=== PATIENT | female | born 1955 | race Caucasian/White ===

== ENCOUNTER 2017-04-25 13:11 | Outpatient (RCR) | payer MEDICARE, MEDICAID, SELFPAY ==
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
--- NOTE | 2017-05-24 14:43 | HP.PTDCNRP_ITS ---
HP - Discharge Summary (1) - Patient Information DIONE LOWE was seen in my office for initial evaluation on 04/25/17. The following Plan of Care was established for this patient: Initial Frequency: 2-3x /Week Initial Duration: 4-6 Weeks - Anticipated Interventions Patient/Client Instruction: Educate patient on: Condition, Plan of Care For the Purpose of:: To improve self management Therapeutic Exercise to Include: Strength training, Endurance training, Postural training, Flexibilty training, Active ROM, Scapular Strength/ Stabilization For the Purpose of:: To decrease pain, To increase ROM, To improve muscle performance and motor function Cryotherapy (ice pack, ice massage): Yes For the Purpose of:: To decrease pain This patient was last seen in our office . Pertinent comments regarding their Physical therapy will appear below: Pt phoned the clinic on the date of 05/21/17 to report she wanted to cancel all of her appt's and be discharged at that time. At this point I will be discontinuing this patient from physical therapy. I would be happy to see this patient again in the future if found appropriate by the physician. Thank you! Michael Matthew, PT,
== END 2017-04-25 19:00 | disposition home or self-care (01) ==
LOC: PT 13:11
PROVIDERS: Family Provider Student in an Organized Health Care Education/Training Program; PCP Student in an Organized Health Care Education/Training Program; Visit Provider Orthopaedic Surgery
DX: M75.101 Unspecified rotator cuff tear or rupture of right shoulder, not specified as traumatic (principal)
CPT/HCPCS: 97162

== ENCOUNTER → 2017-06-19 20:00 | Outpatient (CLI) | payer MEDICARE, MEDICAID, SELFPAY | PROVIDERS: Family Provider Student in an Organized Health Care Education/Training Program; PCP Student in an Organized Health Care Education/Training Program; Visit Provider Nurse Practitioner Adult Health | DX: G47.33 Obstructive sleep apnea (adult) (pediatric) (principal) | CPT/HCPCS: 95810 ==

== ENCOUNTER → 2017-08-07 15:37 | Outpatient (CLI) | payer MEDICARE, MEDICAID, SELFPAY ==
--- NOTE | 2017-08-07 15:40 | RAD_ITS ---
STUDY: X-RAY - PELVIS AND RIGHT HIP REASON FOR EXAM: Female, 61 years old. Chronic pain TECHNIQUE: Three views of the pelvis and hip were obtained. COMPARISON: May 29, 2016 FINDINGS: The bowel gas pattern is unremarkable. Phleboliths are stable in the lower pelvis. The visualized iliac wings, sacroiliac joints and sacrum are unremarkable. No abnormalities are seen in the visualized superior and inferior pubic rami. Normal appearing pubic symphysis. The visualized ischial tuberosities are unremarkable. There is bony overgrowth off the femoral head. There is minimal sclerosis in the upper right acetabulum. There is moderate articular joint space narrowing of the hip. RAD/Hip 2-3 Views with Pelvis IMPRESSION: Moderate degenerative changes are again seen in the right hip. Electronically Signed: Alisa Leal MD at 2:16 EDT Tel Direct: [phone], Service support ,
== END ==
PROVIDERS: Family Provider Student in an Organized Health Care Education/Training Program; PCP Student in an Organized Health Care Education/Training Program; Visit Provider Anesthesiology
DX: M16.11 Unilateral primary osteoarthritis, right hip (principal)
CPT/HCPCS: 73502

== ENCOUNTER → 2017-08-19 15:41 | Outpatient (CLI) | payer MEDICARE, MEDICAID, SELFPAY ==
--- NOTE | 2017-08-19 15:45 | BI_ITS ---
MAMMOGRAPHY - BILATERAL SCREENING 3-D ENEDINA SYNTHESIS REASON FOR EXAM: Female, 61 years old. Bilateral Screening 3-D tomosynthesis PERTINENT HISTORY: No significant family history. TECHNIQUE: 2-D mammograms and 3-D Enedina synthesis of the breast (s) were performed. CAD was performed. COMPARISON: December 23, 2015. FINDINGS: The breast composition is composed of scattered fibroglandular density. Scattered benign calcifications are seen. No dense spiculated masses or suspicious microcalcifications are identified. No architectural distortion is identified. There is no skin thickening or retraction. There has been no significant change since the prior study. BI/SCREENING MAMM (CAD), BILAT IMPRESSION: No mammographic signs of malignancy. Routine yearly mammograms recommended. ASSESSMENT CATEGORY: BIRADS Category 2: Benign. A letter regarding these results will be sent to the patient by the facility within 30 days. FOLLOW UP RECOMMENDATION: Yearly follow up mammogram recommended. (A) Approximately 10% of breast cancers are not detected by mammography. A normal mammogram should not delay biopsy of a clinically suspicious abnormality. Electronically Signed: Jacob Solo MD at 7:46 EDT , Service support ,
== END ==
PROVIDERS: Family Provider Student in an Organized Health Care Education/Training Program; PCP Student in an Organized Health Care Education/Training Program; Visit Provider Obstetrics & Gynecology
DX: Z12.31 Encounter for screening mammogram for malignant neoplasm of breast (principal)
CPT/HCPCS: 77063; 77067

== ENCOUNTER → 2017-11-19 17:11 | Outpatient (CLI) | payer MEDICARE, MEDICAID, SELFPAY ==
[2017-11-19 18:31] LABS: Absolute Lymphocyte Count 3.43 X10^3/ul (0.83-4.51); Absolute Neutrophil Count 4.3 X10^3/uL (2.0-7.7); Basophil# 0.08 X10^3/uL; Basophil% 0.9 % (0-1); Eosinophil# 0.54 X10^3/uL; Eosinophils% 5.8 % (0-5); Hematocrit 39.6 % (37-47); Hemoglobin 12.7 g/dl (12.0-15.0); Lymphocyte # 3.43 X10^3/ul (4.0); Lymphocyte % 36.8 % (19-41); Mean Corp Hgb Conc 32.1 g/gl (32-36); Mean Corpuscular Hgb 32.6 pg (27.0-32.0); Mean Corpuscular Volume 101.5 fL (81-99); Mean Platelet Vol. 10.4 fl (6.2-12.0); Monocyte# 0.99 X10^3/uL; Monocyte% 10.6 % (0-10); Neutrophil # 4.27 X10^3/uL (2.7-7.7); Neutrophil % 45.8 % (47-70); Platelet Count 291 K/mm3 (150-450); RBC Distribution Width CV 12.7 % (11.6-14.6); RBC Distribution Width SD 47.4 fl (35.1-43.9); White Blood Count 9.3 K/mm3 (4.4-11.0)
[2017-11-19 18:44] LABS: ALB/GLOB Ratio 0.9 RATIO (0.9-2.4); AST(SGOT) 12 U/L (15-37); Alanine Aminotransfer ALT/SGPT 16 U/L (13-56); Alkaline Phosphatase 92 U/L (45-117); Anion Gap 8 (5-15); BUN 8 mg/dL (7-18); BUN/Creat Ratio 10.1 RATIO (10-20); Calcium,Total 8.4 mg/dL (8.5-10.1); Chloride 105 mmol/L (98-107); Creatinine, Serum 0.79 mg/dL (0.55-1.02); EST Glomerular Filtration Rate 79 mL/min (>60); Est Glom Filt Rate - Afr Amer 95 mL/min (>60); Globulin 3.5 g/dL (2.2-4.2); Glucose 128 mg/dL (74-106); POSITIVE COUNT NO; POSITIVE DIFFERENTIAL NO; POSITIVE MORPHOLOGY NO; Potassium 3.7 mmol/L (3.5-5.1); Protein, Total 6.5 g/dL (6.4-8.2); Sodium Level 141 mmol/L (136-145)
[2017-11-19 18:58] LABS: Valproic Acid (Depakene) Level 43 ug/mL (50-100)
[2017-11-22 09:51] LABS: Topiramate 4.3 ug/mL (2.0-25.0)
== END ==
PROVIDERS: Family Provider Student in an Organized Health Care Education/Training Program; PCP Student in an Organized Health Care Education/Training Program
DX: R56.9 Unspecified convulsions (principal)
CPT/HCPCS: 36415; 80053; 80164; 80185; 80201; 85025

== ENCOUNTER 2017-12-02 17:53 | Emergency (ER) | payer MEDICARE, MEDICAID, SELFPAY ==
[2017-12-02 17:57] VITALS: BP 98/79; PULSE 96; RESP 20; TEMP 37; O2SAT 96; BMI 42.6
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
[2017-12-02] MEDS: oxyCODONE 5 MG Tablet PO (18:24)
[2017-12-02] MEDS: Gabapentin 300 MG Capsule PO (18:29)
[2017-12-02 18:54] VITALS: RESP 16
[2017-12-02 19:00] VITALS: RESP 16
[2017-12-02 20:24] VITALS: BP 138/79; PULSE 84; RESP 16; O2SAT 98
== END 2017-12-02 20:27 | disposition home or self-care (01) ==
PROVIDERS: Emergency Provider Emergency Medicine; Family Provider Student in an Organized Health Care Education/Training Program; PCP Student in an Organized Health Care Education/Training Program
DX: M54.9 Dorsalgia, unspecified (principal); G89.29 Other chronic pain; R46.89 Other symptoms and signs involving appearance and behavior; E11.9 Type 2 diabetes mellitus without complications; I34.1 Nonrheumatic mitral (valve) prolapse; Z79.82 Long term (current) use of aspirin; Z79.899 Other long term (current) drug therapy; Z72.0 Tobacco use
CPT/HCPCS: 99285

== ENCOUNTER 2018-01-13 10:34 | Emergency (ER) | payer MEDICARE, MEDICAID, SELFPAY ==
[2018-01-13 10:37] VITALS: BP 117/74; PULSE 93; RESP 18; TEMP 36.7; O2SAT 99; BMI 40.2
[2018-01-13] MEDS: Acetaminophen 500 MG Tablet 1000 MG PO (10:52)
[2018-01-13] MEDS: Diphth,Pertuss(Acell),Tet Vac 0.5 ML Vial IM (10:53)
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
--- NOTE | 2018-01-13 11:00 | RAD_ITS ---
STUDY: X-RAY - LEFT FOOT CLINICAL: Female, 62 years old. Injury to the second toe. TECHNIQUE: 3 view(s) of the foot. COMPARISON: None. FINDINGS: There is a plantar calcaneal spur. Normal visualized subtalar, talonavicular, calcaneocuboid, tarsal and tarsometatarsal articulations. Normal metatarsi. Normal metatarsophalangeal joint of the great toe. Normal tibial and fibular sesamoid bones. Normal interphalangeal joint of the great toe. Normal phalanges of the great toe. Normal second through fifth metatarsophalangeal joints. Normal interphalangeal joints and phalanges of the lesser toes. Soft tissue swelling. There is evidence of soft tissue injury overlying the distal phalanx of the second toe. RAD/Foot min 3 Views IMPRESSION: Soft tissue swelling with a soft tissue injury overlying the tuft of the distal phalanx of the second toe. Electronically Signed: Raoul Cobian MD at 11:25 EDT Tel [phone], Service support ,
[2018-01-13 11:35] VITALS: BP 140/90; PULSE 87; RESP 16; O2SAT 98
== END 2018-01-13 11:45 | disposition home or self-care (01) ==
LOC: ED 11:37
PROVIDERS: Emergency Provider Emergency Medicine; Family Provider Internal Medicine; PCP Internal Medicine
DX: S92.532B Displaced fracture of distal phalanx of left lesser toe(s), initial encounter for open fracture (principal); S91.215A Laceration without foreign body of left lesser toe(s) with damage to nail, initial encounter; W22.09XA Striking against other stationary object, initial encounter; Y93.01 Activity, walking, marching and hiking; H54.8 Legal blindness, as defined in USA; I10 Essential (primary) hypertension; E11.9 Type 2 diabetes mellitus without complications; Z79.84 Long term (current) use of oral hypoglycemic drugs; Z79.82 Long term (current) use of aspirin; Z79.899 Other long term (current) drug therapy; Z87.891 Personal history of nicotine dependence
CPT/HCPCS: 73630; 90715; 99283

== ENCOUNTER → 2018-02-07 15:47 | Outpatient (CLI) | payer MEDICARE, MEDICAID, SELFPAY ==
--- NOTE | 2018-02-07 16:22 | RAD_ITS ---
STUDY: X-RAY - PELVIS AND LEFT HIP REASON FOR EXAM: Female, 62 years old. Left hip pain TECHNIQUE: Radiological exam, hip, unilateral, with pelvis when performed; 2 or 3 views. COMPARISON: None. FINDINGS: There is a non-specific bowel gas pattern. Normal visualized soft tissue structures. Severe degenerative narrowing of the right hip. Normal bilateral iliac wings, sacroiliac joints and visualized sacrum. Normal bilateral superior and inferior pubic rami. Normal pubic symphysis. Normal bilateral ischial tuberosities. Normal visualized femoral head. There is osteoarthritic spur formation of the acetabular rim. There is mild articular joint space narrowing of the hip. RAD/HIP, UNI W/ Pelvis 2-3 Views IMPRESSION: Degenerative findings of the hips. Electronically Signed: Michael Giordano MD at 17:55 EDT , Service support ,
[2018-02-07 17:53] LABS: Amphetamine Urine VISTA NEGATIVE (<1000 ng/mL); Barbiturate Urine VISTA NEGATIVE (< 200 ng/mL); Benzodiazepine Urine VISTA NEGATIVE (< 200 ng/mL); Cocaine Urine VISTA NEGATIVE (< 300 ng/mL); Ecstacy Urine VISTA NEGATIVE (< 500 ng/mL); Methadone Urine VISTA NEGATIVE (< 300 ng/mL); PCP Urine VISTA NEGATIVE (< 25 ng/mL); THC Urine VISTA NEGATIVE (< 50 ng/mL); Vista UDS pH Range 6
== END ==
PROVIDERS: Family Provider Internal Medicine; PCP Internal Medicine; Referring Provider Anesthesiology; Visit Provider Anesthesiology
DX: F11.20 Opioid dependence, uncomplicated (principal); M25.552 Pain in left hip
CPT/HCPCS: 73502; 80307

== ENCOUNTER 2018-02-19 14:59 | Observation (INO) | payer MEDICARE, MEDICAID, SELFPAY ==
[2018-02-19 15:00] VITALS: BP 136/81; PULSE 89; RESP 16; TEMP 36.7; O2SAT 97; BMI 40.6
--- NOTE | 2018-02-19 16:13 | CT_ITS ---
STUDY: CT BRAIN WITHOUT CONTRAST REASON FOR EXAM: Female, 62 years old. Fell, hit head. RADIATION DOSAGE (If Supplied By Facility): CTDIvol = ( 44.99 ) mGy, DLP = ( 796.11 ) mGycm TECHNIQUE: Transaxial CT imaging of the brain was performed without administration of intravenous contrast material. Individualized dose optimization techniques were used for this CT. COMPARISON: 05/16/2017. FINDINGS: There is mild left frontal soft tissue swelling. Normal calvarium. Normal size ventricles and extra-axial spaces for the patient's age. Normal white matter tracts of the cerebral hemispheres. Normal basal ganglia and thalami. Normal brainstem. Normal cerebellum. There is no intracranial hemorrhage. There are no findings of an acute ischemic infarction. Normal visualized paranasal sinuses. CT/Brain/Head without Contrast IMPRESSION: Mild soft tissue swelling. No intracranial findings. Electronically Signed: Sonal Bedolla MD at 17:54 EDT Tel , Service support ,
--- NOTE | 2018-02-19 16:13 | CT_ITS ---
STUDY: CT CERVICAL SPINE WITHOUT CONTRAST REASON FOR EXAM: Female, 62 years old. Fell, hit head. RADIATION DOSAGE (If Supplied By Facility): CTDIvol = ( 16.38 ) mGy, DLP = ( 326.54 ) mGycm TECHNIQUE: High resolution transaxial imaging was performed without contrast material. Sagittal and coronal images were reconstructed. Individualized dose optimization techniques were used for this CT. COMPARISON: None FINDINGS: Normal craniovertebral junction. Normal anterior atlantoaxial articulation. Normal odontoid process. Normal cervical lordosis. Normal vertebral bodies and posterior osseous elements. C2-3: Normal endplates. Normal disc height and morphology. Normal central canal and intervertebral neuroforamina. C3-4: Normal endplates. Normal disc height and morphology. Normal central canal and intervertebral neuroforamina. C4-5: Normal endplates. Normal disc height and morphology. Normal central canal and intervertebral neuroforamina. There is mild facet hypertrophy, greater on the right. C5-6: Normal endplates. Normal disc height and morphology. Normal central canal and intervertebral neuroforamina. There is mild facet hypertrophy, greater on the right. C6-7: Normal endplates. Normal disc height and morphology. Normal central canal and intervertebral neuroforamina. C7-T1: Normal endplates. Normal disc height and morphology. Normal central canal and intervertebral neuroforamina. Normal visualized soft tissue structures. CT/Spine Cervical without Contras IMPRESSION: 1. No evidence of trauma. 2. Minimal degenerative changes. Electronically Signed: Sonal Bedolla MD at 18:07 EDT Tel , Service support ,
--- NOTE | 2018-02-19 16:21 | EKG12_ITS ---
Test Reason : FALL Blood Pressure : / mmHG Vent. Rate : 084 BPM Atrial Rate : 084 BPM P-R Int : 192 ms QRS Dur : 080 ms QT Int : 384 ms P-R-T Axes : 028 -16 007 degrees QTc Int : 453 ms Normal sinus rhythm Inferior infarct , age undetermined Abnormal ECG Confirmed by CATHY ROJAS, LUIS M ([id number]), content editor PHUONG VELEZ ([id number] on 02/21/2018 1:29:49 PM Referred By: VINCENT Confirmed By:LUIS M MORGAN MD
--- NOTE | 2018-02-19 16:21 | ED.VISSUMM ---
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 Patient was at 180 at a mental health appointment for schizophrenia. They noticed slurred speech and leaning to her right side. When she stood up she fell and hit the left side of her head. She did not lose consciousness. No vomiting. Tetanus is up-to-date. She lives alone. She is a poor historian. Physical Examination: Vitals are stable. Patient is afebrile. Alert no acute distress. HEENT exam is unremarkable. Neck is nontender Lungs are clear and equal bilaterally. Heart is regular rate and rhythm. Abdomen is soft nontender nondistended. Back is nontender Extremities are unremarkable. Skin is warm and dry. Alert and oriented x2, normal strength and sensation, chronically blind Remainder of exam is unremarkable. Emergency Department Course and Treatment: EKG is sinus rate of 84 with no acute ischemic changes. CBC, chemistries unremarkable. Dilantin level 7.5, Depakote level 60. CT head shows no acute process. CT C-spine shows no fracture. Urinalysis is unremarkable. On reevaluation, her symptoms have improved. Her slurred speech and confusion have resolved. She is now alert and oriented x3. NIH is 0. Discussed with the hospitalist for observation. Disposition: Observation Impression: TIA This note was generated with [employer] dictation software. It may contain incorrect words, spelling, and punctuation that were not noted in review of the chart prior to signing ED Disposition - Plan for ED Patient: Chief Complaint: Fall Referrals: Fatoumata Rosen MD [Primary Care Provider] -
--- NOTE | 2018-02-19 16:24 | ED.DCSUM_ITS ---
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 Patient was at 180 at a mental health appointment for schizophrenia. They noticed slurred speech and leaning to her right side. When she stood up she fell and hit the left side of her head. She did not lose consciousness. No vomiting. Tetanus is up-to-date. She lives alone. She is a poor historian. Physical Examination: Vitals are stable. Patient is afebrile. Alert no acute distress. HEENT exam is unremarkable. Neck is nontender Lungs are clear and equal bilaterally. Heart is regular rate and rhythm. Abdomen is soft nontender nondistended. Back is nontender Extremities are unremarkable. Skin is warm and dry. Alert and oriented x2, normal strength and sensation, chronically blind Remainder of exam is unremarkable. Emergency Department Course and Treatment: EKG is sinus rate of 84 with no acute ischemic changes. CBC, chemistries unremarkable. Dilantin level 7.5, Depakote level 60. CT head shows no acute process. CT C-spine shows no fracture. Urinalysis is unremarkable. On reevaluation, her symptoms have improved. Her slurred speech and confusion have resolved. She is now alert and oriented x3. NIH is 0. Discussed with the hospitalist for observation. Disposition: Observation Impression: TIA This note was generated with [employer] dictation software. It may contain incorrect words, spelling, and punctuation that were not noted in review of the chart prior to signing ED Disposition - Plan for ED Patient: Chief Complaint: Fall Referrals: Fatoumata Rosen MD [Primary Care Provider] -
[2018-02-19 16:56] LABS: Absolute Lymphocyte Count 2.79 X10^3/ul (0.83-4.51); Absolute Neutrophil Count 6.5 X10^3/uL (2.0-7.7); Basophil# 0.04 X10^3/uL; Basophil% 0.4 % (0-1); Eosinophil# 0.37 X10^3/uL; Eosinophils% 3.4 % (0-5); Hematocrit 39.2 % (37-47); Hemoglobin 12.7 g/dl (12.0-15.0); Lymphocyte # 2.79 X10^3/ul (4.0); Lymphocyte % 25.8 % (19-41); Mean Corp Hgb Conc 32.4 g/gl (32-36); Mean Corpuscular Hgb 31.8 pg (27.0-32.0); Mean Platelet Vol. 10.5 fl (6.2-12.0); Monocyte# 1.09 X10^3/uL; Monocyte% 10.1 % (0-10); Neutrophil # 6.52 X10^3/uL (2.7-7.7); Neutrophil % 60.1 % (47-70); POSITIVE COUNT NO; POSITIVE DIFFERENTIAL NO; POSITIVE MORPHOLOGY NO; Platelet Count 249 K/mm3 (150-450); RBC Distribution Width SD 45.6 fl (35.1-43.9); White Blood Count 10.8 K/mm3 (4.4-11.0)
[2018-02-19 17:22] LABS: Anion Gap 6 (5-15); BUN 15 mg/dL (7-18); BUN/Creat Ratio 19.2 RATIO (10-20); Calcium,Total 8.5 mg/dL (8.5-10.1); Chloride 106 mmol/L (98-107); Creatinine, Serum 0.78 mg/dL (0.55-1.02); EST Glomerular Filtration Rate 80 mL/min (>60); Est Glom Filt Rate - Afr Amer 96 mL/min (>60); Glucose 103 mg/dL (74-106); Potassium 3.6 mmol/L (3.5-5.1); Sodium Level 143 mmol/L (136-145)
[2018-02-19 17:24] LABS: Phenytoin (Dilantin) Level 7.5 mL (10.0-20.0); Valproic Acid (Depakene) Level 60 ug/mL (50-100)
[2018-02-19 17:59] LABS: Bacteria 0 SEEN /hpf (None Seen); Mucous, Urine 0 SEEN /hpf (<or=2+); Red Blood Cells-Urine 0 SEEN /hpf (0-5); White Blood Cells 0 SEEN /hpf (0-5)
[2018-02-19 18:06] LABS: Color, Urine Yellow (Yellow); Glucose, Dipstick Normal (Normal); Ketone-Dipstick Negative (Negative); Leukocyte Esterase-Dipstick 25 /ul (Negative); Nitrite-Dipstick Negative (Negative); Occult Blood-Urine Negative /ul (Negative); Protein-Dipstick Negative (Negative); Urine Bilirubin Dipstick Negative (Negative); Urine Clarity Sl. Cloudy (Clear); Urine Urobilinogen Normal (Normal)
[2018-02-19 18:12] LABS: Squamous Epithelial Cells - UA 0-5 SEEN /hpf (5-10)
[2018-02-19 19:00] VITALS: BP 118/69; PULSE 85; RESP 16; O2SAT 95
[2018-02-19 19:17] VITALS: BMI 40.6
--- NOTE | 2018-02-19 19:17 | PCM.HP.STD ---
Problem List (1) Encephalopathy Status: Acute (2) Accident due to mechanical fall without injury Status: Acute Qualifiers: Encounter type: initial encounter Qualified Code(s): W19.XXXA - Unspecified fall, initial encounter (3) Anxiety and depression Status: Acute (4) Schizophrenia Status: Chronic Qualifiers: Schizophrenia type: unspecified Qualified Code(s): F20.9 - Schizophrenia, unspecified (5) COPD (chronic obstructive pulmonary disease) Status: Chronic Qualifiers: COPD type: unspecified COPD Qualified Code(s): J44.9 - Chronic obstructive pulmonary disease, unspecified (6) Tobacco use Status: Chronic (7) Spondylosis of lumbar region without myelopathy or radiculopathy Status: Chronic (8) Diabetes Status: Chronic Qualifiers: Diabetes mellitus type: type 2 Diabetes mellitus penitentiary insulin use: without terminal clerk use Diabetes mellitus complication status: with unspecified complications Qualified Code(s): E11.8 - Type 2 diabetes mellitus with unspecified complications (9) Legal blindness Status: Chronic (10) HTN (hypertension) Status: Chronic Qualifiers: Hypertension type: essential hypertension Qualified Code(s): I10 - Essential (primary) hypertension (11) MVP (mitral valve prolapse) Status: Chronic (12) Morbid obesity Status: Chronic History of Present Illness Date of Admission: 02/19/18 Chief Complaint: Fall, hit head and neck The patient is a 62 y/o F w/ PMHx: Migraines, Morbid Obesity, Diabetes mellitus type II, HTN, HLD, Tobacco use, Legal Blindness, Chronic lumbar back pain w/ radiculopathy, Chronic COPD, Seizure disorder, Anxiety and Depression/Schizophrenia/Bipolar who presents from [facility] to the [facility] ED on 02/19/18 with history of being evaluated by her therapist at [facility] for routine Schizophrenia evaluation and during the visit noted to have been acting peculiarly with fall in the office hitting her right lateral face above the eye upon the fall with no loss of consciousness prompting ED referral. Family contacted and noted that patient has been mistaking her medications and has not been compliant with her psychiatric regimen. Requested upon discussion with ED UDS and ETOH level be obtained. Otherwise, ED work-up included T 98.1, heart rate 89, BP 136/81, respiratory rate 16, 97% on room air, unremarkable CBC, unremarkable BMP, UA unremarkable, phenytoin level 7.5, valproic acid level 60, CT head with mild soft tissue swelling otherwise no acute intracranial findings, CT cervical spine with no evidence of trauma with minimal degenerative changes. Past Medical History Past Medical History (Chronic Problems): Chronic Problems Schizophrenia (Chronic) COPD (chronic obstructive pulmonary disease) (Chronic) Tobacco use (Chronic) Morbid obesity (Chronic) Tobacco user (Chronic) Spondylosis of lumbar region without myelopathy or radiculopathy (Chronic) Diabetes (Chronic) Legal blindness (Chronic) HTN (hypertension) (Chronic) MVP (mitral valve prolapse) (Chronic) Allergies sumatriptan [From Imitrex] Adverse Reaction (Verified 02/19/18 15:03) Vomiting sumatriptan succinate [From Imitrex] Adverse Reaction (Verified 02/19/18 15:03) Vomiting BEE STING Allergy (Uncoded 02/19/18 15:03) Anaphylaxis PAPER TAPE Adverse Reaction (Uncoded 02/19/18 15:03) Rash Home Medications: Ambulatory Orders Medication Instructions Recorded Ziprasidone HCl [Geodon] 80 mg PO BID 07/11/13 Venlafaxine HCl [Effexor] 150 mg PO DAILY 10/31/13 Pravastatin [Pravachol] 80 mg PO QHS 09/07/15 Aspirin [Aspirin, Baby] 81 mg PO DAILY@0800 03/11/16 Magnesium Oxide 400 mg PO DAILY 03/11/16 Topiramate [Topiramate ER] 200 mg PO BID 05/29/16 Haloperidol 20 mg PO TID 05/21/17 Calcium Carbonate/Vitamin D3 1 each PO DAILY 12/02/17 [Oyster Shell Calcium-Vit D Tab] Divalproex (ER) [Depakote ER] 250 mg PO BID 12/02/17 Gabapentin [Neurontin] 300 mg PO TID 30 Days #90 cap 12/02/17 Meloxicam 15 mg PO DAILY 12/02/17 Morphine Sulfate [Morphine Sulfate 15 mg PO Q6H PRN PRN 12/02/17 ER] Oxycodone HCl/Acetaminophen 1 tablet PO Q6H PRN PRN 12/02/17 [Percocet 5/325] Phenytoin Sodium Extended 100 mg PO BID 12/02/17 [Dilantin] Potassium Chloride 10 meq PO BID 12/02/17 Surgical History: - - Cholecystectomy bilateral knee replacement versus arthroscopic surgery. Psychiatric History: Anxiety, Depression, Schizophrenia SKIN FITTER History: No pertinent SKIN FITTER history Lives: Alone Smoking Status: Current every day smoker - 1 pack/day cigarette tobacco usage. Tobacco Use: Cigarettes Alcohol: None Drugs: None - *Family History Paternal History Items: - - Patient notes a maternal and paternal family history of heart disease including hypertension and diabetes. Maternal History Items: - - Patient notes a maternal and paternal family history of heart disease including hypertension and diabetes. Review of Systems Constitutional: Reports: Malaise, Weakness, Fatigue. Denies: Chills, Fever, Weight Change HEENT: Denies: Head Aches, Sinus Congestion, Sinus Drainage Cardiovascular: Denies: Chest Pain, Palpitations Respiratory: Reports: Shortness of breath upon exertion. Denies: Cough, Shortness of breath at rest, Sputum production Gastrointestinal: Denies: Abdominal Pain, Nausea, Vomiting Genitourinary: Denies: Dysuria Musculoskeletal: Reports: Back Pain. Denies: Joint Pain, Joint Tenderness Skin: Reports: Skin Changes. Denies: Rash, Wounds Neurological: Reports: Confusion. Denies: Focal weakness, Numbness, Tingling Psychiatric: Reports: Anxiety, Depression. Denies: Homicidal Ideations, Suicidal Ideations Hematologic/ Lymphatic: Denies: Easy Bruising, Easy Bleeding VTE Information - Inpt Only VTE Present on Admission: No VTE Mechan Device Prophylaxis: SCD's VTE Pharm Prophylaxis ordered?: Yes Patient Problems: Active and Suspected Problems Encephalopathy (Acute) Accident due to mechanical fall without injury (Acute) Anxiety and depression (Acute) Subjective: Seated upright in the ED bed, fatigued appearing but NAD, no acute complaints. Objective: Physical Examination: General: awake, alert, oriented x [address], year, month and cooperative, seated upright in the ED bed in no apparent distress. Skin: normal color, turgor, no icterus, cyanosis except small ecchymoses to the left lateral facies near the eye with a small laceration with no bleeding. HEENT: AT/NC except small bruise and laceration as noted in skin, EOMI, PERRLA, mildly dry MM, no carotid bruits or JVD noted. Lungs: Diminished BS BL, > bases, moderate effort, mild decrease BL bases, no rales, ronchi or wheezing. Heart: Regular rate and rhythm; no gallop, rub audible. Abdomen: soft, morbidly obese, NTTP, ND, normal BS, no HSM; however, habitus makes examination difficult. Extremities: no cyanosis, clubbing, BL LE ankle mild edema. Neurological: patient awake, alert, oriented x 3 as noted; cognitive function seems baseline intact compared also to prior visit evaluations; pupils equally reactive to light and accomodation; cranial nerves II-XII grossly normal, moving all 4 extremities, no focal deficits, strength moderately globally decreased. Psychiatric: affect appears flat, no acute evidence of depressive or anxiety feelings. - Physical Exam Vital Signs Temp Pulse Resp BP Pulse Ox 98.1 F 89 16 136/81 H 97 02/19/18 15:00 02/19/18 15:00 02/19/18 15:00 02/19/18 15:00 02/19/18 15:00 Oxygen Delivery Method Room Air Weight: 222 lb Body Mass Index (BMI) 40.6 Finger Stick Blood Glucose 120 Laboratory Tests Past 24 Hrs 02/19/18 02/19/18 02/19/18 16:40 16:40 16:40 WBC 10.8 RBC 4.00 L Hgb 12.7 Hct 39.2 MCV 98.0 MCH 31.8 MCHC 32.4 RDW 13.0 RDW Differential 45.6 H Plt Count 249 MPV 10.5 Immature Gran % (Auto) 0.200 Neut % (Auto) 60.1 Lymph % (Auto) 25.8 [place] % (Auto) 10.1 H Eos % (Auto) 3.4 Baso % (Auto) 0.4 Absolute Neuts (auto) 6.5 Absolute Lymphs (auto) 2.79 Total Counted Not Reportable Sodium 143 Potassium 3.6 Chloride 106 Carbon Dioxide 31.0 Anion Gap 6 BUN 15 Creatinine 0.78 Estim Creat Clear Calc 59.90 Est GFR (MDRD) Af Amer 96 Est GFR (MDRD) Non-Af 80 BUN/Creatinine Ratio 19.2 Glucose 103 Calcium 8.5 Urine Color Urine Clarity Urine pH Ur Specific [place] Urine Protein Urine Glucose (UA) Urine Ketones Urine Occult Blood Urine Nitrite Urine Bilirubin Urine Urobilinogen Ur Leukocyte Esterase Urine RBC Urine WBC Ur Squamous Epith Cells Urine Bacteria Urine Mucus Phenytoin 7.5 L Valproic Acid 60 02/19/18 17:50 WBC RBC Hgb Hct MCV MCH MCHC RDW RDW Differential Plt Count MPV Immature Gran % (Auto) Neut % (Auto) Lymph % (Auto) [place] % (Auto) Eos % (Auto) Baso % (Auto) Absolute Neuts (auto) Absolute Lymphs (auto) Total Counted Sodium Potassium Chloride Carbon Dioxide Anion Gap BUN Creatinine Estim Creat Clear Calc Est GFR (MDRD) Af Amer Est GFR (MDRD) Non-Af BUN/Creatinine Ratio Glucose Calcium Urine Color Yellow Urine Clarity Sl. Cloudy Urine pH 7.0 Ur Specific [place] 1.010 Urine Protein Negative Urine Glucose (UA) Normal Urine Ketones Negative Urine Occult Blood Negative Urine Nitrite Negative Urine Bilirubin Negative Urine Urobilinogen Normal Ur Leukocyte Esterase 25 H Urine RBC 0 SEEN Urine WBC 0 SEEN Ur Squamous Epith Cells 0-5 SEEN Urine Bacteria 0 SEEN Urine Mucus 0 SEEN Phenytoin Valproic Acid Assessment/Plan All Active Problems Encephalopathy (Acute) Accident due to mechanical fall without injury (Acute) Anxiety and depression (Acute) Atypical right-sided chest pain (Acute) The patient is a 62 y/o F w/ PMHx: Migraines, Morbid Obesity, Diabetes mellitus type II, HTN, HLD, Tobacco use, Legal Blindness, Chronic lumbar back pain w/ radiculopathy, Chronic COPD, Seizure disorder, Anxiety and Depression/Schizophrenia/Bipolar who presents from [facility] to the [facility] ED on 02/19/18 with history of being evaluated by her therapist at [facility] for routine Schizophrenia evaluation and during the visit noted to have been acting peculiarly with fall in the office hitting her right lateral face above the eye upon the fall with no loss of consciousness prompting ED referral. (1) Encephalopathy, Suspected Toxic secondary to Pharmaceutical Errors, Medication misusage w/ Mechanical Fall: ED work-up included T 98.1, heart rate 89, BP 136/81, respiratory rate 16, 97% on room air, unremarkable CBC, unremarkable BMP, UA unremarkable, phenytoin level 7.5, valproic acid level 60, CT head with mild soft tissue swelling otherwise no acute intracranial findings, CT cervical spine with no evidence of trauma with minimal degenerative changes. UDS and EtOH level requested upon admission. Will admit to PCU given seizure history and unclear intake, maintain on seizure precautions, restart home medications pending UDS, EtOH, fall precautions, maintain on neuro checks. If need may consider AM Neurology consultation. May need (2) Chronic lumbar back pain w/ radiculopathy: Continue home morphine, oxycodone regimen once verified to prevent withdrawal pending also UDS. (3) Diabetes mellitus type II: No regimen listed, HgbA1c pending, ADA diet, accu checks w/ ISS. (4) Chronic COPD: ATC duonebs, PRN albuterol, HOB, IS parameters. (5) Morbid Obesity: Weight loss and lifestyle changes encouraged, nutrition consulted. (6) Tobacco Abuse: Encouraged cessation, inpatient consultation per RT, NR if desired. (7) Seizure disorder: Maintain on seizure precautions given fall history. Continue home Depakote, phenytoin and topiramate regimen. (8) Anxiety and Depression/Schizophrenia/Bipolar: Continue home Depakote, Haldol, venlafaxine, Geodon regimen. (9) Chronic Migraines: Continue home topiramate and depakote regimen. (10) Hyperlipidemia: Continue home statin regimen. (11) DVT Prophylaxis: SCDs, lovenox. Code Visit OBSV E&M: [id number] Initial observation care L3
--- NOTE | 2018-02-19 19:26 | HP.PCM_ITS ---
Problem List (1) Encephalopathy Status: Acute (2) Accident due to mechanical fall without injury Status: Acute Qualifiers: Encounter type: initial encounter Qualified Code(s): W19.XXXA - Unspecified fall, initial encounter (3) Anxiety and depression Status: Acute (4) Schizophrenia Status: Chronic Qualifiers: Schizophrenia type: unspecified Qualified Code(s): F20.9 - Schizophrenia, unspecified (5) COPD (chronic obstructive pulmonary disease) Status: Chronic Qualifiers: COPD type: unspecified COPD Qualified Code(s): J44.9 - Chronic obstructive pulmonary disease, unspecified (6) Tobacco use Status: Chronic (7) Spondylosis of lumbar region without myelopathy or radiculopathy Status: Chronic (8) Diabetes Status: Chronic Qualifiers: Diabetes mellitus type: type 2 Diabetes mellitus prison insulin use: without vermin exterminator use Diabetes mellitus complication status: with unspecified complications Qualified Code(s): E11.8 - Type 2 diabetes mellitus with unspecified complications (9) Legal blindness Status: Chronic (10) HTN (hypertension) Status: Chronic Qualifiers: Hypertension type: essential hypertension Qualified Code(s): I10 - Essential (primary) hypertension (11) MVP (mitral valve prolapse) Status: Chronic (12) Morbid obesity Status: Chronic History of Present Illness Date of Admission: 02/19/18 Chief Complaint: Fall, hit head and neck The patient is a 62 y/o F w/ PMHx: Migraines, Morbid Obesity, Diabetes mellitus type II, HTN, HLD, Tobacco use, Legal Blindness, Chronic lumbar back pain w/ radiculopathy, Chronic COPD, Seizure disorder, Anxiety and Depression/Schizophrenia/Bipolar who presents from [facility] to the [facility] ED on 02/19/18 with history of being evaluated by her therapist at [facility] for routine Schizophrenia evaluation and during the visit noted to have been acting peculiarly with fall in the office hitting her right lateral face above the eye upon the fall with no loss of consciousness prompting ED referral. Family contacted and noted that patient has been mistaking her medications and has not been compliant with her psychiatric regimen. Requested upon discussion with ED UDS and ETOH level be obtained. Otherwise, ED work-up included T 98.1, heart rate 89, BP 136/81, respiratory rate 16, 97% on room air, unremarkable CBC, unremarkable BMP, UA unremarkable, phenytoin level 7.5, valproic acid level 60, CT head with mild soft tissue swelling otherwise no acute intracranial findings, CT cervical spine with no evidence of trauma with minimal degenerative changes. Past Medical History Past Medical History (Chronic Problems): Chronic Problems Schizophrenia (Chronic) COPD (chronic obstructive pulmonary disease) (Chronic) Tobacco use (Chronic) Morbid obesity (Chronic) Tobacco user (Chronic) Spondylosis of lumbar region without myelopathy or radiculopathy (Chronic) Diabetes (Chronic) Legal blindness (Chronic) HTN (hypertension) (Chronic) MVP (mitral valve prolapse) (Chronic) Allergies sumatriptan [From Imitrex] Adverse Reaction (Verified 02/19/18 15:03) Vomiting sumatriptan succinate [From Imitrex] Adverse Reaction (Verified 02/19/18 15:03) Vomiting BEE STING Allergy (Uncoded 02/19/18 15:03) Anaphylaxis PAPER TAPE Adverse Reaction (Uncoded 02/19/18 15:03) Rash Home Medications: Ambulatory Orders Medication Instructions Recorded Ziprasidone HCl [Geodon] 80 mg PO BID 07/11/13 Venlafaxine HCl [Effexor] 150 mg PO DAILY 10/31/13 Pravastatin [Pravachol] 80 mg PO QHS 09/07/15 Aspirin [Aspirin, Baby] 81 mg PO DAILY@0800 03/11/16 Magnesium Oxide 400 mg PO DAILY 03/11/16 Topiramate [Topiramate ER] 200 mg PO BID 05/29/16 Haloperidol 20 mg PO TID 05/21/17 Calcium Carbonate/Vitamin D3 1 each PO DAILY 12/02/17 [Oyster Shell Calcium-Vit D Tab] Divalproex (ER) [Depakote ER] 250 mg PO BID 12/02/17 Gabapentin [Neurontin] 300 mg PO TID 30 Days #90 cap 12/02/17 Meloxicam 15 mg PO DAILY 12/02/17 Morphine Sulfate [Morphine Sulfate 15 mg PO Q6H PRN PRN 12/02/17 ER] Oxycodone HCl/Acetaminophen 1 tablet PO Q6H PRN PRN 12/02/17 [Percocet 5/325] Phenytoin Sodium Extended 100 mg PO BID 12/02/17 [Dilantin] Potassium Chloride 10 meq PO BID 12/02/17 Surgical History: - - Cholecystectomy bilateral knee replacement versus arthroscopic surgery. 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 Tobacco Use: Cigarettes Alcohol: None Drugs: None - *Family History Paternal History Items: - - Patient notes a maternal and paternal family history of heart disease including hypertension and diabetes. Maternal History Items: - - Patient notes a maternal and paternal family history of heart disease including hypertension and diabetes. Review of Systems Constitutional: Reports: Malaise, Weakness, Fatigue. Denies: Chills, Fever, Weight Change HEENT: Denies: Head Aches, Sinus Congestion, Sinus Drainage Cardiovascular: Denies: Chest Pain, Palpitations Respiratory: Reports: Shortness of breath upon exertion. Denies: Cough, Shortness of breath at rest, Sputum production Gastrointestinal: Denies: Abdominal Pain, Nausea, Vomiting Genitourinary: Denies: Dysuria Musculoskeletal: Reports: Back Pain. Denies: Joint Pain, Joint Tenderness Skin: Reports: Skin Changes. Denies: Rash, Wounds Neurological: Reports: Confusion. Denies: Focal weakness, Numbness, Tingling Psychiatric: Reports: Anxiety, Depression. Denies: Homicidal Ideations, Suicidal Ideations Hematologic/ Lymphatic: Denies: Easy Bruising, Easy Bleeding VTE Information - Inpt Only VTE Present on Admission: No VTE Mechan Device Prophylaxis: SCD's VTE Pharm Prophylaxis ordered?: Yes Patient Problems: Active and Suspected Problems Encephalopathy (Acute) Accident due to mechanical fall without injury (Acute) Anxiety and depression (Acute) Subjective: Seated upright in the ED bed, fatigued appearing but NAD, no acute complaints. Objective: Physical Examination: General: awake, alert, oriented x [address], year, month and cooperative, seated upright in the ED bed in no apparent distress. Skin: normal color, turgor, no icterus, cyanosis except small ecchymoses to the left lateral facies near the eye with a small laceration with no bleeding. HEENT: AT/NC except small bruise and laceration as noted in skin, EOMI, PERRLA, mildly dry MM, no carotid bruits or JVD noted. Lungs: Diminished BS BL, > bases, moderate effort, mild decrease BL bases, no rales, ronchi or wheezing. Heart: Regular rate and rhythm; no gallop, rub audible. Abdomen: soft, morbidly obese, NTTP, ND, normal BS, no HSM; however, habitus makes examination difficult. Extremities: no cyanosis, clubbing, BL LE ankle mild edema. Neurological: patient awake, alert, oriented x 3 as noted; cognitive function seems baseline intact compared also to prior visit evaluations; pupils equally reactive to light and accomodation; cranial nerves II-XII grossly normal, moving all 4 extremities, no focal deficits, strength moderately globally decreased. Psychiatric: affect appears flat, no acute evidence of depressive or anxiety feelings. - Physical Exam Vital Signs Temp Pulse Resp BP Pulse Ox 98.1 F 89 16 136/81 H 97 02/19/18 15:00 02/19/18 15:00 02/19/18 15:00 02/19/18 15:00 02/19/18 15:00 Oxygen Delivery Method Room Air Weight: 222 lb Body Mass Index (BMI) 40.6 Finger Stick Blood Glucose 120 Laboratory Tests Past 24 Hrs 02/19/18 02/19/18 02/19/18 16:40 16:40 16:40 WBC 10.8 RBC 4.00 L Hgb 12.7 Hct 39.2 MCV 98.0 MCH 31.8 MCHC 32.4 RDW 13.0 RDW Differential 45.6 H Plt Count 249 MPV 10.5 Immature Gran % (Auto) 0.200 Neut % (Auto) 60.1 Lymph % (Auto) 25.8 [place] % (Auto) 10.1 H Eos % (Auto) 3.4 Baso % (Auto) 0.4 Absolute Neuts (auto) 6.5 Absolute Lymphs (auto) 2.79 Total Counted Not Reportable Sodium 143 Potassium 3.6 Chloride 106 Carbon Dioxide 31.0 Anion Gap 6 BUN 15 Creatinine 0.78 Estim Creat Clear Calc 59.90 Est GFR (MDRD) Af Amer 96 Est GFR (MDRD) Non-Af 80 BUN/Creatinine Ratio 19.2 Glucose 103 Calcium 8.5 Urine Color Urine Clarity Urine pH Ur Specific [place] Urine Protein Urine Glucose (UA) Urine Ketones Urine Occult Blood Urine Nitrite Urine Bilirubin Urine Urobilinogen Ur Leukocyte Esterase Urine RBC Urine WBC Ur Squamous Epith Cells Urine Bacteria Urine Mucus Phenytoin 7.5 L Valproic Acid 60 02/19/18 17:50 WBC RBC Hgb Hct MCV MCH MCHC RDW RDW Differential Plt Count MPV Immature Gran % (Auto) Neut % (Auto) Lymph % (Auto) [place] % (Auto) Eos % (Auto) Baso % (Auto) Absolute Neuts (auto) Absolute Lymphs (auto) Total Counted Sodium Potassium Chloride Carbon Dioxide Anion Gap BUN Creatinine Estim Creat Clear Calc Est GFR (MDRD) Af Amer Est GFR (MDRD) Non-Af BUN/Creatinine Ratio Glucose Calcium Urine Color Yellow Urine Clarity Sl. Cloudy Urine pH 7.0 Ur Specific [place] 1.010 Urine Protein Negative Urine Glucose (UA) Normal Urine Ketones Negative Urine Occult Blood Negative Urine Nitrite Negative Urine Bilirubin Negative Urine Urobilinogen Normal Ur Leukocyte Esterase 25 H Urine RBC 0 SEEN Urine WBC 0 SEEN Ur Squamous Epith Cells 0-5 SEEN Urine Bacteria 0 SEEN Urine Mucus 0 SEEN Phenytoin Valproic Acid Assessment/Plan All Active Problems Encephalopathy (Acute) Accident due to mechanical fall without injury (Acute) Anxiety and depression (Acute) Atypical right-sided chest pain (Acute) The patient is a 62 y/o F w/ PMHx: Migraines, Morbid Obesity, Diabetes mellitus type II, HTN, HLD, Tobacco use, Legal Blindness, Chronic lumbar back pain w/ radiculopathy, Chronic COPD, Seizure disorder, Anxiety and Depression/Schizophrenia/Bipolar who presents from [facility] to the [facility] ED on 02/19/18 with history of being evaluated by her therapist at [facility] for routine Schizophrenia evaluation and during the visit noted to have been acting peculiarly with fall in the office hitting her right lateral face above the eye upon the fall with no loss of consciousness prompting ED referral. (1) Encephalopathy, Suspected Toxic secondary to Pharmaceutical Errors, Medication misusage w/ Mechanical Fall: ED work-up included T 98.1, heart rate 89, BP 136/81, respiratory rate 16, 97% on room air, unremarkable CBC, unremarkable BMP, UA unremarkable, phenytoin level 7.5, valproic acid level 60, CT head with mild soft tissue swelling otherwise no acute intracranial findings, CT cervical spine with no evidence of trauma with minimal degenerative changes. UDS and EtOH level requested upon admission. Will admit to PCU given seizure history and unclear intake, maintain on seizure precautions, restart home medications pending UDS, EtOH, fall precautions, maintain on neuro checks. If need may consider AM Neurology consultation. May need (2) Chronic lumbar back pain w/ radiculopathy: Continue home morphine, oxycodone regimen once verified to prevent withdrawal pending also UDS. (3) Diabetes mellitus type II: No regimen listed, HgbA1c pending, ADA diet, accu checks w/ ISS. (4) Chronic COPD: ATC duonebs, PRN albuterol, HOB, IS parameters. (5) Morbid Obesity: Weight loss and lifestyle changes encouraged, nutrition consulted. (6) Tobacco Abuse: Encouraged cessation, inpatient consultation per RT, NR if desired. (7) Seizure disorder: Maintain on seizure precautions given fall history. Continue home Depakote, phenytoin and topiramate regimen. (8) Anxiety and Depression/Schizophrenia/Bipolar: Continue home Depakote, Haldol, venlafaxine, Geodon regimen. (9) Chronic Migraines: Continue home topiramate and depakote regimen. (10) Hyperlipidemia: Continue home statin regimen. (11) DVT Prophylaxis: SCDs, lovenox. Code Visit OBSV E&M: 45524 Initial observation care L3
[2018-02-19 19:55] VITALS: BP 118/69; PULSE 85; RESP 16; O2SAT 95
[2018-02-19 20:03] VITALS: BMI 40.4
[2018-02-19 20:16] LABS: Amphetamine Urine VISTA NEGATIVE (<1000 ng/mL); Barbiturate Urine VISTA NEGATIVE (< 200 ng/mL); Benzodiazepine Urine VISTA NEGATIVE (< 200 ng/mL); Cocaine Urine VISTA NEGATIVE (< 300 ng/mL); Ecstacy Urine VISTA NEGATIVE (< 500 ng/mL); Methadone Urine VISTA NEGATIVE (< 300 ng/mL); PCP Urine VISTA NEGATIVE (< 25 ng/mL); THC Urine VISTA NEGATIVE (< 50 ng/mL); Vista UDS pH Range 6
[2018-02-19 20:27] VITALS: BP 157/72; PULSE 83; RESP 18; TEMP 36.5; O2SAT 96
[2018-02-19 20:53] LABS: Magnesium 1.9 mg/dL (1.6-2.6)
[2018-02-19 21:05] LABS: Hemoglobin A1c 5.2 % (4.2-6.3)
[2018-02-19] MEDS: Divalproex (ER) 250 MG Tablet PO (22:58)
[2018-02-19] MEDS: Pravastatin 80 MG Tablet PO (22:58)
[2018-02-19] MEDS: Gabapentin 300 MG Capsule PO (22:59)
[2018-02-19] MEDS: oxyCODONE 5 MG Tablet PO (22:59)
[2018-02-19] MEDS: Famotidine 20 MG Tablet PO (22:59)
[2018-02-19] MEDS: Phenytoin Na 100 MG Capsule PO (22:59)
[2018-02-19 23:10] VITALS: PULSE 83
[2018-02-19 23:16] LABS: Bedside Glucose 102 mg/dL (70-110)
[2018-02-20] VITALS (11 sets, daily range): BP systolic 106–130; BP diastolic 63–85; PULSE 77–95; RESP 14–18; TEMP 36.4–37.2; O2SAT 96–99
[2018-02-20] MEDS: Haloperidol 5 MG Tablet 20 MG PO ×2 (06:58→15:08)
[2018-02-20] MEDS: Gabapentin 300 MG Capsule PO ×2 (06:59→15:06)
[2018-02-20] MEDS: oxyCODONE 5 MG Tablet PO (07:00)
[2018-02-20 07:11] LABS: Bedside Glucose 96 mg/dL (70-110)
--- NOTE | 2018-02-20 08:05 | CPS ---
pt refused aerosol and smi
[2018-02-20] MEDS: Aspirin 81 MG TAB.CHEW PO (08:29)
[2018-02-20] MEDS: Meloxicam 15 MG Tablet PO (08:29)
[2018-02-20] MEDS: Phenytoin Na 100 MG Capsule PO ×2 (08:29→16:13)
[2018-02-20] MEDS: Venlafaxine XR 150 MG Capsule PO (08:30)
[2018-02-20] MEDS: Enoxaparin 40 MG/0.4 ML Syringe SC (08:30)
[2018-02-20] MEDS: Famotidine 20 MG Tablet PO (08:30)
[2018-02-20] MEDS: Divalproex (ER) 250 MG Tablet PO (08:31)
--- NOTE | 2018-02-20 09:14 | CASEMGMT ---
Addendum entered by Pastora Patrick 02/20/18 09:41: SW received fax from [facility]. Per [facility] patient recently stopped using the blister packs and went back to bottles. SW will talk with patient about this. Pastora PAULINO Original Note: SW noted consult for possible psych placement because patient is not taking meds appropriately. SW called [facility] to see if patient was still active with them. Per [place] they had to discharge her because she accused everyone that came into her apartment of stealing her medications. This was not a safe environment for students. SW called [facility], patient's pharmacy and asked if patient's meds are delivered in blister packs. They will send SW her medication list as some might be and others may not be. Await this list. Patient may benefit from getting her medications in blister packs if she is not already. Pastora JOSHI MSW
[2018-02-20 11:56] LABS: Bedside Glucose 107 mg/dL (70-110)
--- NOTE | 2018-02-20 12:54 | CASEMGMT ---
ELÍAS received a call from Geno Burris, patient's case supervisor through [email or web address]. She was asking about patient and whether or not she will be discharged. ELÍAS told her SW is not sure as physician has not been to the unit yet. Per Geno patient has a history of mixing her medications up. She also periodically will go to [facility] and [facility] for medications. Her main pharmacy is [facility]. She said patient also will trade meds with her friend. She said patient has an aide daily that comes to her home to help. She said that patient has a Sin[place]a [place] so she will need to make arrangements to have someone let her dog out. Patient also sees a counselor, Elizabteh at [facility]. Geno would be able to transport patient home at d/c, however she is off at 5p. ELÍAS told her ELÍAS will call her when SW knows more. ELÍAS called [facility]. Patient is active with them. Minerva Hutchins is her Community Coordinator. Patient has a medical alert button. She uses [employer] for transportation. She has an aide from [employer] [facility] [place] Saturday-Saturday 5 hours a day. ELÍAS thanked her for the information. Pastora JOSHI MSW
--- NOTE | 2018-02-20 13:36 | CHAPLAIN ---
unable to visit with patient due to her sleeping and room is dark
--- NOTE | 2018-02-20 13:59 | CASEMGMT ---
SW attempted to talk with patient. However, she talks a little bit and then she falls asleep. SW would wake her up and the same would happen. SW asked her about mixing up her medications and she said she doesn't think she is unless her aide is mixing them up. ELÍAS will follow and notify CM with [facility] of d/c when patient is discharged. Pastora JOSHI MSW
--- NOTE | 2018-02-20 15:31 | CHAPLAIN ---
Type of Pastoral Visit _x__ Initial Visit ___ Follow-up Visit ___ On-call Visit ___ General Patient Visit ___ Spiritual Assessment ___ Family Conference ___ Bereavement ___ Rapid Response ___ Code Blue ___ Other (describe below) Pastoral Care Referral From _x__ Patient ___ Family ___ Nurse ___ Physician ___ Double End Sewer ___ Measurement Operator ___ Other (describe below) Sacrament/Intervention _x__ Active listening ___ Anointing ___ Religious ___ Bereavement ___ Communion ___ Serina exploration ___ ___ Life review _x__ Prayer ___ Reconciliation ___ Sacrament of Sick ___ Supportive presence ___ Wedding ___ Other (describe below) Pastoral Comments patient reports about family division over money/estate issues and how that affects her at this time; pt requested prayer for her needs and family concerns
[2018-02-20 16:26] LABS: Bedside Glucose 111 mg/dL (70-110)
--- NOTE | 2018-02-20 17:48 | PCM.DC ---
- Discharge Diagnoses Current Active Problems: Current Active and Chronic Problems Encephalopathy (Acute) Accident due to mechanical fall without injury (Acute) Anxiety and depression (Acute) Schizophrenia (Chronic) COPD (chronic obstructive pulmonary disease) (Chronic) Tobacco use (Chronic) Morbid obesity (Chronic) Reason(s) for Visit for Discharge Instructions: Metabolic encephalopathy secondary to medications You will use the following diet at home:: Cardiac Your food should be the consistency of: Regular Discharge Activity: Return to Normal Activity, May Not Drive, May not drive while taking narcotic pain medications. May resume sexual activity in: No Restrictions Call your doctor if you observe: Fever of 101 or Higher, Numbness or Tingling, Shortness of breath, Fainting spells, Chest pain, Increased palpitations (irregular heartbeat) Allergies/Adverse Reactions: Allergies sumatriptan [From Imitrex] Adverse Reaction (Verified 02/19/18 15:03) Vomiting sumatriptan succinate [From Imitrex] Adverse Reaction (Verified 02/19/18 15:03) Vomiting BEE STING Allergy (Uncoded 02/19/18 15:03) Anaphylaxis PAPER TAPE Adverse Reaction (Uncoded 02/19/18 15:03) Rash Medications to take at Discharge Ziprasidone HCl [Geodon] 80 mg PO BID 07/11/13 Pravastatin [Pravachol] 80 mg PO QHS 09/07/15 Aspirin [Aspirin, Baby] 81 mg PO DAILY@0800 03/11/16 Topiramate [Topiramate ER] 200 mg PO BID 05/29/16 Haloperidol 20 mg PO TID 05/21/17 Divalproex (ER) [Depakote ER] 250 mg PO BID 12/02/17 Gabapentin [Neurontin] 300 mg PO TID 30 Days #90 cap 12/02/17 Meloxicam 7.5 mg PO DAILY 12/02/17 Morphine Sulfate [Morphine Sulfate ER] 15 mg PO Q6H PRN PRN 12/02/17 Oxycodone HCl/Acetaminophen [Percocet 5-325] 1 tablet PO Q6H PRN PRN 12/02/17 Phenytoin Sodium Extended [Dilantin] 100 mg PO BID 12/02/17 Potassium Chloride 10 meq PO BID 12/02/17 Albuterol Inhaler [Ventolin Hfa] 2 puff INHALATION Q6H PRN PRN 02/20/18 Calcium Carbonate [[id number]-508] 500 mg PO DAILY 02/20/18 Escitalopram Oxalate [Lexapro] 20 mg PO DAILY 02/20/18 Hydroxyzine Pamoate [Vistaril] 100 mg PO TID PRN PRN 02/20/18 Metformin HCl [Glucophage] 500 mg PO BIDCM 02/20/18 Sennosides [Sybil-Tiffanie] 8.6 mg PO BID 02/20/18 Venlafaxine HCl [Venlafaxine HCl ER] 150 mg PO DAILY 02/20/18 Primary Care Physician: Fatoumata Rosen MD [Primary Care Provider] - Please follow up with your Primary Care Physician in: 1-2 weeks Test Results: Test results from this visit will be discussed in further detail at your follow-up appointment, if applicable. Proposed Discharge Date: 02/20/18
--- NOTE | 2018-02-20 17:54 | DCINST_ITS ---
- Discharge Diagnoses Current Active Problems: Current Active and Chronic Problems Encephalopathy (Acute) Accident due to mechanical fall without injury (Acute) Anxiety and depression (Acute) Schizophrenia (Chronic) COPD (chronic obstructive pulmonary disease) (Chronic) Tobacco use (Chronic) Morbid obesity (Chronic) Reason(s) for Visit for Discharge Instructions: Metabolic encephalopathy secondary to medications You will use the following diet at home:: Cardiac Your food should be the consistency of: Regular Discharge Activity: Return to Normal Activity, May Not Drive, May not drive while taking narcotic pain medications. May resume sexual activity in: No Restrictions Call your doctor if you observe: Fever of 101 or Higher, Numbness or Tingling, Shortness of breath, Fainting spells, Chest pain, Increased palpitations (irregular heartbeat) Allergies/Adverse Reactions: Allergies sumatriptan [From Imitrex] Adverse Reaction (Verified 02/19/18 15:03) Vomiting sumatriptan succinate [From Imitrex] Adverse Reaction (Verified 02/19/18 15:03) Vomiting BEE STING Allergy (Uncoded 02/19/18 15:03) Anaphylaxis PAPER TAPE Adverse Reaction (Uncoded 02/19/18 15:03) Rash Medications to take at Discharge Ziprasidone HCl [Geodon] 80 mg PO BID 07/11/13 Pravastatin [Pravachol] 80 mg PO QHS 09/07/15 Aspirin [Aspirin, Baby] 81 mg PO DAILY@0800 03/11/16 Topiramate [Topiramate ER] 200 mg PO BID 05/29/16 Haloperidol 20 mg PO TID 05/21/17 Divalproex (ER) [Depakote ER] 250 mg PO BID 12/02/17 Gabapentin [Neurontin] 300 mg PO TID 30 Days #90 cap 12/02/17 Meloxicam 7.5 mg PO DAILY 12/02/17 Morphine Sulfate [Morphine Sulfate ER] 15 mg PO Q6H PRN PRN 12/02/17 Oxycodone HCl/Acetaminophen [Percocet 5-325] 1 tablet PO Q6H PRN PRN 12/02/17 Phenytoin Sodium Extended [Dilantin] 100 mg PO BID 12/02/17 Potassium Chloride 10 meq PO BID 12/02/17 Albuterol Inhaler [Ventolin Hfa] 2 puff INHALATION Q6H PRN PRN 02/20/18 Calcium Carbonate [[id number]-692] 500 mg PO DAILY 02/20/18 Escitalopram Oxalate [Lexapro] 20 mg PO DAILY 02/20/18 Hydroxyzine Pamoate [Vistaril] 100 mg PO TID PRN PRN 02/20/18 Metformin HCl [Glucophage] 500 mg PO BIDCM 02/20/18 Sennosides [Sybil-Tiffanie] 8.6 mg PO BID 02/20/18 Venlafaxine HCl [Venlafaxine HCl ER] 150 mg PO DAILY 02/20/18 Primary Care Physician: Fatoumata Rosen MD [Primary Care Provider] - Please follow up with your Primary Care Physician in: 1-2 weeks Test Results: Test results from this visit will be discussed in further detail at your follow- up appointment, if applicable. Proposed Discharge Date: 02/20/18
--- NOTE | 2018-02-20 17:56 | PCM.DC.SUM ---
Discharge Date and Diagnosis - Problem List Patient Problems: Active and Suspected Problems Seizure (Acute) Encephalopathy (Acute) Accident due to mechanical fall without injury (Acute) Anxiety and depression (Acute) Date of Admission: 02/19/18 Date of Discharge: 02/20/18 - Primary Discharge Diagnosis Active and Suspected Problems Encephalopathy (Acute) Seizure (Acute) Accident due to mechanical fall without injury (Acute) Anxiety and depression (Acute) - Secondary Discharge Diagnosis Chronic Problems Schizophrenia (Chronic) COPD (chronic obstructive pulmonary disease) (Chronic) Tobacco use (Chronic) Morbid obesity (Chronic) Tobacco user (Chronic) Spondylosis of lumbar region without myelopathy or radiculopathy (Chronic) Diabetes (Chronic) Legal blindness (Chronic) HTN (hypertension) (Chronic) MVP (mitral valve prolapse) (Chronic) Hospital Course and Treatment Imaging Results: STUDY: CT BRAIN WITHOUT CONTRAST REASON FOR EXAM: Female, 62 years old. Fell, hit head. RADIATION DOSAGE (If Supplied By Facility): CTDIvol = ( 44.99 ) mGy, DLP = ( 796.11 ) mGycm TECHNIQUE: Transaxial CT imaging of the brain was performed without administration of intravenous contrast material. Individualized dose optimization techniques were used for this CT. COMPARISON: 05/16/2017. FINDINGS: There is mild left frontal soft tissue swelling. Normal calvarium. Normal size ventricles and extra-axial spaces for the patient's age. Normal white matter tracts of the cerebral hemispheres. Normal basal ganglia and thalami. Normal brainstem. Normal cerebellum. There is no intracranial hemorrhage. There are no findings of an acute ischemic infarction. Normal visualized paranasal sinuses. CT/Brain/Head without Contrast IMPRESSION: Mild soft tissue swelling. No intracranial findings. TUDY: CT CERVICAL SPINE WITHOUT CONTRAST REASON FOR EXAM: Female, 62 years old. Fell, hit head. RADIATION DOSAGE (If Supplied By Facility): CTDIvol = ( 16.38 ) mGy, DLP = ( 326.54 ) mGycm TECHNIQUE: High resolution transaxial imaging was performed without contrast material. Sagittal and coronal images were reconstructed. Individualized dose optimization techniques were used for this CT. COMPARISON: None FINDINGS: Normal craniovertebral junction. Normal anterior atlantoaxial articulation. Normal odontoid process. Normal cervical lordosis. Normal vertebral bodies and posterior osseous elements. C2-3: Normal endplates. Normal disc height and morphology. Normal central canal and intervertebral neuroforamina. C3-4: Normal endplates. Normal disc height and morphology. Normal central canal and intervertebral neuroforamina. C4-5: Normal endplates. Normal disc height and morphology. Normal central canal and intervertebral neuroforamina. There is mild facet hypertrophy, greater on the right. C5-6: Normal endplates. Normal disc height and morphology. Normal central canal and intervertebral neuroforamina. There is mild facet hypertrophy, greater on the right. C6-7: Normal endplates. Normal disc height and morphology. Normal central canal and intervertebral neuroforamina. C7-T1: Normal endplates. Normal disc height and morphology. Normal central canal and intervertebral neuroforamina. Normal visualized soft tissue structures. CT/Spine Cervical without Contras IMPRESSION: 1. No evidence of trauma. 2. Minimal degenerative changes. Electronically Signed: Sonal Bedolla MD at 18:07 EDT Tel , Service support , Operations: None Summary of Care Provided: Patient is a 62-year-old female with known history of migraines, morbid obesity BMI of 40.4, diabetes type 2, hyperlipidemia, tension, tobacco abuse legally blind, history of seizure disorder, chronic low back pain with pain meds, radiculopathy, chronic COPD, seizure disorder, anxiety, depression, schizophrenia, bipolar disorder who presents to the hospital after being evaluated by her therapist and having a fall in the office which CT of the head and neck and head was essentially negative, patient has been a had a known history of mixing medications, or supplementing her medication friends apparently. Patient denies this, patient will follow up with her therapist as an outpatient but will hold some of her sedating medications i.e. ambient and others please see list below. Patient did well had no requirement of further issues. Has gotten up and walk and has been eating. Family contacted and noted that patient has been mistaking her medications and has not been compliant with her psychiatric regimen. She refuses subacute rehab or placement at this time. She wishes to go home, understands that she is not to drive whatsoever. Laboratories phenytoin level 7.5, valproic acid level 60, CT head with mild soft tissue swelling otherwise no acute intracranial findings, CT cervical spine with no evidence of trauma with minimal degenerative changes. (1) Encephalopathy Secondary to mixing of medications most likely and sedating. Hold some of her medications (2) Accident due to mechanical fall without injury These are essentially negative (3) Anxiety and depression Continue home medications and follow-up with psychiatry (4) Schizophrenia Continue home medications (5) COPD (chronic obstructive pulmonary disease) Continue home medications (6) Tobacco use Consult patient to stop tobacco products (7) Spondylosis of lumbar region without myelopathy or radiculopathy On chronic pain medications be aware (8) Diabetes Restart metformin (9) Legal blindness Be aware (10) HTN (hypertension) Continue home medications, when blood pressure improves (11) MVP (mitral valve prolapse) Be aware (12) Morbid obesity Counseled on diet and exercise but will need to be reiterated 13 seizures Continue home medications Disposition patient will go home when able to. She is currently in stable condition Medications reviewed with the patient. Risks, benefits, alternatives, side effects, potential complications and dangers of medications discussed. Patient wishes to utilize these agents despite risk. A signed medical consent/advisement form regarding narcotic medications and a side medication agreement are located in the patient's chart. Chart is dictated with supervisor open hearth [employer]yard software. Errors may occur in dictation that may change providers meaning. This note was generated with [employer] dictation software. It may contain incorrect words, spelling, and punctuation that were not noted in checking the note before signing. Patient Problems: Active and Suspected Problems Seizure (Acute) Encephalopathy (Acute) Accident due to mechanical fall without injury (Acute) Anxiety and depression (Acute) - Physical Exam General: Alert, Oriented x3, Cooperative HEENT: PERRLA, EOMI, - - Old bump on the left temporal noted Oral: Moist Mucosa, No Gingival or Mucosal Lesions/ Ulcerations Neck: Supple, No JVD, Trachea Midline Lungs: Clear to auscultation, Normal air movement, No rhonchi, - - Prolonged expiratory phase Cardiovascular: Regular rate, Normal S1, Normal S2 Abdomen: Bowel Sounds Present, Soft, Non Tender, Non-Distended Extremities: No clubbing, No cyanosis, No edema Skin: No rashes, No breakdown Musculoskeletal: No Tenderness to Palpation of Joints or Extremities - Has chronic back pain however Lymphatic: No Cervical, Supraclavicular, or Inguinal Adenopathy Neurological: Cranial nerves II-XII grossly intact, Neuro grossly intact Psych/Mental Status: Normal Affect, Appropriate, Alert and oriented to time, place, person, mood and affect Vital Signs Temp Pulse Resp BP Pulse Ox 98.6 F 95 18 114/77 96 02/20/18 16:19 02/20/18 16:19 02/20/18 16:19 02/20/18 16:19 02/20/18 16:19 Oxygen Delivery Method Room Air Weight: 100.3 kg Body Mass Index (BMI) 40.4 Finger Stick Blood Glucose 120 Intake and Output for Last 24 Hours 02/18/18 02/19/18 02/20/18 23:59 23:59 23:59 Intake Total 720 / 720 Balance 720 / 720 Laboratory Tests Past 24 Hrs 02/19/18 02/19/18 02/19/18 16:40 16:40 16:40 Hemoglobin A1c 5.2 Magnesium 1.9 Urine Color Urine Clarity Urine pH Ur Specific [place] Urine Protein Urine Glucose (UA) Urine Ketones Urine Occult Blood Urine Nitrite Urine Bilirubin Urine Urobilinogen Ur Leukocyte Esterase Urine RBC Urine WBC Ur Squamous Epith Cells Urine Bacteria Urine Mucus Urine Opiates Screen Urine Methadone Screen Ur Barbiturates Screen Ur Phencyclidine Scrn Ur Amphetamines Screen U Methamphetamin-MDMA U Benzodiazepines Scrn Urine Cocaine Screen U Cannabinoids Screen Ur Drug Screen Comment Ethyl Alcohol 3.0 02/19/18 02/19/18 17:50 17:50 Hemoglobin A1c Magnesium Urine Color Yellow Urine Clarity Sl. Cloudy Urine pH 7.0 Ur Specific [place] 1.010 Urine Protein Negative Urine Glucose (UA) Normal Urine Ketones Negative Urine Occult Blood Negative Urine Nitrite Negative Urine Bilirubin Negative Urine Urobilinogen Normal Ur Leukocyte Esterase 25 H Urine RBC 0 SEEN Urine WBC 0 SEEN Ur Squamous Epith Cells 0-5 SEEN Urine Bacteria 0 SEEN Urine Mucus 0 SEEN Urine Opiates Screen NEGATIVE Urine Methadone Screen NEGATIVE Ur Barbiturates Screen NEGATIVE Ur Phencyclidine Scrn NEGATIVE Ur Amphetamines Screen NEGATIVE U Methamphetamin-MDMA NEGATIVE U Benzodiazepines Scrn NEGATIVE Urine Cocaine Screen NEGATIVE U Cannabinoids Screen NEGATIVE Ur Drug Screen Comment Ethyl Alcohol POC Glucose 02/20/18 02/20/18 02/20/18 16:18 11:51 06:53 POC Glucose 111 H 107 96 02/19/18 23:02 POC Glucose 102 Discharge Diet: No Restrictions - Low-sodium diet 1800 [place] Discharge Activity: Return to Normal Activity, May Not Drive, May not drive while taking narcotic pain medications. May resume sexual activity in: No Restrictions Call your doctor if you observe: Fever of 101 or Higher, Numbness or Tingling, Shortness of breath, Fainting spells, Chest pain, Increased palpitations (irregular heartbeat) Home Medications: Medications to take at Discharge Ziprasidone HCl [Geodon] 80 mg PO BID 07/11/13 Pravastatin [Pravachol] 80 mg PO QHS 09/07/15 Aspirin [Aspirin, Baby] 81 mg PO DAILY@0800 03/11/16 Topiramate [Topiramate ER] 200 mg PO BID 05/29/16 Haloperidol 20 mg PO TID 05/21/17 Divalproex (ER) [Depakote ER] 250 mg PO BID 12/02/17 Gabapentin [Neurontin] 300 mg PO TID 30 Days #90 cap 12/02/17 Meloxicam 7.5 mg PO DAILY 12/02/17 Morphine Sulfate [Morphine Sulfate ER] 15 mg PO Q6H PRN PRN 12/02/17 Oxycodone HCl/Acetaminophen [Percocet 5-325] 1 tablet PO Q6H PRN PRN 12/02/17 Phenytoin Sodium Extended [Dilantin] 100 mg PO BID 12/02/17 Potassium Chloride 10 meq PO BID 12/02/17 Albuterol Inhaler [Ventolin Hfa] 2 puff INHALATION Q6H PRN PRN 02/20/18 Calcium Carbonate [Uucp-Xem-325] 500 mg PO DAILY 02/20/18 Escitalopram Oxalate [Lexapro] 20 mg PO DAILY 02/20/18 Hydroxyzine Pamoate [Vistaril] 100 mg PO TID PRN PRN 02/20/18 Metformin HCl [Glucophage] 500 mg PO BIDCM 02/20/18 Sennosides [Sybil-Tiffanie] 8.6 mg PO BID 02/20/18 Venlafaxine HCl [Venlafaxine HCl ER] 150 mg PO DAILY 02/20/18 Primary Care Physician: Fatoumata Rosen MD [Primary Care Provider] - Please follow up with your Primary Care Physician in: 1-2 weeks Disposition: Home Patient Condition:: Fair Medical Necessity - Tobacco Use Smoking Status: Current every day smoker - 1 pack/day cigarette tobacco usage. Tobacco Use: Cigarettes Meaningful Use Info Meaningful Use Diagnoses (Choose all that apply): None applicable Code Visit Inpatient E&M: 03843 Disch Hosp
--- NOTE | 2018-02-20 18:05 | DS.PCM_ITS ---
Discharge Date and Diagnosis - Problem List Patient Problems: Active and Suspected Problems Seizure (Acute) Encephalopathy (Acute) Accident due to mechanical fall without injury (Acute) Anxiety and depression (Acute) Date of Admission: 02/19/18 Date of Discharge: 02/20/18 - Primary Discharge Diagnosis Active and Suspected Problems Encephalopathy (Acute) Seizure (Acute) Accident due to mechanical fall without injury (Acute) Anxiety and depression (Acute) - Secondary Discharge Diagnosis Chronic Problems Schizophrenia (Chronic) COPD (chronic obstructive pulmonary disease) (Chronic) Tobacco use (Chronic) Morbid obesity (Chronic) Tobacco user (Chronic) Spondylosis of lumbar region without myelopathy or radiculopathy (Chronic) Diabetes (Chronic) Legal blindness (Chronic) HTN (hypertension) (Chronic) MVP (mitral valve prolapse) (Chronic) Hospital Course and Treatment Imaging Results: STUDY: CT BRAIN WITHOUT CONTRAST REASON FOR EXAM: Female, 62 years old. Fell, hit head. RADIATION DOSAGE (If Supplied By Facility): CTDIvol = ( 44.99 ) mGy, DLP = ( 796.11 ) mGycm TECHNIQUE: Transaxial CT imaging of the brain was performed without administration of intravenous contrast material. Individualized dose optimization techniques were used for this CT. COMPARISON: 05/16/2017. FINDINGS: There is mild left frontal soft tissue swelling. Normal calvarium. Normal size ventricles and extra-axial spaces for the patient's age. Normal white matter tracts of the cerebral hemispheres. Normal basal ganglia and thalami. Normal brainstem. Normal cerebellum. There is no intracranial hemorrhage. There are no findings of an acute ischemic infarction. Normal visualized paranasal sinuses. CT/Brain/Head without Contrast IMPRESSION: Mild soft tissue swelling. No intracranial findings. TUDY: CT CERVICAL SPINE WITHOUT CONTRAST REASON FOR EXAM: Female, 62 years old. Fell, hit head. RADIATION DOSAGE (If Supplied By Facility): CTDIvol = ( 16.38 ) mGy, DLP = ( 326.54 ) mGycm TECHNIQUE: High resolution transaxial imaging was performed without contrast material. Sagittal and coronal images were reconstructed. Individualized dose optimization techniques were used for this CT. COMPARISON: None FINDINGS: Normal craniovertebral junction. Normal anterior atlantoaxial articulation. Normal odontoid process. Normal cervical lordosis. Normal vertebral bodies and posterior osseous elements. C2-3: Normal endplates. Normal disc height and morphology. Normal central canal and intervertebral neuroforamina. C3-4: Normal endplates. Normal disc height and morphology. Normal central canal and intervertebral neuroforamina. C4-5: Normal endplates. Normal disc height and morphology. Normal central canal and intervertebral neuroforamina. There is mild facet hypertrophy, greater on the right. C5-6: Normal endplates. Normal disc height and morphology. Normal central canal and intervertebral neuroforamina. There is mild facet hypertrophy, greater on the right. C6-7: Normal endplates. Normal disc height and morphology. Normal central canal and intervertebral neuroforamina. C7-T1: Normal endplates. Normal disc height and morphology. Normal central canal and intervertebral neuroforamina. Normal visualized soft tissue structures. CT/Spine Cervical without Contras IMPRESSION: 1. No evidence of trauma. 2. Minimal degenerative changes. Electronically Signed: Sonal Bedolla MD at 18:07 EDT Tel , Service support , Operations: None Summary of Care Provided: Patient is a 62-year-old female with known history of migraines, morbid obesity BMI of 40.4, diabetes type 2, hyperlipidemia, tension, tobacco abuse legally blind, history of seizure disorder, chronic low back pain with pain meds, radiculopathy, chronic COPD, seizure disorder, anxiety, depression, schizophrenia, bipolar disorder who presents to the hospital after being evaluated by her therapist and having a fall in the office which CT of the head and neck and head was essentially negative, patient has been a had a known hist ory of mixing medications, or supplementing her medication friends apparently. Patient denies this, patient will follow up with her therapist as an outpatient but will hold some of her sedating medications i.e. ambient and others please see list below. Patient did well had no requirement of further issues. Has gotten up and walk and has been eating. Family contacted and noted that patient has been mistaking her medications and has not been compliant with her psychiatric regimen. She refuses subacute rehab or placement at this time. She wishes to go home, understands that she is not to drive whatsoever. Laboratories phenytoin level 7.5, valproic acid level 60, CT head with mild soft tissue swelling otherwise no acute intracranial findings, CT cervical spine with no evidence of trauma with minimal degenerative changes. (1) Encephalopathy Secondary to mixing of medications most likely and sedating. Hold some of her medications (2) Accident due to mechanical fall without injury These are essentially negative (3) Anxiety and depression Continue home medications and follow-up with psychiatry (4) Schizophrenia Continue home medications (5) COPD (chronic obstructive pulmonary disease) Continue home medications (6) Tobacco use Consult patient to stop tobacco products (7) Spondylosis of lumbar region without myelopathy or radiculopathy On chronic pain medications be aware (8) Diabetes Restart metformin (9) Legal blindness Be aware (10) HTN (hypertension) Continue home medications, when blood pressure improves (11) MVP (mitral valve prolapse) Be aware (12) Morbid obesity Counseled on diet and exercise but will need to be reiterated 13 seizures Continue home medications Disposition patient will go home when able to. She is currently in stable condition Medications reviewed with the patient. Risks, benefits, alternatives, side effects, potential complications and dangers of medications discussed. Patient wishes to utilize these agents despite risk. A signed medical consent/advisement form regarding narcotic medications and a side medication agreement are located in the patient's chart. Chart is dictated with seam presser software. Errors may occur in dictation that may change providers meaning. This note was generated with [employer] [place] dictation software. It may contain incorrect words, spelling, and punctuation that were no t noted in checking the note before signing. Patient Problems: Active and Suspected Problems Seizure (Acute) Encephalopathy (Acute) Accident due to mechanical fall without injury (Acute) Anxiety and depression (Acute) - Physical Exam General: Alert, Oriented x3, Cooperative HEENT: PERRLA, EOMI, - - Old bump on the left temporal noted Oral: Moist Mucosa, No Gingival or Mucosal Lesions/ Ulcerations Neck: Supple, No JVD, Trachea Midline Lungs: Clear to auscultation, Normal air movement, No rhonchi, - - Prolonged expiratory phase Cardiovascular: Regular rate, Normal S1, Normal S2 Abdomen: Bowel Sounds Present, Soft, Non Tender, Non-Distended Extremities: No clubbing, No cyanosis, No edema Skin: No rashes, No breakdown Musculoskeletal: No Tenderness to Palpation of Joints or Extremities - Has chronic back pain however Lymphatic: No Cervical, Supraclavicular, or Inguinal Adenopathy Neurological: Cranial nerves II-XII grossly intact, Neuro grossly intact Psych/Mental Status: Normal Affect, Appropriate, Alert and oriented to time, place, person, mood and affect Vital Signs Temp Pulse Resp BP Pulse Ox 98.6 F 95 18 114/77 96 02/20/18 16:19 02/20/18 16:19 02/20/18 16:19 02/20/18 16:19 02/20/18 16:19 Oxygen Delivery Method Room Air Weight: 100.3 kg Body Mass Index (BMI) 40.4 Finger Stick Blood Glucose 120 Intake and Output for Last 24 Hours 02/18/18 02/19/18 02/20/18 23:59 23:59 23:59 Intake Total 720 / 720 Balance 720 / 720 Laboratory Tests Past 24 Hrs 02/19/18 02/19/18 02/19/18 16:40 16:40 16:40 Hemoglobin A1c 5.2 Magnesium 1.9 Urine Color Urine Clarity Urine pH Ur Specific [place] Urine Protein Urine Glucose (UA) Urine Ketones Urine Occult Blood Urine Nitrite Urine Bilirubin Urine Urobilinogen Ur Leukocyte Esterase Urine RBC Urine WBC Ur Squamous Epith Cells Urine Bacteria Urine Mucus Urine Opiates Screen Urine Methadone Screen Ur Barbiturates Screen Ur Phencyclidine Scrn Ur Amphetamines Screen U Methamphetamin-MDMA U Benzodiazepines Scrn Urine Cocaine Screen U Cannabinoids Screen Ur Drug Screen Comment Ethyl Alcohol 3.0 02/19/18 02/19/18 17:50 17:50 Hemoglobin A1c Magnesium Urine Color Yellow Urine Clarity Sl. Cloudy Urine pH 7.0 Ur Specific [place] 1.010 Urine Protein Negative Urine Glucose (UA) Normal Urine Ketones Negative Urine Occult Blood Negative Urine Nitrite Negative Urine Bilirubin Negative Urine Urobilinogen Normal Ur Leukocyte Esterase 25 H Urine RBC 0 SEEN Urine WBC 0 SEEN Ur Squamous Epith Cells 0-5 SEEN Urine Bacteria 0 SEEN Urine Mucus 0 SEEN Urine Opiates Screen NEGATIVE Urine Methadone Screen NEGATIVE Ur Barbiturates Screen NEGATIVE Ur Phencyclidine Scrn NEGATIVE Ur Amphetamines Screen NEGATIVE U Methamphetamin-MDMA NEGATIVE U Benzodiazepines Scrn NEGATIVE Urine Cocaine Screen NEGATIVE U Cannabinoids Screen NEGATIVE Ur Drug Screen Comment Ethyl Alcohol POC Glucose 02/20/18 02/20/18 02/20/18 16:18 11:51 06:53 POC Glucose 111 H 107 96 02/19/18 23:02 POC Glucose 102 Discharge Diet: No Restrictions - Low-sodium diet 1800 [place] Discharge Activity: Return to Normal Activity, May Not Drive, May not drive while taking narcotic pain medications. May resume sexual activity in: No Restrictions Call your doctor if you observe: Fever of 101 or Higher, Numbness or Tingling, Shortness of breath, Fainting spells, Chest pain, Increased palpitations (irregular heartbeat) Home Medications: Medications to take at Discharge Ziprasidone HCl [Geodon] 80 mg PO BID 07/11/13 Pravastatin [Pravachol] 80 mg PO QHS 09/07/15 Aspirin [Aspirin, Baby] 81 mg PO DAILY@0800 03/11/16 Topiramate [Topiramate ER] 200 mg PO BID 05/29/16 Haloperidol 20 mg PO TID 05/21/17 Divalproex (ER) [Depakote ER] 250 mg PO BID 12/02/17 Gabapentin [Neurontin] 300 mg PO TID 30 Days #90 cap 12/02/17 Meloxicam 7.5 mg PO DAILY 12/02/17 Morphine Sulfate [Morphine Sulfate ER] 15 mg PO Q6H PRN PRN 12/02/17 Oxycodone HCl/Acetaminophen [Percocet 5-325] 1 tablet PO Q6H PRN PRN 12/02/17 Phenytoin Sodium Extended [Dilantin] 100 mg PO BID 12/02/17 Potassium Chloride 10 meq PO BID 12/02/17 Albuterol Inhaler [Ventolin Hfa] 2 puff INHALATION Q6H PRN PRN 02/20/18 Calcium Carbonate [[id number]] 500 mg PO DAILY 02/20/18 Escitalopram Oxalate [Lexapro] 20 mg PO DAILY 02/20/18 Hydroxyzine Pamoate [Vistaril] 100 mg PO TID PRN PRN 02/20/18 Metformin HCl [Glucophage] 500 mg PO BIDCM 02/20/18 Sennosides [Sybil-Tiffanie] 8.6 mg PO BID 02/20/18 Venlafaxine HCl [Venlafaxine HCl ER] 150 mg PO DAILY 02/20/18 Primary Care Physician: Fatoumata Rosen MD [Primary Care Provider] - Please follow up with your Primary Care Physician in: 1-2 weeks Disposition: Home Patient Condition:: Fair Medical Necessity - Tobacco Use Smoking Status: Current every day smoker - 1 pack/day cigarette tobacco usage. Tobacco Use: Cigarettes Meaningful Use Info Meaningful Use Diagnoses (Choose all that apply): None applicable Code Visit Inpatient E&M: 29683 Disch Hosp
--- NOTE | 2018-02-21 09:13 | CASEMGMT ---
Patient was discharged yesterday evening. ELÍAS called Minerva Hutchins, patient's Technology Strategist with [facility]. ELÍAS left her a vm letting her know patient was discharged last night. ELÍAS also let her know that patient was in hospital for confusion due to medication mix up. ELÍAS also let her know that per her Technology Strategist with [facility] this is a re-occurring issue. She was getting her meds pre-packaged, but she recently switched back to bottles. It would be beneficial if she would go back to pre-packaged meds. ELÍAS also called patient's upper caser, Geno and she took patient home yesterday. ELÍAS told her that ELÍAS did leave a message for her upper caser with [facility] regarding this medication issue. Pastora JOSHI MSW
== END 2018-02-20 17:55 | disposition home or self-care (01) ==
LOC: ED 18:03 → PCU 19:53
PROVIDERS: Admitting Provider Family Medicine; Emergency Provider Emergency Medicine; Family Provider Internal Medicine; PCP Internal Medicine; Visit Provider Internal Medicine
DX: G93.40 Encephalopathy, unspecified (principal); F20.9 Schizophrenia, unspecified; Z79.899 Other long term (current) drug therapy; Z79.82 Long term (current) use of aspirin; F41.9 Anxiety disorder, unspecified; F32.9 Major depressive disorder, single episode, unspecified; E11.9 Type 2 diabetes mellitus without complications; Z79.84 Long term (current) use of oral hypoglycemic drugs; I10 Essential (primary) hypertension; H54.8 Legal blindness, as defined in USA; E66.01 Morbid (severe) obesity due to excess calories; Z68.41 Body mass index [BMI] 40.0-44.9, adult; Z71.3 Dietary counseling and surveillance; E78.5 Hyperlipidemia, unspecified; G43.909 Migraine, unspecified, not intractable, without status migrainosus; G40.909 Epilepsy, unspecified, not intractable, without status epilepticus; G89.29 Other chronic pain; Z91.14 Patient's other noncompliance with medication regimen; Z91.81 History of falling; M47.816 Spondylosis without myelopathy or radiculopathy, lumbar region
CPT/HCPCS: 70450; 72125; 80048; 80164; 80185; 80307; 80320; 81001; 82962; 83036; 83735; 85025; 93005; 96372; 99218; 99284; A4216; G0378; G0480

== ENCOUNTER 2018-03-17 08:55 | Emergency (ER) | payer MEDICARE, MEDICAID, SELFPAY ==
[2018-03-17 08:56] VITALS: BP 114/70; PULSE 79; RESP 14; TEMP 36.6; O2SAT 96; BMI 40.8
--- NOTE | 2018-03-17 09:03 | RAD_ITS ---
STUDY: X-RAY - RIGHT ELBOW REASON FOR EXAM: Female, 62 years old. History of fall. Pain. TECHNIQUE: 2 view(s) of the elbow. COMPARISON: None. FINDINGS: Normal visualized humerus, radius and ulna. Normal radiocapitellar and ulnotrochlear articulations. The soft tissue structures are unremarkable. RAD/Elbow 2 Views IMPRESSION: Normal x-ray examination of the elbow. Electronically Signed: Raoul Cobian MD at 9:37 EST Tel [phone], Service support ,
--- NOTE | 2018-03-17 09:03 | RAD_ITS ---
STUDY: X-RAY - RIGHT WRIST REASON FOR EXAM: Female, 62 years old. Pain and deformity following a fall. TECHNIQUE: 2 view(s) of the wrist were obtained. COMPARISON: None. FINDINGS: Is evidence of a comminuted nondisplaced fracture of the distal radial metaphysis with dorsal facing. Avulsion fracture of the ulnar styloid. Normal radiocarpal articulation. Normal distal radioulnar articulation. Normal carpal bones. Normal carpal articulations. Normal carpometacarpal articulation of the thumb. Normal second through fifth carpometacarpal articulations. Normal visualized metacarpal bones. Soft tissue swelling. RAD/Wrist 2 Views IMPRESSION: Comminuted nondisplaced fracture of the distal radial metaphysis with dorsal angulation. Avulsion fracture of the ulnar styloid. Soft tissue swelling. Electronically Signed: Raoul Cobian MD at 9:36 EST Tel [phone], Service support ,
--- NOTE | 2018-03-17 09:06 | ED.VISSUMM ---
- ER Visit Summary Date of Service: 03/17/18 Chief Complaint: Fall, wrist injury History of Present Illness: The patient is a 62 F who is legally blind and ambulates with cane presents after mechanical fall. Patient states she was walking in her house. She was not using her cane. She states that she tripped over her own feet. She fell forward and caught herself on an outstretched right wrist. She did not strike her head. She denies loss of consciousness. She is complaining of pain in the right wrist and the right elbow. The patient does not take anticoagulants. She was recently hospitalized for encephalopathy secondary to excessive medication use. She states she is been in her normal state of health otherwise. Physical Examination: Vital signs reviewed General: Well-nourished, well-developed Head: Normocephalic, atraumatic Eyes: Pupils equal and reactive, extraocular muscles intact Neck, supple, no lymphadenopathy Heart: Regular rate and rhythm Respiratory: No distress, clear bilaterally Abdomen: Soft, nontender, nondistended, no peritoneal signs Back: Nontender Extremities: Tenderness over the dorsum of the right wrist, 2+ pulses, obvious deformity, neurologically intact, no edema, no cords Skin: Normal color no rash Neuro: Alert and oriented, no focal or lateralizing deficits Test Results: [] Emergency Department Course and Treatment: The patient did not hit her head or lose consciousness. I did obtain plain films of the wrist and the elbow. Elbow films were unremarkable. Wrist does show a dorsally displaced distal radius fracture. I discussed the patient with Dr. Griffiths. I did do a hematoma block with lidocaine. I did attempt to reduce the fracture, but was unable to get it fully reduced. The patient was placed in a splint. She was more comfortable in the splint. I do feel that this patient's can require surgical fixation. She was more comfortable and does have intra-articular extension, I did not feel that trying the reduction would be of benefit at this time. The patient will be discharged to follow-up with orthopedics. Treatment Plan: [] Disposition: Discharge Impression: Distal radius fracture This note was generated with [employer] dictation software. It may contain incorrect words, spelling, and punctuation that were not noted in review of the chart prior to signing ED Disposition - Plan for ED Patient: Chief Complaint: Fall Instructions: ED Fx Colles Wrist Redu Requ Referrals: Trent Griffiths DO [STAFF PHYSICIAN] -
[2018-03-17] MEDS: HYDROcodone Bitartrate/Apap 5/325 Tablet PO ×2 (09:11→11:19)
--- NOTE | 2018-03-17 10:30 | RAD_ITS ---
STUDY: X-RAY - RIGHT WRIST REASON FOR EXAM: Female, 62 years old. Post reduction examination. TECHNIQUE: 2 view(s) of the wrist were obtained. COMPARISON: Comparison is made with prior study done earlier today. FINDINGS: Comminuted fracture of the distal radial metaphysis. Residual dorsal facing. Avulsion fracture of the ulnar styloid. Normal radiocarpal articulation. Normal distal radioulnar articulation. Normal carpal bones. Normal carpal articulations. Normal carpometacarpal articulation of the thumb. Normal second through fifth carpometacarpal articulations. Normal visualized metacarpal bones. Soft tissue swelling. RAD/Wrist 2 Views IMPRESSION: Residual dorsal facing of the radial carpal joint. Electronically Signed: Raoul Cobian MD at 10:54 EST Tel [phone], Service support ,
[2018-03-17 11:25] VITALS: BP 114/76; PULSE 72; RESP 16; O2SAT 96
== END 2018-03-17 11:27 | disposition home or self-care (01) ==
LOC: ED 11:12
PROVIDERS: Emergency Provider Emergency Medicine; Family Provider Internal Medicine; PCP Internal Medicine
DX: S52.591A Other fractures of lower end of right radius, initial encounter for closed fracture (principal); S52.611A Displaced fracture of right ulna styloid process, initial encounter for closed fracture; W18.09XA Striking against other object with subsequent fall, initial encounter; Y93.01 Activity, walking, marching and hiking; Y92.009 Unspecified place in unspecified non-institutional (private) residence as the place of occurrence of the external cause; H54.8 Legal blindness, as defined in USA; E11.9 Type 2 diabetes mellitus without complications; G40.909 Epilepsy, unspecified, not intractable, without status epilepticus; F20.9 Schizophrenia, unspecified; Z79.82 Long term (current) use of aspirin; Z79.84 Long term (current) use of oral hypoglycemic drugs; Z79.899 Other long term (current) drug therapy
CPT/HCPCS: 29125; 73070; 73100; 99285

== ENCOUNTER 2018-03-27 05:47 | Day surgery (SDC) | payer MEDICARE, MEDICAID, SELFPAY ==
[2018-03-27 06:10] VITALS: BP 112/70; PULSE 78; RESP 14; TEMP 37.7; O2SAT 95; BMI 40.4
--- NOTE | 2018-03-27 07:15 | RAD_ITS ---
STUDY: X-RAY - RIGHT WRIST REASON FOR EXAM: Female, 62 years old. Close reduction of the distal radial fracture. TECHNIQUE: 2 intraoperative view(s) of the wrist were obtained. COMPARISON: None. FINDINGS: There is neutral facing of the distal radius. Satisfactory alignment. RAD/Wrist min 3 Views IMPRESSION: Satisfactory alignment of the distal radial fracture. Electronically Signed: Raoul Cobian MD at 8:59 EST Tel [phone], Service support ,
[2018-03-27] MEDS: Cefazolin 2 GM in 0.9% Normal Saline 100 ML IV (07:25)
--- NOTE | 2018-03-27 08:00 | PCM.IMDPSTOP ---
Immediate Post-Op Note Date of Procedure: 03/27/18 Primary Surgeon/Physician: Trent Griffiths diversity intern: none Pre-Operative Diagnosis: Displaced right distal radius and ulna fx Post-Operative Diagnosis: same Surgery/Procedure Performed:: Closed reduction/casting RUE Description of Surgical Findings:: see op note Estimated Blood Loss: 0 Specimen's removed: none Type of Anesthesia:: General ASA Class: ASA3 Severe Disease - Admit VTE Documentation VTE Present on Admission: No VTE Mechan Device Prophylaxis: SCD's VTE Pharm Prophylaxis ordered?: No Reason prophylaxis not ordered:: Treatment Not Indicated
[2018-03-27 08:16] VITALS: BP 112/70; BP 86/73; PULSE 90; RESP 16; TEMP 36.9; O2SAT 94
[2018-03-27 08:31] VITALS: BP 109/71; BP 112/70; PULSE 87; RESP 18; TEMP 36.5; O2SAT 95
[2018-03-27] MEDS: HYDROcodone Bitartrate/Apap 5/325 Tablet PO (08:46)
[2018-03-27 09:15] VITALS: BP 112/70
--- OUTSIDE RECORDS SUMMARY | 2018-05-22 06:05 | XMS RPT_ITS ---
:1955 Author Organization OHIP Support Name Relationship Address Phone D Unavailable Unavailable Unavailable VIPPERMAN, KAPIL Unavailable [address] + [address] [place] [address] D Unavailable Unavailable Unavailable VIPPERMAN, KAPIL Unavailable [address] + [address] [place] [address] D Unavailable Unavailable Unavailable VIPPERMAN, KAPIL Unavailable [address] + [address] [place] [address] D Unavailable Unavailable Unavailable VIPPERMAN, KAPIL Unavailable [address] + [address] [place] [address] D Unavailable Unavailable Unavailable VIPPERMAN, KAPIL Unavailable [address] + [address] [place] [address] D Unavailable Unavailable Unavailable VIPPERMAN, KAPIL Unavailable [address] + [address] [place] [address] D Unavailable Unavailable Unavailable VIPPERMAN, KAPIL Unavailable [address] [place] [address] NOT GIVEN Unavailable Unavailable Unavailable VIPPERMAN, FRANK Unavailable [address] + [place] [address] D Unavailable Unavailable Unavailable VIPPERMAN, KAPIL Unavailable [address] [place] [address] D Unavailable Unavailable Unavailable VIPPERMAN, KAPIL Unavailable [address] [place] [address] NOT GIVEN Unavailable Unavailable Unavailable VIPPERMAN, FRANK Unavailable [address] + [place] [address] NOT GIVEN Unavailable Unavailable Unavailable VIPPERMAN, FRANK Unavailable [address] + [place] [address] NOT GIVEN Unavailable Unavailable Unavailable VIPPERMAN, FRANK Unavailable [address] + [place] [address] D Unavailable Unavailable Unavailable VIPPERMAN, KAPIL Unavailable [address] + [place] [address] D Unavailable Unavailable Unavailable VIPPERMAN, KAPIL Unavailable [address] + [place] [address] D Unavailable Unavailable Unavailable VIPPERMAN, KAPIL Unavailable [address] + [place] [address] D Unavailable Unavailable Unavailable VIPPERMAN, KAPIL Unavailable [address] + [place] [address] D Unavailable Unavailable Unavailable VIPPERMAN, KAPIL Unavailable [address] + [place] [address] D Unavailable Unavailable Unavailable VIPPERMAN, KAPIL Unavailable [address] + [place] [address] D Unavailable Unavailable Unavailable VIPPERMAN, KAPIL Unavailable [address] + [place] [address] D Unavailable Unavailable Unavailable VIPPERMAN, KAPIL Unavailable [address] + [place] [address] D Unavailable Unavailable Unavailable VIPPERMAN, KAPIL Unavailable [address] [place] [address] D Unavailable Unavailable Unavailable VIPPERMAN, KAPIL Unavailable [address] + [place] [address] D Unavailable Unavailable Unavailable VIPPERMAN, KAPIL Unavailable [address] + [place] [address] Care Team Providers Name Role Phone WALLACE FAIR Referring Unavailable WALLACE FAIR Referring Unavailable ANGIE STEPHENS ([facility]) Attending Unavailable ANGIE STEPHENS ([place]) Attending Unavailable SALINAS VIGIL Attending Unavailable CORNIELLO, ANGIE Lala ([facility]) Attending Unavailable CORNIELLO, ANGIE L ([facility]) Referring Unavailable GANTA, ESTEBAN Attending Unavailable GANTA, ESTEBAN Referring Unavailable GANTA, ESTEBAN Referring Unavailable GANTA, ESTEBAN Referring Unavailable GANTA, ESTEBAN Referring Unavailable YOUNG SUH ([facility]) Attending Unavailable TESTRASALINAS BOYD Attending Unavailable FAIR, WALLACE L Referring Unavailable TESTRASALINAS BOYD Attending Unavailable GANTA, ESTEBAN Referring Unavailable YOUNG SUH ([facility]) Attending Unavailable YOUNG SUH ([facility]) Referring Unavailable YOUNG SUH ([facility]) Referring Unavailable ANTUNEZ, DR DARWIN Ritter Admitting Unavailable ANTUNEZ, DR DARWIN Ritter Attending Unavailable TULIO, DR DARWIN Ritter Primary Care Unavailable FAIR, WALLACE Consulting Unavailable PROVIDER, UNKNOWN Consulting Unavailable SERA, DR ARYAN Mayo Admitting Unavailable SERA, DR ARYAN Mayo Attending Unavailable SERA, DR ARYAN Mayo Primary Care Unavailable FAIR, WALLACE DO Consulting Unavailable FAIR, WALLACE DO Referring Unavailable PROVIDER, UNKNOWN Consulting Unavailable CL CASTILLO MD Admitting Unavailable CL CASTILLO MD Attending Unavailable FAIR, WALLACE DO Referring Unavailable CL CASTILLO MD Primary Care Unavailable FAIR, WALLACE Consulting Unavailable PROVIDER, UNKNOWN Consulting Unavailable ALLYSON JOEL DO Admitting Unavailable ALLYSON JOEL DO Attending Unavailable ALLYSON JOEL DO Primary Care Unavailable GANTA, ESTEBAN SENDY Referring Unavailable GANTA, ESTEBAN SENDY Consulting Unavailable PROVIDER, UNKNOWN Consulting Unavailable Csasidy Mccain Attending Unavailable Fair, Wallace Primary Care Unavailable Lisa Galvin Attending Unavailable Fair, Wallace Primary Care Unavailable Leta, Sameh Attending Unavailable Fair, Wallace Primary Care Unavailable Leta, Sameh Referring Unavailable Fair, Wallace Primary Care Unavailable iVviane Mai Attending Unavailable Fair, Wallace Primary Care Unavailable Andrea, Fabrizio Admitting Unavailable TerGrant wu Attending Unavailable Andrea, Fabrizio Admitting Unavailable Nesha Grant Attending Unavailable Fair, Wallace Primary Care Unavailable Rebekaky Grant Consulting Unavailable Andrea, Fabrizio Attending Unavailable Dipika Stephensanda CERTIFIED COURT INTERPRETER-C Attending Unavailable Fair, Wallace Primary Care Unavailable Andrzej Asencio Attending Unavailable Andrea, Fabrizio Referring Unavailable Leta, Sameh Attending Unavailable Fair, Wallace Primary Care Unavailable Cassidy Mccain Attending Unavailable Fair, Wallace Primary Care Unavailable GALILEO MACIAS Referring Unavailable Marv, Wallace Primary Care Unavailable GALILEO MACIAS Attending Unavailable Wallace Fair Primary Care Unavailable Mohinder Friend Attending Unavailable Trent Lowe Attending Unavailable Ganta, Esteban Primary Care Unavailable Leta, Sameh Attending Unavailable Leta, Sameh Referring Unavailable Ganta, Esteban Primary Care Unavailable Ganta, Esteban Primary Care Unavailable White, Anita Admitting Unavailable Mohinder Sebastian Attending Unavailable White, Anita Admitting Unavailable White, Anita Attending Unavailable Ganta, Esteban Primary Care Unavailable White, Antia Consulting Unavailable White, Anita Admitting Unavailable Romulo, Mohinder Attending Unavailable Ganta, Esteban Primary Care Unavailable Mohinder Sebastian Consulting Unavailable Ganta, Esteban Primary Care Unavailable Trent Lowe Attending Unavailable Ternt Griffiths Attending Unavailable Trent Griffiths Referring Unavailable Ganta, Esteban Primary Care Unavailable PROBLEMS PROBLEMS DATE TYPE CONDITION / CODE ATTENDING STATUS SOURCE 03/19/2018 Active Encounter for other NA Active [place] [facility] Main examination / [place] Z01.818(ICD-10) Repository 02/08/2018 Unknown F11.20 - Opioid [facility] Active [facility] dependence, Community uncomplicated / Hospital F11.20(ICD-10) Repository 02/08/2018 Unknown M25.552 - Pain in [facility] Active [facility] left hip / Community M25.552(ICD-10) Hospital Repository 01/29/2018 Active 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 therapy / [place] Z79.899(ICD-10) Repository 01/29/2018 Active Hypokalemia / NA Active [place] E87.6(ICD-10) Clinic Main [place] Repository 01/22/2018 Active Unknown / [place]RAKE, Active [place] UNK(Unknown) [facility] Main [place] Repository 12/20/2017 Unknown R56.9 - Unspecified GALILEO MACIAS Active [facility] convulsions / Community R56.9(ICD-10) Hospital Repository 08/18/2013 Active Hyperlipidemia, NA Active [place] unspecified / Clinic Main E78.5(ICD-10) [place] Repository 10/21/2017 Active Essential (primary) NA Active [place] hypertension / Clinic Main I10(ICD-10) [place] Repository 04/16/2016 Active Other disorders of NA Active [facility] lung / Clinic Main J98.4(ICD-10) [place] Repository 09/13/2017 Active Vitamin D NA Active [facility] deficiency, Clinic Main unspecified / [place] E55.9(ICD-10) Repository 09/12/2017 Admitting Dizziness and ANTUNEZ, DR DARWIN Ritter Active [facility] Diagnosis giddiness / [facility] R42(ICD-10) Hospital Repository 09/12/2017 Principle Epilepsy, ANTUNEZ, DR DARWIN Ritter Active [facility] Diagnosis unspecified, not [facility] intractable, Hospital without status Repository epilepticus / J37656(ICD-10) 09/12/2017 Secondary Pain in left knee / ANTUNEZ, DR DARWIN Ritter Active [facility] Diagnosis V28519(ICD-10) [facility] Hospital Repository 09/12/2017 Secondary Pain in right ANTUNEZ, DR DARWIN Ritter Active [facility] Diagnosis shoulder / [facility] O49010(ICD-10) Hospital Repository 09/12/2017 Secondary Fall from bed, ANTUNEZ, DR DARWIN Ritter Active [facility] Diagnosis initial encounter / [facility] U74GHWR(ICD-10) Hospital Repository 09/12/2017 Secondary Walked into ANTUNEZ, DR DARWIN Ritter Active [facility] Diagnosis furniture, initial [facility] encounter / Hospital Y4547IL(ICD-10) Repository 09/12/2017 Secondary Chronic obstructive ANTUNEZ, DR DARWIN Ritter Active [facility] Diagnosis pulmonary disease, [facility] unspecified / Hospital J449(ICD-10) Repository 09/12/2017 Secondary Nicotine ANTUNEZ, DR DARWIN Ritter Active [facility] Diagnosis dependence, [facility], Hospital uncomplicated / Repository X79394(ICD-10) 09/12/2017 Secondary Allergy status to ANTUNEZ, DR DARWIN Ritter Active [facility] Diagnosis other drugs, [facility] medicaments and Hospital biological Repository substances status / Z888(ICD-10) 09/12/2017 Secondary Bee allergy status ANTUNEZ, DR DARWIN Ritter Active [facility] Diagnosis / W94363(ICD-10) [facility] Hospital Repository 08/22/2017 Active Hypotension, NA Active [facility] unspecified / Clinic Main I95.9(ICD-10) [place] Repository 08/19/2017 Unknown Z12.31 - Encounter Cassidy Mccain Active [facility] for screening Community mammogram for Hospital malignant neoplasm Repository of breast / Z12.31(ICD-10) 06/28/2017 Unknown G47.33 - Corniello, Active [facility] Obstructive sleep Angie CERTIFIED COURT INTERPRETER-C [facility] apnea (adult) Hospital (pediatric) / Repository G47.33(ICD-10) 07/24/2017 Unknown R07.9 - Chest pain, Tereletsky, Active [facility] unspecified / [facility] R07.9(ICD-10) Hospital Repository 01/21/2018 Unknown S09.90XA - Jwayyed, Active [facility] Unspecified injury [facility] of head, initial Hospital encounter / Repository S09.90XA(ICD-10) 05/14/2017 Active Type 2 diabetes NA Active [facility] mellitus without Clinic Main complications / [place] E11.9(ICD-10) Repository 08/06/2017 Unknown M47.27 - Other Leta, Blake Active [facility] spondylosis with [facility] radiculopathy, [facility] lumbosacral region Repository / M47.27(ICD-10) 05/30/2017 Unknown 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 Imaging Services [address] [place] [address] Wrist min 3 Views MR#: [id number] Acct: [id number] Name: AFSANEH LOWE Rep #: [id number] : 1955 F 62 From: Raoul Cobian MD PCP: Esteban Phelps MD Status: [facility] [place] Study: Wrist min 3 Views Date of Exam: 03/27/18 Exam# [id number] Ordering Dr: Trent Griffiths DO STUDY: X-RAY - RIGHT WRIST REASON FOR EXAM: Female, 62 years old. Close reduction of the distal radial fracture. TECHNIQUE: 2 intraoperative view(s) of the wrist were obtained. COMPARISON: None. FINDINGS: There is neutral facing of the distal radius. Satisfactory alignment. RAD/Wrist min 3 Views IMPRESSION: Satisfactory alignment of the distal radial fracture. Electronically Signed: Raoul Cobian MD at 8:59 EST Tel [phone], Service support , CC: Esteban Phelps MD; Trent Griffiths DO Boning Room Worker: Signed CBC Collected: 03/19/2018 Status: F Source: [place] 10:49 AM [facility] REPOSITORY TYPE CODE TESTS RESULT OUT OF REFERENCE UNITS RANGE LAB WBC 3.70-11.00 k/uL WBC High 13.21 LAB RBC 3.90-5.20 m/uL RBC 4.55 LAB HGB 11.5-15.5 g/dL Hemoglobin 14.3 LAB HCT 36.0-46.0 % Hematocrit 45.3 LAB MCV 80.0-100.0 fL MCV 99.6 LAB MCH 26.0-34.0 pG MCH 31.4 LAB MCHC 30.5-36.0 g/dL MCHC 31.6 LAB RDWCV 11.5-15.0 % RDW-CV 13.7 LAB PLTCT 150-400 k/uL Platelet Count 278 LAB MPV 9.0-12.7 fL MPV 10.8 LAB ABSNUC <0.01 k/uL Absolute nRBC <0.01 Performed By: #### CBC, BMP #### [facility] [address] [place] [address] BASIC METABOLIC PANL Collected: 03/19/2018 Status: F Source: [place] 10:49 AM [facility] REPOSITORY TYPE CODE TESTS RESULT OUT OF REFERENCE UNITS RANGE LAB GLU 74-99 mg/dL High Glucose 112 Result Comment: The [place] Diabetes Association (ADA) provides guidance for cutoff values for fasting glucose and random glucose. The ADA defines fasting as no caloric intake for at least 8 hours. Fas ting plasma glucose results between 100 to 125 mg/dL indicate increased risk for diabetes (prediabetes). Fasting plasma glucose results greater than or equal to 126 mg/dL meet the criteria for diagnosis of diabetes. In the absence of unequivocal hyperglycemia, results should be confirmed by repeat testing. In a patient with classic symptoms of hyperglycemia or hyperglycemic crisis, random plasma glucose results greater than or equal to 200 mg/dL meet the criteria for diagnosis of diabetes. Reference: Standards of Medical Care in Diabetes 2016, [place] Diabetes Association. Diabetes Care. 2016.39(Suppl 1). LAB BUN 7-21 mg/dL BUN 18 LAB CRET 0.58-0.96 mg/dL Creatinine 0.73 LAB NA 136-144 mmol/L Sodium 140 LAB K 3.7-5.1 mmol/L Potassium 3.9 LAB CL 97-105 mmol/L Chloride 103 LAB CO2 22-30 mmol/L CO2 28 LAB AGAP 9-18 mmol/L Anion Gap 9 LAB CA 8.5-10.2 mg/dL Calcium, Total 9.4 LAB GFRAA eGFR- Amer. >60 LAB GFRNAA . eGFR-All Other Races >60 Result Comment: eGFR (Estimated GFR) Units of measure: mL/min/1.73 meters squared eGFR is derived from the reexpressed MDRD Study equation using the following parameters: serum creatinine, age, gender and race. The creatinine assay has been calibrated to be traceable to IDMS. An eGFR <60 mL/min/1.73m2 for >3 months is consistent with chronic kidney disease. Refer to KDOQI guidelines for clinical interpretation. In patients with unstable renal function, e.g. those with acute kidney injury, the eGFR may not accurately reflect actual GFR. Performed By: #### CBC, BMP #### [facility] [address] [id number] PROGRESS Observed: 03/19/2018 Status: COMPLETED Source: [place] 10:44 AM [facility] REPOSITORY O ID: [id number] Author: Leticia (Rt) Karli Velez Service: (none) Author Type: Retort Fireman Type: Progress Notes Filed: 03/19/2018 10:44 AM Note Text: Radiology Service Progress Note PATIENT NAME: Afsaneh Lowe DATE OF SERVICE: March 19, 2018 TIME: 10:44 AM PATIENT IDENTITY VERIFICATION COMPLETED USING TWO (2) METHODS: Patient confirmed name verbally and Date of . PATIENT GENDER DATA: Female. status: : No status: NO. PATIENT RELEVANT IMPLANT DATA REVIEWED: Not Applicable RADIOLOGY DEPARTMENT: General X-ray: Exam(s) Completed: Chest X-Ray PERIPHERAL IV DATA: Not applicable SIGNED BY: RT Joao March 19, 2018 10:44 AM XR CHEST 2V FRONTAL/LAT Observed: 03/19/2018 Status: F Source: [place] 10:42 AM [facility] REPOSITORY * * *Final Report* * * DATE OF EXAM: Mar 19 2018 10:42AM WOX [id number] - XR CHEST 2V FRONTAL/LAT / PROCEDURE REASON: Pre-op exam * * * * Physician Interpretation * * * * EXAMINATION: CHEST RADIOGRAPH (2 VIEW FRONTAL and LATERAL) CLINICAL HISTORY: Pre-op exam MQ: XC2_5 Comparison: Comparison is made to prior chest dated 23 October 2016 RESULT: Lines, tubes, and devices: None. Lungs and pleura: There is no focal consolidation or acute pleural process. There is no overt pulmonary edema. Cardiomediastinal silhouette: Normal cardiomediastinal silhouette. Other: The bony structures are intact IMPRESSION: Stable chest. No acute cardiopulmonary process. Boning Room Worker: PSCB Transcribe Date/Time: Mar 19 2018 3:19P Dictated by : GENO FAGAN MD This examination was interpreted and the report reviewed and electronically signed by: GENO FAGAN MD on Mar 19 2018 3:22PM EST [id number] Observed: 03/19/2018 Status: COMPLETED Source: [place] 10:00 AM [facility] REPOSITORY Office Visit (INTMWS) AFSANEH LOWE ([id number]) 1955 F BLD Date Time Provider Department 03/19/18 10:00 AM YOUNG SUH) INTMWS During your visit today, we recorded the following information about you: Pulse Respiration Blood pressure Weight 97/minute 16/minute 132/86 99.3 kg Young Suh APRN.CNP 03/19/2018 10:55 AM Signed CC: Patient presents with: Pre-Op Exam: Pre-Op Clearance for R wrist fracture HPI Afsaneh Lowe is a 62 year old female who presents today with caregiver for pre-op evaluation. Surgical Procedure: right wrist closed reduction with casting and possible pinning Date of Procedure: 03/27/18 METS: Walk indoors, such as around the house (1.75 METs): YES, some SOB and CP? Do light work around the house, such as dusting or washing dishes (2.70 METs): NO Take care of self; that is eating, dressing, bathing, using the toilet (2.75 METs): YES, concerns for falling Walk a block or two on level ground (2.75 METs): NO, possible with her therapy dog and mobility harness Do moderate work around the house such as vacuuming, sweeping floors, or carrying in groceries (3.50 METs): NO Do yardwork, such as raking leaves, weeding,or pushing a power mower (4.50 METs): NO Climb a flight of stairs or walk up a hill (5.50 METs): NO Participate in moderate recreational activities, such as golf, bowling, dancing, doubles tennis, or throwing a baseball or football (6.00 METs): NO Participate in strenuous sport, such as swimming, singles tennis, football, basketball, or skiing (7.50 METs): NO Do heavy work around the house, such as scrubbing floors, lifting or moving heavy furniture (8.00 METs): NO Run a short distance (8.00 METs): NO Total: 4.5 patient has home health aide that 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 1. Diabetes: None, previous hx no longer requiring medication 2. Hypertension requiring medication: No, previous hx medication d/c'd d/t hypotension 3. Congestive Heart Failure: Yes 4. Current Smoker within 1 Year: Yes 1ppd 5. History of COPD: Yes using rescue inhaler ~2x daily 6. History of ANTONY: None 7. Dialysis: N/A REVIEW OF SYSTEMS General: no fevers, no chills, no night sweats, no recurrent infections, no change in appetite, no change in energy and no significant changes in weight Neck: no lumps, no pain and no swelling Respiratory: no cough, no wheezing, no shortness of breath, no hemoptysis Cardiovascular: no chest pain, no chest pressure, no palpitations and no swelling Hematologic/Lymph: Negative for prolonged bleeding, bruising easily or swollen nodes PAST MEDICAL HISTORY Diagnosis Date - Abdominal pain, other specified site chronic - Arthritis - Asthma - Asthmatic bronchitis - Atypical chest pain - Auditory hallucinations 12/19/2014 [facility] - see scanned documents - Back pain - Benign neoplasm of colon - Blepharospasm - Bronchitis - Carpal tunnel syndrome of left wrist 04/06/2015 mild, nerve conduction study - CHF (congestive heart failure) ([facility]) - Constipation - COPD (chronic obstructive pulmonary disease) ([facility]) - Coronary disease - Degenerative arthritis of knee bilateral - Depression - Diarrhea - Encephalopathy acute 02/19/2018 Admitted [facility] - Epilepsy ([facility]) - Fibromyalgia - Hemorrhoids - Hypertension - IDDM (insulin dependent diabetes mellitus) ([facility]) - Intoxication with opioids ([facility]) + urine tox - Kidney stones - Kidney stones - Migraine - Mitral valve disorders - Narcotic abuse ([facility]) NO NARCOTICS, see OARRS, multiple providers - Obesity - Osteoporosis - Pneumonia - Renal failure - Restrictive lung disease 02/2015 - Right shoulder injury - Schizo affective schizophrenia ([facility]) Dr. Mcdonnell Psychiatrist - Seizures ([facility]) Pt. uses medical alert dog - Sleep disorder - Stroke ([facility]) - Suicidal ideations 12/19/2014 [facility] - see scanned documents - UTI (urinary tract infection) PAST SURGICAL HISTORY Procedure Laterality Date - COLONOSCOP W/ OR W/O [facility] SPEC 07/03/2010 Colonoscopy - COLONOSCOP W/ OR W/O [facility] SPEC 01/21/2014 Colonoscopy - EGD W/O OR W/BRUSH/WASH 01/21/2014 EGD - EYE SURGERY HX 1999 - F LITHOTRIPSY 2013 kidney stones - LAP CHOLECYSTECT/CHOLANGIOGRAPHY 12/22/14 failed IOC due to small duct - LAPAROSCOPIC TUBAL LIGATION/RING/CLIP 84 - NAIL AVULSION, E/A NAIL Bilateral greast nails - PAST SURGICAL HISTORY OF teeth pulled - TOTAL KNEE REPLACEMENT 2012 bilateral knee replacement Left 04/2012/ right 09/2012 ALLERGIES Bee Sting; Betadine [Povidone-Iodine]; Imitrex [Sumatriptan Succinate]; Tape [Adhesive Tape (Rosins)] MEDICATIONS magnesium oxide (MAG-OX) 400 mg (241.3 mg magnesium) tablet TAKE 1 TABLET BY MOUTH DAILY fentaNYL (DURAGESIC) 12 mcg/hr pt72 Apply 1 Patch as directed every 72 hours. gabapentin (NEURONTIN) 300 mg capsule Take 300 mg by mouth three times daily. potassium chloride SR (MICRO-K) 10 mEq CR capsule TAKE 1 CAPSULE BY MOUTH TWICE A DAY Haloperidol 20 mg tablet hydrOXYzine pamoate (VISTARIL) 25 mg capsule meloxicam (MOBIC) 15 mg tablet divalproex ER (DEPAKOTE ER) 250 mg 24 hr tablet methocarbamol (ROBAXIN) 500 mg tablet COMPOUNDED PRESCRIPTION ADULT DIAPERS NEEDS MORE ABSORBANT TYPE, USING 12 DAILY DX N32 N39.3 R39.15 N39.41 N81.11 N81.4 COMPOUNDED PRESCRIPTION Diabetic booster2 cases per month. Dx is pravastatin (PRAVACHOL) 80 mg tablet TAKE 1 TABLET BY MOUTH AT BEDTIME Nebulizer Accessories kit Dispense new tubing, medication chamber and mouth pieces for use with Nebulizer. ICD10 code albuterol HFA (PROAIR HFA) 90 mcg/actuation inhaler INHALE 2 PUFFS BY MOUTH EVERY 6 HOURS NEEDED COMPOUNDED PRESCRIPTION Washable [place] Bed pads Change once daily as needed. DX N32 N39.3 R39.15 N39.41 N81.11 N81.4 OYSTER SHELL CALCIUM-VITAMIN D 500 mg(1,250mg) -200 unit per tablet TAKE 1 TABLET BY MOUTH DAILY blood sugar diagnostic (BLOOD GLUCOSE TEST) test strip Test blood sugar(s) 4 times daily. Dx: Type 2 DM - Controlled E11.9 Insulin: No lancets (ONE TOUCH DELICA) 33 gauge misc Test blood sugars four times daily. E11.9. No insulin nut.tx.gluc intol,lf,soy-fiber (BOOST GLUCOSE CONTROL) 0.06- 1.1 gram-kcal/mL liqd Take 1 Each by mouth once daily. albuterol (PROVENTIL) 2.5 mg /3 mL (0.083 %) nebulizer solution Use 3 mL via nebulizer every 4 hours as needed for Wheezing/Shortness of Breath. Use over 5-15minutes. DX:asthmatic bronchitis J 45.909 EPINEPHrine (EPIPEN, AUVI-Q) 0.3 mg/0.3 mL auto-injector as needed for allergic anaphylaxis olopatadine (PATANOL) 0.1 % ophthalmic solution USE 1 DROP IN BOTH EYES TWICE DAILY. phenytoin ER (DILANTIN) 100 mg ER capsule Takes 2 capsules 3 times per day topiramate (TOPAMAX) 50 mg tablet Take 1 tablet by mouth twice daily. nitroglycerin sublingual (NITROQUICK) 0.4 mg SL tablet Dissolve 1 tablet under the tongue every 5 minutes as needed for Chest Pain. venlafaxine ER (EFFEXOR XR) 75 mg 24 hr capsule Take 2 capsules by mouth once daily. ALCOHOL PREP PADS padm USE TWICE DAILY rizatriptan (MAXALT) 10 mg tablet Take 10 mg by mouth as needed (one as neede for headache). May repeat in 2 hours if needed mupirocin (BACTROBAN) 2 % ointment Apply 1 application to affected area three times daily. aspirin, enteric coated (ADULT LOW DOSE ASPIRIN) 81 mg EC tablet Take 1 tablet by mouth once daily. silver sulfADIAZINE (SILVADENE,THERMAZENE) 1 % cream Apply 1 application to affected area twice daily. ziprasidone (GEODON) 80 mg capsule Take 1 capsule by mouth twice daily. takes 1 in the am and 1 at bedtime. FAMILY HISTORY Problem Relation Age of Onset - Headache Mother migraines - Cancer Mother Bladder - other (mental illness) Mother - Diabetes Father heart - Headache Father migraine - Alzheimer's Disease Father 65 - Heart Father - Hypertension Father - Seizures Father - Stroke Father - Colon Cancer Maternal Grandmother - other (mental illness) Daughter - other (schizophrenia) Daughter and bipolar - Cancer Other Social History Substance Use Topics - Smoking status: Current Every Day Smoker Packs/day: 1.00 Years: 3.00 Types: Cigarettes - Smokeless tobacco: Never Used - Alcohol use No PHYSICAL EXAM BP 132/86 Pulse 97 Resp 16 Wt 99.3 kg (219 lb) SpO2 97% BMI 40.06 kg/m? General Appearance: well appearing, in no acute distress, alert Neck: Thyroid normal size and symmetric without palpable nodules, No adenopathy Oropharynx: lips normal without lesions, tongue midline and normal, soft palate, uvula, and tonsils normal Lungs: lungs clear to auscultation. No wheezing, rhonchi, rales Heart: RRR without murmur, gallop, or rubs. No ectopy Abdomen: soft, nondistended, nontender, no hepatosplenomegaly or masses Bilateral Lower Extremities: No deformities, edema, skin discoloration, clubbing or cyanosis. RUE: splinted with pietro wrap, mild edema noted to fingers HPV EVERY 5 YEARS due on 1986 DILATED RETINAL EXAM due on 08/01/2017 STATIN MED ADHERENCE due on 03/29/2018 HBA1C due on 07/30/2018 MAMMOGRAM due on 08/19/2018 ANNUAL PCP TEAM CHRONIC DISEASE VISIT due on 01/21/2019 BP CONTROLLED (<130/80) due on 01/21/2019 URINE ALBUMIN:CREATININE RATIO due on 01/29/2019 LDL CHOLESTEROL due on 01/29/2019 DIABETIC FOOT EXAM due on 02/19/2019 PAP EVERY 5 YEARS due on 10/16/2020 COLORECTAL CANCER SCREENING,SEE MODIFIER due on 01/22/2024 DTAP,TDAP,TD(2 - Td) due on 11/10/2025 ONE PNEUMOVAX PRIOR TO AGE 65 Completed INFLUENZA Completed HEPATITIS C SCREENING Completed ASSESSMENT/PLAN: 1. Pre-op exam - ICD9: V72.84, ICD10: Z01.818 - XR CHEST 2V FRONTAL/LAT - CBC - BASIC METABOLIC PNL - EKG- completed 02/19/18 reviewed, unchanged Check Basic Metabolic Panel Complete Blood Count CAD - Stable and medication(s) reviewed CHF - stable, without recent exacerbation or hospitalization COPD - Mild, use of rescue inhaler only. Without recent exacerbation Epilepsy- recent hospital admission [facility] for encephalopathy with suspected seizure 01/2018 Morbid Obesity FREEMAN risk: 0.56% Patient is scheduled for a low/intermediate-risk procedure The patient is cleared for surgery Young Suh APRN.BUSINESS DIVISION CHAIR Referring Provider: SELF [[id number]] Allergies As of Date: 03/19/2018 Noted Allergy Reaction BEE STING 10/10/2012 10 - Anaphylaxis BETADINE (POVIDONE-IODINE) 12/17/2013 16 - Unknown IMITREX (SUMATRIPTAN SUCCINATE) 12/17/2005 11 - Vomiting TAPE (ADHESIVE TAPE (ROSINS)) 09/25/2012 14 - Other: See Comments Comments: Patients states paper tape makes her blister Date Reviewed: 03/19/2018 Reviewed by: Christy Glover Ma - Fully Assessed Reason for Visit: Pre-Op Exam [87] Cmt: Pre-Op Clearance for R wrist fracture Primary Visit Diagnosis:Pre-op exam [Z01.818] Order(s):XR CHEST 2V FRONTAL/LAT [5456360] Order #: [id number] FUTURE CBC [SQCBC] Order #: [id number] FUTURE BASIC METABOLIC PNL [SQBMP] Order #: [id number] FUTURE Prescriptions as of 03/19/2018 Sig: MAGNESIUM OXIDE 400 MG (241.3* TAKE 1 TABLET BY MOUTH DAILY FENTANYL 12 MCG/HR TRANSDERMA* Apply 1 Patch as directed ace* GABAPENTIN 300 MG CAPSULE Take 300 mg by mouth three ti* POTASSIUM CHLORIDE ER 10 MEQ * TAKE 1 CAPSULE BY MOUTH TWICE* HALOPERIDOL 20 MG TABLET HYDROXYZINE PAMOATE 25 MG CAP* MELOXICAM 15 MG TABLET DIVALPROEX ER 250 MG TABLET,E* METHOCARBAMOL 500 MG TABLET COMPOUNDED PRESCRIPTION ADULT DIAPERS NEEDS MORE ABSO* COMPOUNDED PRESCRIPTION Diabetic booster 2 cases per* PRAVASTATIN 80 MG TABLET TAKE 1 TABLET BY MOUTH AT BED* NEBULIZER ACCESSORIES KIT Dispense new tubing, medicati* ALBUTEROL SULFATE HFA 90 MCG/* INHALE 2 PUFFS BY MOUTH EVERY* COMPOUNDED PRESCRIPTION Washable [place] Bed pads Change* OYSTER SHELL CALCIUM-VITAMIN * TAKE 1 TABLET BY MOUTH DAILY LANCETS 33 GAUGE Test blood sugars four times * NUTRITION TX GLU INTOL,LAC-FR* Take 1 Each by mouth once qiana* ALBUTEROL SULFATE 2.5 MG/3 ML* Use 3 mL via nebulizer every * EPINEPHRINE 0.3 MG/0.3 ML INJ* as needed for allergic anaphy* OLOPATADINE 0.1 % EYE DROPS USE 1 DROP IN BOTH EYES TWICE* PHENYTOIN SODIUM EXTENDED 100* Takes 2 capsules 3 times per * Patient taking differently: Take 200 mg by mouth twice da* TOPIRAMATE 50 MG TABLET Take 1 tablet by mouth twice * Patient taking differently: Take 200 mg by mouth twice da* NITROGLYCERIN 0.4 MG SUBLINGU* Dissolve 1 tablet under the t* VENLAFAXINE ER 75 MG CAPSULE,* Take 2 capsules by mouth once* RIZATRIPTAN 10 MG TABLET Take 10 mg by mouth as needed* MUPIROCIN 2 % TOPICAL OINTMENT Apply 1 application to affect* ASPIRIN 81 MG TABLET,DELAYED * Take 1 tablet by mouth once d* SILVER SULFADIAZINE 1 % TOPIC* Apply 1 application to affect* * ZIPRASIDONE 80 MG CAPSULE Take 1 capsule by mouth twice* Problem List As Of Date 03/19/2018 Noted Resolved MITRAL VALVE DISORDER [I05.9] DIARRHEA NOS [R19.7] INVALID FOR* Benign neoplasm of colon [D12.6] INVALID FOR* Benign neoplasm of rectum and anal canal [D12.8*INVALID FOR* GERD (gastroesophageal reflux disease) [K21.9] INVALID FOR* Hiatal hernia [K44.9] INVALID FOR* Right rotator cuff tear [M75.101] INVALID FOR* Paranoid schizophrenia (HCC) [F20.0] INVALID FOR* Blepharospasm [G24.5] INVALID FOR* Hypertension [I10] INVALID FOR* Hyperlipidemia [E78.5] INVALID FOR* Intractable migraine without aura [G43.019] INVALID FOR*03/13/2016 Intractable migraine with aura [G43.119] INVALID FOR* 8.2.3 Analgesic overuse headache [F55.2] [339.3*INVALID FOR* Constipation [K59.00] Abdominal pain, other specified site [R10.9] Kidney stones [N20.0] Diabetes mellitus type 2, controlled, without c*INVALID FOR* Osteoarthritis, multiple sites [M15.9] INVALID FOR* Shoulder pain [M25.519] INVALID FOR* Chronic knee pain [M25.569, G89.29] INVALID FOR* S/P TKR (total knee replacement) [Z96.659] INVALID FOR* Calculus of gallbladder with chronic cholecysti*INVALID FOR* Umbilical hernia without obstruction or gangren*INVALID FOR* Family history of ischemic heart disease [Z82.4*INVALID FOR* Opioid abuse [F11.10] INVALID FOR* More... 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] INVALID FOR* Chronic right shoulder pain [M25.511, G89.29] INVALID FOR* Balance disorder [R26.89] INVALID FOR* Use of cane as ambulatory aid [Z99.89] INVALID FOR* Impaired vision [H54.7] INVALID FOR* Obesity, Class III, BMI 40-49.9 (morbid obesity*INVALID FOR* Medications Discontinued During This Encounter ALCOHOL PREP PADS padm 200 * 2 05/22/2016 03/19/2018 Sig: USE TWICE DAILY Disc: Reason for discontinue is not on file. blood sugar diagnostic (BLOOD GLUCOS* 200 * 11 03/01/2017 03/19/2018 Sig: Test blood sugar(s) 4 times daily. Dx: Type 2 DM - Controlled E11.9 Insulin: No Disc: Reason for discontinue is not on file. Encounter Status:Closed by YOUNG SUH CNP on 03/19/18 PROGRESS Observed: 03/19/2018 Status: COMPLETED Source: [place] 9:55 AM [facility] REPOSITORY [facility] ID: [id number] Author: Young Harris) Donny Service: (none) Author Type: Nurse Practitioner Type: Progress Notes Filed: 03/19/2018 10:55 AM Note Text: CC: Patient presents with: Pre-Op Exam: Pre-Op Clearance for R wrist fracture HPI Afsaneh Lowe is a 62 year old female who presents today with caregiver for pre-op evaluation. Surgical Procedure: right wrist closed reduction with casting and possible pinning Date of Procedure: 03/27/18 METS: Walk indoors, such as around the house (1.75 METs): YES, some SOB and CP? Do light work around the house, such as dusting or washing dishes (2.70 METs): NO Take care of self; that is eating, dressing, bathing, using the toilet (2.75 METs): YES, concerns for falling Walk a block or two on level ground (2.75 METs): NO, possible with her therapy dog and mobility harness Do moderate work around the house such as vacuuming, sweeping floors, or carrying in groceries (3.50 METs): NO Do yardwork, such as raking leaves, weeding,or pushing a power mower (4.50 METs): NO Climb a flight of stairs or walk up a hill (5.50 METs): NO Participate in moderate recreational activities, such as golf, bowling, dancing, doubles tennis, or throwing a baseball or football (6.00 METs): NO Participate in strenuous sport, such as swimming, singles tennis, football, basketball, or skiing (7.50 METs): NO Do heavy work around the house, such as scrubbing floors, lifting or moving heavy furniture (8.00 METs): NO Run a short distance (8.00 METs): NO Total: 4.5 patient has home health aide that 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 1. Diabetes: None, previous hx no longer requiring medication 2. Hypertension requiring medication: No, previous hx medication d/c'd d/t hypotension 3. Congestive Heart Failure: Yes 4. Current Smoker within 1 Year: Yes 1ppd 5. History of COPD: Yes using rescue inhaler ~2x daily 6. History of ANTONY: None 7. Dialysis: N/A REVIEW OF SYSTEMS General: no fevers, no chills, no night sweats, no recurrent infections, no change in appetite, no change in energy and no significant changes in weight Neck: no lumps, no pain and no swelling Respiratory: no cough, no wheezing, no shortness of breath, no hemoptysis Cardiovascular: no chest pain, no chest pressure, no palpitations and no swelling Hematologic/Lymph: Negative for prolonged bleeding, bruising easily or swollen nodes PAST MEDICAL HISTORY Diagnosis Date - Abdominal pain, other specified site chronic - Arthritis - Asthma - Asthmatic bronchitis - Atypical chest pain - Auditory hallucinations 12/19/2014 [facility] - see scanned documents - Back pain - Benign neoplasm of colon - Blepharospasm - Bronchitis - Carpal tunnel syndrome of left wrist 04/06/2015 mild, nerve conduction study - CHF (congestive heart failure) ([facility]) - Constipation - COPD (chronic obstructive pulmonary disease) ([facility]) - Coronary disease - Degenerative arthritis of knee bilateral - Depression - Diarrhea - Encephalopathy acute 02/19/2018 Admitted [facility] - Epilepsy ([facility]) - Fibromyalgia - Hemorrhoids - Hypertension - IDDM (insulin dependent diabetes mellitus) ([facility]) - Intoxication with opioids ([facility]) + urine tox - Kidney stones - Kidney stones - Migraine - Mitral valve disorders - Narcotic abuse ([facility]) NO NARCOTICS, see [facility], multiple providers - Obesity - Osteoporosis - Pneumonia - Renal failure - Restrictive lung disease 02/2015 - Right shoulder injury - Schizo affective schizophrenia ([facility]) Dr. Mcdonnell Psychiatrist - Seizures ([facility]) Pt. uses medical alert dog - Sleep disorder - Stroke ([facility]) - Suicidal ideations 12/19/2014 [facility] - see scanned documents - UTI (urinary tract infection) PAST SURGICAL HISTORY Procedure Laterality Date - COLONOSCOP W/ OR W/O BRSH SPEC 07/03/2010 Colonoscopy - COLONOSCOP W/ OR W/O BRSH SPEC 01/21/2014 Colonoscopy - EGD W/O OR W/BRUSH/WASH 01/21/2014 EGD - EYE SURGERY HX 1999 - F LITHOTRIPSY 2013 kidney stones - LAP CHOLECYSTECT/CHOLANGIOGRAPHY 12/22/14 failed IOC due to small duct - LAPAROSCOPIC TUBAL LIGATION/RING/CLIP 84 - NAIL AVULSION, E/A NAIL Bilateral greast nails - PAST SURGICAL HISTORY OF teeth pulled - TOTAL KNEE REPLACEMENT 2012 bilateral knee replacement Left 04/2012/ right 09/2012 ALLERGIES Bee Sting; Betadine [Povidone-Iodine]; Imitrex [Sumatriptan Succinate]; Tape [Adhesive Tape (Rosins)] MEDICATIONS magnesium oxide (MAG-OX) 400 mg (241.3 mg magnesium) tablet TAKE 1 TABLET BY MOUTH DAILY fentaNYL (DURAGESIC) 12 mcg/hr pt72 Apply 1 Patch as directed every 72 hours. gabapentin (NEURONTIN) 300 mg capsule Take 300 mg by mouth three times daily. potassium chloride SR (MICRO-K) 10 mEq CR capsule TAKE 1 CAPSULE BY MOUTH TWICE A DAY Haloperidol 20 mg tablet hydrOXYzine pamoate (VISTARIL) 25 mg capsule meloxicam (MOBIC) 15 mg tablet divalproex ER (DEPAKOTE ER) 250 mg 24 hr tablet methocarbamol (ROBAXIN) 500 mg tablet COMPOUNDED PRESCRIPTION ADULT DIAPERS NEEDS MORE ABSORBANT TYPE, USING 12 DAILY DX N32 N39.3 R39.15 N39.41 N81.11 N81.4 COMPOUNDED PRESCRIPTION Diabetic booster2 cases per month. Dx is pravastatin (PRAVACHOL) 80 mg tablet TAKE 1 TABLET BY MOUTH AT BEDTIME Nebulizer Accessories kit Dispense new tubing, medication chamber and mouth pieces for use with Nebulizer. ICD10 code albuterol HFA (PROAIR HFA) 90 mcg/actuation inhaler INHALE 2 PUFFS BY MOUTH EVERY 6 HOURS NEEDED COMPOUNDED PRESCRIPTION Washable [place] Bed pads Change once daily as needed. DX N32 N39.3 R39.15 N39.41 N81.11 N81.4 OYSTER SHELL CALCIUM-VITAMIN D 500 mg(1,250mg) -200 unit per tablet TAKE 1 TABLET BY MOUTH DAILY blood sugar diagnostic (BLOOD GLUCOSE TEST) test strip Test blood sugar(s) 4 times daily. Dx: Type 2 DM - Controlled E11.9 Insulin: No lancets (ONE TOUCH DELICA) 33 gauge misc Test blood sugars four times daily. E11.9. No insulin nut.tx.gluc intol,lf,soy-fiber (BOOST GLUCOSE CONTROL) 0.06-1.1 gram-kcal/mL liqd Take 1 Each by mouth once daily. albuterol (PROVENTIL) 2.5 mg /3 mL (0.083 %) nebulizer solution Use 3 mL via nebulizer every 4 hours as needed for Wheezing/Shortness of Breath. Use over 5-15minutes. DX:asthmatic bronchitis J 45.909 EPINEPHrine (EPIPEN, AUVI-Q) 0.3 mg/0.3 mL auto-injector as needed for allergic anaphylaxis olopatadine (PATANOL) 0.1 % ophthalmic solution USE 1 DROP IN BOTH EYES TWICE DAILY. phenytoin ER (DILANTIN) 100 mg ER capsule Takes 2 capsules 3 times per day topiramate (TOPAMAX) 50 mg tablet Take 1 tablet by mouth twice daily. nitroglycerin sublingual (NITROQUICK) 0.4 mg SL tablet Dissolve 1 tablet under the tongue every 5 minutes as needed for Chest Pain. venlafaxine ER (EFFEXOR XR) 75 mg 24 hr capsule Take 2 capsules by mouth once daily. ALCOHOL PREP PADS padm USE TWICE DAILY rizatriptan (MAXALT) 10 mg tablet Take 10 mg by mouth as needed (one as neede for headache). May repeat in 2 hours if needed mupirocin (BACTROBAN) 2 % ointment Apply 1 application to affected area three times daily. aspirin, enteric coated (ADULT LOW DOSE ASPIRIN) 81 mg EC tablet Take 1 tablet by mouth once daily. silver sulfADIAZINE (SILVADENE,THERMAZENE) 1 % cream Apply 1 application to affected area twice daily. ziprasidone (GEODON) 80 mg capsule Take 1 capsule by mouth twice daily. takes 1 in the am and 1 at bedtime. FAMILY HISTORY Problem Relation Age of Onset - Headache Mother migraines - Cancer Mother Bladder - other (mental illness) Mother - Diabetes Father heart - Headache Father migraine - Alzheimer's Disease Father 65 - Heart Father - Hypertension Father - Seizures Father - Stroke Father - Colon Cancer Maternal Grandmother - other (mental illness) Daughter - other (schizophrenia) Daughter and bipolar - Cancer Other Social History Substance Use Topics - Smoking status: Current Every Day Smoker Packs/day: 1.00 Years: 3.00 Types: Cigarettes - Smokeless tobacco: Never Used - Alcohol use No PHYSICAL EXAM BP 132/86 Pulse 97 Resp 16 Wt 99.3 kg (219 lb) SpO2 97% BMI 40.06 kg/m? General Appearance: well appearing, in no acute distress, alert Neck: Thyroid normal size and symmetric without palpable nodules, No adenopathy Oropharynx: lips normal without lesions, tongue midline and normal, soft palate, uvula, and tonsils normal Lungs: lungs clear to auscultation. No wheezing, rhonchi, rales Heart: RRR without murmur, gallop, or rubs. No ectopy Abdomen: soft, nondistended, nontender, no hepatosplenomegaly or masses Bilateral Lower Extremities: No deformities, edema, skin discoloration, clubbing or cyanosis. RUE: splinted with pietro wrap, mild edema noted to fingers HPV EVERY 5 YEARS due on 1986 DILATED RETINAL EXAM due on 08/01/2017 STATIN MED ADHERENCE due on 03/29/2018 HBA1C due on 07/30/2018 MAMMOGRAM due on 08/19/2018 ANNUAL PCP TEAM CHRONIC DISEASE VISIT due on 01/21/2019 BP CONTROLLED (<130/80) due on 01/21/2019 URINE ALBUMIN:CREATININE RATIO due on 01/29/2019 LDL CHOLESTEROL due on 01/29/2019 DIABETIC FOOT EXAM due on 02/19/2019 PAP EVERY 5 YEARS due on 10/16/2020 COLORECTAL CANCER SCREENING,SEE MODIFIER due on 01/22/2024 DTAP,TDAP,TD(2 - Td) due on 11/10/2025 ONE PNEUMOVAX PRIOR TO AGE 65 Completed INFLUENZA Completed HEPATITIS C SCREENING Completed ASSESSMENT/PLAN: 1. Pre-op exam - ICD9: V72.84, ICD10: Z01.818 - XR CHEST 2V FRONTAL/LAT - CBC - BASIC METABOLIC PNL - EKG- completed 02/19/18 reviewed, unchanged Check Basic Metabolic Panel Complete Blood Count CAD - Stable and medication(s) reviewed CHF - stable, without recent exacerbation or hospitalization COPD - Mild, use of rescue inhaler only. Without recent exacerbation Epilepsy- recent hospital admission [facility] for encephalopathy with suspected seizure 01/2018 Morbid Obesity FREEMAN risk: 0.56% Patient is scheduled for a low/intermediate-risk procedure The patient is cleared for surgery Young Suh APRN.CNP EMERGENCY DEPARTMENT Observed: 03/17/2018 Status: F Source: [place] SUMMARY 2:22 PM [facility] REPOSITORY [facility] Medical Records Department [address] [place] [address] Emergency Department Summary 03/17/18 0906 MR#: [id number] Acct: [id number] Name: AFSANEH LOWE Rep #: [id number] : 1955 62 From: Trent Lowe MD PCP: Esteban Phelps MD Status: DEP ER - ER Visit Summary Date of Service: 03/17/18 Chief Complaint: Fall, wrist injury History of Present Illness: The patient is a 62 F who is legally blind and ambulates with cane presents after mechanical fall. Patient states she was walking in her house. She was not using her cane. She states that she tripped over her own feet. She fell forward and caught herself on an outstretched right wrist. She did not strike her head. She denies loss of consciousness. She is complaining of pain in the right wrist and the right elbow. The patient does not take anticoagulants. She was recently hospitalized for encephalopathy secondary to excessive medication use. She states she is been in her normal state of health otherwise. Physical Examination: Vital signs reviewed General: Well-nourished, well-developed Head: Normocephalic, atraumatic Eyes: Pupils equal and reactive, extraocular muscles intact Neck, supple, no lymphadenopathy Heart: Regular rate and rhythm Respiratory: No distress, clear bilaterally Abdomen: Soft, nontender, nondistended, no peritoneal signs Back: Nontender Extremities: Tenderness over the dorsum of the right wrist, 2+ pulses, obvious deformity, neurologically intact, no edema, no cords Skin: Normal color no rash Neuro: Alert and oriented, no focal or lateralizing deficits Test Results: [] Emergency Department Course and Treatment: The patient did not hit her head or lose consciousness. I did obtain plain films of the wrist and the elbow. Elbow films were unremarkable. Wrist does show a dorsally displaced distal radius fracture. I discussed the patient with Dr. Griffiths. I did do a hematoma block with lidocaine. I did attempt to reduce the fracture, but was unable to get it fully reduced. The patient was placed in a splint. She was more comfortable in the splint. I do feel that this patient's can require surgical fixation. She was more comfortable and does have intra-articular extension, I did not feel that trying the reduction would be of benefit at this time. The patient will be discharged to follow-up with orthopedics. Treatment Plan: [] Disposition: Discharge Impression: Distal radius fracture This note was generated with [employer] dictation software. It may contain incorrect words, spelling, and punctuation that were not noted in review of the chart prior to signing ED Disposition - Plan for ED Patient: Chief Complaint: Fall Instructions: ED Fx Colles Wrist Redu Requ Referrals: Trent Griffiths, [STAFF PHYSICIAN] - What to do if you have Problems For any increased pain, shortness of breath, bleeding, nausea or vomiting, chest pain, or any unexpected problems, contact your Primary Care Provider. Call [facility] ([phone]) or report to the closest Emergency Room. Call 911 if necessary. 03/17/18 1422 <Electronically signed by Trent Lowe MD> Date Trent Lowe MD Cosigner Signature (If Indicated): Date CC: Esteban Phelps MD WRIST 2 VIEWS Observed: 03/17/2018 Status: F Source: [place] 10:16 AM [facility] REPOSITORY [facility] Imaging Services [facility] [place] [place] [address] Wrist 2 Views MR#: [id number] Acct: [id number] Name: AFSANEH LOWE Rep #: [id number] : 1955 F 62 From: Raoul Cobian MD PCP: Esteban Phelps MD Status: PRE ER Study: Wrist 2 Views Date of Exam: 03/17/18 Exam# [id number] Ordering Dr: Trent Lowe MD STUDY: X-RAY - RIGHT WRIST REASON FOR EXAM: Female, 62 years old. Post reduction examination. TECHNIQUE: 2 view(s) of the wrist were obtained. COMPARISON: Comparison is made with prior study done earlier today. FINDINGS: Comminuted fracture of the distal radial metaphysis. Residual dorsal facing. Avulsion fracture of the ulnar styloid. Normal radiocarpal articulation. Normal distal radioulnar articulation. Normal carpal bones. Normal carpal articulations. Normal carpometacarpal articulation of the thumb. Normal second through fifth carpometacarpal articulations. Normal visualized metacarpal bones. Soft tissue swelling. RAD/Wrist 2 Views IMPRESSION: Residual dorsal facing of the radial carpal joint. Electronically Signed: Raoul Cobian MD at 10:54 EST Tel [phone], Service support , CC: Esteban Phelps MD; Trent Lowe MD Boning Room Worker: Signed WRIST 2 VIEWS Observed: 03/17/2018 Status: F Source: [place] 9:04 AM [facility] REPOSITORY [facility] Imaging Services [address] [place] [id number] Wrist 2 Views MR#: [id number] Acct: [id number] Name: AFSANEH LOWE Rep #: [id number] : 1955 F 62 From: Raoul Cobian MD PCP: Esteban Phelps MD Status: PRE ER Study: Wrist 2 Views Date of Exam: 03/17/18 Exam# [id number] Ordering Dr: Trent Lowe MD STUDY: X-RAY - RIGHT WRIST REASON FOR EXAM: Female, 62 years old. Pain and deformity following a fall. TECHNIQUE: 2 view(s) of the wrist were obtained. COMPARISON: None. FINDINGS: Is evidence of a comminuted nondisplaced fracture of the distal radial metaphysis with dorsal facing. Avulsion fracture of the ulnar styloid. Normal radiocarpal articulation. Normal distal radioulnar articulation. Normal carpal bones. Normal carpal articulations. Normal carpometacarpal articulation of the thumb. Normal second through fifth carpometacarpal articulations. Normal visualized metacarpal bones. Soft tissue swelling. RAD/Wrist 2 Views IMPRESSION: Comminuted nondisplaced fracture of the distal radial metaphysis with dorsal angulation. Avulsion fracture of the ulnar styloid. Soft tissue swelling. Electronically Signed: Raoul Cobian MD at 9:36 EST Tel [phone], Service support , CC: Esteban Phelps MD; Trent Lowe MD Boning Room Worker: Signed ELBOW 2 VIEWS Observed: 03/17/2018 Status: F Source: URBANA 9:04 AM [facility] Imaging Services [address] [place] [address] Elbow 2 Views MR#: [id number] Acct: [id number] Name: AFSANEH LOWE Rep #: [id number] : 1955 F 62 From: Raoul Cobian MD PCP: Esteban Phelps MD Status: PRE ER Study: Elbow 2 Views Date of Exam: 03/17/18 Exam# [id number] Ordering Dr: Trent Lowe MD STUDY: X-RAY - RIGHT ELBOW REASON FOR EXAM: Female, 62 years old. History of fall. Pain. TECHNIQUE: 2 view(s) of the elbow. COMPARISON: None. FINDINGS: Normal visualized humerus, radius and ulna. Normal radiocapitellar and ulnotrochlear articulations. The soft tissue structures are unremarkable. RAD/Elbow 2 Views IMPRESSION: Normal x-ray examination of the elbow. Electronically Signed: Raoul Cobian MD at 9:37 EST Tel [phone], Service support , CC: Esteban Phelps MD; Trent Lowe MD Boning Room Worker: Signed 12 LEAD ELECTROCARDIOGRAM Observed: 02/21/2018 Status: F Source: URBANA 1:30 PM [facility] REPOSITORY [facility] Cardiovascular Services [address] [place] [address] 12 Lead EKG 02/19/18 1636 MR#: [id number] Acct: [id number] Name: AFSANEH LOWE Rep #: [id number] : 1955 62 From: Mohinder Paula MD Attending Dr: Mohinder Sebastian MD Status: DIS [facility] Ordering Dr: Fernanda Kan MD Date: 02/19/18 Location: [facility] Sex: F C Admitted: 02/19/18 Test Reason : FALL Blood Pressure : / mmHG Vent. Rate : 084 BPM Atrial Rate : 084 BPM P-R Int : 192 ms QRS Dur : 080 ms QT Int : 384 ms P-R-T Axes : 028 -16 007 degrees QTc Int : 453 ms Normal sinus rhythm Inferior infarct , age undetermined Abnormal ECG Confirmed by CATHY ROJAS, MOHINDER ([id number]), editorial intern PHUONG VELEZ ([id number]) on 02/21/2018 1:29:49 PM Referred By: VINCENT Confirmed By:MOHINDER PAULA MD 02/21/18 1329 Date Mohinder Paula MD CC: Fernanda Kan MD; Esteban Phelps MD; Mohinder Sebastian MD Signed DISCHARGE SUMMARY Observed: 02/20/2018 Status: F Source: ERNA 6:08 PM [facility] REPOSITORY [facility] Medical Records Department [address] [address] Discharge Summary 02/20/18 1756 MR#: [id number] Acct: [id number] Name: AFSANEH LOWE Rep #: [id number] : 1955 62 From: Mohinder Sebastian MD PCP: Esteban Phelps MD Status: ADM [facility] Y Location: [place] [address] Discharge Date and Diagnosis - Problem List Patient Problems: Active and Suspected Problems Seizure (Acute) Encephalopathy (Acute) Accident due to mechanical fall without injury (Acute) Anxiety and depression (Acute) Date of Admission: 02/19/18 Date of Discharge: 02/20/18 - Primary Discharge Diagnosis Active and Suspected Problems Encephalopathy (Acute) Seizure (Acute) Accident due to mechanical fall without injury (Acute) Anxiety and depression (Acute) - Secondary Discharge Diagnosis Chronic Problems Schizophrenia (Chronic) COPD (chronic obstructive pulmonary disease) (Chronic) Tobacco use (Chronic) Morbid obesity (Chronic) Tobacco user (Chronic) Spondylosis of lumbar region without myelopathy or radiculopathy (Chronic) Diabetes (Chronic) Legal blindness (Chronic) HTN (hypertension) (Chronic) MVP (mitral valve prolapse) (Chronic) Hospital Course and Treatment Imaging Results: STUDY: CT BRAIN WITHOUT CONTRAST REASON FOR EXAM: Female, 62 years old. Fell, hit head. RADIATION DOSAGE (If Supplied By Facility): CTDIvol = ( 44.99 ) mGy, DLP = ( 796.11 ) mGycm TECHNIQUE: Transaxial CT imaging of the brain was performed without administration of intravenous contrast material. Individualized dose optimization techniques were used for this CT. COMPARISON: 05/16/2017. FINDINGS: There is mild left frontal soft tissue swelling. Normal calvarium. Normal size ventricles and extra-axial spaces for the patient's age. Normal white matter tracts of the cerebral hemispheres. Normal basal ganglia and thalami. Normal brainstem. Normal cerebellum. There is no intracranial hemorrhage. There are no findings of an acute ischemic infarction. Normal visualized paranasal sinuses. CT/Brain/Head without Contrast IMPRESSION: Mild soft tissue swelling. No intracranial findings. TUDY: CT CERVICAL SPINE WITHOUT CONTRAST REASON FOR EXAM: Female, 62 years old. Fell, hit head. RADIATION DOSAGE (If Supplied By Facility): CTDIvol = ( 16.38 ) mGy, DLP = ( 326.54 ) mGycm TECHNIQUE: High resolution transaxial imaging was performed without contrast material. Sagittal and coronal images were reconstructed. Individualized dose optimization techniques were used for this CT. COMPARISON: None FINDINGS: Normal craniovertebral junction. Normal anterior atlantoaxial articulation. Normal odontoid process. Normal cervical lordosis. Normal vertebral bodies and posterior osseous elements. C2-3: Normal endplates. Normal disc height and morphology. Normal central canal and intervertebral neuroforamina. C3-4: Normal endplates. Normal disc height and morphology. Normal central canal and intervertebral neuroforamina. C4-5: Normal endplates. Normal disc height and morphology. Normal central canal and intervertebral neuroforamina. There is mild facet hypertrophy, greater on the right. C5-6: Normal endplates. Normal disc height and morphology. Normal central canal and intervertebral neuroforamina. There is mild facet hypertrophy, greater on the right. C6-7: Normal endplates. Normal disc height and morphology. Normal central canal and intervertebral neuroforamina. C7-T1: Normal endplates. Normal disc height and morphology. Normal central canal and intervertebral neuroforamina. Normal visualized soft tissue structures. CT/Spine Cervical without Contras IMPRESSION: 1. No evidence of trauma. 2. Minimal degenerative changes. Electronically Signed: Sonal Bedolla MD at 18:07 EDT Tel , Service support , Operations: None Summary of Care Provided: Patient is a 62-year-old female with known history of migraines, morbid obesity BMI of 40.4, diabetes type 2, hyperlipidemia, tension, tobacco abuse legally blind, history of seizure disorder, chronic low back pain with pain meds, radiculopathy, chronic COPD, seizure disorder, anxiety, depression, schizophrenia, bipolar disorder who presents to the hospital after being evaluated by her therapist and having a fall in the office which CT of the head and neck and head was essentially negative, patient has been a had a known history of mixing medications, or supplementing her medication friends apparently. Patient denies this, patient will follow up with her therapist as an outpatient but will hold some of her sedating medications i.e. ambient and others please see list below. Patient did well had no requirement of further issues. Has gotten up and walk and has been eating. Family contacted and noted that patient has been mistaking her medications and has not been compliant with her psychiatric regimen. She refuses subacute rehab or placement at this time. She wishes to go home, understands that she is not to drive whatsoever. Laboratories phenytoin level 7.5, valproic acid level 60, CT head with mild soft tissue swelling otherwise no acute intracranial findings, CT cervical spine with no evidence of trauma with minimal degenerative changes. (1) Encephalopathy Secondary to mixing of medications most likely and sedating. Hold some of her medications (2) Accident due to mechanical fall without injury These are essentially negative (3) Anxiety and depression Continue home medications and follow-up with psychiatry (4) Schizophrenia Continue home medications (5) COPD (chronic obstructive pulmonary disease) Continue home medications (6) Tobacco use Consult patient to stop tobacco products (7) Spondylosis of lumbar region without myelopathy or radiculopathy On chronic pain medications be aware (8) Diabetes Restart metformin (9) Legal blindness Be aware (10) HTN (hypertension) Continue home medications, when blood pressure improves (11) MVP (mitral valve prolapse) Be aware (12) Morbid obesity Counseled on diet and exercise but will need to be reiterated 13 seizures Continue home medications Disposition patient will go home when able to. She is currently in stable condition Medications reviewed with the patient. Risks, benefits, alternatives, side effects, potential complications and dangers of medications discussed. Patient wishes to utilize these agents despite risk. A signed medical consent/advisement form regarding narcotic medications and a side medication agreement are located in the patient's chart. Chart is dictated with denture contour wire specialist software. Errors may occur in dictation that may change providers meaning. This note was generated with [employer] dictation software. It may contain incorrect words, spelling, and punctuation that were not noted in checking the note before signing. Patient Problems: Active and Suspected Problems Seizure (Acute) Encephalopathy (Acute) Accident due to mechanical fall without injury (Acute) Anxiety and depression (Acute) - Physical Exam General: Alert, Oriented x3, Cooperative HEENT: PERRLA, EOMI, - - Old bump on the left temporal noted Oral: Moist Mucosa, No Gingival or Mucosal Lesions/ Ulcerations Neck: Supple, No JVD, Trachea Midline Lungs: Clear to auscultation, Normal air movement, No rhonchi, - - Prolonged expiratory phase Cardiovascular: Regular rate, Normal S1, Normal S2 Abdomen: Bowel Sounds Present, Soft, Non Tender, Non-Distended Extremities: No clubbing, No cyanosis, No edema Skin: No rashes, No breakdown Musculoskeletal: No Tenderness to Palpation of Joints or Extremities - Has chronic back pain however Lymphatic: No Cervical, Supraclavicular, or Inguinal Adenopathy Neurological: Cranial nerves II-XII grossly intact, Neuro grossly intact Psych/Mental Status: Normal Affect, Appropriate, Alert and oriented to time, place, person, mood and affect Vital Signs Temp Pulse Resp BP Pulse Ox 98.6 F 95 18 114/77 96 02/20/18 16:19 02/20/18 16:19 02/20/18 16:19 02/20/18 16:19 02/20/18 16:19 Oxygen Delivery Method Room Air Weight: 100.3 kg Body Mass Index (BMI) 40.4 Finger Stick Blood Glucose 120 Intake and Output for Last 24 Hours Intake Total 720 / 720 Balance 720 / 720 Laboratory Tests Past 24 Hrs Hemoglobin A1c 5.2 Magnesium 1.9 Urine Color Urine Clarity Urine pH Hemoglobin A1c Magnesium Urine Color Yellow Urine Clarity Sl. Cloudy POC Glucose POC Glucose 111 H 107 96 POC Glucose 102 Discharge Diet: No Restrictions - Low-sodium diet 1800 Ada Discharge Activity: Return to Normal Activity, May Not Drive, May not drive while taking narcotic pain medications. May resume sexual activity in: No Restrictions Call your doctor if you observe: Fever of 101 or Higher, Numbness or Tingling, Shortness of breath, Fainting spells, Chest pain, Increased palpitations (irregular heartbeat) Home Medications: Medications to take at Discharge Ziprasidone HCl [Geodon] 80 mg PO BID 07/11/13 Pravastatin [Pravachol] 80 mg PO QHS 09/07/15 Aspirin [Aspirin, Baby] 81 mg PO DAILY@0800 03/11/16 Topiramate [Topiramate ER] 200 mg PO BID 05/29/16 Haloperidol 20 mg PO TID 05/21/17 Divalproex (ER) [Depakote ER] 250 mg PO BID 12/02/17 Gabapentin [Neurontin] 300 mg PO TID 30 Days #90 cap 12/02/17 Meloxicam 7.5 mg PO DAILY 12/02/17 Morphine Sulfate [Morphine Sulfate ER] 15 mg PO Q6H PRN PRN 12/02/17 Oxycodone HCl/Acetaminophen [Percocet 5-325] 1 tablet PO Q6H PRN PRN 12/02/17 Phenytoin Sodium Extended [Dilantin] 100 mg PO BID 12/02/17 Potassium Chloride 10 meq PO BID 12/02/17 Albuterol Inhaler [Ventolin Hfa] 2 puff INHALATION Q6H PRN PRN 02/20/18 Calcium Carbonate [[id number]] 500 mg PO DAILY 02/20/18 Escitalopram Oxalate [Lexapro] 20 mg PO DAILY 02/20/18 Hydroxyzine Pamoate [Vistaril] 100 mg PO TID PRN PRN 02/20/18 Metformin HCl [Glucophage] 500 mg PO BIDCM 02/20/18 Sennosides [Sybil-Tiffanie] 8.6 mg PO BID 02/20/18 Venlafaxine HCl [Venlafaxine HCl ER] 150 mg PO DAILY 02/20/18 Primary Care Physician: Esteban Phelps MD [Primary Care Provider] - Please follow up with your Primary Care Physician in: 1-2 weeks Disposition: Home Patient Condition:: Fair Medical Necessity - Tobacco Use Smoking Status: Current every day smoker - 1 pack/day cigarette tobacco usage. Tobacco Use: Cigarettes Meaningful Use Info Meaningful Use Diagnoses (Choose all that apply): None applicable Code Visit Inpatient E AND M: 99949 Disch Hosp 02/20/18 1808 <Electronically signed by Mohinder Sebastian MD> Date Mohinder Sebastian MD Cosigner Signature (if applicable): Date CC: Esteban Phelps MD; Mohinder Sebastian MD Signed DISCHARGE INSTRUCTION Observed: 02/20/2018 Status: F Source: URBANA 5:56 PM [facility] REPOSITORY [facility] Medical Records Department [address] [place] [address] Instructions for Home/Discharge Instructions 02/20/18 1748 MR#: [id number] Acct: [id number] Name: AFSANEH LOWE Ulises Rep #: [id number] : 1955 62 From: Mohinder Sebastian MD PCP: Esteban Phelps MD Status: ADM [facility] - Discharge Diagnoses Current Active Problems: Current Active and Chronic Problems Encephalopathy (Acute) Accident due to mechanical fall without injury (Acute) Anxiety and depression (Acute) Schizophrenia (Chronic) COPD (chronic obstructive pulmonary disease) (Chronic) Tobacco use (Chronic) Morbid obesity (Chronic) Reason(s) for Visit for Discharge Instructions: Metabolic encephalopathy secondary to medications You will use the following diet at home:: Cardiac Your food should be the consistency of: Regular Discharge Activity: Return to Normal Activity, May Not Drive, May not drive while taking narcotic pain medications. May resume sexual activity in: No Restrictions Call your doctor if you observe: Fever of 101 or Higher, Numbness or Tingling, Shortness of breath, Fainting spells, Chest pain, Increased palpitations (irregular heartbeat) Allergies/Adverse Reactions: Allergies sumatriptan [From Imitrex] Adverse Reaction (Verified 02/19/18 15:03) Vomiting sumatriptan succinate [From Imitrex] Adverse Reaction (Verified 02/19/18 15:03) Vomiting BEE STING Allergy (Uncoded 02/19/18 15:03) Anaphylaxis PAPER TAPE Adverse Reaction (Uncoded 02/19/18 15:03) Rash Medications to take at Discharge Ziprasidone HCl [Geodon] 80 mg PO BID 07/11/13 Pravastatin [Pravachol] 80 mg PO QHS 09/07/15 Aspirin [Aspirin, Baby] 81 mg PO DAILY@0800 03/11/16 Topiramate [Topiramate ER] 200 mg PO BID 05/29/16 Haloperidol 20 mg PO TID 05/21/17 Divalproex (ER) [Depakote ER] 250 mg PO BID 12/02/17 Gabapentin [Neurontin] 300 mg PO TID 30 Days #90 cap 12/02/17 Meloxicam 7.5 mg PO DAILY 12/02/17 Morphine Sulfate [Morphine Sulfate ER] 15 mg PO Q6H PRN PRN 12/02/17 Oxycodone HCl/Acetaminophen [Percocet 5-325] 1 tablet PO Q6H PRN PRN 12/02/17 Phenytoin Sodium Extended [Dilantin] 100 mg PO BID 12/02/17 Potassium Chloride 10 meq PO BID 12/02/17 Albuterol Inhaler [Ventolin Hfa] 2 puff INHALATION Q6H PRN PRN 02/20/18 Calcium Carbonate [[id number]] 500 mg PO DAILY 02/20/18 Escitalopram Oxalate [Lexapro] 20 mg PO DAILY 02/20/18 Hydroxyzine Pamoate [Vistaril] 100 mg PO TID PRN PRN 02/20/18 Metformin HCl [Glucophage] 500 mg PO BIDCM 02/20/18 Sennosides [Sybil-Tiffanie] 8.6 mg PO BID 02/20/18 Venlafaxine HCl [Venlafaxine HCl ER] 150 mg PO DAILY 02/20/18 Primary Care Physician: Esteban Phelps MD [Primary Care Provider] - Please follow up with your Primary Care Physician in: 1-2 weeks Test Results: Test results from this visit will be discussed in further detail at your follow-up appointment, if applicable. Proposed Discharge Date: 02/20/18 02/20/18 9251 <Electronically signed by Mohinder Sebastian MD> Date Mohinder Sebastian MD CC: Esteban Phelps MD BEDSIDE GLUCOSE Collected: 02/20/2018 Status: F Source: ERNA 4:18 PM [facility] REPOSITORY TYPE CODE TESTS RESULT OUT OF REFERENCE UNITS RANGE LAB L501.080 70-110 mg/dL High BEDSIDE GLU 111 Result Comment: MANAGEMENT OF PATIENT CARE PER NURSING PROTOCOL Performed By: #### L501.080 #### [facility] Point of Care [address] [place] [address] BEDSIDE GLUCOSE Collected: 02/20/2018 Status: F Source: ERNA 11:51 AM [facility] REPOSITORY TYPE CODE TESTS RESULT OUT OF RANGE REFERENCE UNITS LAB L501.080 70-110 mg/dL Normal BEDSIDE GLU 107 Result Comment: MANAGEMENT OF PATIENT CARE PER NURSING PROTOCOL Performed By: #### L501.080 #### [facility] Point of Care [address] [place] [address] BEDSIDE GLUCOSE Collected: 02/20/2018 Status: F Source: ERNA 6:53 AM [facility] REPOSITORY TYPE CODE TESTS RESULT OUT OF RANGE REFERENCE UNITS LAB L501.080 70-110 mg/dL Normal BEDSIDE GLU 96 Result Comment: MANAGEMENT OF PATIENT CARE PER NURSING PROTOCOL Performed By: #### L501.080 #### [facility] Point of Care [address] [place] [address] HISTORY AND PHYSICAL Observed: 02/19/2018 Status: F Source: ERNA EXAM 11:40 PM [facility] REPOSITORY [facility] Medical Records Department [address] [place] [address] History and Physical 02/19/181916 MR#: [id number] Acct: [id number] Name: AFSANEH LOWE Ulises Rep #: [id number] : 1955 62 From: Anita Keith PCP: Esteban Phelps MD Status: ADM [facility] Y Location: [place] [address] Problem List (1) Encephalopathy Status: Acute (2) Accident due to mechanical fall without injury Status: Acute Qualifiers: Encounter type: initial encounter Qualified Code(s): W19.XXXA - Unspecified fall, initial encounter (3) Anxiety and depression Status: Acute (4) Schizophrenia Status: Chronic Qualifiers: Schizophrenia type: unspecified Qualified Code(s): F20.9 - Schizophrenia, unspecified (5) COPD (chronic obstructive pulmonary disease) Status: Chronic Qualifiers: COPD type: unspecified COPD Qualified Code(s): J44.9 - Chronic obstructive pulmonary disease, unspecified (6) Tobacco use Status: Chronic (7) Spondylosis of lumbar region without myelopathy or radiculopathy Status: Chronic (8) Diabetes Status: Chronic Qualifiers: Diabetes mellitus type: type 2 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 mellitus termite exterminator helper insulin use: without jail use Diabetes mellitus complication status: with unspecified complications Qualified Code(s): E11.8 - Type 2 diabetes mellitus with unspecified complications (9) Legal blindness Status: Chronic (10) HTN (hypertension) Status: Chronic Qualifiers: Hypertension type: essential hypertension Qualified Code(s): I10 - Essential (primary) hypertension (11) MVP (mitral valve prolapse) Status: Chronic (12) Morbid obesity Status: Chronic History of Present Illness Date of Admission: 02/19/18 Chief Complaint: Fall, hit head and neck The patient is a 62 y/o F w/ PMHx: Migraines, Morbid Obesity, Diabetes mellitus type II, HTN, HLD, Tobacco use, Legal Blindness, Chronic lumbar back pain w/ radiculopathy, Chronic COPD, Seizure disorder, Anxiety and Depression/Schizophrenia/Bipolar who presents from [facility] to the [facility] ED on 02/19/18 with history of being evaluated by her therapist at [facility] for routine Schizophrenia evaluation and during the visit noted to have been acting peculiarly with fall in the office hitting her right lateral face above the eye upon the fall with no loss of consciousness prompting ED referral. Family contacted and noted that patient has been mistaking her medications and has not been compliant with her psychiatric regimen. Requested upon discussion with ED UDS and ETOH level be obtained. Otherwise, ED work-up included T 98.1, heart rate 89, BP 136/81, respiratory rate 16, 97% on room air, unremarkable CBC, unremarkable BMP, UA unremarkable, phenytoin level 7.5, valproic acid level 60, CT head with mild soft tissue swelling otherwise no acute intracranial findings, CT cervical spine with no evidence of trauma with minimal degenerative changes. Past Medical History Past Medical History (Chronic Problems): Chronic Problems Schizophrenia (Chronic) COPD (chronic obstructive pulmonary disease) (Chronic) Tobacco use (Chronic) Morbid obesity (Chronic) Tobacco user (Chronic) Spondylosis of lumbar region without myelopathy or radiculopathy (Chronic) Diabetes (Chronic) Legal blindness (Chronic) HTN (hypertension) (Chronic) MVP (mitral valve prolapse) (Chronic) Allergies sumatriptan [From Imitrex] Adverse Reaction (Verified 02/19/18 15:03) Vomiting sumatriptan succinate [From Imitrex] Adverse Reaction (Verified 02/19/18 15:03) Vomiting BEE STING Allergy (Uncoded 02/19/18 15:03) Anaphylaxis PAPER TAPE Adverse Reaction (Uncoded 02/19/18 15:03) Rash Home Medications: Ambulatory Orders Medication Instructions Recorded Ziprasidone HCl [Geodon] 80 mg PO BID 07/11/13 Surgical History: - - Cholecystectomy bilateral knee replacement versus arthroscopic surgery. Psychiatric History: Anxiety, Depression, Schizophrenia BAKER PAINT History: No pertinent BAKER PAINT history Lives: Alone Smoking Status: Current every day smoker - 1 pack/day cigarette tobacco usage. Tobacco Use: Cigarettes Alcohol: None Drugs: None - *Family History Paternal History Items: - - Patient notes a maternal and paternal family history of heart disease including hypertension and diabetes. Maternal History Items: - - Patient notes a maternal and paternal family history of heart disease including hypertension and diabetes. Review of Systems Constitutional: Reports: Malaise, Weakness, Fatigue. Denies: Chills, Fever, Weight Change HEENT: Denies: Head Aches, Sinus Congestion, Sinus Drainage Cardiovascular: Denies: Chest Pain, Palpitations Respiratory: Reports: Shortness of breath upon exertion. Denies: Cough, Shortness of breath at rest, Sputum production Gastrointestinal: Denies: Abdominal Pain, Nausea, Vomiting Genitourinary: Denies: Dysuria Musculoskeletal: Reports: Back Pain. Denies: Joint Pain, Joint Tenderness Skin: Reports: Skin Changes. Denies: Rash, Wounds Neurological: Reports: Confusion. Denies: Focal weakness, Numbness, Tingling Psychiatric: Reports: Anxiety, Depression. Denies: Homicidal Ideations, Suicidal Ideations Hematologic/ Lymphatic: Denies: Easy Bruising, Easy Bleeding VTE Information - Inpt Only VTE Present on Admission: No VTE Mechan Device Prophylaxis: SCD's VTE Pharm Prophylaxis ordered?: Yes Patient Problems: Active and Suspected Problems Encephalopathy (Acute) Accident due to mechanical fall without injury (Acute) Anxiety and depression (Acute) Subjective: Seated upright in the ED bed, fatigued appearing but NAD, no acute complaints. Objective: Physical Examination: General: awake, alert, oriented x [address], year, month and cooperative, seated upright in the ED bed in no apparent distress. Skin: normal color, turgor, no icterus, cyanosis except small ecchymoses to the left lateral facies near the eye with a small laceration with no bleeding. HEENT: AT/NC except small bruise and laceration as noted in skin, EOMI, PERRLA, mildly dry MM, no carotid bruits or JVD noted. Lungs: Diminished BS BL, > bases, moderate effort, mild decrease BL bases, no rales, ronchi or wheezing. Heart: Regular rate and rhythm; no gallop, rub audible. Abdomen: soft, morbidly obese, NTTP, ND, normal BS, no HSM; however, habitus makes examination difficult. Extremities: no cyanosis, clubbing, BL LE ankle mild edema. Neurological: patient awake, alert, oriented x 3 as noted; cognitive function seems baseline intact compared also to prior visit evaluations; pupils equally reactive to light and accomodation; cranial nerves II-XII grossly normal, moving all 4 extremities, no focal deficits, strength moderately globally decreased. Psychiatric: affect appears flat, no acute evidence of depressive or anxiety feelings. - Physical Exam Vital Signs Temp Pulse Resp BP Pulse Ox 98.1 F 89 16 136/81 H 97 02/19/18 15:00 02/19/18 15:00 02/19/18 15:00 02/19/18 15:00 02/19/18 15:00 Oxygen Delivery Method Room Air Weight: 222 lb Body Mass Index (BMI) 40.6 Finger Stick Blood Glucose 120 Laboratory Tests Past 24 Hrs WBC 10.8 RBC 4.00 L Hgb 12.7 Hct 39.2 MCV 98.0 MCH 31.8 MCHC 32.4 RDW 13.0 WBC RBC Hgb Hct MCV MCH MCHC RDW RDW Differential Plt Count MPV Immature Gran % (Auto) Neut % (Auto) Lymph % (Auto) Gates % (Auto) Assessment/Plan All Active Problems Encephalopathy (Acute) Accident due to mechanical fall without injury (Acute) Anxiety and depression (Acute) Atypical right-sided chest pain (Acute) The patient is a 62 y/o F w/ PMHx: Migraines, Morbid Obesity, Diabetes mellitus type II, HTN, HLD, Tobacco use, Legal Blindness, Chronic lumbar back pain w/ radiculopathy, Chronic COPD, Seizure disorder, Anxiety and Depression/Schizophrenia/Bipolar who presents from [facility] to the [facility] ED on 02/19/18 with history of being evaluated by her therapist at [facility] for routine Schizophrenia evaluation and during the visit noted to have been acting peculiarly with fall in the office hitting her right lateral face above the eye upon the fall with no loss of consciousness prompting ED referral. (1) Encephalopathy, Suspected Toxic secondary to Pharmaceutical Errors, Medication misusage w/ Mechanical Fall: ED work-up included T 98.1, heart rate 89, BP 136/81, respiratory rate 16, 97% on room air, unremarkable CBC, unremarkable BMP, UA unremarkable, phenytoin level 7.5, valproic acid level 60, CT head with mild soft tissue swelling otherwise no acute intracranial findings, CT cervical spine with no evidence of trauma with minimal degenerative changes. UDS and EtOH level requested upon admission. Will admit to PCU given seizure history and unclear intake, maintain on seizure precautions, restart home medications pending UDS, EtOH, fall precautions, maintain on neuro checks. If need may consider AM Neurology consultation. May need (2) Chronic lumbar back pain w/ radiculopathy: Continue home morphine, oxycodone regimen once verified to prevent withdrawal pending also UDS. (3) Diabetes mellitus type II: No regimen listed, HgbA1c pending, ADA diet, accu checks w/ ISS. (4) Chronic COPD: ATC duonebs, PRN albuterol, HOB, IS parameters. (5) Morbid Obesity: Weight loss and lifestyle changes encouraged, nutrition consulted. (6) Tobacco Abuse: Encouraged cessation, inpatient consultation per RT, NR if desired. (7) Seizure disorder: Maintain on seizure precautions given fall history. Continue home Depakote, phenytoin and topiramate regimen. (8) Anxiety and Depression/Schizophrenia/Bipolar: Continue home Depakote, Haldol, venlafaxine, Geodon regimen. (9) Chronic Migraines: Continue home topiramate and depakote regimen. (10) Hyperlipidemia: Continue home statin regimen. (11) DVT Prophylaxis: SCDs, lovenox. Code Visit OBSV Maria Esther AND M: [id number] Initial observation care L3 02/19/18 2340 <Electronically signed by Anita Keith > Date Anita Keith Cosigner Signature: Date (if applicable) CC: Anita Keith; Esteban Phelps MD Signed BEDSIDE GLUCOSE Collected: 02/19/2018 Status: F Source: [place] 11:02 PM [facility] REPOSITORY TYPE CODE TESTS RESULT OUT OF RANGE REFERENCE UNITS LAB L501.080 70-110 mg/dL Normal BEDSIDE GLU 102 Result Comment: MANAGEMENT OF PATIENT CARE PER NURSING PROTOCOL Performed By: #### L501.080 #### [facility] Point of Care [address] [place] [address] EMERGENCY DEPARTMENT Observed: 02/19/2018 Status: F Source: [place] SUMMARY 7:37 PM [facility] REPOSITORY 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 Patient was at 180 at a mental health appointment for schizophrenia. They noticed slurred speech and leaning to her right side. When she stood up she fell and hit the left side of her head. She did not lose consciousness. No vomiting. Tetanus is up-to-date. She lives alone. She is a poor historian. Physical Examination: Vitals are stable. Patient is afebrile. Alert no acute distress. HEENT exam is unremarkable. Neck is nontender Lungs are clear and equal bilaterally. Heart is regular rate and rhythm. Abdomen is soft nontender nondistended. Back is nontender Extremities are unremarkable. Skin is warm and dry. Alert and oriented x2, normal strength and sensation, chronically blind Remainder of exam is unremarkable. Emergency Department Course and Treatment: EKG is sinus rate of 84 with no acute ischemic changes. CBC, chemistries unremarkable. Dilantin level 7.5, Depakote level 60. CT head shows no acute process. CT C-spine shows no fracture. Urinalysis is unremarkable. On reevaluation, her symptoms have improved. Her slurred speech and confusion have resolved. She is now alert and oriented x3. NIH is 0. Discussed with the hospitalist for observation. Disposition: Observation Impression: TIA This note was generated with [employer] dictation software. It may contain incorrect words, spelling, and punctuation that were not noted in review of the chart prior to signing ED Disposition - Plan for ED Patient: Chief Complaint: Fall Referrals: Esteban Phelps MD [Primary Care Provider] - What to do if you have Problems For any increased pain, shortness of breath, bleeding, nausea or vomiting, chest pain, or any unexpected problems, contact your Primary Care Provider. Call [facility] ([phone]) or report to the closest Emergency Room. Call 911 if necessary. 02/19/181936 <Electronically signed by Fernanda Kan MD> Date Fernanda Kan MD Cosigner Signature (If Indicated): Date CC: Esteban Phelps MD URINALYSIS, COMPLETE Collected: 02/19/2018 Status: F Source: [place] 5:50 PM [facility] REPOSITORY Order Comment: Order Date: 02/19/18 How was Urine Obtained? CLEAN CATCH TYPE CODE TESTS RESULT OUT OF RANGE REFERENCE UNITS LAB L400.3000 Yellow COLOR Normal Yellow LAB L400.3050 Clear Normal CLARITY Sl. Cloudy LAB L400.3200 Normal mg/dl Normal GLUCOSE, UR Normal LAB L400.3300 Negative mg/dL Normal BILIRUBIN URINE Negative LAB L400.3400 Negative mg/dl Normal KETONE UR Negative LAB L400.3465 1.002-1.030 Normal SP.GR. DIPSTX 1.010 LAB L400.3550 5.0 - 8.0 pH UR Normal 7.0 LAB L400.3600 Negative mg/dl PROT Normal DIPSTX Negative LAB L400.3700 Normal mg/dl Normal UROBILI Normal LAB L400.3750 Negative Normal NITRITE UR Negative LAB L400.3780 Negative /ul Normal OCCULT BLOOD-UR Negative LAB L400.3800 Negative /ul High LEUK 25 ESTERASE LAB L400.4050 0-5 /hpf WBC 0 Normal SEEN LAB L400.4100 0-5 /hpf 0 Normal RBC-UA SEEN LAB L400.4150 5-10 /hpf SQUAM Normal EPI 0-5 SEEN LAB L400.4300 None Seen /hpf 0 Normal BACTERIA SEEN LAB L400.4350 <or=2+ /hpf 0 Normal MUCUS, URINE SEEN Performed By: #### L400.0001 #### [facility] [address] [place], [place], [address] URINE DRUG SCREEN Collected: 02/19/2018 Status: F Source: ERNA [facility]) 5:50 PM [facility] REPOSITORY TYPE CODE TESTS RESULT OUT OF RANGE REFERENCE UNITS LAB L505.0075 TO BE Normal CONFIRMED Result Comment: CONFIRMATORY TESTING FOR ALL POSITIVE URINE DRUG SCREEN RESULTS WILL ONLY BE SENT OUT UPON PHYSICIAN ORDER. VISTA Urine Drug Screen methods provide only preliminary analytical test results. A more specific alternate chemical method must be used in order to obtain a confirmed analytical result. Gas chromatography/mass spectrometery (GC/MS) is the preferred confirmatory method. Clinical consideration and professional judgement should be applied to any drug of abuse test result, particularly when preliminary positive results are used. URINE TCA TESTING MUST BE ORDERED SEPARATELY. USE TEST MNEMONIC: [facility]CA LAB L505.5005 VISTA UDS PH 6 Normal LAB L505.5015 <1000 ng/mL AMPHETAMINES Normal NEGATIVE LAB L505.5025 < 200 ng/mL BARBITIURATES Normal NEGATIVE LAB L505.5035 < 200 ng/mL BENZODIAZIPINE Normal NEGATIVE LAB L505.5045 < 300 ng/mL COCAINE Normal NEGATIVE LAB L505.5055 < 500 ng/mL ECSTACY Normal NEGATIVE LAB L505.5065 < 300 ng/mL METHADONE Normal NEGATIVE LAB L505.5075 < 300 ng/mL OPIATES Normal NEGATIVE LAB L505.5085 < 25 ng/mL PCP Normal NEGATIVE LAB L505.5095 < 50 ng/mL THC Normal NEGATIVE Performed By: #### L505.5000 #### [facility] [address] [place], [place], [address] CBC W/DIFF, AUTOMATED Collected: 02/19/2018 Status: F Source: [place] 4:40 PM [facility] REPOSITORY TYPE CODE TESTS RESULT OUT OF RANGE REFERENCE UNITS LAB L100.1000 4.4-11.0 K/mm3 Normal WBC 10.8 LAB L100.1200 4.2-5.4 M/mm3 Low RBC 4.00 LAB L100.1300 12.0-15.0 g/dl Normal HGB 12.7 LAB L100.1400 37-47 % Normal HCT 39.2 LAB L100.1500 81-99 fL Normal MCV 98.0 LAB L100.1600 27.0-32.0 pg Normal MCH 31.8 LAB L100.1700 32-36 g/gl Normal MCHC 32.4 LAB L100.1810 11.6-14.6 % Normal RDW CV 13.0 LAB L100.1820 35.1-43.9 fl High RDW SD 45.6 LAB L100.1900 150-450 K/mm3 Normal PLT 249 LAB L100.2000 6.2-12.0 fl Normal MPV 10.5 LAB L100.2100 47-70 % Normal NEUT% 60.1 LAB L100.2200 19-41 % Normal LY% 25.8 LAB L100.2300 0-10 % High MONO% 10.1 LAB L100.2400 0-5 % Normal EO% 3.4 LAB L100.2500 0-1 % Normal BASO% 0.4 LAB L100.2550 0.0-0.9 % Normal IM GRAN % 0.200 Result Comment: IG% - Immature Granulocytes (promyelocytes, myelocytes and metamyelocytes) > 1% indicates that a LEFT SHIFT is Present. LAB L100.2620 2.0-7.7 X10 3/uL Normal Absolute Neut 6.5 LAB L100.2720 0.83-4.51 X10 3/ul Normal Absolute Lymph 2.79 Performed By: #### L100.0100 #### [facility] [address] [facility] [place], [place], [id number] BASIC METABOLIC Collected: 02/19/2018 Status: F Source: [place] PROFILE (BMP) 4:40 PM [facility] REPOSITORY TYPE CODE TESTS RESULT OUT OF RANGE REFERENCE UNITS LAB L501.0100 74-106 mg/dL Normal GLU 103 Result Comment: Fasting Glucose result from 100 to 125 mg/dL suggests IMPAIRED HOMEOSTASIS per A.D.A. criteria. Please note revised GLUCOSE reference range effective 2017. LAB L501.1000 7-18 mg/dL Normal BUN 15 LAB L501.1100 0.55-1.02 mg/dL Normal CREAT,SERUM 0.78 Result Comment: The validity of the calculated GFR AND GFRAA in patients over 70 years has not been determined. Clinical correlation is essential. LAB L501.1110 >60 mL/min Normal EST GFR 80 Result Comment: Non- GFR Calc LAB L501.1115 >60 mL/min Normal EST GFR - AA 96 Result Comment: GFR Calc LAB L501.1255 ml/min Normal Estimated CRCL 59.90 LAB L501.1300 10-20 RATIO Normal BUN/CRE 19.2 LAB L501.2200 8.5-10 mg/dL Normal .1 CA 8.5 LAB L501.5300 136-14 mmol/L Normal 5 NA 143 LAB L501.5600 3.5-5. mmol/L Normal 1 K 3.6 LAB L501.5900 98-107 mmol/L Normal CL 106 LAB L501.6100 21.0-3 mmol/L Normal 2.0 CO2 31.0 LAB L501.6200 5-15 Normal GAP 6 Performed By: #### L500.2500 #### [facility] [address] [facility] [facility] [place], [place], [address] PHENYTOIN (DILANTIN) Collected: 02/19/2018 Status: F Source: E[place] LEVEL 4:40 PM [facility] REPOSITORY TYPE CODE TESTS RESULT OUT OF REFERENCE UNITS RANGE LAB L501.7700 10.0-20.0 mL Low PHENYTOIN 7.5 Performed By: #### L501.7700, L501.8100 #### [facility] [address] [place], [place], [id number] VALPROIC ACID Collected: 02/19/2018 Status: F Source: ERNA (DEPAKENE) LEVEL 4:40 PM [facility] REPOSITORY TYPE CODE TESTS RESULT OUT OF RANGE REFERENCE UNITS LAB L501.8100 50-100 ug/mL Normal VALPROIC ACID 60 Performed By: #### L501.7700, L501.8100 #### [facility] [address] [place], [address] ALCOHOL, BLOOD Collected: 02/19/2018 Status: F Source: E[place] (MEDICAL)-SERUM 4:40 PM [facility] REPOSITORY TYPE CODE TESTS RESULT OUT OF RANGE REFERENCE UNITS LAB L501.9100 mg/dL Normal SERUM 3.0 ETOH Result Comment: The serum:whole blood ethanol ratio is approximately 1.14 and varies slightly with hematocrit. Medical Alcohol reference interval and critical value in non-tolerant individuals; 50 - 100 Impairment 100 Intoxication 100 - 250 Severe Poisoning 250 - 400 Deep/possible fatal coma Performed By: #### L501.9100 #### [facility] [address] [place], [place], [address] MAGNESIUM Collected: 02/19/2018 Status: F Source: E[place] 4:40 PM [facility] REPOSITORY TYPE CODE TESTS RESULT OUT OF RANGE REFERENCE UNITS LAB L501.5200 1.6-2.6 mg/dL Normal MG 1.9 Performed By: #### L501.5200 #### [facility] [address] [place], [address] HEMOGLOBIN A1C Collected: 02/19/2018 Status: F Source: E[place] 4:40 PM [facility] REPOSITORY TYPE CODE TESTS RESULT OUT OF RANGE REFERENCE UNITS LAB L501.9985 4.2-6.3 % Normal HGB A1C 5.2 Performed By: #### L501.9985 #### [facility] [address] [place], [address] BRAIN/HEAD WITHOUT Observed: 02/19/2018 Status: F Source: [place] CONTRAST 4:13 PM [facility] REPOSITORY [facility] Imaging Services [address] [place] [address] Brain/Head without Contrast MR#: [id number] Acct: [id number] Name: AFSANEH LOWE Rep #: [id number] : 1955 F 62 From: Sonal Bedolla MD PCP: Esteban Phelps MD Status: REG ER Study: Brain/Head without Contrast Date of Exam: 02/19/18 Exam# [id number] Ordering Dr: Fernanda Kan MD STUDY: CT BRAIN WITHOUT CONTRAST REASON FOR EXAM: Female, 62 years old. Fell, hit head. RADIATION DOSAGE (If Supplied By Facility): CTDIvol = ( 44.99 ) mGy, DLP = ( 796.11 ) mGycm TECHNIQUE: Transaxial CT imaging of the brain was performed without administration of intravenous contrast material. Individualized dose optimization techniques were used for this CT. COMPARISON: 05/16/2017. FINDINGS: There is mild left frontal soft tissue swelling. Normal calvarium. Normal size ventricles and extra-axial spaces for the patient's age. Normal white matter tracts of the cerebral hemispheres. Normal basal ganglia and thalami. Normal brainstem. Normal cerebellum. There is no intracranial hemorrhage. There are no findings of an acute ischemic infarction. Normal visualized paranasal sinuses. CT/Brain/Head without Contrast IMPRESSION: Mild soft tissue swelling. No intracranial findings. Electronically Signed: Sonal Bedolla MD at 17:54 EDT Tel , Service support , CC: Fernanda Kan MD; Esteban Phelps MD Boning Room Worker: Signed SPINE CERVICAL Observed: 02/19/2018 Status: F Source: [place] WITHOUT CONTRAS 4:13 PM [facility] REPOSITORY [facility] Imaging Services [address] [place] [address] Spine Cervical without Contras MR#: [id number] Acct: [id number] Name: AFSANEH LOWE Rep #: [id number] : 1955 F 62 From: Sonal Bedolla MD PCP: Esteban Phelps MD Status: REG ER Study: Spine Cervical without Contras Date of Exam: 02/19/18 Exam# [id number] Ordering Dr: Fernanda Kan MD STUDY: CT CERVICAL SPINE WITHOUT CONTRAST REASON FOR EXAM: Female, 62 years old. Fell, hit head. RADIATION DOSAGE (If Supplied By Facility): CTDIvol = ( 16.38 ) mGy, DLP = ( 326.54 ) mGycm TECHNIQUE: High resolution transaxial imaging was performed without contrast material. Sagittal and coronal images were reconstructed. Individualized dose optimization techniques were used for this CT. COMPARISON: None FINDINGS: Normal craniovertebral junction. Normal anterior atlantoaxial articulation. Normal odontoid process. Normal cervical lordosis. Normal vertebral bodies and posterior osseous elements. C2-3: Normal endplates. Normal disc height and morphology. Normal central canal and intervertebral neuroforamina. C3-4: Normal endplates. Normal disc height and morphology. Normal central canal and intervertebral neuroforamina. C4-5: Normal endplates. Normal disc height and morphology. Normal central canal and intervertebral neuroforamina. There is mild facet hypertrophy, greater on the right. C5-6: Normal endplates. Normal disc height and morphology. Normal central canal and intervertebral neuroforamina. There is mild facet hypertrophy, greater on the right. C6-7: Normal endplates. Normal disc height and morphology. Normal central canal and intervertebral neuroforamina. C7-T1: Normal endplates. Normal disc height and morphology. Normal central canal and intervertebral neuroforamina. Normal visualized soft tissue structures. CT/Spine Cervical without Contras IMPRESSION: 1. No evidence of trauma. 2. Minimal degenerative changes. Electronically Signed: Sonal Bedolla MD at 18:07 EDT Tel , Service support , CC: Fernanda Kan MD; Esteban Phelps MD Boning Room Worker: Signed PROGRESS Observed: 02/19/2018 Status: COMPLETED Source: [place] 11:36 AM [facility] REPOSITORY O ID: [id number] Author: Salinas Vigil Service: (none) Author Type: Physician Type: Progress Notes Filed: 02/19/2018 11:48 AM Note Text: Subjective: Patient presents to clinic c/o painful toenails. They state that the nails are especially painful with shoe gear and pressure. Patient states that nails 2-5 b/l are painful. Patient admits to being diabetic and states that their blood sugar was 129 mg/dL this AM. Patient reports that 2 months ago she injured her left foot. She states she kicked the end of bed which resulted in wound requiring stitches. She thinks she healed without issue. No other pedal complaints at this time. Patient states no change in medications or medical history since last visit. Objective: Patient presents to clinic ambulating in diabetic shoes Vasc: DP and PT pulses are vascular bilateral. CFT is less than 5 seconds bilateral. Skin temperature is warm to cool proximal to distal bilateral. There is no edema or varicosities noted. Neuro: Protective sensation is intact to the foot and toes when tested with the 5.07 SWM bilateral. Vibratory sensation is decreased at the hallux IPJ bilateral. The hallux is downgoing bilateral. Derm: Nails 2-5 b/l are painful, discolored-yellow, thick, crumbly, dystrophic and with subungal debris. B/l hallux toenails have been removed but small spicule formation is present. Skin is of normal turgor, texture and hair growth is present bilateral. There are no hyperkeratosis, ulcerations, scars, verruca or other lesions noted. Ortho: Muscle strength is 5/5 for all pedal groups tested. Ankle joint DF is full with the knee extended with no pain or crepitus noted. 1st MPJ ROM is full bilateral. Assessment: (B35.1) Onychomycosis (primary encounter diagnosis) (M79.675) Pain in toe of left foot (M79.674) Pain in toe of right foot (E11.49) Other diabetic neurological complication associated with type 2 diabetes mellitus (HCC) Plan: Patient was seen and evaluated. Nails 2-5 bilateral were debrided in length and thickness. No wounds from left 2nd toe. Continue with lotion to feet Patient was instructed on the continued importance of diabetic foot care along with proper diet and keeping their blood sugar under control to prevent complications. Patient is to RTC in 3-4 months. LAURI MorenoOV Observed: 02/19/2018 Status: COMPLETED Source: [place] 11:10 AM [facility] REPOSITORY Office Visit (PODIWS) AFSANEH LOWE ([id number]) 1955 F KITAD Date Time Provider Department 02/19/18 11:10 AM SALINAS VIGIL PODBRET During your visit today, we recorded the following information about you: Joanna De León Ma 02/19/2018 11:48 AM Signed AMB ROOMING INTAKE FLOWSHEET DATA Risk Screening Do you have concerns about personal safety or safety in the home?: No Patient here for DM2 Nail Care. She is due for Health Maintenance Diabetic Foot Exam. She has no complaints. Patient reports home blood glucose reading at 129 mg/dL this AM. Joanna Vigil DPM 02/19/2018 11:48 AM Signed Subjective: Patient presents to clinic c/o painful toenails. They state that the nails are especially painful with shoe gear and pressure. Patient states that nails 2-5 b/l are painful. Patient admits to being diabetic and states that their blood sugar was 129 mg/dL this AM. Patient reports that 2 months ago she injured her left foot. She states she kicked the end of bed which resulted in wound requiring stitches. She thinks she healed without issue. No other pedal complaints at this time. Patient states no change in medications or medical history since last visit. Objective: Patient presents to clinic ambulating in diabetic shoes Vasc: DP and PT pulses are vascular bilateral. CFT is less than 5 seconds bilateral. Skin temperature is warm to cool proximal to distal bilateral. There is no edema or varicosities noted. Neuro: Protective sensation is intact to the foot and toes when tested with the 5.07 SWM bilateral. Vibratory sensation is decreased at the hallux IPJ bilateral. The hallux is downgoing bilateral. Derm: Nails 2-5 b/l are painful, discolored-yellow, thick, crumbly, dystrophic and with subungal debris. B/l hallux toenails have been removed but small spicule formation is present. Skin is of normal turgor, texture and hair growth is present bilateral. There are no hyperkeratosis, ulcerations, scars, verruca or other lesions noted. Ortho: Muscle strength is 5/5 for all pedal groups tested. Ankle joint DF is full with the knee extended with no pain or crepitus noted. 1st MPJ ROM is full bilateral. Assessment: (B35.1) Onychomycosis (primary encounter diagnosis) (M79.675) Pain in toe of left foot (M79.674) Pain in toe of right foot (E11.49) Other diabetic neurological complication associated with type 2 diabetes mellitus (HCC) Plan: Patient was seen and evaluated. Nails 2-5 bilateral were debrided in length and thickness. No wounds from left 2nd toe. Continue with lotion to feet Patient was instructed on the continued importance of diabetic foot care along with proper diet and keeping their blood sugar under control to prevent complications. Patient is to RTC in 3-4 months. Salinas Vigil DPM Referring Provider: ESTEBAN PHELPS [[id number]] Allergies As of Date: 02/19/2018 Noted Allergy Reaction BEE STING 10/10/2012 10 - Anaphylaxis BETADINE (POVIDONE-IODINE) 12/17/2013 16 - Unknown IMITREX (SUMATRIPTAN SUCCINATE) 12/17/2005 11 - Vomiting TAPE (ADHESIVE TAPE (ROSINS)) 09/25/2012 14 - Other: See Comments Comments: Patients states paper tape makes her blister Date Reviewed: 01/22/2018 Reviewed by: Annmarie Cruz RN - Fully Assessed Reason for Visit: Diabetic Foot Care [916] Primary Visit Diagnosis:Onychomycosis [B35.1] Other Visit Diagnoses:Pain in toe of left foot [M79.675] Pain in toe of right foot [M79.674] Other diabetic neurological complication associated with type 2 diabetes mellitus (HCC) [E11.49] Prescriptions as of 02/19/2018 Sig: MAGNESIUM OXIDE 400 MG (241.3* TAKE 1 TABLET BY MOUTH DAILY FENTANYL 12 MCG/HR TRANSDERMA* Apply 1 Patch as directed ace* GABAPENTIN 300 MG CAPSULE Take 300 mg by mouth three ti* POTASSIUM CHLORIDE ER 10 MEQ * TAKE 1 CAPSULE BY MOUTH TWICE* HALOPERIDOL 20 MG TABLET HYDROXYZINE PAMOATE 25 MG CAP* MELOXICAM 15 MG TABLET DIVALPROEX ER 250 MG TABLET,E* METHOCARBAMOL 500 MG TABLET COMPOUNDED PRESCRIPTION ADULT DIAPERS NEEDS MORE ABSO* COMPOUNDED PRESCRIPTION Diabetic booster 2 cases per* PRAVASTATIN 80 MG TABLET TAKE 1 TABLET BY MOUTH AT BED* NEBULIZER ACCESSORIES KIT Dispense new tubing, medicati* ALBUTEROL SULFATE HFA 90 MCG/* INHALE 2 PUFFS BY MOUTH EVERY* COMPOUNDED PRESCRIPTION Washable [place] Bed pads Change* OYSTER SHELL CALCIUM-VITAMIN * TAKE 1 TABLET BY MOUTH DAILY BLOOD SUGAR DIAGNOSTIC STRIPS Test blood sugar(s) 4 times d* LANCETS 33 GAUGE Test blood sugars four times * NUTRITION TX GLU INTOL,LAC-FR* Take 1 Each by mouth once qiana* ALBUTEROL SULFATE 2.5 MG/3 ML* Use 3 mL via nebulizer every * EPINEPHRINE 0.3 MG/0.3 ML INJ* as needed for allergic anaphy* OLOPATADINE 0.1 % EYE DROPS USE 1 DROP IN BOTH EYES TWICE* PHENYTOIN SODIUM EXTENDED 100* Takes 2 capsules 3 times per * Patient taking differently: Take 200 mg by mouth twice da* TOPIRAMATE 50 MG TABLET Take 1 tablet by mouth twice * Patient taking differently: Take 200 mg by mouth twice da* NITROGLYCERIN 0.4 MG SUBLINGU* Dissolve 1 tablet under the t* VENLAFAXINE ER 75 MG CAPSULE,* Take 2 capsules by mouth once* ALCOHOL PREP PADS USE TWICE DAILY RIZATRIPTAN 10 MG TABLET Take 10 mg by mouth as needed* MUPIROCIN 2 % TOPICAL OINTMENT Apply 1 application to affect* ASPIRIN 81 MG TABLET,DELAYED * Take 1 tablet by mouth once d* SILVER SULFADIAZINE 1 % TOPIC* Apply 1 application to affect* * ZIPRASIDONE 80 MG CAPSULE Take 1 capsule by mouth twice* Problem List As Of Date 02/19/2018 Noted Resolved MITRAL VALVE DISORDER [I05.9] DIARRHEA NOS [R19.7] INVALID FOR* Benign neoplasm of colon [D12.6] INVALID FOR* Benign neoplasm of rectum and anal canal [D12.8*INVALID FOR* GERD (gastroesophageal reflux disease) [K21.9] INVALID FOR* Hiatal hernia [K44.9] INVALID FOR* Right rotator cuff tear [M75.101] INVALID FOR* Paranoid schizophrenia (HCC) [F20.0] INVALID FOR* Blepharospasm [G24.5] INVALID FOR* Hypertension [I10] INVALID FOR* Hyperlipidemia [E78.5] INVALID FOR* Intractable migraine without aura [G43.019] INVALID FOR*03/13/2016 Intractable migraine with aura [G43.119] INVALID FOR* 8.2.3 Analgesic overuse headache [F55.2] [339.3*INVALID FOR* Constipation [K59.00] Abdominal pain, other specified site [R10.9] Kidney stones [N20.0] Diabetes mellitus type 2, controlled, without c*INVALID FOR* Osteoarthritis, multiple sites [M15.9] INVALID FOR* Shoulder pain [M25.519] INVALID FOR* Chronic knee pain [M25.569, G89.29] INVALID FOR* S/P TKR (total knee replacement) [Z96.659] INVALID FOR* Calculus of gallbladder with chronic cholecysti*INVALID FOR* Umbilical hernia without obstruction or gangren*INVALID FOR* Family history of ischemic heart disease [Z82.4*INVALID FOR* Opioid abuse [F11.10] INVALID FOR* More... 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] INVALID FOR* Chronic right shoulder pain [M25.511, G89.29] INVALID FOR* Balance disorder [R26.89] INVALID FOR* Use of cane as ambulatory aid [Z99.89] INVALID FOR* Impaired vision [H54.7] INVALID FOR* Obesity, Class III, BMI 40-49.9 (morbid obesity*INVALID FOR* Encounter Status:Closed by SALINAS VIGIL DPM on 02/19/18 PROGRESS Observed: 02/19/2018 Status: COMPLETED Source: [place] 11:08 AM [facility] [place] REPOSITORY HNO ID: [id number] Author: Joanna De León Ma Service: (none) Author Type: (none) Type: Progress Notes Filed: 02/19/2018 11:48 AM Note Text: AMB ROOMING INTAKE FLOWSHEET DATA Risk Screening Do you have concerns about personal safety or safety in the home?: No Patient here for DM2 Nail Care. She is due for Health Maintenance Diabetic Foot Exam. She has no complaints. Patient reports home blood glucose reading at 129 mg/dL this AM. Joanna De León Ma HIP, UNI W/ PELVIS Observed: 02/07/2018 Status: F Source: URBANA 2-3 VIEWS 4:09 PM [facility] REPOSITORY [facility] Imaging Services [address] [place] [id number] HIP, UNI W/ Pelvis 2-3 Views MR#: [id number] Acct: [id number] Name: AFSANEH LOWE Rep #: [id number] : 1955 F 62 From: Michael Giordano MD PCP: Esteban Phelps MD Status: REG CLI Study: HIP, UNI W/ Pelvis 2-3 Views Date of Exam: 02/07/18 Exam# [id number] Ordering Dr: Krissy Gillette MD STUDY: X-RAY - PELVIS AND LEFT HIP REASON FOR EXAM: Female, 62 years old. Left hip pain TECHNIQUE: Radiological exam, hip, unilateral, with pelvis when performed; 2 or 3 views. COMPARISON: None. FINDINGS: There is a non-specific bowel gas pattern. Normal visualized soft tissue structures. Severe degenerative narrowing of the right hip. Normal bilateral iliac wings, sacroiliac joints and visualized sacrum. Normal bilateral superior and inferior pubic rami. Normal pubic symphysis. Normal bilateral ischial tuberosities. Normal visualized femoral head. There is osteoarthritic spur formation of the acetabular rim. There is mild articular joint space narrowing of the hip. RAD/HIP, UNI W/ Pelvis 2-3 Views IMPRESSION: Degenerative findings of the hips. Electronically Signed: Michael Giordano MD at 17:55 EDT , Service support , CC: Esteban Phelps MD; Krissy Gillette M.D. Boning Room Worker: Signed URINE DRUG SCREEN Collected: 02/07/2018 Status: F Source: ERNA (VISTA) 3:49 PM [facility] REPOSITORY Order Comment: List of Drugs Taken or Suspected? . TYPE CODE TESTS RESULT OUT OF RANGE REFERENCE UNITS LAB L505.0075 TO BE Normal CONFIRMED Result Comment: CONFIRMATORY TESTING FOR ALL POSITIVE URINE DRUG SCREEN RESULTS WILL ONLY BE SENT OUT UPON PHYSICIAN ORDER. VISTA Urine Drug Screen methods provide only preliminary analytical test results. A more specific alternate chemical method must be used in order to obtain a confirmed analytical result. Gas chromatography/mass spectrometery (GC/MS) is the preferred confirmatory method. Clinical consideration and professional judgement should be applied to any drug of abuse test result, particularly when preliminary positive results are used. URINE TCA TESTING MUST BE ORDERED SEPARATELY. USE TEST MNEMONIC: [facility] LAB L505.5005 VISTA UDS PH 6 Normal LAB L505.5015 <1000 ng/mL AMPHETAMINES Normal NEGATIVE LAB L505.5025 < 200 ng/mL BARBITIURATES Normal NEGATIVE LAB L505.5035 < 200 ng/mL BENZODIAZIPINE Normal NEGATIVE LAB L505.5045 < 300 ng/mL COCAINE Normal NEGATIVE LAB L505.5055 < 500 ng/mL ECSTACY Normal NEGATIVE LAB L505.5065 < 300 ng/mL METHADONE Normal NEGATIVE LAB L505.5075 < 300 ng/mL OPIATES Normal NEGATIVE LAB L505.5085 < 25 ng/mL PCP Normal NEGATIVE LAB L505.5095 < 50 ng/mL THC Normal NEGATIVE Performed By: #### L505.5000 #### [facility] [address], [address] MISCELLANEOUS LAB Collected: 02/07/2018 Status: F Source: E[place] PROCEDURE 3:49 PM [facility] REPOSITORY Order Comment: Test(s) Ordered: [id number] TYPE CODE TESTS RESULT OUT OF RANGE REFERENCE UNITS LAB L801.1541 Normal [facility] [place] Result Comment: [id number] 6+OXYCODONE-BUND (ng/mL) DRUG RESULT SCREEN CUTOFF ____ Amphetamines,Urine Negative ng/mL 1000 Amphetamine test includes Amphetamine and Methamphetamine. Barbiturates Negative ng/mL 200 Benzodiazepines Negative ng/mL 200 Cannabinoid Negative ng/mL 20 Cocaine (Metab) Negative ng/mL 300 Opiates Negative ng/mL 300 Opiates test includes Codeine, Morphine, Hydromorphone, Hydrocodone. Oxycodone/Oxymorphone,Urine Negative ng/mL 300 Test includes Oxydodone and Oxymorphone. TESTING PERFORMED AT [facility]. ORIGINAL REPORT ON FILE IN LAB CONTAINS ADDITIONAL TEST SITE INFORMATION. Performed By: #### L801.1541 #### [facility] [address], [address] ALBUMIN/CREAT RATIO Collected: 01/29/2018 Status: F Source: [place] 9:08 AM [facility] REPOSITORY TYPE CODE TESTS RESULT OUT OF REFERENCE UNITS RANGE LAB UCRR 20-300 mg/dL 72.3 Creatinine,Ur ine,Ran LAB UALBR 0.0-23.0 mg/L <12.0 Albumin Urine Random LAB UALBCR 0-30 mg/g Not Albumin/Creat calculated Ratio Performed By: #### UACR #### [facility] [address] [place], [place] [address] BASIC METABOLIC PANL Collected: 01/29/2018 Status: F Source: [place] 9:07 AM [facility] REPOSITORY TYPE CODE TESTS RESULT OUT OF REFERENCE UNITS RANGE LAB GLU 74-99 mg/dL High Glucose 108 Result Comment: The [place] Diabetes Association (ADA) provides guidance for cutoff values for fasting glucose and random glucose. The ADA defines fasting as no caloric intake for at least 8 hours. Fas ting plasma glucose results between 100 to 125 mg/dL indicate increased risk for diabetes (prediabetes). Fasting plasma glucose results greater than or equal to 126 mg/dL meet the criteria for diagnosis of diabetes. In the absence of unequivocal hyperglycemia, results should be confirmed by repeat testing. In a patient with classic symptoms of hyperglycemia or hyperglycemic crisis, random plasma glucose results greater than or equal to 200 mg/dL meet the criteria for diagnosis of diabetes. Reference: Standards of Medical Care in Diabetes 2016, [place] Diabetes Association. Diabetes Care. 2016.39(Suppl 1). LAB BUN 7-21 mg/dL BUN 8 LAB CRET 0.58-0.96 mg/dL Creatinine 0.69 LAB NA 136-144 mmol/L Sodium 136 LAB K 3.7-5.1 mmol/L Potassium 4.2 LAB CL 97-105 mmol/L Chloride 100 LAB CO2 22-30 mmol/L CO2 Low 21 LAB AGAP 9-18 mmol/L Anion Gap 15 LAB CA 8.5-10.2 mg/dL Calcium, Total 9.4 LAB GFRAA eGFR- Amer. >60 LAB GFRNAA . eGFR-All Other Races >60 Result Comment: eGFR (Estimated GFR) Units of measure: mL/min/1.73 meters squared eGFR is derived from the reexpressed MDRD Study equation using the following parameters: serum creatinine, age, gender and race. The creatinine assay has been calibrated to be traceable to IDMS. An eGFR <60 mL/min/1.73m2 for >3 months is consistent with chronic kidney disease. Refer to KDOQI guidelines for clinical interpretation. In patients with unstable renal function, e.g. those with acute kidney injury, the eGFR may not accurately reflect actual GFR. Performed By: #### BMP, LIPB, HBA1C #### [facility] [address] [place] [id number] LIPID PANEL, BASIC Collected: 01/29/2018 Status: C Source: [place] 9:07 AM [facility] REPOSITORY TYPE CODE TESTS RESULT OUT OF REFERENCE UNITS RANGE LAB CHOL <200 mg/dL Cholesterol 151 Result Comment: <200 mg/dL, Desirable 200-239 mg/dL, Borderline high >239 mg/dL, High LAB TRIGLY <150 mg/dL Triglyceride 101 Result Comment: <150 mg/dL, Normal 150-199 mg/dL, Borderline high 200-499 mg/dL, High >499 mg/dL, Very high LAB HDL >39 mg/dL HDL-Cholesterol 44 Result Comment: 40-59 mg/dL, Acceptable >59 mg/dL, High: Negative risk factor for coronary heart disease <40 mg/dL, Low: Positive risk factor for coronary heart disease LAB LDL <100 mg/dL LDL-Cholesterol 87 Result Comment: <100 mg/dL, Optimal 100-129 mg/dL, Near optimal/above optimal 130-159 mg/dL, Borderline high 160-189 mg/dL, High >189 mg/dL, Very high Secondary prevention optimal LDL Cholesterol levels are recommended to be < 70 mg/dL LAB NONHDL <130 mg/dL Non HDL Cholesterol 107 Result Comment: <130 mg/dL, Optimal 130-159 mg/dL, Near optimal/above optimal 160-189 mg/dL, Borderline high 190-219 mg/dL, High >219 mg/dL, Very high Secondary prevention optimal non HDL Cholesterol levels are recommended to be < 100 mg/dL LAB FT hrs Fasting Time 12 Result Comment: Corrected on 01/29 AT 0909: Previously reported as 10 LAB VLDL <30 mg/dL VLDL Cholesterol 20 LAB TCHDL <5.10 TC:HDL Ratio 3.43 LAB LDLHDL <2.54 LDL:HDL Ratio 1.98 Result Comment: Reference: 1. National Cholesterol Education Program ATP III Guideline At-A-Glance Quick Desk Reference: National Heart, Lung, and Blood [place]. National Institutes of Health. 2001: NIH Publication No. 01-3305. 2. An International Atherosclerosis Society position paper: global recommendations for the management of dyslipidemia: executive summary, Atherosclerosis. 2014: 232(2):410-413. Performed By: #### BMP, LIPB, HBA1C #### [facility] [employer] [address] [place], [place] [address] HEMOGLOBIN A1C Collected: 01/29/2018 Status: F Source: [place] 9:07 AM [facility] REPOSITORY TYPE CODE TESTS RESULT OUT OF REFERENCE UNITS RANGE LAB HGBA1C 4.3-5.6 % Hemoglobin A1c 5.3 LAB HBA0 mg/dL Est. Average Glucose 105 Result Comment: eAG: (Estimated average glucose) is a calculated value from HgbA1c and is technology sales representative of the average blood glucose level in the last 2-3 month period. Performed By: #### BMP, LIPB, HBA1C #### [facility] [employer] [address] [place], [place] [address] CNOV Observed: 01/22/2018 Status: COMPLETED Source: [place] 9:40 AM [facility] REPOSITORY Office Visit (PODIWS) AFSANEH LOWE ([id number]) 1955 F BLD Date Time Provider Department 01/22/18 9:40 AM SALINAS VIGIL During your visit today, we recorded the following information about you: Salinas Vgiil DPM 01/28/2018 10:59 AM Signed ? Salinas Vigil DPM Department of Podiatry [facility] [address] [facility] [address] Dept: [phone] Dept Patient left prior to being seen. Patient informed that I was coming in to examine her but she elected to leave. Salinas Vigil DPM Referring Provider: ER NON [facility] [[id number]] Allergies As of Date: 01/22/2018 Noted Allergy Reaction BEE STING 10/10/2012 10 - Anaphylaxis BETADINE (POVIDONE-IODINE) 12/17/2013 16 - Unknown IMITREX (SUMATRIPTAN SUCCINATE) 12/17/2005 11 - Vomiting TAPE (ADHESIVE TAPE (ROSINS)) 09/25/2012 14 - Other: See Comments Comments: Patients states paper tape makes her blister Date Reviewed: 01/22/2018 Reviewed by: Annmarie Cruz RN - Fully Assessed Reason for Visit: Patient Left Without Being Seen [2006] Reason For Visit History Recorded Primary Visit Diagnosis:Patient left without being seen [Z53.21] Prescriptions as of 01/22/2018 Sig: FENTANYL 12 MCG/HR TRANSDERMA* Apply 1 Patch as directed ace* GABAPENTIN 300 MG CAPSULE Take 300 mg by mouth three ti* POTASSIUM CHLORIDE ER 10 MEQ * TAKE 1 CAPSULE BY MOUTH TWICE* HALOPERIDOL 20 MG TABLET HYDROXYZINE PAMOATE 25 MG CAP* MELOXICAM 15 MG TABLET DIVALPROEX ER 250 MG TABLET,E* METHOCARBAMOL 500 MG TABLET COMPOUNDED PRESCRIPTION ADULT DIAPERS NEEDS MORE ABSO* COMPOUNDED PRESCRIPTION Diabetic booster 2 cases per* PRAVASTATIN 80 MG TABLET TAKE 1 TABLET BY MOUTH AT BED* NEBULIZER ACCESSORIES KIT Dispense new tubing, medicati* ALBUTEROL SULFATE HFA 90 MCG/* INHALE 2 PUFFS BY MOUTH EVERY* MAGNESIUM OXIDE 400 MG (241.3* TAKE 1 TABLET BY MOUTH DAILY COMPOUNDED PRESCRIPTION Washable [place] Bed pads Change* OYSTER SHELL CALCIUM-VITAMIN * TAKE 1 TABLET BY MOUTH DAILY BLOOD SUGAR DIAGNOSTIC STRIPS Test blood sugar(s) 4 times d* LANCETS 33 GAUGE Test blood sugars four times * NUTRITION TX GLU INTOL,LAC-FR* Take 1 Each by mouth once qiana* ALBUTEROL SULFATE 2.5 MG/3 ML* Use 3 mL via nebulizer every * EPINEPHRINE 0.3 MG/0.3 ML INJ* as needed for allergic anaphy* OLOPATADINE 0.1 % EYE DROPS USE 1 DROP IN BOTH EYES TWICE* TOPIRAMATE 50 MG TABLET Take 1 tablet by mouth twice * Patient taking differently: Take 200 mg by mouth twice da* NITROGLYCERIN 0.4 MG SUBLINGU* Dissolve 1 tablet under the t* VENLAFAXINE ER 75 MG CAPSULE,* Take 2 capsules by mouth once* ALCOHOL PREP PADS USE TWICE DAILY RIZATRIPTAN 10 MG TABLET Take 10 mg by mouth as needed* MUPIROCIN 2 % TOPICAL OINTMENT Apply 1 application to affect* ASPIRIN 81 MG TABLET,DELAYED * Take 1 tablet by mouth once d* SILVER SULFADIAZINE 1 % TOPIC* Apply 1 application to affect* * ZIPRASIDONE 80 MG CAPSULE Take 1 capsule by mouth twice* PHENYTOIN SODIUM EXTENDED 100* Takes 2 capsules 3 times per * Patient taking differently: Take 200 mg by mouth twice da* Problem List As Of Date 01/22/2018 Noted Resolved MITRAL VALVE DISORDER [I05.9] DIARRHEA NOS [R19.7] INVALID FOR* Benign neoplasm of colon [D12.6] INVALID FOR* Benign neoplasm of rectum and anal canal [D12.8*INVALID FOR* GERD (gastroesophageal reflux disease) [K21.9] INVALID FOR* Hiatal hernia [K44.9] INVALID FOR* Right rotator cuff tear [M75.101] INVALID FOR* Paranoid schizophrenia (HCC) [F20.0] INVALID FOR* Blepharospasm [G24.5] INVALID FOR* Hypertension [I10] INVALID FOR* Hyperlipidemia [E78.5] INVALID FOR* Intractable migraine without aura [G43.019] INVALID FOR*03/13/2016 Intractable migraine with aura [G43.119] INVALID FOR* 8.2.3 Analgesic overuse headache [F55.2] [339.3*INVALID FOR* Constipation [K59.00] Abdominal pain, other specified site [R10.9] Kidney stones [N20.0] Diabetes mellitus type 2, controlled, without c*INVALID FOR* Osteoarthritis, multiple sites [M15.9] INVALID FOR* Shoulder pain [M25.519] INVALID FOR* Chronic knee pain [M25.569, G89.29] INVALID FOR* S/P TKR (total knee replacement) [Z96.659] INVALID FOR* Calculus of gallbladder with chronic cholecysti*INVALID FOR* Umbilical hernia without obstruction or gangren*INVALID FOR* Family history of ischemic heart disease [Z82.4*INVALID FOR* Opioid abuse [F11.10] INVALID FOR* More... 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] INVALID FOR* Chronic right shoulder pain [M25.511, G89.29] INVALID FOR* Balance disorder [R26.89] INVALID FOR* Use of cane as ambulatory aid [Z99.89] INVALID FOR* Impaired vision [H54.7] INVALID FOR* Obesity, Class III, BMI 40-49.9 (morbid obesity*INVALID FOR* Encounter Status:Closed by SHANTELL DING CMA on 01/28/18 PROGRESS Observed: 01/22/2018 Status: COMPLETED Source: [place] 9:34 AM [facility] REPOSITORY HNO ID: [id number] Author: Salinas Vigil Service: (none) Author Type: Physician Type: Progress Notes Filed: 01/28/2018 10:59 AM Note Text: ? Salinas Vigil DPM Department of Podiatry [facility] [address] [facility] [address] Dept: [phone] Dept Patient left prior to being seen. Patient informed that I was coming in to examine her but she elected to leave. Salinas Vigil DPM CNOV Observed: 01/21/2018 Status: COMPLETED Source: [place] 8:40 AM [facility] REPOSITORY Office Visit (INTMWS) AFSANEH LOWE ([id number]) 1955 F BLD Date Time Provider Department 01/21/18 8:40 AM YOUNG SUH ([facility]) INTMWS During your visit today, we recorded the following information about you: Temperature Pulse Respiration Blood pressure 98.1 degrees 98/minute 16/minute 108/60 Weight 99.3 kg Young Suh APRN.CNP 01/21/2018 9:53 AM Signed CC: Patient presents with: Imm/Inj: Flu Vaccine HPI Afsaneh Lowe is a 62 year old female who presents today for review of medical conditions and lab work. Patient reports fracturing her 2nd left toe ~1 week ago after running into a bedpost. She was evaluated at [facility] ER, paperwork not available for review. She indicates her toenail was removed and stiches x2 were placed. She currently has bandage to site. She has follow up scheduled with tomorrow. Hyperlipidemia. Ms. Lowe reports doing well on current therapy of pravastatin (Pravachol) 80 mg. Denies side effects of muscle weakness or achiness. Needs labs drawn. COPD: Stable. Reports some SOB on exertion and wheezing. Reports using her inhaler regularly. Denies any recent hospitalizations or exacerbations. She is still a 1 ppd smoker. Epilepsy/Seizures: Reports being compliant with medication and denies side effects. She reports have a couple of seizures this past year after starting on Fentanyl 14mcg patch per pain management. Neurology was aware and advised decreased dose. Patient was changed to 10mcg patch and has not experienced any additional seizures. Migraines: Followed by Dr. Davila, neurology in [place]. She was started on a brand new injection, cannot recall name. She reports migraines are well controlled with new treatment. . Schizophrenia: Followed by Psychiatry Dr. Saini? out of [facility]. Next appointment this Saturday and is seen ~every month. Patient reports she is compliant with medications and is without side effects. Depression: Has been well controlled. But PTSD is bad, Patient reports both of her ex-husbands within 3 weeks of each other from heart attacks. She is coping okay and has the support of her children and gnosticist. Denies any SI/HI. CHF: denies any recent exacerbations. Notes some SOB on exertion. Notes BLE edema intermittently and has compression stockings at home but not wearing today. Reports she is trying to loose weight. She is drinking more water. She is eating more fruits and veggies. She cannot participate in regular exercise. She does walk her service dog some times. DM: last A1C 5.2%. Patient is not on any medications and does not check her sugars at home. Will repeat A1C. REVIEW OF SYSTEMS General: no fevers, no chills, no night sweats, no recurrent infections, no change in appetite, no change in energy and no significant changes in weight HEENT: no changes in hearing, no visual changes, no nose bleeds, no sinus or nasal problems- notes she needs eye exam Neck: no lumps, no pain and no swelling Respiratory: no cough, no hemoptysis, See HPI Cardiovascular: no chest pain, no chest pressure, no palpitations and See HPI GI: No nausea, vomiting, or diarrhea : Negative for dysuria, frequency and hematuria Endocrine: no fatigue, no weight gain, no weight loss, no hair loss, no dry skin, no cold intolerance, no heat intolerance, no neck pain/pressure, no polyuria, no polyphagia and no polydipsia Neurologic: No weakness, numbness, tingling, neck stiffness, tremor, vertigo, dizziness, memory loss, syncope. PAST MEDICAL HISTORY Diagnosis Date - Abdominal pain, other specified site chronic - Arthritis - Asthma - Asthmatic bronchitis - Atypical chest pain - Auditory hallucinations 12/19/2014 [facility] - see scanned documents - Back pain - Benign neoplasm of colon - Blepharospasm - Bronchitis - Carpal tunnel syndrome of left wrist 04/06/2015 mild, nerve conduction study - CHF (congestive heart failure) ([facility]) - Constipation - COPD (chronic obstructive pulmonary disease) ([facility]) - Coronary disease - Degenerative arthritis of knee bilateral - Depression - Diarrhea - Epilepsy ([facility]) - Fibromyalgia - Hemorrhoids - Hypertension - IDDM (insulin dependent diabetes mellitus) ([facility]) - Intoxication with opioids ([facility]) + urine tox - Kidney stones - Kidney stones - Migraine - Mitral valve disorders - Narcotic abuse ([facility]) NO NARCOTICS, see [facility], multiple providers - Obesity - Osteoporosis - Pneumonia - Renal failure - Restrictive lung disease 02/2015 - Right shoulder injury - Schizo affective schizophrenia ([facility]) Dr. Mcdonnell Psychiatrist - Seizures ([facility]) Pt. uses medical alert dog - Sleep disorder - Stroke ([facility]) - Suicidal ideations 12/19/2014 [facility] - see scanned documents - UTI (urinary tract infection) PAST SURGICAL HISTORY Procedure Laterality Date - COLONOSCOP W/ OR W/O [facility] SPEC 07/03/2010 Colonoscopy - COLONOSCOP W/ OR W/O [facility] SPEC 01/21/2014 Colonoscopy - EGD W/O OR W/BRUSH/WASH 01/21/2014 EGD - EYE SURGERY HX 1999 - F LITHOTRIPSY 2013 kidney stones - LAP CHOLECYSTECT/CHOLANGIOGRAPHY 12/22/14 failed IOC due to small duct - LAPAROSCOPIC TUBAL LIGATION/RING/CLIP 84 - NAIL AVULSION, E/A NAIL Bilateral greast nails - PAST SURGICAL HISTORY OF teeth pulled - TOTAL KNEE REPLACEMENT 2012 bilateral knee replacement Left 04/2012/ right 09/2012 ALLERGIES Bee Sting; Betadine [Povidone-Iodine]; Imitrex [Sumatriptan Succinate]; Tape [Adhesive Tape (Rosins)] MEDICATIONS potassium chloride SR (MICRO-K) 10 mEq CR capsule TAKE 1 CAPSULE BY MOUTH TWICE A DAY Haloperidol 20 mg tablet hydrOXYzine pamoate (VISTARIL) 25 mg capsule meloxicam (MOBIC) 15 mg tablet divalproex ER (DEPAKOTE ER) 250 mg 24 hr tablet methocarbamol (ROBAXIN) 500 mg tablet COMPOUNDED PRESCRIPTION ADULT DIAPERS NEEDS MORE ABSORBANT TYPE, USING 12 DAILY DX N32 N39.3 R39.15 N39.41 N81.11 N81.4 COMPOUNDED PRESCRIPTION Diabetic booster2 cases per month. Dx is pravastatin (PRAVACHOL) 80 mg tablet TAKE 1 TABLET BY MOUTH AT BEDTIME Nebulizer Accessories kit Dispense new tubing, medication chamber and mouth pieces for use with Nebulizer. ICD10 code albuterol HFA (PROAIR HFA) 90 mcg/actuation inhaler INHALE 2 PUFFS BY MOUTH EVERY 6 HOURS NEEDED magnesium oxide (MAG-OX) 400 mg tablet TAKE 1 TABLET BY MOUTH DAILY Blood Pressure Cuff - Home Use DIGITAL BLOOD PRESSURE CUFF FOR HOME USE. DX: LABILE BLOOD PRESSURE COMPOUNDED PRESCRIPTION First Alert Dx: G40.309, R26.89, J98.4 COMPOUNDED PRESCRIPTION Washable [place] Bed pads Change once daily as needed. DX N32 N39.3 R39.15 N39.41 N81.11 N81.4 OYSTER SHELL CALCIUM-VITAMIN D 500 mg(1,250mg) -200 unit per tablet TAKE 1 TABLET BY MOUTH DAILY blood sugar diagnostic (BLOOD GLUCOSE TEST) test strip Test blood sugar(s) 4 times daily. Dx: Type 2 DM - Controlled E11.9 Insulin: No lancets (ONE TOUCH DELICA) 33 gauge misc Test blood sugars four times daily. E11.9. No insulin nut.tx.gluc intol,lf,soy-fiber (BOOST GLUCOSE CONTROL) 0.06- 1.1 gram-kcal/mL liqd Take 1 Each by mouth once daily. albuterol (PROVENTIL) 2.5 mg /3 mL (0.083 %) nebulizer solution Use 3 mL via nebulizer every 4 hours as needed for Wheezing/Shortness of Breath. Use over 5-15minutes. DX:asthmatic bronchitis J 45.909 EPINEPHrine (EPIPEN, AUVI-Q) 0.3 mg/0.3 mL auto-injector as needed for allergic anaphylaxis COMPOUNDED PRESCRIPTION LIFT MECHANISM FOR LIFT CHAIR DX R26.89 M15.9 COMPOUNDED PRESCRIPTION RAISED TOILET SEAT WITH ARMS DX R26.89 M15.9 olopatadine (PATANOL) 0.1 % ophthalmic solution USE 1 DROP IN BOTH EYES TWICE DAILY. COMPOUNDED PRESCRIPTION Dispense wheeled walker with seat phenytoin ER (DILANTIN) 100 mg ER capsule Takes 2 capsules 3 times per day topiramate (TOPAMAX) 50 mg tablet Take 1 tablet by mouth twice daily. nitroglycerin sublingual (NITROQUICK) 0.4 mg SL tablet Dissolve 1 tablet under the tongue every 5 minutes as needed for Chest Pain. venlafaxine ER (EFFEXOR XR) 75 mg 24 hr capsule Take 2 capsules by mouth once daily. ALCOHOL PREP PADS padm USE TWICE DAILY COMPOUNDED PRESCRIPTION High Back Shower Chair that holds 300 lb plus. Stroke (HCC) (I63.9) rizatriptan (MAXALT) 10 mg tablet Take 10 mg by mouth as needed (one as neede for headache). May repeat in 2 hours if needed HYDROcodone-Acetaminophen (NORCO) 7.5-325 mg per tablet Take by mouth three times daily as needed. Compression Knee Highs KNEE HIGH COMPRESSION STOCKINGS 20- 30 MM. DX: EDEMA mupirocin (BACTROBAN) 2 % ointment Apply 1 application to affected area three times daily. COMPOUNDED PRESCRIPTION 1 Device as needed. NEBULIZER FOR HOME USE. DX: Restrictive lung disease, COPD COMPOUNDED PRESCRIPTION Registered Nurse services in home 1 hour weekly COMPOUNDED PRESCRIPTION Nurses Aid in home care, 33 hours weekly Blood-Glucose Meter monitoring kit Glucose Meter of Choice - Kit - Dx: Type 2 DM - Controlled E11.9, Use as directed, test once a day and PRN aspirin, enteric coated (ADULT LOW DOSE ASPIRIN) 81 mg EC tablet Take 1 tablet by mouth once daily. silver sulfADIAZINE (SILVADENE,THERMAZENE) 1 % cream Apply 1 application to affected area twice daily. ziprasidone (GEODON) 80 mg capsule Take 1 capsule by mouth twice daily. takes 1 in the am and 1 at bedtime. FAMILY HISTORY Problem Relation Age of Onset - Headache Mother migraines - Cancer Mother Bladder - other (mental illness) Mother - Diabetes Father heart - Headache Father migraine - Alzheimer's Disease Father 65 - Heart Father - Hypertension Father - Seizures Father - Stroke Father - Colon Cancer Maternal Grandmother - other (mental illness) Daughter - other (schizophrenia) Daughter and bipolar - Cancer Other Social History Substance Use Topics - Smoking status: Current Every Day Smoker Packs/day: 1.00 Years: 3.00 Types: Cigarettes - Smokeless tobacco: Never Used - Alcohol use No PHYSICAL EXAM BP 108/60 Pulse 98 Temp 36.7 ?C (98.1 ?F) (Temporal Artery) Resp 16 Wt 99.3 kg (219 lb) SpO2 98% BMI 40.06 kg/m? General Appearance: well appearing, in no acute distress, alert Pysch: mood and affect flat and restricted Skin: Skin color, texture, turgor normal for age; Head: normocephalic, atraumatic Lungs: Lungs clear to auscultation. No wheezing, rhonchi, rales +cough, moist non-productive Heart: RRR without murmur, gallop, or rubs. No ectopy Abdomen: Abdomen soft, non-tender. Bowel sounds normal. No masses, organomegaly Bilateral Lower Extremities: No deformities, edema, skin discoloration, clubbing or cyanosis. Good capillary refill. , Pulses: 2+ DM foot exam: shoes and socks removed, Calluses Right, heel and Left, heel, normal distal pulses and sensitive to 10 gm monofilament HPV EVERY 5 YEARS due on 1986 DIABETIC FOOT EXAM due on 02/25/2016 URINE ALBUMIN:CREATININE RATIO due on 04/05/2017 LDL CHOLESTEROL due on 04/05/2017 DILATED RETINAL EXAM due on 08/01/2017 INFLUENZA(1) due on 12/28/2017 STATIN MED ADHERENCE due on 01/27/2018 HBA1C due on 03/16/2018 MAMMOGRAM due on 08/19/2018 ANNUAL PCP TEAM CHRONIC DISEASE VISIT due on 09/13/2018 BP CONTROLLED (<130/80) due on 09/13/2018 PAP EVERY 5 YEARS due on 10/16/2020 COLORECTAL CANCER SCREENING,SEE MODIFIER due on 01/22/2024 DTAP,TDAP,TD(2 - Td) due on 11/10/2025 ONE PNEUMOVAX PRIOR TO AGE 65 Completed HEPATITIS C SCREENING Completed ASSESSMENT/PLAN: 1. Paranoid schizophrenia (HCC) - ICD9: 295.30, ICD10: F20.0 (primary diagnosis) - Stable - Continue current medications - Follow up with Psychiatry as scheduled 2. Hyperlipidemia, unspecified hyperlipidemia type - ICD9: 272.4, ICD10: E78.5 - to be determined upon return of lab results - Continue current medication. - Encouraged following a low fat, low cholesterol diet. - Discussed the benefits of regular aerobic exercise and weight loss. - Follow up in 4 months. - Encouraged following a low carbohydrate, healthy oil intake diet. - LIPID PANEL BASIC 3. Intractable migraine with aura without status migrainosus - ICD9: 346.01, ICD10: G43.119 - Controlled - Follows with Neurology - Follow up in 4 months 4. 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 Generalized convulsive epilepsy (HCC) - ICD9: 345.10, ICD10: G40.309 - Stable - Continue current medication - Followed by neurology - Follow up in 4 months 6. Obesity, Class III, BMI 40-49.9 (morbid obesity) (HCC) - ICD9: 278.01, ICD10: E66.01 - Recommend diet and exercise - Follow up in 4 months 7. Restrictive lung disease - ICD9: 518.89, ICD10: J98.4 - Stable - Continue current medications - Follow up in 4 months and PRN 8. Tobacco abuse - ICD9: 305.1, ICD10: Z72.0 - Cessation encouraged. - Physiologic and physical aspects of tobacco addiction as well as strategies for quitting were discussed. - Counseling was given focusing on the harmful effects of this addiction especially given the patient's medical condition(s) which will be worsened because of the chemicals in tobacco. 9. Need for vaccination - ICD9: V05.9, ICD10: Z23 - INFLUENZA VACCINE QUADRIVALENT AGE 3 YRS PLUS + IM Young Suh APRN.[employer] Prescription instructions reviewed with patient as applicable. Potential red flag symptoms discussed with the patient. Reviewed appropriate action plan to take if red flag symptoms occur. Patient agreeable to treatment plan. Referring Provider: SELF [[id number]] Allergies As of Date: 01/21/2018 Noted Allergy Reaction BEE STING 10/10/2012 10 - Anaphylaxis BETADINE (POVIDONE-IODINE) 12/17/2013 16 - Unknown IMITREX (SUMATRIPTAN SUCCINATE) 12/17/2005 11 - Vomiting TAPE (ADHESIVE TAPE (ROSINS)) 09/25/2012 14 - Other: See Comments Comments: Patients states paper tape makes her blister Date Reviewed: 01/21/2018 Reviewed by: Christy Glover Ma - Fully Assessed Reason for Visit: Imm/Inj [58] Cmt: Flu Vaccine Reason For Visit History Recorded Primary Visit Diagnosis:Paranoid schizophrenia (HCC) [F20.0] Other Visit Diagnoses:Hyperlipidemia, unspecified hyperlipidemia type [E78.5] Intractable migraine with aura without status migrainosus [G43.119] Controlled type 2 diabetes mellitus without complication, unspecified whether jail insulin use (HCC) [E11.9] Generalized convulsive epilepsy ([facility]) [G40.309] Obesity, Class III, BMI 40-49.9 (morbid obesity) ([facility]) [E66.01] Restrictive lung disease [J98.4] Tobacco abuse [Z72.0] Need for vaccination [Z23] Order(s):INFLUENZA VACCINE QUADRIVALENT AGE 3 YRS PLUS + IM [[id number]] Order #: [id number] ALBUMIN/CREAT RATIO RND UR [SQUACR] Order #: [id number] FUTURE HGB A1C [DEYJO7P] Order #: [id number] FUTURE LIPID PANEL BASIC [SQLIPB] Order #: [id number] FUTURE Prescriptions as of 01/21/2018 Sig: FENTANYL 12 MCG/HR TRANSDERMA* Apply 1 Patch as directed ace* GABAPENTIN 300 MG CAPSULE Take 300 mg by mouth three ti* POTASSIUM CHLORIDE ER 10 MEQ * TAKE 1 CAPSULE BY MOUTH TWICE* HALOPERIDOL 20 MG TABLET HYDROXYZINE PAMOATE 25 MG CAP* MELOXICAM 15 MG TABLET DIVALPROEX ER 250 MG TABLET,E* METHOCARBAMOL 500 MG TABLET COMPOUNDED PRESCRIPTION ADULT DIAPERS NEEDS MORE ABSO* COMPOUNDED PRESCRIPTION Diabetic booster 2 cases per* PRAVASTATIN 80 MG TABLET TAKE 1 TABLET BY MOUTH AT BED* NEBULIZER ACCESSORIES KIT Dispense new tubing, medicati* ALBUTEROL SULFATE HFA 90 MCG/* INHALE 2 PUFFS BY MOUTH EVERY* MAGNESIUM OXIDE 400 MG (241.3* TAKE 1 TABLET BY MOUTH DAILY COMPOUNDED PRESCRIPTION Washable [place] Bed pads Change* OYSTER SHELL CALCIUM-VITAMIN * TAKE 1 TABLET BY MOUTH DAILY BLOOD SUGAR DIAGNOSTIC STRIPS Test blood sugar(s) 4 times d* LANCETS 33 GAUGE Test blood sugars four times * NUTRITION TX GLU INTOL,LAC-FR* Take 1 Each by mouth once qiana* ALBUTEROL SULFATE 2.5 MG/3 ML* Use 3 mL via nebulizer every * EPINEPHRINE 0.3 MG/0.3 ML INJ* as needed for allergic anaphy* OLOPATADINE 0.1 % EYE DROPS USE 1 DROP IN BOTH EYES TWICE* PHENYTOIN SODIUM EXTENDED 100* Takes 2 capsules 3 times per * Patient taking differently: Take 200 mg by mouth twice da* TOPIRAMATE 50 MG TABLET Take 1 tablet by mouth twice * Patient taking differently: Take 200 mg by mouth twice da* NITROGLYCERIN 0.4 MG SUBLINGU* Dissolve 1 tablet under the t* VENLAFAXINE ER 75 MG CAPSULE,* Take 2 capsules by mouth once* ALCOHOL PREP PADS USE TWICE DAILY RIZATRIPTAN 10 MG TABLET Take 10 mg by mouth as needed* MUPIROCIN 2 % TOPICAL OINTMENT Apply 1 application to affect* ASPIRIN 81 MG TABLET,DELAYED * Take 1 tablet by mouth once d* SILVER SULFADIAZINE 1 % TOPIC* Apply 1 application to affect* * ZIPRASIDONE 80 MG CAPSULE Take 1 capsule by mouth twice* Problem List As Of Date 01/21/2018 Noted Resolved MITRAL VALVE DISORDER [I05.9] DIARRHEA NOS [R19.7] INVALID FOR* Benign neoplasm of colon [D12.6] INVALID FOR* Benign neoplasm of rectum and anal canal [D12.8*INVALID FOR* GERD (gastroesophageal reflux disease) [K21.9] INVALID FOR* Hiatal hernia [K44.9] INVALID FOR* Right rotator cuff tear [M75.101] INVALID FOR* Paranoid schizophrenia (HCC) [F20.0] INVALID FOR* Blepharospasm [G24.5] INVALID FOR* Hypertension [I10] INVALID FOR* Hyperlipidemia [E78.5] INVALID FOR* Intractable migraine without aura [G43.019] INVALID FOR*03/13/2016 Intractable migraine with aura [G43.119] INVALID FOR* 8.2.3 Analgesic overuse headache [F55.2] [339.3*INVALID FOR* Constipation [K59.00] Abdominal pain, other specified site [R10.9] Kidney stones [N20.0] Diabetes mellitus type 2, controlled, without c*INVALID FOR* Osteoarthritis, multiple sites [M15.9] INVALID FOR* Shoulder pain [M25.519] INVALID FOR* Chronic knee pain [M25.569, G89.29] INVALID FOR* S/P TKR (total knee replacement) [Z96.659] INVALID FOR* Calculus of gallbladder with chronic cholecysti*INVALID FOR* Umbilical hernia without obstruction or gangren*INVALID FOR* Family history of ischemic heart disease [Z82.4*INVALID FOR* Opioid abuse [F11.10] INVALID FOR* More... 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] INVALID FOR* Chronic right shoulder pain [M25.511, G89.29] INVALID FOR* Balance disorder [R26.89] INVALID FOR* Use of cane as ambulatory aid [R26.2] INVALID FOR* Impaired vision [H54.7] INVALID FOR* Obesity, Class III, BMI 40-49.9 (morbid obesity*INVALID FOR* Medications Discontinued During This Encounter Blood Pressure Cuff - Home Use 1 Ea* 1 08/23/2017 01/21/2018 Class: Print RX Sig: DIGITAL BLOOD PRESSURE CUFF FOR HOME USE. DX: LABILE BLOOD PRESSURE Disc: Reason for discontinue is not on file. COMPOUNDED PRESCRIPTION 1 Ea* 0 08/17/2015 01/21/2018 Class: Print RX Sig: Registered Nurse services in home 1 hour weekly Disc: Reason for discontinue is not on file. COMPOUNDED PRESCRIPTION 1 De* 0 09/23/2015 01/21/2018 Class: Print RX Route: Miscell. (Med.Supl.;Non-Drugs) Si Device as needed. NEBULIZER FOR HOME USE. DX: Restrictive lung disease, COPD Disc: Reason for discontinue is not on file. COMPOUNDED PRESCRIPTION 1 Ea* 0 10/22/2016 01/21/2018 Class: Print RX Sig: RAISED TOILET SEAT WITH ARMS DX R26.89 M15.9 Disc: Reason for discontinue is not on file. Compression Knee Highs 6 Ea* 0 03/10/2016 01/21/2018 Class: Print RX Sig: KNEE HIGH COMPRESSION STOCKINGS 20-30 MM. DX: EDEMA Disc: Reason for discontinue is not on file. HYDROcodone-Acetaminophen (NORCO) 7.* 02/10/2016 01/21/2018 Class: Historical Med Route: ORAL Sig: Take by mouth three times daily as needed. Disc: Reason for discontinue is not on file. COMPOUNDED PRESCRIPTION 1 Ea* 0 08/17/2015 01/21/2018 Class: Print RX Sig: Nurses Aid in home care, 33 hours weekly Disc: Reason for discontinue is not on file. COMPOUNDED PRESCRIPTION 1 Ea* 0 10/15/2016 01/21/2018 Sig: Dispense wheeled walker with seat Disc: Reason for discontinue is not on file. COMPOUNDED PRESCRIPTION 1 Ea* 0 07/01/2017 01/21/2018 Class: Print RX Sig: First Alert Dx: G40.309, R26.89, J98.4 Disc: Reason for discontinue is not on file. COMPOUNDED PRESCRIPTION 1 Ea* 0 10/22/2016 01/21/2018 Class: Print RX Sig: LIFT MECHANISM FOR LIFT CHAIR DX R26.89 M15.9 Disc: Reason for discontinue is not on file. Blood-Glucose Meter monitoring kit 1 Ea* 0 08/15/2015 01/21/2018 Cmt: Patient requests talking meter if insurance will cover this Sig: Glucose Meter of Choice - Kit - Dx: Type 2 DM - Controlled E11.9, Use as directed, test once a day and PRN Disc: Reason for discontinue is not on file. COMPOUNDED PRESCRIPTION 1 Ea* 0 04/16/2016 01/21/2018 Class: Print RX Sig: High Back Shower Chair that holds 300 lb plus. Stroke (HCC) (I63.9) Disc: Reason for discontinue is not on file. Follow-up and Disposition History Recorded Letter Text Afsaneh Lowe Diabetic Eye Examination Report Request Patient Name: Afsaneh Lowe Date of : 1955 Date of Eye Exam: Thank you for seeing our patient and being a valuable provider of her Diabetic Eye Care. Please return completed form via fax or mail to: Young Suh APRN.[facility] Internal Medicine [place] [address] [facility] [address] Dept: [phone] Dept I give my permission to release this information to my Primary Care Provider listed above. Patient signature Date Your patient was examined in our office on the above date and found to have the following findings in regard to the retinal examination: No diabetic retinopathy OD OS Background diabetic retinopathy OD OS Proliferative diabetic retinopathy OD OS Other ocular conditions Examiner's Name: Examiner's Address: Examiner's Telephone Number: Encounter Status:Closed by YOUNG SUH CNP on 01/21/18 PROGRESS Observed: 01/21/2018 Status: COMPLETED Source: [place] 8:34 AM [facility] REPOSITORY O ID: [id number] Author: Young (Marley) Donny Service: (none) Author Type: Nurse Practitioner Type: Progress Notes Filed: 01/21/2018 9:53 AM Note Text: CC: Patient presents with: Imm/Inj: Flu Vaccine HPI Afsaneh oLwe is a 62 year old female who presents today for review of medical conditions and lab work. Patient reports fracturing her 2nd left toe ~1 week ago after running into a bedpost. She was evaluated at [facility] ER, paperwork not available for review. She indicates her toenail was removed and stiches x2 were placed. She currently has bandage to site. She has follow up scheduled with tomorrow. Hyperlipidemia. Ms. Lowe reports doing well on current therapy of pravastatin (Pravachol) 80 mg. Denies side effects of muscle weakness or achiness. Needs labs drawn. COPD: Stable. Reports some SOB on exertion and wheezing. Reports using her inhaler regularly. Denies any recent hospitalizations or exacerbations. She is still a 1 ppd smoker. Epilepsy/Seizures: Reports being compliant with medication and denies side effects. She reports have a couple of seizures this past year after starting on Fentanyl 14mcg patch per pain management. Neurology was aware and advised decreased dose. Patient was changed to 10mcg patch and has not experienced any additional seizures. Migraines: Followed by Dr. Davila, neurology in [place]. She was started on a brand new injection, cannot recall name. She reports migraines are well controlled with new treatment. . Schizophrenia: Followed by Psychiatry Dr. Saini? out of [facility]. Next appointment this Saturday and is seen ~every month. Patient reports she is compliant with medications and is without side effects. Depression: Has been well controlled. But PTSD is bad, Patient reports both of her ex-husbands within 3 weeks of each other from heart attacks. She is coping okay and has the support of her children and gnosticist. Denies any SI/HI. CHF: denies any recent exacerbations. Notes some SOB on exertion. Notes BLE edema intermittently and has compression stockings at home but not wearing today. Reports she is trying to loose weight. She is drinking more water. She is eating more fruits and veggies. She cannot participate in regular exercise. She does walk her service dog some times. DM: last A1C 5.2%. Patient is not on any medications and does not check her sugars at home. Will repeat A1C. REVIEW OF SYSTEMS General: no fevers, no chills, no night sweats, no recurrent infections, no change in appetite, no change in energy and no significant changes in weight HEENT: no changes in hearing, no visual changes, no nose bleeds, no sinus or nasal problems- notes she needs eye exam Neck: no lumps, no pain and no swelling Respiratory: no cough, no hemoptysis, See HPI Cardiovascular: no chest pain, no chest pressure, no palpitations and See HPI GI: No nausea, vomiting, or diarrhea : Negative for dysuria, frequency and hematuria Endocrine: no fatigue, no weight gain, no weight loss, no hair loss, no dry skin, no cold intolerance, no heat intolerance, no neck pain/pressure, no polyuria, no polyphagia and no polydipsia Neurologic: No weakness, numbness, tingling, neck stiffness, tremor, vertigo, dizziness, memory loss, syncope. PAST MEDICAL HISTORY Diagnosis Date - Abdominal pain, other specified site chronic - Arthritis - Asthma - Asthmatic bronchitis - Atypical chest pain - Auditory hallucinations 12/19/2014 [facility] - see scanned documents - Back pain - Benign neoplasm of colon - Blepharospasm - Bronchitis - Carpal tunnel syndrome of left wrist 04/06/2015 mild, nerve conduction study - CHF (congestive heart failure) ([facility]) - Constipation - COPD (chronic obstructive pulmonary disease) ([facility]) - Coronary disease - Degenerative arthritis of knee bilateral - Depression - Diarrhea - Epilepsy ([facility]) - Fibromyalgia - Hemorrhoids - Hypertension - IDDM (insulin dependent diabetes mellitus) ([facility]) - Intoxication with opioids ([facility]) + urine tox - Kidney stones - Kidney stones - Migraine - Mitral valve disorders - Narcotic abuse ([facility]) NO NARCOTICS, see [facility], multiple providers - Obesity - Osteoporosis - Pneumonia - Renal failure - Restrictive lung disease 02/2015 - Right shoulder injury - Schizo affective schizophrenia ([facility]) Dr. Mcdonnell Psychiatrist - Seizures ([facility]) Pt. uses medical alert dog - Sleep disorder - Stroke ([facility]) - Suicidal ideations 12/19/2014 [facility] - see scanned documents - UTI (urinary tract infection) PAST SURGICAL HISTORY Procedure Laterality Date - COLONOSCOP W/ OR W/O [facility] SPEC 07/03/2010 Colonoscopy - COLONOSCOP W/ OR W/O [facility] SPEC 01/21/2014 Colonoscopy - EGD W/O OR W/BRUSH/WASH 01/21/2014 EGD - EYE SURGERY HX 1999 - LITHOTRIPSY 2013 kidney stones - LAP CHOLECYSTECT/CHOLANGIOGRAPHY 12/22/14 failed IOC due to small duct - LAPAROSCOPIC TUBAL LIGATION/RING/CLIP 84 - NAIL AVULSION, E/A NAIL Bilateral greast nails - PAST SURGICAL HISTORY OF teeth pulled - TOTAL KNEE REPLACEMENT 2012 bilateral knee replacement Left 04/2012/ right 09/2012 ALLERGIES Bee Sting; Betadine [Povidone-Iodine]; Imitrex [Sumatriptan Succinate]; Tape [Adhesive Tape (Rosins)] MEDICATIONS potassium chloride SR (MICRO-K) 10 mEq CR capsule TAKE 1 CAPSULE BY MOUTH TWICE A DAY Haloperidol 20 mg tablet hydrOXYzine pamoate (VISTARIL) 25 mg capsule meloxicam (MOBIC) 15 mg tablet divalproex ER (DEPAKOTE ER) 250 mg 24 hr tablet methocarbamol (ROBAXIN) 500 mg tablet COMPOUNDED PRESCRIPTION ADULT DIAPERS NEEDS MORE ABSORBANT TYPE, USING 12 DAILY DX N32 N39.3 R39.15 N39.41 N81.11 N81.4 COMPOUNDED PRESCRIPTION Diabetic booster2 cases per month. Dx is pravastatin (PRAVACHOL) 80 mg tablet TAKE 1 TABLET BY MOUTH AT BEDTIME Nebulizer Accessories kit Dispense new tubing, medication chamber and mouth pieces for use with Nebulizer. ICD10 code albuterol HFA (PROAIR HFA) 90 mcg/actuation inhaler INHALE 2 PUFFS BY MOUTH EVERY 6 HOURS NEEDED magnesium oxide (MAG-OX) 400 mg tablet TAKE 1 TABLET BY MOUTH DAILY Blood Pressure Cuff - Home Use DIGITAL BLOOD PRESSURE CUFF FOR HOME USE. DX: LABILE BLOOD PRESSURE COMPOUNDED PRESCRIPTION First Alert Dx: G40.309, R26.89, J98.4 COMPOUNDED PRESCRIPTION Washable [place] Bed pads Change once daily as needed. DX N32 N39.3 R39.15 N39.41 N81.11 N81.4 OYSTER SHELL CALCIUM-VITAMIN D 500 mg(1,250mg) -200 unit per tablet TAKE 1 TABLET BY MOUTH DAILY blood sugar diagnostic (BLOOD GLUCOSE TEST) test strip Test blood sugar(s) 4 times daily. Dx: Type 2 DM - Controlled E11.9 Insulin: No lancets (ONE TOUCH DELICA) 33 gauge misc Test blood sugars four times daily. E11.9. No insulin nut.tx.gluc intol,lf,soy-fiber (BOOST GLUCOSE CONTROL) 0.06-1.1 gram-kcal/mL liqd Take 1 Each by mouth once daily. albuterol (PROVENTIL) 2.5 mg /3 mL (0.083 %) nebulizer solution Use 3 mL via nebulizer every 4 hours as needed for Wheezing/Shortness of Breath. Use over 5-15minutes. DX:asthmatic bronchitis J 45.909 EPINEPHrine (EPIPEN, AUVI-Q) 0.3 mg/0.3 mL auto-injector as needed for allergic anaphylaxis COMPOUNDED PRESCRIPTION LIFT MECHANISM FOR LIFT CHAIR DX R26.89 M15.9 COMPOUNDED PRESCRIPTION RAISED TOILET SEAT WITH ARMS DX R26.89 M15.9 olopatadine (PATANOL) 0.1 % ophthalmic solution USE 1 DROP IN BOTH EYES TWICE DAILY. COMPOUNDED PRESCRIPTION Dispense wheeled walker with seat phenytoin ER (DILANTIN) 100 mg ER capsule Takes 2 capsules 3 times per day topiramate (TOPAMAX) 50 mg tablet Take 1 tablet by mouth twice daily. nitroglycerin sublingual (NITROQUICK) 0.4 mg SL tablet Dissolve 1 tablet under the tongue every 5 minutes as needed for Chest Pain. venlafaxine ER (EFFEXOR XR) 75 mg 24 hr capsule Take 2 capsules by mouth once daily. ALCOHOL PREP PADS padm USE TWICE DAILY COMPOUNDED PRESCRIPTION High Back Shower Chair that holds 300 lb plus. Stroke (HCC) (I63.9) rizatriptan (MAXALT) 10 mg tablet Take 10 mg by mouth as needed (one as neede for headache). May repeat in 2 hours if needed HYDROcodone-Acetaminophen (NORCO) 7.5-325 mg per tablet Take by mouth three times daily as needed. Compression Knee Highs KNEE HIGH COMPRESSION STOCKINGS 20- 30 MM. DX: EDEMA mupirocin (BACTROBAN) 2 % ointment Apply 1 application to affected area three times daily. COMPOUNDED PRESCRIPTION 1 Device as needed. NEBULIZER FOR HOME USE. DX: Restrictive lung disease, COPD COMPOUNDED PRESCRIPTION Registered Nurse services in home 1 hour weekly COMPOUNDED PRESCRIPTION Nurses Aid in home care, 33 hours weekly Blood-Glucose Meter monitoring kit Glucose Meter of Choice - Kit - Dx: Type 2 DM - Controlled E11.9, Use as directed, test once a day and PRN aspirin, enteric coated (ADULT LOW DOSE ASPIRIN) 81 mg EC tablet Take 1 tablet by mouth once daily. silver sulfADIAZINE (SILVADENE,THERMAZENE) 1 % cream Apply 1 application to affected area twice daily. ziprasidone (GEODON) 80 mg capsule Take 1 capsule by mouth twice daily. takes 1 in the am and 1 at bedtime. FAMILY HISTORY Problem Relation Age of Onset - Headache Mother migraines - Cancer Mother Bladder - other (mental illness) Mother - Diabetes Father heart - Headache Father migraine - Alzheimer's Disease Father 65 - Heart Father - Hypertension Father - Seizures Father - Stroke Father - Colon Cancer Maternal Grandmother - other (mental illness) Daughter - other (schizophrenia) Daughter and bipolar - Cancer Other Social History Substance Use Topics - Smoking status: Current Every Day Smoker Packs/day: 1.00 Years: 3.00 Types: Cigarettes - Smokeless tobacco: Never Used - Alcohol use No PHYSICAL EXAM BP 108/60 Pulse 98 Temp 36.7 ?C (98.1 ?F) (Temporal Artery) Resp 16 Wt 99.3 kg (219 lb) SpO2 98% BMI 40.06 kg/m? General Appearance: well appearing, in no acute distress, alert Pysch: mood and affect flat and restricted Skin: Skin color, texture, turgor normal for age; Head: normocephalic, atraumatic Lungs: Lungs clear to auscultation. No wheezing, rhonchi, rales +cough, moist non-productive Heart: RRR without murmur, gallop, or rubs. No ectopy Abdomen: Abdomen soft, non-tender. Bowel sounds normal. No masses, organomegaly Bilateral Lower Extremities: No deformities, edema, skin discoloration, clubbing or cyanosis. Good capillary refill. , Pulses: 2+ DM foot exam: shoes and socks removed, Calluses Right, heel and Left, heel, normal distal pulses and sensitive to 10 gm monofilament HPV EVERY 5 YEARS due on 1986 DIABETIC FOOT EXAM due on 02/25/2016 URINE ALBUMIN:CREATININE RATIO due on 04/05/2017 LDL CHOLESTEROL due on 04/05/2017 DILATED RETINAL EXAM due on 08/01/2017 INFLUENZA(1) due on 12/28/2017 STATIN MED ADHERENCE due on 01/27/2018 HBA1C due on 03/16/2018 MAMMOGRAM due on 08/19/2018 ANNUAL PCP TEAM CHRONIC DISEASE VISIT due on 09/13/2018 BP CONTROLLED (<130/80) due on 09/13/2018 PAP EVERY 5 YEARS due on 10/16/2020 COLORECTAL CANCER SCREENING,SEE MODIFIER due on 01/22/2024 DTAP,TDAP,TD(2 - Td) due on 11/10/2025 ONE PNEUMOVAX PRIOR TO AGE 65 Completed HEPATITIS C SCREENING Completed ASSESSMENT/PLAN: 1. Paranoid schizophrenia (HCC) - ICD9: 295.30, ICD10: F20.0 (primary diagnosis) - Stable - Continue current medications - Follow up with Psychiatry as scheduled 2. Hyperlipidemia, unspecified hyperlipidemia type - ICD9: 272.4, ICD10: E78.5 - to be determined upon return of lab results - Continue current medication. - Encouraged following a low fat, low cholesterol diet. - Discussed the benefits of regular aerobic exercise and weight loss. - Follow up in 4 months. - Encouraged following a low carbohydrate, healthy oil intake diet. - LIPID PANEL BASIC 3. Intractable migraine with aura without status migrainosus - ICD9: 346.01, ICD10: G43.119 - Controlled - Follows with Neurology - Follow up in 4 months 4. 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 Generalized convulsive epilepsy (HCC) - ICD9: 345.10, ICD10: G40.309 - Stable - Continue current medication - Followed by neurology - Follow up in 4 months 6. Obesity, Class III, BMI 40-49.9 (morbid obesity) (HCC) - ICD9: 278.01, ICD10: E66.01 - Recommend diet and exercise - Follow up in 4 months 7. Restrictive lung disease - ICD9: 518.89, ICD10: J98.4 - Stable - Continue current medications - Follow up in 4 months and PRN 8. Tobacco abuse - ICD9: 305.1, ICD10: Z72.0 - Cessation encouraged. - Physiologic and physical aspects of tobacco addiction as well as strategies for quitting were discussed. - Counseling was given focusing on the harmful effects of this addiction especially given the patient's medical condition(s) which will be worsened because of the chemicals in tobacco. 9. Need for vaccination - ICD9: V05.9, ICD10: Z23 - INFLUENZA VACCINE QUADRIVALENT AGE 3 YRS PLUS + IM Young Suh APRN.BUSINESS DIVISION CHAIR Prescription instructions reviewed with patient as applicable. Potential red flag symptoms discussed with the patient. Reviewed appropriate action plan to take if red flag symptoms occur. Patient agreeable to treatment plan. EMERGENCY DEPARTMENT Observed: 01/13/2018 Status: F Source: [facility] SUMMARY 3:20 PM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 SOCIAL HISTORY: The patient is an everyday smoker. She smokes one pack of cigarettes a day. She denies alcohol use. She denies illicit drug use. She denies prescription drug abuse. The patient lives at home alone. The patient denies concerns for domestic violence or thoughts of self-harm. REVIEW OF SYSTEMS: A full ten-point review of systems is as noted in the paper chart; please see this for additional details. PHYSICAL EXAMINATION: Temperature is 97.2, pulse 79, respiratory rate 18, blood pressure 110/73, and oxygen saturation 95% on room air. General: The patient is awake, alert and oriented, resting comfortably in examination bed #6, rolling around in the examination bed without difficulty and assists nursing staff in getting dressed into hospital gown also without obvious difficulty. The patient is able to stand and bear weight without difficulty. HEENT: Atraumatic, normocephalic. Mucous membranes are moist. Extraocular muscles are intact. Neck: Supple. Range of motion is normal. Cardiovascular: Regular rate and rhythm. No murmurs, rubs or gallops. Pulmonary: Clear to auscultation bilaterally. No wheezes, rales or rhonchi. Abdomen: Soft, nontender and nondistended. Bowel sounds are positive. Musculoskeletal: There is tenderness to palpation noted in the lower lumbosacral area. There is no erythema, Page 1 of 2 AFSANEH LOWE Emergency Room Report ecchymosis, or wounds overlying the skin. Range of motion about the back as well as the hips as well as the knees as well as the ankles is normal at this time. No skin injuries could be identified at this time. Neurologic: Cranial nerves II through XII are grossly intact. No sensory or motor abnormalities. Awake, alert and oriented x3. Psychiatric: Affect is flat, mood normal, judgment normal. DIAGNOSTIC DATA: A CBC was obtained and is within normal limits. BMP was also obtained and is unremarkable at this time. Lumbosacral complete series of the patient's back was obtained and shows no acute disease with mild degenerative disease. MEDICAL DECISION-MAKING: The patient is a 62-year-old female who presents with back pain secondary to a fall. Laboratory work is unremarkable. Radiology is unremarkable at this time. I do feel the patient likely has a lumbosacral strain. The patient is up and walking around in the Emergency Department without any apparent discomfort. The patient was noted by nursing staff to be moving around the bed without any significant discomfort. The patient was given Toradol, methylprednisolone and Norflex, which appeared to significantly reduce the patient's pain upon arrival. This may have contributed to how the patient is able to move around so freely and fluidly at this time. I discussed the results of the patient's radiology with the patient and was able to alleviate her concerns if she would need surgery at this time. I will provide the patient with a prescription for prednisone and Flexeril to go home with. The patient was very agreeable to this plan. All of the patient's questions were answered to her satisfaction at this time. I do not feel the patient has a fracture or dislocation or any complications relating to her fall at this time. The patient was discharged home in good condition and walked out of the Emergency Department under her own power. DISPOSITION: Home. CONDITION: Good. DIAGNOSIS: Lumbosacral strain. Dictated By: Cl Castillo MD 11/07/17 13:45 JOB #: [id number] Transcribed By: ijeoma 11/08/17 06:42 Electronically signed by: DR. CL CASTILLO 02/24/18 04:23 Page 2 of 2 AFSANEH LOWE Emergency Room Report PROGRESS Observed: 10/21/2017 Status: COMPLETED Source: [place] 3:30 PM [facility] REPOSITORY O ID: [id number] Author: Lucy Sutherland (Pharmacist) Service: (none) Author Type: Pharmacist Type: Progress Notes Filed: 10/21/2017 5:04 PM Note Text: Patient consents to pharmacy collaborative practice agreement. REASON FOR CONSULT: DM GOALS: A1c < 7% CONSULTING PROVIDER: Dr. Phelps Date of Consult: 08/2017 Afsaneh Lowe is a 62 year old female was last seen in [facility] by PCP, Dr. ESTEBAN PHELPS MD on 09/13/17. Patient is presenting today for f/u pharmacotherapy management appointment for DM. At last PCP visit metformin was stopped d/t hypoglycemic episodes INTERIM HISTORY: Presents with Geno Reports doing ok overall Did fall and bump her head today because her dog pulled her down she states Denies any alarm symptoms or confusion Has not checked her BG since metformin was d/c Current DM Medications: none Current HTN Medications: none ROS: ? Patient denies CP, SOB, AUGUSTIN, blurred vision, dizziness or lightheadedness ? Patient denies symptoms of hypoglycemia (sweating, anxiety, palpitations, hunger, and tremor) ? Patient denies symptoms of hyperglycemia (polyuria, polydipsia, polyphagia) ? Patient denies potential medication adverse effects DIET/EXERCISE/SOCIAL Hx: ? Breakfast: oatmeal with lots of sugar ? Lunch: peanut butter toast ? Dinner: had peanut butter toast last night ? Exercise: no ? Tobacco: yes, 1/2 ppd, not interested in quitting ? Alcohol: denies ? Illicits: denies MEDICATIONS: ? Pill bottles are present. ? Adherence: denies missed doses. ? Pharmacy: [facility] ? Rx coverage: Medicare ? Affordability: no issues ? 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) Osteoarthritis, Multiple Sites Shoulder Pain Chronic Knee Pain S/P Tkr (Total Knee Replacement) Calculus of Gallbladder With Chronic Cholecystitis Without Obstruction Umbilical Hernia Without Obstruction Or Gangrene Family History of Ischemic Heart Disease Opioid Abuse Restrictive Lung Disease Auditory Hallucination Generalized Convulsive Epilepsy (Hcc) Chronic Right Shoulder Pain Balance Disorder Use of Cane As Ambulatory Aid Impaired Vision Obesity, Class Iii, Bmi 40-49.9 (Morbid Obesity) ([facility]) PAST MEDICAL HISTORY Diagnosis Date - Abdominal pain, other specified site chronic - Arthritis - Asthma - Asthmatic bronchitis - Atypical chest pain - Auditory hallucinations 12/19/2014 [facility] - see scanned documents - Back pain - Benign neoplasm of colon - Blepharospasm - Bronchitis - Carpal tunnel syndrome of left wrist 04/06/2015 mild, nerve conduction study - CHF (congestive heart failure) ([facility]) - Constipation - COPD (chronic obstructive pulmonary disease) ([facility]) - Coronary disease - Degenerative arthritis of knee bilateral - Depression - Diarrhea - Epilepsy ([facility]) - Fibromyalgia - Hemorrhoids - Hypertension - IDDM (insulin dependent diabetes mellitus) ([facility]) - Intoxication with opioids ([facility]) + urine tox - Kidney stones - Kidney stones - Migraine - Mitral valve disorders - Narcotic abuse NO NARCOTICS, see OARRS, multiple providers - Obesity - Osteoporosis - Pneumonia - Renal failure - Restrictive lung disease 02/2015 - Right shoulder injury - Schizo affective schizophrenia ([facility]) Dr. Mcdonnell Psychiatrist - Seizures ([facility]) Pt. uses medical alert dog - Sleep disorder - Stroke ([facility]) - Suicidal ideations 12/19/2014 [facility] - see scanned documents - UTI (urinary tract infection) ALLERGIES Allergen Reactions - Bee Sting Anaphylaxis - Betadine [Povidone-* Unknown - Imitrex [Sumatripta* Vomiting - Tape [Adhesive Tape* Other: See Comments Patients states paper tape makes her blister Medication List Medication Directions Comments Action/Plan aspirin, enteric coated (ADULT LOW DOSE ASPIRIN) 81 mg EC tablet Take 1 tablet by mouth once daily. taking Discontinued: 10/21/2017 3:42 PM D/c by outside provider divalproex ER (DEPAKOTE ER) 250 mg 24 hr tablet None Entered taking Discontinued: 10/21/2017 3:45 PM Incorrect dose Haloperidol 20 mg tablet None Entered taking HYDROcodone-Acetaminophen (NORCO) 7.5-325 mg per tablet Take by mouth three times daily as needed. taking hydrOXYzine pamoate (VISTARIL) 25 mg capsule None Entered taking magnesium oxide (MAG-OX) 400 mg tablet TAKE 1 TABLET BY MOUTH DAILY taking meloxicam (MOBIC) 15 mg tablet None Entered taking methocarbamol (ROBAXIN) 500 mg tablet None Entered taking mupirocin (BACTROBAN) 2 % ointment Apply 1 application to affected area three times daily. nitroglycerin sublingual (NITROQUICK) 0.4 mg SL tablet Dissolve 1 tablet under the tongue every 5 minutes as needed for Chest Pain. olopatadine (PATANOL) 0.1 % ophthalmic solution USE 1 DROP IN BOTH EYES TWICE DAILY. Discontinued: 10/21/2017 3:47 PM D/c by outside provider OYSTER SHELL CALCIUM-VITAMIN D 500 mg(1,250mg) -200 unit per tablet TAKE 1 TABLET BY MOUTH DAILY taking phenytoin ER (DILANTIN) 100 mg ER capsule Takes 2 capsules 3 times per day Patient taking differently: Take 200 mg by mouth twice daily. Takes 2 capsules 3 times per day taking potassium chloride SR (MICRO-K) 10 mEq CR capsule Take 1 capsule by mouth twice daily. taking pravastatin (PRAVACHOL) 80 mg tablet TAKE 1 TABLET BY MOUTH AT BEDTIME taking rizatriptan (MAXALT) 10 mg tablet Take 10 mg by mouth as needed (one as neede for headache). May repeat in 2 hours if needed silver sulfADIAZINE (SILVADENE,THERMAZENE) 1 % cream Apply 1 application to affected area twice daily. topiramate (TOPAMAX) 50 mg tablet Take 1 tablet by mouth twice daily. Patient taking differently: Take 200 mg by mouth twice daily. taking venlafaxine ER (EFFEXOR XR) 75 mg 24 hr capsule Take 2 capsules by mouth once daily. taking ziprasidone (GEODON) 80 mg capsule Take 1 capsule by mouth twice daily. takes 1 in the am and 1 at bedtime. taking Rx meds not listed in EPIC: none OTCs: none Herbals: none GLYCEMIC CONTROL: ? Glucometer present at visit: No ? Hypoglycemia: reports she feels s/s sometimes but is not checking Last 3 Encounter BP Readings: Date: BP: 09/13/2017 108/62 08/22/2017 98/70 07/16/2017 104/68 Wt: 100.2 kg (221 lb) BMI: 40.42 kg/(m2) LABS Lab Results Component Value Date HBA1C 5.2 09/13/2017 HBA1C 5.2 05/14/2017 HBA1C 5.2 07/14/2016 CMP: Glucose 118 09/13/2017 BUN 16 09/13/2017 Creatinine 0.70 09/13/2017 Sodium 143 09/13/2017 Potassium 3.6 09/13/2017 Chloride 103 09/13/2017 CO2 25 09/13/2017 Protein, Total 6.7 09/13/2017 Albumin 3.9 09/13/2017 Calcium 9.2 09/13/2017 Alkaline Phosphatase 100 09/13/2017 Bilirubin, Total 0.2 09/13/2017 AST 16 09/13/2017 ALT 10 09/13/2017 Estimated Creatinine Clearance: 93.4 mL/min (based on SCr of 0.7 mg/dL). Last Lipid Panel Lab Results Component Value Date CHOL 142 04/05/2016 Lab Results Component Value Date HDL 48 04/05/2016 Lab Results Component Value Date LDL 69 04/05/2016 Lab Results Component Value Date TG 123 04/05/2016 Albumin/Creat Ratio (mg/g) Date Value 04/05/2016 <11 PHARMACOTHERAPY ASSESSMENT/PLAN: 1. Controlled type 2 diabetes mellitus without complication, unspecified jail insulin use status (HCC) - ICD9: 250.00, ICD10: E11.9 (primary diagnosis) A1c goal < 7%, patient is at goal (5.2% on 09/13). No SMBG data available. Discussed testing FBGs to ensure patient not having hypoglycemic episodes and she is agreeable. Appropriate to continue without therapy at this time. Not CGM candidate due to not on insulin or checking 4x per day (as required by Medicare). Renal fxn and LFTs WNL ? Instructed patient to start checking FBGs 3-4 times per week ? Report results to PharmD in two weeks 2. Essential hypertension - ICD9: 401.9, ICD10: I10 BP goal < 56574, pt is at goal without therapy. Will continue to monitor. Renal fxn and K+ WNL. 3. Hyperlipidemia, unspecified hyperlipidemia type - ICD9: 272.4, ICD10: E78.5 Pt is taking moderate statin intensity (indicated for high intensity d/t DM and ASCVD risk score 9.1%). LDL not elevated. Did not discuss change at this visit. Continue current therapy at this time and continue to monitor. LFTs and renal fxn WNL. ? CONTINUE pravastatin 80mg once daily Health Maintenance issues addressed: DIABETIC FOOT EXAM due on 02/25/2016 URINE ALBUMIN CREATININE RATIO due on 04/05/2017 LDL due on 04/05/2017 DILATED RETINAL EXAM due on 08/01/2017 Patient is scheduled to see PCP 12/17. Patient to return to clinic for PharmD f/u as requested by patient or PCP. Patient verbalized understanding of instructions. Lucy Sutherland, PedroD, BCPS CNOV Observed: 10/21/2017 Status: COMPLETED Source: [place] 3:30 PM [facility] REPOSITORY Office Visit ([facility]MEWO) AFSANEH LOWE ([id number]) 1955 F BLD Date Time Provider Department 10/21/17 3:30 PM KOKO (PHARMACIST)LUCY PHMEWDon During your visit today, we recorded the following information about you: MONA MEHTA 10/21/2017 5:04 PM Signed Patient consents to pharmacy collaborative practice agreement. REASON FOR CONSULT: DM GOALS: A1c < 7% CONSULTING PROVIDER: Dr. Phelps Date of Consult: 08/2017 Afsaneh Lowe is a 62 year old female was last seen in [facility] by PCP, Dr. ESTEBAN PHELPS MD on 09/13/17. Patient is presenting today for f/u pharmacotherapy management appointment for DM. At last PCP visit metformin was stopped d/t hypoglycemic episodes INTERIM HISTORY: Presents with Geno Reports doing ok overall Did fall and bump her head today because her dog pulled her down she states Denies any alarm symptoms or confusion Has not checked her BG since metformin was d/c Current DM Medications: none Current HTN Medications: none ROS: ? Patient denies CP, SOB, AUGUSTIN, blurred vision, dizziness or lightheadedness ? Patient denies symptoms of hypoglycemia (sweating, anxiety, palpitations, hunger, and tremor) ? Patient denies symptoms of hyperglycemia (polyuria, polydipsia, polyphagia) ? Patient denies potential medication adverse effects DIET/EXERCISE/SOCIAL Hx: ? Breakfast: oatmeal with lots of sugar ? Lunch: peanut butter toast ? Dinner: had peanut butter toast last night ? Exercise: no ? Tobacco: yes, 1/2 ppd, not interested in quitting ? Alcohol: denies ? Illicits: denies MEDICATIONS: ? Pill bottles are present. ? Adherence: denies missed doses. ? Pharmacy: [facility] ? Rx coverage: Medicare ? Affordability: no issues ? Organization System: [facility] ACTIVE PROBLEM LIST Mitral Valve Disorders(424.0) Diarrhea Benign Neoplasm of Colon Benign Neoplasm of Rectum and Anal Canal Gerd (Gastroesophageal Reflux Disease) Hiatal Hernia Right Rotator Cuff Tear Paranoid Schizophrenia (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) Osteoarthritis, Multiple Sites Shoulder Pain Chronic Knee Pain S/P Tkr (Total Knee Replacement) Calculus of Gallbladder With Chronic Cholecystitis Without Obstruction Umbilical Hernia Without Obstruction Or Gangrene Family History of Ischemic Heart Disease Opioid Abuse Restrictive Lung Disease Auditory Hallucination 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) Chronic Right Shoulder Pain Balance Disorder Use of Cane As Ambulatory Aid Impaired Vision Obesity, Class Iii, Bmi 40-49.9 (Morbid Obesity) ([facility]) PAST MEDICAL HISTORY Diagnosis Date - Abdominal pain, other specified site chronic - Arthritis - Asthma - Asthmatic bronchitis - Atypical chest pain - Auditory hallucinations 12/19/2014 [facility] - see scanned documents - Back pain - Benign neoplasm of colon - Blepharospasm - Bronchitis - Carpal tunnel syndrome of left wrist 04/06/2015 mild, nerve conduction study - CHF (congestive heart failure) ([facility]) - Constipation - COPD (chronic obstructive pulmonary disease) ([facility]) - Coronary disease - Degenerative arthritis of knee bilateral - Depression - Diarrhea - Epilepsy ([facility]) - Fibromyalgia - Hemorrhoids - Hypertension - IDDM (insulin dependent diabetes mellitus) ([facility]) - Intoxication with opioids ([facility]) + urine tox - Kidney stones - Kidney stones - Migraine - Mitral valve disorders - Narcotic abuse NO NARCOTICS, see OARRS, multiple providers - Obesity - Osteoporosis - Pneumonia - Renal failure - Restrictive lung disease 02/2015 - Right shoulder injury - Schizo affective schizophrenia ([facility]) Dr. Mcdonnell Psychiatrist - Seizures ([facility]) Pt. uses medical alert dog - Sleep disorder - Stroke ([facility]) - Suicidal ideations 12/19/2014 [facility] - see scanned documents - UTI (urinary tract infection) ALLERGIES Allergen Reactions - Bee Sting Anaphylaxis - Betadine [Povidone-* Unknown - Imitrex [Sumatripta* Vomiting - Tape [Adhesive Tape* Other: See Comments Patients states paper tape makes her blister Medication List Medication Directions Comments Action/Plan aspirin, enteric coated (ADULT LOW DOSE ASPIRIN) 81 mg EC tablet Take 1 tablet by mouth once daily. taking Discontinued: 10/21/2017 3:42 PM D/c by outside provider divalproex ER (DEPAKOTE ER) 250 mg 24 hr tablet None Entered taking Discontinued: 10/21/2017 3:45 PM Incorrect dose Haloperidol 20 mg tablet None Entered taking HYDROcodone-Acetaminophen (NORCO) 7.5-325 mg per tablet Take by mouth three times daily as needed. taking hydrOXYzine pamoate (VISTARIL) 25 mg capsule None Entered taking magnesium oxide (MAG-OX) 400 mg tablet TAKE 1 TABLET BY MOUTH DAILY taking meloxicam (MOBIC) 15 mg tablet None Entered taking methocarbamol (ROBAXIN) 500 mg tablet None Entered taking mupirocin (BACTROBAN) 2 % ointment Apply 1 application to affected area three times daily. nitroglycerin sublingual (NITROQUICK) 0.4 mg SL tablet Dissolve 1 tablet under the tongue every 5 minutes as needed for Chest Pain. olopatadine (PATANOL) 0.1 % ophthalmic solution USE 1 DROP IN BOTH EYES TWICE DAILY. Discontinued: 10/21/2017 3:47 PM D/c by outside provider OYSTER SHELL CALCIUM-VITAMIN D 500 mg(1,250mg) -200 unit per tablet TAKE 1 TABLET BY MOUTH DAILY taking phenytoin ER (DILANTIN) 100 mg ER capsule Takes 2 capsules 3 times per day Patient taking differently: Take 200 mg by mouth twice daily. Takes 2 capsules 3 times per day taking potassium chloride SR (MICRO-K) 10 mEq CR capsule Take 1 capsule by mouth twice daily. taking pravastatin (PRAVACHOL) 80 mg tablet TAKE 1 TABLET BY MOUTH AT BEDTIME taking rizatriptan (MAXALT) 10 mg tablet Take 10 mg by mouth as needed (one as neede for headache). May repeat in 2 hours if needed silver sulfADIAZINE (SILVADENE,THERMAZENE) 1 % cream Apply 1 application to affected area twice daily. topiramate (TOPAMAX) 50 mg tablet Take 1 tablet by mouth twice daily. Patient taking differently: Take 200 mg by mouth twice daily. taking venlafaxine ER (EFFEXOR XR) 75 mg 24 hr capsule Take 2 capsules by mouth once daily. taking ziprasidone (GEODON) 80 mg capsule Take 1 capsule by mouth twice daily. takes 1 in the am and 1 at bedtime. taking Rx meds not listed in EPIC: none OTCs: none Herbals: none GLYCEMIC CONTROL: ? Glucometer present at visit: No ? Hypoglycemia: reports she feels s/s sometimes but is not checking Last 3 Encounter BP Readings: Date: BP: 09/13/2017 108/62 08/22/2017 98/70 07/16/2017 104/68 Wt: 100.2 kg (221 lb) BMI: 40.42 kg/(m2) LABS Lab Results Component Value Date HBA1C 5.2 09/13/2017 HBA1C 5.2 05/14/2017 HBA1C 5.2 07/14/2016 CMP: Glucose 118 09/13/2017 BUN 16 09/13/2017 Creatinine 0.70 09/13/2017 Sodium 143 09/13/2017 Potassium 3.6 09/13/2017 Chloride 103 09/13/2017 CO2 25 09/13/2017 Protein, Total 6.7 09/13/2017 Albumin 3.9 09/13/2017 Calcium 9.2 09/13/2017 Alkaline Phosphatase 100 09/13/2017 Bilirubin, Total 0.2 09/13/2017 AST 16 09/13/2017 ALT 10 09/13/2017 Estimated Creatinine Clearance: 93.4 mL/min (based on SCr of 0.7 mg/dL). Last Lipid Panel Lab Results Component Value Date CHOL 142 04/05/2016 Lab Results Component Value Date HDL 48 04/05/2016 Lab Results Component Value Date LDL 69 04/05/2016 Lab Results Component Value Date TG 123 04/05/2016 Albumin/Creat Ratio (mg/g) Date Value 04/05/2016 <11 PHARMACOTHERAPY ASSESSMENT/PLAN: 1. Controlled type 2 diabetes mellitus without complication, unspecified jail insulin use status (HCC) - ICD9: 250.00, ICD10: E11.9 (primary diagnosis) A1c goal < 7%, patient is at goal (5.2% on 09/13). No SMBG data available. Discussed testing FBGs to ensure patient not having hypoglycemic episodes and she is agreeable. Appropriate to continue without therapy at this time. Not CGM candidate due to not on insulin or checking 4x per day (as required by Medicare). Renal fxn and LFTs WNL ? Instructed patient to start checking FBGs 3-4 times per week ? Report results to PharmD in two weeks 2. Essential hypertension - ICD9: 401.9, ICD10: I10 BP goal < 16111, pt is at goal without therapy. Will continue to monitor. Renal fxn and K+ WNL. 3. Hyperlipidemia, unspecified hyperlipidemia type - ICD9: 272.4, ICD10: E78.5 Pt is taking moderate statin intensity (indicated for high intensity d/t DM and ASCVD risk score 9.1%). LDL not elevated. Did not discuss change at this visit. Continue current therapy at this time and continue to monitor. LFTs and renal fxn WNL. ? CONTINUE pravastatin 80mg once daily Health Maintenance issues addressed: DIABETIC FOOT EXAM due on 02/25/2016 URINE ALBUMIN CREATININE RATIO due on 04/05/2017 LDL due on 04/05/2017 DILATED RETINAL EXAM due on 08/01/2017 Patient is scheduled to see PCP 12/17. Patient to return to clinic for PharmD f/u as requested by patient or PCP. Patient verbalized understanding of instructions. Lucy Sutherland PharmD, BCPS LUCY SUTHERLAND PHARMACIST 10/21/2017 4:08 PM Addendum Check sugar in the morning before eating 3 or 4 times per week Call Lucy around November 05 with your numbers Lucy Sutherland PharmD, BCPS [phone] Referring Provider: ESTEBAN PHELPS [[id number]] Allergies As of Date: 10/21/2017 Noted Allergy Reaction BEE STING 10/10/2012 10 - Anaphylaxis BETADINE (POVIDONE-IODINE) 12/17/2013 16 - Unknown IMITREX (SUMATRIPTAN SUCCINATE) 12/17/2005 11 - Vomiting TAPE (ADHESIVE TAPE (ROSINS)) 09/25/2012 14 - Other: See Comments Comments: Patients states paper tape makes her blister Date Reviewed: 09/13/2017 Reviewed by: Mariola Ny LPN - Fully Assessed Reason for Visit: Allied Health Visit [5] Cmt: DM follow-up Primary Visit Diagnosis:Controlled type 2 diabetes mellitus without complication, 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) [E11.9] Other Visit Diagnoses:Essential hypertension [I10] Hyperlipidemia, unspecified hyperlipidemia type [E78.5] Prescriptions as of 10/21/2017 Sig: HALOPERIDOL 20 MG TABLET HYDROXYZINE PAMOATE 25 MG CAP* MELOXICAM 15 MG TABLET DIVALPROEX ER 250 MG TABLET,E* METHOCARBAMOL 500 MG TABLET PRAVASTATIN 80 MG TABLET TAKE 1 TABLET BY MOUTH AT BED* POTASSIUM CHLORIDE ER 10 MEQ * Take 1 capsule by mouth twice* MAGNESIUM OXIDE 400 MG TABLET TAKE 1 TABLET BY MOUTH DAILY OYSTER SHELL CALCIUM-VITAMIN * TAKE 1 TABLET BY MOUTH DAILY PHENYTOIN SODIUM EXTENDED 100* Takes 2 capsules 3 times per * Patient taking differently: Take 200 mg by mouth twice da* TOPIRAMATE 50 MG TABLET Take 1 tablet by mouth twice * Patient taking differently: Take 200 mg by mouth twice da* VENLAFAXINE ER 75 MG CAPSULE,* Take 2 capsules by mouth once* HYDROCODONE 7.5 MG-ACETAMINOP* Take by mouth three times da* ASPIRIN 81 MG TABLET,DELAYED * Take 1 tablet by mouth once d* * ZIPRASIDONE 80 MG CAPSULE Take 1 capsule by mouth twice* COMPOUNDED PRESCRIPTION ADULT DIAPERS NEEDS MORE ABSO* COMPOUNDED PRESCRIPTION Diabetic booster 2 cases per* NEBULIZER ACCESSORIES KIT Dispense new tubing, medicati* ALBUTEROL SULFATE HFA 90 MCG/* INHALE 2 PUFFS BY MOUTH EVERY* COMPOUNDED PRESCRIPTION DIGITAL BLOOD PRESSURE CUFF F* COMPOUNDED PRESCRIPTION First Alert Dx: G40.309, R26.* COMPOUNDED PRESCRIPTION Washable [place] Bed pads Change* BLOOD SUGAR DIAGNOSTIC STRIPS Test blood sugar(s) 4 times d* LANCETS 33 GAUGE Test blood sugars four times * NUTRITION TX GLU INTOL,LAC-FR* Take 1 Each by mouth once qiana* ALBUTEROL SULFATE 2.5 MG/3 ML* Use 3 mL via nebulizer every * EPINEPHRINE 0.3 MG/0.3 ML INJ* as needed for allergic anaphy* COMPOUNDED PRESCRIPTION LIFT MECHANISM FOR LIFT CHAIR* COMPOUNDED PRESCRIPTION RAISED TOILET SEAT WITH ARMS * OLOPATADINE 0.1 % EYE DROPS USE 1 DROP IN BOTH EYES TWICE* COMPOUNDED PRESCRIPTION Dispense wheeled walker with * NITROGLYCERIN 0.4 MG SUBLINGU* Dissolve 1 tablet under the t* ALCOHOL PREP PADS USE TWICE DAILY COMPOUNDED PRESCRIPTION High Back Shower Chair that h* RIZATRIPTAN 10 MG TABLET Take 10 mg by mouth as needed* COMPOUNDED PRESCRIPTION KNEE HIGH COMPRESSION STOCKIN* MUPIROCIN 2 % TOPICAL OINTMENT Apply 1 application to affect* COMPOUNDED PRESCRIPTION 1 Device as needed. NEBULIZER* COMPOUNDED PRESCRIPTION Registered Nurse services in * COMPOUNDED PRESCRIPTION Nurses Aid in home care, 33 h* BLOOD-GLUCOSE METER KIT Glucose Meter of Choice - Kit* SILVER SULFADIAZINE 1 % TOPIC* Apply 1 application to affect* Problem List As Of Date 10/21/2017 Noted Resolved MITRAL VALVE DISORDER [I05.9] DIARRHEA NOS [R19.7] INVALID FOR* Benign neoplasm of colon [D12.6] INVALID FOR* Benign neoplasm of rectum and anal canal [D12.8*INVALID FOR* GERD (gastroesophageal reflux disease) [K21.9] INVALID FOR* Hiatal hernia [K44.9] INVALID FOR* Right rotator cuff tear [M75.101] INVALID FOR* Paranoid schizophrenia (HCC) [F20.0] INVALID FOR* Blepharospasm [G24.5] INVALID FOR* Hypertension [I10] INVALID FOR* Hyperlipidemia [E78.5] INVALID FOR* Intractable migraine without aura [G43.019] INVALID FOR*03/13/2016 Intractable migraine with aura [G43.119] INVALID FOR* 8.2.3 Analgesic overuse headache [F55.2] [339.3*INVALID FOR* Constipation [K59.00] Abdominal pain, other specified site [R10.9] Kidney stones [N20.0] Diabetes mellitus type 2, controlled, without c*INVALID FOR* Osteoarthritis, multiple sites [M15.9] INVALID FOR* Shoulder pain [M25.519] INVALID FOR* Chronic knee pain [M25.569, G89.29] INVALID FOR* S/P TKR (total knee replacement) [Z96.659] INVALID FOR* Calculus of gallbladder with chronic cholecysti*INVALID FOR* Umbilical hernia without obstruction or gangren*INVALID FOR* Family history of ischemic heart disease [Z82.4*INVALID FOR* Opioid abuse [F11.10] INVALID FOR* More... 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] INVALID FOR* Chronic right shoulder pain [M25.511, G89.29] INVALID FOR* Balance disorder [R26.89] INVALID FOR* Use of cane as ambulatory aid [R26.2] INVALID FOR* Impaired vision [H54.7] INVALID FOR* Obesity, Class III, BMI 40-49.9 (morbid obesity*INVALID FOR* Other instructions from your clinician: Check sugar in the morning before eating 3 or 4 times per week Call Lucy around November 05 with your numbers Pedro MehtaD, [facility] [phone] Medications Discontinued During This Encounter clonazePAM (KLONOPIN) 1 mg tablet 06/14/2014 10/21/2017 Class: Historical Med Route: ORAL Sig: Take 1 tablet by mouth three times daily as needed. Disc: Discontinued by another Health Care Provider haloperidol (HALDOL) 5 mg tablet 0 10/12/2016 10/21/2017 Class: Historical Med Si tablets three times daily. Disc: Discontinued by another Health Care Provider oxybutynin ER (DITROPAN XL) 10 mg 24* 30 t* 11 02/05/2017 10/21/2017 Route: ORAL Sig: Take 1 tablet by mouth once daily. Disc: Discontinued by Patient topiramate (TOPAMAX) 200 mg tablet 09/25/2017 10/21/2017 Class: Historical Med Sig: Disc: Duplicate Entry venlafaxine ER (EFFEXOR XR) 150 mg 2* 03/12/2017 10/21/2017 Class: Historical Med Sig: EFFEXOR XR 150 MG [id number] Disc: Duplicate Entry Encounter Status:Closed by KOKO (PHARMACIST)LUCY on 10/21/17 EMERGENCY REPORT Observed: 2017 Status: F Source: [facility] 7:35 PM [facility] EMERGENCY ROOM REPORT NAME ACCOUNT SEX AGE ADMIT DISCHARGE PT MED. RECORD# NUMBER DATE DATE TYPE AFSANEH LOWE [id number] F 61 10/01/17 10/01/17 3 M [id number] ROOM: ER DATE OF : 1955 DICTATING PHYSICIAN: Aryan Zarco CHIEF COMPLAINT: Patient had a fall. HISTORY OF PRESENT ILLNESS: She was outside her home with her walker when she tripped and fell. She landed on her right hip and left small finger, hand area, where she has swelling and ecchymosis. She was having pain and she came to the emergency department tonight. She did this last evening. She denied any neck pain. No chest pain. No shortness of breath. Denies any head pain and presents to the emergency department with her friend and caregiver who they say is acting normal. PAST MEDICAL HISTORY: She has a history of CHF, hypertension, COPD, asthma, anxiety, seizure disorder. She has had bilateral knee replacement, kidney stones. SOCIAL HISTORY: She does smoke. She rarely uses alcohol. REVIEW OF SYSTEMS: Ten systems reviewed and were negative except as mentioned above. PHYSICAL EXAMINATION: She is afebrile. Pulse 94, respirations 18, blood pressure 143/84, pulse ox 93% on room air. Head is normocephalic, atraumatic. Eyes: Pupils equal, round reactive to light. Extraocular muscles intact. Nares are patent. Throat has adequate moisture. Uvula is midline. Neck is supple. Heart regular without murmur. S1 equals S2. No S3 or S4 appreciated. Lungs are clear to auscultation bilaterally. No rales, rhonchi, retractions. Abdomen is soft, nontender, nondistended. Skin is warm and dry. Does have ecchymosis to the left small finger. Limited range of motion secondary to the pain. She has generalized hip tenderness. DIAGNOSTIC DATA: She had x-rays obtained, which are unremarkable other than some degenerative changes. DIAGNOSES: 1. Status post fall. 2. Right hip contusion. 3. Left hand, small finger contusion. PLAN/DISPOSITION: Will place her in a splint for her left small finger. She is to follow up with Dr. Fair in 2 to 3 days. She was given Percocet here. She will be given Page 1 of 2 AFSANEH LOWE Emergency Room Report head injury instruction sheet and discharged in stable condition. Dictated By: Aryan Zarco DO 10/01/17 22:15 JOB #: [id number] Transcribed By: lara 10/02/17 06:42 Electronically signed by: ANN Zarco D.O. 10/02/17 19:33 Page 2 of 2 AFSANEH OLWE Emergency Room Report HIP COMPLETE RT MIN 2 Observed: 10/01/2017 Status: F Source: [facility] VIEWS W/PELVIS 9:55 PM [place] [address] Patient: AFSANEH LOWE. Phone#: : [phone] Age: 61 Gender: F Pt. Type: ER Account: [id number] Location: 052 Ordering: [facility] [place] Exam Date: 10/01/2017/21:42 Family Phys: DR. WALLACE FAIR D.O.Charge Code: [id number] Physician: Lajas Order #: [id number] DLP Dose#: PROCEDURE: X-RAY HIP RT COMPLETE MIN 2 VIEWS W/PELVIS COMPARISON: None. INDICATIONS: Trauma FINDINGS: BONES: No acute osseous abnormality. There is right hip with joint space loss and femoral head spurring consistent with osteoarthritic changes. No evidence of fracture or dislocation. SOFT TISSUES: Negative. No visible soft tissue swelling. EFFUSION: None visible. OTHER: Negative. CONCLUSION: 1. No appreciable acute osseous abnormality. Note: A nondisplaced fracture may not be initially evident on radiograph. 2. Osteoarthritic changes of the right hip. Dictated by: Cathy Dawn MD on 2017 at 9:16 Approved by: Cathy Dawn MD on 2017 at 9:16 HAND LT MIN 3 VIEWS Observed: 10/01/2017 Status: F Source: [facility] 9:55 PM [place] [address] Patient: AFSANEH LOWE Phone#: : 1955 Age: 61 Gender: F Pt. Type: ER Account: [id number] Location: 2 Ordering: [facility] [place] Exam Date: 10/01/2017/21:46 Family Phys: DR. WALLACE FAIR D.O.Charge Code: [id number] Physician: Lajas Order #: [id number] DLP Dose#: PROCEDURE: X-RAY HAND LT COMPLETE 3 VIEWS COMPARISON: None. INDICATIONS: Trauma FINDINGS: BONES: No acute fracture or dislocation. There is a cyst in the scaphoid. There is joint space loss of the fifth PIP. SOFT TISSUES: Soft tissue swelling of the fifth digit. EFFUSION: None visible. OTHER: Negative. CONCLUSION: 1. Soft tissue swelling without evidence of acute osseous abnormality. 2. Cyst in the scaphoid. Dictated by: Cathy Dawn MD on 2017 at 9:19 Approved by: Cathy Dawn MD on 2017 at 9:19 CNCO Observed: 09/26/2017 Status: COMPLETED Source: [place] 12:00 AM [facility] REPOSITORY Letter Text [address] [place] [address] [phone] 09/26/2017 Afsaneh Lowe [address] [facility] [address] [facility] [address] Dear Ms. Lowe: Due to a change in the provider's schedule, it has been necessary to reschedule your appointment. Enclosed please find a new appointment reminder that will replace the one previously sent to you. Your appointment on 12/16/[address] Phelps has been rescheduled Your appointment is now on 12/17/17 at 3pm with Young Suh ([facility]) If this appointment is not convenient for you, please contact our office at [phone]. Thank you for choosing the [facility] as your Healthcare Provider. Sincerely, Appointment Office EMERGENCY REPORT Observed: 09/18/2017 Status: F Source: [place] 7:37 AM [facility] EMERGENCY ROOM REPORT NAME ACCOUNT SEX AGE ADMIT DISCHARGE PT MED. RECORD# NUMBER DATE DATE TYPE AFSANEH LOWE [id number] F 61 09/12/17 09/12/17 3 M [id number] ROOM: ER DATE OF : 1955 DICTATING PHYSICIAN: Darwin Antunez CHIEF COMPLAINT: Dizziness. HISTORY OF PRESENT ILLNESS: The patient over the last month has felt intermittently weak and dizzy. She states that she awoke this morning and had a seizure. She had not had a seizure for about 6 months. She states that when she had a seizure she fell out of bed and hit her right hand on the counter and is complaining of right hand and left knee pain since. Since her seizure she has felt a little more dizzy, and her blood pressure was low so she presents here for evaluation. She is not complaining of any chest pain or shortness of breath. PAST MEDICAL HISTORY: Significant for asthma, COPD, previous seizure disorder, diabetes, and coronary artery disease. MEDICATIONS: She is on multiple medications, including Depakote. ALLERGIES: She has allergies to Imitrex and bee stings. SOCIAL HISTORY: She lives at home, accompanied here with a friend. She does smoke. She does not drink alcohol. REVIEW OF SYSTEMS: The patient has been seen a number of times in the ED. She has not had any fever. No bowel or bladder symptoms. PHYSICAL EXAMINATION: This is a 61-year-old female who is awake and alert. She responds appropriately. She does not appear toxic or in acute distress. She is wearing dark glasses, and upon removal of those her pupils are equal, round, and reactive to light. Extraocular muscles are intact. Nose, mouth and throat are all within normal limits. Her neck is supple without carotid bruits or masses. Her lungs are clear without crackles or wheezes. Cardiac examination is a regular rhythm without any ectopy, murmurs, gallops or rubs. Abdomen is obese but soft and nontender. She does move all extremities appropriately. She does have a bruise to her right hand which appears to be about 2-3 days old just from the appearance of this, though she states this is what she bumped when she fell this morning. Minimal soft tissue swelling. There are no open areas. Normal range of motion. She complains of pain to her left knee though has old knee incisions but no acute redness or swelling. She moves all extremities without any clubbing, cyanosis or edema. Page 1 of 2 AFSANEH LOWE Emergency Room Report DIAGNOSTIC DATA: CBC showed a white count of 13,000, unremarkable differential, and H&H of 13.4 and 39.7. PT and PT-INR were normal. Troponin was 0. CMP was essentially all within normal limits. Valproate level was obtained; it was low at 35. X-ray of her right hand and left knee showed no acute abnormalities. EMERGENCY DEPARTMENT COURSE AND TREATMENT: The patient had an IV placed. She was initially given some Toradol IV and tramadol p.o. A number of laboratory studies were obtained. DIAGNOSES: 1. Seizure disorder with breakthrough seizure. 2. Fall with scattered contusions. PLAN/DISPOSITION: Discussed management with her. She is to follow up with her family physician or neurologist within the next 2 to 3 days, returning if symptoms worsen. Dictated By: Darwin Antunez MD 09/12/17 17:45 JOB #: [id number] Transcribed By: ijeoma 09/13/17 14:24 Electronically signed by: ANN Antunez M.D. 09/18/17 07:36 Page 2 of 2 AFSANEH LOWE Emergency Room Report COMP METABOLIC PANEL Collected: 09/13/2017 Status: F Source: [place] 10:52 AM [facility] REPOSITORY TYPE CODE TESTS RESULT OUT OF REFERENCE UNITS RANGE LAB TP 6.3-8.0 g/dL Protein, Total 6.7 LAB ALB 3.9-4.9 g/dL Albumin 3.9 LAB CA 8.5-10.2 mg/dL Calcium, Total 9.2 LAB TBIL 0.2-1.3 mg/dL Bilirubin, Total 0.2 LAB ALKP 32-117 U/L Alkaline Phosphatase 100 LAB AST 13-35 U/L AST 16 LAB GLU 74-99 mg/dL Glucose High 118 Result Comment: The [place] Diabetes Association (ADA) provides guidance for cutoff values for fasting glucose and random glucose. The ADA defines fasting as no caloric intake for at least 8 hours. Fas ting plasma glucose results between 100 to 125 mg/dL indicate increased risk for diabetes (prediabetes). Fasting plasma glucose results greater than or equal to 126 mg/dL meet the criteria for diagnosis of diabetes. In the absence of unequivocal hyperglycemia, results should be confirmed by repeat testing. In a patient with classic symptoms of hyperglycemia or hyperglycemic crisis, random plasma glucose results greater than or equal to 200 mg/dL meet the criteria for diagnosis of diabetes. Reference: Standards of Medical Care in Diabetes 2016, [place] Diabetes Association. Diabetes Care. 2016.39(Suppl 1). LAB BUN 7-21 mg/dL BUN 16 LAB CRET 0.58-0.96 mg/dL Creatinine 0.70 LAB NA 136-144 mmol/L Sodium 143 LAB K 3.7-5.1 mmol/L Potassium Low 3.6 LAB CL 97-105 mmol/L Chloride 103 LAB CO2 22-30 mmol/L CO2 25 LAB AGAP 9-18 mmol/L Anion Gap 15 LAB ALT 7-38 U/L ALT 10 LAB GFRAA eGFR- Amer. >60 LAB GFRNAA . eGFR-All Other Races >60 Result Comment: eGFR (Estimated GFR) Units of measure: mL/min/1.73 meters squared eGFR is derived from the reexpressed MDRD Study equation using the following parameters: serum creatinine, age, gender and race. The creatinine assay has been calibrated to be traceable to IDMS. An eGFR <60 mL/min/1.73m2 for >3 months is consistent with chronic kidney disease. Refer to KDOQI guidelines for clinical interpretation. In patients with unstable renal function, e.g. those with acute kidney injury, the eGFR may not accurately reflect actual GFR. Performed By: #### CMP, TSH, HBA1C, VITD #### [facility] [employer] [address] [place] [address] TSH Collected: 09/13/2017 Status: F Source: [place] 10:52 AM [facility] REPOSITORY TYPE CODE TESTS RESULT OUT OF RANGE REFERENCE UNITS LAB TSH 0.400-5.500 uU/mL TSH 3.900 Performed By: #### CMP, TSH, HBA1C, VITD #### [facility] [employer] [address] [place] [place] [address] HEMOGLOBIN A1C Collected: 09/13/2017 Status: F Source: [place] 10:52 AM [facility] REPOSITORY TYPE CODE TESTS RESULT OUT OF REFERENCE UNITS RANGE LAB HGBA1C 4.3-5.6 % Hemoglobin A1c 5.2 LAB HBA0 mg/dL Est. Average Glucose 103 Result Comment: eAG: (Estimated average glucose) is a calculated value from HgbA1c and is technology sales representative of the average blood glucose level in the last 2-3 month period. Performed By: #### CMP, TSH, HBA1C, VITD #### [facility] [employer] [address] [place] [address] VITAMIN D 25 HYDROXY Collected: 09/13/2017 Status: F Source: [place] 10:52 AM [facility] REPOSITORY TYPE CODE TESTS RESULT OUT OF REFERENCE UNITS RANGE LAB VITD 31.0-80.0 ng/mL Vitamin D 25 33.1 Hydroxy Result Comment: Classification of 25 OH Vitamin D status: Insufficiency/Moderate Deficiency: < or = 30 ng/mL Sufficiency/Optimal Levels: 31 to 80 ng/mL Toxicity: > 100 ng/mL Test performed by chemiluminescent immunoassay. Performed By: #### CMP, TSH, HBA1C, VITD #### [facility] [employer] [address] [place] [address] CNOV Observed: 09/13/2017 Status: COMPLETED Source: [place] 9:20 AM [facility] REPOSITORY Office Visit (INTMWS) AFSANEH LOWE ([id number]) 1955 F BLD Date Time Provider Department 09/13/17 9:20 AM ESTEBAN PHELPS During your visit today, we recorded the following information about you: Pulse Respiration Blood pressure Weight 85/minute 14/minute 108/62 99.3 kg Height 1.575 m ESTEBAN PHELPS MD 09/13/2017 5:23 PM Signed Reason for Visit Patient presents with: Establish Care: transfer care from , had seizure 2 days ago Afsaneh Lowe is a 61 year old female who presents here today for Above Complaints.. Health Maintenance HPV EVERY 5 YEARS DIABETIC FOOT EXAM URINE ALBUMIN CREATININE RATIO LDL DILATED RETINAL EXAM HPI She would like to transfer from Dr Fair, has multiple issues today. Blood pressure is low, needs to titrate the blood sugar medication and depression medication, and she had a seizure. Here in the office she is sleepy, seems a little slow. Her hba1c was 5.1 in April and she has been taking 2 metformin at 500 mg BID. Says she feels like this every day at the time. She has been actively trying to loose weight and has lost around 10 pounds., so not eating much and taking regular dose of medication , she notes she may be having lows. She is sleepy all the time She says she had a seizure 2 days ago, she woke up on the floor., did take all seizure medication did not check sugars. Had a PSG . Obtained report from [facility] on 06/19/2017. Patient shows no signs of ANTONY. She has not seen a sleep doctor. Patient continues to struggle with sleeping too much in the day, she does take a lot of medication that would make her sleepy, like phenytoin, divalporax, and geodon at 80 mgs, along with vicodin 3 times a day. Sees psych at [facility] Denies CP, SOB, palpitations. She has asthma.... she notes, uses her inhaler 4/5 times a day. No problem-specific Assessment AND Plan notes found for this encounter. PAST MEDICAL HISTORY Diagnosis Date - Abdominal pain, other specified site chronic - Arthritis - Asthma - Asthmatic bronchitis - Atypical chest pain - Auditory hallucinations 12/19/2014 [facility] - see scanned documents - Back pain - Benign neoplasm of colon - Blepharospasm - Bronchitis - Carpal tunnel syndrome of left wrist 04/06/2015 mild, nerve conduction study - CHF (congestive heart failure) ([facility]) - Constipation - COPD (chronic obstructive pulmonary disease) ([facility]) - Coronary disease - Degenerative arthritis of knee bilateral - Depression - Diarrhea - Epilepsy ([facility]) - Fibromyalgia - Hemorrhoids - Hypertension - IDDM (insulin dependent diabetes mellitus) ([facility]) - Intoxication with opioids ([facility]) + urine tox - Kidney stones - Kidney stones - Migraine - Mitral valve disorders - Narcotic abuse NO NARCOTICS, see O[facility], multiple providers - Obesity - Osteoporosis - Pneumonia - Renal failure - Restrictive lung disease 02/2015 - Right shoulder injury - Schizo affective schizophrenia ([facility]) Dr. Mcdonnell Psychiatrist - Seizures ([facility]) Pt. uses medical alert dog - Sleep disorder - Stroke ([facility]) - Suicidal ideations 12/19/2014 [facility] - see scanned documents - UTI (urinary tract infection) PAST SURGICAL HISTORY Procedure Laterality Date - COLONOSCOP W/ OR W/O [facility] SPEC 07/03/2010 Colonoscopy - COLONOSCOP W/ OR W/O [facility] SPEC 01/21/2014 Colonoscopy - EGD W/O OR W/BRUSH/WASH 01/21/2014 EGD - EYE SURGERY HX 1999 - F LITHOTRIPSY 2013 kidney stones - LAP CHOLECYSTECT/CHOLANGIOGRAPHY 12/22/14 failed IOC due to small duct - LAPAROSCOPIC TUBAL LIGATION/RING/CLIP 84 - NAIL AVULSION, E/A NAIL Bilateral greast nails - PAST SURGICAL HISTORY OF teeth pulled - TOTAL KNEE REPLACEMENT 2013 bilateral knee replacement Left 04/2012/ right 09/2012 FAMILY HISTORY Problem Relation Age of Onset - Headache Mother migraines - Cancer Mother Bladder - mental illness [OTHER] Mother - Diabetes Father heart - Headache Father migraine - Alzheimer's Disease Father 65 - Heart Father - Hypertension Father - Seizures Father - Stroke Father - Colon Cancer Maternal Grandmother - mental illness [OTHER] Daughter - schizophrenia [OTHER] Daughter and bipolar - Cancer Other Social History Substance Use Topics - Smoking status: Current Every Day Smoker Packs/day: 1.00 Years: 3.00 Types: Cigarettes - Smokeless tobacco: Never Used - Alcohol use No Past medical history, appointments, medications, allergies reviewed. Pertinent Lab/Diagnostic Studies are reviewed and discussed today Current Outpatient Prescriptions: - albuterol HFA (PROAIR HFA) 90 mcg/actuation inhaler - magnesium oxide (MAG-OX) 400 mg tablet - Blood Pressure Cuff - Home Use - pravastatin (PRAVACHOL) 80 mg tablet - OYSTER SHELL CALCIUM-VITAMIN D 500 mg(1,250mg) -200 unit per tablet - EPINEPHrine (EPIPEN, AUVI-Q) 0.3 mg/0.3 mL auto-injector - metFORMIN (GLUCOPHAGE) 500 mg tablet - olopatadine (PATANOL) 0.1 % ophthalmic solution - haloperidol (HALDOL) 5 mg tablet - phenytoin ER (DILANTIN) 100 mg ER capsule - topiramate (TOPAMAX) 50 mg tablet - nitroglycerin sublingual (NITROQUICK) 0.4 mg SL tablet - venlafaxine ER (EFFEXOR XR) 75 mg 24 hr capsule - rizatriptan (MAXALT) 10 mg tablet - aspirin, enteric coated (ADULT LOW DOSE ASPIRIN) 81 mg EC tablet - ziprasidone (GEODON) 80 mg capsule - COMPOUNDED PRESCRIPTION - Nebulizer Accessories kit - COMPOUNDED PRESCRIPTION - COMPOUNDED PRESCRIPTION - COMPOUNDED PRESCRIPTION - blood sugar diagnostic (BLOOD GLUCOSE TEST) test strip - lancets (ONE TOUCH DELICA) 33 gauge mis - nut.tx.gluc intol,lf,soy-fiber (BOOST GLUCOSE CONTROL) 0.06-1.1 gram-kcal/mL liqd - oxybutynin ER (DITROPAN XL) 10 mg 24 hr tablet - albuterol (PROVENTIL) 2.5 mg /3 mL (0.083 %) nebulizer solution - COMPOUNDED PRESCRIPTION - COMPOUNDED PRESCRIPTION - COMPOUNDED PRESCRIPTION - ALCOHOL PREP PADS padm - COMPOUNDED PRESCRIPTION - HYDROcodone-Acetaminophen (NORCO) 7.5-325 mg per tablet - Compression Knee Highs - mupirocin (BACTROBAN) 2 % ointment - COMPOUNDED PRESCRIPTION - COMPOUNDED PRESCRIPTION - COMPOUNDED PRESCRIPTION - Blood-Glucose Meter monitoring kit - silver sulfADIAZINE (SILVADENE,THERMAZENE) 1 % cream - clonazePAM (KLONOPIN) 1 mg tablet Review of Systems CONSTITUTIONAL: No fevers, chills night sweats, unintended weight loss CARDIOVASCULAR: No chest pain, dyspnea, palpitations, orthopnea, PND, ankle edema. PULM: No dyspnea, unexplained cough. GI: No dysphagia/odynophagia, problematic reflux, constipation, diarrhea, changes in stool habits, hematochezia, melena. : No new urinary complaints, including dysuria, gross hematuria or pyuria. NEURO: No new balance problems, peripheral weakness/paresthesias or numbness of concern. Physical Exam BP 108/62 (BP Site: Left Arm, BP Position: Sitting, BP Cuff Size: Large Adult) Pulse 85 Resp 14 Ht 157.5 cm (5' 2) Wt 99.3 kg (219 lb) SpO2 97% BMI 40.06 kg/m? General appearance: appears to be drowsy although she responds when we talk to her, in no acute distress, well nourished. Skin: Skin color, texture, turgor normal, no suspicious rashes or lesions Head: Normocephalic, no masses, lesions, tenderness or abnormalities Eyes: Anicteric sclera. Pupils are equally round and reactive to light. Extraocular movements are intact. Lungs: Lungs clear to auscultation. No wheezing, rhonchi, rales Heart: RRR without murmur, gallop, or rubs. Extremities: No deformities, edema, skin discoloration, clubbing or cyanosis. Good capillary refill. ASSESSMENT/PLAN: 1. Controlled type 2 diabetes mellitus without complication, unspecified whether jail insulin use (HCC) - ICD9: 250.00, ICD10: E11.9 (primary diagnosis) Stop metformin, as she may be having a lot of lows,, need CGM We had to give her a drink and cereal bar for sugars in the office today - HGB A1C - DM CGM-DIAGNOSTIC - COMP METABOLIC PANEL - TSH BLD 2. Restrictive lung disease - ICD9: 518.89, ICD10: J98.4 - NEBULIZER ACCESSORIES KIT 3. Generalized convulsive epilepsy (HCC) - ICD9: 345.10, ICD10: G40.309 She seems to be taking her medication like she should Wonder if she has hypoglycemia and that is the reason for her seizures? 4. Obesity, Class III, BMI 40-49.9 (morbid obesity) (HCC) - ICD9: 278.01, ICD10: E66.01 She has been actively trying to reduce weight, stop metformin 5. Hypoglycemia - ICD9: 251.2, ICD10: E16.2 - DM CGM-DIAGNOSTIC 6. Vitamin D deficiency - ICD9: 268.9, ICD10: E55.9 - VITAMIN D 25 HYDROXY 7. Paranoid schizophrenia (HCC) - ICD9: 295.30, ICD10: F20.0 She is on geodon. Sees psych at [facility] Spent more than 40 mins with the patient ESTEBAN HPELPS MD Referring Provider: SELF [[id number]] Allergies As of Date: 09/13/2017 Noted Allergy Reaction BEE STING 10/10/2012 10 - Anaphylaxis BETADINE (POVIDONE-IODINE) 12/17/2013 16 - Unknown IMITREX (SUMATRIPTAN SUCCINATE) 12/17/2005 11 - Vomiting TAPE (ADHESIVE TAPE (ROSINS)) 09/25/2012 14 - Other: See Comments Comments: Patients states paper tape makes her blister Date Reviewed: 09/13/2017 Reviewed by: Mariola Ny LPN - Fully Assessed Reason for Visit: Establish Care [42] Cmt: transfer care from , had seizure 2 days ago Primary Visit Diagnosis:Controlled type 2 diabetes mellitus without complication, unspecified whether jail insulin use (HCC) [E11.9] Other Visit Diagnoses:Restrictive lung disease [J98.4] Generalized convulsive epilepsy (HCC) [G40.309] Obesity, Class III, BMI 40-49.9 (morbid obesity) ([facility]) [E66.01] Hypoglycemia [E16.2] Vitamin D deficiency [E55.9] Paranoid schizophrenia (HCC) [F20.0] Excessive sleepiness [G47.10] Mixed stress and urge urinary incontinence [N39.46] Order(s):COMPOUNDED PRESCRIPTIONDiabetic booster 2 cases per month. Dx isDisp: 2 EachRfl: 0 Nebulizer Accessories kitDispense new tubing, medication chamber and mouth pieces for use with Nebulizer. ICD10 codeDisp: 3 KitRfl: 3 albuterol HFA (PROAIR HFA) 90 mcg/actuation inhalerINHALE 2 PUFFS BY MOUTH EVERY 6 HOURS NEEDEDDisp: 1 InhalerRfl: 2 HGB A1C [[id number]] Order #: [id number] FUTURE DM CGM-DIAGNOSTIC [[id number]] Order #: [id number]: 1 COMP METABOLIC PANEL [SQCMP] Order #: [id number] FUTURE TSH BLD [SQTSH] Order #: [id number] FUTURE VITAMIN D 25 HYDROXY [SQVITD] Order #: [id number] FUTURE LUNG VOLUMES [[id number]] Order #: [id number] FUTURE SPIROMETRY WITH DILATOR IF OBSTRUCTED [[id number]] Order #: [id number] FUTURE CONSULT TO SLEEP MEDICINE - ADULT [[id number]] Order #: [id number]: 1 CONSULT TO AMBULATORY CLINIC PHARMACY [[id number]] Order #: [id number]: 1 COMPOUNDED PRESCRIPTIONADULT DIAPERS NEEDS MORE ABSORBANT TYPE, USING 12 DAILY DX N32 N39.3 R39.15 N39.41 N81.11 N81.4Disp: 360 EachRfl: 3 Prescriptions as of 09/13/2017 Sig: ALBUTEROL SULFATE HFA 90 MCG/* INHALE 2 PUFFS BY MOUTH EVERY* MAGNESIUM OXIDE 400 MG TABLET TAKE 1 TABLET BY MOUTH DAILY COMPOUNDED PRESCRIPTION DIGITAL BLOOD PRESSURE CUFF F* PRAVASTATIN 80 MG TABLET TAKE 1 TABLET BY MOUTH AT BED* OYSTER SHELL CALCIUM-VITAMIN * TAKE 1 TABLET BY MOUTH DAILY EPINEPHRINE 0.3 MG/0.3 ML INJ* as needed for allergic anaphy* OLOPATADINE 0.1 % EYE DROPS USE 1 DROP IN BOTH EYES TWICE* HALOPERIDOL 5 MG TABLET 8 tablets three times daily. PHENYTOIN SODIUM EXTENDED 100* Takes 2 capsules 3 times per * TOPIRAMATE 50 MG TABLET Take 1 tablet by mouth twice * NITROGLYCERIN 0.4 MG SUBLINGU* Dissolve 1 tablet under the t* VENLAFAXINE ER 75 MG CAPSULE,* Take 2 capsules by mouth once* RIZATRIPTAN 10 MG TABLET Take 10 mg by mouth as needed* ASPIRIN 81 MG TABLET,DELAYED * Take 1 tablet by mouth once d* * ZIPRASIDONE 80 MG CAPSULE Take 1 capsule by mouth twice* COMPOUNDED PRESCRIPTION Diabetic booster 2 cases per* NEBULIZER ACCESSORIES KIT Dispense new tubing, medicati* COMPOUNDED PRESCRIPTION ADULT DIAPERS NEEDS MORE ABSO* COMPOUNDED PRESCRIPTION First Alert Dx: G40.309, R26.* COMPOUNDED PRESCRIPTION Washable [place] Bed pads Change* BLOOD SUGAR DIAGNOSTIC STRIPS Test blood sugar(s) 4 times d* LANCETS 33 GAUGE Test blood sugars four times * NUTRITION TX GLU INTOL,LAC-FR* Take 1 Each by mouth once qiana* OXYBUTYNIN CHLORIDE ER 10 MG * Take 1 tablet by mouth once d* ALBUTEROL SULFATE 2.5 MG/3 ML* Use 3 mL via nebulizer every * COMPOUNDED PRESCRIPTION LIFT MECHANISM FOR LIFT CHAIR* COMPOUNDED PRESCRIPTION RAISED TOILET SEAT WITH ARMS * COMPOUNDED PRESCRIPTION Dispense wheeled walker with * ALCOHOL PREP PADS USE TWICE DAILY COMPOUNDED PRESCRIPTION High Back Shower Chair that h* HYDROCODONE 7.5 MG-ACETAMINOP* Take by mouth three times da* COMPOUNDED PRESCRIPTION KNEE HIGH COMPRESSION STOCKIN* MUPIROCIN 2 % TOPICAL OINTMENT Apply 1 application to affect* COMPOUNDED PRESCRIPTION 1 Device as needed. NEBULIZER* COMPOUNDED PRESCRIPTION Registered Nurse services in * COMPOUNDED PRESCRIPTION Nurses Aid in home care, 33 h* BLOOD-GLUCOSE METER KIT Glucose Meter of Choice - Kit* SILVER SULFADIAZINE 1 % TOPIC* Apply 1 application to affect* CLONAZEPAM 1 MG TABLET Take 1 tablet by mouth three * Problem List As Of Date 09/13/2017 Noted Resolved MITRAL VALVE DISORDER [I05.9] DIARRHEA NOS [R19.7] INVALID FOR* Benign neoplasm of colon [D12.6] INVALID FOR* Benign neoplasm of rectum and anal canal [D12.8*INVALID FOR* GERD (gastroesophageal reflux disease) [K21.9] INVALID FOR* Hiatal hernia [K44.9] INVALID FOR* Right rotator cuff tear [M75.101] INVALID FOR* Paranoid schizophrenia (HCC) [F20.0] INVALID FOR* Blepharospasm [G24.5] INVALID FOR* Hypertension [I10] INVALID FOR* Hyperlipidemia [E78.5] INVALID FOR* Intractable migraine without aura [G43.019] INVALID FOR*03/13/2016 Intractable migraine with aura [G43.119] INVALID FOR* 8.2.3 Analgesic overuse headache [F55.2] [339.3*INVALID FOR* Constipation [K59.00] Abdominal pain, other specified site [R10.9] Kidney stones [N20.0] Diabetes mellitus type 2, controlled, without c*INVALID FOR* Osteoarthritis, multiple sites [M15.9] INVALID FOR* Shoulder pain [M25.519] INVALID FOR* Chronic knee pain [M25.569, G89.29] INVALID FOR* S/P TKR (total knee replacement) [Z96.659] INVALID FOR* Calculus of gallbladder with chronic cholecysti*INVALID FOR* Umbilical hernia without obstruction or gangren*INVALID FOR* Family history of ischemic heart disease [Z82.4*INVALID FOR* Opioid abuse [F11.10] INVALID FOR* More... 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] INVALID FOR* Chronic right shoulder pain [M25.511, G89.29] INVALID FOR* Balance disorder [R26.89] INVALID FOR* Use of cane as ambulatory aid [R26.2] INVALID FOR* Impaired vision [H54.7] INVALID FOR* Obesity, Class III, BMI 40-49.9 (morbid obesity*INVALID FOR* Prescriptions ordered this encounter Disp Refills Start End COMPOUNDED PRESCRIPTION 2 Ea* 0 09/13/2017 Class: Print RX Sig: Diabetic booster 2 cases per month. Dx is NEBULIZER ACCESSORIES KIT 3 Kit 3 09/13/2017 Sig: Dispense new tubing, medication chamber and mouth pieces for use with Nebulizer. ICD10 code ALBUTEROL SULFATE HFA 90 MCG/ACTUATI* 1 In* 2 09/13/2017 Sig: INHALE 2 PUFFS BY MOUTH EVERY 6 HOURS NEEDED COMPOUNDED PRESCRIPTION 360 * 3 09/13/2017 Sig: ADULT DIAPERS NEEDS MORE ABSORBANT TYPE, USING 12 DAILY DX N32 N39.3 R39.15 N39.41 N81.11 N81.4 Medications Discontinued During This Encounter COMPOUNDED PRESCRIPTION 2 Ea* 0 02/17/2016 09/13/2017 Class: Print RX Sig: Diabetic booster 2 cases per month. Dx is Disc: Reason for discontinue is not on file. Nebulizer Accessories kit 3 Kit 3 02/08/2017 09/13/2017 Class: Print RX Sig: Dispense new tubing, medication chamber and mouth pieces for use with Nebulizer. ICD10 code Disc: Reason for discontinue is not on file. PROAIR HFA 90 mcg/actuation inhaler 1 In* 2 08/13/2016 09/13/2017 Sig: INHALE 2 PUFFS BY MOUTH EVERY 6 HOURS NEEDED Disc: Reason for discontinue is not on file. metFORMIN (GLUCOPHAGE) 500 mg tablet 180 * 3 11/02/2016 09/13/2017 Route: ORAL Sig: Take 1 tablet by mouth twice daily with meals. Disc: Reason for discontinue is not on file. COMPOUNDED PRESCRIPTION 360 * 3 06/12/2017 09/13/2017 Class: Print RX Sig: ADULT DIAPERS NEEDS MORE ABSORBANT TYPE, USING 12 DAILY DX N32 N39.3 R39.15 N39.41 N81.11 N81.4 Disc: Reason for discontinue is not on file. Encounter Status:Closed by ESTEBAN PHELPS MD on 09/13/17 PROGRESS Observed: 09/13/2017 Status: COMPLETED Source: [place] 9:15 AM [facility] REPOSITORY O ID: [id number] Author: Esteban Phelps Service: (none) Author Type: Physician Type: Progress Notes Filed: 09/13/2017 5:23 PM Note Text: Reason for Visit Patient presents with: Establish Care: transfer care from , had seizure 2 days ago Afsaneh Lowe is a 61 year old female who presents here today for Above Complaints.. Health Maintenance HPV EVERY 5 YEARS DIABETIC FOOT EXAM URINE ALBUMIN CREATININE RATIO LDL DILATED RETINAL EXAM HPI She would like to transfer from Dr Fair, has multiple issues today. Blood pressure is low, needs to titrate the blood sugar medication and depression medication, and she had a seizure. Here in the office she is sleepy, seems a little slow. Her hba1c was 5.1 in April and she has been taking 2 metformin at 500 mg BID. Says she feels like this every day at the time. She has been actively trying to loose weight and has lost around 10 pounds., so not eating much and taking regular dose of medication , she notes she may be having lows. She is sleepy all the time She says she had a seizure 2 days ago, she woke up on the floor., did take all seizure medication did not check sugars. Had a PSG . Obtained report from [facility] on 06/19/2017. Patient shows no signs of ANTONY. She has not seen a sleep doctor. Patient continues to struggle with sleeping too much in the day, she does take a lot of medication that would make her sleepy, like phenytoin, divalporax, and geodon at 80 mgs, along with vicodin 3 times a day. Sees psych at [facility] Denies CP, SOB, palpitations. She has asthma.... she notes, uses her inhaler 4/5 times a day. No problem-specific Assessment AND Plan notes found for this encounter. PAST MEDICAL HISTORY Diagnosis Date - Abdominal pain, other specified site chronic - Arthritis - Asthma - Asthmatic bronchitis - Atypical chest pain - Auditory hallucinations 12/19/2014 [facility] - see scanned documents - Back pain - Benign neoplasm of colon - Blepharospasm - Bronchitis - Carpal tunnel syndrome of left wrist 04/06/2015 mild, nerve conduction study - CHF (congestive heart failure) ([facility]) - Constipation - COPD (chronic obstructive pulmonary disease) ([facility]) - Coronary disease - Degenerative arthritis of knee bilateral - Depression - Diarrhea - Epilepsy ([facility]) - Fibromyalgia - Hemorrhoids - Hypertension - IDDM (insulin dependent diabetes mellitus) ([facility]) - Intoxication with opioids ([facility]) + urine tox - Kidney stones - Kidney stones - Migraine - Mitral valve disorders - Narcotic abuse NO NARCOTICS, see OARRS, multiple providers - Obesity - Osteoporosis - Pneumonia - Renal failure - Restrictive lung disease 02/2015 - Right shoulder injury - Schizo affective schizophrenia ([facility]) Dr. Mcdonnell Psychiatrist - Seizures ([facility]) Pt. uses medical alert dog - Sleep disorder - Stroke ([facility]) - Suicidal ideations 12/19/2014 [facility] - see scanned documents - UTI (urinary tract infection) PAST SURGICAL HISTORY Procedure Laterality Date - COLONOSCOP W/ OR W/O [facility] SPEC 07/03/2010 Colonoscopy - COLONOSCOP W/ OR W/O [facility] SPEC 01/21/2014 Colonoscopy - EGD W/O OR W/BRUSH/WASH 01/21/2014 EGD - EYE SURGERY HX 1999 - F LITHOTRIPSY 2013 kidney stones - LAP CHOLECYSTECT/CHOLANGIOGRAPHY 12/22/14 failed IOC due to small duct - LAPAROSCOPIC TUBAL LIGATION/RING/CLIP 84 - NAIL AVULSION, E/A NAIL Bilateral greast nails - PAST SURGICAL HISTORY OF teeth pulled - TOTAL KNEE REPLACEMENT 2013 bilateral knee replacement Left 04/2012/ right 09/2012 FAMILY HISTORY Problem Relation Age of Onset - Headache Mother migraines - Cancer Mother Bladder - mental illness [OTHER] Mother - Diabetes Father heart - Headache Father migraine - Alzheimer's Disease Father 65 - Heart Father - Hypertension Father - Seizures Father - Stroke Father - Colon Cancer Maternal Grandmother - mental illness [OTHER] Daughter - schizophrenia [OTHER] Daughter and bipolar - Cancer Other Social History Substance Use Topics - Smoking status: Current Every Day Smoker Packs/day: 1.00 Years: 3.00 Types: Cigarettes - Smokeless tobacco: Never Used - Alcohol use No Past medical history, appointments, medications, allergies reviewed. Pertinent Lab/Diagnostic Studies are reviewed and discussed today Current Outpatient Prescriptions: - albuterol HFA (PROAIR HFA) 90 mcg/actuation inhaler - magnesium oxide (MAG-OX) 400 mg tablet - Blood Pressure Cuff - Home Use - pravastatin (PRAVACHOL) 80 mg tablet - OYSTER SHELL CALCIUM-VITAMIN D 500 mg(1,250mg) -200 unit per tablet - EPINEPHrine (EPIPEN, AUVI-Q) 0.3 mg/0.3 mL auto-injector - metFORMIN (GLUCOPHAGE) 500 mg tablet - olopatadine (PATANOL) 0.1 % ophthalmic solution - haloperidol (HALDOL) 5 mg tablet - phenytoin ER (DILANTIN) 100 mg ER capsule - topiramate (TOPAMAX) 50 mg tablet - nitroglycerin sublingual (NITROQUICK) 0.4 mg SL tablet - venlafaxine ER (EFFEXOR XR) 75 mg 24 hr capsule - rizatriptan (MAXALT) 10 mg tablet - aspirin, enteric coated (ADULT LOW DOSE ASPIRIN) 81 mg EC tablet - ziprasidone (GEODON) 80 mg capsule - COMPOUNDED PRESCRIPTION - Nebulizer Accessories kit - COMPOUNDED PRESCRIPTION - COMPOUNDED PRESCRIPTION - COMPOUNDED PRESCRIPTION - blood sugar diagnostic (BLOOD GLUCOSE TEST) test strip - lancets (ONE TOUCH DELICA) 33 gauge misc - nut.tx.gluc intol,lf,soy-fiber (BOOST GLUCOSE CONTROL) 0.06-1.1 gram-kcal/mL liqd - oxybutynin ER (DITROPAN XL) 10 mg 24 hr tablet - albuterol (PROVENTIL) 2.5 mg /3 mL (0.083 %) nebulizer solution - COMPOUNDED PRESCRIPTION - COMPOUNDED PRESCRIPTION - COMPOUNDED PRESCRIPTION - ALCOHOL PREP PADS padm - COMPOUNDED PRESCRIPTION - HYDROcodone-Acetaminophen (NORCO) 7.5-325 mg per tablet - Compression Knee Highs - mupirocin (BACTROBAN) 2 % ointment - COMPOUNDED PRESCRIPTION - COMPOUNDED PRESCRIPTION - COMPOUNDED PRESCRIPTION - Blood-Glucose Meter monitoring kit - silver sulfADIAZINE (SILVADENE,THERMAZENE) 1 % cream - clonazePAM (KLONOPIN) 1 mg tablet Review of Systems CONSTITUTIONAL: No fevers, chills night sweats, unintended weight loss CARDIOVASCULAR: No chest pain, dyspnea, palpitations, orthopnea, PND, ankle edema. PULM: No dyspnea, unexplained cough. GI: No dysphagia/odynophagia, problematic reflux, constipation, diarrhea, changes in stool habits, hematochezia, melena. : No new urinary complaints, including dysuria, gross hematuria or pyuria. NEURO: No new balance problems, peripheral weakness/paresthesias or numbness of concern. Physical Exam BP 108/62 (BP Site: Left Arm, BP Position: Sitting, BP Cuff Size: Large Adult) Pulse 85 Resp 14 Ht 157.5 cm (5' 2) Wt 99.3 kg (219 lb) SpO2 97% BMI 40.06 kg/m? General appearance: appears to be drowsy although she responds when we talk to her, in no acute distress, well nourished. Skin: Skin color, texture, turgor normal, no suspicious rashes or lesions Head: Normocephalic, no masses, lesions, tenderness or abnormalities Eyes: Anicteric sclera. Pupils are equally round and reactive to light. Extraocular movements are intact. Lungs: Lungs clear to auscultation. No wheezing, rhonchi, rales Heart: RRR without murmur, gallop, or rubs. Extremities: No deformities, edema, skin discoloration, clubbing or cyanosis. Good capillary refill. ASSESSMENT/PLAN: 1. Controlled type 2 diabetes mellitus without complication, unspecified whether jail insulin use (HCC) - ICD9: 250.00, ICD10: E11.9 (primary diagnosis) Stop metformin, as she may be having a lot of lows,, need CGM We had to give her a drink and cereal bar for sugars in the office today - HGB A1C - DM CGM-DIAGNOSTIC - COMP METABOLIC PANEL - TSH BLD 2. Restrictive lung disease - ICD9: 518.89, ICD10: J98.4 - NEBULIZER ACCESSORIES KIT 3. Generalized convulsive epilepsy (HCC) - ICD9: 345.10, ICD10: G40.309 She seems to be taking her medication like she should Wonder if she has hypoglycemia and that is the reason for her seizures? 4. Obesity, Class III, BMI 40-49.9 (morbid obesity) (HCC) - ICD9: 278.01, ICD10: E66.01 She has been actively trying to reduce weight, stop metformin 5. Hypoglycemia - ICD9: 251.2, ICD10: E16.2 - DM CGM-DIAGNOSTIC 6. Vitamin D deficiency - ICD9: 268.9, ICD10: E55.9 - VITAMIN D 25 HYDROXY 7. Paranoid schizophrenia (HCC) - ICD9: 295.30, ICD10: F20.0 She is on geodon. Sees psych at [facility] Spent more than 40 mins with the patient ESTEBAN PHELPS MD CBC Collected: 09/12/2017 Status: F Source: [place] 2:48 PM [facility] REPOSITORY TYPE CODE TESTS RESULT OUT OF RANGE REFERENCE UNITS LAB CBC(LOINC) CBC Result Comment: CBC-COMPLETE BLOOD COUNT LAB WBC(LOINC) 4.5 - 10.8 x 10EE3/UL WBC High 13.2 LAB RBC(LOINC) 4.10 - x 10EE6/UL 5.30 RBC Low 4.05 LAB HEMOGLOBIN(LOINC 12.0 - g/dl ) 16.0 HEMOGLOBIN 13.4 LAB HEMATOCRIT(LOINC 34.0 - % ) 46.0 HEMATOCRIT 39.7 LAB MCV(LOINC) 80 - 99 fl MCV 98 LAB MCH(LOINC) 27 - 33 pg MCH 33 LAB MCHC(LOINC) 32 - 36 X10 3 MCHC 34 LAB RDW/CV(LOINC) 12.0 - % 15.6 RDW/CV 12.9 LAB PLATELET(LOINC) 150 - 450 x10EE3/UL PLATELET 305 LAB MPV(LOINC) 6.6 - 10.5 fl MPV 9.3 Result Comment: AUTOMATED DIFFERENTIAL LAB NEUT %(LOINC) 46.0 - 76.0 % NEUT % 65.1 LAB LYMPH %(LOINC) 20.0 - 45.0 % LYMPH % 20.3 LAB MONOS %(LOINC) 0.0 - 10.0 % MONOS % High 11.7 LAB EO %(LOINC) 0.0 - 7.0 % EO % 2.1 LAB BASO %(LOINC) 0.0 - 2.0 % BASO % 0.8 LAB Lymph #(LOINC) 0.80 - 2.80 x10EE3/U L Lymph # 2.70 LAB Neut #(LOINC) 1.50 - 7.10 x10EE3/U L Neut # High 8.60 LAB Gates #(LOINC) 0.20 - 1.00 x10EE3/U L Gates # High 1.50 LAB EO #(LOINC) 0.00 - 0.50 x10EE3/U L EO # 0.30 LAB Baso #(LOINC) 0.00 - 0.10 x10EE3/U L Baso # 0.10 LAB MANUAL DIFF(LOINC) MANUAL DIFF N/A LAB MORPHOLOGY(LOINC ) MORPHOLOGY N/A Result Comment: {CD] Performed By: #### [id number] #### [place] [id number] PROTHROMBIN TIME AND Collected: 09/12/2017 Status: F [facility] REPOSITORY TYPE CODE TESTS RESULT OUT OF REFERENCE UNITS RANGE LAB PROTHROMBIN TIME AND INR(LOINC) PROTHROMBIN TIME AND INR Result Comment: PROTHROMBIN TIME AND INR LAB PT-COUMADIN(LOINC) sec PT-COUMADIN 12.2 LAB INR(LOINC) 0.8 - 1.2 INR 1.1 Result Comment: THE HEMOSIL THROMBOPLASTIN REAGENT USED IN THE PROTHROMBIN TIME TEST INTERACTS WITH THE DRUG CUBICIN (DAPTOMYCIN) AND WILL RESULT IN FALSELY ELEVATED PT / INR RESULTS INR INTERPRETATION INR INDICATION PREVENTION AND TREATMENT OF THROMBOEMBOLISM ASSOCIATED WITH: 2.0 - 3.0 ATRIAL FIBRILLATION, BIOPROSTHETIC HEART VALVES, PULMONARY EMBOLISM, VENOUS THROMBOSIS, SYSTEMIC EMBOLISM POST MYOCARDIAL INFARCTION 2.5 - 3.5 MECHANICAL HEART VALVES Performed By: #### [id number] #### [place] [address] APTT Collected: 09/12/2017 Status: F Source: [place] 2:48 PM [facility] REPOSITORY TYPE CODE TESTS RESULT OUT OF RANGE REFERENCE UNITS LAB PTT(LOINC) 21.6 - 35.4 sec PTT 24.6 Performed By: #### [id number] #### [facility],[address] [place], [place] [id number] CMP WITH EGFR Collected: 09/12/2017 Status: F Source: [place] 2:48 PM [facility] REPOSITORY TYPE CODE TESTS RESULT OUT OF RANGE REFERENCE UNITS LAB CMP with eGFR(LOINC) CMP with eGFR Result Comment: COMPREHENSIVE METABOLIC PANEL LAB SODIUM(LOINC) 136 - 145 mmol/l SODIUM 141 LAB POTASSIUM(LOINC) 3.5 - 5.1 mmol/L POTASSIUM 3.8 LAB CHLORIDE(LOINC) 98 - 107 mmol/L CHLORIDE 107 LAB CO2(LOINC) 21.0 - mmol/L 31.0 CO2 27.2 LAB GLUCOSE(LOINC) 74 - 106 mg/dl GLUCOSE 83 LAB BUN(LOINC) 6 - 20 mg/dl BUN High 21 LAB CREATININE(LOINC) 0.6 - 1.2 mg/dl CREATININE 0.6 LAB AST/SGOT(LOINC) 13 - 39 U/L AST/SGOT Low 9 LAB ALK PHOS(LOINC) 38 - 126 U/L ALK PHOS 79 LAB CALCIUM(LOINC) 8.6 - mg/dl 10.2 CALCIUM 9.0 LAB TOTAL 6.4 - 8.3 g/dl PROTEIN(LOINC) TOTAL Low PROTEIN 6.0 LAB ALBUMIN(LOINC) 3.4 - 4.8 g/dL ALBUMIN 3.6 LAB GLOBULIN(LOINC) 1.5 - 3.8 G/DL GLOBULIN 2.4 LAB A/G RATIO(LOINC) 0.9 - 1.6 A/G RATIO 1.5 LAB TOTAL BILI(LOINC) 0.0 - 1.5 mg/dl TOTAL BILI 0.2 LAB B/C RATIO(LOINC) 0 - 30 ratio B/C High RATIO 35 LAB ALT/SGPT(LOINC) 8 - 35 U/L ALT/SGPT Low 7 LAB ANION GAP(LOINC) 10 - 20 mmol/L ANION GAP 11 LAB AGE(LOINC) years AGE 61 LAB eGFR(LOINC) 60 - 999 ML/MINUTE eGFR >60 LAB eGFR(AA)(LOINC) 60 - 999 ML/MINUTE eGFR(AA) >60 Result Comment: ACCORDING TO THE NATIONAL KIDNEY DISEASE EDUCATION PROGRAM(NKDE), A NORMAL eGFR IS A VALUE GREATER THAN OR EQUAL TO 60 ML/MIN/1.73 SQ METERS. CHRONIC KIDNEY DISEASE: <60mL/MIN/1.73 SQ METERS KIDNEY FAILURE: <15mL/MIN/1.73 SQ METERS THIS TEST SHOULD ONLY BE USED FOR PATIENTS 18 YEARS OF AGE AND OLDER. Performed By: #### [id number] #### [address] [address] TROPONIN Collected: 09/12/2017 Status: F Source: [place] 2:48 PM [facility] REPOSITORY TYPE CODE TESTS RESULT OUT OF REFERENCE UNITS RANGE LAB TROPONIN 0.00 - 0.05 ng/ml I(LOINC) TROPONIN I <0.01 Result Comment: Elevated troponin (above the 99th percentile) usually indicates myocardial ischemia. Results must be interpreted within the clinical setting. 1.Non-ischemic pathology can also cause elevated troponin levels (e.g., acute pulmonary embolism, myocarditis, pericarditis, heart failure, intracranial injury, rhabdomyolisis, sepsis, shock and renal insufficiency). 2.Approximately 1% of healthy adults have elevated troponin levels. 3.Analytical false positive results rarely occur(due to multiple interferences such as heterophile antibodies). Performed By: #### [id number] #### [address] [address] VALPROIC ACID Collected: 09/12/2017 Status: F Source: [place] (DEPAKENE) 2:48 PM [facility] REPOSITORY TYPE CODE TESTS RESULT OUT OF REFERENCE UNITS RANGE LAB VALPROIC 50 - 120 ug/ml ACID(LOINC) Low VALPROIC ACID 35 Performed By: #### [id number] #### [address] [address] KNEE COMPLETE LT MIN Observed: 09/12/2017 Status: F Source: [place] 4 VIEWS 2:29 PM [place] [address] Patient: AFSANEH LOWE Phone#: : [phone] Age: 61 Gender: F Pt. Type: ER Account: [id number] Location: [facility] Ordering: DARWIN ANTUNEZ Exam Date: 09/12/2017/14:15 Family Phys: DR. WALLACE FAIR D.O.Charge Code: [id number] Physician: [place] Order #: [id number] DLP Dose#: PROCEDURE: X-RAY KNEE LT COMPLETE 4 VIEWS COMPARISON: [facility], XR, KNEE COMPLETE LT MIN 4 VIEWS, 06/21/2016, 21:01. INDICATIONS: Pain FINDINGS: BONES: Total left knee prosthesis in place in satisfactory alignment and position. [place] bone intact. No acute fracture or dislocation. SOFT TISSUES: Negative. No visible soft tissue swelling. EFFUSION: None visible. OTHER: No change from June 21, 2016. CONCLUSION: 1. Negative plain films of the left knee Dictated by: Andrew Herrera MD on 09/12/2017 at 14:59 Approved by: Andrew Herrera MD on 09/12/2017 at 14:59 HAND RT MIN 3 VIEWS Observed: 09/12/2017 Status: F Source: [facility] 2:29 PM [place] [address] Patient: AFSANEH LOWE Phone#: : [phone] Age: 61 Gender: F Pt. Type: ER Account: [id number] Location: 2 Ordering: DARWIN ANTUNEZ Exam Date: 09/12/2017/14:17 Family Phys: DR. WALLACE FAIR D.O.Charge Code: [id number] Physician: Lajas Order #: [id number] DLP Dose#: PROCEDURE: X-RAY HAND RT COMPLETE MIN 3 VIEWS COMPARISON: None. INDICATIONS: Pain FINDINGS: BONES: No acute fracture or dislocation. Mild diffuse osteoporosis is present. Moderate degenerative changes overlie the PIP and DIP joints of the fingers and the IP joint of the thumb. Mild degenerative changes overlie the radial carpal joint in the lateral aspect of the wrist. SOFT TISSUES: Negative. No visible soft tissue swelling. EFFUSION: None visible. OTHER: Negative. CONCLUSION: 1. No acute fracture dislocation. 2. Mild osteoporosis. Mild to moderate diffuse degenerative disease. Dictated by: Andrew Herrera MD on 09/12/2017 at 15:03 Approved by: Andrew Herrera MD on 09/12/2017 at 15:03 CNCO Observed: 08/23/2017 Status: COMPLETED Source: [place] 12:00 AM [facility] [place] REPOSITORY Letter Text [address] [place] [id number] Afsaneh Lowe [address] #: [id number] 08/23/2017 Dear Ms. Lowe, I have received the results of your recent tests. Overall labs normal. WBC level slightly elevated. This can be caused by many things. Recommend monitoring at this time. ? Angie Stephens APRN.CNP We can discuss this at your next visit. Please do not hesitate to contact me with any questions. Sincerely, Angie Stephens APRN.CNP electronically signed to expedite mailing PROGRESS Observed: 08/22/2017 Status: COMPLETED Source: [place] 5:19 PM [facility] REPOSITORY HNO ID: [id number] Author: Jay Jay Sweet (Rn) Service: (none) Author Type: Registered Nurse Type: Progress Notes Filed: 08/22/2017 5:30 PM Note Text: PRIMARY CARE COORDINATION CHART REVIEW Patient identified for Care Coordination from: [facility] Last PCP office visit: 08/22/2017 Next OV: 09/13/17 CHRONIC DX: CHF, CVD, DM, Htn CARE GAPS: [facility] 05/22/17 LDL 70 ( No Care Gap) Due for Urine Albumin UTILIZATION WITHIN THE LAST 12 MONTHS: None PRIMARY CARE COORDINATION OUTREACH PLAN: 08/22/[address] INTERPRETER OV completed for Hypotension- Plan Monitor BP, Increase fluids, Change positions slowly No Care Coordination needs at this time Micki Goyal RN CBC AND DIFFERENTIAL Collected: 08/22/2017 Status: F Source: [place] 3:26 PM [facility] [place] REPOSITORY TYPE CODE TESTS RESULT OUT OF REFERENCE UNITS RANGE LAB WBC 3.70-11.00 k/uL WBC High 11.37 LAB RBC 3.90-5.20 m/uL RBC 3.95 LAB HGB 11.5-15.5 g/dL Hemoglobin 13.1 LAB HCT 36.0-46.0 % Hematocrit 40.1 LAB MCV 80.0-100.0 fL MCV High 101.5 LAB MCH 26.0-34.0 pG MCH 33.2 LAB MCHC 30.5-36.0 g/dL MCHC 32.7 LAB RDWCV 11.5-15.0 % RDW-CV 12.7 LAB PLTCT 150-400 k/uL Platelet Count 303 LAB MPV 9.0-12.7 fL MPV 11.9 LAB ANEUT % Neut% 55.5 LAB AANEUT 1.45-7.50 k/uL Abs Neut 6.32 LAB ALYMP % Lymph% 30.3 LAB AALYMP 1.00-4.00 k/uL Abs Lymph 3.44 LAB AMONO % Gates% 10.3 LAB AAMONO <0.87 k/uL Abs [place] High 1.17 LAB AEOS % Eosin% 2.9 LAB AAEOS <0.46 k/uL Abs Eosin 0.33 LAB ABASO % Baso% 1.0 LAB AABASO <0.11 k/uL Abs Baso High 0.11 LAB AUNRBC 0 /100 WBC NRBCs 0.0 LAB ABNRBC <0.01 k/uL Absolute nRBC <0.01 LAB DTYP DTYPE Auto Diff Performed By: #### CBCDIF, CMP, TSH #### [facility] [address] [place] [address] COMP METABOLIC PANEL Collected: 08/22/2017 Status: F Source: [place] 3:26 PM [facility] [place] REPOSITORY TYPE CODE TESTS RESULT OUT OF REFERENCE UNITS RANGE LAB TP 6.3-8.0 g/dL Protein, Total 6.5 LAB ALB 3.9-4.9 g/dL Low Albumin 3.8 LAB CA 8.5-10.2 mg/dL Calcium, Total 9.2 LAB TBIL 0.2-1.3 mg/dL Low Bilirubin, Total <0.2 LAB ALKP 32-117 U/L Alkaline Phosphatase 77 LAB AST 13-35 U/L AST 15 LAB GLU 74-99 mg/dL Glucose 87 Result Comment: The [place] Diabetes Association (ADA) provides guidance for cutoff values for fasting glucose and random glucose. The ADA defines fasting as no caloric intake for at least 8 hours. Fas ting plasma glucose results between 100 to 125 mg/dL indicate increased risk for diabetes (prediabetes). Fasting plasma glucose results greater than or equal to 126 mg/dL meet the criteria for diagnosis of diabetes. In the absence of unequivocal hyperglycemia, results should be confirmed by repeat testing. In a patient with classic symptoms of hyperglycemia or hyperglycemic crisis, random plasma glucose results greater than or equal to 200 mg/dL meet the criteria for diagnosis of diabetes. Reference: Standards of Medical Care in Diabetes 2016, [place] Diabetes Association. Diabetes Care. 2016.39(Suppl 1). LAB BUN 7-21 mg/dL BUN 13 LAB CRET 0.58-0.96 mg/dL Creatinine 0.70 LAB NA 136-144 mmol/L Sodium 139 LAB K 3.7-5.1 mmol/L Potassium 4.0 LAB CL 97-105 mmol/L Chloride 100 LAB CO2 22-30 mmol/L CO2 27 LAB AGAP 9-18 mmol/L Anion Gap 12 LAB ALT 7-38 U/L ALT 9 LAB GFRAA eGFR- Amer. >60 LAB GFRNAA . eGFR-All Other Races >60 Result Comment: eGFR (Estimated GFR) Units of measure: mL/min/1.73 meters squared eGFR is derived from the reexpressed MDRD Study equation using the following parameters: serum creatinine, age, gender and race. The creatinine assay has been calibrated to be traceable to IDMS. An eGFR <60 mL/min/1.73m2 for >3 months is consistent with chronic kidney disease. Refer to KDOQI guidelines for clinical interpretation. In patients with unstable renal function, e.g. those with acute kidney injury, the eGFR may not accurately reflect actual GFR. Performed By: #### CBCDIF, CMP, TSH #### [facility] [employer] [address] [place] [id number] TSH Collected: 08/22/2017 Status: F Source: [place] 3:26 PM [facility] REPOSITORY TYPE CODE TESTS RESULT OUT OF RANGE REFERENCE UNITS LAB TSH 0.400-5.500 uU/mL TSH 1.810 Performed By: #### CBCDIF, CMP, TSH #### [facility] [employer] [address] [place] [id number] PROGRESS Observed: 08/22/2017 Status: COMPLETED Source: [place] 3:05 PM [facility] REPOSITORY HNO ID: [id number] Author: Angie Stephens Service: (none) Author Type: Nurse Practitioner Type: Progress Notes Filed: 08/22/2017 4:16 PM Note Text: HPI/CC: Afsaneh Lowe is a 61 year old female who presents for low blood pressure. First low BP recorded at pain doctor prior to injection on 08/09/2017. Patient has had a friend check her BP over the last few days. BP ranges SBP 83-116/61-83. Reports feeling dizziness, fatigued and increased headaches. Remy syncope, CP, palpitations. Previous W/U negative ECG, stress test and echo. Drinks approximately 2 Gatorade bottles of water a day. + smoker. Takes [place] TID. Weight has decreased by 9 lbs since last OV. ROS as above, otherwise non-contributory. Reviewed PMHx, PSHx, social Hx, medications and allergies. PHYSICAL EXAMINATION: BP 98/70 Pulse 84 Resp 16 Wt 99.3 kg (219 lb) BMI 40.06 kg/m2 Orthostatic Vitals BP Pulse Position Comment Time Date 112 88 Standing --- 03:31 PM 08/22/2017 120/72 84 Sitting --- 03:31 PM 08/22/2017 118/82 80 Supine --- 03:31 PM 08/22/2017 General appearance: Well appearing, alert, in no acute distress, well-hydrated, well nourished. Skin: Skin color, texture, turgor normal, no suspicious rashes or lesions Lungs: Lungs clear to auscultation. No wheezing, rhonchi, rales Heart: RRR without murmur, gallop, or rubs. No ectopy ASSESSMENT/PLAN: 1. Hypotension, unspecified hypotension type - ICD9: 458.9, ICD10: I95.9 (primary diagnosis) - Monitor BP - Increase fluids - Change positions slowly - f/u with cardiology if continues - CBC + DIFF - COMP METABOLIC PANEL 2. 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 (HCC) - ICD9: 250.00, ICD10: E11.9 - TSH BLD Angie Stephens APRN.MARLEY BULL Observed: 08/22/2017 Status: COMPLETED Source: [place] 2:20 PM [facility] [place] REPOSITORY Office Visit (FAMPWS) AFSANEH LOWE ([id number]) 1955 F BLD Date Time Provider Department 08/22/17 2:20 PM ANGIE STEPHENS) SARAHI During your visit today, we recorded the following information about you: Pulse Respiration Blood pressure Weight 84/minute 16/minute 98/70 99.3 kg Angie Stephens APRN.MARLEY 08/22/2017 4:16 PM Signed HPI/CC: Afsaneh Lowe is a 61 year old female who presents for low blood pressure. First low BP recorded at pain doctor prior to injection on 08/09/2017. Patient has had a friend check her BP over the last few days. BP ranges SBP 83-116/61-83. Reports feeling dizziness, fatigued and increased headaches. Remy syncope, CP, palpitations. Previous W/U negative ECG, stress test and echo. Drinks approximately 2 Gatorade bottles of water a day. + smoker. Takes [place] TID. Weight has decreased by 9 lbs since last OV. ROS as above, otherwise non-contributory. Reviewed PMHx, PSHx, social Hx, medications and allergies. PHYSICAL EXAMINATION: BP 98/70 Pulse 84 Resp 16 Wt 99.3 kg (219 lb) BMI 40.06 kg/m2 Orthostatic Vitals BP Pulse Position Comment Time Date 88 Standing --- 03:31 PM 08/22/2017 120/72 84 Sitting --- 03:31 PM 08/22/2017 118/82 80 Supine --- 03:31 PM 08/22/2017 General appearance: Well appearing, alert, in no acute distress, well-hydrated, well nourished. Skin: Skin color, texture, turgor normal, no suspicious rashes or lesions Lungs: Lungs clear to auscultation. No wheezing, rhonchi, rales Heart: RRR without murmur, gallop, or rubs. No ectopy ASSESSMENT/PLAN: 1. Hypotension, unspecified hypotension type - ICD9: 458.9, ICD10: I95.9 (primary diagnosis) - Monitor BP - Increase fluids - Change positions slowly - f/u with cardiology if continues - CBC + DIFF - COMP METABOLIC PANEL 2. Controlled type 2 diabetes mellitus without complication, unspecified whether jail insulin use (HCC) - ICD9: 250.00, ICD10: E11.9 - TSH BLD PHU Gomez APRN.CNP 08/22/2017 3:11 PM Signed Monitor BP Increase fluids Change positions slowly Referring Provider: SELF [[id number]] Allergies As of Date: 08/22/2017 Noted Allergy Reaction BEE STING 10/10/2012 10 - Anaphylaxis BETADINE (POVIDONE-IODINE) 12/17/2013 16 - Unknown IMITREX (SUMATRIPTAN SUCCINATE) 12/17/2005 11 - Vomiting TAPE (ADHESIVE TAPE (ROSINS)) 09/25/2012 14 - Other: See Comments Comments: Patients states paper tape makes her blister Date Reviewed: 08/22/2017 Reviewed by: Young Elizalde LPN - Fully Assessed Reason for Visit: low blood pressure [Other] Primary Visit Diagnosis:Hypotension, unspecified hypotension type [I95.9] Other Visit Diagnosis:Controlled type 2 diabetes mellitus without complication, unspecified whether jail insulin use (HCC) [E11.9] Order(s):TSH BLD [SQTSH] Order #: [id number] FUTURE CBC + DIFF [SQCBCDIF] Order #: [id number] FUTURE COMP METABOLIC PANEL [SQCMP] Order #: [id number] FUTURE Prescriptions as of 08/22/2017 Sig: PRAVASTATIN 80 MG TABLET TAKE 1 TABLET BY MOUTH AT BED* COMPOUNDED PRESCRIPTION First Alert Dx: G40.309, R26.* COMPOUNDED PRESCRIPTION Washable [place] Bed pads Change* COMPOUNDED PRESCRIPTION ADULT DIAPERS NEEDS MORE ABSO* OYSTER SHELL CALCIUM-VITAMIN * TAKE 1 TABLET BY MOUTH DAILY BLOOD SUGAR DIAGNOSTIC STRIPS Test blood sugar(s) 4 times d* LANCETS 33 GAUGE Test blood sugars four times * NUTRITION TX GLU INTOL,LAC-FR* Take 1 Each by mouth once qiana* NEBULIZER ACCESSORIES KIT Dispense new tubing, medicati* OXYBUTYNIN CHLORIDE ER 10 MG * Take 1 tablet by mouth once d* ALBUTEROL SULFATE 2.5 MG/3 ML* Use 3 mL via nebulizer every * EPINEPHRINE 0.3 MG/0.3 ML INJ* as needed for allergic anaphy* METFORMIN 500 MG TABLET Take 1 tablet by mouth twice * COMPOUNDED PRESCRIPTION LIFT MECHANISM FOR LIFT CHAIR* COMPOUNDED PRESCRIPTION RAISED TOILET SEAT WITH ARMS * OLOPATADINE 0.1 % EYE DROPS USE 1 DROP IN BOTH EYES TWICE* COMPOUNDED PRESCRIPTION Dispense wheeled walker with * HALOPERIDOL 5 MG TABLET 8 tablets three times daily. PHENYTOIN SODIUM EXTENDED 100* Takes 2 capsules 3 times per * MAGNESIUM OXIDE 400 MG TABLET Take 1 tablet by mouth every * PROAIR HFA 90 MCG/ACTUATION A* INHALE 2 PUFFS BY MOUTH EVERY* TOPIRAMATE 50 MG TABLET Take 1 tablet by mouth twice * NITROGLYCERIN 0.4 MG SUBLINGU* Dissolve 1 tablet under the t* VENLAFAXINE ER 75 MG CAPSULE,* Take 2 capsules by mouth once* ALCOHOL PREP PADS USE TWICE DAILY COMPOUNDED PRESCRIPTION High Back Shower Chair that h* RIZATRIPTAN 10 MG TABLET Take 10 mg by mouth as needed* HYDROCODONE 7.5 MG-ACETAMINOP* Take by mouth three times da* COMPOUNDED PRESCRIPTION KNEE HIGH COMPRESSION STOCKIN* COMPOUNDED PRESCRIPTION Diabetic booster 2 cases per* MUPIROCIN 2 % TOPICAL OINTMENT Apply 1 application to affect* COMPOUNDED PRESCRIPTION 1 Device as needed. NEBULIZER* COMPOUNDED PRESCRIPTION Registered Nurse services in * COMPOUNDED PRESCRIPTION Nurses Aid in home care, 33 h* BLOOD-GLUCOSE METER KIT Glucose Meter of Choice - Kit* ASPIRIN 81 MG TABLET,DELAYED * Take 1 tablet by mouth once d* SILVER SULFADIAZINE 1 % TOPIC* Apply 1 application to affect* CLONAZEPAM 1 MG TABLET Take 1 tablet by mouth three * * ZIPRASIDONE 80 MG CAPSULE Take 1 capsule by mouth twice* Medication notes this encounter LISINOPRIL 5 MG TABLET >> Angie Stephens APRN.BUSINESS DIVISION CHAIR 08/22/2017 2:50 PM hypotension Problem List As Of Date 08/22/2017 Noted Resolved MITRAL VALVE DISORDER [I05.9] DIARRHEA NOS [R19.7] INVALID FOR* Benign neoplasm of colon [D12.6] INVALID FOR* Benign neoplasm of rectum and anal canal [D12.8*INVALID FOR* GERD (gastroesophageal reflux disease) [K21.9] INVALID FOR* Hiatal hernia [K44.9] INVALID FOR* Right rotator cuff tear [M75.101] INVALID FOR* Paranoid schizophrenia (HCC) [F20.0] INVALID FOR* Blepharospasm [G24.5] INVALID FOR* Hypertension [I10] INVALID FOR* Hyperlipidemia [E78.5] INVALID FOR* Intractable migraine without aura [G43.019] INVALID FOR*03/13/2016 Intractable migraine with aura [G43.119] INVALID FOR* 8.2.3 Analgesic overuse headache [F55.2] [339.3*INVALID FOR* Constipation [K59.00] Abdominal pain, other specified site [R10.9] Kidney stones [N20.0] Diabetes mellitus type 2, controlled, without c*INVALID FOR* Osteoarthritis, multiple sites [M15.9] INVALID FOR* Shoulder pain [M25.519] INVALID FOR* Chronic knee pain [M25.569, G89.29] INVALID FOR* S/P TKR (total knee replacement) [Z96.659] INVALID FOR* Calculus of gallbladder with chronic cholecysti*INVALID FOR* Umbilical hernia without obstruction or gangren*INVALID FOR* Family history of ischemic heart disease [Z82.4*INVALID FOR* Opioid abuse [F11.10] INVALID FOR* More... 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] INVALID FOR* Chronic right shoulder pain [M25.511, G89.29] INVALID FOR* Balance disorder [R26.89] INVALID FOR* Use of cane as ambulatory aid [R26.2] INVALID FOR* Impaired vision [H54.7] INVALID FOR* Other instructions from your clinician: Monitor BP Increase fluids Change positions slowly Medications Discontinued During This Encounter lisinopril (ZESTRIL, PRINIVIL) 5 mg * 28 t* 3 07/03/2017 08/22/2017 Cmt: Prescription Sig: TAKE 1 TABLET BY MOUTH DAILY Disc: Clinical Decision Classic SmartForms filed during this visit: Extended Vitals Encounter Status:Closed by ANGIE STEPHENS CNP on 08/22/17 RAYMUNDO Observed: 08/22/2017 Status: COMPLETED Source: [place] 12:00 AM [facility] [place] REPOSITORY Patient Outreach (FAMPWS) CHRISSYAFSANEH ([id number]) 1955 F BLD Date Time Provider Department 08/22/17 JAY JAY SWEET (RN) FAMPWS During your visit today, we recorded the following information about you: Micki Goyal RN 08/22/2017 5:30 PM Signed PRIMARY CARE COORDINATION CHART REVIEW Patient identified for Care Coordination from: [facility] Last PCP office visit: 08/22/2017 Next OV: 09/13/17 CHRONIC DX: CHF, CVD, DM, Htn CARE GAPS: [facility] 05/22/17 LDL 70 ( No Care Gap) Due for Urine Albumin UTILIZATION WITHIN THE LAST 12 MONTHS: None PRIMARY CARE COORDINATION OUTREACH PLAN: 08/22/[address] INTERPRETER OV completed for Hypotension- Plan Monitor BP, Increase fluids, Change positions slowly No Care Coordination needs at this time Micki Goyal RN Allergies As of Date: 08/22/2017 Noted Allergy Reaction BEE STING 10/10/2012 10 - Anaphylaxis BETADINE (POVIDONE-IODINE) 12/17/2013 16 - Unknown IMITREX (SUMATRIPTAN SUCCINATE) 12/17/2005 11 - Vomiting TAPE (ADHESIVE TAPE (ROSINS)) 09/25/2012 14 - Other: See Comments Comments: Patients states paper tape makes her blister Date Reviewed: 08/22/2017 Reviewed by: Young Elizalde LPN - Fully 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 [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] Cmt: [facility] Prescriptions as of 08/22/2017 Sig: PRAVASTATIN 80 MG TABLET TAKE 1 TABLET BY MOUTH AT BED* COMPOUNDED PRESCRIPTION First Alert Dx: G40.309, R26.* COMPOUNDED PRESCRIPTION Washable [place] Bed pads Change* COMPOUNDED PRESCRIPTION ADULT DIAPERS NEEDS MORE ABSO* OYSTER SHELL CALCIUM-VITAMIN * TAKE 1 TABLET BY MOUTH DAILY BLOOD SUGAR DIAGNOSTIC STRIPS Test blood sugar(s) 4 times d* LANCETS 33 GAUGE Test blood sugars four times * NUTRITION TX GLU INTOL,LAC-FR* Take 1 Each by mouth once qiana* NEBULIZER ACCESSORIES KIT Dispense new tubing, medicati* OXYBUTYNIN CHLORIDE ER 10 MG * Take 1 tablet by mouth once d* ALBUTEROL SULFATE 2.5 MG/3 ML* Use 3 mL via nebulizer every * EPINEPHRINE 0.3 MG/0.3 ML INJ* as needed for allergic anaphy* METFORMIN 500 MG TABLET Take 1 tablet by mouth twice * COMPOUNDED PRESCRIPTION LIFT MECHANISM FOR LIFT CHAIR* COMPOUNDED PRESCRIPTION RAISED TOILET SEAT WITH ARMS * OLOPATADINE 0.1 % EYE DROPS USE 1 DROP IN BOTH EYES TWICE* COMPOUNDED PRESCRIPTION Dispense wheeled walker with * HALOPERIDOL 5 MG TABLET 8 tablets three times daily. PHENYTOIN SODIUM EXTENDED 100* Takes 2 capsules 3 times per * MAGNESIUM OXIDE 400 MG TABLET Take 1 tablet by mouth every * PROAIR HFA 90 MCG/ACTUATION A* INHALE 2 PUFFS BY MOUTH EVERY* TOPIRAMATE 50 MG TABLET Take 1 tablet by mouth twice * NITROGLYCERIN 0.4 MG SUBLINGU* Dissolve 1 tablet under the t* VENLAFAXINE ER 75 MG CAPSULE,* Take 2 capsules by mouth once* ALCOHOL PREP PADS USE TWICE DAILY COMPOUNDED PRESCRIPTION High Back Shower Chair that h* RIZATRIPTAN 10 MG TABLET Take 10 mg by mouth as needed* HYDROCODONE 7.5 MG-ACETAMINOP* Take by mouth three times da* COMPOUNDED PRESCRIPTION KNEE HIGH COMPRESSION STOCKIN* COMPOUNDED PRESCRIPTION Diabetic booster 2 cases per* MUPIROCIN 2 % TOPICAL OINTMENT Apply 1 application to affect* COMPOUNDED PRESCRIPTION 1 Device as needed. NEBULIZER* COMPOUNDED PRESCRIPTION Registered Nurse services in * COMPOUNDED PRESCRIPTION Nurses Aid in home care, 33 h* BLOOD-GLUCOSE METER KIT Glucose Meter of Choice - Kit* ASPIRIN 81 MG TABLET,DELAYED * Take 1 tablet by mouth once d* SILVER SULFADIAZINE 1 % TOPIC* Apply 1 application to affect* CLONAZEPAM 1 MG TABLET Take 1 tablet by mouth three * * ZIPRASIDONE 80 MG CAPSULE Take 1 capsule by mouth twice* Problem List As Of Date 08/22/2017 Noted Resolved MITRAL VALVE DISORDER [I05.9] DIARRHEA NOS [R19.7] INVALID FOR* Benign neoplasm of colon [D12.6] INVALID FOR* Benign neoplasm of rectum and anal canal [D12.8*INVALID FOR* GERD (gastroesophageal reflux disease) [K21.9] INVALID FOR* Hiatal hernia [K44.9] INVALID FOR* Right rotator cuff tear [M75.101] INVALID FOR* Paranoid schizophrenia (HCC) [F20.0] INVALID FOR* Blepharospasm [G24.5] INVALID FOR* Hypertension [I10] INVALID FOR* Hyperlipidemia [E78.5] INVALID FOR* Intractable migraine without aura [G43.019] INVALID FOR*03/13/2016 Intractable migraine with aura [G43.119] INVALID FOR* 8.2.3 Analgesic overuse headache [F55.2] [339.3*INVALID FOR* Constipation [K59.00] Abdominal pain, other specified site [R10.9] Kidney stones [N20.0] Diabetes mellitus type 2, controlled, without c*INVALID FOR* Osteoarthritis, multiple sites [M15.9] INVALID FOR* Shoulder pain [M25.519] INVALID FOR* Chronic knee pain [M25.569, G89.29] INVALID FOR* S/P TKR (total knee replacement) [Z96.659] INVALID FOR* Calculus of gallbladder with chronic cholecysti*INVALID FOR* Umbilical hernia without obstruction or gangren*INVALID FOR* Family history of ischemic heart disease [Z82.4*INVALID FOR* Opioid abuse [F11.10] INVALID FOR* More... 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] INVALID FOR* Chronic right shoulder pain [M25.511, G89.29] INVALID FOR* Balance disorder [R26.89] INVALID FOR* Use of cane as ambulatory aid [R26.2] INVALID FOR* Impaired vision [H54.7] INVALID FOR* Encounter Status:Closed by MICKI GOYAL on 08/22/17 SCREENING MAMM (CAD), Observed: 08/19/2017 Status: F Source: [place] 3:45 PM [facility] REPOSITORY [facility] Imaging Services [facility] [place] [address] SCREENING MAMM (CAD), BILAT MR#: [id number] Acct: [id number] Name: AFSANEH LOWE Rep #: [id number] : 1955 F 61 From: Jacob Solo MD PCP: Wallace Osorio DO Status: REG CLI Study: SCREENING MAMM (CAD), BILAT Date of Exam: 08/19/17 Exam# [id number] Ordering Dr: Cassidy Mccain MD MAMMOGRAPHY - BILATERAL SCREENING 3-D MIKE SYNTHESIS REASON FOR EXAM: Female, 61 years old. Bilateral Screening 3-D tomosynthesis PERTINENT HISTORY: No significant family history. TECHNIQUE: 2-D mammograms and 3-D Mike synthesis of the breast (s) were performed. CAD was performed. COMPARISON: December 23, 2015. FINDINGS: The breast composition is composed of scattered fibroglandular density. Scattered benign calcifications are seen. No dense spiculated masses or suspicious microcalcifications are identified. No architectural distortion is identified. There is no skin thickening or retraction. There has been no significant change since the prior study. BI/SCREENING MAMM (CAD), BILAT IMPRESSION: No mammographic signs of malignancy. Routine yearly mammograms recommended. ASSESSMENT CATEGORY: BIRADS Category 2: Benign. A letter regarding these results will be sent to the patient by the facility within 30 days. FOLLOW UP RECOMMENDATION: Yearly follow up mammogram recommended. (A) Approximately 10% of breast cancers are not detected by mammography. A normal mammogram should not delay biopsy of a clinically suspicious abnormality. Electronically Signed: Jacob Solo MD at 7:46 EDT , Service support , CC: Cassidy Mccain MD; Wallace Osorio DO Boning Room Worker: Signed HIP 2-3 VIEWS WITH Observed: 08/07/2017 Status: F Source: [place] PEL[place] 3:40 PM [facility] REPOSITORY [facility] Imaging Services [address] [place] [address] Hip 2-3 Views with Pelvis MR#: [id number] Acct: [id number] Name: AFSANEH LOWE Rep #: [id number] : 1955 F 61 From: Alisa Leal MD PCP: Wallace Osorio DO Status: REG CLI Study: Hip 2-3 Views with Pelvis Date of Exam: 08/07/17 Exam# [id number] Ordering Dr: Krissy Gillette MD STUDY: X-RAY - PELVIS AND RIGHT HIP REASON FOR EXAM: Female, 61 years old. Chronic pain TECHNIQUE: Three views of the pelvis and hip were obtained. COMPARISON: May 29, 2016 FINDINGS: The bowel gas pattern is unremarkable. Phleboliths are stable in the lower pelvis. The visualized iliac wings, sacroiliac joints and sacrum are unremarkable. No abnormalities are seen in the visualized superior and inferior pubic rami. Normal appearing pubic symphysis. The visualized ischial tuberosities are unremarkable. There is bony overgrowth off the femoral head. There is minimal sclerosis in the upper right acetabulum. There is moderate articular joint space narrowing of the hip. RAD/Hip 2-3 Views with Pelvis IMPRESSION: Moderate degenerative changes are again seen in the right hip. Electronically Signed: Alisa Leal MD at 2:16 EDT Tel Direct: [phone], Service support , CC: Wallace Osorio DO; Krissy Gillette M.D. Boning Room Worker: Signed PROGRESS Observed: 08/02/2017 Status: COMPLETED Source: [place] 3:11 PM [facility] REPOSITORY O ID: [id number] Author: Salinas Vigil Service: (none) Author Type: Physician Type: Progress Notes Filed: 08/03/2017 10:02 PM Note Text: Subjective: Patient presents to clinic c/o painful toenails. They state that the nails are especially painful with shoe gear and pressure. Patient states that nails 1-5 b/l are painful. Patient admits to being diabetic and states that their blood sugar was 131 mg/dL this AM. Patient requesting order for diabetic shoes. No other pedal complaints at this time. Patient states no change in medications or medical history since last visit. Objective: Patient presents to clinic ambulating in diabetic shoes Vasc: DP and PT pulses are decreased bilateral. CFT is less than 5 seconds bilateral. Skin temperature is warm to cool proximal to distal bilateral. There is mild edema or varicosities noted. Neuro: Protective sensation is decreased to the foot and toes when tested with the 5.07 SWM bilateral. Vibratory sensation is decreased at the hallux IPJ bilateral. The hallux is downgoing bilateral. Derm: Nails 1-5 b/l are painful, discolored-yellow, thick, crumbly, dystrophic and with subungal debris. Skin is of normal turgor, texture and hair growth is present bilateral. There are no hyperkeratosis, ulcerations, scars, verruca or other lesions noted. Ortho: Muscle strength is 5/5 for all pedal groups tested. Ankle joint DF is decreased with the knee extended with no pain or crepitus noted. 1st MPJ ROM is full bilateral. Assessment: (B35.1) Onychomycosis (primary encounter diagnosis) (M79.675) Pain in toe of left foot (M79.674) Pain in toe of right foot (E11.49) Other diabetic neurological complication associated with type 2 diabetes mellitus (HCC) PAD Plan: Patient was seen and evaluated. Nails 1-5 bilateral were debrided in length and thickness. Patient was instructed on the continued importance of diabetic foot care along with proper diet and keeping their blood sugar under control to prevent complications. Diabetic shoes were ordered Patient is to RTC in 3-4 months. Salinas Vigil DPM CNOV Observed: 08/02/2017 Status: COMPLETED Source: [place] 2:55 PM [facility] REPOSITORY Office Visit (PODIWS) AFSANEH LOWE ([id number]) 1955 F BLD Date Time Provider Department 08/02/17 2:55 PM SALINAS VIGIL PODIWS During your visit today, we recorded the following information about you: Salinas Vigil DPM 08/03/2017 10:02 PM Signed Subjective: Patient presents to clinic c/o painful toenails. They state that the nails are especially painful with shoe gear and pressure. Patient states that nails 1-5 b/l are painful. Patient admits to being diabetic and states that their blood sugar was 131 mg/dL this AM. Patient requesting order for diabetic shoes. No other pedal complaints at this time. Patient states no change in medications or medical history since last visit. Objective: Patient presents to clinic ambulating in diabetic shoes Vasc: DP and PT pulses are decreased bilateral. CFT is less than 5 seconds bilateral. Skin temperature is warm to cool proximal to distal bilateral. There is mild edema or varicosities noted. Neuro: Protective sensation is decreased to the foot and toes when tested with the 5.07 SWM bilateral. Vibratory sensation is decreased at the hallux IPJ bilateral. The hallux is downgoing bilateral. Derm: Nails 1-5 b/l are painful, discolored-yellow, thick, crumbly, dystrophic and with subungal debris. Skin is of normal turgor, texture and hair growth is present bilateral. There are no hyperkeratosis, ulcerations, scars, verruca or other lesions noted. Ortho: Muscle strength is 5/5 for all pedal groups tested. Ankle joint DF is decreased with the knee extended with no pain or crepitus noted. 1st MPJ ROM is full bilateral. Assessment: (B35.1) Onychomycosis (primary encounter diagnosis) (M79.675) Pain in toe of left foot (M79.674) Pain in toe of right foot (E11.49) Other diabetic neurological complication associated with type 2 diabetes mellitus (HCC) PAD Plan: Patient was seen and evaluated. Nails 1-5 bilateral were debrided in length and thickness. Patient was instructed on the continued importance of diabetic foot care along with proper diet and keeping their blood sugar under control to prevent complications. Diabetic shoes were ordered Patient is to RTC in 3-4 months. LAURI Moreno RN 08/02/2017 3:18 PM Signed [place] [id number] [facility], [facility] [address] PH: [phone] Referring Provider: SELF [[id number]] Allergies As of Date: 08/02/2017 Noted Allergy Reaction BEE STING 10/10/2012 10 - Anaphylaxis BETADINE (POVIDONE-IODINE) 12/17/2013 16 - Unknown IMITREX (SUMATRIPTAN SUCCINATE) 12/17/2005 11 - Vomiting TAPE (ADHESIVE TAPE (ROSINS)) 09/25/2012 14 - Other: See Comments Comments: Patients states paper tape makes her blister Date Reviewed: 08/02/2017 Reviewed by: Joanna De León Ma - Fully Assessed Reason for Visit: Diabetic Foot Care [916] Primary Visit Diagnosis:Onychomycosis [B35.1] Other Visit Diagnoses:Pain in toe of left foot [M79.675] Pain in toe of right foot [M79.674] Other diabetic neurological complication associated with type 2 diabetes mellitus ([facility]) [E11.49] PAD (peripheral artery disease) ([facility]) [I73.9] Order(s):DIAB SHOE FOR DENSITY INSERT [[id number]] Order #: [id number] Prescriptions as of 08/02/2017 Sig: PRAVASTATIN 80 MG TABLET TAKE 1 TABLET BY MOUTH AT BED* LISINOPRIL 5 MG TABLET TAKE 1 TABLET BY MOUTH DAILY COMPOUNDED PRESCRIPTION First Alert Dx: G40.309, R26.* COMPOUNDED PRESCRIPTION Washable [place] Bed pads Change* COMPOUNDED PRESCRIPTION ADULT DIAPERS NEEDS MORE ABSO* OYSTER SHELL CALCIUM-VITAMIN * TAKE 1 TABLET BY MOUTH DAILY BLOOD SUGAR DIAGNOSTIC STRIPS Test blood sugar(s) 4 times d* LANCETS 33 GAUGE Test blood sugars four times * NUTRITION TX GLU INTOL,LAC-FR* Take 1 Each by mouth once qaina* NEBULIZER ACCESSORIES KIT Dispense new tubing, medicati* OXYBUTYNIN CHLORIDE ER 10 MG * Take 1 tablet by mouth once d* ALBUTEROL SULFATE 2.5 MG/3 ML* Use 3 mL via nebulizer every * EPINEPHRINE 0.3 MG/0.3 ML INJ* as needed for allergic anaphy* METFORMIN 500 MG TABLET Take 1 tablet by mouth twice * COMPOUNDED PRESCRIPTION LIFT MECHANISM FOR LIFT CHAIR* COMPOUNDED PRESCRIPTION RAISED TOILET SEAT WITH ARMS * OLOPATADINE 0.1 % EYE DROPS USE 1 DROP IN BOTH EYES TWICE* COMPOUNDED PRESCRIPTION Dispense wheeled walker with * HALOPERIDOL 5 MG TABLET 8 tablets three times daily. PHENYTOIN SODIUM EXTENDED 100* Takes 2 capsules 3 times per * MAGNESIUM OXIDE 400 MG TABLET Take 1 tablet by mouth every * PROAIR HFA 90 MCG/ACTUATION A* INHALE 2 PUFFS BY MOUTH EVERY* TOPIRAMATE 50 MG TABLET Take 1 tablet by mouth twice * NITROGLYCERIN 0.4 MG SUBLINGU* Dissolve 1 tablet under the t* VENLAFAXINE ER 75 MG CAPSULE,* Take 2 capsules by mouth once* ALCOHOL PREP PADS USE TWICE DAILY COMPOUNDED PRESCRIPTION High Back Shower Chair that h* RIZATRIPTAN 10 MG TABLET Take 10 mg by mouth as needed* HYDROCODONE 7.5 MG-ACETAMINOP* Take by mouth three times da* COMPOUNDED PRESCRIPTION KNEE HIGH COMPRESSION STOCKIN* COMPOUNDED PRESCRIPTION Diabetic booster 2 cases per* MUPIROCIN 2 % TOPICAL OINTMENT Apply 1 application to affect* COMPOUNDED PRESCRIPTION 1 Device as needed. NEBULIZER* COMPOUNDED PRESCRIPTION Registered Nurse services in * COMPOUNDED PRESCRIPTION Nurses Aid in home care, 33 h* BLOOD-GLUCOSE METER KIT Glucose Meter of Choice - Kit* ASPIRIN 81 MG TABLET,DELAYED * Take 1 tablet by mouth once d* SILVER SULFADIAZINE 1 % TOPIC* Apply 1 application to affect* CLONAZEPAM 1 MG TABLET Take 1 tablet by mouth three * * ZIPRASIDONE 80 MG CAPSULE Take 1 capsule by mouth twice* Problem List As Of Date 08/02/2017 Noted Resolved MITRAL VALVE DISORDER [I05.9] DIARRHEA NOS [R19.7] INVALID FOR* Benign neoplasm of colon [D12.6] INVALID FOR* Benign neoplasm of rectum and anal canal [D12.8*INVALID FOR* GERD (gastroesophageal reflux disease) [K21.9] INVALID FOR* Hiatal hernia [K44.9] INVALID FOR* Right rotator cuff tear [M75.101] INVALID FOR* Paranoid schizophrenia (HCC) [F20.0] INVALID FOR* Blepharospasm [G24.5] INVALID FOR* Hypertension [I10] INVALID FOR* Hyperlipidemia [E78.5] INVALID FOR* Intractable migraine without aura [G43.019] INVALID FOR*03/13/2016 Intractable migraine with aura [G43.119] INVALID FOR* 8.2.3 Analgesic overuse headache [F55.2] [339.3*INVALID FOR* Constipation [K59.00] Abdominal pain, other specified site [R10.9] Kidney stones [N20.0] Diabetes mellitus type 2, controlled, without c*INVALID FOR* Osteoarthritis, multiple sites [M15.9] INVALID FOR* Shoulder pain [M25.519] INVALID FOR* Chronic knee pain [M25.569, G89.29] INVALID FOR* S/P TKR (total knee replacement) [Z96.659] INVALID FOR* Calculus of gallbladder with chronic cholecysti*INVALID FOR* Umbilical hernia without obstruction or gangren*INVALID FOR* Family history of ischemic heart disease [Z82.4*INVALID FOR* Opioid abuse [F11.10] INVALID FOR* More... 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] INVALID FOR* Chronic right shoulder pain [M25.511, G89.29] INVALID FOR* Balance disorder [R26.89] INVALID FOR* Use of cane as ambulatory aid [R26.2] INVALID FOR* Impaired vision [H54.7] INVALID FOR* Other instructions from your clinician: Rambo Leal [place] [address] [facility], [facility] [address] PH: [phone] Disposition: Return in about 3 months (around 11/01/2017) for nail care. Follow-up and Disposition History Recorded Encounter Status:Closed by SALINAS VIGIL DPM on 08/03/17 PROGRESS Observed: 07/17/2017 Status: COMPLETED Source: [place] 8:32 AM [facility] REPOSITORY HNO ID: [id number] Author: Angie Reeves (Hand Tacker) WOODY Stephens.[place] Service: (none) Author Type: Nurse Practitioner Type: Progress Notes Filed: 07/17/2017 8:41 AM Note Text: HPI/CC; Afsaneh Lowe is a 61 year old female who presents for PSG follow up. Obtained report from [facility] on 06/19/2017. Patient shows no signs of ANTONY. Patient continues to struggle with sleep. Denies CP, SOB, palpitations. ROS as above, otherwise non-contributory. Reviewed PMHx, PSHx, social Hx, medications and allergies. PHYSICAL EXAMINATION: BP 104/68 Pulse 80 Resp 16 Wt 103.4 kg (228 lb) BMI 41.7 kg/m2 General appearance: Well appearing, alert, in no acute distress, well-hydrated, well nourished., Obese Lungs: Lungs clear to auscultation. No wheezing, rhonchi, rales Heart: RRR without murmur, gallop, or rubs. No ectopy ASSESSMENT/PLAN: 1. Sleep disturbance - ICD9: 780.50, ICD10: G47.9 - CONSULT TO SLEEP MEDICINE - ADULT - see patient instructions for good sleep hygiene. Angie Stephens APRN.CNP CNOV Observed: 07/16/2017 Status: COMPLETED Source: [place] 3:00 PM [facility] REPOSITORY Office Visit (FAMPWS) AFSANEH LOWE ([id number]) 1955 F MICHELLE Date Time Provider Department 07/16/17 3:00 PM [facility] STEPHENS ([place]) [facility] During your visit today, we recorded the following information about you: Pulse Respiration Blood pressure Weight 80/minute 16/minute 104/68 103.4 kg Angie Stephens APRN.CNP, APRN.CNP 07/16/2017 3:53 PM Signed GENERAL INFO: SLEEP HYGEINE SUGGESTIONS: -Avoid caffeine, alcohol and nicotine before bed. -Exercise is OK but should be done 5 hours before bedtime. -Warm bath is helpful if done 2 hours before bedtime. -Have a regular pre-sleep routine. Assign 30min. worry time to make plans for following day, list concerns, etc. -Do not spend non-sleep time in bed. The bed is used only for sleeping. No eating, watching TV, reading, etc. -Do not sleep anywhere other than your bed. No couches, recliners, etc. -Get up at the same time every morning regardless of the amount of sleep you have had. -Spend no more than 20 minutes trying to fall asleep. If not asleep after 20min. get up, go to another room to read, watch TV, etc. until feeling sleepy. Go back to bed. If not asleep in 20min repeat the above routine until you fall asleep. - Napping is OK if limit time to one hour and taken before 1:30PM -Track amount of time you actually spend sleeping per night. Spend only that amount of time in bed. Example: If you record 4 hours of sleep time per night and need to get up at 6AM do not go to bed until 2AM. Continue doing this until you can sleep straight through. You can then start increasing the time in bed so sleep time can be lengthened. You may feel worse after first week but should improve in 3-4 weeks. Wear socks to bed (lowers core body temperature). Angie Stephens APRN.PHU NGUYEN 07/17/2017 8:41 AM Signed HPI/CC; Afsaneh Lowe is a 61 year old female who presents for PSG follow up. Obtained report from [facility] on 06/19/2017. Patient shows no signs of ANTONY. Patient continues to struggle with sleep. Denies CP, SOB, palpitations. ROS as above, otherwise non-contributory. Reviewed PMHx, PSHx, social Hx, medications and allergies. PHYSICAL EXAMINATION: BP 104/68 Pulse 80 Resp 16 Wt 103.4 kg (228 lb) BMI 41.7 kg/m2 General appearance: Well appearing, alert, in no acute distress, well-hydrated, well nourished., Obese Lungs: Lungs clear to auscultation. No wheezing, rhonchi, rales Heart: RRR without murmur, gallop, or rubs. No ectopy ASSESSMENT/PLAN: 1. Sleep disturbance - ICD9: 780.50, ICD10: G47.9 - CONSULT TO SLEEP MEDICINE - ADULT - see patient instructions for good sleep hygiene. Angie Stephens APRN.[place] Referring Provider: SELF [200] Allergies As of Date: 07/16/2017 Noted Allergy Reaction BEE STING 10/10/2012 10 - Anaphylaxis BETADINE (POVIDONE-IODINE) 12/17/2013 16 - Unknown IMITREX (SUMATRIPTAN SUCCINATE) 12/17/2005 11 - Vomiting TAPE (ADHESIVE TAPE (ROSINS)) 09/25/2012 14 - Other: See Comments Comments: Patients states paper tape makes her blister Date Reviewed: 07/16/2017 Reviewed by: Young Elizalde LPN - Fully Assessed Reason for Visit: Recheck [92] Cmt: follow up Primary Visit Diagnosis:Sleep disturbance [G47.9] Order(s):CONSULT TO SLEEP MEDICINE - ADULT [[id number]] Order #: [id number]: 1 Prescriptions as of 07/16/2017 Sig: PRAVASTATIN 80 MG TABLET TAKE 1 TABLET BY MOUTH AT BED* LISINOPRIL 5 MG TABLET TAKE 1 TABLET BY MOUTH DAILY OYSTER SHELL CALCIUM-VITAMIN * TAKE 1 TABLET BY MOUTH DAILY BLOOD SUGAR DIAGNOSTIC STRIPS Test blood sugar(s) 4 times d* LANCETS 33 GAUGE Test blood sugars four times * NUTRITION TX GLU INTOL,LAC-FR* Take 1 Each by mouth once qiana* NEBULIZER ACCESSORIES KIT Dispense new tubing, medicati* OXYBUTYNIN CHLORIDE ER 10 MG * Take 1 tablet by mouth once d* ALBUTEROL SULFATE 2.5 MG/3 ML* Use 3 mL via nebulizer every * EPINEPHRINE 0.3 MG/0.3 ML INJ* as needed for allergic anaphy* METFORMIN 500 MG TABLET Take 1 tablet by mouth twice * OLOPATADINE 0.1 % EYE DROPS USE 1 DROP IN BOTH EYES TWICE* HALOPERIDOL 5 MG TABLET 8 tablets three times daily. PHENYTOIN SODIUM EXTENDED 100* Takes 2 capsules 3 times per * MAGNESIUM OXIDE 400 MG TABLET Take 1 tablet by mouth every * PROAIR HFA 90 MCG/ACTUATION A* INHALE 2 PUFFS BY MOUTH EVERY* TOPIRAMATE 50 MG TABLET Take 1 tablet by mouth twice * NITROGLYCERIN 0.4 MG SUBLINGU* Dissolve 1 tablet under the t* VENLAFAXINE ER 75 MG CAPSULE,* Take 2 capsules by mouth once* RIZATRIPTAN 10 MG TABLET Take 10 mg by mouth as needed* HYDROCODONE 7.5 MG-ACETAMINOP* Take by mouth three times da* ASPIRIN 81 MG TABLET,DELAYED * Take 1 tablet by mouth once d* SILVER SULFADIAZINE 1 % TOPIC* Apply 1 application to affect* CLONAZEPAM 1 MG TABLET Take 1 tablet by mouth three * * ZIPRASIDONE 80 MG CAPSULE Take 1 capsule by mouth twice* COMPOUNDED PRESCRIPTION First Alert Dx: G40.309, R26.* COMPOUNDED PRESCRIPTION Washable [place] Bed pads Change* COMPOUNDED PRESCRIPTION ADULT DIAPERS NEEDS MORE ABSO* COMPOUNDED PRESCRIPTION LIFT MECHANISM FOR LIFT CHAIR* COMPOUNDED PRESCRIPTION RAISED TOILET SEAT WITH ARMS * COMPOUNDED PRESCRIPTION Dispense wheeled walker with * ALCOHOL PREP PADS USE TWICE DAILY COMPOUNDED PRESCRIPTION High Back Shower Chair that h* COMPOUNDED PRESCRIPTION KNEE HIGH COMPRESSION STOCKIN* COMPOUNDED PRESCRIPTION Diabetic booster 2 cases per* MUPIROCIN 2 % TOPICAL OINTMENT Apply 1 application to affect* COMPOUNDED PRESCRIPTION 1 Device as needed. NEBULIZER* COMPOUNDED PRESCRIPTION Registered Nurse services in * COMPOUNDED PRESCRIPTION Nurses Aid in home care, 33 h* BLOOD-GLUCOSE METER KIT Glucose Meter of Choice - Kit* Problem List As Of Date 07/16/2017 Noted Resolved MITRAL VALVE DISORDER [I05.9] DIARRHEA NOS [R19.7] INVALID FOR* Benign neoplasm of colon [D12.6] INVALID FOR* Benign neoplasm of rectum and anal canal [D12.8*INVALID FOR* GERD (gastroesophageal reflux disease) [K21.9] INVALID FOR* Hiatal hernia [K44.9] INVALID FOR* Right rotator cuff tear [M75.101] INVALID FOR* Paranoid schizophrenia (HCC) [F20.0] INVALID FOR* Blepharospasm [G24.5] INVALID FOR* Hypertension [I10] INVALID FOR* Hyperlipidemia [E78.5] INVALID FOR* Intractable migraine without aura [G43.019] INVALID FOR*03/13/2016 Intractable migraine with aura [G43.119] INVALID FOR* 8.2.3 Analgesic overuse headache [F55.2] [339.3*INVALID FOR* Constipation [K59.00] Abdominal pain, other specified site [R10.9] Kidney stones [N20.0] Diabetes mellitus type 2, controlled, without c*INVALID FOR* Osteoarthritis, multiple sites [M15.9] INVALID FOR* Shoulder pain [M25.519] INVALID FOR* Chronic knee pain [M25.569, G89.29] INVALID FOR* S/P TKR (total knee replacement) [Z96.659] INVALID FOR* Calculus of gallbladder with chronic cholecysti*INVALID FOR* Umbilical hernia without obstruction or gangren*INVALID FOR* Family history of ischemic heart disease [Z82.4*INVALID FOR* Opioid abuse [F11.10] INVALID FOR* More... 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] INVALID FOR* Chronic right shoulder pain [M25.511, G89.29] INVALID FOR* Balance disorder [R26.89] INVALID FOR* Use of cane as ambulatory aid [R26.2] INVALID FOR* Impaired vision [H54.7] INVALID FOR* Other instructions from your clinician: GENERAL INFO: SLEEP HYGEINE SUGGESTIONS: -Avoid caffeine, alcohol and nicotine before bed. -Exercise is OK but should be done 5 hours before bedtime. -Warm bath is helpful if done 2 hours before bedtime. -Have a regular pre-sleep routine. Assign 30min. worry time to make plans for following day, list concerns, etc. -Do not spend non-sleep time in bed. The bed is used only for sleeping. No eating, watching TV, reading, etc. -Do not sleep anywhere other than your bed. No couches, recliners, etc. -Get up at the same time every morning regardless of the amount of sleep you have had. -Spend no more than 20 minutes trying to fall asleep. If not asleep after 20min. get up, go to another room to read, watch TV, etc. until feeling sleepy. Go back to bed. If not asleep in 20min repeat the above routine until you fall asleep. - Napping is OK if limit time to one hour and taken before 1:30PM -Track amount of time you actually spend sleeping per night. Spend only that amount of time in bed. Example: If you record 4 hours of sleep time per night and need to get up at 6AM do not go to bed until 2AM. Continue doing this until you can sleep straight through. You can then start increasing the time in bed so sleep time can be lengthened. You may feel worse after first week but should improve in 3-4 weeks. Wear socks to bed (lowers core body temperature). Encounter Status:Closed by ANGIE STEPHENS CNP on 07/17/17 RAYMUNDO Observed: 06/04/2017 Status: COMPLETED Source: [place] 12:00 AM [facility] REPOSITORY [facility] Out[facility] AFSANEH LOWE ([id number]) 1955 F BLD Date Time Provider Department 06/04/17 WALLACE FAIR During your visit today, we recorded the following information about you: Allergies As of Date: 06/04/2017 Noted Allergy Reaction BEE STING 10/10/2012 10 - Anaphylaxis BETADINE (POVIDONE-IODINE) 12/17/2013 16 - Unknown IMITREX (SUMATRIPTAN SUCCINATE) 12/17/2005 11 - Vomiting TAPE (ADHESIVE TAPE (ROSINS)) 09/25/2012 14 - Other: See Comments Comments: Patients states paper tape makes her blister Date Reviewed: 05/31/2017 Reviewed by: Young Elizalde LPN - Fully Assessed Visit Diagnosis:Medication management [Z79.899] Order(s):ALBUMIN/CREAT RATIO RND UR [SQUACR] Order #: [id number] FUTURE LIPID PANEL, NONFASTING [SQLIPNF] Order #: [id number] FUTURE Prescriptions as of 06/04/2017 Sig: OYSTER SHELL CALCIUM-VITAMIN * TAKE 1 TABLET BY MOUTH DAILY BLOOD SUGAR DIAGNOSTIC STRIPS Test blood sugar(s) 4 times d* LANCETS 33 GAUGE Test blood sugars four times * NUTRITION TX GLU INTOL,LAC-FR* Take 1 Each by mouth once qiana* NEBULIZER ACCESSORIES KIT Dispense new tubing, medicati* OXYBUTYNIN CHLORIDE ER 10 MG * Take 1 tablet by mouth once d* ALBUTEROL SULFATE 2.5 MG/3 ML* Use 3 mL via nebulizer every * EPINEPHRINE 0.3 MG/0.3 ML INJ* as needed for allergic anaphy* METFORMIN 500 MG TABLET Take 1 tablet by mouth twice * COMPOUNDED PRESCRIPTION LIFT MECHANISM FOR LIFT CHAIR* COMPOUNDED PRESCRIPTION RAISED TOILET SEAT WITH ARMS * OLOPATADINE 0.1 % EYE DROPS USE 1 DROP IN BOTH EYES TWICE* COMPOUNDED PRESCRIPTION Dispense wheeled walker with * HALOPERIDOL 5 MG TABLET 8 tablets three times daily. PHENYTOIN SODIUM EXTENDED 100* Takes 2 capsules 3 times per * MAGNESIUM OXIDE 400 MG TABLET Take 1 tablet by mouth every * PRAVASTATIN 80 MG TABLET TAKE 1 TABLET BY MOUTH AT BED* PROAIR HFA 90 MCG/ACTUATION A* INHALE 2 PUFFS BY MOUTH EVERY* TOPIRAMATE 50 MG TABLET Take 1 tablet by mouth twice * NITROGLYCERIN 0.4 MG SUBLINGU* Dissolve 1 tablet under the t* VENLAFAXINE ER 75 MG CAPSULE,* Take 2 capsules by mouth once* LISINOPRIL 5 MG TABLET Take 1 tablet by mouth once d* ALCOHOL PREP PADS USE TWICE DAILY COMPOUNDED PRESCRIPTION High Back Shower Chair that h* RIZATRIPTAN 10 MG TABLET Take 10 mg by mouth as needed* HYDROCODONE 7.5 MG-ACETAMINOP* Take by mouth three times da* COMPOUNDED PRESCRIPTION KNEE HIGH COMPRESSION STOCKIN* COMPOUNDED PRESCRIPTION Diabetic booster 2 cases per* MUPIROCIN 2 % TOPICAL OINTMENT Apply 1 application to affect* COMPOUNDED PRESCRIPTION 1 Device as needed. NEBULIZER* COMPOUNDED PRESCRIPTION Registered Nurse services in * COMPOUNDED PRESCRIPTION Nurses Aid in home care, 33 h* BLOOD-GLUCOSE METER KIT Glucose Meter of Choice - Kit* ASPIRIN 81 MG TABLET,DELAYED * Take 1 tablet by mouth once d* SILVER SULFADIAZINE 1 % TOPIC* Apply 1 application to affect* CLONAZEPAM 1 MG TABLET Take 1 tablet by mouth three * * ZIPRASIDONE 80 MG CAPSULE Take 1 capsule by mouth twice* Problem List As Of Date 06/04/2017 Noted Resolved MITRAL VALVE DISORDER [I05.9] DIARRHEA NOS [R19.7] INVALID FOR* Benign neoplasm of colon [D12.6] INVALID FOR* Benign neoplasm of rectum and anal canal [D12.8*INVALID FOR* GERD (gastroesophageal reflux disease) [K21.9] INVALID FOR* Hiatal hernia [K44.9] INVALID FOR* Right rotator cuff tear [M75.101] INVALID FOR* Paranoid schizophrenia (HCC) [F20.0] INVALID FOR* Blepharospasm [G24.5] INVALID FOR* Hypertension [I10] INVALID FOR* Hyperlipidemia [E78.5] INVALID FOR* Intractable migraine without aura [G43.019] INVALID FOR*03/13/2016 Intractable migraine with aura [G43.119] INVALID FOR* 8.2.3 Analgesic overuse headache [F55.2] [339.3*INVALID FOR* Constipation [K59.00] Abdominal pain, other specified site [R10.9] Kidney stones [N20.0] Diabetes mellitus type 2, controlled, without c*INVALID FOR* Osteoarthritis, multiple sites [M15.9] INVALID FOR* Shoulder pain [M25.519] INVALID FOR* Chronic knee pain [M25.569, G89.29] INVALID FOR* S/P TKR (total knee replacement) [Z96.659] INVALID FOR* Calculus of gallbladder with chronic cholecysti*INVALID FOR* Umbilical hernia without obstruction or gangren*INVALID FOR* Family history of ischemic heart disease [Z82.4*INVALID FOR* Opioid abuse [F11.10] INVALID FOR* More... 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] INVALID FOR* Chronic right shoulder pain [M25.511, G89.29] INVALID FOR* Balance disorder [R26.89] INVALID FOR* Use of cane as ambulatory aid [R26.2] INVALID FOR* Impaired vision [H54.7] INVALID FOR* Encounter Status:Closed by LUCINA, PRODUSER on 06/16/17 PROGRESS Observed: 05/31/2017 Status: COMPLETED Source: [place] 1:45 PM [facility] REPOSITORY HNO ID: [id number] Author: Angie Reeves (Hand Tacker) MARLEY Stephens Service: (none) Author Type: Nurse Practitioner Type: Progress Notes Filed: 06/03/2017 12:09 PM Note Text: HPI/CC: Afsaneh Lowe is a 61 year old female who presents for Hospital F/U ([facility] dx: chest pain and fall. During hospiutal stay was identified as at increased risk for ANTONY Overall feeling well. Slightly more depressed d/t friends recent Dx of cancer. Reports daytime fatigue, snoring but no apnea. ROS as above, otherwise non-contributory. Reviewed PMHx, PSHx, social Hx, medications and allergies. PHYSICAL EXAMINATION: BP 126/88 Pulse 94 Resp 16 Wt 103 kg (227 lb) BMI 41.52 kg/m2 General appearance: Well appearing, alert, in no acute distress, well-hydrated, well nourished., Overweight Skin: Skin color, texture, turgor normal, no suspicious rashes or lesions Head: Normocephalic, no masses, lesions, tenderness or abnormalities ASSESSMENT/PLAN: 1. ANTONY (obstructive sleep apnea) - ICD9: 327.23, ICD10: G47.33 (primary diagnosis) - POLYSOMNOGRAM (PSG)/HOME SLEEP APNEA TESTING (HSAT) 2. Chest pain, unspecified type - ICD9: 786.50, ICD10: R07.9 Chest pain of unclear etiology, patient with significant risk factor(s) of Diabetes Mellitus, Hypertension, Hyperlipidemia and smoking 3. Fall, initial encounter - ICD9: E888.9, ICD10: W19.XXXA - monitor, doing well has a cane Angie Stephens CNP 12 LEAD ELECTROCARDIOGRAM Observed: 05/23/2017 Status: F Source: [place] 2:08 PM [facility] REPOSITORY [facility] Cardiovascular Services [address] [place] [address] 12 Lead EKG 05/22/17 0524 MR#: [id number] Acct: [id number] Name: AFSANEH LOWE Rep #: [id number] : 1955 61 From: Conor Genao MD Attending Dr: Grant Jeffries DO Status: DIS [facility] Ordering Dr: Fabrizio Mendez MD Date: 05/22/17 Location: [facility] Sex: F C Admitted: 05/21/17 Test Reason : MORNING EKG Blood Pressure : / mmHG Vent. Rate : 080 BPM Atrial Rate : 080 BPM P-R Int : 178 ms QRS Dur : 078 ms QT Int : 358 ms P-R-T Axes : 058 -18 000 degrees QTc Int : 412 ms Normal sinus rhythm Normal ECG When compared with ECG of 21-MAY-2017 13:04, MANUAL COMPARISON REQUIRED, DATA IS UNCONFIRMED Confirmed by CNOOR GENAO ([id number]), editorial intern PHUONG VELEZ ([id number]) on 05/23/2017 2:08:31 PM Referred By: ANDREA Confirmed By:CONOR GENAO 05/23/17 1408 Date Conor Genao MD CC: Wallace Fair DO Signed 12 LEAD ELECTROCARDIOGRAM Observed: 05/23/2017 Status: F Source: [place] 12:03 PM [facility] REPOSITORY [facility] Cardiovascular Services [address] [place] [address] 12 Lead EKG 05/21/17 1304 MR#: [id number] Acct: [id number] Name: AFSANEH LOWE Rep #: [id number] : 1955 61 From: Conor Genao MD Attending Dr: Grant Jeffries DO Status: DIS [facility] Ordering Dr: Georges Rangel MD Date: 05/21/17 Location: [facility] Sex: F C Admitted: 05/21/17 Test Reason : CP Blood Pressure : / mmHG Vent. Rate : 085 BPM Atrial Rate : 085 BPM P-R Int : 198 ms QRS Dur : 068 ms QT Int : 340 ms P-R-T Axes : 039 -12 015 degrees QTc Int : 404 ms Normal sinus rhythm Inferior infarct , age undetermined Abnormal ECG Confirmed by CONOR GENAO ([id number]), editorial intern PHUONG VELEZ ([id number]) on 05/23/2017 12:03:07 PM Referred By: BRISA Confirmed By:CONOR GENAO 05/23/17 1203 Date Conor Genao MD CC: Wallace Fair DO Signed DISCHARGE SUMMARY Observed: 05/22/2017 Status: F Source: [place] 5:19 PM [facility] REPOSITORY [facility] Medical Records Department [address] [place] [address] Discharge Summary 05/22/17 1716 MR#: [id number] Acct: [id number] Name: AFSANEH LOWE Rep #: [id number] : 1955 61 From: Grant Jeffries DO PCP: Wallace Fair DO Status: DIS [facility] Y Location: [place] [address] Discharge Date and Diagnosis Date of Admission: 05/21/17 Date of Discharge: 05/22/17 - Primary Discharge Diagnosis #1 musculoskeletal chest pain - Secondary Discharge Diagnosis Chronic Problems Tobacco user (Chronic) MVP (mitral valve prolapse) (Chronic) HTN (hypertension) (Chronic) Legal blindness (Chronic) Diabetes (Chronic) Spondylosis of lumbar region without myelopathy or radiculopathy (Chronic) Hospital Course and Treatment Operations: None Procedures: Nuclear stress test Summary of Care Provided: The patient is a 61 year old F was seen in the emergency room at [facility] with a chief complaint of chest pain which was ongoing for 2 days. Workup in the emergency room included an EKG which was unremarkable, a chest x-ray which was normal, and blood work which was unremarkable except for a mild leukocytosis at 11.3. Patient was placed in observation status on PCU, cardiac enzymes were cycled and these remained normal, patient underwent a nuclear stress test which showed no evidence of reversible ischemia. On 05/22/17, patient was seen and examined and felt to be in stable condition for discharge home. Discharge Activity: Return to Normal Activity Weight Bearing Status: Full weight bearing Home Medications: Medications to take at Discharge Ziprasidone HCl [Geodon] 80 mg PO BID 07/11/13 Venlafaxine HCl [Effexor] 150 mg PO DAILY 10/31/13 Metformin HCl [Glucophage] 500 mg PO BIDCM 09/07/15 Pravastatin [Pravachol] 80 mg PO QHS 09/07/15 Albuterol Aerosols [Ventolin Aerosols] 2.5 mg INHALATION Q4H PRN PRN 03/11/16 Albuterol IH (ProAir) [Proair Hfa] 2 puff INHALATION Q6H PRN PRN 03/11/16 Aspirin [Aspirin, Baby] 81 mg PO DAILY@0800 03/11/16 Magnesium Oxide 400 mg PO DAILY 03/11/16 Rizatriptan Benzoate [Rizatriptan] 10 mg PO DAILY PRN PRN 03/11/16 Hydrocodone/Acetaminophen [Hydrocodone-Acetamin 5-325 mg] 1 each PO TID 05/29/16 Lisinopril [Prinivil] 5 mg PO DAILY 05/29/16 Methocarbamol 500 mg PO QHS 05/29/16 Topiramate [Topiramate ER] 50 mg PO BID 05/29/16 Haloperidol 20 mg PO TID 05/21/17 Primary Care Physician: Wallace Fair DO [Primary Care Provider] - Please follow up with your Primary Care Physician in: at next scheduled appointment time Disposition: Home Minutes spent on discharge:: 25 Patient Condition:: Stable Meaningful Use Info Meaningful Use Diagnoses (Choose all that apply): None applicable Code Visit OBSV E AND M: 85784 Observation care discharge 05/22/17 1719 <Electronically signed by Grant Jeffries DO> Date Grant Jeffries DO Cosigner Signature (if applicable): Date CC: Wallace Fair DO; Grant Jeffries DO Signed DISCHARGE INSTRUCTION Observed: 05/22/2017 Status: F Source: [place] 1:42 PM [facility] REPOSITORY [facility] Medical Records Department [address] [place] [address] Instructions for Home/Discharge Instructions 05/22/17 1341 MR#: [id number] Acct: [id number] Name: AFSANEH LOWE Rep #: [id number] : 1955 61 From: Grant Jeffries DO PCP: Wallace Fair DO Status: ADM [facility] - Discharge Diagnoses Current Active Problems: Current Active and Chronic Problems Atypical right-sided chest pain (Acute) You will use the following diet at home:: Calorie/Carbohydrate Controlled (specify 1200, 1400, etc) - 1800 Your food should be the consistency of: Regular Your liquids should be the consistency of: Regular/Thin Discharge Activity: Return to Normal Activity Weight Bearing Status: Full weight bearing Allergies/Adverse Reactions: Allergies sumatriptan [From Imitrex] Adverse Reaction (Verified 05/21/17 13:07) Vomiting sumatriptan succinate [From Imitrex] Adverse Reaction (Verified 05/21/17 13:07) Vomiting BEE STING Allergy (Uncoded 05/21/17 13:07) Anaphylaxis PAPER TAPE Adverse Reaction (Uncoded 05/21/17 13:07) Rash Medications to take at Discharge Ziprasidone HCl [Geodon] 80 mg PO BID 07/11/13 Venlafaxine HCl [Effexor] 150 mg PO DAILY 10/31/13 Metformin HCl [Glucophage] 500 mg PO BIDCM 09/07/15 Pravastatin [Pravachol] 80 mg PO QHS 09/07/15 Albuterol Aerosols [Ventolin Aerosols] 2.5 mg INHALATION Q4H PRN PRN 03/11/16 Albuterol IH (ProAir) [Proair Hfa] 2 puff INHALATION Q6H PRN PRN 03/11/16 Aspirin [Aspirin, Baby] 81 mg PO DAILY@0800 03/11/16 Magnesium Oxide 400 mg PO DAILY 03/11/16 Rizatriptan Benzoate [Rizatriptan] 10 mg PO DAILY PRN PRN 03/11/16 Hydrocodone/Acetaminophen [Hydrocodone-Acetamin 5-325 mg] 1 each PO TID 05/29/16 Lisinopril [Prinivil] 5 mg PO DAILY 05/29/16 Methocarbamol 500 mg PO QHS 05/29/16 Topiramate [Topiramate ER] 50 mg PO BID 05/29/16 Haloperidol 20 mg PO TID 05/21/17 Primary Care Physician: Wallace Fair DO [Primary Care Provider] - Please follow up with your Primary Care Physician in: at next scheduled appointment time 05/22/17 1342 <Electronically signed by Grant Jeffries DO> Date Grant Jeffries DO CC: Wallace Fair DO HISTORY AND PHYSICAL Observed: 05/22/2017 Status: F Source: [place] EXAM 1:04 PM [facility] REPOSITORY [facility] Medical Records Department [address] [place] [address] History and Physical 05/21/17 1559 MR#: [id number] Acct: [id number] Name: CHRISSYAFSANEH M Rep #: [id number] : 1955 61 From: Fabrizio Mendez MD PCP: Wallace Fair DO Status: ADM [facility] Y Location: [place] [address] Problem List (1) Atypical right-sided chest pain Status: Acute (2) Tobacco user Status: Chronic (3) MVP (mitral valve prolapse) Status: Chronic (4) HTN (hypertension) Status: Chronic (5) Legal blindness Status: Chronic (6) Diabetes Status: Chronic (7) Spondylosis of lumbar region without myelopathy or radiculopathy Status: Chronic History of Present Illness Date of Admission: 05/21/17 Chief Complaint: Chest pain for last 2 days The patient is a 61 year old F with history of COPD, hypertension and diabetes mellitus type 2 as mentioned above came to ER with right-sided chest pain, constant for last 2 days. Chest pain gets exacerbated on exertion, on walking, localized, right subclavicular region without radiation associated with mild shortness of breath. Patient denies near syncope or syncope. Patient has a chronic history of seizure disorder and migraine. [] In ED, her basic blood work was unremarkable except mild leukocytosis 11.3 thousand. Past Medical History Past Medical History (Chronic Problems): Chronic Problems Tobacco user (Chronic) MVP (mitral valve prolapse) (Chronic) HTN (hypertension) (Chronic) Legal blindness (Chronic) Diabetes (Chronic) Spondylosis of lumbar region without myelopathy or radiculopathy (Chronic) Allergies sumatriptan [From Imitrex] Adverse Reaction (Verified 05/21/17 13:07) Vomiting sumatriptan succinate [From Imitrex] Adverse Reaction (Verified 05/21/17 13:07) Vomiting BEE STING Allergy (Uncoded 05/21/17 13:07) Anaphylaxis PAPER TAPE Adverse Reaction (Uncoded 05/21/17 13:07) Rash Home Medications: Ambulatory Orders Medication Instructions Recorded Ziprasidone HCl [Geodon] 80 mg PO BID 07/11/13 Surgical History: noncontributory Smoking Status: Current some day smoker - *Family History Maternal History Items: No pertinent history Paternal History Items: Heart Disease - Her father has a pacemaker. Review of Systems Constitutional: Denies: Chills, Fever, Weight Change HEENT: Denies: Head Aches, Sinus Congestion, Sinus Drainage Cardiovascular: Reports: Chest Pain. Denies: Palpitations Respiratory: Reports: Shortness of Breath. Denies: Cough, Shortness of breath at rest, Sputum production, Wheezing Gastrointestinal: Denies: Abdominal Pain, Nausea, Vomiting Genitourinary: Denies: Dysuria Musculoskeletal: Reports: Joint Pain. Denies: Joint Tenderness Skin: Denies: Rash, Wounds Neurological: Denies: Numbness, Tingling, Focal weakness Psychiatric: Reports: Anxiety. Denies: Depression, Homicidal Ideations, Suicidal Ideations Hematologic/ Lymphatic: Denies: Easy Bruising, Easy Bleeding VTE Information - Inpt Only VTE Present on Admission: No VTE Mechan Device Prophylaxis: SCD's VTE Pharm Prophylaxis ordered?: Yes Patient Problems: Active and Suspected Problems Atypical right-sided chest pain (Acute) - Physical Exam General: Alert, Oriented x3, Cooperative HEENT: Atraumatic, PERRLA, EOMI, Normocephalic Oral: Moist Mucosa Neck: Supple, No JVD, Negative Carotid Bruits Lungs: No rhonchi, No wheeze, No rales, Diminished Cardiovascular: Regular rate, Regular Rhythm, Normal S1, Normal S2, No murmurs, Murmur - Systolic, grade 2/6 present over mitral area Abdomen: Bowel Sounds Present, Soft, Non Tender, Non-Distended Extremities: Capillary Refill Less than 3 Seconds, Edema, - - Bilateral TKR scar. Skin: No rashes, No breakdown Musculoskeletal: No Tenderness to Palpation of Joints or Extremities Neurological: Cranial nerves II-XII grossly intact Psych/Mental Status: Normal Affect, Appropriate Vital Signs Temp Pulse Resp BP Pulse Ox 97.6 F L 86 17 114/73 94 05/21/17 13:05 05/21/17 15:33 05/21/17 15:33 05/21/17 13:05 05/21/17 15:33 Oxygen Flow Rate 2 Oxygen Delivery Method Room Air Weight: 246 lb 0.574 oz Body Mass Index (BMI) 45.0 Finger Stick Blood Glucose 120 Laboratory Tests Past 24 Hrs Assessment/Plan Active and Suspected Problems Atypical right-sided chest pain (Acute) The patient is a 61 year old F with history of COPD, hypertension and diabetes mellitus type 2 as mentioned above came to ER with right-sided chest pain, constant for last 2 days. Chest pain gets exacerbated on exertion, on walking, localized, right subclavicular region without radiation associated with mild shortness of breath. Patient denies near syncope or syncope. The pain is nonreproducible Patient has a chronic history of seizure disorder and migraine. [] In ED, her basic blood work was unremarkable except mild leukocytosis 11.3 thousand. EKG shows normal sinus rhythm at [address]-T abnormalities with no change from previous EKG of April 2016 shows normal sinus rhythm at 93 bpm. 1. Atypical right-sided chest pain: Patient is being admitted to the monitored bed. On ACS protocol with serial cardiac enzymes, aspirin, statin and nitro sublingual as needed. Lexiscan stress test tomorrow morning. FLP tomorrow morning 2. COPD: Currently stable. No exacerbation. Patient has history of smoking 2 packs per days, started in her 30s. Currently uses vaporized cigarettes. On albuterol as needed and Advair. 3. Diabetes mellitus type 2: Accu-Chek before meals and at bedtime and cover with NovoLog sliding scale. A1c tomorrow morning. 4. Hypertension: On lisinopril 5 mg daily. Neurological conditions: Seizure disorder/epilepsy, migraine headache and anxiety and depression: Patient is on multiple antipsychotic medications including haloperidol, Geodon, Rizatriptan, Topamax and Effexor. Home medication meds reconciliation done. DVT prophylaxis: On Lovenox 40 mg subcut daily and bilateral SCDs. This note was generated with [employer] dictation software. Every effort was made to ensure accuracy, however computerized denture contour wire specialist mistakes may persist. Code Visit OBSV E AND M: 13934 Initial observation care L3 05/22/17 1304 <Electronically signed by Fabrizio Mendez MD> Date Fabrizio Mendez MD Cosigner Signature: Date (if applicable) CC: Wallace Fair DO; Fabrizio Mendez MD Signed STRESS REPORT Observed: 05/22/2017 Status: F Source: [place] 12:51 PM [facility] REPOSITORY [facility] Cardiovascular Services [address] [place] [address] MR#: [id number] Acct: [id number] Name: AFSANEH LOWE Rep #: [id number] : 1955 61 From: Andrzej Asencio MD Primary Care: Wallace Fair DO Status: ADM [facility] Ordering Dr: Sex: F C Stress Test Report Pharmacologic myocardial perfusion stress test Thtka-puaa-ihk lady with a history of chest pain. Stress protocol: Resting EKG demonstrates normal sinus rhythm with a rate of 68 bpm normal intervals and noted resting blood pressure is 108/70 mmHg. 0.4 mg regadenoson was infused per usual protocol followed by rapid intravenous saline flush injection. Continuous EKG monitoring was performed. At rest there were no ST or T-wave changes noted suggest abnormal flow reserve at peak infusion no ST or T-wave changes were noted suggest abnormal flow reserve. The maximum heart rate was 113 bpm which was 70% of the maximum predicted heart rate. The maximum workload attained was 1 metabolic equivalent. Myocardial perfusion protocol. 14.1 mCi of technetium 99m sestamibi was injected at rest. 0.4 mg of regadenoson was infused per usual protocol. At peak infusion 43.9 mCi of technetium 99m sestamibi was injected. Stress images were obtained. Stress and rest images were reconstructed and compared in the short axis vertical long and horizontal long axis. Gated images were also obtained. Perfusion SPECT analysis: Review of the images demonstrate normal uptake of tracer noted in all areas of the myocardium. The resting images similarly demonstrate normal uptake of tracer noted in all areas of the myocardium. No areas of reversibility are noted suggest ischemia. No previous infarct is noted. Next Gated SPECT analysis The gated ejection fraction is noted to be 84%. Conclusion: Normal pharmacologic myocardial perfusion stress test. Preserved ejection fraction. 05/22/17 1251 <Electronically signed by Andrzej Asencio MD> Date Andrzej Asencio MD CC: Wallace Fair DO Date Dictated: 05/22/17 1247 Date Transcribed: 05/22/17 1247 Boning Room Worker: CO Signed BEDSIDE GLUCOSE Collected: 05/22/2017 Status: F Source: [place] 11:21 AM [facility] REPOSITORY TYPE CODE TESTS RESULT OUT OF RANGE REFERENCE UNITS LAB L501.080 70-110 mg/dL Normal BEDSIDE GLU 108 Result Comment: MANAGEMENT OF PATIENT CARE PER NURSING PROTOCOL Performed By: #### L501.080 #### [place] [facility] Laboratory Point of Care [address] [place] [address] BEDSIDE GLUCOSE Collected: 05/22/2017 Status: F Source: [place] 6:26 AM [facility] REPOSITORY TYPE CODE TESTS RESULT OUT OF RANGE REFERENCE UNITS LAB L501.080 70-110 mg/dL Normal BEDSIDE GLU 102 Result Comment: MANAGEMENT OF PATIENT CARE PER NURSING PROTOCOL Performed By: #### L501.080 #### [facility] Laboratory Point of Care [address] [place], [place] [address] HEMOGLOBIN A1C Collected: 05/22/2017 Status: F Source: [place] 5:55 AM [facility] REPOSITORY TYPE CODE TESTS RESULT OUT OF RANGE REFERENCE UNITS LAB L501.9985 4.2-6.3 % Normal HGB A1C 5.2 Performed By: #### L501.9985 #### [facility] [address], [address] TROPONIN-I Collected: 05/22/2017 Status: F Source: [place] 4:19 AM [facility] REPOSITORY Order Comment: 'TROP' Serial specimen #1, #2, #3, or #4: 4 TYPE CODE TESTS RESULT OUT OF RANGE REFERENCE UNITS LAB L501.4010 <0.06 ng/mL Normal < 0.02 TROPONIN-I Result Comment: TROPONIN-I EXPECTED VALUES <0.05 NEGATIVE 0.06 - 0.59 AT RISK OF ND > OR = 0.60 SUGGEST ND Performed By: #### L501.4010 #### [facility] [address] [place], [place], [address] BASIC METABOLIC Collected: 05/22/2017 Status: F Source: [place] PROFILE (BMP) 4:10 AM [facility] REPOSITORY TYPE CODE TESTS RESULT OUT OF RANGE REFERENCE UNITS LAB L501.0100 70-110 mg/dL Normal GLU 92 LAB L501.1000 7-18 mg/dL Normal BUN 13 LAB L501.1100 0.55-1.02 mg/dL Low 0.45 CREAT,SERUM Result Comment: The validity of the calculated GFR AND GFRAA in patients over 70 years has not been determined. Clinical correlation is essential. LAB L501.1110 >60 mL/min Normal EST GFR 152 Result Comment: Non- GFR Calc LAB L501.1115 >60 mL/min Normal EST GFR - AA 184 Result Comment: GFR Calc LAB L501.1255 ml/min Normal Estimated CRCL 100.32 LAB L501.1300 10-20 RATIO High BUN/CRE 29.1 LAB L501.2200 8.5-10 mg/dL Low .1 CA 8.3 LAB L501.5300 136-14 mmol/L 5 NA Normal 139 LAB L501.5600 3.5-5. mmol/L 1 K Normal 3.9 Result Comment: Slight Hemolysis, Result may be falsely increased. LAB L501.5900 98-107 mmol/L Normal CL 105 LAB L501.6100 21.0-32.0 mmol/L Normal CO2 26.0 LAB L501.6200 5-15 Normal 8 GAP Performed By: #### L500.2500, L500.4100, L501.9520 #### [facility] [address] [facility]. [place], [place], [id number] LIPID PROFILE Collected: 05/22/2017 Status: F Source: URBANA 4:10 AM [facility] REPOSITORY TYPE CODE TESTS RESULT OUT OF RANGE REFERENCE UNITS LAB L501.4900 200 mg/dL Normal CHOL 139 Result Comment: <200 mg/dL Desirable 200-240 mg/dL Borderline >240 mg/dL High Risk LAB L501.5000 mg/dL Normal TRIG 112 Result Comment: The drugs N-Acetylcysteine and Metamizole may falsely depress this assay. Serum Triglycerides Reference Interval Normal <150 mg/dL Borderline high 150 - 199 mg/dL High 200 - 499 mg/dL Very High > or = 500 mg/dL LAB L501.6400 mg/dL Normal HDL 47 Result Comment: The drugs N-Acetylcysteine and Metamizole may falsely depress this assay. Reference Range HDL <40 mg/dL Low HDL Cholesterol HDL >or= 60 mg/dL High HDL Cholesterol LAB L501.6500 0-130 mg/dL Normal LDL 70 LAB L501.6600 5-40 mg/dL Normal VLDL 22 Performed By: #### L500.2500, L500.4100, L501.9520 #### [facility] [address] [place], [place], [id number] THYROID STIM HORMONE Collected: 05/22/2017 Status: F Source: ERNA (TSH) 4:10 AM [facility] REPOSITORY TYPE CODE TESTS RESULT OUT OF RANGE REFERENCE UNITS LAB L501.9520 0.358-3.74 uIU/mL Normal TSH 2.11 Performed By: #### L500.2500, L500.4100, L501.9520 #### [facility] [address] [place], [place], [id number] CBC W/DIFF, AUTOMATED Collected: 05/22/2017 Status: F Source: E[place] 4:00 AM [facility] REPOSITORY TYPE CODE TESTS RESULT OUT OF RANGE REFERENCE UNITS LAB L100.1000 4.4-11.0 K/mm3 Normal WBC 9.0 LAB L100.1200 4.2-5.4 M/mm3 Low RBC 3.82 LAB L100.1300 12.0-15.0 g/dl Normal HGB 12.4 LAB L100.1400 37-47 % Normal HCT 38.2 LAB L100.1500 81-99 fL High MCV 100.0 LAB L100.1600 27.0-32.0 pg High MCH 32.5 LAB L100.1700 32-36 g/gl Normal MCHC 32.5 LAB L100.1810 11.6-14.6 % Normal RDW CV 13.2 LAB L100.1820 35.1-43.9 fl High RDW SD 47.9 LAB L100.1900 150-450 K/mm3 Normal PLT 247 LAB L100.2000 6.2-12.0 fl Normal MPV 10.4 LAB L100.2100 47-70 % Normal NEUT% 52.0 LAB L100.2200 19-41 % Normal LY% 32.1 LAB L100.2300 0-10 % High MONO% 11.2 LAB L100.2400 0-5 % Normal EO% 3.9 LAB L100.2500 0-1 % Normal BASO% 0.7 LAB L100.2550 0.0-0.9 % Normal IM GRAN % 0.100 Result Comment: IG% - Immature Granulocytes (promyelocytes, myelocytes and metamyelocytes) > 1% indicates that a LEFT SHIFT is Present. LAB L100.2620 2.0-7.7 X10 3/uL Normal Absolute Neut 4.7 LAB L100.2720 0.83-4.51 X10 3/ul Normal Absolute Lymph 2.89 Performed By: #### L100.0100 #### [facility] [address] [place], [place], [address] PROTHROMBIN TIME W/INR Collected: 05/22/2017 Status: F Source: URBANA 4:00 AM [facility] REPOSITORY TYPE CODE TESTS RESULT OUT OF RANGE REFERENCE UNITS LAB L300.4150 11.7-14.9 SECONDS Normal PROTIME 13.8 LAB L300.4200 Normal INR 1.1 Performed By: #### L300.3900, L300.4310 #### [facility] [address] [place], [address] PARTIAL THROMBOPLAST Collected: 05/22/2017 Status: F Source: URBANA TIME 4:00 AM [facility] REPOSITORY TYPE CODE TESTS RESULT OUT OF RANGE REFERENCE UNITS LAB L300.4310 24.1-36.2 Seconds Normal PTT 31.4 Performed By: #### L300.3900, L300.4310 #### [facility] [address] [place], [address] TROPONIN-I Collected: 05/21/2017 Status: F Source: URBA[place] 10:35 PM [facility] REPOSITORY Order Comment: 'TROP' Serial specimen #1, #2, #3, or #4: 3 TYPE CODE TESTS RESULT OUT OF RANGE REFERENCE UNITS LAB L501.4010 <0.06 ng/mL Normal < 0.02 TROPONIN-I Result Comment: TROPONIN-I EXPECTED VALUES <0.05 NEGATIVE 0.06 - 0.59 AT RISK OF ND > OR = 0.60 SUGGEST ND Performed By: #### L501.4010 #### [facility] [address] [place], [address] BEDSIDE GLUCOSE Collected: 05/21/2017 Status: F Source: [place] 9:29 PM [facility] REPOSITORY TYPE CODE TESTS RESULT OUT OF RANGE REFERENCE UNITS LAB L501.080 70-110 mg/dL Normal BEDSIDE GLU 89 Result Comment: MANAGEMENT OF PATIENT CARE PER NURSING PROTOCOL Performed By: #### L501.080 #### [facility] Point of Care [address] [place] [address] EMERGENCY DEPARTMENT Observed: 05/21/2017 Status: F Source: [place] SUMMARY 5:49 PM [facility] REPOSITORY [facility] Medical Records Department [address] [place] [address] Emergency Department Summary 05/21/17 1409 MR#: [id number] Acct: [id number] Name: AFSANEH LOWE Rep #: [id number] : 1955 61 From: Georges Rangel MD PCP: Wallace Fair DO Status: ADM [facility] - ER Visit Summary Date of Service: 05/21/17 Chief Complaint: Right-sided chest pain History of Present Illness: The patient is a 61 F reportedly no prior history of cardiac disease of the mitral valve prolapse. She does have COPD, jpd-ilradhg-klrnqkcmp diabetes and hypertension. Patient states last 2 days consultations and right-sided chest pain. At times made worse with walking. Associated dyspnea and nausea. Not specifically pleuritic. No hemoptysis. No history of DVT or PE. No recent travel, surgery or mobilization. Physical Examination: Well-appearing middle-age female. Vital signs are stable afebrile. Pulse ox 90% room air no signs of hypoxia. H EENT exam unremarkable neck nontender no JVD. Lungs clear to auscultation bilaterally. Heart regular in rhythm no murmur. She does have some chest wall tenderness was not specifically exactly the same as she is describing her pain. There is no ecchymosis or bruising no signs of trauma. Abdomen morbidly obese and soft nontender no peritoneal signs. He is moving all 4 extremities. Calves nontender without edema. Neurologically she is awake alert without focal motor deficits. Test Results: CBC is unremarkable white count 11.3. BMP normal. With a normal gap and creatinine. Troponin normal. D-dimer normal. Chest x-ray shows no acute process read by myself the radiologist. EKG is a sinus rhythm or rate 85 with no acute abnormality. Repeat exam the patient is doing well at 1538 and is pain-free. Emergency Department Course and Treatment: Patient with atypical chest pain but definitely has risk factors given her age prior smoking history and body habitus. Treatment Plan: Given the patient's risk factors and age and no recent cardiac workup or prior heart cath I do think she warrants admission. I very spoken to Dr. Mendez the hospitalist will be down to evaluate the patient for admission. Disposition: Admission Impression: Acute atypical chest pain of uncertain etiology Nml-asxvsez-iikblllrq diabetes, hypertension and COPD This note was generated with [employer] dictation software. It may contain incorrect words, spelling, and punctuation that were not noted in review of the chart prior to signing ED Disposition - Plan for ED Patient: Chief Complaint: Chest Pain Referrals: Wallace Fair, DO [Primary Care Provider] - What to do if you have Problems For any increased pain, shortness of breath, bleeding, nausea or vomiting, chest pain, or any unexpected problems, contact your Primary Care Provider. Call [facility] ([phone]) or report to the closest Emergency Room. Call 911 if necessary. 05/21/17 1749 <Electronically signed by Georges Rangel MD> Date Georges Rangel MD Cosigner Signature (If Indicated): Date CC: Wallace Fair DO BEDSIDE GLUCOSE Collected: 05/21/2017 Status: F Source: ERNA 4:50 PM [facility] REPOSITORY TYPE CODE TESTS RESULT OUT OF RANGE REFERENCE UNITS LAB L501.080 70-110 mg/dL Normal BEDSIDE GLU 106 Result Comment: MANAGEMENT OF PATIENT CARE PER NURSING PROTOCOL Performed By: #### L501.080 #### [facility] Point of Care [address] [place], [place] [address] CBC W/DIFF, AUTOMATED Collected: 05/21/2017 Status: F Source: ERNA 2:19 PM [facility] REPOSITORY TYPE CODE TESTS RESULT OUT OF RANGE REFERENCE UNITS LAB L100.1000 4.4-11.0 K/mm3 High WBC 11.3 LAB L100.1200 4.2-5.4 M/mm3 Low RBC 3.76 LAB L100.1300 12.0-15.0 g/dl Normal HGB 12.6 LAB L100.1400 37-47 % Normal HCT 37.8 LAB L100.1500 81-99 fL High MCV 100.5 LAB L100.1600 27.0-32.0 pg High MCH 33.5 LAB L100.1700 32-36 g/gl Normal MCHC 33.3 LAB L100.1810 11.6-14.6 % Normal RDW CV 13.0 LAB L100.1820 35.1-43.9 fl High RDW SD 46.8 LAB L100.1900 150-450 K/mm3 Normal PLT 245 LAB L100.2000 6.2-12.0 fl Normal MPV 10.5 LAB L100.2100 47-70 % Normal NEUT% 52.0 LAB L100.2200 19-41 % Normal LY% 31.6 LAB L100.2300 0-10 % High MONO% 11.1 LAB L100.2400 0-5 % Normal EO% 4.3 LAB L100.2500 0-1 % Normal BASO% 0.8 LAB L100.2550 0.0-0.9 % Normal IM GRAN % 0.200 Result Comment: IG% - Immature Granulocytes (promyelocytes, myelocytes and metamyelocytes) > 1% indicates that a LEFT SHIFT is Present. LAB L100.2620 2.0-7.7 X10 3/uL Normal Absolute Neut 5.9 LAB L100.2720 0.83-4.51 X10 3/ul Normal Absolute Lymph 3.56 Performed By: #### L100.0100 #### [facility] [address] [place], [address] D-DIMER QUANTITATIVE Collected: 05/21/2017 Status: F Source: URBANA (DVT/PE) 2:19 PM [facility] REPOSITORY TYPE CODE TESTS RESULT OUT OF RANGE REFERENCE UNITS LAB L300.8000 0.27-0.49 FEU/ug/m Low D-DIMER < 0.27 QUANT Result Comment: NORMAL D-Dimer level (<0.50) indicates no DVT or PE. Performed By: #### L300.8000 #### [facility] [address] [facility] [place], [place], [id number] BASIC METABOLIC Collected: 05/21/2017 Status: F Source: ERNA PROFILE (BMP) 2:19 PM [facility] REPOSITORY Order Comment: 'TROP' Serial specimen #1, #2, #3, or #4: 1 TYPE CODE TESTS RESULT OUT OF RANGE REFERENCE UNITS LAB L501.0100 70-110 mg/dL Normal GLU 91 LAB L501.1000 7-18 mg/dL High BUN 20 LAB L501.1100 0.55-1.02 mg/dL Normal 0.60 CREAT,SERUM Result Comment: The validity of the calculated GFR AND GFRAA in patients over 70 years has not been determined. Clinical correlation is essential. LAB L501.1110 >60 mL/min Normal EST GFR 107 Result Comment: Non- GFR Calc LAB L501.1115 >60 mL/min Normal EST GFR - AA 130 Result Comment: GFR Calc LAB L501.1255 ml/min Normal Estimated CRCL 78.86 LAB L501.1300 10-20 RATIO High BUN/CRE 33.1 LAB L501.2200 8.5-10 mg/dL Normal .1 CA 8.7 LAB L501.5300 136-14 mmol/L Normal 5 NA 139 LAB L501.5600 3.5-5. mmol/L Normal 1 K 4.0 LAB L501.5900 98-107 mmol/L Normal CL 102 LAB L501.6100 21.0-3 mmol/L Normal 2.0 CO2 30.0 LAB L501.6200 5-15 Normal GAP 7 Performed By: #### L500.2500, L501.4010 #### [facility] [address] [place], [place], [address] TROPONIN-I Collected: 05/21/2017 Status: F Source: ERNA 2:19 PM [facility] REPOSITORY Order Comment: 'TROP' Serial specimen #1, #2, #3, or #4: 1 TYPE CODE TESTS RESULT OUT OF RANGE REFERENCE UNITS LAB L501.4010 <0.06 ng/mL Normal < 0.02 TROPONIN-I Result Comment: TROPONIN-I EXPECTED VALUES <0.05 NEGATIVE 0.06 - 0.59 AT RISK OF ND > OR = 0.60 SUGGEST ND Performed By: #### L500.2500, L501.4010 #### [facility] [address] [place], [address] MAGNESIUM Collected: 05/21/2017 Status: F Source: ERNA 2:19 PM [facility] REPOSITORY TYPE CODE TESTS RESULT OUT OF RANGE REFERENCE UNITS LAB L501.5200 1.6-2.6 mg/dL Normal MG 2.0 Result Comment: Please note revised Magnesium reference range effective 2017. Performed By: #### L501.5200 #### [facility] [address] [place], [address] BNP,B-TYPE NATRIURETIC Collected: 05/21/2017 Status: F Source: URBANA PEPTIDE 2:19 PM [facility] REPOSITORY TYPE CODE TESTS RESULT OUT OF RANGE REFERENCE UNITS LAB L503.6620 0-100 pg/mL Normal B-TYPE 2.7 ANNA PEP Performed By: #### L503.6620 #### [facility] [address] [place], [address] CHEST 1 VIEW Observed: 05/21/2017 Status: F Source: ERNA (PORTABLE) 2:01 PM [facility] REPOSITORY [facility] Imaging Services [address] [place] [address] Chest 1 View (Portable) MR#: [id number] Acct: [id number] Name: AFSANEH LOWE Rep #: [id number] : 1955 F 61 From: Raoul Cobian MD PCP: Wallace Fair DO Status: REG ER Study: Chest 1 View (Portable) Date of Exam: 05/21/17 Exam# [id number] Ordering Dr: Georges Rangel MD STUDY: X-RAY CHEST REASON FOR EXAM: Female, 61 years old. Chest pain and shortness of breath. TECHNIQUE: Single AP portable view of the chest. COMPARISON: Comparison is made with prior study dated May 29, 2016. FINDINGS: EKG electrodes are seen. The lungs are clear and expanded. There is no demonstrated pleural abnormality. There is mild cardiac enlargement. Normal mediastinum and ita. Normal visualized pulmonary arteries. There is atherosclerotic tortuosity of the aortic arch and descending thoracic aorta. Normal visualized thoracic spine. Normal visualized ribs, clavicles, and shoulders. There is no demonstrated abnormality of the visualized soft tissue structures of the upper abdomen. RAD/Chest 1 View (Portable) IMPRESSION: Mild cardiomegaly. The lungs are clear. Electronically Signed: Raoul Cobian MD at 14:39 EST Tel [phone], Service support , CC: Georges Rangel MD; Wallace Fair DO Boning Room Worker: Signed EMERGENCY DEPARTMENT Observed: 05/17/2017 Status: F Source: URBANA SUMMARY 1:12 AM [facility] Medical Records Department [facility] [place] [address] Emergency Department Summary 05/16/170 MR#: [id number] Acct: [id number] Name: AFSANEH LOWE Rep #: [id number] : 1955 61 From: Viviane Mai MD PCP: Wallace Fair DO Status: DEP ER - ER Visit Summary Date of Service: 05/16/17 Chief Complaint: [] Fell hit head taking off nightgown History of Present Illness: The patient is a 61 F [] alone at home is on as needed Ativan and Hartsfield for different pains and anxiety. She states she was trying to take her nightgown off pulling off her head she inadvertently hit her head against the wall, her dog Barking so the neighbors called the paramedics they found her in bed and she was brought to the hospital, no LOC no nausea vomiting no change in vision no change in functional status she absolutely insists she was not ill in any way this was an accident related to her taking off her night gown. Addition she indicates she is taking the Ativan and Hartsfield as prescribed and she does not believe those medications played a role in her hitting her head she lives alone at home she is not on any blood thinners Physical Examination: [] She is awake she has an obvious contusion to the right forehead pupils are equal round reactive neck is supple lungs are clear nontender neck heart tones unremarkable abdomen soft nontender she is moving all 4 extremities to command she seems slightly sleepy she Marhta denies any complaints there is no pain to full range of motion of her extremities and her back is negative her NIH is 0 Test Results: [] Emergency Department Course and Treatment: [] Questioned her whether she is overly sedated from the above medication she adamantly denies that she indicates is really nothing wrong with her was a neighbor who called the paramedics, we will obtain CT of her head and observe her she really does not want anything else done Head CT is negative for all. The patient remains awake alert but sleepy she indicates there is no one that can come get her she usually goes home to She is comfortably discharged home in a cab, I explained her that given the use of the Hartsfield and the Ativan I do not feel comfortable discharge her in a, she wants to go home, she will be discharged by paramedics and again I have cautioned her and recommend that she stop using the Ativan and Hartsfield was given head injury instructions Treatment Plan: [] Disposition: [] Home stable Impression: [] Hit wall right head injury, concern for overmedication with Ativan Hartsfield This note was generated with [employer] dictation software. It may contain incorrect words, spelling, and punctuation that were not noted in review of the chart prior to signing ED Disposition - Plan for ED Patient: Chief Complaint: Fall Referrals: Wallace Fair, DO [Primary Care Provider] - What to do if you have Problems For any increased pain, shortness of breath, bleeding, nausea or vomiting, chest pain, or any unexpected problems, contact your Primary Care Provider. Call [facility] ([phone]) or report to the closest Emergency Room. Call 911 if necessary. 05/17/17 0112 <Electronically signed by Viviane Mai MD> Date Viviane Mai MD Cosigner Signature (If Indicated): Date CC: Wallace Fair DO DISCHARGE INSTRUCTION Observed: 05/16/2017 Status: F Source: ERNA 10:26 PM [facility] REPOSITORY [facility] Medical Records Department [address] [place] [address] Discharge Instruction 05/16/172225 MR#: [id number] Acct: [id number] Name: AFSANEH LOWE Rep #: [id number] : 1955 61 From: Viviane Mai MD PCP: Wallace Fair DO Status: REG ER ED Disposition - Plan for ED Patient: Chief Complaint: Fall Instructions: ED Mechanical Fall, ED Head Injury Closed Referrals: Wallace Fair DO [Primary Care Provider] - Additional Instructions: Stop the Ativan and Hartsfield What to do if you have Problems For any increased pain, shortness of breath, bleeding, nausea or vomiting, chest pain, or any unexpected problems, contact your Primary Care Provider. Call [facility] ([phone]) or report to the closest Emergency Room. Call 911 if necessary. 05/16/172225 <Electronically signed by Viviane Mai MD> Date Viviane Mai MD Cosigner Signature (If Indicated): Date CC: Wallace Fair DO BRAIN/HEAD WITHOUT Observed: 05/16/2017 Status: F Source: ERNA CONTRAST 9:16 PM [facility] REPOSITORY [facility] Imaging Services [address] [place] [address] Brain/Head without Contrast MR#: [id number] Acct: [id number] Name: AFSANEH LOWE Rep #: [id number] : 1955 F 61 From: Michael Giordano MD PCP: Wallace Fair DO Status: REG ER Study: Brain/Head without Contrast Date of Exam: 05/16/17 Exam# [id number] Ordering Dr: Viviane Mai MD STUDY: CT BRAIN WITHOUT CONTRAST REASON FOR EXAM: Female, 61 years old. fall, lac to forehead, alt loc RADIATION DOSAGE (If Supplied By Facility): CTDIvol = ( 44.99 ) mGy, DLP = ( 745.49 ) mGycm TECHNIQUE: Transaxial CT imaging of the brain was performed without administration of intravenous contrast material. Individualized dose optimization techniques were used for this CT. COMPARISON: June 08, 2016 FINDINGS: Soft tissue swelling of the left scalp. There is no underlying fracture. Normal calvarium. Normal size ventricles and extra-axial spaces for the patient's age. Normal white matter tracts of the cerebral hemispheres. Normal basal ganglia and thalami. Normal brainstem. Normal cerebellum. There is no intracranial hemorrhage. There are no findings of an acute ischemic infarction. Normal visualized paranasal sinuses. CT/Brain/Head without Contrast IMPRESSION: Normal unenhanced CT scan of the brain.Soft tissue swelling of the left scalp. There is no underlying fracture. Electronically Signed: Michael Giordano MD at 21:46 EST , Service support , CC: MD Kartik Mai; Wallace Fair DO Boning Room Worker: Signed HEMOGLOBIN A1C Collected: 05/14/2017 Status: F Source: [place] 4:02 PM [facility] REPOSIT[facility] TYPE CODE TESTS RESULT OUT OF REFERENCE UNITS RANGE LAB HGBA1C 4.3-5.6 % Hemoglobin A1c 5.2 LAB HBA0 mg/dL Est. Average Glucose 103 Result Comment: eAG: (Estimated average glucose) is a calculated value from HgbA1c and is technology sales representative of the average blood glucose level in the last 2-3 month period. Performed By: #### HBA1C #### [facility] [address] [place], [place] [address] PROGRESS Observed: 05/14/2017 Status: COMPLETED Source: [place] 3:43 PM [facility] REPOSITORY HNO ID: [id number] Author: Lucy Sutherland (Pharmacist) Service: (none) Author Type: Pharmacist Type: Progress Notes Filed: 05/15/2017 7:24 AM Note Text: PharmD saw patient today. Consult to pharmacist pended for PCP signature. Lucy Sutherland PharmD, BCPS PROGRESS Observed: 05/14/2017 Status: COMPLETED Source: [place] 3:00 PM [facility] REPOSITORY HNO ID: [id number] Author: Lucy Sutherland (Pharmacist) Service: (none) Author Type: Pharmacist Type: Progress Notes Filed: 05/15/2017 1:57 PM Note Text: Patient consents to pharmacy collaborative practice agreement. REASON FOR CONSULT: DM GOALS: A1c < 7% CONSULTING PROVIDER: Dr. Fair Date of Consult: 04/2017 Afsaneh Lowe is a 61 year old female was last seen in [facility] by PCP, Dr. Fair on 07/11/16. Also saw Angie Stephens CNP on 03/07/17 Patient is presenting today for initial pharmacotherapy management appointment for DM. At last provider visit patient expressed that her caregivers thought her BG's were falling too low. INTERIM HISTORY: Patient presents with Scott Patient does not answer most questions fully, her head is bent forward and down most of the visit Looked up a few times to answer questions, did not appear to be very engaged in today's visit Denied being fatigued... Says she is feeling fine Denies any questions or concerns at this time. Is unsure why she has a pharmacist appointment. Reports sugars have been fine, denies lows or highs Current DM Medications: Metformin 500mg BID Current HTN Medications: Lisinopril 5mg once daily ? Patient denies CP, SOB, AUGUSTIN, blurred vision, dizziness or lightheadedness ? Patient denies symptoms of hypoglycemia (sweating, anxiety, palpitations, hunger, and tremor) ? Patient denies symptoms of hyperglycemia (polyuria, polydipsia, polyphagia) ? Patient denies potential medication adverse effects DIET/EXERCISE/SOCIAL Hx: Friend at home, she does all of the cooking 3 meals daily ? Beverages: regular pop sometimes ? Exercise: no ? Tobacco: yes, 1/2 ppd, not interested in quitting ? Alcohol: denies ? Illicits: denies MEDICATIONS: ? Pill bottles are not present. ? Adherence: denies missed doses. ? Pharmacy: [facility] ? Rx coverage: Medicare D ? Affordability: no issues ? Diabetes supplies: ? 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) Osteoarthritis, Multiple Sites Shoulder Pain Chronic Knee Pain S/P Tkr (Total Knee Replacement) Calculus of Gallbladder With Chronic Cholecystitis Without Obstruction Umbilical Hernia Without Obstruction Or Gangrene Family History of Ischemic Heart Disease Opioid Abuse Restrictive Lung Disease Auditory Hallucination 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) Chronic Right Shoulder Pain Balance Disorder Use of Cane As Ambulatory Aid Impaired Vision PAST MEDICAL HISTORY Diagnosis Date - Abdominal pain, other specified site chronic - Arthritis - Asthma - Asthmatic bronchitis - Atypical chest pain - Auditory hallucinations 12/19/2014 [facility] - see scanned documents - Back pain - Benign neoplasm of colon - Blepharospasm - Bronchitis - Carpal tunnel syndrome of left wrist 04/06/2015 mild, nerve conduction study - CHF (congestive heart failure) ([facility]) - Constipation - COPD (chronic obstructive pulmonary disease) ([facility]) - Coronary disease - Degenerative arthritis of knee bilateral - Depression - Diarrhea - Epilepsy ([facility]) - Fibromyalgia - Hemorrhoids - Hypertension - IDDM (insulin dependent diabetes mellitus) ([facility]) - Intoxication with opioids ([facility]) + urine tox - Kidney stones - Kidney stones - Migraine - Mitral valve disorders - Narcotic abuse NO NARCOTICS, see OARRS, multiple providers - Obesity - Osteoporosis - Pneumonia - Renal failure - Restrictive lung disease 02/2015 - Right shoulder injury - Schizo affective schizophrenia ([facility]) Dr. Mcdonnell Psychiatrist - Seizures ([facility]) Pt. uses medical alert dog - Sleep disorder - Stroke ([facility]) - Suicidal ideations 12/19/2014 [facility] - see scanned documents - UTI (urinary tract infection) ALLERGIES Allergen Reactions - Bee Sting Anaphylaxis - Betadine [Povidone-* Unknown - Imitrex [Sumatripta* Vomiting - Tape [Adhesive Tape* Other: See Comments Patients states paper tape makes her blister Current Outpatient Prescriptions: metFORMIN (GLUCOPHAGE) 500 mg tablet Take 1 tablet by mouth twice daily with meals. haloperidol (HALDOL) 5 mg tablet 8 tablets three times daily. phenytoin ER (DILANTIN) 100 mg ER capsule Takes 2 capsules 3 times per day pravastatin (PRAVACHOL) 80 mg tablet TAKE 1 TABLET BY MOUTH AT BEDTIME topiramate (TOPAMAX) 50 mg tablet Take 1 tablet by mouth twice daily. venlafaxine ER (EFFEXOR XR) 75 mg 24 hr capsule Take 2 capsules by mouth once daily. lisinopril (PRINIVIL) 5 mg tablet Take 1 tablet by mouth once daily. HYDROcodone-Acetaminophen (NORCO) 7.5-325 mg per tablet Take by mouth three times daily as needed. aspirin, enteric coated (ADULT LOW DOSE ASPIRIN) 81 mg EC tablet Take 1 tablet by mouth once daily. clonazePAM (KLONOPIN) 1 mg tablet Take 1 tablet by mouth three times daily as needed. ziprasidone (GEODON) 80 mg capsule Take 1 capsule by mouth twice daily. takes 1 in the am and 1 at bedtime. OYSTER SHELL CALCIUM-VITAMIN D 500 mg(1,250mg) -200 unit per tablet TAKE 1 TABLET BY MOUTH DAILY blood sugar diagnostic (BLOOD GLUCOSE TEST) test strip Test blood sugar(s) 4 times daily. Dx: Type 2 DM - Controlled E11.9 Insulin: No lancets (ONE TOUCH DELICA) 33 gauge misc Test blood sugars four times daily. E11.9. No insulin nut.tx.gluc intol,lf,soy-fiber (BOOST GLUCOSE CONTROL) 0.06-1.1 gram-kcal/mL liqd Take 1 Each by mouth once daily. Nebulizer Accessories kit Dispense new tubing, medication chamber and mouth pieces for use with Nebulizer. ICD10 code oxybutynin ER (DITROPAN XL) 10 mg 24 hr tablet Take 1 tablet by mouth once daily. albuterol (PROVENTIL) 2.5 mg /3 mL (0.083 %) nebulizer solution Use 3 mL via nebulizer every 4 hours as needed for Wheezing/Shortness of Breath. Use over 5-15minutes. DX:asthmatic bronchitis J 45.909 EPINEPHrine (EPIPEN, AUVI-Q) 0.3 mg/0.3 mL auto-injector as needed for allergic anaphylaxis COMPOUNDED PRESCRIPTION LIFT MECHANISM FOR LIFT CHAIR DX R26.89 M15.9 COMPOUNDED PRESCRIPTION RAISED TOILET SEAT WITH ARMS DX R26.89 M15.9 olopatadine (PATANOL) 0.1 % ophthalmic solution USE 1 DROP IN BOTH EYES TWICE DAILY. COMPOUNDED PRESCRIPTION Dispense wheeled walker with seat magnesium oxide (MAG-OX) 400 mg tablet Take 1 tablet by mouth every morning. PROAIR HFA 90 mcg/actuation inhaler INHALE 2 PUFFS BY MOUTH EVERY 6 HOURS NEEDED nitroglycerin sublingual (NITROQUICK) 0.4 mg SL tablet Dissolve 1 tablet under the tongue every 5 minutes as needed for Chest Pain. ALCOHOL PREP PADS padm USE TWICE DAILY COMPOUNDED PRESCRIPTION High Back Shower Chair that holds 300 lb plus. Stroke (HCC) (I63.9) rizatriptan (MAXALT) 10 mg tablet Take 10 mg by mouth as needed (one as neede for headache). May repeat in 2 hours if needed benzonatate (TESSALON PERLE) 100 mg capsule Take 2 capsules by mouth three times daily as needed. Compression Knee Highs KNEE HIGH COMPRESSION STOCKINGS 20- 30 MM. DX: EDEMA guaiFENesin (MUCINEX) 600 mg 12 hr tablet Take 2 tablets by mouth twice daily. COMPOUNDED PRESCRIPTION Diabetic booster2 cases per month. Dx is mupirocin (BACTROBAN) 2 % ointment Apply 1 application to affected area three times daily. COMPOUNDED PRESCRIPTION 1 Device as needed. NEBULIZER FOR HOME USE. DX: Restrictive lung disease, COPD COMPOUNDED PRESCRIPTION Registered Nurse services in home 1 hour weekly COMPOUNDED PRESCRIPTION Nurses Aid in home care, 33 hours weekly Blood-Glucose Meter monitoring kit Glucose Meter of Choice - Kit - Dx: Type 2 DM - Controlled E11.9, Use as directed, test once a day and PRN silver sulfADIAZINE (SILVADENE,THERMAZENE) 1 % cream Apply 1 application to affected area twice daily. No current facility-administered medications for this visit. Rx meds not listed in EPIC: none OTCs: none Herbals: none GLYCEMIC CONTROL: ? Glucometer present at visit: no ? SMBG?s: Date Fasting AM 2 hr PP Before Lunch 2 hr PP Before Dinner 2 hr PP Bedtime 05/14 126 05/13 128 124 05/12 132 147 05/11 136 164 05/10 128 163 05/09 104 172 05/08 122 103 05/07 189 163 05/06 107 193 05/05 104 178 05/04 106 ? Hypoglycemia: no ? On PIETRO/ARB: Yes ? On Statin: Yes ? On ASA: Yes Last 3 Encounter BP Readings: Date: BP: 03/07/2017 100/62 02/18/2017 107/67 02/05/2017 104/60 Wt: 106.1 kg (234 lb) BMI: 42.80 kg/(m2) LABS Lab Results Component Value Date HBA1C 5.2 07/14/2016 HBA1C 5.9 04/05/2016 HBA1C 6.0 08/30/2015 CMP: Glucose 105 07/14/2016 BUN 18 07/14/2016 Creatinine 0.67 07/14/2016 Sodium 139 07/14/2016 Potassium 3.8 07/14/2016 Chloride 106 07/14/2016 CO2 30 07/14/2016 Protein, Total 6.3 07/14/2016 Albumin 3.1 07/14/2016 Calcium 8.3 07/14/2016 Alkaline Phosphatase 77 07/14/2016 Bilirubin, Total 0.2 07/14/2016 AST 10 07/14/2016 ALT 13 07/14/2016 Estimated CrCL > 100 mL/min (calculated using Ht 62, adjusted Wt 72.5 kg, sCr 0.67 mg/dL, using [place] Gault) Last Lipid Panel Lab Results Component Value Date CHOL 142 04/05/2016 Lab Results Component Value Date HDL 48 04/05/2016 Lab Results Component Value Date LDL 69 04/05/2016 Lab Results Component Value Date TG 123 04/05/2016 Albumin/Creat Ratio (mg/g) Date Value 04/05/2016 <11 PHARMACOTHERAPY ASSESSMENT/PLAN: 1. Controlled type 2 diabetes mellitus without complication, unspecified jail insulin use status (HCC) - ICD9: 250.00, ICD10: E11.9 (primary diagnosis) A1c goal < 7%, patient is at goal (5.2% on 07/14/16). Due for repeat. SMBGs at goal with no instances of hypoglycemia. tolerating and compliant with metformin monotherapy. Appropriate to continue current regimen at this time. Dicussed treatment of hypoglycemia if it occurs and Rule of 15. Discussed drinking diet pop instead of regular. Renal fxn and LFTs WNL ? CONTINUE metformin 500mg BID ? Instructed patient to continue checking BGs twice daily ? Eye exam: 08/01/16 ? Foot exam: 02/24/15, likely due - HGB A1C 2. Essential hypertension - ICD9: 401.9, ICD10: I10 BP goal < 81212, pt is at goal on current therapy. Will continue. Renal fxn and K+ WNL. ? CONTINUE lisinopril 5mg once daily 3. Hyperlipidemia, unspecified hyperlipidemia type - ICD9: 272.4, ICD10: E78.5 Pt is taking moderate statin intensity (indicated for high intensity d/t DM and ASCVD risk score 9.1%). Did not discuss change at this visit. Continue current therapy at this time and continue to monitor. LFTs and renal fxn WNL. ? CONTINUE pravastatin 80mg once daily 4. Tobacco Use Patient is at Pre-Contemplative Stage of smoking cessation ? Discussed health benefits of quitting smoking, at least cutting down Patient is scheduled to see PCP 06/18/17. Patient to return to clinic for PharmD f/u as needed or requested by PCP. Patient verbalized understanding of instructions. Lucy Sutherland, PharmD, BCPS CNOV Observed: 05/14/2017 Status: COMPLETED Source: [place] 3:00 PM [facility] REPOSITORY Office Visit ([facility]) AFSANEH LOWE ([id number]) 1955 F BLD Date Time Provider Department 05/14/17 3:00 PM [facility] (PHARMACIST)LUCY During your visit today, we recorded the following information about you: MONA MEHTA 05/15/2017 1:57 PM Signed Patient consents to pharmacy collaborative practice agreement. REASON FOR CONSULT: DM GOALS: A1c ANDlt; 7% CONSULTING PROVIDER: Dr. Fair Date of Consult: 04/2017 Afsaneh Lowe is a 61 year old female was last seen in [facility] by PCP, Dr. Fair on 07/11/16. Also saw Angie Stephens CNP on 03/07/17 Patient is presenting today for initial pharmacotherapy management appointment for DM. At last provider visit patient expressed that her caregivers thought her BG's were falling too low. INTERIM HISTORY: Patient presents with Scott Patient does not answer most questions fully, her head is bent forward and down most of the visit Looked up a few times to answer questions, did not appear to be very engaged in today's visit Denied being fatigued... Says she is feeling fine Denies any questions or concerns at this time. Is unsure why she has a pharmacist appointment. Reports sugars have been fine, denies lows or highs Current DM Medications: Metformin 500mg BID Current HTN Medications: Lisinopril 5mg once daily ? Patient denies CP, SOB, AUGUST[place], blurred vision, dizziness or lightheadedness ? Patient denies symptoms of hypoglycemia (sweating, anxiety, palpitations, hunger, and tremor) ? Patient denies symptoms of hyperglycemia (polyuria, polydipsia, polyphagia) ? Patient denies potential medication adverse effects DIET/EXERCISE/SOCIAL Hx: Friend at home, she does all of the cooking 3 meals daily ? Beverages: regular pop sometimes ? Exercise: no ? Tobacco: yes, 1/2 ppd, not interested in quitting ? Alcohol: denies ? Illicits: denies MEDICATIONS: ? Pill bottles are not present. ? Adherence: denies missed doses. ? [facility]acy: [facility] ? Rx coverage: Medicare D ? Affordability: no issues ? Diabetes supplies: ? 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) Chronic Right Shoulder Pain Balance Disorder Use of Cane As Ambulatory Aid Impaired Vision PAST MEDICAL HISTORY Diagnosis Date - Abdominal pain, other specified site chronic - Arthritis - Asthma - Asthmatic bronchitis - Atypical chest pain - Auditory hallucinations 12/19/2014 [facility] - see scanned documents - Back pain - Benign neoplasm of colon - Blepharospasm - Bronchitis - Carpal tunnel syndrome of left wrist 04/06/2015 mild, nerve conduction study - CHF (congestive heart failure) ([facility]) - Constipation - COPD (chronic obstructive pulmonary disease) ([facility]) - Coronary disease - Degenerative arthritis of knee bilateral - Depression - Diarrhea - Epilepsy ([facility]) - Fibromyalgia - Hemorrhoids - Hypertension - IDDM (insulin dependent diabetes mellitus) ([facility]) - Intoxication with opioids ([facility]) + urine tox - Kidney stones - Kidney stones - Migraine - Mitral valve disorders - Narcotic abuse NO NARCOTICS, see OARRS, multiple providers - Obesity - Osteoporosis - Pneumonia - Renal failure - Restrictive lung disease 02/2015 - Right shoulder injury - Schizo affective schizophrenia ([facility]) Dr. Mcdonnell Psychiatrist - Seizures ([facility]) Pt. uses medical alert dog - Sleep disorder - Stroke ([facility]) - Suicidal ideations 12/19/2014 [facility] - see scanned documents - UTI (urinary tract infection) ALLERGIES Allergen Reactions - Bee Sting Anaphylaxis - Betadine [Povidone-* Unknown - Imitrex [Sumatripta* Vomiting - Tape [Adhesive Tape* Other: See Comments Patients states paper tape makes her blister Current Outpatient Prescriptions: metFORMIN (GLUCOPHAGE) 500 mg tablet Take 1 tablet by mouth twice daily with meals. haloperidol (HALDOL) 5 mg tablet 8 tablets three times daily. phenytoin ER (DILANTIN) 100 mg ER capsule Takes 2 capsules 3 times per day pravastatin (PRAVACHOL) 80 mg tablet TAKE 1 TABLET BY MOUTH AT BEDTIME topiramate (TOPAMAX) 50 mg tablet Take 1 tablet by mouth twice daily. venlafaxine ER (EFFEXOR XR) 75 mg 24 hr capsule Take 2 capsules by mouth once daily. lisinopril (PRINIVIL) 5 mg tablet Take 1 tablet by mouth once daily. HYDROcodone-Acetaminophen (NORCO) 7.5-325 mg per tablet Take by mouth three times daily as needed. aspirin, enteric coated (ADULT LOW DOSE ASPIRIN) 81 mg EC tablet Take 1 tablet by mouth once daily. clonazePAM (KLONOPIN) 1 mg tablet Take 1 tablet by mouth three times daily as needed. ziprasidone (GEODON) 80 mg capsule Take 1 capsule by mouth twice daily. takes 1 in the am and 1 at bedtime. OYSTER SHELL CALCIUM-VITAMIN D 500 mg(1,250mg) -200 unit per tablet TAKE 1 TABLET BY MOUTH DAILY blood sugar diagnostic (BLOOD GLUCOSE TEST) test strip Test blood sugar(s) 4 times daily. Dx: Type 2 DM - Controlled E11.9 Insulin: No lancets (ONE TOUCH DELICA) 33 gauge misc Test blood sugars four times daily. E11.9. No insulin nut.tx.gluc intol,lf,soy-fiber (BOOST GLUCOSE CONTROL) 0.06- 1.1 gram-kcal/mL liqd Take 1 Each by mouth once daily. Nebulizer Accessories kit Dispense new tubing, medication chamber and mouth pieces for use with Nebulizer. ICD10 code oxybutynin ER (DITROPAN XL) 10 mg 24 hr tablet Take 1 tablet by mouth once daily. albuterol (PROVENTIL) 2.5 mg /3 mL (0.083 %) nebulizer solution Use 3 mL via nebulizer every 4 hours as needed for Wheezing/Shortness of Breath. Use over 5-15minutes. DX:asthmatic bronchitis J 45.909 EPINEPHrine (EPIPEN, AUVI-Q) 0.3 mg/0.3 mL auto-injector as needed for allergic anaphylaxis COMPOUNDED PRESCRIPTION LIFT MECHANISM FOR LIFT CHAIR DX R26.89 M15.9 COMPOUNDED PRESCRIPTION RAISED TOILET SEAT WITH ARMS DX R26.89 M15.9 olopatadine (PATANOL) 0.1 % ophthalmic solution USE 1 DROP IN BOTH EYES TWICE DAILY. COMPOUNDED PRESCRIPTION Dispense wheeled walker with seat magnesium oxide (MAG-OX) 400 mg tablet Take 1 tablet by mouth every morning. PROAIR HFA 90 mcg/actuation inhaler INHALE 2 PUFFS BY MOUTH EVERY 6 HOURS NEEDED nitroglycerin sublingual (NITROQUICK) 0.4 mg SL tablet Dissolve 1 tablet under the tongue every 5 minutes as needed for Chest Pain. ALCOHOL PREP PADS padm USE TWICE DAILY COMPOUNDED PRESCRIPTION High Back Shower Chair that holds 300 lb plus. Stroke (HCC) (I63.9) rizatriptan (MAXALT) 10 mg tablet Take 10 mg by mouth as needed (one as neede for headache). May repeat in 2 hours if needed benzonatate (TESSALON PERLE) 100 mg capsule Take 2 capsules by mouth three times daily as needed. Compression Knee Highs KNEE HIGH COMPRESSION STOCKINGS 20- 30 MM. DX: EDEMA guaiFENesin (MUCINEX) 600 mg 12 hr tablet Take 2 tablets by mouth twice daily. COMPOUNDED PRESCRIPTION Diabetic booster2 cases per month. Dx is mupirocin (BACTROBAN) 2 % ointment Apply 1 application to affected area three times daily. COMPOUNDED PRESCRIPTION 1 Device as needed. NEBULIZER FOR HOME USE. DX: Restrictive lung disease, COPD COMPOUNDED PRESCRIPTION Registered Nurse services in home 1 hour weekly COMPOUNDED PRESCRIPTION Nurses Aid in home care, 33 hours weekly Blood-Glucose Meter monitoring kit Glucose Meter of Choice - Kit - Dx: Type 2 DM - Controlled E11.9, Use as directed, test once a day and PRN silver sulfADIAZINE (SILVADENE,THERMAZENE) 1 % cream Apply 1 application to affected area twice daily. No current facility-administered medications for this visit. Rx meds not listed in EPIC: none OTCs: none Herbals: none GLYCEMIC CONTROL: ? Glucometer present at visit: no ? SMBG?s: Date Fasting AM 2 hr PP Before Lunch 2 hr PP Before Dinner 2 hr PP Bedtime 05/14 126 15 128 124 14 132 147 05/11 136 164 05/10 128 163 05/09 104 172 05/08 122 103 05/07 189 163 05/06 107 193 05/05 104 178 /6 106 ? Hypoglycemia: no ? On PIETRO/ARB: Yes ? On Statin: Yes ? On ASA: Yes Last 3 Encounter BP Readings: Date: BP: 03/07/2017 100/62 02/18/2017 107/67 02/05/2017 104/60 Wt: 106.1 kg (234 lb) BMI: 42.80 kg/(m2) LABS Lab Results Component Value Date HBA1C 5.2 07/14/2016 HBA1C 5.9 04/05/2016 HBA1C 6.0 08/30/2015 CMP: Glucose 105 07/14/2016 BUN 18 07/14/2016 Creatinine 0.67 07/14/2016 Sodium 139 07/14/2016 Potassium 3.8 07/14/2016 Chloride 106 07/14/2016 CO2 30 07/14/2016 Protein, Total 6.3 07/14/2016 Albumin 3.1 07/14/2016 Calcium 8.3 07/14/2016 Alkaline Phosphatase 77 07/14/2016 Bilirubin, Total 0.2 07/14/2016 AST 10 07/14/2016 ALT 13 07/14/2016 Estimated CrCL ANDgt; 100 mL/min (calculated using Ht 62ANDquot;, adjusted Wt 72.5 kg, sCr 0.67 mg/dL, using [place] Gault) Last Lipid Panel Lab Results Component Value Date CHOL 142 04/05/2016 Lab Results Component Value Date HDL 48 04/05/2016 Lab Results Component Value Date LDL 69 04/05/2016 Lab Results Component Value Date TG 123 04/05/2016 Albumin/Creat Ratio (mg/g) Date Value 04/05/2016 ANDlt;11 PHARMACOTHERAPY ASSESSMENT/PLAN: 1. 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 Due for repeat. SMBGs at goal with no instances of hypoglycemia. tolerating and compliant with metformin monotherapy. Appropriate to continue current regimen at this time. Dicussed treatment of hypoglycemia if it occurs and Rule of 15. Discussed drinking diet pop instead of regular. Renal fxn and LFTs WNL ? CONTINUE metformin 500mg BID ? Instructed patient to continue checking BGs twice daily ? Eye exam: 08/01/16 ? Foot exam: 02/24/15, likely due - HGB A1C 2. Essential hypertension - ICD9: 401.9, ICD10: I10 BP goal ANDlt; 64457, pt is at goal on current therapy. Will continue. Renal fxn and K+ WNL. ? CONTINUE lisinopril 5mg once daily 3. Hyperlipidemia, unspecified hyperlipidemia type - ICD9: 272.4, ICD10: E78.5 Pt is taking moderate statin intensity (indicated for high intensity d/t DM and ASCVD risk score 9.1%). Did not discuss change at this visit. Continue current therapy at this time and continue to monitor. LFTs and renal fxn WNL. ? CONTINUE pravastatin 80mg once daily 4. Tobacco Use Patient is at Pre-Contemplative Stage of smoking cessation ? Discussed health benefits of quitting smoking, at least cutting down Patient is scheduled to see PCP 06/18/17. Patient to return to clinic for PharmD f/u as needed or requested by PCP. Patient verbalized understanding of instructions. Lucy Sutherland, PedroD, BCPS Referring Provider: WALLACE FAIR [[id number]] Allergies As of Date: 05/14/2017 Noted Allergy Reaction BEE STING 10/10/2012 10 - Anaphylaxis BETADINE (POVIDONE-IODINE) 12/17/2013 16 - Unknown IMITREX (SUMATRIPTAN SUCCINATE) 12/17/2005 11 - Vomiting TAPE (ADHESIVE TAPE (ROSINS)) 09/25/2012 14 - Other: See Comments Comments: Patients states paper tape makes her blister Date Reviewed: 03/07/2017 Reviewed by: Angie Reeves (Hand Tacker) MARLEY Stephens - Fully Assessed Reason for Visit: Allied Health Visit [5] Cmt: DM initial Primary Visit Diagnosis:Controlled type 2 diabetes mellitus without complication, unspecified jail insulin use status (HCC) [E11.9] Other Visit Diagnoses:Essential hypertension [I10] Hyperlipidemia, unspecified hyperlipidemia type [E78.5] Medication management [Z79.899] Order(s):HGB A1C [[id number]] Order #: [id number] FUTURE Prescriptions as of 05/14/2017 Sig: METFORMIN 500 MG TABLET Take 1 tablet by mouth twice * HALOPERIDOL 5 MG TABLET 8 tablets three times daily. PHENYTOIN SODIUM EXTENDED 100* Takes 2 capsules 3 times per * PRAVASTATIN 80 MG TABLET TAKE 1 TABLET BY MOUTH AT BED* TOPIRAMATE 50 MG TABLET Take 1 tablet by mouth twice * VENLAFAXINE ER 75 MG CAPSULE,* Take 2 capsules by mouth once* LISINOPRIL 5 MG TABLET Take 1 tablet by mouth once d* HYDROCODONE 7.5 MG-ACETAMINOP* Take by mouth three times da* ASPIRIN 81 MG TABLET,DELAYED * Take 1 tablet by mouth once d* CLONAZEPAM 1 MG TABLET Take 1 tablet by mouth three * * ZIPRASIDONE 80 MG CAPSULE Take 1 capsule by mouth twice* OYSTER SHELL CALCIUM-VITAMIN * TAKE 1 TABLET BY MOUTH DAILY BLOOD SUGAR DIAGNOSTIC STRIPS Test blood sugar(s) 4 times d* LANCETS 33 GAUGE Test blood sugars four times * NUTRITION TX GLU INTOL,LAC-FR* Take 1 Each by mouth once qiana* NEBULIZER ACCESSORIES KIT Dispense new tubing, medicati* OXYBUTYNIN CHLORIDE ER 10 MG * Take 1 tablet by mouth once d* ALBUTEROL SULFATE 2.5 MG/3 ML* Use 3 mL via nebulizer every * EPINEPHRINE 0.3 MG/0.3 ML INJ* as needed for allergic anaphy* COMPOUNDED PRESCRIPTION LIFT MECHANISM FOR LIFT CHAIR* COMPOUNDED PRESCRIPTION RAISED TOILET SEAT WITH ARMS * OLOPATADINE 0.1 % EYE DROPS USE 1 DROP IN BOTH EYES TWICE* COMPOUNDED PRESCRIPTION Dispense wheeled walker with * MAGNESIUM OXIDE 400 MG TABLET Take 1 tablet by mouth every * PROAIR HFA 90 MCG/ACTUATION A* INHALE 2 PUFFS BY MOUTH EVERY* NITROGLYCERIN 0.4 MG SUBLINGU* Dissolve 1 tablet under the t* ALCOHOL PREP PADS USE TWICE DAILY COMPOUNDED PRESCRIPTION High Back Shower Chair that h* RIZATRIPTAN 10 MG TABLET Take 10 mg by mouth as needed* BENZONATATE 100 MG CAPSULE Take 2 capsules by mouth thre* COMPOUNDED PRESCRIPTION KNEE HIGH COMPRESSION STOCKIN* GUAIFENESIN ER 600 MG TABLET,* Take 2 tablets by mouth twice* COMPOUNDED PRESCRIPTION Diabetic booster 2 cases per* MUPIROCIN 2 % TOPICAL OINTMENT Apply 1 application to affect* COMPOUNDED PRESCRIPTION 1 Device as needed. NEBULIZER* COMPOUNDED PRESCRIPTION Registered Nurse services in * COMPOUNDED PRESCRIPTION Nurses Aid in home care, 33 h* BLOOD-GLUCOSE METER KIT Glucose Meter of Choice - Kit* SILVER SULFADIAZINE 1 % TOPIC* Apply 1 application to affect* Problem List As Of Date 05/14/2017 Noted Resolved MITRAL VALVE DISORDER [I05.9] DIARRHEA NOS [R19.7] INVALID FOR* Benign neoplasm of colon [D12.6] INVALID FOR* Benign neoplasm of rectum and anal canal [D12.8*INVALID FOR* GERD (gastroesophageal reflux disease) [K21.9] INVALID FOR* Hiatal hernia [K44.9] INVALID FOR* Right rotator cuff tear [M75.101] INVALID FOR* Paranoid schizophrenia (HCC) [F20.0] INVALID FOR* Blepharospasm [G24.5] INVALID FOR* Hypertension [I10] INVALID FOR* Hyperlipidemia [E78.5] INVALID FOR* Intractable migraine without aura [G43.019] INVALID FOR*03/13/2016 Intractable migraine with aura [G43.119] INVALID FOR* 8.2.3 Analgesic overuse headache [F55.2] [339.3*INVALID FOR* Constipation [K59.00] Abdominal pain, other specified site [R10.9] Kidney stones [N20.0] Diabetes mellitus type 2, controlled, without c*INVALID FOR* Osteoarthritis, multiple sites [M15.9] INVALID FOR* Shoulder pain [M25.519] INVALID FOR* Chronic knee pain [M25.569, G89.29] INVALID FOR* S/P TKR (total knee replacement) [Z96.659] INVALID FOR* Calculus of gallbladder with chronic cholecysti*INVALID FOR* Umbilical hernia without obstruction or gangren*INVALID FOR* Family history of ischemic heart disease [Z82.4*INVALID FOR* Opioid abuse [F11.10] INVALID FOR* More... 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] INVALID FOR* Chronic right shoulder pain [M25.511, G89.29] INVALID FOR* Balance disorder [R26.89] INVALID FOR* Use of cane as ambulatory aid [R26.2] INVALID FOR* Impaired vision [H54.7] INVALID FOR* Follow-up and Disposition History Recorded Encounter Status:Closed by KOKO (PHARMACIST)LUCY on 05/15/17 KEATONON Observed: 05/14/2017 Status: COMPLETED Source: AMAYA 12:00 AM [facility] REPOSITORY Consults (FAMPWS) AFSANEH LOWE ([id number]) 1955 F BLD Date Time Provider Department 05/14/17 WALLACE FAIR FAMPWS During your visit today, we recorded the following information about you: LUCY SUTHERLAND, PHARMACIST 05/15/2017 7:24 AM Signed PharmD saw patient today. Consult to pharmacist pended for PCP signature. Lucy Sutherland, PharmD, [facility] Allergies As of Date: 05/14/2017 Noted Allergy Reaction BEE STING 10/10/2012 10 - Anaphylaxis BETADINE (POVIDONE-IODINE) 12/17/2013 16 - Unknown IMITREX (SUMATRIPTAN SUCCINATE) 12/17/2005 11 - Vomiting TAPE (ADHESIVE TAPE (ROSINS)) 09/25/2012 14 - Other: See Comments Comments: Patients states paper tape makes her blister Date Reviewed: 03/07/2017 Reviewed by: Angie Reeves ([facility]) MARLEY Stephens - Fully Assessed Primary Visit Diagnosis:Controlled type 2 diabetes mellitus without complication, without long-term current use of insulin (HCC) [E11.9] Order(s):CONSULT TO PHARMACY [393975] Order #: [id number]: 1 Prescriptions as of 05/14/2017 Sig: OYSTER SHELL CALCIUM-VITAMIN * TAKE 1 TABLET BY MOUTH DAILY BLOOD SUGAR DIAGNOSTIC STRIPS Test blood sugar(s) 4 times d* LANCETS 33 GAUGE Test blood sugars four times * NUTRITION TX GLU INTOL,LAC-FR* Take 1 Each by mouth once qiana* NEBULIZER ACCESSORIES KIT Dispense new tubing, medicati* OXYBUTYNIN CHLORIDE ER 10 MG * Take 1 tablet by mouth once d* ALBUTEROL SULFATE 2.5 MG/3 ML* Use 3 mL via nebulizer every * EPINEPHRINE 0.3 MG/0.3 ML INJ* as needed for allergic anaphy* METFORMIN 500 MG TABLET Take 1 tablet by mouth twice * COMPOUNDED PRESCRIPTION LIFT MECHANISM FOR LIFT CHAIR* COMPOUNDED PRESCRIPTION RAISED TOILET SEAT WITH ARMS * OLOPATADINE 0.1 % EYE DROPS USE 1 DROP IN BOTH EYES TWICE* COMPOUNDED PRESCRIPTION Dispense wheeled walker with * HALOPERIDOL 5 MG TABLET 8 tablets three times daily. PHENYTOIN SODIUM EXTENDED 100* Takes 2 capsules 3 times per * MAGNESIUM OXIDE 400 MG TABLET Take 1 tablet by mouth every * PRAVASTATIN 80 MG TABLET TAKE 1 TABLET BY MOUTH AT BED* PROAIR HFA 90 MCG/ACTUATION A* INHALE 2 PUFFS BY MOUTH EVERY* TOPIRAMATE 50 MG TABLET Take 1 tablet by mouth twice * NITROGLYCERIN 0.4 MG SUBLINGU* Dissolve 1 tablet under the t* VENLAFAXINE ER 75 MG CAPSULE,* Take 2 capsules by mouth once* LISINOPRIL 5 MG TABLET Take 1 tablet by mouth once d* ALCOHOL PREP PADS USE TWICE DAILY COMPOUNDED PRESCRIPTION High Back Shower Chair that h* RIZATRIPTAN 10 MG TABLET Take 10 mg by mouth as needed* HYDROCODONE 7.5 MG-ACETAMINOP* Take by mouth three times da* BENZONATATE 100 MG CAPSULE Take 2 capsules by mouth thre* COMPOUNDED PRESCRIPTION KNEE HIGH COMPRESSION STOCKIN* GUAIFENESIN ER 600 MG TABLET,* Take 2 tablets by mouth twice* COMPOUNDED PRESCRIPTION Diabetic booster 2 cases per* MUPIROCIN 2 % TOPICAL OINTMENT Apply 1 application to affect* COMPOUNDED PRESCRIPTION 1 Device as needed. NEBULIZER* COMPOUNDED PRESCRIPTION Registered Nurse services in * COMPOUNDED PRESCRIPTION Nurses Aid in home care, 33 h* BLOOD-GLUCOSE METER KIT Glucose Meter of Choice - Kit* ASPIRIN 81 MG TABLET,DELAYED * Take 1 tablet by mouth once d* SILVER SULFADIAZINE 1 % TOPIC* Apply 1 application to affect* CLONAZEPAM 1 MG TABLET Take 1 tablet by mouth three * * ZIPRASIDONE 80 MG CAPSULE Take 1 capsule by mouth twice* Problem List As Of Date 05/14/2017 Noted Resolved MITRAL VALVE DISORDER [I05.9] DIARRHEA NOS [R19.7] INVALID FOR* Benign neoplasm of colon [D12.6] INVALID FOR* Benign neoplasm of rectum and anal canal [D12.8*INVALID FOR* GERD (gastroesophageal reflux disease) [K21.9] INVALID FOR* Hiatal hernia [K44.9] INVALID FOR* Right rotator cuff tear [M75.101] INVALID FOR* Paranoid schizophrenia (HCC) [F20.0] INVALID FOR* Blepharospasm [G24.5] INVALID FOR* Hypertension [I10] INVALID FOR* Hyperlipidemia [E78.5] INVALID FOR* Intractable migraine without aura [G43.019] INVALID FOR*03/13/2016 Intractable migraine with aura [G43.119] INVALID FOR* 8.2.3 Analgesic overuse headache [F55.2] [339.3*INVALID FOR* Constipation [K59.00] Abdominal pain, other specified site [R10.9] Kidney stones [N20.0] Diabetes mellitus type 2, controlled, without c*INVALID FOR* Osteoarthritis, multiple sites [M15.9] INVALID FOR* Shoulder pain [M25.519] INVALID FOR* Chronic knee pain [M25.569, G89.29] INVALID FOR* S/P TKR (total knee replacement) [Z96.659] INVALID FOR* Calculus of gallbladder with chronic cholecysti*INVALID FOR* Umbilical hernia without obstruction or gangren*INVALID FOR* Family history of ischemic heart disease [Z82.4*INVALID FOR* Opioid abuse [F11.10] INVALID FOR* More... 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] INVALID FOR* Chronic right shoulder pain [M25.511, G89.29] INVALID FOR* Balance disorder [R26.89] INVALID FOR* Use of cane as ambulatory aid [R26.2] INVALID FOR* Impaired vision [H54.7] INVALID FOR* Follow-up and Disposition History Recorded Encounter Status:Closed by WALLACE FAIR DO on 05/15/17 OBSOLETE Observed: 05/09/2017 Status: COMPLETED Source: CASSIDY 12:00 AM [facility] REPOSITORY Refill (FAMPWS) AFSANEH LOWE ([id number]) 1955 F BLD Date Time Provider Department 05/09/17 [facility] During your visit today, we recorded the following information about you: Alisa Lala Spears Cma 05/09/2017 3:19 PM Signed Patient has been identified by name and date of : Yes Pending Prescriptions Disp Refills OYSTER SHELL CALCIUM-VITAMIN D3 500 MG (1,250 MG)-200 UNIT TABLET 24 tablet Sig: TAKE 1 TABLET BY MOUTH DAILY NEREIDA: Yes RX INSTRUCTIONS: Patient aware RX will be sent to pharmacy. No need to notify patient. Last visit 03/07/17 Alisa L Scheitler Wire [employer] Cloth Allergies As of Date: 05/09/2017 Noted Allergy Reaction BEE STING 10/10/2012 10 - Anaphylaxis BETADINE (POVIDONE-IODINE) 12/17/2013 16 - Unknown IMITREX (SUMATRIPTAN SUCCINATE) 12/17/2005 11 - Vomiting TAPE (ADHESIVE TAPE (ROSINS)) 09/25/2012 14 - Other: See Comments Comments: Patients states paper tape makes her blister Date Reviewed: 03/07/2017 Reviewed by: Angie Reeves ([facility]) MARLEY Stephens - Fully Assessed Reason for Visit: Refill Request [94] Order(s):OYSTER SHELL CALCIUM-VITAMIN D 500 mg(1,250mg) -200 unit per tabletTAKE 1 TABLET BY MOUTH DAILYDisp: 24 tabletRfl: 5 Prescriptions as of 05/09/2017 Sig: OYSTER SHELL CALCIUM-VITAMIN * TAKE 1 TABLET BY MOUTH DAILY BLOOD SUGAR DIAGNOSTIC STRIPS Test blood sugar(s) 4 times d* LANCETS 33 GAUGE Test blood sugars four times * NUTRITION TX GLU INTOL,LAC-FR* Take 1 Each by mouth once qiana* NEBULIZER ACCESSORIES KIT Dispense new tubing, medicati* OXYBUTYNIN CHLORIDE ER 10 MG * Take 1 tablet by mouth once d* ALBUTEROL SULFATE 2.5 MG/3 ML* Use 3 mL via nebulizer every * EPINEPHRINE 0.3 MG/0.3 ML INJ* as needed for allergic anaphy* METFORMIN 500 MG TABLET Take 1 tablet by mouth twice * COMPOUNDED PRESCRIPTION LIFT MECHANISM FOR LIFT CHAIR* COMPOUNDED PRESCRIPTION RAISED TOILET SEAT WITH ARMS * OLOPATADINE 0.1 % EYE DROPS USE 1 DROP IN BOTH EYES TWICE* COMPOUNDED PRESCRIPTION Dispense wheeled walker with * HALOPERIDOL 5 MG TABLET 8 tablets three times daily. PHENYTOIN SODIUM EXTENDED 100* Takes 2 capsules 3 times per * MAGNESIUM OXIDE 400 MG TABLET Take 1 tablet by mouth every * PRAVASTATIN 80 MG TABLET TAKE 1 TABLET BY MOUTH AT BED* PROAIR HFA 90 MCG/ACTUATION A* INHALE 2 PUFFS BY MOUTH EVERY* TOPIRAMATE 50 MG TABLET Take 1 tablet by mouth twice * NITROGLYCERIN 0.4 MG SUBLINGU* Dissolve 1 tablet under the t* VENLAFAXINE ER 75 MG CAPSULE,* Take 2 capsules by mouth once* LISINOPRIL 5 MG TABLET Take 1 tablet by mouth once d* ALCOHOL PREP PADS USE TWICE DAILY COMPOUNDED PRESCRIPTION High Back Shower Chair that h* [facility] 10 MG TABLET Take 10 mg by mouth as needed* HYDROCODONE 7.5 MG-ACETAMINOP* Take by mouth three times da* BENZONATATE 100 MG CAPSULE Take 2 capsules by mouth thre* COMPOUNDED PRESCRIPTION KNEE HIGH COMPRESSION STOCKIN* GUAIFENESIN ER 600 MG TABLET,* Take 2 tablets by mouth twice* COMPOUNDED PRESCRIPTION Diabetic booster 2 cases per* MUPIROCIN 2 % TOPICAL OINTMENT Apply 1 application to affect* COMPOUNDED PRESCRIPTION 1 Device as needed. NEBULIZER* COMPOUNDED PRESCRIPTION Registered Nurse services in * COMPOUNDED PRESCRIPTION Nurses Aid in home care, 33 h* BLOOD-GLUCOSE METER KIT Glucose Meter of Choice - Kit* ASPIRIN 81 MG TABLET,DELAYED * Take 1 tablet by mouth once d* SILVER SULFADIAZINE 1 % TOPIC* Apply 1 application to affect* CLONAZEPAM 1 MG TABLET Take 1 tablet by mouth three * * ZIPRASIDONE 80 MG CAPSULE Take 1 capsule by mouth twice* Problem List As Of Date 05/09/2017 Noted Resolved MITRAL VALVE DISORDER [I05.9] DIARRHEA NOS [R19.7] INVALID FOR* Benign neoplasm of colon [D12.6] INVALID FOR* Benign neoplasm of rectum and anal canal [D12.8*INVALID FOR* GERD (gastroesophageal reflux disease) [K21.9] INVALID FOR* Hiatal hernia [K44.9] INVALID FOR* Right rotator cuff tear [M75.101] INVALID FOR* Paranoid schizophrenia (HCC) [F20.0] INVALID FOR* Blepharospasm [G24.5] INVALID FOR* Hypertension [I10] INVALID FOR* Hyperlipidemia [E78.5] INVALID FOR* Intractable migraine without aura [G43.019] INVALID FOR*03/13/2016 Intractable migraine with aura [G43.119] INVALID FOR* 8.2.3 Analgesic overuse headache [F55.2] [339.3*INVALID FOR* Constipation [K59.00] Abdominal pain, other specified site [R10.9] Kidney stones [N20.0] Diabetes mellitus type 2, controlled, without c*INVALID FOR* Osteoarthritis, multiple sites [M15.9] INVALID FOR* Shoulder pain [M25.519] INVALID FOR* Chronic knee pain [M25.569, G89.29] INVALID FOR* S/P TKR (total knee replacement) [Z96.659] INVALID FOR* Calculus of gallbladder with chronic cholecysti*INVALID FOR* Umbilical hernia without obstruction or gangren*INVALID FOR* Family history of ischemic heart disease [Z82.4*INVALID FOR* Opioid abuse [F11.10] INVALID FOR* More... 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] INVALID FOR* Chronic right shoulder pain [M25.511, G89.29] INVALID FOR* Balance disorder [R26.89] INVALID FOR* Use of cane as ambulatory aid [R26.2] INVALID FOR* Impaired vision [H54.7] INVALID FOR* Prescriptions ordered this encounter Disp Refills Start End OYSTER SHELL CALCIUM-VITAMIN D3 500 * 24 t* 5 05/09/2017 Cmt: NEW MED STARTED END OF MARCH Sig: TAKE 1 TABLET BY MOUTH DAILY Encounter Status:Closed by ANGIE STEPHENS CNP on 05/09/17 LUMBAR SPINE 2 OR 3 Observed: 05/03/2017 Status: F Source: URBANA VIEWS 4:05 PM [facility] REPOSITORY [facility] Imaging Services [address] [place] [id number] Lumbar Spine 2 or 3 Views MR#: [id number] Acct: [id number] Name: CHRISSYAFSANEH M Rep #: [id number] : 1955 F 61 From: Shania Monsalve MD PCP: Wallace Fair DO Status: [facility] Study: Lumbar Spine 2 or 3 Views Date of Exam: 05/03/17 Exam# [id number] Ordering Dr: Krissy Gillette MD STUDY: X-RAY - LUMBAR SPINE REASON FOR EXAM: Female, 61 years old. Nerve block at L4-S1. TECHNIQUE: 3 fluoroscopic view(s) of the lumbar spine were obtained. 15.9 seconds of fluoroscopy time. COMPARISON: Prior lumbar imaging August 24, 2016 FINDINGS: Fluoroscopic imaging demonstrates needle placement at L3, L4, L5 and S1. RAD/Lumbar Spine 2 or 3 Views IMPRESSION: Fluoroscopic demonstration of needle placement at L3, L4, L5 and S1. Electronically Signed: Shania Monsalve MD at 16:52 EST , Service support , CC: Wallace Fair DO; Krissy Gillette M.D. Boning Room Worker: Signed OPERATIVE REPORT Observed: 05/03/2017 Status: F Source: URBANA 2:42 PM [facility] REPOSITORY [facility] Medical Records Department [address] [place] [address] Operative Report 05/03/17 1438 MR#: [id number] Acct: [id number] Name: AFSANEH LWOE Rep #: [id number] : 1955 61 From: Krissy Gillette MD PCP: Wallace Fair DO Status: REG [facility] Y Location: [place] [address] Problem List (1) Spondylosis of lumbar region without myelopathy or radiculopathy Status: Chronic (2) Spondylosis of lumbar region without myelopathy or radiculopathy Status: Acute Operative Report Date of Procedure: 05/03/17 RIGHT LUMBAR FACETS L3-4, L4-5, L5-S1 MEDIAL NERVE BRANCH INJECTION/ BLOCK UNDER FLUOROSCOPY Under sterile condition, Fluroscopy guidance. Identified the Right L3-4, L4-5, L5-S1 Facets, using 25 g needle to infiltrate the skin with lcoal anethesia Lidocaine 0.5 % 2.5 ml at each site, accessed using 4 22 g Mermentau to the medial nerve branch supplying right L3-4, L4-5, L5-S1 Facet jonits, confirmed with AP, Lateral and oblique fluroscopy approach. Injection of Marcaine 0.5 % 2.5 ml and mixture of Kenalog 10 mg at each level injection. Tolerated procedure well, no complication 05/03/17 1442 <Electronically signed by Krissy Gillette MD> Date Krissy Gillette MD CC: Wallace Fair DO; Krissy Gillette M.D. Signed DISCHARGE INSTRUCTION Observed: 05/03/2017 Status: F Source: ERNA 2:37 PM [facility] REPOSITORY [facility] Medical Records Department [address] [place] [address] Instructions for Home/Discharge Instructions 05/03/17 1437 MR#: [id number] Acct: [id number] Name: AFSANEH LOWE Rep #: [id number] : 1955 61 From: Krissy Gillette MD PCP: Wallace Fair DO Status: REG SDC - Discharge Diagnoses Current Active Problems: Lumbar facets pain You will use the following diet at home:: No restrictions Allergies/Adverse Reactions: Allergies sumatriptan [From Imitrex] Adverse Reaction (Verified 05/01/17 16:10) Vomiting sumatriptan succinate [From Imitrex] Adverse Reaction (Verified 05/01/17 16:10) Vomiting BEE STING Allergy (Uncoded 05/01/17 16:10) Anaphylaxis PAPER TAPE Adverse Reaction (Uncoded 05/01/17 16:10) Rash Medications to take at Discharge Ziprasidone HCl [Geodon] 80 mg PO BID 07/11/13 Venlafaxine HCl [Effexor] 150 mg PO DAILY 10/31/13 Clonazepam 1 mg PO TID 07/12/14 Metformin HCl [Glucophage] 500 mg PO BIDCM 09/07/15 Pravastatin [Pravachol] 80 mg PO QHS 09/07/15 Albuterol Aerosols [Ventolin Aerosols] 2.5 mg INHALATION Q4H PRN PRN 03/11/16 Albuterol IH (ProAir) [Proair Hfa (SP)Vent Pts] 2 puff INHALATION Q6H PRN PRN 03/11/16 Aspirin [Aspirin, Baby] 81 mg PO DAILY@0800 03/11/16 Magnesium Oxide 400 mg PO DAILY 03/11/16 Rizatriptan Benzoate [Rizatriptan] 10 mg PO DAILY PRN PRN 03/11/16 Hydrocodone/Acetaminophen [Hydrocodon-Acetaminophen 5-325] 1 each PO TID 05/29/16 Lisinopril [Prinivil] 5 mg PO DAILY 05/29/16 Meloxicam [Mobic] 7.5 mg PO BID 05/29/16 Methocarbamol 500 mg PO QHS 05/29/16 Topiramate [Topiramate ER] 50 mg PO BID 05/29/16 Primary Care Physician: Wallace Fair DO [Primary Care Provider] - 05/03/17 1437 <Electronically signed by Krissy Gillette MD> Date Krissy Gillette MD CC: Wallace Fair DO BEDSIDE GLUCOSE Collected: 05/03/2017 Status: F Source: URBANA 12:56 PM [facility] REPOSITORY TYPE CODE TESTS RESULT OUT OF RANGE REFERENCE UNITS LAB L501.080 70-110 mg/dL Normal BEDSIDE GLU 107 Result Comment: MANAGEMENT OF PATIENT CARE PER NURSING PROTOCOL Performed By: #### L501.080 #### [facility] Laboratory Point of Care [address] [place] [address] INITAL EVALUATION (1) Observed: 04/25/2017 Status: F Source: URBANA - PT 1:53 PM [facility] REPOSITORY [facility] Physical Therapy [facility] [address] [place] [address]. [address] [place] [address] Fax REHABILITATION SERVICES INITIAL EVALUATION MR#: [id number] Acct: [id number] Name: AFSANEH LOWE Rep #: [id number] : 1955 61 From: Michael Matthew PT, ATC Referring Dr.: Lisa Galvin DO Status: REG RCR Insurance: MEDICARE PART A B [facility] Patient's Visit Information AFSANEH LOWE is a 61 year old F referred to Physical Therapy by Lisa Galvin DO with a diagnosis of R rot cuff tear. Date of Evaluation: 04/25/17 Physical Therapist: Michael Matthew PT, - Visit Plan Frequency: 2-3x /Week Duration: 4-6 Weeks Plan: R shoulder strengthening (rot cuff), scap stab ex's, UBE, and HEP. CP for pain - Subjective Subjective: Pt reports she injured her R shoulder one year ago. Pt reports she was about to fall, and her aid grabbed her by the arm and yanked upward. Pt reports this resulted in immediate pain and discomfort. Pt reports she tried to wait and see if the pain wouold just go away, but it never did. Pt reports she finally went to the Dr. and was ordered to get an MRI which revealed a tear in her rotator cuff. Pt is R hand dom. Pt notes any type of reaching overhead or out to the side causes her pain. Pt is partially blind. Pt reports she has sleep diff secondary to pain. Pt reports she has minor numbness in R UE on the ant portion of her humerus. 8/10 at rest, increases to 10/10 at worst (showering) - Pain R shoulder Pain Intensity (Out of 10): 8 Pain Intensity Range: 10 - Objective Neuro: B UE sensation is WNL to light touch. B bicepital reflex= 1/3. Palpation: Pt is very tender on the post aspect of her R shoulder. No obvious deformity at this time. ROM: L shoulder 5/5 throughout. R shoulder 2/5 and painful. MMT: L shoulder flex= 140, abd= 110, ER= 0, IR WNKL; R shoulder flex= 40, abd= 40, ER= 35, IR severely limited - Goals Goal 1:: Decrease R shoulder pain x 50% to aid with sleep Goal Time Frame: 4-6 Weeks Goal 2:: Increase R shoulder flexion and abd ROM x 40 degrees to aid with overhead lifting Goal Time Frame: 4-6 Weeks Goal 3:: Increase R shoulder strength x 1 grade to aid with IADLs Goal Time Frame: 4-6 Weeks Goal 4:: I with HEP Goal Time Frame: 4-6 Weeks - Rehabilitation Potential Physical Therapy Diagnosis: R shoulder pain, weakness, and limited ROM secondary to a tear of the R rot cuff Rehabilitation Potential: Good - Anticipated Interventions Patient/Client Instruction: Educate patient on: Condition, Plan of Care For the Purpose of:: To improve self management Therapeutic Exercise to Include: Strength training, Endurance training, Postural training, Flexibilty training, Active ROM, Scapular Strength/Stabilization For the Purpose of:: To decrease pain, To increase ROM, To improve muscle performance and motor function Cryotherapy (ice pack, ice massage): Yes For the Purpose of:: To decrease pain Thank you for the opportunity to evaluate your patient. For Medicare and Medicare HMO plans, please review the plan of care and approve it. It will need to be FAXED BACK to us at [phone] for Medicare purposes. Please let me know if there are questions or concerns regarding this plan of care. Physician Signature: Date: <Electronically signed by Michael Matthew PT, ATC> 04/25/17 1353 CC: Lisa Fair DO [facility] Signed For Medicare only, by signing this I certify the plan of care. Physicians Signature Date ALLERGIES ALLERGIES DATE TYPE / CODE NAME / CODE REACTION SEVERITY SOURCE Drug sumatriptan Vomiting Unknown [place] 8 Allergy/106238241( succinate/B09178 [facility] SN[facility]) 4045(RXNORM) Hospital Repository Drug sumatriptan/F006 Vomiting Unknown [place] 8 Allergy/163832867( 828118(RXNORM) [facility] SNOMED CT) Hospital Repository Miscellaneous BEE STING Anaphylaxis Unknown [place] 8 Allergy/179255684( [facility] SNOMED CT) Hospital Repository Miscellaneous PAPER TAPE Rash Unknown Erna 8 Allergy/200288457( [facility] SNOMED CT) Hospital Repository DRUG POVIDONE-IODINE UNKNOWN [place] 4 INGREDI/420828257( Clinic Main SNOMED CT) [place] Repository Environ/363339764( BEE STING ANAPHYLAXIS Amaya [address] [facility] Main [place] Repository Chemical/665142839 ADHESIVE TAPE OTHER: SEE Stone Amaya 3 (SNOMED CT) (ROSINS) [facility] Main [place] Repository DRUG SUMATRIPTAN Vomiting Amaya 6 INGREDI/615204452( [facility] Main SNOMED CT) [place] Repository Drug IMITREX/24393218 Moderate Len Pomerene Allergy/206572554( (RXNORM) ([facility]) Modifier) Hospital (Qualifier Repository Value) Environmental BEE STING Moderate Len Pomerene Allergy/433443269( ([facility]) Modifier) Hospital (Qualifier Repository Value) ENCOUNTERS ENCOUNTERS ADMIT/DISCHARGE ACCOUNT ADMITTING ENCOUNTER LOCATION SOURCE NUMBER CLASS 03/27/2018/03/27/20 [id number] Ambulatory [address] ing:SDCRoom: Repository AC01 03/19/2018/03/19/[id number] Repository 03/19/2018/03/19/[id number] Repository 03/19/2018/03/21/[id number] Repository 03/17/2018/03/17/20 [id number] Emergency [address] ing:ED Repository 02/19/2018/02/21/20 [id number] An[facility] Ambulatory [address] ing:PCURoom: Repository [id number]: 1 02/19/2018 [id number] Anita Keith Ambulatory BMSBuilding:Elsie Umanzor MS.[facility] Repository 02/19/2018 [id number] Anita Keith Ambulatory BMSBuilding:Elsie Umanzor MS.NDP [facility] Repository 02/19/2018/02/21/[id number] Repository 02/07/2018 [id number] [facility] ing:LABSPEC Repository 01/29/2018/01/30/20 [id number] Ambulatory [address] Repository 01/22/2018 [id number] Ambulatory [facility] Repository 01/21/2018/01/23/20 [id number] Ambulatory [address] Repository 01/13/2018/01/14/20 [id number] Emergency [address] ing:ED Repository 01/04/2018/01/05/20 [id number] ALLYSON JOEL Emergency [facility] [place], [place] [address]sarika 18 DO oom: ERBed: A [facility] Repository 12/02/2017/12/03/19 [id number] Emergency [address] ing:ED Repository 11/19/2017 [id number] Ambulatory [facility] ing:LAB Repository 11/07/2017/11/08/19 [id number] ANGELICA Emergency [facility] [place], [place] [address]rere 18 CL ROJAS oom: ERBed: C [facility] Repository 10/21/2017/10/22/19 [id number] Ambulatory [address] Repository 10/03/2017/10/04/19 [id number] Ambulatory [address] Repository 10/03/2017/10/09/19 [id number] Ambulatory [address] Repository 10/01/2017/10/02/[id number] SERA Emergency Build[facility] [place], [place] [address]sarika 18 ARYAN Mayo oom: ERBed: [facility] Repository 09/13/2017/09/14/19 [id number] Ambulatory [address] Repository 09/13/2017/09/17/19 [id number] Ambulatory [address] Repository 09/12/2017/09/13/[id number] DARWIN ANTUNEZ Emergency [facility] [place], [place] [address]sarkia 18 C oom: ERBed: [facility] Repository 08/22/2017 [id number] Ambulatory [facility] Repository 08/22/2017/08/24/19 [id number] Ambulatory [address] Repository 08/19/2017 [id number] Ambulatory [facility] ing:OPBI Repository 08/07/2017 [id number] Ambulatory [facility] ing:RAD Repository 08/02/2017/08/06/19 [id number] Ambulatory [address] Repository 07/16/2017/07/18/19 [id number] Ambulatory [address] Repository 06/19/2017 [id number] Ambulatory [facility] ing:SL Repository 05/31/2017/05/31/19 [id number] Ambulatory [address] Repository 05/24/2017 [id number] Ambulatory [facility] ing:BI Repository 05/22/2017/05/22/19 [id number] Ambulatory BMSBuilding:W [place] [facility] Repository 05/21/2017/05/22/19 [id number] [facility], Ambulatory Erna Erna[address] ing:PCURoom: Repository [id number]: 1 05/21/2017 [id number] [facility], Ambulatory BMSBuilding:[facility] MS.[facility] Repository 05/21/2017/05/22/19 [id number] Ambulatory BMSBuilding:W Hensley [facility] Repository 05/16/2017/05/16/19 [id number] Emergency [address] ing:ED Repository 05/14/2017 [id number] Ambulatory [facility] Repository 05/14/2017/05/14/19 [id number] Ambulatory [address] Repository 05/03/2017/05/03/19 [id number] Ambulatory [address] ing:SDCRoom: Repository AC10 04/25/2017/04/25/20 [id number] Ambulatory [address] ing:PT Repository PAYERS PAYERS ENCOUNTER GUARANTOR PAYER SUBSCRIBER SOURCE 03/27/2018 AFSANEH Montgomery Primary AFSANEH DINH E Insurance:[facility]IC[facility]: [facility] PART A BPolicy Number: [id number] [id number] Repository 33702Klj: 330) Date:2018-03-18 [phone] () 03/27/2018 Secondary AFSANEH Umanzor Insurance:CARESOURCEPo REGINAB: [facility] licy Number: [id number] Hospital [id number] Repository Date:2018-03-18[address]ATTN: [place] [address]BK: 03/27/2018 Tertiary NOT GIVENUNK Hensley Insurance:SELF PAY [facility]: Effective Repository Date:2018-03-18 03/17/2018 AFSANEH Montgomery Primary AFSANEH Montgomery Hensley [id number] E Insurance:MEDICARE KELLEYDOB: Community [place] PART A BPolicy Number: [id number] [id number] Repository 34918Qip: 330) Date:2018-03-17 [phone] () 03/17/2018 Secondary AFSANEH Montgomery Hensley Insurance:CARESOURCEPo KELLEYDOB: Community licy Number: [id number] Hospital [id number] Repository Date:2018-03-17[address]ATTN: [place] [address]GF: 03/17/2018 Tertiary NOT GIVENUNK Erna Insurance:SELF PAY [facility] Number: Effective Repository Date:2018-03-17 02/19/2018 AFSANEH Montgomery Primary AFSANEH Montgomery Hensley [id number] E Insurance:MEDICARE KELLEYDOB: Community [place] PART A BPolicy Number: [id number] [id number] Repository 01194Lqi: 330) Date:2018-02-19 [phone] () 02/19/2018 Secondary AFSANEH Montgomery Hensley Insurance:CARESOURCEPo KELLEYDOB: Community licy Number: [id number] Hospital [id number] Repository Date:2018-02-19[address]ATTN: [place] [address]KS: 02/19/2018 Tertiary NOT GIVENUNK Erna Insurance:SELF PAY [facility] Number: Effective Repository Date:2018-02-19 02/19/2018 AFSANEH Montgomery Primary AFSANEH Montgomery Hensley [id number] E Insurance:MEDICARE KELLEYDOB: Community [place] PART A BPolicy Number: [id number] [id number] Repository 382[address]Zmm: (584) Date:2018-02-19 [phone] () 02/19/2018 Secondary AFSANEH Montgomery Hensley Insurance:CARESOURCEPo CHRISSYDOB: Community licy Number: [id number] Hospital [id number] Repository Date:2018-02-19[address]ATTN: [place] [address]XS: 02/19/2018 Tertiary NOT GIVENUNK Erna Insurance:SELF PAY [facility] Number: Effective Repository Date:2018-02-19 02/19/2018 AFSANEH Montgomery Primary AFSANEH Balloster [id number] E Insurance:MEDICARE KELLEYDOB: [facility] [place] PART A BPolicy Number: [id number] [id number] Repository [address]Tub: (330) Date:2018-02-19 [phone] () 02/19/2018 Secondary AFSANEH Montgomery Erna Insurance:CARESOURCEPo CHRISSYDOB: Community licy Number: [id number] Hospital [id number] Repository Date:2018-02-19[address]ATTN: [place] [address]TX: 02/19/2018 Tertiary NOT GIVENUNK Hensley Insurance:SELF PAY [facility] Number: Effective Repository Date:2018-02-19 02/07/2018 AFSANEH Montgomery Primary AFSANEH [place] [id number] E Insurance:MEDICARE KELLEYDOB: Community [place] PART A BPolicy Number: [id number] [id number] Repository [address]Bdz: (330) Date:2018-02-07 [phone] () 02/07/2018 Secondary AFSANEH Balloster Insurance:CARESOURCEPo CHRISSYDOB: Community licy Number: [id number] Hospital [id number] Repository Date:2018-02-[address]ATTN: [place] [address]BM: 02/07/2018 Tertiary NOT GIVENUNK Hensley Insurance:SELF PAY [facility] Number: Effective Repository Date:2018-02-07 01/13/2018 AFSANEH Montgomery Primary AFSANEH Umanzor [id number] E Insurance:MEDICARE KELLEYDOB: [facility] PART A BPolicy Number: [id number] [id number] Repository [address]Vfx: (330) Date:2018-01-13 [phone] () 01/13/2018 Secondary AFSANEH Umanzor Insurance:CARESOURCEPo [facility]ELLEYDOB: [facility] Number: [id number] Hospital [id number] Repository Date:2018-01-13 [address]ATTN: [place] [address]SX: 01/13/2018 Tertiary NOT GIVENUNK Hensley Insurance:SELF PAY [facility] Number: Effective Repository Date:2018-01-13 01/04/2018 AFSANEH Montgomery Primary AFSANEH Wardrere KELLEYDOB: Insurance:MEDICARE KELLEYDOB: [facility] E [facility] [id number] [facility] Number: 4 NON PARIEL Repository [address] [place] [address] [id number] [facility] [id number]: Date:Plan Name:[place] [phone] () 01/04/2018 Secondary AFSANEH Wardfrancescasarika Insurance:CARESOURCE KELLEYDOB: [facility] OUTPATIENTPol[facility] [id number] Hospital Number: 2 MAKSIM Repository [id number] [place] Date:Plan Name:X3 [id number] 12/02/2017 AFSANEH Montgomery Primary AFSANEH Umanzor [id number] E Insurance:MEDICARE KELLEYDOB: [facility] PART A BPolicy Number: [id number] [id number] Repository [address]Xbp: (330) Date:2017-12-02 [phone] () 12/02/2017 Secondary AFSANEH M Erna Insurance:CARESOURCEPo KELLEYDOB: Community licy Number: [id number] [facility] [id number] Repository Date:2017-12-[address]ATTN: [place] [address]OV: 12/02/2017 Tertiary NOT GIVENUNK Erna Insurance:SELF PAY [facility] Number: Effective Repository Date:2017-12-02 11/19/2017 AFSANEH Montgomery Primary AFSANEH Montgomery Erna [id number] E Insurance:MEDICARE KELLEYDOB: [facility] PART A BPolicy Number: [id number] [id number] Repository [address]Pgm: 330) Date:2017-11-19 [phone] () 11/19/2017 Secondary AFSANEH Montgomery Erna Insurance:CARESOURCEPo KELLEYDOB: [facility] licy Number: [id number] Hospital [id number] Repository Date:2017-11-19[address]ATTN: [place] [address]MO: 11/19/2017 Tertiary NOT GIVENUNK Hensley Insurance:SELF PAY [facility] Number: Effective Repository Date:2017-11-19 11/07/2017 AFSANEH Montgomery Primary AFSANEH Wood MARCELINOLEYDOB: Insurance:MEDICARE KELLEYDOB: [facility] [id number] [place] [address] Number: [address] [id number] [address] [place] [address] [id number]: Date:Plan Name: [id number] () 11/07/2017 Secondary Afsaneh Wood Insurance:CARESOURCE KelleyDOB: [facility] [id number] Hospital Number: 2 MAKSIM Repository [id number] Date:Plan Name:[id number] [id number] 10/01/2017 AFSANEH Montgomery Primary AFSANEH Wood KELLEYDOB: Insurance:MEDICARE KELLEYDOB: [facility] [id number] [facility] Number: 4 NON PARIEL Repository [address] [place] [address] [id number] [facility] [id number]: Date:Plan Name:[place] [phone] () 10/01/2017 Secondary AFSANEH Wood Insurance:CARESOURCE KELLEYDOB: [facility] [id number] Hospital Number: 2 MAKSIM Repository [id number] [place] Date:Plan Name: [id number] 09/12/2017 AFSANEH Montgomery Primary AFSANEH Ulises Wood KELLEYDOB: Insurance:MEDICARE KELLEYDOB: [facility] [id number] [place] [address] Number: [facility] Repository [address] [place] [address] [id number] [place] [address] [id number]: Date:Plan Name: [id number] () 09/12/2017 Secondary Afsaneh Wood Insurance:CARESOURCE KelleyDOB: [facility] [id number] Hospital Number: 2 MAKSIM Repository [id number] [place] Date: [id number] 09/12/2017 Tertiary AFSANEH Wood Insurance:MEDICARE KELLEYDOB: [facility] [id number] Hospital Number: E [facility] APT Repository [id number] [facility] [place] Date:Plan Name: [id number] 08/19/2017 AFSANEH Montgomery Primary AFSANEH Ulises Erna [id number] E Insurance:MEDICARE KELLEYDOB: [facility] PART A BPolicy Number: [id number] [address] [id number] Repository [address]Roh: (330) Date:2017-07-24 [phone] () 08/19/2017 Secondary AFSANEH M Hensley Insurance:CARESOURCEPo KELLEYDOB: Community licy Number: [id number] [id number] Repository Date:2017-07-24[address]ATTN: [place] [address]OD: 08/19/2017 Tertiary NOT GIVENUNK Erna Insurance:SELF PAY [facility] Number: Effective Repository Date:2017-07-24 08/07/2017 AFSANEH Montgomery Primary AFSANEH Montgomery Erna [id number] E Insurance:MEDICARE KELLEYDOB: Community [place] PART A BPolicy Number: [id number] [id number] Repository [address]Dla: (330) Date:2017-08-07 [phone] () 08/07/2017 Secondary AFSANEH Montgomery Hensley Insurance:CARESOURCEPo KELLEYDOB: Community licy Number: [id number] [id number] Repository Date:2017-08-07[address]ATTN: [place] [address]CM: 08/07/2017 Tertiary NOT GIVENUNK Erna Insurance:SELF PAY [facility] Number: Effective Repository Date:2017-08-07 06/19/2017 AFSANEH Montgomery Primary AFSANEH Balloster [id number] E Insurance:MEDICARE KELLEYDOB: Community [place] PART A BPolicy Number: [id number] [id number] Repository [address]Tid: (330) Date:2017-05-31 [phone] (HP) 06/19/2017 Secondary AFSANEH Montgomery Erna Insurance:CARESOURCEPo KELLEYDOB: Community licy Number: [id number] Hospital [id number] Repository Date:2017-05-31[address]ATTN: [place] [address]ZH: 06/19/2017 Tertiary NOT GIVENUNK Erna Insurance:SELF PAY [facility] Number: Effective Repository Date:2017-05-31 05/24/2017 Afsaneh Montgomery Primary AFSANEH Montgomery Hensley [id number] E Insurance:MEDICARE KELLEYDOB: [facility] [address] PART A BPolicy Number: [id number] [id number] Repository [address]Ich: (330) Date:2002-04-29 [phone] () 05/24/2017 Secondary AFSANEH Montgomery Erna Insurance:CARESOURCEPo KELLEYDOB: Community licy Number: [id number] Hospital [id number] Repository Date:2013-11-27[address]ATTN: [place] [address]KR: 05/24/2017 Tertiary NOT GIVENUNK Hensley Insurance:SELF PAY [facility] Number: Effective Repository Date:2017-03-18 05/22/2017 AFSANEH Montgomery Primary AFSANEH Montgomery Erna [id number] E Insurance:MEDICARE KELLEYDOB: Community [facility] [place] PART A BPolicy Number: [id number] [id number] Repository [address]Lxf: (330) Date:2017-05-21 [phone] () 05/22/2017 Secondary AFSANEH Montgomery Erna Insurance:CARESOURCEPo KELLEYDOB: Community licy Number: [id number] Hospital [id number] Repository Date:2017-05-21[address]ATTN: [place] [address]ZA: 05/22/2017 Tertiary NOT GIVENUNK Hensley Insurance:SELF PAY [facility] Number: Effective Repository Date:2017-05-22 05/21/2017 AFSANEH Montgomery Primary AFSANEH Montgomery Hensley [id number] E Insurance:MEDICARE KELLEYDOB: Community [place] PART A BPolicy Number: [id number] [id number] Repository [address]Vso: (330) Date:2017-05-21 [phone] () 05/21/2017 Secondary AFSANEH Montgomery Erna Insurance:CARESOURCEPo KELLEYDOB: Community licy Number: [id number] Hospital [id number] Repository Date:2017-05-21[address]ATTN: [place] [address]JP: 05/21/2017 Tertiary NOT GIVENUNK Erna Insurance:SELF PAY [facility] Number: Effective Repository Date:2017-05-21 05/21/2017 AFSANEH Montgomery Primary AFSANEH Umanzor [id number] E Insurance:MEDICARE [facility] Number: [id number] [id number] Repository [address]Nxe: (926) Date:2017-05-21 [phone] () 05/21/2017 Secondary AFSANEH Montgomery Hensley Insurance:CARESOURCEPo KELLEYDOB: Community licy Number: [id number] Hospital [id number] Repository Date:2017-05-21 [address]ATTN: [place] [address]CW: 05/21/2017 Tertiary NOT GIVENUNK Hensley Insurance:SELF PAY [facility] Number: Effective Repository Date:2017-05-21 05/21/2017 AFSANEH Montgomery Primary AFSANEH Umanzor [id number] E Insurance:MEDICARE [facility]Policy Number: [id number] [id number] Repository [address]Uhz: (330) Date:2017-05-21 [phone] () 05/21/2017 Secondary AFSANEH Montgomery Hensley Insurance:CARESOURCEPo KELLEYDOB: Community licy Number: [id number] Hospital [id number] Repository Date:2017-05-21[address]ATTN: [place] [address]KS: 05/21/2017 Tertiary NOT GIVENUNK Hensley Insurance:SELF PAY [facility] Number: Effective Repository Date:2017-05-21 05/16/2017 AFSANEH Montgomery Primary AFSANEH M Erna [id number] E Insurance:MEDICARE KELLEYDOB: Community [place] PART A BPolicy Number: [id number] [id number] Repository [address]Qle: (330) Date:2017-05-16 [phone] () 05/16/2017 Secondary AFSANEH Montgomery Erna Insurance:[facility] KELLEYDOB: Community *[facility] [id number] Hospital Number: Repository [id number] Date:[id number] [address] [address]OL: 05/16/2017 Tertiary AFSANEH [place] Insurance:CARESOURCEPo KELLEYDOB: Community licy Number: [id number] Hospital 1Effective Repository Date:2017-05-16[address]ATTN: [place] [address]OE: 05/16/2017 Tertiary NOT GIVENUNK Hensley Insurance:SELF PAY [facility] Number: Effective Repository Date:2017-05-16 05/03/2017 AFSANEH Montgomery Primary AFSANEH Montgomery Erna [id number] E Insurance:MEDICARE KELLEYDOB: Community [place] PART A BPolicy Number: [id number] [id number] Repository [address]Gda: (330) Date:2017-04-30 [phone] () 05/03/2017 Secondary AFSANEH Montgomery Erna Insurance:CARESOURCEPo KELLEYDOB: Community licy Number: [id number] Hospital 1Effective Repository Date:2017-04-30[address]ATTN: [place] [address]JO: 05/03/2017 Tertiary NOT GIVENUNK Erna Insurance:SELF PAY [facility] Number: Effective Repository Date:2017-04-30 04/25/2017 AFSANEH Montgomery Primary AFSANEH Montgomery Hensley [id number] E Insurance:MEDICARE KELLEYDOB: Community [place] PART A BPolicy Number: [id number] [id number] Repository [address]Gmv: 330) Date:2002-04-29 [phone] () 04/25/2017 Secondary AFSANEH Umanzor Insurance:PHILIPSOStew TAPIAB: Community licy Number: [id number] Hospital [id number] Repository Date:2013-11-27 [address]ATTN: [place] [address]UB: 04/25/2017 [facility] Insurance:SELF PAY [facility] Number: Effective Repository Date:2017-03-18
== END 2018-03-27 09:22 | disposition home or self-care (01) ==
LOC: SDC 05:47 → AC 05:49
PROVIDERS: Family Provider Internal Medicine; PCP Internal Medicine; Referring Provider Orthopaedic Surgery; Visit Provider Orthopaedic Surgery
PROC: (CPT 25605; principal; 2018-03-27 07:00)
DX: S52.511A Displaced fracture of right radial styloid process, initial encounter for closed fracture (principal); S52.611A Displaced fracture of right ulna styloid process, initial encounter for closed fracture; W19.XXXA Unspecified fall, initial encounter; Y93.9 Activity, unspecified; Y92.009 Unspecified place in unspecified non-institutional (private) residence as the place of occurrence of the external cause; Y99.9 Unspecified external cause status; I11.0 Hypertensive heart disease with heart failure; I50.9 Heart failure, unspecified; G40.909 Epilepsy, unspecified, not intractable, without status epilepticus; J44.9 Chronic obstructive pulmonary disease, unspecified; E11.9 Type 2 diabetes mellitus without complications; E78.00 Pure hypercholesterolemia, unspecified; M19.90 Unspecified osteoarthritis, unspecified site; F17.200 Nicotine dependence, unspecified, uncomplicated; Z79.899 Other long term (current) drug therapy; Z78.0 Asymptomatic menopausal state; F32.9 Major depressive disorder, single episode, unspecified; F41.9 Anxiety disorder, unspecified; I25.2 Old myocardial infarction; Z87.442 Personal history of urinary calculi
CPT/HCPCS: 25605; 73110; 76000; J7120

== ENCOUNTER 2018-04-29 18:01 | Emergency (ER) | payer MEDICARE, MEDICAID, SELFPAY ==
[2018-04-29 18:03] VITALS: BP 152/102; PULSE 108; RESP 14; TEMP 36.6; O2SAT 96; BMI 41.7
--- NOTE | 2018-04-29 18:20 | RAD_ITS ---
STUDY: X-RAY - RIGHT SHOULDER REASON FOR EXAM: Female, 62 years old. Pain TECHNIQUE: 2 view(s) of the shoulder. COMPARISON: None. FINDINGS: Anterior subglenoid dislocation of the humeral head. Arthrosis of the acromioclavicular joint. Normal acromion. Normal humeral head and visualized proximal humerus. The soft tissue structures are unremarkable. Normal visualized pulmonary apex. RAD/Shoulder min 2 Views IMPRESSION: Subglenoid dislocation of the humeral head. No evidence for associated fracture Electronically Signed: Georges Aldridge MD at 19:27 EST , Service support ,
--- NOTE | 2018-04-29 18:26 | ED.VISSUMM ---
- ER Visit Summary Date of Service: 04/29/18 Chief Complaint: Fall, shoulder injury History of Present Illness: The patient is a 62 F presents to the emergency department after mechanical fall. Patient was in her normal state of health. She is legally blind. She was ambulating with her dog and tripped over the leash. She fell to the ground landing on her right shoulder. She struck her head but did not lose consciousness. Since then, she had increasing pain in the right shoulder. She is not on anticoagulants. She did recently have right wrist fracture reduction and casting by orthopedics. She denies other injury. She has not taken anything for pain. Physical Examination: Vital signs reviewed General: Well-nourished, well-developed Head: Normocephalic, atraumatic Eyes: Pupils equal and reactive, extraocular muscles intact Neck, supple, no lymphadenopathy Heart: Regular rate and rhythm Respiratory: No distress, clear bilaterally Abdomen: Soft, nontender, nondistended, no peritoneal signs Back: Nontender Extremities: Tenderness over the right shoulder without step-off, axillary nerve preserved, no edema, no cords Skin: Normal color no rash Neuro: Alert and oriented, no focal or lateralizing deficits Test Results: [] Emergency Department Course and Treatment: X-rays of the right shoulder were obtained. It does show anterior dislocation. The patient has normal pulses and axillary nerve is preserved. She was consented for conscious sedation. Patient was given propofol. I was able to reduce the shoulder back in place. Postreduction films show no evidence of fracture and the shoulder is back in place. The patient was placed in a sling. She was given a short course of analgesics. She already has follow-up scheduled for Dr. Griffiths and will keep this. The patient will be discharged home.] Treatment Plan: [] Disposition: Discharge Impression: 1. Right shoulder dislocation 2. Shoulder reduction 3. Conscious sedation This note was generated with [employer] dictation software. It may contain incorrect words, spelling, and punctuation that were not noted in review of the chart prior to signing ED Disposition - Plan for ED Patient: Chief Complaint: Upper Extremity Injury Instructions: ED Dislocation Shoulder Redu Prescriptions: Hydrocodone Bitart/Apap 5-325 [[place] 5MG-325MG] 1 tab PO Q6H PRN PRN 3 Days #10 tab PRN Reason: Pain Referrals: Trent Griffiths DO [STAFF PHYSICIAN] -
[2018-04-29 18:49] VITALS: O2SAT 96
[2018-04-29] MEDS: HYDROcodone Bitartrate/Apap 5/325 Tablet PO (19:04)
[2018-04-29 19:35] VITALS: BP 120/74; BP 139/73; BP 148/87; PULSE 100; PULSE 110; PULSE 95; RESP 14; RESP 20; O2SAT 100; O2SAT 98
[2018-04-29] MEDS: Propofol 200 MG/20 ML Vial IV BOLUS (19:38)
[2018-04-29 19:45] VITALS: BP 139/73; O2SAT 100
[2018-04-29 19:50] VITALS: BP 135/78; PULSE 94; RESP 18; O2SAT 100
--- NOTE | 2018-04-29 20:04 | RAD_ITS ---
STUDY: X-RAY - RIGHT SHOULDER REASON FOR EXAM: Female, 62 years old. Post reduction TECHNIQUE: 1 view(s) of the shoulder. COMPARISON: April 29, 2017 6:27 PM FINDINGS: Previously noted right shoulder dislocation has been reduced with restorationism of the joint to normal anatomic configuration. There is no definitive evidence for fracture RAD/Shoulder One View IMPRESSION: Status post reduction of right shoulder dislocation Electronically Signed: Georges Aldridge MD at 20:45 EST , Service support ,
[2018-04-29 21:03] VITALS: BP 136/59; PULSE 94; RESP 16; O2SAT 97
== END 2018-04-29 21:04 | disposition home or self-care (01) ==
PROVIDERS: Emergency Provider Emergency Medicine; Family Provider Internal Medicine; PCP Internal Medicine
DX: S43.014A Anterior dislocation of right humerus, initial encounter (principal); W18.09XA Striking against other object with subsequent fall, initial encounter; Y93.K1 Activity, walking an animal; Y99.8 Other external cause status; H54.8 Legal blindness, as defined in USA; I25.10 Atherosclerotic heart disease of native coronary artery without angina pectoris; I10 Essential (primary) hypertension; E11.9 Type 2 diabetes mellitus without complications; J44.9 Chronic obstructive pulmonary disease, unspecified; Z79.899 Other long term (current) drug therapy; Z72.0 Tobacco use
CPT/HCPCS: 23650; 73020; 73030; 99285; J7030; A4216

== ENCOUNTER → 2018-06-04 15:12 | Outpatient (CLI) | payer MEDICARE, MEDICAID, SELFPAY ==
[2018-06-04 17:27] LABS: Amphetamine Urine VISTA NEGATIVE (<1000 ng/mL); Barbiturate Urine VISTA NEGATIVE (< 200 ng/mL); Benzodiazepine Urine VISTA NEGATIVE (< 200 ng/mL); Cocaine Urine VISTA NEGATIVE (< 300 ng/mL); Ecstacy Urine VISTA POSITIVE (< 500 ng/mL); Methadone Urine VISTA NEGATIVE (< 300 ng/mL); PCP Urine VISTA NEGATIVE (< 25 ng/mL); THC Urine VISTA NEGATIVE (< 50 ng/mL); Vista UDS pH Range 6
== END ==
PROVIDERS: Family Provider Internal Medicine; PCP Internal Medicine; Referring Provider Anesthesiology; Visit Provider Anesthesiology
DX: F11.20 Opioid dependence, uncomplicated (principal)
CPT/HCPCS: 80307

== ENCOUNTER → 2018-06-27 15:12 | Outpatient (CLI) | payer MEDICARE, MEDICAID, SELFPAY ==
[2018-06-27 16:29] LABS: Valproic Acid (Depakene) Level 48 ug/mL (50-100)
[2018-06-27 18:16] LABS: Amphetamine Urine VISTA NEGATIVE (<1000 ng/mL); Barbiturate Urine VISTA NEGATIVE (< 200 ng/mL); Benzodiazepine Urine VISTA NEGATIVE (< 200 ng/mL); Cocaine Urine VISTA NEGATIVE (< 300 ng/mL); Ecstacy Urine VISTA NEGATIVE (< 500 ng/mL); Methadone Urine VISTA NEGATIVE (< 300 ng/mL); PCP Urine VISTA NEGATIVE (< 25 ng/mL); THC Urine VISTA NEGATIVE (< 50 ng/mL); Vista UDS pH Range 7
== END ==
PROVIDERS: Family Provider Internal Medicine; PCP Internal Medicine; Referring Provider Anesthesiology; Visit Provider Anesthesiology
DX: F11.20 Opioid dependence, uncomplicated (principal); R56.9 Unspecified convulsions
CPT/HCPCS: 80164; 80185; 80201; 80307

== ENCOUNTER 2018-07-27 02:12 | Emergency (ER) | payer MEDICARE, MEDICAID, SELFPAY ==
[2018-07-27 02:13] VITALS: BP 114/67; PULSE 80; RESP 16; TEMP 36.7; O2SAT 97; BMI 40.2
--- NOTE | 2018-07-27 02:14 | EKG12_ITS ---
Test Reason : CP Blood Pressure : / mmHG Vent. Rate : 079 BPM Atrial Rate : 079 BPM P-R Int : 196 ms QRS Dur : 072 ms QT Int : 392 ms P-R-T Axes : 041 -12 016 degrees QTc Int : 449 ms Normal sinus rhythm Inferior infarct (cited on or before 19-FEB-2018), age undetermined Abnormal ECG Confirmed by JANI ROJAS, NADIA ([id number]), scientific editor HERMAN DOWNS ([id number]) on 08/01/2018 10:56:19 AM Referred By: LELA Confirmed By:NADIA GUNTER MD
--- NOTE | 2018-07-27 02:32 | RAD_ITS ---
STUDY: X-RAY - UNILATERAL RIBS ( LEFT ) WITH CHEST REASON FOR EXAM: Female, 62 years old. Chest pain. TECHNIQUE - RIBS: 4 view(s) of the ribs. TECHNIQUE - CHEST: Single frontal view of the chest. COMPARISON: Chest x-ray 05/21/2017. FINDINGS - RIBS: There are old healed fractures of the anterior segment of the left fifth and sixth ribs.. There is no demonstrated acute rib fracture. FINDINGS - CHEST: The lungs are clear and expanded. There is no demonstrated pleural abnormality. Normal size heart. Normal mediastinum and ita. Normal visualized pulmonary arteries. Normal visualized aortic arch and descending thoracic aorta. Normal visualized thoracic spine. Normal visualized clavicles and shoulders. Shoulders. There is no demonstrated abnormality of the visualized soft tissue structures of the upper abdomen. RAD/Ribs Uni Min 3V w/PA Chest IMPRESSION: RIBS: Old healed left fifth and sixth rib fractures. No demonstrated acute rib fractures. CHEST: Normal x-ray examination of the chest. Electronically Signed: Aristeo Livingston MD at 4:14 EDT , Service support ,
[2018-07-27] MEDS: Acetaminophen 500 MG Tablet 1000 MG PO (02:55)
[2018-07-27 03:54] VITALS: BP 114/74; PULSE 79; RESP 13
[2018-07-27 04:01] VITALS: RESP 13
--- NOTE | 2018-07-27 04:25 | ED.DCSUM_ITS ---
- ER Visit Summary Date of Service: 07/27/18 Chief Complaint: Chest pain History of Present Illness: The patient is a 62 F who presents with chest pain. Is been present for 3 days. She complains of sharp pain in her left upper chest that is worse with movement or palpation. She has no associated symptoms. She denies fever shortness of breath cough nausea vomiting. No back pain. She denies any recent trauma or injury. She denies any history of cardiac disease. She has not tried any supportive care medications at home. Physical Examination: Afebrile vitals are normal Patient is resting comfortably in no distress Heart is regular rate and rhythm Lungs are clear Patient is point tender along the left upper chest wall there is no rash Active full range of motion of the shoulder Extremities nontender symmetric radial pulses Alert Test Results: EKG shows normal sinus rhythm at a rate of 79 there are inferior Q waves in leads III and aVF this is similar to prior EKG. Rib series was obtained which shows old left fifth and sixth rib fractures normal chest. Emergency Department Course and Treatment: Patient was given Tylenol here for pain. Workup as above unremarkable. Patient's pain seems to be musculoskeletal in nature related to chest wall pain. She was advised on supportive care. She understands to return for new or worsening symptoms. Patient discharged. Treatment Plan: [] Disposition: Discharge Impression: Chest wall pain This note was generated with [employer] dictation software. It may contain incorrect words, spelling, and punctuation that were not noted in review of the chart prior to signing ED Disposition - Plan for ED Patient: Referrals: Fatoumata Rosen MD [Primary Care Provider] -
--- NOTE | 2018-07-27 04:25 | ED.DEP ---
ED Disposition - Plan for ED Patient: Instructions: ED Strain Chest Wall Referrals: Fatoumata Rosen MD [Primary Care Provider] -
[2018-07-27 04:43] VITALS: BP 115/88; PULSE 76; RESP 14; O2SAT 99
== END 2018-07-27 05:02 | disposition home or self-care (01) ==
PROVIDERS: Emergency Provider Emergency Medicine; Family Provider Internal Medicine; PCP Internal Medicine
DX: R07.89 Other chest pain (principal); M54.5 Low back pain; G89.29 Other chronic pain; Z79.899 Other long term (current) drug therapy; Z86.73 Personal history of transient ischemic attack (TIA), and cerebral infarction without residual deficits; Z72.0 Tobacco use
CPT/HCPCS: 71101; 93005; 99285; J7030; A4216

== ENCOUNTER → 2018-08-13 09:40 | Outpatient (CLI) | payer MEDICARE, MEDICAID, SELFPAY ==
[2018-07-27 02:13] VITALS: BMI 40.2
--- NOTE | 2018-08-13 09:45 | RAD_ITS ---
STUDY: X-RAY - RIGHT WRIST REASON FOR EXAM: Female, 62 years old. Fracture in April. Continuing to have pain. TECHNIQUE: 4 view(s) of the wrist were obtained. COMPARISON: March 17, 2018 FINDINGS: There is generalized osteopenia unchanged. There is an impacted comminuted fracture of the distal radius with dorsal displacement of the distal fragment, relatively unchanged in position. There is minimal callus formation at the fracture sites. There is a fracture through the base of the ulnar styloid which shows no progressive healing. There is arthrosis of the intercarpal articulations unchanged. There is arthrosis of the first carpometacarpal joint unchanged. Normal second through fifth carpometacarpal articulations. Normal visualized metacarpal bones. The soft tissue structures are unremarkable. RAD/Wrist min 3 Views IMPRESSION: Healing fractures of the distal radius and ulna as described. Callus formation at the radial fracture site but no callus formation noted at the ulnar styloid side. Electronically Signed: Patrice Dawson MD at 13:00 EDT , Service support ,
--- NOTE | 2018-08-13 09:45 | RAD_ITS ---
STUDY: X-RAY - PELVIS AND RIGHT HIP REASON FOR EXAM: Female, 62 years old. Pain in the right hip radiate down into the right leg. No injury. TECHNIQUE: Frontal pelvis, frontal and frog-leg lateral right hip. COMPARISON: 05/29/2016. FINDINGS: Mild degenerative features of left hip joint, minimal acetabular margin osteophytic spurring. Severe degenerative changes of the right hip joint, lrtw-ad-tktq articulation, articular surface sclerosis, moderate joint margin osteophytic lipping. No fracture. Pelvis intact, mild SI joint degenerative changes. Low lumbar spondylosis. RAD/HIP, UNI W/ Pelvis 2-3 Views IMPRESSION: Severe DJD of the right hip joint. Electronically Signed: Murray Hanna MD at 18:01 EDT Tel , Service support ,
== END ==
PROVIDERS: Family Provider Internal Medicine; PCP Internal Medicine; Referring Provider Anesthesiology; Visit Provider Anesthesiology
DX: M25.541 Pain in joints of right hand (principal); M25.551 Pain in right hip
CPT/HCPCS: 73110; 73502

== ENCOUNTER 2018-08-21 13:27 | Outpatient (RCR) | payer MEDICARE, MEDICAID, SELFPAY ==
--- NOTE | 2018-08-25 13:06 | HP.OTEVAL ---
Patient's Visit Information DIONE LOWE is a 62 year old F, referred to Occupational Therapy by Patrice Mata PA-C, with a diagnosis of right extraarticular fx. Date of Evaluation: 08/21/18 Occupational Therapist: Kaur Fitzgerald, OTR/Lala, CHT - Subjective Subjective: This 62 year old female was seen for intial OT eval with dx of right wrist fx. pt states Feb,. pt states she went to ER [facility] was set by ER dr and then went to see Dr. Griffiths-Reading pts information from Dr. Griffiths pt initial injury was on 2017 and dx with a displaced right radial styloid process fx. per note Dr. griffiths recommended taking pt to sx to fix her displaced right wrist fracture. Pts next note was for follow up with Royce Martínez with doc. of extraarticular fx of lower end of right radius and scheduled pt with specialist on 04/14/18. - ADLs Comments: Pt has aide 5x week 5 hours a day. Pt reports aide assist with meals, cleaning, bathing and dressing. pt states she will be moving to mobile home next week and will keep aid for assistance. - Pain right wrist 9 Pain Intensity Range: 7, 9 - Objective Objective/Observation: pt demo with muscle atrophy in right dorsal and volar forearm. - ROM Forearm: right WFL but states pain increases Wrist: right 0/20 with pain left 65/60 ROM Comments: right RD 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 - Sensation Thumb: right/left 2.83 Index: right/left 2.83 Middle: right/left 2.83 Ring: right/left 2.83 Little: right/left 2.83 Sensation Comments: pt states since manipulation she has had tingling in her right IF, MF and thumb. - Quick DASH-Disab of Arm,Shoulder& Hand Quick DASH Score: [phone] - Rehabilitation General Assessment: Reading pts information from Dr. Griffiths pt initial injury was on 2017 and dx with a displaced right radial styloid process fx. per note Dr. griffiths recommended taking pt to sx to fix her displaced right wrist fracture. Pts next note was for follow up with Royce Martínez with doc. of extraarticular fx of lower end of right radius and scheduled pt with specialist on 04/14/18. Pt reports she did see [facility] and states due to her pain level and limited ability to use her UE for ADLs and IADls she would like to pursue sx repair to her wrist. Today pt is demo with a decrease in functional ROM and strength, pain limiting her with evaluation today. Therapist ed. pt on initiation of ROM ex and would persue PRE when juan carlos. pt verbalized she was going to schedule apt to see hand specialist to have sx. Rehabilitation Potential: Good - Anticipated Interventions Anticipated Interventions: A/AAROM/PROM, Strengthening, Modalities, Orthoses, Joint Protection/Energy Conservation, Ergonomic Education - Visit Plan General Plan: per pt she does not want to schedule further OT sessions as she wants to have sx to decrease her pain. TEXT: Thank you for the opportunity to evaluate your patient. For Medicare and Medicare HMO plans, please review the plan of care and approve it. It will need to be FAXED BACK to us at [phone] for Medicare purposes. Please let me know if there are questions or concerns regarding this plan of care. Physician Signature: Date:
--- NOTE | 2018-09-26 07:45 | HP.OT.NRP ---
HP - Discharge Summary - Patient Information DIONE LOWE was seen in my office for initial evaluation on 08/21/18. The following Plan of Care was established for this patient: - Anticipated Interventions Anticipated Interventions: A/AAROM/PROM, Strengthening, Modalities, Orthoses, Joint Protection/Energy Conservation, Ergonomic Education This patient was last seen in our office 08/21/18. Pertinent comments regarding their Occupational therapy will appear below: Reading pts information from Dr. Griffiths pt initial injury was on 2017 and dx with a displaced right radial styloid process fx. per note Dr. griffiths recommended taking pt to sx to fix her displaced right wrist fracture. Pts next note was for follow up with Royce Martínez with doc. of extraarticular fx of lower end of right radius and scheduled pt with specialist on 04/14/18. Pt reports she did see [facility] specialist [facility] and states due to her pain level and limited ability to use her UE for ADLs and IADls she would like to pursue sx repair to her wrist. Today pt is demo with a decrease in functional ROM and strength, pain limiting her with evaluation today. Therapist ed. pt on initiation of ROM ex and would peruse PRE when juan carlos. pt verbalized she was going to schedule apt to see hand specialist to perform sx. Pt declined OT services at this time. At this point I will be discontinuing this patient from occupational therapy. I would be happy to see this patient again in the future if found appropriate by the physician. Thank you! Kaur Fitzgerald, OTR/L, CHT
== END 2018-08-21 19:00 | disposition home or self-care (01) ==
LOC: OT 13:27
PROVIDERS: Family Provider Internal Medicine; PCP Internal Medicine; Referring Provider Physician Assistant; Visit Provider Physician Assistant
DX: S52.551D Other extraarticular fracture of lower end of right radius, subsequent encounter for closed fracture with routine healing (principal)
CPT/HCPCS: 97166

== ENCOUNTER → 2018-09-11 10:01 | Outpatient (CLI) | payer MEDICARE, MEDICAID, SELFPAY ==
[2018-08-27 08:06] VITALS: BMI 40.1
[2018-09-11 11:22] LABS: Hemoglobin A1c 5.7 % (4.2-6.3)
== END ==
PROVIDERS: Family Provider Internal Medicine; PCP Internal Medicine; Referring Provider Internal Medicine; Visit Provider Internal Medicine
DX: R73.03 Prediabetes (principal)
CPT/HCPCS: 36415; 83036

== ENCOUNTER 2018-09-13 12:42 | Emergency (ER) | payer MEDICARE, MEDICAID, SELFPAY ==
[2018-08-27 08:06] VITALS: BMI 40.1
[2018-09-13 12:43] VITALS: BP 118/78; PULSE 100; RESP 18; TEMP 37.1; O2SAT 94; BMI 36.6
--- NOTE | 2018-09-13 13:05 | RAD_ITS ---
STUDY: X-RAY - PELVIS AND RIGHT HIP REASON FOR EXAM: Female, 62 years old. Fall this morning, right hip pain TECHNIQUE: 3 views of the pelvis and hip. COMPARISON: None. FINDINGS: There is a non-specific bowel gas pattern. Normal visualized soft tissue structures. Normal bilateral iliac wings, sacroiliac joints and visualized sacrum. Normal bilateral superior and inferior pubic rami. Normal pubic symphysis. Normal bilateral ischial tuberosities. There are osteoarthritic changes of the femoral head with marginal osteophyte formation. There is osteoarthritic spur formation of the acetabular rim. is severe articular joint space narrowing of the hip. RAD/HIP, UNI W/ Pelvis 2-3 Views IMPRESSION: No fracture or malalignment. Right hip osteoarthrosis. Electronically Signed: Hemant Jean-Baptiste MD at 14:01 EDT , Service support ,
[2018-09-13 13:38] LABS: Absolute Lymphocyte Count 2.78 X10^3/ul (0.83-4.51); Absolute Neutrophil Count 4.4 X10^3/uL (2.0-7.7); Basophil# 0.07 X10^3/uL; Basophil% 0.8 % (0-1); Eosinophil# 0.31 X10^3/uL; Eosinophils% 3.6 % (0-5); Hemoglobin 14.2 g/dl (12.0-15.0); Lymphocyte # 2.78 X10^3/ul (4.0); Lymphocyte % 32.4 % (19-41); Mean Corpuscular Hgb 30.6 pg (27.0-32.0); Mean Corpuscular Volume 92.7 fL (81-99); Monocyte# 0.98 X10^3/uL; Monocyte% 11.4 % (0-10); Neutrophil # 4.43 X10^3/uL (2.7-7.7); Neutrophil % 51.7 % (47-70); Platelet Count 302 K/mm3 (150-450); RBC Distribution Width CV 12.9 % (11.6-14.6); RBC Distribution Width SD 42.9 fl (35.1-43.9); Red Blood Count 4.64 M/mm3 (4.2-5.4); White Blood Count 8.6 K/mm3 (4.4-11.0)
[2018-09-13 13:41] LABS: POSITIVE COUNT NO; POSITIVE DIFFERENTIAL NO; POSITIVE MORPHOLOGY NO
[2018-09-13 13:51] LABS: Anion Gap 6 (5-15); BUN 13 mg/dL (7-18); BUN/Creat Ratio 18.4 RATIO (10-20); Calcium,Total 8.9 mg/dL (8.5-10.1); Chloride 108 mmol/L (98-107); Creatinine, Serum 0.71 mg/dL (0.55-1.02); EST Glomerular Filtration Rate 89 mL/min (>60); Est Glom Filt Rate - Afr Amer 108 mL/min (>60); Estimated Creatinine Clearance 65.81 ml/min; Glucose 130 mg/dL (74-106); Potassium 3.6 mmol/L (3.5-5.1); Sodium Level 141 mmol/L (136-145)
[2018-09-13 14:09] LABS: Alcohol, Blood (Medical)-Serum < 3.0 mg/dL
--- NOTE | 2018-09-13 14:58 | ED.VIS.PSYCH ---
History of Present Illness Chief Complaint: Mental Health Informant: Patient Onset: Days - Onset 3 days ago Context: Gradual Onset Conflict: - - Patient states she has not taken her medicine because the bottles are located on top of the refrigerator and she is unable to reach. Apparently she fell attempting to get her medication bottles Timing: Intermittent Current Severity: Mild Maximum Severity: Severe Worsened by: - - Noncompliance Relieved by: Nothing Associated Symptoms: Change in Eating, Change in sleeping, Auditory Hallucinations. Negative for: Depressed, Decreased Interest, Guilt, Decreased Concentration, Hopelessness, Suicidal Thoughts, Easily distracted, Grandiosity, Flight of Ideas, Increased activity, Angry, Hostile, Threatening Specific plan (suicidal thought): Patient has no plan. States voices are telling her to harm herself. Narrative: Patient is a elderly woman with history of schizophrenia who presents with increased auditory hallucinations because she has not been able to take her medication. Voices are telling her to harm herself. She has no intent on harming herself. She does complain of right hip pain status post fall. States it hurts to walk. She denies head trauma. She denies visual, ocular auditory symptoms. She denies cardiac respiratory symptoms. Denies black or maroon stool. She denies urinary symptoms. - Past Medical History (1) Anxiety and depression Status: Acute (2) Seizure Status: Acute (3) COPD (chronic obstructive pulmonary disease) Status: Chronic (4) Diabetes Status: Chronic (5) HTN (hypertension) Status: Chronic (6) Legal blindness Status: Chronic (7) Morbid obesity Status: Chronic (8) Schizophrenia Status: Chronic (9) Tobacco use Status: Chronic Past Medical History - Allergies and Home Meds Allergies/Adverse Reactions: Allergies sumatriptan [From Imitrex] Adverse Reaction (Verified 09/13/18 12:43) Vomiting sumatriptan succinate [From Imitrex] Adverse Reaction (Verified 09/13/18 12:43) Vomiting BEE STING Allergy (Uncoded 09/13/18 12:43) Anaphylaxis PAPER TAPE Adverse Reaction (Uncoded 09/13/18 12:43) Rash Primary Care Physician: Fatoumata Rosen MD [Primary Care Provider] - Prior records reviewed: Yes Surgical History: noncontributory, - Lives: Alone Smoking Status: Former smoker Alcohol: None Drugs: None - Family History Paternal Family History: Reports: - - Patient notes a maternal and paternal family history of heart disease including hypertension and diabetes. Maternal Family History: Reports: - - Patient notes a maternal and paternal family history of heart disease including hypertension and diabetes. Review of Systems General: Denies: Chills, Fever, Malaise, Subjective, Sweats Eyes: Denies: Visual changes - bilaterally, Diplopia ENT: Denies: Rhinorrhea, Sore throat Cardiovascular: Denies: Chest pain, Palpitations Respiratory: Denies: Dyspnea, Cough, Dyspnea on exertion Gastrointestinal: Denies: Abdominal pain, Nausea, Vomiting, Diarrhea, Melena, Hematochezia Genitourinary: Denies: Dysuria, Hematuria, Frequency Musculoskeletal: Reports: Extremity Pain - Right hip secondary to fall. Denies: Back pain Skin: Denies: Rash, Wounds Neurological: Denies: Headache, Weakness, Numbness Psych: Denies: Depression, Anxiety, Suicidal thoughts, Suicidal ideations Hematologic: Denies: Easy bruising, Easy bleeding Allergy: Denies: Uticaria, Swelling of the mouth, Swelling of the tongue Physical Exam Vital Signs/Narrative: Vital Signs Temp Pulse Resp BP Pulse Ox 09/13/18 12:43 98.7 F 100 18 118/78 94 Inital Vital Signs reviewed: Yes General: Well nourished, Well developed, - - Patient is wearing sunglasses. Head: Normocephalic, Atraumatic Eyes: Perrl, EOMI. Negative for: Pale conjunctiva, Scleral icterus, - ENT: Moist mucous membranes, No rhinorrhea, TM's clear Neck: Supple, Nontender, No lymphadenopathy, No JVD Cardiovascular: Regular rate, Regular rhythm, No murmurs, Normal S1, Normal S2 Respiratory: No distress, CTA bilaterally, Chest nontender Abdomen: Soft, Nontender, Nondistended, Normal bowel sounds, No masses Rectal: Deferred Back: Nontender, Normal Inspection Extremities: No Edema, Tenderness - Over the right greater trochanteric region and complains of pain with logrolling laterally not in the groin., Symmetric. Negative for: Nontender, Healed prior injuries Skin: Normal color, No rash. Negative for: Cyanosis, Jaundice Neurological: Alert, Oriented x3, Cranial nerves II-XII grossly intact, Normal Strength, Normal Sensation Psych: Normal Speech Pattern, No suicidal or homicidal ideation, Restricted Affect, Hallucinations. Negative for: Normal Stable Appropriate Affect, Normal Appearance, Suicidal thoughts, Homicidal thoughts, Paranoid Ideation Diagnostic/Tx/Re-eval Impressions Hip/Pelvis X-Ray 09/13/18 13:05 IMPRESSION: No fracture or malalignment. Right hip osteoarthrosis. Electronically Signed: Hemant Jean-Baptiste MD at 14:01 EDT , Service support , 09/13/18 13:05 HIP, UNI W/ Pelvis 2-3 Views [RAD] Stat Laboratory Results 09/13/18 09/13/18 09/13/18 12:35 12:35 12:35 WBC 8.6 RBC 4.64 Hgb 14.2 Hct 43.0 MCV 92.7 MCH 30.6 MCHC 33.0 RDW 12.9 RDW Differential 42.9 Plt Count 302 MPV 11.0 Immature Gran % (Auto) 0.100 Neut % (Auto) 51.7 Lymph % (Auto) 32.4 [place] % (Auto) 11.4 H Eos % (Auto) 3.6 Baso % (Auto) 0.8 Absolute Neuts (auto) 4.4 Absolute Lymphs (auto) 2.78 Total Counted Not Reportable Sodium 141 Potassium 3.6 Chloride 108 H Carbon Dioxide 27.0 Anion Gap 6 BUN 13 Creatinine 0.71 Estim Creat Clear Calc 65.81 Est GFR (MDRD) Af Amer 108 Est GFR (MDRD) Non-Af 89 BUN/Creatinine Ratio 18.4 Glucose 130 H Calcium 8.9 Urine Opiates Screen Urine Methadone Screen Ur Barbiturates Screen Ur Phencyclidine Scrn Ur Amphetamines Screen U Methamphetamin-MDMA U Benzodiazepines Scrn Urine Cocaine Screen U Cannabinoids Screen Ur Drug Screen Comment Ethyl Alcohol < 3.0 09/13/18 14:45 WBC RBC Hgb Hct MCV MCH MCHC RDW RDW Differential Plt Count MPV Immature Gran % (Auto) Neut % (Auto) Lymph % (Auto) [place] % (Auto) Eos % (Auto) Baso % (Auto) Absolute Neuts (auto) Absolute Lymphs (auto) Total Counted Sodium Potassium Chloride Carbon Dioxide Anion Gap BUN Creatinine Estim Creat Clear Calc Est GFR (MDRD) Af Amer Est GFR (MDRD) Non-Af BUN/Creatinine Ratio Glucose Calcium Urine Opiates Screen NEGATIVE Urine Methadone Screen NEGATIVE Ur Barbiturates Screen NEGATIVE Ur Phencyclidine Scrn NEGATIVE Ur Amphetamines Screen NEGATIVE U Methamphetamin-MDMA NEGATIVE U Benzodiazepines Scrn NEGATIVE Urine Cocaine Screen NEGATIVE U Cannabinoids Screen NEGATIVE Ur Drug Screen Comment Ethyl Alcohol - Rhythm Strip Rhythm Strip: Sinus Rhythm Rate: 74 Ectopy: None Restraints applied: No X-ray of the right hip was obtained to evaluate for fracture since she complains of pain with weightbearing and palpation. Also obtained appropriate blood tests for medical clearance. It is my opinion the patient's exacerbation is secondary to inability to take her medication. Since she has no thoughts of harming herself and has no specific plan she was not placed in suicide precaution. Mr. Grant Perry from the counseling center has evaluated patient. We are in agreement she is low risk for self-harm. Will discharge to home. ED Disposition - Plan for ED Patient: Disposition: Home or Assisted Living Diagnosis: Acute exacerbation of chronic schizophrenia Instructions: ED Schizophrenia General Referrals: Fatoumata Rosen MD [Primary Care Provider] - Counseling,Center [GROUP OF PHYSICIANS] - Keep Tamera appointment
[2018-09-13 15:00] VITALS: RESP 17
--- NOTE | 2018-09-13 15:00 | ED.RN ---
Per Dr. Cuadra, he does not think the pt is suicidal and does not need assigned suicidal precautions or bedside sitter at this time. Will have crisis see pt for further evaluation.
[2018-09-13] MEDS: HYDROcodone Bitartrate/Apap 5/325 Tablet PO (15:09)
[2018-09-13 16:09] VITALS: BP 163/98; PULSE 91; RESP 18; O2SAT 97
[2018-09-13 16:24] LABS: Amphetamine Urine VISTA NEGATIVE (<1000 ng/mL); Barbiturate Urine VISTA NEGATIVE (< 200 ng/mL); Benzodiazepine Urine VISTA NEGATIVE (< 200 ng/mL); Cocaine Urine VISTA NEGATIVE (< 300 ng/mL); Ecstacy Urine VISTA NEGATIVE (< 500 ng/mL); Methadone Urine VISTA NEGATIVE (< 300 ng/mL); PCP Urine VISTA NEGATIVE (< 25 ng/mL); THC Urine VISTA NEGATIVE (< 50 ng/mL); Vista UDS pH Range 6
[2018-09-13 17:22] VITALS: RESP 16
[2018-09-13 17:56] VITALS: BP 157/58; PULSE 90; RESP 18; O2SAT 97
== END 2018-09-13 17:57 | disposition home or self-care (01) ==
PROVIDERS: Emergency Provider Emergency Medicine; Family Provider Internal Medicine; PCP Internal Medicine
DX: F20.9 Schizophrenia, unspecified (principal); M16.11 Unilateral primary osteoarthritis, right hip; F32.9 Major depressive disorder, single episode, unspecified; F41.9 Anxiety disorder, unspecified; J44.9 Chronic obstructive pulmonary disease, unspecified; I10 Essential (primary) hypertension; E66.01 Morbid (severe) obesity due to excess calories; E11.9 Type 2 diabetes mellitus without complications; G40.909 Epilepsy, unspecified, not intractable, without status epilepticus; H54.8 Legal blindness, as defined in USA; Z68.36 Body mass index [BMI] 36.0-36.9, adult; Z91.14 Patient's other noncompliance with medication regimen; Z79.899 Other long term (current) drug therapy; Z87.891 Personal history of nicotine dependence
CPT/HCPCS: 36415; 73502; 80048; 80307; 80320; 85025; 99285; G0480

== ENCOUNTER 2018-11-18 05:51 | Inpatient (IN) | payer MEDICARE, MEDICAID, SELFPAY ==
[2018-09-17 08:23] VITALS: BMI 36.6
--- NOTE | 2018-11-03 02:36 | HP_ITS ---
Intake Vital Signs 11/03/18 Body Mass Index (BMI) 36.6 Intake Visit Reasons: R. HIP Is patient in pain?: Yes Allergies sumatriptan [From Imitrex] Adverse Reaction (Verified 09/30/18 10:22) Vomiting sumatriptan succinate [From Imitrex] Adverse Reaction (Verified 09/30/18 10:22) Vomiting BEE STING Allergy (Uncoded 09/13/18 12:43) Anaphylaxis PAPER TAPE Adverse Reaction (Uncoded 09/13/18 12:43) Rash [facility] Social History (Updated 11/03/18 @ 14:36 by CECILIA Santoro) Smoking Status: Former smoker HPI R. HIP : Surgical H&P: Yes Details: Parts of this documentation were recorded by a scribe, this documentation accurately reflects the service provided and the decisions made by me, CECILIA Santoro 11/03/18 1911. DIONE LOWE is a 63 year old F here today for right hip pain. She continues to have pain with sitting and walking, uses a walker at home all the time. Her complaint is that she has groin pain and buttock pain. She is here today with her aid that helps at home. She denies smoking though there is still a smoke odor. Denies numbness, tingling or other associated symptoms. Ortho Exam Right Hip Skin: No Ecchymosis, No soft tissue swelling Special Tests: Yes pain with log roll, No TTP Greater Troch, Yes C sign Homans Sign: No HIP: Patient has no abnormality on inspection of the visible skin (no erythema, inflammation, or open areas). Patient does have evident decreased motion to the left hip especially with internal and external rotation. Patient has approximately 5 degrees of internal rotation approximately 30 degrees of external rotation. Both of these movements do cause pain. She also has some pain with logroll. Pains are located primarily in the anterior groin area. Patient does have normal sensation to light touch. She does have palpable pulses (slightly diminished). Assessment & Plan Problems 1. Arthritis of right hip M16.11 2. Right hip pain M25.551 Plan Patient presented to the office today to sign consent again for right total hip arthroplasty. This had previously been discussed in depth with a surgeon at a previous visit. At that time she was currently smoking and was told she needed to quit before the operation could occur. She presents today after having successfully quit smoking and still wanting to proceed with total hip arthroplasty due to chronic pain and decreased functioning. Today we spent a lot of time discussing her medical history which includes a history of seizures, diabetes, COPD (chronic tobacco use), and hypertension. We did discuss the risks that these medical problems can play on complication rates. It has been over a year since she has had a seizure, her diabetes is currently well controlled with an A1c under 6, and it has been many years since she has had an exacerbation of her COPD. We discussed the possibility of increased seizure activity due to stress of surgery and the concern being that she could fall because dislocation or even fracture of the proximal femur. We will require surgical consent from her PCP and neurologist before proceeding. We again did discuss the general risks and benefits of procedure which patient acknowledges verbally. Dr. Nunes also came into the room to discuss the procedure, reiterated the risks and benefits, and answer any questions. Once completed consent was signed in office today. We discussed that if surgical consent is not received from her specialist within 30 days that we will need to re-update consent forms. Patient already was given surgical cleansed to be used the night before and morning of. We also did discuss preanesthesia testing as well as surgical times/scheduling. Patient can notify the office with any other questions in the meantime. Patient has no other questions at this time today. This note was generated with [employer] dictation software. It may contain incorrect words, spelling, and punctuation that were not noted in checking the note before signing. Coding Level of Care Code Off vis,est,level 3 Diagnoses Arthritis of right hip M16.11 Right hip pain M25.551 11/03/18 8026 <Electronically signed by Pastor BROOKS> Date _ Pastor BROOKS
[2018-11-03 10:04] VITALS: BMI 36.6
[2018-11-14 15:25] VITALS: BP 93/60; PULSE 83; RESP 16; TEMP 36.6; O2SAT 97; BMI 41.3
[2018-11-14 16:49] LABS: Partial Thromboplast Time 28.3 Seconds (24.1-36.2)
[2018-11-18] VITALS (15 sets, daily range): BP systolic 46–126; BP diastolic 31–72; PULSE 59–103; RESP 14–18; TEMP 36.1–37.1; O2SAT 93–100; BMI 41.3
[2018-11-18] MEDS: Scopolamine 1mg/72hr Patch 1 PATCH TRANSDERM. (06:35)
[2018-11-18] MEDS: Gabapentin 600 MG Tablet PO (06:36)
[2018-11-18] MEDS: Acetaminophen 500 MG Tablet 1000 MG PO ×3 (06:36→21:54)
[2018-11-18] MEDS: Magnesium Sulfate 4gm/100mL 4 GM/100 ML IV.SOLN. IV (06:50)
[2018-11-18 06:55] LABS: Bedside Glucose 117 mg/dL (70-110)
[2018-11-18] MEDS: Cefazolin 2 GM in 0.9% Normal Saline 100 ML IV ×3 (07:31→23:14)
--- NOTE | 2018-11-18 09:59 | OP.PCM_ITS ---
Report of Operation Date of Procedure: 11/18/18 Description of Surgical Findings:: Preoperative diagnosis: DJD right hip Postoperative diagnosis: Same Procedure: Right total hip arthroplasty Implants: Evant Accolade II stem size 6 132 degree neck angle 0 neck length 56 mm cup with 35 mm cancellous screw 36 mm ceramic head Anesthesia: General EBL: 300 cc Complications: None Condition: Stable to PACU Indication for procedure: This is a 63-year-old female who has had long-standing arthrosis of the hip who has failed conservative treatment and wished to undergo total hip arthroplasty. She did have significant shortening of the right lower extremity operatively .we did discuss operative versus nonoperative intervention including risks of bleeding, infection , nerve artery tissue damage, need for further surgery, fracture, leg length discrepancy dislocation blood clot and need for postoperative physical therapy and postoperative expectations. An informed consent was signed. Procedure: Patient was met in the preoperative holding area once again the operative extremity was identified by both patient and physician and was marked. Patient was met by anesthesia . A Cummins catheter was placed patient was then positioned in the lateral decubitus position on a well-padded pegboard with an axillary roll. All bony prominences were checked and padded. The patient was prepped and draped in the usual sterile fashion. A timeout was called to ensure the proper patient procedure and extremity were being contemplated. Anatomic landmarks were palpated and marked for a standard posterior lateral approach. A 10 blade scalpel was used to make a posterior incision through the skin and subcutaneous tissue. In retractors were used and electrocautery was used to maintain meticulous hemostasis and dissect full-thickness flaps until the gluteal fascia was reached. The gluteal fascia was incised in line with the gluteal fibers. The bursal tissue was then freed from the underside and a Charnley retractor was placed. The fat pad was elevated off of the external rotators with electrocautery and the external rotators were dissected off of the greater trochanter including the piriformis and were tagged with #1 Ethibond for later repair. The joint capsule opened with posterior trapdoor technique. The hip was surgically dislocated. Hohmann was placed around the lesser trochanter. A neck cutting guide was used to arun the neck with a Bovie and an oscillating saw was used complete the femoral neck cut. The femoral head was then removed and sized. We then turned our attention to the acetabulum. A Bovie was used to make a perforation in the anterior joint capsule and a pointed Hohmann was placed this was repeated in the 6 o'clock position a wide rod was placed there. With a long handled knife the labral and pulvinar tissue were removed. We then began sequential reaming until the appropriate size was achieved. We then fit the acetabular shell in place with good dynamite packing machine feeder to the acetabulum and proceeded to place a posterior superior screw by drilling first measuring and inserting the screw. We then inserted a trial liner. And turned our attention back to the femur at this point a femoral elevator was used. As well as a pointed wide Hohmann around the lesser trochanter and a Hohmann to help retract the gluteus medius. A box chisel was used to remove excess lateral neck followed by a canal finder and a lateralizing reamer. This was followed by sequential broaches. Attention was made of the version within the canal. Once the final broach was seated we then trialed reduced the hip it was determined that a 132 degree neck angle with a 0 offset was the appropriate size. We then checked ability with shuck testing as well as flexion and internal rotation then proceeded with hip extension and checked leg lengths at the knees and heels. although she still seemed short it was felt that any further lengthening would affect hip extension, this was secondary to the amount of shortening and contracture preoperative. she was completely relaxed with anesthesia at this ti me. At this point trials were removed. A posterior lipped liner was inserted to the cup. The femoral stem was inserted. We re-trialed and then proceeded to impact the femoral head onto the Diallo taper. We then surgically reduce the hip check stability again and leg lengths and were satisfied. Betadine rinse was allowed to sit for 5 minutes while everyone changed their gloves. Thorough irrigation was performed. Followed by closure of the external rotators with #2 FiberWire followed by closure of gluteal fascia with #1 Ethibond. 0 Vicryl fat stitches and 2-0 Vicryl subcutaneous stitches and abel in the skin. Dressing was applied in the form of Xeroform 4 x 4 ABD Ioband and an abduction pillow was placed. Patient tolerated the procedure well there was no intraoperative complications all counts were correct and the patient was brought back to the PACU in stable condition.
[2018-11-18 10:10] LABS: Bedside Glucose 160 mg/dL (70-110)
--- NOTE | 2018-11-18 10:10 | HP.PCM_ITS ---
History and Physical Date of Admission: 11/18/18 History and Physical 11/03/18 0236 MR#: [id number] Acct: [id number] Name: DAVID LOWE Rep #:[id number] : [id number] 63 From: Juan Nunes DO PCP: Fatoumata Rosen MD Status:PRE IN Location: [facility] [place] Intake Vital Signs 11/03/18 Body Mass Index (BMI) 36.6 Intake Visit Reasons: R. HIP Is patient in pain?: Yes Allergies sumatriptan [From Imitrex] Adverse Reaction (Verified 09/30/18 10:22) Vomiting sumatriptan succinate [From Imitrex] Adverse Reaction (Verified 09/30/18 10:22) Vomiting BEE STING Allergy (Uncoded 09/13/18 12:43) Anaphylaxis PAPER TAPE Adverse Reaction (Uncoded 09/13/18 12:43) Rash ON LICENSE OF [facility] Social History (Updated 11/03/18 @ 14:36 by CECILIA Santoro) Smoking Status: Former smoker HPI R. HIP : Surgical H&P: Yes Details: Parts of this documentation were recorded by a scribe, this documentation accurately reflects the service provided and the decisions made by me, CECILIA Santoro 11/03/18 9718. DIONE LOWE is a 63 year old F here today for right hip pain. She continues to have pain with sitting and walking, uses a walker at home all the time. Her complaint is that she has groin pain and buttock pain. She is here today with her aid that helps at home. She denies smoking though there is still a smoke odor. Denies numbness, tingling or other associated symptoms. Ortho Exam Right Hip Skin: No Ecchymosis, No soft tissue swelling Special Tests: Yes pain with log roll, No TTP Greater Troch, Yes C sign Homans Sign: No HIP: Patient has no abnormality on inspection of the visible skin (no erythema, inflammation, or open areas). Patient does have evident decreased motion to the left hip especially with internal and external rotation. Patient has approximately 5 degrees of internal rotation approximately 30 degrees of external rotation. Both of these movements do cause pain. She also has some pain with logroll. Pains are located primarily in the anterior groin area. Patient does have normal sensation to light touch. She does have palpable pu lses (slightly diminished). Assessment & Plan Problems 1. Arthritis of right hip M16.11 2. Right hip pain M25.551 Plan Patient presented to the office today to sign consent again for right total hip arthroplasty. This had previously been discussed in depth with a surgeon at a previous visit. At that time she was currently smoking and was told she needed to quit before the operation could occur. She presents today after having successfully quit smoking and still wanting to proceed with total hip arthroplasty due to chronic pain and decreased functioning. Today we spent a lot of time discussing her medical history which includes a history of seizures, diabetes, COPD (chronic tobacco use), and hypertension. We did discuss the risks that these medical problems can play on complication rates. It has been over a year since she has had a seizure, her diabetes is currently well controlled with an A1c under 6, and it has been many years since she has had an exacerbation of her COPD. We discussed the possibility of increased seizure activity due to stress of surgery and the concern being that she could fall because dislocation or even fracture of the proximal femur. We will require surgical consent from her PCP and neurologist before proceeding. We again did discuss the general risks and benefits of procedure which patient acknowledges verbally. Dr. Nunes also came into the room to discuss the procedure, reiterated the risks and benefits, and answer any questions. Once completed consent was signed in office today. We discussed that if surgical consent is not received from her specialist within 30 days that we will need to re-update consent forms. Patient already was given surgical cleansed to be used the night before and morning of. We also did discuss preanesthesia testing as well as surgical times/scheduling. Patient can notify the office with any other questions in the meantime. Patient has no other questions at this time today. This note was generated with [employer] software. It may contain incorrect words, spelling, and punctuation that were not noted in checking the note before signing. Coding Level of Care Code Off vis,est,level 3 Diagnoses Arthritis of right hip M16.11 Right hip pain M25.551 11/03/18 7046 <Electronically signed by Pastor BROOKS> Date _ Pastor Yates CECILIA 11/12/18 1631 <Electronically signed by Juan rodríguez DO> Date: Time: __ Juan Nunes DO CC: Fatoumata Rosen MD; Juan Nunes DO ~ Date Dictated: 11/03/18 0236 Date Transcribed: 11/11/18 1543 Miter Sawyer: Signed I have re-examined the patient. There are no clinical changes since date of exam
--- NOTE | 2018-11-18 10:10 | RAD_ITS ---
STUDY: X-RAY - PELVIS AND RIGHT HIP REASON FOR EXAM: Female, 63 years old. Postop from hip replacement surgery TECHNIQUE: 2 views of the pelvis and hip. COMPARISON: 09/13/2018 FINDINGS: Patient is status post right hip replacement surgery. Components demonstrate anatomic alignment. No plain film evidence of postoperative complication. Normal postoperative soft tissue swelling and subcutaneous emphysema. RAD/Hip Min 2 Views (Portable) IMPRESSION: Replaced right hip joint demonstrates anatomic alignment. No plain film evidence of postoperative complication Electronically Signed: Samson Wheat MD at 10:29 EDT , Service support ,
[2018-11-18] MEDS: Lactated Ringers 1,000 ML 125 ML IV ×2 (12:00→20:31)
[2018-11-18] MEDS: Venlafaxine HCl 75 MG Tablet PO (14:46)
[2018-11-18] MEDS: buPROPion (XL) 300 MG TABLET.XL PO (14:46)
[2018-11-18] MEDS: oxyCODONE 5 MG Tablet PO ×3 (14:49→23:22)
--- NOTE | 2018-11-18 15:17 | CASEMGMT ---
RN CIARA NOTE: To room to talk with pt. Introduced self and role of ALBERTO URBINA. Discussed discharge planning with pt. Pt stated, I should go to a snf. ELÍAS Casper, made aware of pt's wishes. Pt did confirm that her preferred pharmacy is [email or web address]. She also confirms that she has a LW and HCPOA and states that her daughter, Opal Trejo is primary HCPOA and son, Nick, is alternative HCPOA. Arlyn DAVILAN ALBERTO URBINA
[2018-11-18] MEDS: Phenytoin Na 100 MG Capsule 200 MG PO (16:24)
[2018-11-18] MEDS: 0.9% NaCl Peripheral Flush Adult/Peds IV ×2 (16:25→20:25)
[2018-11-18] MEDS: Divalproex (ER) 250 MG Tablet 500 MG PO (16:25)
[2018-11-18] MEDS: HYDROmorphone 1 MG/ML Syringe 0.5 MG IV (16:29)
--- NOTE | 2018-11-18 16:35 | CASEMGMT ---
Social Work Note SW received referral for SNF placement. Pt just had surgery today. SW to follow up with pt tomorrow to confirm discharge plans. Nicole Rascon UNIFORMER, BENCH ASSEMBLER
[2018-11-18] MEDS: Ketorolac 15 MG/ML Vial IV (20:25)
[2018-11-18] MEDS: Ziprasidone HCl 20 MG Capsule 80 MG PO (21:54)
[2018-11-18] MEDS: Mirtazapine 15 MG Tablet PO (21:55)
[2018-11-18] MEDS: Senna/Docusate Sodium 1 Tablet 2 TABLET PO (21:55)
[2018-11-18] MEDS: clonazePAM 0.5 MG Tablet PO (21:55)
[2018-11-18] MEDS: Topiramate 200 MG Tablet PO (21:55)
[2018-11-18] MEDS: APIXABAN 2.5 MG TABLET PO (21:55)
[2018-11-18] MEDS: Pravastatin 80 MG Tablet PO (21:55)
[2018-11-19] VITALS (7 sets, daily range): BP systolic 77–128; BP diastolic 45–61; PULSE 96–120; RESP 16; TEMP 37.2–38.5; O2SAT 92–97
[2018-11-19] MEDS: 0.9% NaCl Peripheral Flush Adult/Peds IV (03:27)
[2018-11-19] MEDS: Ketorolac 15 MG/ML Vial IV (03:27)
[2018-11-19 05:43] LABS: Hematocrit 34.9 % (37-47); Hemoglobin 11.6 g/dL (12.0-15.0); Mean Corp Hgb Conc 33.2 g/dL (32-36); Mean Corpuscular Volume 96.4 fL (81-99); Platelet Count 216 K/mm3 (150-450); RBC Distribution Width CV 12.7 % (11.6-14.6); RBC Distribution Width SD 44.8 fl (35.1-43.9); Red Blood Count 3.62 M/mm3 (4.2-5.4); White Blood Count 13.4 K/mm3 (4.4-11.0)
[2018-11-19] MEDS: Acetaminophen 500 MG Tablet 1000 MG PO ×2 (05:48→22:55)
[2018-11-19 06:08] LABS: Anion Gap 5 (5-15); BUN 10 mg/dL (7-18); BUN/Creat Ratio 10.5 RATIO (10-20); Chloride 107 mmol/L (98-107); Creatinine, Serum 0.96 mg/dL (0.55-1.02); EST Glomerular Filtration Rate 63 mL/min (>60); Est Glom Filt Rate - Afr Amer 76 mL/min (>60); Estimated Creatinine Clearance 48.06 ml/min; Glucose 140 mg/dL (74-106); Potassium 3.8 mmol/L (3.5-5.1); Sodium Level 137 mmol/L (136-145)
--- NOTE | 2018-11-19 07:59 | EKG12_ITS ---
Test Reason : CP Blood Pressure : / mmHG Vent. Rate : 106 BPM Atrial Rate : 106 BPM P-R Int : 188 ms QRS Dur : 070 ms QT Int : 320 ms P-R-T Axes : 047 008 021 degrees QTc Int : 425 ms Sinus tachycardia Otherwise normal ECG When compared with ECG of 27-JUL-2018 02:14, No significant change was found Confirmed by ALBINO ROJAS, MOHAN ([id number]), food expeditor HERMAN DOWNS ([id number]) on 11/21/2018 9:53:48 AM Referred By: Juan Nunes Confirmed By:FIONA POSADA MD
--- NOTE | 2018-11-19 08:13 | NURSING ---
PT VITALS 100.7, BP 77/50, HR 120, SATS 94 % ON RA. PT C/O CHEST PRESSURE. NOTIFIED DR CARDENAS, HOSPITALIST CONSULT MADE. NOTIFIED DR SULLIVAN VITALS, EKG, AND NS BOLUS ORDERED.
[2018-11-19] MEDS: Phenytoin Na 100 MG Capsule 200 MG PO ×2 (08:19→17:31)
[2018-11-19] MEDS: Divalproex (ER) 250 MG Tablet 500 MG PO ×2 (08:19→17:30)
[2018-11-19] MEDS: Venlafaxine HCl 75 MG Tablet PO (08:20)
[2018-11-19] MEDS: APIXABAN 2.5 MG TABLET PO ×2 (08:20→22:56)
[2018-11-19] MEDS: Magnesium Oxide 400 MG Tablet PO (08:21)
[2018-11-19] MEDS: buPROPion (XL) 300 MG TABLET.XL PO (08:21)
[2018-11-19] MEDS: Ziprasidone HCl 20 MG Capsule 80 MG PO ×2 (08:21→22:56)
[2018-11-19] MEDS: Topiramate 200 MG Tablet PO ×2 (08:21→22:55)
[2018-11-19] MEDS: Senna/Docusate Sodium 1 Tablet 2 TABLET PO ×2 (08:21→22:55)
[2018-11-19] MEDS: clonazePAM 0.5 MG Tablet PO ×2 (08:22→22:55)
--- NOTE | 2018-11-19 08:26 | RAD_ITS ---
STUDY: X-RAY CHEST REASON FOR EXAM: Female, 63 years old. Chest pain, recent hip replacement TECHNIQUE: Single AP portable view of the chest. COMPARISON: 05/21/2017 FINDINGS: There is elevation of the right hemidiaphragm new since the previous study perhaps due to technique. Lungs are otherwise expanded. There is lingular atelectasis. There is no demonstrated pleural abnormality. Normal size heart. Normal mediastinum and ita. Normal visualized pulmonary arteries. Normal visualized aortic arch and descending thoracic aorta. There are diffuse degenerative changes of the visualized thoracic spine. There is degenerative osteoarthritis of the bilateral shoulders. There is no demonstrated abnormality of the visualized soft tissue structures of the upper abdomen. RAD/Chest 1 View (Portable) IMPRESSION: Lingular atelectasis, no demonstrated infiltrate or effusion Elevation of the right hemidiaphragm new since the previous study, may be related to previous surgery and radiographic technique Degenerative bony changes Electronically Signed: Samson Wheat MD at 9:11 EDT , Service support ,
[2018-11-19 09:18] LABS: Color, Urine Yellow (Yellow); Glucose, Dipstick Normal (Normal); Ketone-Dipstick Negative (Negative); Leukocyte Esterase-Dipstick 25 /ul (Negative); Nitrite-Dipstick Negative (Negative); Occult Blood-Urine 50 /ul (Negative); Protein-Dipstick Negative (Negative); Urine Bilirubin Dipstick Negative (Negative); Urine Clarity Sl. Cloudy (Clear); Urine Urobilinogen Normal (Normal)
--- NOTE | 2018-11-19 09:23 | NURSING ---
straight cath done per dr orders. vitals 100.2, 108/52, 101. 97% ra. txed dr stubbs vitals. and result of ekg
--- NOTE | 2018-11-19 11:23 | PCM.PN.ORT ---
Subjective: Plan of pain however when received oxycodone had hallucinations last evening no chest pain now she did have some chest tightness which was evaluated by the hospitalist and EKG was normal no shortness of breath abdominal pain - Physical Exam General: Alert, Oriented x3, No apparent distress Extremities: - - Dressing clean dry intact compartment soft neurovascular intact right lower extremity Vital Signs Temp Pulse Resp BP Pulse Ox 100.2 F H 101 H 16 108/52 L 97 11/19/18 09:00 11/19/18 09:00 11/19/18 09:00 11/19/18 09:00 11/19/18 09:00 Oxygen Flow Rate (L/min) 2 Oxygen Delivery Method Room Air Weight: 226 lb 3.108 oz Body Mass Index (BMI) 41.3 Finger Stick Blood Glucose 160 Intake and Output for Last 24 Hours 11/17/18 11/18/18 11/19/18 23:59 23:59 23:59 Intake Total 3323 / 3323 838 / 838 Output Total 1900 / 1900 625 / 625 Balance 1423 / 1423 213 / 213 Microbiology Past 72 Hours 11/14/18 15:45 Nasal Screen MRSA/MSSA - Final Swab (Method) Laboratory Tests Past 24 Hrs 11/19/18 11/19/18 11/19/18 05:36 05:36 08:55 WBC 13.4 H RBC 3.62 L Hgb 11.6 L Hct 34.9 L MCV 96.4 MCH 32.0 MCHC 33.2 RDW Std Deviation 44.8 H RDW Coeff of Lenora 12.7 Plt Count 216 MPV 11.0 Sodium 137 Potassium 3.8 Chloride 107 Carbon Dioxide 25.0 Anion Gap 5 BUN 10 Creatinine 0.96 Estim Creat Clear Calc 48.06 Est GFR (MDRD) Af Amer 76 Est GFR (MDRD) Non-Af 63 BUN/Creatinine Ratio 10.5 Glucose 140 H Calcium 8.0 L Urine Color Yellow Urine Clarity Sl. Cloudy Urine pH 6.0 Ur Specific [place] 1.010 Urine Protein Negative Urine Glucose (UA) Normal Urine Ketones Negative Urine Occult Blood 50 H Urine Nitrite Negative Urine Bilirubin Negative Urine Urobilinogen Normal Ur Leukocyte Esterase 25 H Medical Necessity - Tobacco Use Smoking Status: Former smoker Tobacco Use: Non-smoker Assessment/Plan All Active Problems Seizure (Acute) Encephalopathy (Acute) Accident due to mechanical fall without injury (Acute) Anxiety and depression (Acute) Atypical right-sided chest pain (Acute) Stop day #1 right total hip arthroplasty. Complain of pain however hallucinations with oxycodone will switch to Ultram and Tylenol Chest tightness has resolved DC planning rehab tomorrow Steve castillo
[2018-11-19] MEDS: traMADol 50 MG Tablet PO (12:02)
[2018-11-19 12:30] LABS: Bacteria 0 SEEN /hpf (None Seen); Mucous, Urine 0 SEEN /hpf (<or=2+)
[2018-11-19 12:31] LABS: Red Blood Cells-Urine 0-5 SEEN /hpf (0-5); Squamous Epithelial Cells - UA 0-5 SEEN /hpf (5-10); White Blood Cells 0-5 SEEN /hpf (0-5)
--- NOTE | 2018-11-19 13:48 | PN_ITS ---
Subjective: Patient seen and examined. Complains of mild dizziness following ambulating to restroom. Patient reports mild dyspnea when ambulating. Otherwise denies significant shortness of breath. Denies chest pain. Complains of postoperative pain status post right total hip arthroplasty yesterday. Hospitalist consulted for medical management given hypotension, fever and leukocytosis. - Physical Exam General: Alert, Oriented x3, Cooperative HEENT: Atraumatic, PERRLA, EOMI, Normocephalic Neck: Supple, No JVD, Negative Carotid Bruits Lungs: Clear to auscultation, Diminished Cardiovascular: Regular Rhythm, Normal S1, Normal S2, No murmurs, Tachycardic Abdomen: Bowel Sounds Present, Soft, Non Tender, Non-Distended, Obese Extremities: No clubbing, No cyanosis, No edema, Capillary Refill Less than 3 Seconds Skin: No rashes, No breakdown Musculoskeletal: No Tenderness to Palpation of Joints or Extremities Neurological: Cranial nerves II-XII grossly intact, Neuro grossly intact Psych/Mental Status: Appropriate, Flat Affect Vital Signs Temp Pulse Resp BP Pulse Ox 99 F 101 H 16 115/49 L 96 11/19/18 11:58 11/19/18 11:58 11/19/18 11:58 11/19/18 11:58 11/19/18 11:58 Oxygen Flow Rate (L/min) 2 Oxygen Delivery Method Room Air Weight: 226 lb 3.108 oz Body Mass Index (BMI) 41.3 Finger Stick Blood Glucose 160 Intake and Output for Last 24 Hours 11/17/18 11/18/18 11/19/18 23:59 23:59 23:59 Intake Total 3323 / 3323 1991 Output Total 1900 / 1900 775 / 775 Balance 1423 / 1423 1217 / 1217 Microbiology Past 72 Hours 11/14/18 15:45 Nasal Screen MRSA/MSSA - Final Swab (Method) Laboratory Tests Past 24 Hrs 11/19/18 11/19/18 11/19/18 05:36 05:36 08:55 WBC 13.4 H RBC 3.62 L Hgb 11.6 L Hct 34.9 L MCV 96.4 MCH 32.0 MCHC 33.2 RDW Std Deviation 44.8 H RDW Coeff of Lenora 12.7 Plt Count 216 MPV 11.0 Sodium 137 Potassium 3.8 Chloride 107 Carbon Dioxide 25.0 Anion Gap 5 BUN 10 Creatinine 0.96 Estim Creat Clear Calc 48.06 Est GFR (MDRD) Af Amer 76 Est GFR (MDRD) Non-Af 63 BUN/Creatinine Ratio 10.5 Glucose 140 H Calcium 8.0 L Urine Color Yellow Urine Clarity Sl. Cloudy Urine pH 6.0 Ur Specific [place] 1.010 Urine Protein Negative Urine Glucose (UA) Normal Urine Ketones Negative Urine Occult Blood 50 H Urine Nitrite Negative Urine Bilirubin Negative Urine Urobilinogen Normal Ur Leukocyte Esterase 25 H Urine RBC Urine WBC Ur Squamous Epith Cells Urine Bacteria Urine Mucus 11/19/18 08:55 WBC RBC Hgb Hct MCV MCH MCHC RDW Std Deviation RDW Coeff of Lenora Plt Count MPV Sodium Potassium Chloride Carbon Dioxide Anion Gap BUN Creatinine Estim Creat Clear Calc Est GFR (MDRD) Af Amer Est GFR (MDRD) Non-Af BUN/Creatinine Ratio Glucose Calcium Urine Color Urine Clarity Urine pH Ur Specific [place] Urine Protein Urine Glucose (UA) Urine Ketones Urine Occult Blood Urine Nitrite Urine Bilirubin Urine Urobilinogen Ur Leukocyte Esterase Urine RBC 0-5 SEEN Urine WBC 0-5 SEEN Ur Squamous Epith Cells 0-5 SEEN Urine Bacteria 0 SEEN Urine Mucus 0 SEEN Medical Necessity - Tobacco Use Smoking Status: Former smoker Tobacco Use: Non-smoker Assessment/Plan All Active Problems Seizure (Acute) Encephalopathy (Acute) Accident due to mechanical fall without injury (Acute) Anxiety and depression (Acute) Atypical right-sided chest pain (Acute) 1. Hypotension, fever, tachycardia- rule out sepsis. No evidence of infectious etiology. Chest x-ray demonstrating lingular atelectasis, no infiltrate or effusion. Urinalysis unremarkable. Postoperative dressing intact without drainage or surrounding erythema. Hypotension improved with IV fluids. PRN Tylenol. Continue to monitor. 2. Status post right hip arthroplasty 11/18/[address] Nunes-management per ortho. Rehab at [place]. 3. Chronic COPD-no acute exacerbation. As needed albuterol aerosol. 4. Hyperlipidemia-continue statin regimen. 5. Tobacco dependence-encouraged smoking cessation. 6. Anxiety/depression/schizophrenia-continue home bupropion, clonazepam, Remeron, Effexor, Geodon regimen. 7. History of seizure-continue home Dilantin, Depakote regimen. 8. Morbid obesity-encouraged diet lifestyle modifications. Nutrition consult. DVT prophylaxis- eliquis This patient was seen by VALDEMAR Verduzco under the supervision of Nesha.
--- NOTE | 2018-11-19 15:07 | CASEMGMT ---
Social Work Note SW met with pt to confirm discharge plans. Pt is alert and orientated x3. Pt confirms that she would like to discharge to SNF and requests W. SW explained referral process and Medicare guidelines. SW faxed referral to [facility]. SW placed a call to Fozia at [facility] and left her a message informing her of referral. SW waiting for call back. SW placed transfer to extended care facility on pt's chart. Plan: [facility] pending acceptance Nicole Rascon EVALUATOR, ADOLESCENT COUNSELOR
[2018-11-19] MEDS: Lactated Ringers 1,000 ML 125 ML IV (16:12)
[2018-11-19] MEDS: oxyCODONE 5 MG Tablet PO (20:37)
[2018-11-19] MEDS: Pravastatin 80 MG Tablet PO (22:56)
[2018-11-19] MEDS: Mirtazapine 15 MG Tablet PO (22:56)
[2018-11-20 02:30] VITALS: BP 114/62; PULSE 108; RESP 18; TEMP 37; O2SAT 94
[2018-11-20 05:28] LABS: Hematocrit 32.1 % (37-47); Hemoglobin 10.9 g/dL (12.0-15.0); Mean Corpuscular Hgb 32.2 pg (27.0-32.0); Mean Corpuscular Volume 94.7 fL (81-99); Platelet Count 194 K/mm3 (150-450); RBC Distribution Width CV 12.8 % (11.6-14.6); RBC Distribution Width SD 44.7 fl (35.1-43.9); Red Blood Count 3.39 M/mm3 (4.2-5.4); White Blood Count 15.5 K/mm3 (4.4-11.0)
[2018-11-20] MEDS: Acetaminophen 500 MG Tablet 1000 MG PO ×3 (05:39→21:11)
[2018-11-20 08:12] VITALS: BP 128/58; PULSE 88; RESP 16; TEMP 36.6; O2SAT 98
--- NOTE | 2018-11-20 08:26 | DCINST_ITS ---
Discharge Diet: No Restrictions Discharge Activity: - - Use assistive device. Hip precautions for total hip replacement as reviewed in hospital Weight Bearing Status: Weight bearing as tolerated, Full weight bearing Call your doctor if you observe: Fever of 101 or Higher, Shortness of breath, Chest pain Change Dressing in (Days):: 1 - should be changed daily after daily shower. Additional Dressing/Incision Instructions:: change daily with ABD and silk tape after shower. Additional Instructions: Begin daily showering warm water antibacterial soap postop day #3 and then daily. Change dressing daily until no drainage for 2 consecutive days then may leave open to air. Follow hip precautions as reviewed by hospital physical therapist. Call with any concerns Allergies/Adverse Reactions: Allergies sumatriptan [From Imitrex] Adverse Reaction (Verified 11/14/18 15:01) Vomiting sumatriptan succinate [From Imitrex] Adverse Reaction (Verified 11/14/18 15:01) Vomiting BEE STING Allergy (Uncoded 11/14/18 15:01) Anaphylaxis PAPER TAPE Adverse Reaction (Uncoded 11/14/18 15:01) Rash Medications to take at Discharge Ziprasidone HCl [Geodon] 80 mg PO BID 07/11/13 Pravastatin [Pravachol] 80 mg PO QHS 09/07/15 Phenytoin Sodium Extended [Dilantin] 200 mg PO BID 12/02/17 Potassium Chloride 10 meq PO BID 12/02/17 Albuterol Inhaler [Ventolin Hfa] 2 puff INHALATION Q6H PRN PRN 02/20/18 Hydroxyzine Pamoate [Vistaril] 100 mg PO TID PRN PRN 02/20/18 Bupropion HCl [Bupropion Xl] 300 mg PO DAILY 11/14/18 Calcium Carbonate/Vitamin D3 [Oyster Shell 500-Vit D3 200 Tb] 1 ea PO DAILY 11/14/18 Clonazepam 0.5 mg PO BID 11/14/18 Divalproex (ER) [Depakote ER] 500 mg PO BID 11/14/18 Magnesium Oxide [Magnesium] 400 mg PO DAILY 11/14/18 Mirtazapine [Remeron] 15 mg PO QHS 11/14/18 Topiramate 200 mg PO BID 11/14/18 Venlafaxine HCl [Effexor] 75 mg PO DAILY 11/14/18 Acetaminophen [Tylenol] 1,000 mg PO Q8 tablet 11/20/18 Apixaban [Eliquis] 2.5 mg PO BID 21 Days #42 tab 11/20/18 traMADol [Ultram] 50 - 100 mg PO TID PRN PRN #60 tab 11/20/18 The following prescriptions were given: Apixaban [Eliquis] 2.5 mg PO BID 21 Days #42 tab Prescription Printed traMADol [Ultram] 50 - 100 mg PO TID PRN PRN #60 tab PRN Reason: Moderate Pain (4-5/10) Prescription Printed Primary Care Physician: Fatoumata Rosen MD [Primary Care Provider] - Test Results: Test results from this visit will be discussed in further detail at your follow- up appointment, if applicable. Please Follow Up With: Juan Nunes DO - 2 weeks
--- NOTE | 2018-11-20 08:29 | DS.PCM_ITS ---
Discharge Date and Diagnosis Date of Admission: 11/18/18 Date of Discharge: 11/20/18 - Secondary Discharge Diagnosis Chronic Problems Schizophrenia (Chronic) COPD (chronic obstructive pulmonary disease) (Chronic) Tobacco use (Chronic) Morbid obesity (Chronic) Tobacco user (Chronic) Spondylosis of lumbar region without myelopathy or radiculopathy (Chronic) Diabetes (Chronic) Legal blindness (Chronic) HTN (hypertension) (Chronic) MVP (mitral valve prolapse) (Chronic) Hospital Course and Treatment Operations: None Summary of Care Provided: The patient is a 63 year old F patient with long-standing history of severe right hip DJD who is failed conservative treatment. Patient underwent right total hip arthroplasty day of admission. Patient did receive pre-and postoperative antibiotics which were discontinued within 23 hours postoperatively. Patient did receive spinal anesthesia and postoperatively her pain was controlled with both IV and p.o. pain medication. She was having hallucinations on oxycodone was switched to Ultram with less side effect . patient did receive 2 g of tranexamic acid. Her hemoglobin and hematocrit were monitored postoperatively as well as her vital signs and she did not require any blood transfusion. she did have a og catheter placed which was removed in the morning of POD #1 . Dressing will be changed daily beginning postop day #3 before shower will be removed and replaced after she was started on Eliquis 2.5 mg twice daily postop day #1 for which she will continue for 3 weeks post hospital discharge . Patient was seen by physical therapy was ambulating the halls well. patient will be discharged rehab facility for continued physical therapy will follow-up in the office in 2 weeks. No intrahospital complications. - Physical Exam Vital Signs Temp Pulse Resp BP Pulse Ox 97.9 F 88 16 128/58 H 98 11/20/18 08:12 11/20/18 08:12 11/20/18 08:12 11/20/18 08:12 11/20/18 08:12 Oxygen Flow Rate (L/min) 2 Oxygen Delivery Method Room Air Weight: 226 lb 3.108 oz Body Mass Index (BMI) 41.3 Finger Stick Blood Glucose 160 Intake and Output for Last 24 Hours 11/18/18 11/19/18 11/20/18 23:59 23:59 23:59 Intake Total 3323 / 3323 3365 / 3565 300 / 300 Output Total 1900 / 1900 1175 / 2275 1400 / 1400 Balance 1423 / 1423 2190 / 1290 -1100 / -1100 Laboratory Tests Past 24 Hrs 11/19/18 11/19/18 11/20/18 08:55 08:55 05:20 WBC 15.5 H RBC 3.39 L Hgb 10.9 L Hct 32.1 L MCV 94.7 MCH 32.2 H MCHC 34.0 RDW Std Deviation 44.7 H RDW Coeff of Lenora 12.8 Plt Count 194 MPV 11.0 Urine Color Yellow Urine Clarity Sl. Cloudy Urine pH 6.0 Ur Specific [place] 1.010 Urine Protein Negative Urine Glucose (UA) Normal Urine Ketones Negative Urine Occult Blood 50 H Urine Nitrite Negative Urine Bilirubin Negative Urine Urobilinogen Normal Ur Leukocyte Esterase 25 H Urine RBC 0-5 SEEN Urine WBC 0-5 SEEN Ur Squamous Epith Cells 0-5 SEEN Urine Bacteria 0 SEEN Urine Mucus 0 SEEN Discharge Diet: No Restrictions Discharge Activity: - - Use assistive device. Hip precautions for total hip replacement as reviewed in hospital Weight Bearing Status: Weight bearing as tolerated, Full weight bearing Call your doctor if you observe: Fever of 101 or Higher, Shortness of breath, Chest pain Change Dressing in (Days):: 1 - should be changed daily after daily shower. Additional Dressing/Incision Instructions:: change daily with ABD and silk tape after shower. Home Medications: Medications to take at Discharge Ziprasidone HCl [Geodon] 80 mg PO BID 07/11/13 Pravastatin [Pravachol] 80 mg PO QHS 09/07/15 Phenytoin Sodium Extended [Dilantin] 200 mg PO BID 12/02/17 Potassium Chloride 10 meq PO BID 12/02/17 Albuterol Inhaler [Ventolin Hfa] 2 puff INHALATION Q6H PRN PRN 02/20/18 Hydroxyzine Pamoate [Vistaril] 100 mg PO TID PRN PRN 02/20/18 Bupropion HCl [Bupropion Xl] 300 mg PO DAILY 11/14/18 Calcium Carbonate/Vitamin D3 [Oyster Shell 500-Vit D3 200 Tb] 1 ea PO DAILY 11/14/18 Clonazepam 0.5 mg PO BID 11/14/18 Divalproex (ER) [Depakote ER] 500 mg PO BID 11/14/18 Magnesium Oxide [Magnesium] 400 mg PO DAILY 11/14/18 Mirtazapine [Remeron] 15 mg PO QHS 11/14/18 Topiramate 200 mg PO BID 11/14/18 Venlafaxine HCl [Effexor] 75 mg PO DAILY 11/14/18 Acetaminophen [Tylenol] 1,000 mg PO Q8 tablet 11/20/18 Apixaban [Eliquis] 2.5 mg PO BID 21 Days #42 tab 11/20/18 traMADol [Ultram] 50 - 100 mg PO TID PRN PRN #60 tab 11/20/18 Following Prescrptions Were Given to Patient: Apixaban [Eliquis] 2.5 mg PO BID 21 Days #42 tab Prescription Printed traMADol [Ultram] 50 - 100 mg PO TID PRN PRN #60 tab PRN Reason: Moderate Pain (4-5/10) Prescription Printed Primary Care Physician: Fatoumata Rosen MD [Primary Care Provider] - Please Follow Up With: Juan Nunes DO - 2 weeks Additional Instructions: Begin daily showering warm water antibacterial soap postop day #3 and then daily. Change dressing daily until no drainage for 2 consecutive days then may leave open to air. Follow hip precautions as reviewed by hospital physical therapist. Call with any concerns Medical Necessity - Tobacco Use Smoking Status: Former smoker Tobacco Use: Non-smoker Meaningful Use Info Meaningful Use Diagnoses (Choose all that apply): None applicable
[2018-11-20] MEDS: Divalproex (ER) 250 MG Tablet 500 MG PO ×2 (08:32→17:13)
[2018-11-20] MEDS: Phenytoin Na 100 MG Capsule 200 MG PO ×2 (08:32→17:13)
[2018-11-20] MEDS: Ziprasidone HCl 20 MG Capsule 80 MG PO ×2 (08:33→21:12)
[2018-11-20] MEDS: APIXABAN 2.5 MG TABLET PO ×2 (08:34→21:12)
[2018-11-20] MEDS: Senna/Docusate Sodium 1 Tablet 2 TABLET PO ×2 (08:35→21:11)
[2018-11-20] MEDS: Magnesium Oxide 400 MG Tablet PO (08:35)
[2018-11-20] MEDS: buPROPion (XL) 300 MG TABLET.XL PO (08:36)
[2018-11-20] MEDS: Topiramate 200 MG Tablet PO ×2 (08:36→21:11)
[2018-11-20] MEDS: clonazePAM 0.5 MG Tablet PO ×2 (08:38→21:11)
--- NOTE | 2018-11-20 11:56 | CASEMGMT ---
Social Work Note SW received call from Fozia at [facility] stating [facility] is able to accept pt Saturday. Pt updated. Plan: [facility] tomorrow Nicole Rascon HYDROGRAPHICAL TECHNICAL OFFICER, BOTTLE HOUSE CLEANERS SUPERVISOR
--- NOTE | 2018-11-20 12:23 | CASEMGMT ---
ALBERTO CM NOTE: Spoke with Dr Jeffries. WBC remains elevated. He states no order for antibiotics at this time, but he is continuing to monitor pt. Call placed to Dr Summers, covering for Dr Piaz. Order for discharge has been cancelled. Arlyn BSN RN CM
--- NOTE | 2018-11-20 12:39 | PCM.PROGNOTE ---
Subjective: Pt complains that she does not feel well. She states she is weak, nauseous, constipated, has dysuria, has SOB and cough, has fever/chills. She does not appear to be in any acute distress and her exam is benign. She is waiting for SNF placement. - Physical Exam General: Alert, Oriented x3, Cooperative HEENT: Atraumatic, PERRLA, EOMI, Normocephalic Neck: Supple, No JVD, Negative Carotid Bruits Lungs: Clear to auscultation, Normal air movement Cardiovascular: Regular rate, No murmurs Abdomen: Bowel Sounds Present, Soft, Non Tender Extremities: No edema, Capillary Refill Less than 3 Seconds Skin: No rashes, No breakdown Musculoskeletal: No Tenderness to Palpation of Joints or Extremities Neurological: Cranial nerves II-XII grossly intact Psych/Mental Status: Flat Affect, Alert and oriented to time, place, person, mood and affect Vital Signs Temp Pulse Resp BP Pulse Ox 97.9 F 88 16 128/58 H 98 11/20/18 08:12 11/20/18 08:12 11/20/18 08:12 11/20/18 08:12 11/20/18 08:12 Oxygen Flow Rate (L/min) 2 Oxygen Delivery Method Room Air Weight: 226 lb 3.108 oz Body Mass Index (BMI) 41.3 Finger Stick Blood Glucose 160 Intake and Output for Last 24 Hours 11/18/18 11/19/18 11/20/18 23:59 23:59 23:59 Intake Total 3323 / 3323 3365 / 3565 300 / 300 Output Total 1900 / 1900 1175 / 2275 1400 / 1400 Balance 1423 / 1423 2190 / 1290 -1100 / -1100 Microbiology Past 72 Hours 11/19/18 08:55 Urine Culture - Preliminary Urine, Catheterized Culture exhibits no growth. Laboratory Tests Past 24 Hrs 11/20/18 05:20 WBC 15.5 H RBC 3.39 L Hgb 10.9 L Hct 32.1 L MCV 94.7 MCH 32.2 H MCHC 34.0 RDW Std Deviation 44.7 H RDW Coeff of Lenora 12.8 Plt Count 194 MPV 11.0 Medical Necessity - Tobacco Use Smoking Status: Former smoker Tobacco Use: Non-smoker Assessment/Plan All Active Problems Seizure (Acute) Encephalopathy (Acute) Accident due to mechanical fall without injury (Acute) Anxiety and depression (Acute) Atypical right-sided chest pain (Acute) 1. Leukocytosis/fever - suspect 2/2 surgery, atelectasis. No acute infectious etiology present. Exam is benign. ROS is positive. No specific symptoms. CXR and UA negative. Defer abx. Encouraged spirometer use - she has not used it yet. She has no hypoxia. Atelectasis on CXR. 2. Anemia - recheck in AM. Likely 2/2 IV fluids and surgical loss. 3. s/p right hip arthroplasty 11/18/2018. Care as per ortho 4. Chronic COPD - no exacerbation. prn albuterol 5. Tobacco abuse 6. Anx/Dep/Schizophrenia - continue home meds. 7. Hx Seizure - dilantin/depakote 8. Morbid obesity - dietary consult. DVT ppx: waqar HOLLIDAY Planning: To rehab when accepted. This patient was seen by Guanakito Lomeli PA-C under the supervision of Doctor Jeffries.
--- NOTE | 2018-11-20 13:58 | CASEMGMT ---
Social Work Note ELÍAS received call from pt's CM at [facility]. ELÍAS updated Rowena that the plan is for pt to discharge to [facility] tomorrow. Rowena just asks to be updated when pt is discharged. Rowena ([phone]). Nicole Rascon BULL CHAIN OPERATOR, SHOP TECH
[2018-11-20 15:07] VITALS: BP 126/62; PULSE 102; RESP 16; TEMP 37.4; O2SAT 96
[2018-11-20] MEDS: Venlafaxine HCl 75 MG Tablet PO (15:23)
[2018-11-20] MEDS: traMADol 50 MG Tablet PO (17:13)
[2018-11-20 21:02] VITALS: BP 123/68; PULSE 106; RESP 18; TEMP 37.7; O2SAT 97
[2018-11-20] MEDS: Mirtazapine 15 MG Tablet PO (21:11)
[2018-11-20] MEDS: Pravastatin 80 MG Tablet PO (21:11)
[2018-11-21 03:02] VITALS: BP 105/65; PULSE 84; RESP 16; TEMP 36.5; O2SAT 98
[2018-11-21] MEDS: traMADol 50 MG Tablet PO (03:06)
[2018-11-21 05:30] LABS: Hematocrit 28.1 % (37-47); Hemoglobin 9.5 g/dL (12.0-15.0); Mean Corp Hgb Conc 33.8 g/dL (32-36); Mean Corpuscular Hgb 31.9 pg (27.0-32.0); Mean Corpuscular Volume 94.3 fL (81-99); Mean Platelet Vol. 11.6 fl (6.2-12.0); Platelet Count 189 K/mm3 (150-450); RBC Distribution Width CV 13.2 % (11.6-14.6); RBC Distribution Width SD 45.7 fl (35.1-43.9); Red Blood Count 2.98 M/mm3 (4.2-5.4)
[2018-11-21] MEDS: Acetaminophen 500 MG Tablet 1000 MG PO ×2 (06:17→13:55)
--- NOTE | 2018-11-21 08:33 | PCM.TXEXTCAR ---
- Diet 11/18/18 14:52 Diet: Regular Diet Is pt able to select menu?: Yes - Wound(s) rt hip Wound Type: Surgical Incision - Therapies Weight Bearing: Weight bearing as tolerated Physical Therapy: Eval and Treat Occupational Therapy: Eval and Treat - Problem/Diagnosis (1) Osteoarthritis Status: Chronic Current Visit: Yes (2) Schizophrenia Status: Chronic Current Visit: No (3) COPD (chronic obstructive pulmonary disease) Status: Chronic Current Visit: No (4) Morbid obesity Status: Chronic Current Visit: No (5) Spondylosis of lumbar region without myelopathy or radiculopathy Status: Chronic Current Visit: No (6) Legal blindness Status: Chronic Current Visit: No (7) HTN (hypertension) Status: Chronic Current Visit: No - Allergies/Procedures Done in Hospital Allergies/Adverse Reactions: Allergies sumatriptan [From Imitrex] Adverse Reaction (Verified 11/14/18 15:01) Vomiting sumatriptan succinate [From Imitrex] Adverse Reaction (Verified 11/14/18 15:01) Vomiting BEE STING Allergy (Uncoded 11/14/18 15:01) Anaphylaxis PAPER TAPE Adverse Reaction (Uncoded 11/14/18 15:01) Rash Procedures: - - Right total hip arthroplasty 11/18/2018 - Type of Care/Length of Stay Estimated LOS: Convalescent Care Less Than 30 days Type of Care Needed: Skilled Rehab Potential: Good Prognosis: Good - Additional Orders/Day of Discharge H&P will serve as current which was dated: 11/03/18 Day of Discharge: 11/21/18 - Follow Up Care Primary Care Physician: Fatoumata Rosen MD [Primary Care Provider] - Please Follow Up With: Juan Nunes DO - 2 weeks
[2018-11-21 09:01] VITALS: BP 131/67; PULSE 98; RESP 18; TEMP 36.8; O2SAT 98
[2018-11-21] MEDS: Senna/Docusate Sodium 1 Tablet 2 TABLET PO (09:12)
[2018-11-21] MEDS: buPROPion (XL) 300 MG TABLET.XL PO (09:12)
[2018-11-21] MEDS: Topiramate 200 MG Tablet PO (09:12)
[2018-11-21] MEDS: Magnesium Oxide 400 MG Tablet PO (09:12)
[2018-11-21] MEDS: Divalproex (ER) 250 MG Tablet 500 MG PO (09:12)
[2018-11-21] MEDS: Phenytoin Na 100 MG Capsule 200 MG PO (09:13)
[2018-11-21] MEDS: Venlafaxine HCl 75 MG Tablet PO (09:14)
[2018-11-21] MEDS: APIXABAN 2.5 MG TABLET PO (09:15)
--- NOTE | 2018-11-21 10:43 | CASEMGMT ---
Social Work Note Pt is being discharged to [facility] skilled today. ELÍAS faxed completed discharge paperwork to [facility] including transfer to extended care, signed medication list and any scripts. Original in SNF folder and copy on pt's chart. ELÍAS completed [facility] in [facility]. Original in SNF folder and copy on pt's chart. ELÍAS placed a call to [facility] and earliest they can transport is 3:30pm. ELÍAS placed a call to [facility] and the earliest they can transport is 2:00pm. ELÍAS arranged transportation via cot for 2:00pm through [facility]. Transportation form completed and placed on SNF folder and copy on pt's chart. ELÍAS updated RN, pt on transportation time and attempted to call pt's CIARA Guaman to update on discharge and transportation time but number is not working. ELÍAS attempted to call [facility] and number kept ringing. ELÍAS will continue to try to reach pt's CIARA Guaman. ELÍAS placed a call to Fozia at [facility] and left her a message regarding transportation time. Plan: Pt to discharge to [facility] skilled today with [facility] transporting via cot at 2:00pm Nicole Rascon NUCLEAR DESIGN ENGINEER, ECONOMIC CONSULTANT
[2018-11-21] MEDS: clonazePAM 0.5 MG Tablet PO (11:04)
[2018-11-21] MEDS: Ziprasidone HCl 20 MG Capsule 80 MG PO (11:04)
[2018-11-21 11:05] VITALS: PULSE 80
--- NOTE | 2018-11-21 13:42 | NURSING ---
Called Patrizia the receiving nurse at [facility].
[2018-11-21 13:53] VITALS: BP 110/56; PULSE 87; RESP 16; TEMP 36.5; O2SAT 96
[2018-11-21] MEDS: oxyCODONE 5 MG Tablet PO (13:59)
--- NOTE | 2018-11-21 15:59 | PCM.PROGNOTE ---
Subjective: Patient was seen and examined today, white blood cell count is returning toward normal, patient is afebrile. Patient has no complaints of shortness of breath or chest discomfort the time of my examination. On examination she appeared in good health and spirits. Vital signs as documented. Skin warm and dry and without overt rashes. Neck without JVD. Lungs clear. Heart exam notable for regular rhythm, normal sounds and absence of murmurs, rubs or gallops. Abdomen unremarkable and without evidence of organomegaly, masses, or abdominal aortic enlargement. Extremities nonedematous. Neuro: Cranial nerves II through XII are grossly intact, no focal motor deficits were noted, sensation to light touch and pinprick is intact. Psych: Patient is alert and oriented x3, she does not appear anxious or depressed Patient will be discharged to a long-term facility for further rehab services. She appears stable at this time - Physical Exam General: Alert, Oriented x3, Cooperative HEENT: Atraumatic, PERRLA, EOMI, Normocephalic Oral: Moist Mucosa Neck: Supple, No JVD, Trachea Midline, Thyroid Normal Size and Texture Lungs: Clear to auscultation, Normal air movement, No rhonchi, No wheeze Cardiovascular: Regular rate, Regular Rhythm, Normal S1, Normal S2, No murmurs Abdomen: Bowel Sounds Present, Soft, Non Tender, Non-Distended Extremities: No clubbing, No cyanosis, Capillary Refill Less than 3 Seconds Skin: No rashes Neurological: Cranial nerves II-XII grossly intact, Neuro grossly intact, Sensory exam intact to light touch and pain Psych/Mental Status: Normal Affect, Appropriate, Alert and oriented to time, place, person, mood and affect Vital Signs Temp Pulse Resp BP Pulse Ox 97.7 F L 87 16 110/56 L 96 11/21/18 13:53 11/21/18 13:53 11/21/18 13:53 11/21/18 13:53 11/21/18 13:53 Oxygen Flow Rate (L/min) 2 Oxygen Delivery Method Room Air Weight: 102.6 kg Body Mass Index (BMI) 41.3 Finger Stick Blood Glucose 160 Intake and Output for Last 24 Hours 11/19/18 11/20/18 11/21/18 23:59 23:59 23:59 Intake Total 3365 / 3565 800 / 1100 700 / 700 Output Total 1175 / 2275 1400 / 1400 Balance 2190 / 1290 -600 / -300 700 / 700 Microbiology Past 72 Hours 11/19/18 08:55 Urine Culture - Final Urine, Catheterized Culture exhibits no growth. Laboratory Tests Past 24 Hrs 11/21/18 05:00 WBC 13.0 H RBC 2.98 L Hgb 9.5 L Hct 28.1 L MCV 94.3 MCH 31.9 MCHC 33.8 RDW Std Deviation 45.7 H RDW Coeff of Lenora 13.2 Plt Count 189 MPV 11.6 Medical Necessity - Tobacco Use Smoking Status: Former smoker Tobacco Use: Non-smoker Assessment/Plan All Active Problems Seizure (Acute) Encephalopathy (Acute) Accident due to mechanical fall without injury (Acute) Anxiety and depression (Acute) Atypical right-sided chest pain (Acute) #1 COPD-stable at this time #2 hyperlipidemia #3 seizure disorder #4 schizophrenia #5 osteoarthritis #6 status post right hip arthroplasty 11/18/2018 Code Visit Inpatient E&M: 06420 Subs Hosp L2
== END 2018-11-21 15:18 | disposition skilled nursing facility (03) | DRG 470 ==
LOC: ACINP 05:52 → MS3 09:28
PROVIDERS: Internal Medicine; Admitting Provider Orthopaedic Surgery; Family Provider Internal Medicine; PCP Internal Medicine; Referring Provider Orthopaedic Surgery; Visit Provider Orthopaedic Surgery
PROC: 0SR90JZ Replacement of Right Hip Joint with Synthetic Substitute, Open Approach (ICD-10-PCS; CPT 27130; principal; 2018-11-18 07:05)
DX: M16.11 Unilateral primary osteoarthritis, right hip (principal); Z68.41 Body mass index [BMI] 40.0-44.9, adult; J98.11 Atelectasis; R44.3 Hallucinations, unspecified; E78.5 Hyperlipidemia, unspecified; E66.01 Morbid (severe) obesity due to excess calories; J44.9 Chronic obstructive pulmonary disease, unspecified; I95.9 Hypotension, unspecified; Z87.891 Personal history of nicotine dependence; F20.9 Schizophrenia, unspecified; G40.909 Epilepsy, unspecified, not intractable, without status epilepticus; I10 Essential (primary) hypertension; I34.1 Nonrheumatic mitral (valve) prolapse; M47.816 Spondylosis without myelopathy or radiculopathy, lumbar region; H54.8 Legal blindness, as defined in USA; E11.9 Type 2 diabetes mellitus without complications; T40.2X5A Adverse effect of other opioids, initial encounter; D64.9 Anemia, unspecified; D72.829 Elevated white blood cell count, unspecified
CPT/HCPCS: 36415; 71045; 73502; 80048; 81002; 82962; 85027; 85730; 87081; 87086; 93005; 97110; 97116; 97162; 97166; 97530; 97535; 99406; C1713; C1776; J7040; J7120; A4216; J2405

== ENCOUNTER → 2019-01-02 08:29 | Outpatient (CLI) | payer MEDICARE, MEDICAID, SELFPAY ==
[2018-12-05 07:43] VITALS: BMI 41.3
--- NOTE | 2019-01-02 08:30 | RAD_ITS ---
STUDY: X-RAY - PELVIS AND RIGHT HIP REASON FOR EXAM: Female, 63 years old. Recent hip surgery. TECHNIQUE: 3 views of the pelvis and hip. COMPARISON: Comparison is made with prior examination dated November 18, 2018. FINDINGS: There is a non-specific bowel gas pattern. There are multiple calcified phleboliths. There is narrowing with cortical sclerosis and osteophyte formation of the sacroiliac joint consistent with degenerative osteoarthritic changes. Normal bilateral superior and inferior pubic rami. Normal pubic symphysis. Normal bilateral ischial tuberosities. The patient is status post right total hip replacement. Good alignment. RAD/HIP, UNI W/ Pelvis 2-3 Views IMPRESSION: Status post right total hip replacement. There is good alignment. Electronically Signed: Raoul Cobian, at 13:30 EDT , Service support ,
== END ==
PROVIDERS: Family Provider Internal Medicine; PCP Internal Medicine; Referring Provider Orthopaedic Surgery; Visit Provider Orthopaedic Surgery
DX: Z96.641 Presence of right artificial hip joint (principal)
CPT/HCPCS: 73502

== ENCOUNTER → 2019-02-17 09:45 | Outpatient (CLI) | payer MEDICARE, MEDICAID, SELFPAY ==
[2019-01-02 09:21] VITALS: BMI 41.3
--- NOTE | 2019-02-17 09:49 | BI_ITS ---
MAMMOGRAPHY - BILATERAL SCREENING REASON FOR EXAM: Female, 63 years old. Routine annual screening examination. PERTINENT HISTORY: Non-contributory. TECHNIQUE: Digital bilateral breast enedina (3D mammographic acquisition) in the CC and MLO projections. 2-D mediolateral oblique (MLO) and craniocaudad (CC) views of both breasts were obtained. CAD: Full Field Digital Mammography with Computer Added Detection was performed. COMPARISON: Comparison is made with prior study dated August 19, 2017 and December 23, 2015. FINDINGS: Breast Composition: There are scattered areas of fibroglandular density. There are no dominant masses or suspicious calcifications. Stable benign-appearing left axillary lymph nodes. No other significant abnormalities are identified. There has been no significant change since the prior study. BI/SCREEN MAMM (CAD) W/ENEDINA BILAT IMPRESSION: Stable bilateral screening mammogram. Yearly follow-up mammogram recommended. (A) ASSESSMENT CATEGORY: BIRADS Category 2: Benign. A letter regarding these results will be sent to the patient by the facility within 30 days. Approximately 10% of breast cancers are not detected by mammography. A normal mammogram should not delay biopsy of a clinically suspicious abnormality. [id number] Electronically Signed: Raoul Cobian, at 11:18 EDT , Service support ,
== END ==
PROVIDERS: Family Provider Internal Medicine; PCP Internal Medicine; Referring Provider Obstetrics & Gynecology; Visit Provider Obstetrics & Gynecology
DX: Z12.31 Encounter for screening mammogram for malignant neoplasm of breast (principal)
CPT/HCPCS: 77063; 77067

== ENCOUNTER → 2019-02-27 16:06 | Outpatient (CLI) | payer MEDICARE, MEDICAID, SELFPAY ==
[2019-01-02 09:21] VITALS: BMI 41.3
--- NOTE | 2019-02-27 16:20 | RAD_ITS ---
HISTORY: PAIN IN BOTH KNEES. LEFT KNEE KEEPS GIVING OUT ON HER.BOTH REPLACED ABOUT 15 YRS AGO PER PATIENT. EXAM:Right Knee COMPARISON: 3 views of the left knee from February 26, 2016 FINDINGS: # of images incl. paperwork: 4 Tricompartment cemented knee arthroplasty remains. Alignment of the prosthesis appears normal. No evidence of loosening. Tiny knee effusion. No fracture. RAD/Knee 4 or More Views IMPRESSION: Stable appearance to cemented tricompartment left knee arthroplasty. at 0602 Reported and signed by: Kamran Morgan MD Electronically Signed: Kamran Morgan MD at 6:01 EDT Tel , Service support ,
--- NOTE | 2019-02-27 16:21 | RAD_ITS ---
STUDY: X-RAY - RIGHT KNEE REASON FOR EXAM: Female, 63 years old. Pain TECHNIQUE: 5 view(s) of the knee. COMPARISON: 07 January 2017 FINDINGS: There is expected appearance of total knee arthroplasty. Distal femur proximal tibia and fibula are intact and located. There is no joint effusion. Soft tissues are unremarkable. RAD/Knee 4 or More Views IMPRESSION: Expected unremarkable appearance of total knee arthroplasty. Electronically Signed: Christina Lam, at 18:52 EDT Tel , Service support ,
== END ==
PROVIDERS: Family Provider Internal Medicine; PCP Internal Medicine; Referring Provider Anesthesiology; Visit Provider Anesthesiology
DX: M17.0 Bilateral primary osteoarthritis of knee (principal)
CPT/HCPCS: 73564

== ENCOUNTER 2019-03-13 15:04 | Observation (INO) | payer MEDICARE, MEDICAID, SELFPAY ==
[2019-01-02 09:21] VITALS: BMI 41.3
[2019-03-13] VITALS (7 sets, daily range): BP systolic 98–133; BP diastolic 60–73; PULSE 73–84; RESP 15–18; TEMP 36.6–36.8; O2SAT 94–100; BMI 46.4; BMI 43.8
--- NOTE | 2019-03-13 15:34 | EKG12_ITS ---
Test Reason : CP Blood Pressure : / mmHG Vent. Rate : 081 BPM Atrial Rate : 081 BPM P-R Int : 208 ms QRS Dur : 074 ms QT Int : 380 ms P-R-T Axes : 040 -15 015 degrees QTc Int : 441 ms Normal sinus rhythm Inferior infarct , age undetermined Abnormal ECG Confirmed by JANI ROJAS, NADIA ([id number]), film editor supervisor PHUONG VELEZ ([id number]) on 03/17/2019 11:13:46 AM Referred By: Grant Jeffries Confirmed By:NADIA GUNTER MD
--- NOTE | 2019-03-13 15:34 | CT_ITS ---
STUDY: CTA CHEST REASON FOR EXAM: Female, 63 years old. Chest pain RADIATION DOSAGE (If Supplied By Facility): CTDIvol = ( 14.63 ) mGy, DLP = ( 702.38 ) mGycm TECHNIQUE: The examination was performed with the intravenous administration of IV Isovue 370 100mL. Post-processing of the angiographic images was performed, with multiplanar reformation and 3D reconstruction. Individualized dose optimization techniques were used for this CT. COMPARISON: None. FINDINGS: Normal enhancement of the main pulmonary artery and right and left pulmonary arteries. Normal enhancement of the bilateral peripheral pulmonary arteries. There is no demonstrated pulmonary embolism. Normal thoracic aorta and visualized great vessels. There is no demonstrated aortic dissection. Normal heart and pericardium. Normal mediastinum. Normal hilar regions. Normal visualized trachea and bronchi. The lungs are well expanded. Normal pulmonary parenchyma. Normal pleura. Normal chest wall structures. Normal osseous structures. Normal visualized upper abdomen. CT/CTA Chest W/WO Contrast IMPRESSION: Normal CTA chest examination, without a demonstrated pulmonary embolism or arterial dissection. Electronically Signed: Georges Sherman, at 17:04 EST Tel , Service support ,
--- NOTE | 2019-03-13 15:37 | VDLE_ITS ---
Reason For Study: DVT RIGHT LEFT CFV is compressible, spontaneous, phasic, GSV is normal. competent and demonstrates normal CFV is compressible, spontaneous, phasic, augmentation. competent, and demonstrates normal Procedure augmentation. Exam performed portable in ED. FV is compressible, spontaneous, phasic, The exam was diagnostic. competent and demonstrates normal A preliminary report was called and/or faxed augmentation. to Dr. Haney. POP V is compressible, spontaneous, phasic, competent and demonstrates normal augmentation. T/P Trunk is compressible. PTV is compressible. LT PerV is compressible. Interpretation Summary Deep veins of the left lower extremity are patent and compressible segmentally. There is no evidence of left lower extremity deep vein thrombosis. Valvular competence appears intact within the proximal deep venous system on the left . The left great saphenous vein appears patent and compressible segmentally. Ordering Physician: Conor Haney Performed By: Noé Robins RVT
--- NOTE | 2019-03-13 15:38 | ED.VISSUMM ---
- ER Visit Summary Date of Service: 03/13/19 Chief Complaint: Chest pain History of Present Illness: The patient is a 63 F with chest pain for about 1 hour. It is retrosternal. Associated with some shortness of breath. She never had this before. She also reports 2 days of left lower leg swelling. No history of blood clots. History of MVP, but denies any history of coronary disease. Nothing seemed to bring this on or make it worse. Nothing seems to make it better. Physical Examination: Afebrile and vital signs unremarkable except initial blood pressure 98/60. Patient is alert and oriented. No acute distress. Skin appears normal without diaphoresis or pallor. Heart regular rate and rhythm. Lungs clear. Abdomen soft and nontender. Extremities show mild peripheral edema in her legs, worse on the left side, nontender. Pulses strong and equal. Test Results: EKG, labs, CTA, ultrasound left leg pending. Emergency Department Course and Treatment: Patient was placed on a monitor. Treated with aspirin while awaiting results. Will reassess. EKG showed sinus rhythm with nonspecific inferior changes. No acute ischemia or infarction pattern. CBC, BMP, troponin, BNP unremarkable. CT chest showed no evidence of PE or acute process. Ultrasound of her left leg was negative for DVT. Patient was pain-free after aspirin and fentanyl. Blood pressure is improved, 113 systolic. Last stress test was in April 2017 and normal. Patient has a heart score of 5. Hospitalist was contacted for admission. Treatment Plan: As above Disposition: PCU observation Impression: 1. Chest pain This note was generated with [employer] dictation software. It may contain incorrect words, spelling, and punctuation that were not noted in review of the chart prior to signing ED Disposition - Plan for ED Patient: Referrals: Fatoumata Rosen MD [Primary Care Provider] -
[2019-03-13 15:52] LABS: Absolute Lymphocyte Count 3.07 X10^3/uL (0.83-4.51); Absolute Neutrophil Count 4.1 X10^3/uL (2.0-7.7); Basophil# 0.08 X10^3/uL; Basophil% 0.9 % (0-1); Eosinophil# 0.44 X10^3/uL; Hematocrit 38.9 % (37-47); Hemoglobin 12.8 g/dL (12.0-15.0); Lymphocyte # 3.07 X10^3/ul (4.0); Lymphocyte % 34.7 % (19-41); Mean Corp Hgb Conc 32.9 g/dL (32-36); Mean Corpuscular Hgb 31.4 pg (27.0-32.0); Mean Corpuscular Volume 95.3 fL (81-99); Mean Platelet Vol. 10.8 fl (6.2-12.0); Monocyte# 1.13 X10^3/uL; Monocyte% 12.8 % (0-10); NRBC Flagged by Analyzer 0 % (0-5); Neutrophil # 4.12 X10^3/uL (2.7-7.7); Neutrophil % 46.5 % (47-70); Platelet Count 223 K/mm3 (150-450); RBC Distribution Width CV 13.7 % (11.6-14.6); RBC Distribution Width SD 48.1 fl (35.1-43.9); Red Blood Count 4.08 M/mm3 (4.2-5.4); White Blood Count 8.9 K/mm3 (4.4-11.0)
[2019-03-13 16:10] LABS: International Normalized Ratio 1.1; Prothrombin Time (Protime)PT. 13.9 SECONDS (11.7-14.9)
[2019-03-13 16:15] LABS: Anion Gap 6 (5-15); BUN 17 mg/dL (7-18); BUN/Creat Ratio 23.8 RATIO (10-20); Calcium,Total 8.3 mg/dL (8.5-10.1); Chloride 106 mmol/L (98-107); Creatinine, Serum 0.71 mg/dL (0.55-1.02); EST Glomerular Filtration Rate 88 mL/min (>60); Est Glom Filt Rate - Afr Amer 107 mL/min (>60); Estimated Creatinine Clearance 64.98 ml/min; Glucose 103 mg/dL (74-106); Potassium 3.6 mmol/L (3.5-5.1); Sodium Level 141 mmol/L (136-145)
[2019-03-13 16:23] LABS: BNP,B-Type NATRIURETIC PEPTIDE 6.9 pg/mL (0-100)
[2019-03-13] MEDS: fentaNYL 100 MCG/2 ML Ampul 25 MCG IV (16:47)
--- NOTE | 2019-03-13 18:40 | EKG12_ITS ---
Test Reason : CP ADMISSION Blood Pressure : / mmHG Vent. Rate : 077 BPM Atrial Rate : 077 BPM P-R Int : 216 ms QRS Dur : 070 ms QT Int : 406 ms P-R-T Axes : 047 -10 019 degrees QTc Int : 459 ms Sinus rhythm with 1st degree A-V block Inferior infarct , age undetermined Abnormal ECG When compared with ECG of 19-NOV-2018 08:18, Inferior infarct is now Present Confirmed by JAIME GENAO ([id number]), managing editor KRISTIE LONG ([id number]) on 03/24/2019 10:11:40 AM Referred By: Grant Jeffries Confirmed By:JAIME GENAO
--- NOTE | 2019-03-13 20:59 | PCM.HP.STD ---
Problem List (1) Chest pain Status: Acute Qualifiers: Chest pain type: precordial pain Qualified Code(s): R07.2 - Precordial pain History of Present Illness Date of Admission: 03/13/19 Chief Complaint: Chest pain The patient is a 63 year old F who was seen in the emergency room today at [facility] with a chief complaint of precordial chest discomfort which she described as squeezing in nature. She states that she had pain in her left arm also. Patient was at rest when she had the discomfort today, it was about 3 PM and the pain continued until she was in the emergency room and got an IV dose of fentanyl which she states less than the pain greatly. Patient has a history of schizophrenia, it appears her last nuclear stress test was in 2018-the stress test was negative for reversible ischemia. Patient has not had an echo in the last several years. Labs were obtained in the emergency room, troponin was unremarkable, CBC was unremarkable, and chemistry panel was unremarkable. Patient had a CTA of her chest performed it did not show any pulmonary embolism or arterial dissection. EKG was performed, showed normal sinus rhythm with T wave inversions in lead III only. Patient will be placed in observation status on PCU, she will undergo an echocardiogram tomorrow and have a nuclear resting stress test. I am doubtful the patient's chest pain is cardiac in nature, patient's affect is odd, she states that she is unable to ambulate yet the nurses saw her rise from a wheelchair and walked over to her bed. She also states that she has had poor vision/blindness all my life because of weak eyes. Patient admits to this examiner that she can see objects, during my examination this evening she is wearing dark sunglasses in her room. Past Medical History Past Medical History (Chronic Problems): Chronic Problems Osteoarthritis (Chronic) Anxiety and depression (Chronic) Schizophrenia (Chronic) COPD (chronic obstructive pulmonary disease) (Chronic) Tobacco use (Chronic) Morbid obesity (Chronic) Tobacco user (Chronic) Spondylosis of lumbar region without myelopathy or radiculopathy (Chronic) Diabetes (Chronic) Legal blindness (Chronic) HTN (hypertension) (Chronic) MVP (mitral valve prolapse) (Chronic) Allergies sumatriptan [From Imitrex] Adverse Reaction (Verified 03/13/19 15:08) Vomiting sumatriptan succinate [From Imitrex] Adverse Reaction (Verified 03/13/19 15:08) Vomiting BEE STING Allergy (Uncoded 03/13/19 15:08) Anaphylaxis PAPER TAPE Adverse Reaction (Uncoded 03/13/19 15:08) Rash Home Medications: Ambulatory Orders Medication Instructions Recorded Ziprasidone HCl [Geodon] 80 mg PO BID 07/11/13 Pravastatin [Pravachol] 80 mg PO QHS 09/07/15 Phenytoin Sodium Extended 200 mg PO BID 12/02/17 [Dilantin] Potassium Chloride 10 meq PO BID 12/02/17 Albuterol Inhaler [Ventolin Hfa] 2 puff INHALATION Q6H PRN PRN 02/20/18 Hydroxyzine Pamoate [Vistaril] 100 mg PO TID PRN PRN 02/20/18 Bupropion HCl [Bupropion Xl] 300 mg PO DAILY 11/14/18 Calcium Carbonate/Vitamin D3 1 ea PO DAILY 11/14/18 [Oyster Shell 500-Vit D3 200 Tb] Clonazepam 0.5 mg PO BID 11/14/18 Divalproex (ER) [Depakote ER] 500 mg PO BID 11/14/18 Magnesium Oxide [Magnesium] 400 mg PO DAILY 11/14/18 Topiramate 200 mg PO BID 11/14/18 Venlafaxine HCl [Effexor] 75 mg PO DAILY 11/14/18 Mirtazapine [Remeron] 30 mg PO QHS 03/13/19 Oxycodone HCl 5 mg PO Q6H 03/13/19 Prazosin HCl 4 mg PO QHS 03/13/19 Surgical History: cholecystectomy, total hip arthroplasty, total knee arthroplasty - Bilateral, - - Surgery for wrist fracture, surgery for shoulder dislocation Psychiatric History: Anxiety, Depression, Schizophrenia [employer] History: No pertinent [employer] history Lives: Alone Smoking Status: Current every day smoker Tobacco Use: Cigarettes Alcohol: None Drugs: None - *Family History Paternal History Items: Heart Disease Maternal History Items: - - liver failure Review of Systems Constitutional: Denies: Anorexia, Chills, Fever, Night Sweats, Malaise, Weakness, Weight Change Eyes: Denies: Cataracts, Conjunctivae Inflammation, Double vision, Drainage HEENT: Denies: Difficulty Swallowing, Dysphasia, Ear Pain, Eye Pain, Hearing Changes, Nasal bleeding, Nasal Congestion, Post Nasal Drip Cardiovascular: Reports: Chest Pain. Denies: Claudication, Chest Pressure, Chest Tightness, Edema, Heaviness, Orthopnea, Palpitations, Paroxysmal Noc. Dyspnea Respiratory: Denies: Cough, Hemoptysis, Pleuritic Pain, Shortness of Breath, Shortness of breath at rest, Shortness of breath upon exertion, Sputum production Gastrointestinal: Denies: Abdominal Pain, Constipation, Diarrhea, Hematemesis, Hematochezia, Nausea, Melena, Vomiting Genitourinary: Denies: Dysuria, Frequency, Hematuria, Hesitancy, Nocturia, Retention, Urgency Gynecological: Denies: Breast symptoms Musculoskeletal: Reports: Joint Pain - bilateral knee pain. Denies: Foot Pain, Hand Pain, Joint stiffness, Joint swelling, Neck Pain, Shoulder Pain Skin: Denies: Dryness, Jaundice, Pruritis, Rash, Wounds Neurological: Denies: Blurred vision, Double vision, Change in Speech, Slurred speech, Difficulty swallowing, Focal weakness, Headaches, Numbness, Tingling Psychiatric: Reports: Anxiety. Denies: Depression, Homicidal Ideations, Suicidal Ideations Endocrine: Denies: Change in Body Habitus, Heat/ Cold Intolerance, Polydipsia, Polyuria Hematologic/ Lymphatic: Denies: Adenopathy, Anemia, Easy Bruising, Easy Bleeding, Petechiae, Purpura VTE Information - Inpt Only VTE Present on Admission: No VTE Mechan Device Prophylaxis: None VTE Pharm Prophylaxis ordered?: Yes Patient Problems: Active and Suspected Problems Chest pain (Acute) - Physical Exam Vitals/I&O's: Vital Signs Temp Pulse Resp BP Pulse Ox 97.8 F 76 18 116/64 96 03/13/19 18:28 03/13/19 19:07 03/13/19 18:28 03/13/19 18:28 03/13/19 18:28 Oxygen Flow Rate (L/min) 2 Oxygen Delivery Method Room Air Weight: 108.7 kg Body Mass Index (BMI) 43.8 Finger Stick Blood Glucose 160 General: Alert, Oriented x3, Cooperative, No apparent distress, Well developed, Well nourished HEENT: Atraumatic, Normocephalic Oral: Moist Mucosa Neck: Supple, No JVD, Negative Carotid Bruits, Trachea Midline, Thyroid Normal Size and Texture Lungs: Clear to auscultation, Normal air movement, No rhonchi, No wheeze, No rales Cardiovascular: Regular rate, Regular Rhythm, Normal S1, Normal S2, No murmurs, No Ectopic Activity, PMI Normal, No rub noted Abdomen: Bowel Sounds Present, Soft, Non Tender, Non-Distended, Obese Extremities: No clubbing, No cyanosis, Capillary Refill Less than 3 Seconds, Edema - generalized edema over both lower legs and feet Skin: No rashes, No breakdown Neurological: Cranial nerves II-XII grossly intact, Neuro grossly intact, Sensory exam intact to light touch and pain Psych/Mental Status: Normal Affect, Appropriate, Alert and oriented to time, place, person, mood and affect Laboratory Results 03/13/19 15:43: WBC 8.9, RBC 4.08 L, Hgb 12.8, Hct 38.9, MCV 95.3, MCH 31.4, MCHC 32.9, RDW Std Deviation 48.1 H, RDW Coeff of Lenora 13.7, Plt Count 223, MPV 10.8, Immature Gran % (Auto) 0.100, Neut % (Auto) 46.5 L, Lymph % (Auto) 34.7, [place] % (Auto) 12.8 H, Eos % (Auto) 5.0, Baso % (Auto) 0.9, Absolute Neuts (auto) 4.1, Absolute Lymphs (auto) 3.07, Nucleated RBC % 0 03/13/19 15:43: Sodium 141, Potassium 3.6, Chloride 106, Carbon Dioxide 29.0, Anion Gap 6, BUN 17, Creatinine 0.71, Estim Creat Clear Calc 64.98, Est GFR (MDRD) Af Amer 107, Est GFR (MDRD) Non-Af 88, BUN/Creatinine Ratio 23.8 H, Glucose 103, Calcium 8.3 L, Troponin I < 0.015 03/13/19 15:43: PT 13.9, INR 1.1, APTT 29.0 03/13/19 15:43: B-Natriuretic Peptide 6.9 03/13/19 19:30: Troponin I < 0.015 Current Medications Bupropion HCl (Wellbutrin Xl) 300 mg PO DAILY [facility] Clonazepam (Klonopin) 0.5 mg PO BID [facility] Divalproex Sodium (Depakote Er) 500 mg PO BID [facility] Heparin Sodium (Porcine) (Heparin Na) 5,000 unit SC Q12 [facility] Sodium Chloride () 250 mls @ 15 mls/hr IV .[id number] PRN PRN Reason: Saline Flush Mirtazapine (Remeron) 30 mg PO QHS [facility] Morphine Sulfate () 4 mg IV Q3H PRN PRN PRN Reason: Pain Score 6-10/10 Non-Formulary Medication (Hydroxyzine Pamoate [Vistaril]) 100 mg PO TID PRN PRN PRN Reason: antihistamine Non-Formulary Medication (Magnesium Oxide [Magnesium]) 400 mg PO DAILY [facility] Non-Formulary Medication (Potassium Chloride) 10 meq PO BID [facility] Non-Formulary Medication (Prazosin Hcl) 4 mg PO QHS [facility] Non-Formulary Medication (Ziprasidone Hcl [Geodon]) 80 mg PO BID [facility] Ondansetron HCl (Zofran) 4 mg IV Q8H PRN PRN PRN Reason: NAUSEA/VOMITING Oxycodone HCl (Oxyir) 5 mg PO Q6H PRN PRN PRN Reason: Pain Score 6-10/10 Phenytoin Sodium (Dilantin) 200 mg PO BID [facility] Pravastatin Sodium (Pravachol) 80 mg PO QHS [facility] Sodium Chloride () 10 - 40 ml IV UD PRN PRN Reason: SALINE FLUSH Topiramate (Topamax) 200 mg PO BID [facility] Venlafaxine HCl (Effexor) 75 mg PO DAILY [facility] Assessment/Plan All Active Problems Chest pain (Acute) Seizure (Resolved) Encephalopathy (Resolved) Accident due to mechanical fall without injury (Resolved) Atypical right-sided chest pain (Resolved) #1 precordial chest pain-etiology unclear, patient will be placed in observation status on PCU, cardiac enzymes will be cycled, if the enzymes remain negative he will undergo a resting nuclear stress test tomorrow, I will also order an echocardiogram on the patient. #2 schizophrenia #3 anxiety/depression #4 obstructive pulmonary disease by history #5 essential hypertension #6 morbid obesity #7 osteoarthritis Code Visit OBSV E&M: 25553 Initial observation care L3
[2019-03-13] MEDS: Doxazosin 1 MG Tablet 3 MG PO (22:25)
[2019-03-13] MEDS: Ziprasidone HCl 20 MG Capsule 80 MG PO (22:26)
[2019-03-13] MEDS: Mirtazapine 30 MG Tablet PO (22:27)
[2019-03-13] MEDS: Pravastatin 80 MG Tablet PO (22:27)
[2019-03-13] MEDS: Phenytoin Na 100 MG Capsule 200 MG PO (22:27)
[2019-03-13] MEDS: Divalproex (ER) 250 MG Tablet 500 MG PO (22:36)
[2019-03-13] MEDS: Topiramate 200 MG Tablet PO (22:37)
[2019-03-13] MEDS: clonazePAM 0.5 MG Tablet PO (22:37)
[2019-03-13] MEDS: oxyCODONE 5 MG Tablet PO (22:37)
[2019-03-13] MEDS: Heparin Injection (Vial) 5,000 UNIT/ML VIAL 5000 UNIT SC (22:38)
[2019-03-14 02:57] VITALS: PULSE 87
[2019-03-14 03:05] VITALS: BP 102/72; PULSE 85; RESP 16; TEMP 36.8; O2SAT 95
[2019-03-14] MEDS: oxyCODONE 5 MG Tablet PO (04:59)
--- NOTE | 2019-03-14 05:55 | EKG12_ITS ---
Test Reason : AM EKG Blood Pressure : / mmHG Vent. Rate : 093 BPM Atrial Rate : 093 BPM P-R Int : 220 ms QRS Dur : 066 ms QT Int : 364 ms P-R-T Axes : 052 -05 030 degrees QTc Int : 452 ms Sinus rhythm with 1st degree A-V block Otherwise normal ECG When compared with ECG of 13-MAR-2019 18:53, MANUAL COMPARISON REQUIRED, DATA IS UNCONFIRMED Confirmed by JAIME GENAO ([id number]), city editor KRISTIE LONG ([id number]) on 03/24/2019 10:14:02 AM Referred By: Grant Jeffries Confirmed By:JAIME GENAO
[2019-03-14 06:55] VITALS: BP 102/64; PULSE 96; RESP 16; TEMP 37; O2SAT 93
[2019-03-14 07:28] VITALS: PULSE 93
[2019-03-14 09:46] VITALS: BP 105/70; PULSE 92; RESP 18; TEMP 36.6; O2SAT 97
[2019-03-14] MEDS: Venlafaxine XR 75 MG Capsule PO (09:51)
[2019-03-14] MEDS: Phenytoin Na 100 MG Capsule 200 MG PO (09:51)
[2019-03-14] MEDS: clonazePAM 0.5 MG Tablet PO (09:51)
[2019-03-14] MEDS: buPROPion (XL) 300 MG TABLET.XL PO (09:52)
[2019-03-14] MEDS: Ziprasidone HCl 20 MG Capsule 80 MG PO (09:53)
[2019-03-14] MEDS: Divalproex (ER) 250 MG Tablet 500 MG PO (09:53)
[2019-03-14] MEDS: Magnesium Oxide 400 MG Tablet PO (09:54)
[2019-03-14] MEDS: Topiramate 200 MG Tablet PO (09:54)
--- NOTE | 2019-03-14 10:25 | STRESSREP ---
Stress Test Report Pharmacologic myocardial perfusion stress test. 63-year-old lady with a history of chest pain. Stress protocol: Resting EKG demonstrates normal sinus rhythm with a rate of 93 bpm normal intervals are noted resting blood pressure 110/60 mmHg. 0.4 mg of regadenoson was infused per usual protocol followed by rapid intravenous and flush injection continuous EKG monitoring was performed. At rest there were no ST or T wave changes noted suggest abnormal flow reserve. At peak infusion nonspecific ST-T wave changes were noted. No clinical angina was noted. Resting blood pressures 110/60 mmHg with a final blood pressure of the same. Myocardial perfusion protocol. 14.8 mCi of technetium 99m sestamibi was injected at rest. 0.4 mg of regadenoson was infused per usual protocol peak infusion 44.3 mCi of technetium 99m sestamibi was injected stress images were obtained stress and rest images are reconstructed in comparing the short axis vertical long horizontal long axis. Gated images was obtained Perfusion SPECT analysis: Review of the stress images demonstrate normal uptake of tracer noted in all areas of myocardium the resting images similar demonstrate normal uptake of tracer noted in all rest myocardium. No areas of reversibility are noted suggest ischemia no previous infarct is noted. Gated SPECT analysis: The gated ejection fraction is noted to be 75%. Conclusion: Normal pharmacologic myocardial perfusion stress test. Preserved ejection fraction.
--- NOTE | 2019-03-14 11:02 | PCM.DC ---
- Discharge Diagnoses Current Active Problems: Current Active and Chronic Problems Chest pain (Acute) You will use the following diet at home:: Cardiac Your food should be the consistency of: Regular Discharge Activity: Return to Normal Activity Weight Bearing Status: Weight bearing as tolerated Call your doctor if you observe: Fever of 101 or Higher, Shortness of breath, Dizziness, Fainting spells, Chest pain, Increased palpitations (irregular heartbeat), Uncontrolled pain Allergies/Adverse Reactions: Allergies sumatriptan [From Imitrex] Adverse Reaction (Verified 03/13/19 15:08) Vomiting sumatriptan succinate [From Imitrex] Adverse Reaction (Verified 03/13/19 15:08) Vomiting BEE STING Allergy (Uncoded 03/13/19 15:08) Anaphylaxis PAPER TAPE Adverse Reaction (Uncoded 03/13/19 15:08) Rash Medications to take at Discharge Ziprasidone HCl [Geodon] 80 mg PO BID 07/11/13 Pravastatin [Pravachol] 80 mg PO QHS 09/07/15 Phenytoin Sodium Extended [Dilantin] 200 mg PO BID 12/02/17 Potassium Chloride 10 meq PO BID 12/02/17 Albuterol Inhaler [Ventolin Hfa] 2 puff INHALATION Q6H PRN PRN 02/20/18 Hydroxyzine Pamoate [Vistaril] 100 mg PO TID PRN PRN 02/20/18 Bupropion HCl [Bupropion Xl] 300 mg PO DAILY 11/14/18 Calcium Carbonate/Vitamin D3 [Oyster Shell 500-Vit D3 200 Tb] 1 ea PO DAILY 11/14/18 Clonazepam 0.5 mg PO BID 11/14/18 Divalproex (ER) [Depakote ER] 500 mg PO BID 11/14/18 Magnesium Oxide [Magnesium] 400 mg PO DAILY 11/14/18 Topiramate 200 mg PO BID 11/14/18 Mirtazapine [Remeron] 30 mg PO QHS 03/13/19 Oxycodone HCl 5 mg PO Q6H 03/13/19 Prazosin HCl 4 mg PO QHS 03/13/19 Venlafaxine XR [Effexor Xr] 75 mg PO DAILY 03/13/19 Primary Care Physician: Fatoumata Rosen MD [Primary Care Provider] - Please follow up with your Primary Care Physician in: 2 weeks. Test Results: Test results from this visit will be discussed in further detail at your follow-up appointment, if applicable.
--- NOTE | 2019-03-14 11:13 | PCM.DC.SUM ---
Discharge Date and Diagnosis - Problem List Patient Problems: Active and Suspected Problems Chest pain (Acute) Date of Admission: 03/13/19 Date of Discharge: 03/14/19 - Primary Discharge Diagnosis Active and Suspected Problems Chest pain, ACS ruled out (Acute) - Secondary Discharge Diagnosis Chronic Problems Osteoarthritis (Chronic) Anxiety and depression (Chronic) Schizophrenia (Chronic) COPD (chronic obstructive pulmonary disease) (Chronic) Tobacco use (Chronic) Morbid obesity (Chronic) Tobacco user (Chronic) Spondylosis of lumbar region without myelopathy or radiculopathy (Chronic) Diabetes (Chronic) Legal blindness (Chronic) HTN (hypertension) (Chronic) MVP (mitral valve prolapse) (Chronic) Hospital Course and Treatment Imaging Results: Clinical Impression(s) from Imaging Studies Chest CTA 03/13/19 15:34 IMPRESSION: Normal CTA chest examination, without a demonstrated pulmonary embolism or arterial dissection. Electronically Signed: Georges Shipmani, at 17:04 EST Tel , Service support , Operations: None Procedures: 2-D Echocardiogram, EKG, Stress test Summary of Care Provided: Patient seen and examined on the day of discharge and appeared to be stable to be discharged home. She had no more chest pain. Her vital signs were stable. The patient is a 63 year old F patient presented to the emergency room because of chest pain and she was admitted for evaluation. Also, patient complained of left leg weakness for which venous Doppler performed that showed no evidence of acute DVT. There was no evidence of localized cellulitis. Her EKG revealed normal sinus rhythm, first-degree AV block and without evidence of acute ischemic changes. Troponin was negative x3. BNP was normal. CTA chest done and revealed no PE or dissection. Her routine blood work was unremarkable. She underwent nuclear stress test that showed no evidence of stress-induced myocardial ischemia. ACS ruled out. 2D echocardiogram revealed ejection fraction of 70%, stage I diastolic dysfunction, no significant valvular heart disease. Patient discharged home in a stable medical condition, continued on her previous home medications without any changes, recommended follow-up with PCP in 2 weeks. Patient Problems: Active and Suspected Problems Chest pain (Acute) - Physical Exam Vitals/I&O's: Vital Signs Temp Pulse Resp BP Pulse Ox 97.9 F 92 18 105/70 97 03/14/19 09:46 03/14/19 09:46 03/14/19 09:46 03/14/19 09:46 03/14/19 09:46 Oxygen Flow Rate (L/min) 2 Oxygen Delivery Method Room Air Weight: 239 lb 10.279 oz Body Mass Index (BMI) 43.8 Finger Stick Blood Glucose 160 Intake and Output for Last 24 Hours 03/12/19 03/13/19 03/14/19 23:59 23:59 23:59 Intake Total 250 / 250 650 / 650 Output Total 400 / 400 Balance -150 / -150 650 / 650 General: Alert, Oriented x3, Cooperative, No apparent distress HEENT: Atraumatic, PERRLA, EOMI, Normocephalic Oral: Moist Mucosa, No Gingival or Mucosal Lesions/ Ulcerations Neck: Supple, No JVD, Negative Carotid Bruits, Trachea Midline, Thyroid Normal Size and Texture Lungs: Clear to auscultation, Normal air movement, No rhonchi, No wheeze, No rales Cardiovascular: Regular rate, Regular Rhythm, Normal S1, Normal S2 Abdomen: Bowel Sounds Present, Soft, Non Tender, Non-Distended, No Hepato-splenomegaly Extremities: No clubbing, No cyanosis, No edema Skin: No rashes, No breakdown Lymphatic: No Cervical, Supraclavicular, or Inguinal Adenopathy Neurological: Cranial nerves II-XII grossly intact, Neuro grossly intact Psych/Mental Status: Normal Affect, Appropriate Laboratory Results 03/13/19 15:43: WBC 8.9, RBC 4.08 L, Hgb 12.8, Hct 38.9, MCV 95.3, MCH 31.4, MCHC 32.9, RDW Std Deviation 48.1 H, RDW Coeff of Lenora 13.7, Plt Count 223, MPV 10.8, Immature Gran % (Auto) 0.100, Neut % (Auto) 46.5 L, Lymph % (Auto) 34.7, [place] % (Auto) 12.8 H, Eos % (Auto) 5.0, Baso % (Auto) 0.9, Absolute Neuts (auto) 4.1, Absolute Lymphs (auto) 3.07, Nucleated RBC % 0 03/13/19 15:43: Sodium 141, Potassium 3.6, Chloride 106, Carbon Dioxide 29.0, Anion Gap 6, BUN 17, Creatinine 0.71, Estim Creat Clear Calc 64.98, Est GFR (MDRD) Af Amer 107, Est GFR (MDRD) Non-Af 88, BUN/Creatinine Ratio 23.8 H, Glucose 103, Calcium 8.3 L, Troponin I < 0.015 03/13/19 15:43: PT 13.9, INR 1.1, APTT 29.0 03/13/19 15:43: B-Natriuretic Peptide 6.9 03/13/19 19:30: Troponin I < 0.015 03/13/19 21:50: Troponin I < 0.015 Current Medications Bupropion HCl (Wellbutrin Xl) 300 mg PO DAILY [facility] Last Admin: 03/14/19 09:52 Dose: 300 mg Documented by: Clonazepam (Klonopin) 0.5 mg PO BID [facility] Last Admin: 03/14/19 09:51 Dose: 0.5 mg Documented by: Divalproex Sodium (Depakote Er) 500 mg PO BID [facility] Last Admin: 03/14/19 09:53 Dose: 500 mg Documented by: Doxazosin Mesylate (Cardura) 3 mg PO QHS [facility] Last Admin: 03/13/19 22:25 Dose: 3 mg Documented by: Heparin Sodium (Porcine) (Heparin Na) 5,000 unit SC Q12 [facility] Last Admin: 03/14/19 09:48 Dose: Not Given Documented by: Hydroxyzine Pamoate (Vistaril Pamoate Capsule) 100 mg PO TID PRN PRN Reason: ANTIHISTAMINE Sodium Chloride () 250 mls @ 15 mls/hr IV .[id number] PRN PRN Reason: Saline Flush Magnesium Oxide (Mag-Ox 400) 400 mg PO DAILY [facility] Last Admin: 03/14/19 09:54 Dose: 400 mg Documented by: Mirtazapine (Remeron) 30 mg PO QHS [facility] Last Admin: 03/13/19 22:27 Dose: 30 mg Documented by: Morphine Sulfate () 4 mg IV Q3H PRN PRN PRN Reason: Pain Score 6-10/10 Ondansetron HCl (Zofran) 4 mg IV Q8H PRN PRN PRN Reason: NAUSEA/VOMITING Oxycodone HCl (Oxyir) 5 mg PO Q6H PRN PRN PRN Reason: Pain Score 6-10/10 Last Admin: 03/14/19 04:59 Dose: 5 mg Documented by: Phenytoin Sodium (Dilantin) 200 mg PO BID [facility] Last Admin: 03/14/19 09:51 Dose: 200 mg Documented by: Potassium Chloride (K-Dur) 10 meq PO BID [facility] Last Admin: 03/14/19 09:54 Dose: 10 meq Documented by: Pravastatin Sodium (Pravachol) 80 mg PO QHS [facility] Last Admin: 03/13/19 22:27 Dose: 80 mg Documented by: Sodium Chloride () 10 - 40 ml IV UD PRN PRN Reason: SALINE FLUSH Topiramate (Topamax) 200 mg PO BID [facility] Last Admin: 03/14/19 09:54 Dose: 200 mg Documented by: Venlafaxine HCl (Effexor Xr) 75 mg PO DAILY [facility] Last Admin: 03/14/19 09:51 Dose: 75 mg Documented by: Ziprasidone (Geodon) 80 mg PO BID [facility] Last Admin: 03/14/19 09:53 Dose: 80 mg Documented by: Discharge Activity: Return to Normal Activity Weight Bearing Status: Weight bearing as tolerated Call your doctor if you observe: Fever of 101 or Higher, Shortness of breath, Dizziness, Fainting spells, Chest pain, Increased palpitations (irregular heartbeat), Uncontrolled pain Home Medications: Medications to take at Discharge Ziprasidone HCl [Geodon] 80 mg PO BID 07/11/13 Pravastatin [Pravachol] 80 mg PO QHS 09/07/15 Phenytoin Sodium Extended [Dilantin] 200 mg PO BID 12/02/17 Potassium Chloride 10 meq PO BID 12/02/17 Albuterol Inhaler [Ventolin Hfa] 2 puff INHALATION Q6H PRN PRN 02/20/18 Hydroxyzine Pamoate [Vistaril] 100 mg PO TID PRN PRN 02/20/18 Bupropion HCl [Bupropion Xl] 300 mg PO DAILY 11/14/18 Calcium Carbonate/Vitamin D3 [Oyster Shell 500-Vit D3 200 Tb] 1 ea PO DAILY 11/14/18 Clonazepam 0.5 mg PO BID 11/14/18 Divalproex (ER) [Depakote ER] 500 mg PO BID 11/14/18 Magnesium Oxide [Magnesium] 400 mg PO DAILY 11/14/18 Topiramate 200 mg PO BID 11/14/18 Mirtazapine [Remeron] 30 mg PO QHS 03/13/19 Oxycodone HCl 5 mg PO Q6H 03/13/19 Prazosin HCl 4 mg PO QHS 03/13/19 Venlafaxine XR [Effexor Xr] 75 mg PO DAILY 03/13/19 Primary Care Physician: Fatoumata Rosen MD [Primary Care Provider] - Please follow up with your Primary Care Physician in: 2 weeks. Disposition: Home Minutes spent on discharge:: 25 Patient Condition:: Stable Medical Necessity - Tobacco Use Smoking Status: Current every day smoker Tobacco Use: Cigarettes Meaningful Use Info Meaningful Use Diagnoses (Choose all that apply): None applicable Code Visit OBSV E&M: 53657 Observation care discharge
== END 2019-03-14 11:02 | disposition home or self-care (01) ==
LOC: ED 15:43 → PCU 19:22
PROVIDERS: Admitting Provider Internal Medicine; Emergency Provider Emergency Medicine; Family Provider Internal Medicine; PCP Internal Medicine; Referring Provider Internal Medicine; Visit Provider Hospitalist
DX: R07.89 Other chest pain (principal); R06.02 Shortness of breath; M79.89 Other specified soft tissue disorders; M19.90 Unspecified osteoarthritis, unspecified site; F20.9 Schizophrenia, unspecified; F41.9 Anxiety disorder, unspecified; E66.01 Morbid (severe) obesity due to excess calories; J44.9 Chronic obstructive pulmonary disease, unspecified; I10 Essential (primary) hypertension; F17.210 Nicotine dependence, cigarettes, uncomplicated; F32.9 Major depressive disorder, single episode, unspecified; E11.9 Type 2 diabetes mellitus without complications; M47.816 Spondylosis without myelopathy or radiculopathy, lumbar region; Z68.41 Body mass index [BMI] 40.0-44.9, adult; Z71.3 Dietary counseling and surveillance; Z79.899 Other long term (current) drug therapy
CPT/HCPCS: 36415; 71275; 78452; 80048; 83880; 84484; 85025; 85610; 85730; 93005; 93017; 93306; 93971; 96372; 96374; 97162; 97165; 99218; 99285; 99406; A9500; Q9957; Q9967; A4216; G0378; J2785

== ENCOUNTER 2019-04-08 13:32 | Emergency (ER) | payer MEDICARE, MEDICAID, SELFPAY ==
[2019-03-13 18:27] VITALS: BMI 43.8
[2019-04-08 13:34] VITALS: BP 131/69; PULSE 78; RESP 16; RESP 18; TEMP 36.7; O2SAT 95; O2SAT 96; BMI 45.6
[2019-04-08 13:37] VITALS: TEMP 36.7; BMI 45.6
--- NOTE | 2019-04-08 14:00 | RAD_ITS ---
STUDY: X-RAY - LEFT SHOULDER REASON FOR EXAM: Female, 63 years old. Pain following a fall. TECHNIQUE: 4 view(s) of the shoulder. COMPARISON: None. FINDINGS: Normal glenohumeral articulation. Normal acromioclavicular joint. Normal acromion. Normal humeral head and visualized proximal humerus. The soft tissue structures are unremarkable. Normal visualized pulmonary apex. RAD/Shoulder min 2 Views IMPRESSION: Normal x-ray examination of the shoulder. Electronically Signed: Raoul Cobian, at 14:26 EST , Service support ,
--- NOTE | 2019-04-08 14:59 | ED.DCSUM_ITS ---
History of Present Illness Chief Complaint: Fall Informant: Patient Onset: Today Maximum Severity: Mild Narrative: Complains of near fall today she stumbled caretakers were with her she put her left arm out to brace her fall so she did not strike the ground her caretakers were with her they continued with daily activities and she indicates after her caretakers left she complained of shoulder pain and she was brought in by EMS she did not strike her head she has no loss of function to her right upper extremity or left upper extremity, no complaints except for anterior left shoulder pain, she is chronically in a wheelchair and manages with aids of her caretakers she is able to transfer times by herself Past Medical History - Allergies and Home Meds Allergies/Adverse Reactions: Allergies sumatriptan [From Imitrex] Adverse Reaction (Verified 04/08/19 13:33) Vomiting sumatriptan succinate [From Imitrex] Adverse Reaction (Verified 04/08/19 13:33) Vomiting BEE STING Allergy (Uncoded 03/13/19 15:08) Anaphylaxis PAPER TAPE Adverse Reaction (Uncoded 03/13/19 15:08) Rash Primary Care Physician: Fatoumata Rosen MD [Primary Care Provider] - Past Medical History: - - Has knee and hip surgery and arthritis related to the above makes it hard for her to walk Surgical History: cholecystectomy, total hip arthroplasty, total knee arthroplasty - Bilateral, - - Surgery for wrist fracture, surgery for shoulder dislocation Smoking Status: Current every day smoker - Family History Paternal Family History: Reports: Heart Disease Maternal Family History: Reports: - - liver failure Review of Systems General: Reports: -. Denies: Chills, Fever, Sweats Eyes: Denies: Visual changes - bilaterally, Diplopia ENT: Denies: Rhinorrhea, Sore throat Cardiovascular: Denies: Chest pain, Palpitations Respiratory: Denies: Dyspnea, Cough, Dyspnea on exertion Gastrointestinal: Denies: Abdominal pain, Nausea, Vomiting, Diarrhea, Melena, Hematochezia Genitourinary: Denies: Dysuria, Hematuria, Frequency Musculoskeletal: Reports: -. Denies: Back pain, Extremity Pain Skin: Denies: Rash, Wounds Neurological: Denies: Headache, Weakness, Numbness Physical Exam Vital Signs/Narrative: Vital Signs Temp Pulse Resp BP Pulse Ox 04/08/19 13:37 98.1 F 04/08/19 13:34 98.1 F 78 16 131/69 H 96 General: Well nourished, Well developed, No Acute Distress Head: Normocephalic, Atraumatic Eyes: Perrl, EOMI ENT: Moist mucous membranes, No rhinorrhea Neck: Supple, Nontender Cardiovascular: Regular rate, Regular rhythm, No murmurs Respiratory: No distress, CTA bilaterally, Chest nontender Abdomen: Soft, Nontender, Nondistended, Normal bowel sounds Back: Nontender, Normal Inspection Extremities: No edema, Tenderness, - - Please note she does have a Velcro wrist brace to the right wrist that she is wearing related to an older orthopedic condition that she is currently under care for she has no complaints of pain to the right upper extremity Skin: Normal color, No rash Neurological: Alert, Oriented x3, Cranial nerves II-XII grossly intact, Normal Strength, Normal Sensation Psychological: Normal affect, Normal Mood Diagnostic/Tx/Re-eval - Medical Decision Making She is awake and alert she indicates clearly she did not fall she does use her arm to brace herself she denies strike her head or strike her shoulder X-rays obtained per radiology shows nothing acute I explained this to her she is comfortable discharge home I recommended a sling she does not wish to use the sling she is here with her wheelchair she states she only goes home with a [employer] ([employer]) who are comfortable providing her assistance getting into her home and again she can manage with the aid of her caretakers she will follow-up with her orthopedic surgeon who she is seeing for a right wrist problem Final impression Near fall left shoulder injury Home stable ED Disposition - Plan for ED Patient: Instructions: FALL, Mechanical, Shoulder Contusion, SHOULDER PAIN (Uncertain Cause) Referrals: Fatoumata Rosen MD [Primary Care Provider] - Additional Instructions: Follow-up with your orthopedic surgeons, have your aides help you get into the wheelchair
== END 2019-04-08 15:12 | disposition home or self-care (01) ==
LOC: ED 13:59
PROVIDERS: Emergency Provider Emergency Medicine; Family Provider Internal Medicine; PCP Internal Medicine
DX: S49.92XA Unspecified injury of left shoulder and upper arm, initial encounter (principal); X50.1XXA Overexertion from prolonged static or awkward postures, initial encounter; Y93.9 Activity, unspecified; Y92.9 Unspecified place or not applicable; Z99.3 Dependence on wheelchair; F17.200 Nicotine dependence, unspecified, uncomplicated
CPT/HCPCS: 73030; 99284

== ENCOUNTER → 2019-04-17 06:15 | Outpatient (CLI) | payer MEDICARE, MEDICAID, SELFPAY ==
[2019-04-13 07:52] VITALS: BMI 45.6
--- NOTE | 2019-04-17 06:16 | MRI_ITS ---
STUDY: MRI LEFT SHOULDER REASON FOR EXAM: Female, 63 years old. LEFT shoulder pain and decreased ROM following injury. TECHNIQUE: Standardized fat and water weighted pulse sequences were obtained in all 3 orthogonal planes. COMPARISON: None. FINDINGS: Tendinosis of the supraspinatus with full-thickness tear 1.0 cm proximal to the insertion with retraction of 0.8 cm, series 5 images 02/15 through 04/17. There is infraspinatus tendinosis with tendon thickening, but without a demonstrated tendon tear. There is subscapularis tendinosis with tendon thickening, but without a demonstrated tendon tear. Normal teres minor tendon. There is mild muscular atrophy of the supraspinatus muscle. Normal infraspinatus muscle. Normal subscapularis muscle. Normal teres minor muscle. There is a small volume joint effusion of the glenohumeral joint. There is a cortical erosion at the insertion of the supraspinatus tendon. There is mild edema of the humeral head. Normal biceps labral complex. Normal intracapsular long biceps tendon. Normal labrum. Normal capsulo- ligamentous complex. Normal rotator interval. There is mild osteoarthritis of the acromioclavicular articulation. There is a Type II morphology (curved) acromion, with a neutral orientation. There is minimal fluid distention of the subacromial bursa, consistent with mild subacromial-subdeltoid bursitis. Normal visualized coracohumeral and coracoacromial ligaments. Normal quadrilateral space. Normal axillary space. Normal deltoid muscle. Normal trapezius muscle. MRI/Upper Ext Joint Only(Routine) IMPRESSION: Rotator cuff tear of the supraspinatus tendon. Tendinosis of the infraspinatus and subscapularis. Joint effusion. Subacromial subdeltoid bursitis. Electronically Signed: Anrel Murillo MD at 9:04 EST , Service support ,
== END ==
PROVIDERS: Family Provider Internal Medicine; PCP Internal Medicine; Referring Provider Orthopaedic Surgery; Visit Provider Orthopaedic Surgery
DX: M25.312 Other instability, left shoulder (principal)
CPT/HCPCS: 73221

== ENCOUNTER 2019-05-07 05:29 | Day surgery (SDC) | payer MEDICARE, MEDICAID, SELFPAY ==
[2019-04-27 08:03] VITALS: BMI 45.6
[2019-05-07 06:11] VITALS: BP 104/62; PULSE 82; RESP 16; TEMP 37.2; O2SAT 95; BMI 40.2
[2019-05-07 06:11] LABS: Bedside Glucose 109 mg/dL (70-110)
[2019-05-07] MEDS: Lactated Ringers 1,000 ML 100 ML IV (06:27)
[2019-05-07] MEDS: Cefazolin 2 GM in 0.9% Normal Saline 100 ML IV (07:26)
[2019-05-07] MEDS: Epinephrine (1 mg/ml) 1 MG/ML VIAL (07:26)
--- NOTE | 2019-05-07 07:36 | PCM.HP.BLA ---
History and Physical Date of Admission: 05/07/19 Intake Intake Visit Reasons: MRI follow up Allergies sumatriptan [From Imitrex] Adverse Reaction (Verified 04/08/19 13:33) Vomiting sumatriptan succinate [From Imitrex] Adverse Reaction (Verified 04/08/19 13:33) Vomiting BEE STING Allergy (Uncoded 03/13/19 15:08) Anaphylaxis PAPER TAPE Adverse Reaction (Uncoded 03/13/19 15:08) Rash [facility] Social History (Updated 04/27/19 @ 10:50 by Juan Nunes DO) Smoking Status: Current every day smoker HPI MRI follow up: Details: Parts of this documentation were recorded by a scribe, this documentation accurately reflects the service provided and the decisions made by me, Juan Nunes DO 04/27/19 0756. DAVID LOWE is a 63 year old F here today for f/u on left shoulder MRI. She continues to have pain all over the shoulder that increases with any rom. She has difficulties with all ADLs. She presents in a wheelchair today and Denies numbness, tingling or other associated symptoms. She is primarily in a wheelchair due to the inability to use a walker. She is using nicotine gum now for a month. ROS [facility] Reports joint pain, Reports limited joint movement, Reports muscle weakness, Reports stiffness Skin/Breast Reports system reviewed and no additional complaints, except as docu Neuro Yes system reviewed and no additional complaints, except as docu Ortho Exam Left Shoulder Testing: No AROM-Forward Elevation 0-180, No AROM-External Rotation at side 0-60 SHOULDER: Left Shoulder Skin/Wound: No ecchymosis, No erythema, Yes swelling Testing: Yes TTP Biceps, No AROM-Forward Elevation 0-180 (40), No AROM-External Rotation at side 0-60, No PROM-Forward Elevation 0-180 (60) SHOULDER: significant postural kyphosis, 30 abd, 2/4 radial pulse states she does have some tingling over deltoid and throughout the arm. Supplemental Info 04/17/2019 MRI left shoulder full-thickness tear supraspinatus with retraction about 1 cm mild muscular atrophy Assessment & Plan Problems 1. Traumatic complete tear of left rotator cuff, subsequent encounter S46.012D Plan Explained that she does have a RTC tear. Reviewed the surgical repair and the use of the sling for 6wks and 3 months of rehab until strengthening with 6 month recovery. Explained that she will be unable to use the arm for many months. She would also need home PT after surgery. The conservative care option is long-term care for strengthening but patient declines. Explained that she should be nicotine and tobacco free for surgery. Reviewed the pre-operative plans with the patient. Risks and benefits of the procedure were fully explained, including but not limited to infection, neurovascular injury, continued pain, arthritis, stiffness, need for further surgery, re-injury, DVT, PE, general risks of anesthesia, and loss of limb or life. The patient understands all the risks and does wish to proceed with written consent. Follow up postop or sooner if pain, swelling, numbness or associated symptoms, or concerns develop. All questions answered. Patient in agreement of plan. Coding Level of Care Code Off vis,est,level 3 Diagnoses Traumatic complete tear of left rotator cuff, subsequent encounter S46.012D ??Encounter type: subsequent encounter ??Rotator cuff tear extent: complete ??Rotator cuff tear trauma status: traumatic I have re-examined the patient. There are no clinical changes since date of exam
[2019-05-07 08:09] LABS: Hemoglobin A1c 5.3 % (4.2-6.3)
[2019-05-07] MEDS: Bupivacaine Mpf 0.5% 30 ML VIAL (08:49)
[2019-05-07] MEDS: Bupiv/Epi 0.5% Mpf 30 ML Vial (08:50)
--- NOTE | 2019-05-07 09:00 | PCM.DC.ORTHO ---
Discharge Diet: 2200 Calorie Control Diet Call your doctor if you observe: Shortness of breath, Chest pain Additional Instructions: Leave the dressing on and intact for 48 hours. ice shoulder 15 min on and 15 mins off next 72 hrs. Then may remove and shower with warm water and antibacterial soap. But do not submerge in tub for 3 weeks. May remove sling for elbow range of motion and pendulum exercises only. then replace sling. No active shoulder motion. You can not bear any weight through operative extremity. encourage finger and wrist range of motion. Doxycycline is for improved rotator cuff healing take as directed. if any concerns call Dr. Nunes's office. Allergies/Adverse Reactions: Allergies sumatriptan [From Imitrex] Adverse Reaction (Verified 05/07/19 06:10) Vomiting sumatriptan succinate [From Imitrex] Adverse Reaction (Verified 05/07/19 06:10) Vomiting BEE STING Allergy (Uncoded 05/07/19 06:10) Anaphylaxis PAPER TAPE Adverse Reaction (Uncoded 05/07/19 06:10) Rash Medications to take at Discharge Ziprasidone HCl [Geodon] 80 mg PO BID 07/11/13 Pravastatin [Pravachol] 80 mg PO QHS 09/07/15 Phenytoin Sodium Extended [Dilantin] 200 mg PO BID 12/02/17 Albuterol Inhaler [Ventolin Hfa] 2 puff INHALATION Q6H PRN PRN 02/20/18 Hydroxyzine Pamoate [Vistaril] 100 mg PO TID PRN PRN 02/20/18 Clonazepam 0.5 mg PO BID 11/14/18 Divalproex (ER) [Depakote ER] 500 mg PO BID 11/14/18 Magnesium Oxide [Magnesium] 400 mg PO DAILY 11/14/18 Topiramate 200 mg PO BID 11/14/18 Mirtazapine [Remeron] 30 mg PO QHS 03/13/19 Prazosin HCl 4 mg PO QHS 03/13/19 Venlafaxine XR [Effexor Xr] 75 mg PO DAILY 03/13/19 Doxycycline 100 mg PO BID 14 Days #28 cap 05/07/19 Hydrocodone Bitart/Apap 5-325 [[place] 5MG-325MG] 1 - 2 tablet PO Q4H PRN PRN 7 Days #60 tablet 05/07/19 The following prescriptions were given: Doxycycline 100 mg PO BID 14 Days #28 cap Transmission Status: Pending to [facility] Hydrocodone Bitart/Apap 5-325 [[place] 5MG-325MG] 1 - 2 tablet PO Q4H PRN PRN 7 Days #60 tablet PRN Reason: Pain Transmission Status: Sent to [facility] Primary Care Physician: Fatoumata Rosen MD [Primary Care Provider] - Test Results: Test results from this visit will be discussed in further detail at your follow-up appointment, if applicable. Please Follow Up With: Juan Nunes DO - 2 weeks
--- NOTE | 2019-05-07 09:04 | PCM.OPRPT ---
Report of Operation Date of Procedure: 05/07/19 Description of Surgical Findings:: Preoperative diagnosis: Left rotator cuff tear supra spinatus Postoperative diagnosis: Full-thickness supraspinatus rotator cuff tear anterior. 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 Procedure: Arthroscopic rotator cuff repair posterior labral debridement Implants: Arthrex 5.5 corkscrew double loaded anchor Anesthesia: General with interscalane block EBL: 25 cc Complications none Indication for procedure: This is a 63-year-old female status post fall in the bathroom MRI evidence of full-thickness rotator cuff tear wish to undergo rotator cuff repair risks benefits and alternatives of the procedure were reviewed including risk of bleeding infection nerve artery tissue damage need for further surgery continued pain postoperative stiffness and need for postoperative physical therapy and continued pain and retear. It was it was stressed to patient that she would not be able to weight-bear through this upper extremity for several months she understands. Procedure: Patient was met in the preoperative holding area the operative extremity was identified by both the patient and the physician and was marked. Patient was met by anesthesia and brought back to the operating room on a wheeled cart. Patient was transferred to the operating table in the supine position. Anesthesia was started. Patient was then positioned in the beach chair configuration. Bony prominences were well-padded. The patient was prepped and draped in the usual sterile fashion. A timeout was called to ensure the proper patient procedure and extremity were being contemplated. Anatomic landmarks were palpated and marked with a marking pen. A 0.25% Marcaine with epinephrine was injected into the planned portal sites. An 11 blade scalpel was used to make a stab incision in the posterior lateral portal. Arthroscope was inserted into the glenohumeral space with ease. Inflow and outflow tubes were attached and arthroscopic visualization began. An anterior portal was established with an 18-gauge spinal needle. There was grade 3 cartilage wear of the humeral head no loose bodies there was some tearing of the superior and posterior labrum which was debrided with a shaver the rotator cuff was evaluated and was found to have a full-thickness tear of both supraspinatus anterior. The axillary pouch was investigated and was free of loose bodies. The subscapularis was intact. The arthroscope was then repositioned into the subacromial space and a lateral portal was established. A subacromial decompression with an ArthroCare wand and shaver was performed. There was noted to be there was no significant spurring of the acromion or clavicle [The bursal side of the rotator cuff was evaluated . Using a shaver to prepare the footprint a double loaded 5.5 corkscrew was placed individual limbs were passed and tied. Excellent repair was achieved. The wound was thoroughly irrigated through the scope followed by a subacromial injection with 4 mg of morphine and 8 cc of 0.5% Marcaine plain. Suture portals were closed with 3-0 nylon arthroscopic stitches followed by Xeroform 4 x 4 ABD and a Ioban dressing. A abduction sling and pillow was placed. Anesthesia was reversed and patient tolerated the procedure well was and was transferred to the PACU. All counts were correct patient will follow-up in the office in 2 weeks . Patient may begin active elbow and wrist range of motion and pendulums of the shoulder but no active shoulder motion, dressing is to be left on for 48 hours before being changed daily after showering
[2019-05-07 09:16] VITALS: BP 104/62; BP 124/90; PULSE 86; RESP 20; TEMP 36.3; O2SAT 94
[2019-05-07 09:30] VITALS: BP 104/62; BP 111/58; PULSE 75; RESP 18; O2SAT 93
[2019-05-07 09:45] VITALS: BP 104/62; BP 121/70; PULSE 77; RESP 16; TEMP 36.3; O2SAT 93
[2019-05-07 09:51] LABS: Bedside Glucose 150 mg/dL (70-110)
[2019-05-07 10:20] VITALS: BP 104/62
== END 2019-05-07 10:22 | disposition home or self-care (01) ==
LOC: SDC 05:31 → AC 05:33
PROVIDERS: Anesthesiology; Family Provider Internal Medicine; PCP Internal Medicine; Referring Provider Orthopaedic Surgery; Visit Provider Orthopaedic Surgery
PROC: (CPT 29827; principal; 2019-05-07 07:10)
DX: S46.012D Strain of muscle(s) and tendon(s) of the rotator cuff of left shoulder, subsequent encounter (principal); M94.212 Chondromalacia, left shoulder; M40.00 Postural kyphosis, site unspecified; I10 Essential (primary) hypertension; E11.9 Type 2 diabetes mellitus without complications; I25.2 Old myocardial infarction; E78.00 Pure hypercholesterolemia, unspecified; J44.9 Chronic obstructive pulmonary disease, unspecified; Z87.891 Personal history of nicotine dependence; Z88.8 Allergy status to other drugs, medicaments and biological substances
CPT/HCPCS: 01630; 29827; 82962; 83036; J7120; C1713; J2405

== ENCOUNTER 2019-06-13 22:42 | Emergency (ER) | payer MEDICARE, MEDICAID, SELFPAY ==
[2019-05-22 07:50] VITALS: BMI 40.2
[2019-06-13 22:44] VITALS: BP 108/95; PULSE 99; RESP 18; TEMP 36.8; O2SAT 95; BMI 40.2
--- NOTE | 2019-06-13 23:08 | ED.RN ---
PT MEDICATIONS BROUGHT TO ED PER EMS. ENTERRED INTO COMPUTER, AND THEN PLACED IN BELONGINGS BAG AND SECURED. PT ALSO REPORTS HAVING 100$ IN HER PURSE. THIS RN OFFERED TO HAVE HER MONEY LOCKED UP IN THE HOSPITAL SAFE, BUT THE PT REFUSED THE OFFER.
--- NOTE | 2019-06-13 23:13 | ED.DCSUM_ITS ---
- ER Visit Summary Date of Service: 06/13/19 Chief Complaint: Depression History of Present Illness: The patient is a 63 F who presents with depression that became worse over the past 3 weeks. Police brought the patient in and placed a pink slip on her. Police report the patient made multiple threats to h arm herself tonight. Currently, the patient denies any suicidal ideation. Patient states she has no plan for suicide. Patient states she has tried to commit suicide twice in the past once by overdosing on Percocet and the other time by trying to cut her wrists. Patient states she is depressed because her son will not let her see her grandkids. Physical Examination: Vital signs are stable. Patient is afebrile. Patient is in no acute distress. Oral mucosa is pink and moist. Neck is supple. Trachea is midline. There is no JVD noted. Heart was regular rate and rhythm. Lungs are clear and equal bilaterally. Abdomen is soft. Bowel sounds are normal. There is no tenderness. There is no rebound or guarding noted. Skin is warm dry. Cranial nerves II through XII are intact. There are no focal motor or sensory deficits noted. Patient does have a flat affect and a depressed mood. Patient currently denies any suicidal or homicidal ideations. Test Results: CBC, basic metabolic profile, and urinalysis were obtained were all within normal limits. Urine tox screen is positive for opiates. Serum alcohol level is negative. Emergency Department Course and Treatment: Sharda from crisis was in to evaluate the patient. She does not feel the patient is suicidal at this time. She will follow-up with the patient as an outpatient with crisis counseling. Patient understands and is agreeable with the plan. All questions were answered. Disposition: Discharge home Impression: Depression This note was generated with [employer] dictation software. It may contain incorrect words, spelling, and punctuation that were not noted in review of the chart vaishali or to signing ED Disposition - Plan for ED Patient: Disposition: Home or Assisted Living Diagnosis: Depression Instructions: CONTRACT, No Harm, Depression Referrals: Fatoumata Rosen MD [Primary Care Provider] - 5-7 Days Counseling,Center [GROUP OF PHYSICIANS] - 2 Days
[2019-06-13 23:41] LABS: Bacteria 0 SEEN /hpf (None Seen); Mucous, Urine 0 SEEN /hpf (<or=2+); Red Blood Cells-Urine 0 SEEN /hpf (0-5); Squamous Epithelial Cells - UA 0 SEEN /hpf (5-10); White Blood Cells 0 SEEN /hpf (0-5)
[2019-06-13 23:45] LABS: Color, Urine Yellow (Yellow); Glucose, Dipstick Normal (Normal); Ketone-Dipstick Negative (Negative); Leukocyte Esterase-Dipstick Negative /ul (Negative); Nitrite-Dipstick Negative (Negative); Occult Blood-Urine Negative /ul (Negative); Protein-Dipstick Negative (Negative); Specific Gravity, Urine 1.015 (1.002-1.030); Urine Bilirubin Dipstick Negative (Negative); Urine Clarity Sl. Cloudy (Clear); Urine Urobilinogen Normal (Normal)
[2019-06-13 23:54] LABS: Absolute Lymphocyte Count 2.95 X10^3/uL (0.83-4.51); Absolute Neutrophil Count 3.9 X10^3/uL (2.0-7.7); Basophil# 0.09 X10^3/uL; Basophil% 1.1 % (0-1); Eosinophil# 0.42 X10^3/uL; Eosinophils% 5.1 % (0-5); Hemoglobin 14.7 g/dL (12.0-15.0); Lymphocyte # 2.95 X10^3/ul (4.0); Lymphocyte % 36.1 % (19-41); Mean Corp Hgb Conc 33.4 g/dL (32-36); Mean Corpuscular Hgb 32.7 pg (27.0-32.0); Monocyte# 0.81 X10^3/uL; Monocyte% 9.9 % (0-10); NRBC Flagged by Analyzer 0 % (0-5); Neutrophil # 3.88 X10^3/uL (2.7-7.7); Neutrophil % 47.6 % (47-70); Platelet Count 269 K/mm3 (150-450); RBC Distribution Width SD 46.2 fl (35.1-43.9); Red Blood Count 4.49 M/mm3 (4.2-5.4); White Blood Count 8.2 K/mm3 (4.4-11.0)
[2019-06-13 23:58] VITALS: RESP 17
[2019-06-13 23:59] LABS: ALB/GLOB Ratio 0.8 RATIO (0.9-2.4); AST(SGOT) 11 U/L (15-37); Alanine Aminotransfer ALT/SGPT 17 U/L (13-56); Albumin, Serum 3.2 g/dL (3.2-5.0); Alkaline Phosphatase 115 U/L (45-117); Anion Gap 2 (5-15); BUN 17 mg/dL (7-18); BUN/Creat Ratio 21.7 RATIO (10-20); Calcium,Total 9.1 mg/dL (8.5-10.1); Chloride 111 mmol/L (98-107); Creatinine, Serum 0.78 mg/dL (0.55-1.02); EST Glomerular Filtration Rate 79 mL/min (>60); Est Glom Filt Rate - Afr Amer 96 mL/min (>60); Estimated Creatinine Clearance 59.15 ml/min; Globulin 3.8 g/dL (2.2-4.2); Glucose 107 mg/dL (74-106); Potassium 3.9 mmol/L (3.5-5.1); Sodium Level 142 mmol/L (136-145)
[2019-06-14 00:02] LABS: Amorphous Sediment 2+
--- NOTE | 2019-06-14 00:42 | ED.RN ---
PT GIVEN WRITTEN AND VERBAL DISCHARGE INSTRUCTIONS AND HOME GOING PAPERWORK. PT TO FOLLOW UP WITH COUNSELING CENTER. PT DRESSES SELF, ASSISTED WITH PLACING SHOES ON. THIS RN CONTACTED CAB PER PT REQUEST FOR A RIDE HOME.
[2019-06-14 01:02] LABS: Amphetamine Urine VISTA NEGATIVE (<1000 ng/mL); Barbiturate Urine VISTA NEGATIVE (< 200 ng/mL); Benzodiazepine Urine VISTA NEGATIVE (< 200 ng/mL); Cocaine Urine VISTA NEGATIVE (< 300 ng/mL); Ecstacy Urine VISTA NEGATIVE (< 500 ng/mL); Methadone Urine VISTA NEGATIVE (< 300 ng/mL); PCP Urine VISTA NEGATIVE (< 25 ng/mL); THC Urine VISTA NEGATIVE (< 50 ng/mL); Vista UDS pH Range 6
[2019-06-14 01:10] LABS: Alcohol, Blood (Medical)-Serum < 3.0 mg/dL
== END 2019-06-14 00:47 | disposition home or self-care (01) ==
PROVIDERS: Emergency Provider Emergency Medicine; PCP Internal Medicine
DX: F32.9 Major depressive disorder, single episode, unspecified (principal); Z79.899 Other long term (current) drug therapy; I10 Essential (primary) hypertension; F20.9 Schizophrenia, unspecified; F43.10 Post-traumatic stress disorder, unspecified; Z72.0 Tobacco use
CPT/HCPCS: 80053; 80307; 80320; 81001; 85025; 99285; G0480

== ENCOUNTER 2019-06-22 01:01 | Inpatient (IN) | payer MEDICARE, MEDICAID, SELFPAY ==
[2019-06-22] VITALS (34 sets, daily range): BP systolic 103–135; BP diastolic 53–99; PULSE 41–88; RESP 14–24; TEMP 36.6–36.9; O2SAT 92–98; BMI 45.1; BMI 43.2; BMI 43.3
--- NOTE | 2019-06-22 01:53 | RAD_ITS ---
HISTORY: c/o cp and sob. Smoker. States she tested positive to influenza a Tamp; b on Saturday. Patient refused to move her left arm at all EXAM: XR Chest 2 Views: COMPARISON: November 19, 2018 FINDINGS: # of images incl. paperwork: 2 Lungs are clear. Heart is not enlarged. Kyphoscoliosis with mild multilevel degenerative disc disease. Gaseous distention of the hepatic flexure of colon further elevating the right hemidiaphragm has diminished and/or resolved since the previous study Pulmonary vascularity is distinct. No effusions. RAD/Chest PA and Lateral IMPRESSION: No acute cardiopulmonary disease perceived. at 0305 Reported and signed by: Kamran Morgan MD Electronically Signed: Kamran Morgan MD at 3:04 EST Tel , Service support ,
--- NOTE | 2019-06-22 01:53 | EKG12_ITS ---
Test Reason : CP Blood Pressure : / mmHG Vent. Rate : 061 BPM Atrial Rate : 061 BPM P-R Int : 192 ms QRS Dur : 076 ms QT Int : 398 ms P-R-T Axes : 010 -14 002 degrees QTc Int : 400 ms Normal sinus rhythm Minimal voltage criteria for LVH, may be normal variant Inferior infarct , age undetermined Abnormal ECG Confirmed by JAIME GENAO ([id number]), city editor KRISTIE LONG ([id number]) on 06/23/2019 1:58:51 PM Referred By: ELGIN Confirmed By:JAIME GENAO
--- NOTE | 2019-06-22 01:54 | ED.VIS.CHEST ---
History of Present Illness Chief Complaint: Chest Pain Informant: Patient Onset: Today - all day this past day, with coughing Activity at onset: - - coughing Timing: Intermittent Location: Substernal - without radiation Current Severity: Mild Maximum Severity: Moderate Worsened By: Coughing. Not Worsened By: Breathing Relieved By: Nothing Associated Symptoms: Dyspnea - copd flaring up, Cough - occ productive of green sputum, occ small amts of blood. Negative for: Nausea, Vomiting, Fever, Lightheadedness, Palpitations Narrative: Patient states she has had a cough with increased COPD symptoms since 2 days ago, for less than a minute and then it goes away. She has been feeling some tightness in her lungs, wheezing. No swelling in her legs. No recent long trips, hospitalizations, or surgeries. No history of blood clots. She denies being on an anticoagulant. She has a history of COPD and is not on home oxygen. She states since 2 days ago she has had trouble keeping her medications down because of coughing them up. She denies any nausea or vomiting. 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 Past Medical History - Allergies and Home Meds Allergies/Adverse Reactions: Allergies sumatriptan [From Imitrex] Adverse Reaction (Verified 06/22/19 01:13) Vomiting sumatriptan succinate [From Imitrex] Adverse Reaction (Verified 06/22/19 01:13) Vomiting BEE STING Allergy (Uncoded 06/22/19 01:13) Anaphylaxis PAPER TAPE Adverse Reaction (Uncoded 06/22/19 01:13) Rash Primary Care Physician: Fatoumata Rosen MD [Primary Care Provider] - Surgical History: cholecystectomy, total hip arthroplasty, total knee arthroplasty - Bilateral, - - Surgery for wrist fracture, surgery for shoulder dislocation Lives: Alone Smoking Status: Current every day smoker - Family History Paternal Family History: Reports: Heart Disease Maternal Family History: Reports: - Review of Systems General: Reports: Malaise. Denies: Chills, Fever, Sweats Eyes: Denies: Visual changes - bilaterally, Diplopia ENT: Denies: Bilateral ear pain, Rhinorrhea, Sore throat Cardiovascular: Reports: Chest pain. Denies: Palpitations Respiratory: Reports: Dyspnea, Cough, Sputum, Dyspnea on exertion. Denies: Orthopnea Gastrointestinal: Reports: Abdominal pain - Soreness from all of the coughing, diffusely. Denies: Nausea, Vomiting, Diarrhea, Melena, Hematochezia Genitourinary: Denies: Dysuria, Hematuria, Frequency Musculoskeletal: Denies: Myalgias, Neck pain, Back pain, Swelling, Extremity Pain Skin: Denies: Rash, Wounds Neurological: Denies: Headache, Weakness, Numbness Physical Exam Vital Signs/Narrative: Vital Signs Temp Pulse Resp BP Pulse Ox 06/22/19 01:06 97.9 F 77 21 H 117/86 H 3 Inital Vital Signs reviewed: Yes General: Well nourished, Well developed, No Acute Distress Head: Normocephalic, Atraumatic Eyes: Perrl, EOMI ENT: Moist mucous membranes, No rhinorrhea Neck: Supple, Nontender, No lymphadenopathy, No JVD Cardiovascular: Regular rate, Regular rhythm, No murmurs Respiratory: No distress, Chest nontender, Wheezing. Negative for: Rales, Rhonchi Abdomen: Soft, Nontender, Nondistended, Normal bowel sounds Back: Nontender, Normal Inspection Extremities: Nontender, No edema. Negative for: Calf Tenderness Skin: Normal color, No rash Neurological: Alert, Oriented x3, Cranial nerves II-XII grossly intact, Normal Strength, Normal Sensation Psychological: Normal affect, Normal Mood Diagnostic/Tx/Re-eval Chest X-Ray - ED: 2 View, Read by ED Physician, No Acute Disease Laboratory Tests 06/22/19 06/22/19 Range/Units 01:15 01:15 WBC 7.4 (4.4-11.0) K/mm3 RBC 4.08 L (4.2-5.4) M/mm3 Hgb 12.9 (12.0-15.0) g/dL Hct 39.2 (37-47) % MCV 96.1 (81-99) fL MCH 31.6 (27.0-32.0) pg MCHC 32.9 (32-36) g/dL RDW Std Deviation 44.7 H (35.1-43.9) fl RDW Coeff of Lenora 12.6 (11.6-14.6) % Plt Count 223 (150-450) K/mm3 MPV 12.1 H (6.2-12.0) fl Immature Gran % (Auto) 0.100 (0.0-0.9) % Neut % (Auto) 33.3 L (47-70) % Lymph % (Auto) 48.4 H (19-41) % Mccone % (Auto) 12.2 H (0-10) % Eos % (Auto) 5.1 H (0-5) % Baso % (Auto) 0.9 (0-1) % Absolute Neuts (auto) 2.5 (2.0-7.7) X10^3/uL Absolute Lymphs (auto) 3.60 (0.83-4.51) X10^3/uL Nucleated RBC % 0 (0-5) % Sodium 142 (136-145) mmol/L Potassium 3.5 (3.5-5.1) mmol/L Chloride 111 H (98-107) mmol/L Carbon Dioxide 27.0 (21.0-32.0) mmol/L Anion Gap 4 L (5-15) BUN 12 (7-18) mg/dL Creatinine 0.60 (0.55-1.02) mg/dL Estim Creat Clear Calc 76.89 ml/min Est GFR (MDRD) Af Amer 131 (>60) mL/min Est GFR (MDRD) Non-Af 108 (>60) mL/min BUN/Creatinine Ratio 20.1 H (10-20) RATIO Glucose 95 (74-106) mg/dL Calcium 8.9 (8.5-10.1) mg/dL Troponin I < 0.015 (<0.045) ng/mL - Rhythm Strip Rhythm Strip: Sinus Rhythm Rate: 61 Ectopy: None - EKG Initial EKG Interpretation: Sinus Rhythm, No Acute Injury Pattern - Leftward axis. Prior: Unchanged Treatment: Aspirin - Given prior to arrival, 324 mg, - - Amiodarone. Aerosols. - Medical Decision Making Patient feels better after treatment of her COPD. She had a run of ventricular tachycardia that lasted between 5-10 seconds. She felt palpitations but did not lose consciousness. It was wide-complex and certainly not atrial fibrillation. Her QTC is normal on the EKG. Started on amiodarone bolus/drip. Discussed with cardiology. They agree with this and also advise magnesium sulfate 2 g, and states that the amiodarone bolus can be just 75 mg. Will be admitted to the hospital. X-ray shows no pneumonia. I do not think her chest discomfort is sales representative printing of angina. Critical care time (excluding procedures): 30-74 minutes - 35 minutes, including time spent discussing with patient, consultants, arranging admission, performing direct patient care at the bedside. ED Disposition - Plan for ED Patient: Disposition: Acute Care Hospital [facility] Diagnosis: Ventricular tachycardia (paroxysmal), COPD exacerbation, Atypical chest pain, Acute bronchitis Referrals: Fatoumata Rosen MD [Primary Care Provider] -
[2019-06-22 02:01] LABS: Absolute Neutrophil Count 2.5 X10^3/uL (2.0-7.7); Basophil# 0.07 X10^3/uL; Basophil% 0.9 % (0-1); Eosinophil# 0.38 X10^3/uL; Eosinophils% 5.1 % (0-5); Hematocrit 39.2 % (37-47); Hemoglobin 12.9 g/dL (12.0-15.0); Lymphocyte % 48.4 % (19-41); Mean Corp Hgb Conc 32.9 g/dL (32-36); Mean Corpuscular Hgb 31.6 pg (27.0-32.0); Mean Corpuscular Volume 96.1 fL (81-99); Mean Platelet Vol. 12.1 fl (6.2-12.0); Monocyte# 0.91 X10^3/uL; Monocyte% 12.2 % (0-10); NRBC Flagged by Analyzer 0 % (0-5); Neutrophil # 2.47 X10^3/uL (2.7-7.7); Neutrophil % 33.3 % (47-70); Platelet Count 223 K/mm3 (150-450); RBC Distribution Width CV 12.6 % (11.6-14.6); RBC Distribution Width SD 44.7 fl (35.1-43.9); Red Blood Count 4.08 M/mm3 (4.2-5.4); White Blood Count 7.4 K/mm3 (4.4-11.0)
[2019-06-22] MEDS: MethylPREDNISolone 125 MG/2 ML Vial IV (02:04)
--- NOTE | 2019-06-22 02:07 | ED.RN ---
pt refused tylenol that was offered stating she does not need anything for pain.
[2019-06-22] MEDS: Ipratropium/Albuterol Sulfate 3 ML AMPUL.NEB INHALATION ×4 (02:12→14:42)
[2019-06-22 02:15] LABS: Anion Gap 4 (5-15); BUN 12 mg/dL (7-18); BUN/Creat Ratio 20.1 RATIO (10-20); Calcium,Total 8.9 mg/dL (8.5-10.1); Chloride 111 mmol/L (98-107); EST Glomerular Filtration Rate 108 mL/min (>60); Est Glom Filt Rate - Afr Amer 131 mL/min (>60); Estimated Creatinine Clearance 76.89 ml/min; Glucose 95 mg/dL (74-106); Potassium 3.5 mmol/L (3.5-5.1); Sodium Level 142 mmol/L (136-145)
[2019-06-22] MEDS: Albuterol 2.5 MG/3 ML VIAL.NEB. INHALATION (02:18)
--- NOTE | 2019-06-22 02:21 | CPS ---
Pt. refused Flu Nasal swab testing. aware.
--- NOTE | 2019-06-22 03:08 | PCM.HP.STD ---
Problem List (1) Non-sustained ventricular tachycardia Status: Acute (2) COPD exacerbation Status: Chronic (3) Ventricular tachycardia (paroxysmal) Status: Acute (4) Atypical chest pain Status: Acute (5) Acute bronchitis Status: Acute (6) Osteoarthritis Status: Chronic (7) Anxiety and depression Status: Chronic (8) Schizophrenia Status: Chronic Qualifiers: Schizophrenia type: unspecified Qualified Code(s): F20.9 - Schizophrenia, unspecified (9) COPD (chronic obstructive pulmonary disease) Status: Chronic Qualifiers: COPD type: unspecified COPD Qualified Code(s): J44.9 - Chronic obstructive pulmonary disease, unspecified (10) Tobacco use Status: Chronic (11) Morbid obesity Status: Chronic (12) Tobacco user Status: Chronic (13) Spondylosis of lumbar region without myelopathy or radiculopathy Status: Chronic (14) Diabetes Status: Chronic Qualifiers: Diabetes mellitus type: type 2 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: without marine oil terminal superintendent use Diabetes mellitus complication status: with unspecified complications (15) Legal blindness Status: Chronic (16) HTN (hypertension) Status: Chronic Qualifiers: Hypertension type: essential hypertension Qualified Code(s): I10 - Essential (primary) hypertension (17) MVP (mitral valve prolapse) Status: Chronic History of Present Illness Date of Admission: 06/22/19 Chief Complaint: cough The patient is a 63 year old F with a significant COPD; nasopharyngeal; partial blindness; posttraumatic stress syndrome who presented with a cough that started a day before presentation. Associated with her symptoms is productive cough. Patient reported she coughs to the point that she vomits her medications. She is concerned that because of cough with posttussive emesis she is not adequately getting pain psychiatry medications. She reports chest pain and rib pain with coughing. Also she reported palpitations. At the emergency department patient was found to be in ventricular tachycardia. Cardiology was notified following which magnesium infusion and amiodarone was recommended. Past Medical History Past Medical History (Chronic Problems): Chronic Problems COPD exacerbation (Chronic) Osteoarthritis (Chronic) Anxiety and depression (Chronic) Schizophrenia (Chronic) COPD (chronic obstructive pulmonary disease) (Chronic) Tobacco use (Chronic) Morbid obesity (Chronic) Tobacco user (Chronic) Spondylosis of lumbar region without myelopathy or radiculopathy (Chronic) Diabetes (Chronic) Legal blindness (Chronic) HTN (hypertension) (Chronic) MVP (mitral valve prolapse) (Chronic) Allergies sumatriptan [From Imitrex] Adverse Reaction (Verified 06/22/19 01:13) Vomiting sumatriptan succinate [From Imitrex] Adverse Reaction (Verified 06/22/19 01:13) Vomiting BEE STING Allergy (Uncoded 06/22/19 01:13) Anaphylaxis PAPER TAPE Adverse Reaction (Uncoded 06/22/19 01:13) Rash Home Medications: Ambulatory Orders Medication Instructions Recorded Ziprasidone HCl [Geodon] 80 mg PO BID 07/11/13 Pravastatin [Pravachol] 80 mg PO QHS 09/07/15 Phenytoin Sodium Extended 200 mg PO BID 12/02/17 [Dilantin] Albuterol Inhaler [Ventolin Hfa] 2 puff INHALATION Q6H PRN PRN 02/20/18 Hydroxyzine Pamoate [Vistaril] 25 mg PO TID 02/20/18 Clonazepam 0.5 mg PO BID 11/14/18 Divalproex (ER) [Depakote ER] 500 mg PO BID 11/14/18 Magnesium Oxide [Magnesium] 400 mg PO DAILY 11/14/18 Prazosin HCl 5 mg PO QHS 03/13/19 Calcium Carbonate/Vitamin D3 1 ea PO DAILY 06/13/19 [Oyster Shell Calcium-Vit D Tab] Potassium Chloride 10 meq PO BID 06/13/19 Hydrocodone/Acetaminophen 2 ea PO Q8H PRN 06/22/19 [Hydrocodon-Acetaminophen 5-325] Surgical History: cholecystectomy, total hip arthroplasty, total knee arthroplasty - Bilateral, - - Surgery for wrist fracture, surgery for shoulder dislocation Psychiatric History: Anxiety, Depression, 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 Denies: Shortness of breath at rest Gastrointestinal: Reports: Vomiting. Denies: Abdominal Pain, Nausea Genitourinary: Denies: Dysuria Musculoskeletal: Denies: Joint Pain, Joint Tenderness Skin: Denies: Rash, Wounds Neurological: Denies: Numbness, Tingling, Focal weakness Psychiatric: Denies: Anxiety, Depression, Homicidal Ideations, Suicidal Ideations Hematologic/ Lymphatic: Denies: Easy Bruising, Easy Bleeding VTE Information - Inpt Only VTE Present on Admission: No VTE Mechan Device Prophylaxis: None VTE Pharm Prophylaxis ordered?: Yes Patient Problems: Active and Suspected Problems Ventricular tachycardia (paroxysmal) (Acute) Atypical chest pain (Acute) Acute bronchitis (Acute) Non-sustained ventricular tachycardia (Acute) - Physical Exam Vitals/I&O's: Vital Signs Temp Pulse Resp BP Pulse Ox 97.9 F 66 16 124/63 H 95 06/22/19 01:12 06/22/19 02:12 06/22/19 02:12 06/22/19 02:02 06/22/19 02:12 Oxygen Delivery Method Room Air Weight: 111.9 kg Body Mass Index (BMI) 45.1 Finger Stick Blood Glucose 160 General: Alert, Oriented x3, Cooperative, - - Morbidly obese HEENT: Atraumatic, PERRLA, EOMI, Normocephalic Neck: Supple, No JVD, Negative Carotid Bruits Lungs: Rhonchi, Tachypneic, Wheezes Cardiovascular: Regular rate, No murmurs Abdomen: Bowel Sounds Present, Soft, Non Tender Extremities: No edema, Capillary Refill Less than 3 Seconds Skin: No rashes, No breakdown Musculoskeletal: No Tenderness to Palpation of Joints or Extremities Neurological: Cranial nerves II-XII grossly intact - Could not count fingers with the right eye. Psych/Mental Status: Normal Affect, Appropriate Laboratory Results 06/22/19 01:15: WBC 7.4, RBC 4.08 L, Hgb 12.9, Hct 39.2, MCV 96.1, MCH 31.6, MCHC 32.9, RDW Std Deviation 44.7 H, RDW Coeff of Lenora 12.6, Plt Count 223, MPV 12.1 H, Immature Gran % (Auto) 0.100, Neut % (Auto) 33.3 L, Lymph % (Auto) 48.4 H, [place] % (Auto) 12.2 H, Eos % (Auto) 5.1 H, Baso % (Auto) 0.9, Absolute Neuts (auto) 2.5, Absolute Lymphs (auto) 3.60, Nucleated RBC % 0 06/22/19 01:15: Sodium 142, Potassium 3.5, Chloride 111 H, Carbon Dioxide 27.0, Anion Gap 4 L, BUN 12, Creatinine 0.60, Estim Creat Clear Calc 76.89, Est GFR (MDRD) Af Amer 131, Est GFR (MDRD) Non-Af 108, BUN/Creatinine Ratio 20.1 H, Glucose 95, Calcium 8.9, Troponin I < 0.015 Assessment/Plan All Active Problems Ventricular tachycardia (paroxysmal) (Acute) Atypical chest pain (Acute) Acute bronchitis (Acute) Non-sustained ventricular tachycardia (Acute) Seizure (Resolved) Encephalopathy (Resolved) Accident due to mechanical fall without injury (Resolved) Atypical right-sided chest pain (Resolved) The patient is a 63 year old F with a significant COPD; nasopharyngeal; partial blindness; posttraumatic stress syndrome presented with a cough; shortness of breath and pleuritic pain consistent with acute exacerbation of COPD; and also found to have as well as palpitations and with a nonsustained V. tach. Acute COPD exacerbation Impression of chest x-ray: No acute cardiopulmonary process. Chest x-ray was independently reviewed. I agree with radiologist interpretation. Scheduled DuoNeb Albuterol as needed Solu-Medrol 125 mg given emergency department. Continue patient on Solu-Medrol 40 mg every 8 hours. Doxycycline ordered. Mucinex ordered Oxygen as needed. Monitor BMP and CBC Nonsustained V. tach Magnesium and amiodarone was ordered in the emergency department. We will continue patient on amiodarone infusion. Check magnesium level. Hold home potassium supplements. Give 40 mEq of potassium x1. Trend troponin. Cardiology consult. PTSD and schizophrenia Clonazepam continued. Depakote continued. Vistaril continued. Dilantin continued. Prazosin;topiramate and Geodon continued. DVT prophylaxis Subcutaneous Lovenox Code Visit Inpatient E&M: 28228 Init Hosp L3
[2019-06-22] MEDS: Amiodarone 360 MG in Dextrose 5% Viaflo Bag 192.8 ML 33.3 MG CONT INF (03:52)
[2019-06-22] MEDS: hydrOXYzine PAM 25 MG Capsule PO ×3 (06:11→21:36)
[2019-06-22] MEDS: Doxycycline 100 MG CAPSULE PO ×2 (06:11→21:35)
[2019-06-22] MEDS: guaiFENesin 1,200 MG Tablet 1200 MG PO ×2 (06:11→21:35)
[2019-06-22 06:26] LABS: Bedside Glucose 165 mg/dL (70-110)
--- NOTE | 2019-06-22 08:08 | PCM.CONS.C ---
Problem List (1) Ventricular tachycardia (paroxysmal) Status: Acute (2) Atypical chest pain Status: Acute (3) Non-sustained ventricular tachycardia Status: Acute Reason for Consult Date of Consultation: 06/22/19 Reason for Consultation: Wide-complex tachycardia, chest pain, COPD, tobacco abuse History of Present Illness: The patient is a 63 year old F, nondiabetic, current smoker, with COPD, schizophrenia, hypertension, and apparently might regurgitation who sees a sales training representative in [place] by the name of Dr. Jimenez. Patient has had no known coronary artery disease, denies previous catheterization, myocardial infarction, or ventricular arrhythmias. The patient apparently has been ill with significant cough, fevers, chills and had posttussive emesis seeking medical attention in [facility] ER. While she was coughing, she apparently developed wide-complex tachycardia which almost had a torsades appearance, which apparently was self terminating. She did not require cardioversion. Her baseline EKG shows normal sinus rhythm, normal axis, normal QT corrected interval. She was placed on IV amiodarone drip, admitted to the floor. Subsequent to that she has had no further wide-complex tachycardia. Patient was treated with magnesium IV as well. Patient was not initially treated with aspirin or antiplatelet therapy. In further history the patient complains of exertional chest pain for the past several weeks to months, both typical and atypical. This appears to be made worse when she had her arrhythmia. Her first troponin was negative, and second 1 is pending. [] Past Medical History Allergies/Adverse Reactions: Allergies sumatriptan [From Imitrex] Adverse Reaction (Verified 06/22/19 01:13) Vomiting sumatriptan succinate [From Imitrex] Adverse Reaction (Verified 06/22/19 01:13) Vomiting BEE STING Allergy (Uncoded 06/22/19 01:13) Anaphylaxis PAPER TAPE Adverse Reaction (Uncoded 06/22/19 01:13) Rash Home Medications: Ambulatory Orders Medication Instructions Recorded Ziprasidone HCl [Geodon] 80 mg PO BID 07/11/13 Pravastatin [Pravachol] 80 mg PO QHS 09/07/15 Phenytoin Sodium Extended 200 mg PO BID 12/02/17 [Dilantin] Albuterol Inhaler [Ventolin Hfa] 2 puff INHALATION Q6H PRN PRN 02/20/18 Hydroxyzine Pamoate [Vistaril] 25 mg PO TID 02/20/18 Clonazepam 0.5 mg PO BID 11/14/18 Divalproex (ER) [Depakote ER] 500 mg PO BID 11/14/18 Magnesium Oxide [Magnesium] 400 mg PO DAILY 11/14/18 Prazosin HCl 5 mg PO QHS 03/13/19 Calcium Carbonate/Vitamin D3 1 ea PO DAILY 06/13/19 [Oyster Shell Calcium-Vit D Tab] Potassium Chloride 10 meq PO BID 06/13/19 Hydrocodone/Acetaminophen 2 ea PO Q8H PRN 06/22/19 [Hydrocodon-Acetaminophen 5-325] Past Medical History (Chronic Problems): Chronic Problems COPD exacerbation (Chronic) Osteoarthritis (Chronic) Anxiety and depression (Chronic) Schizophrenia (Chronic) COPD (chronic obstructive pulmonary disease) (Chronic) Tobacco use (Chronic) Morbid obesity (Chronic) Tobacco user (Chronic) Spondylosis of lumbar region without myelopathy or radiculopathy (Chronic) Diabetes (Chronic) Legal blindness (Chronic) HTN (hypertension) (Chronic) MVP (mitral valve prolapse) (Chronic) Surgical History: cholecystectomy, total hip arthroplasty, total knee arthroplasty - Bilateral, - - Surgery for wrist fracture, surgery for shoulder dislocation Psychiatric History: Anxiety, Depression, Schizophrenia [employer] History: No pertinent [employer] history - *Family History Paternal History Items: Diabetes, Heart Disease, - - Liver failure Maternal History Items: - - Cirrhosis Lives: Alone Smoking Status: Current every day smoker Tobacco Use: Cigarettes Review of Systems - Review of Systems General: Reports: Fever, Malaise, Chills. Denies: Fatigue, Night Sweats Cardiovascular: Reports: Chest Discomfort with Exertion, Shortness of Breath, Shortness of Breath with Exertion. Denies: Chest Discomfort, Orthopnea, PND, Peripheral Edema, Palpitations, Lightheadedness, Dizziness, Near Syncope, Syncope Respiratory: Reports: Cough, Sputum Production. Denies: Hemoptysis Gastrointestinal: Denies: Hematemesis, Hematochezia, Melena Genitourinary: Denies: Dysuria, Hematuria Skin: Denies: Rash Subjectve: Patient laying in bed, no acute distress. Objective: Vital Signs Temp Pulse Resp BP Pulse Ox 98.3 F 41 L 18 126/68 H 94 06/22/19 07:00 06/22/19 07:49 06/22/19 07:00 06/22/19 07:00 06/22/19 07:00 Oxygen Delivery Method Room Air Weight: 236 lb 8.896 oz Body Mass Index (BMI) 43.2 Finger Stick Blood Glucose 160 Intake and Output for Last 24 Hours 06/20/19 06/21/19 06/22/19 23:59 23:59 23:59 Intake Total 309.84 / 309.84 Balance 309.84 / 309.84 General: Awake, Alert, Oriented x 3 HEENT: PERRL, EOMI, Sclera Non Icteric Neck: Supple, Good ROM, No Lymph Node Enlargement Lungs: Clear to auscultation Cardiovascular: Regular Rhythm, Normal S1, Normal S2, No Murmurs, No Rubs, No Gallops Vascular: No Carotid Bruits, Normal Femoral Pulses, Normal Radial Pulses, Normal Dorsalis Pedal Pulse, Normal Posterior Tibial Pulses Abdomen: Bowel Sounds Present, Soft, Non Tender, No HSM, No Organomegaly Extremities: No Cyanosis, No Clubbing, No edema Neurological: No Focal Motor or Sensory Deficit 06/22/19 01:15: WBC 7.4, RBC 4.08 L, Hgb 12.9, Hct 39.2, MCV 96.1, MCH 31.6, MCHC 32.9, Plt Count 223, MPV 12.1 H, Immature Gran % (Auto) 0.100, Neut % (Auto) 33.3 L, Lymph % (Auto) 48.4 H, Bea[place]gard % (Auto) 12.2 H, Eos % (Auto) 5.1 H, Baso % (Auto) 0.9, Absolute Neuts (auto) 2.5, Nucleated RBC % 0 06/22/19 01:15: Sodium 142, Potassium 3.5, Chloride 111 H, Carbon Dioxide 27.0, Anion Gap 4 L, BUN 12, Creatinine 0.60, Est GFR (MDRD) Af Amer 131, Est GFR (MDRD) Non-Af 108, BUN/Creatinine Ratio 20.1 H, Glucose 95, Calcium 8.9, Troponin I < 0.015 06/22/19 05:15: Troponin I < 0.015 Rhythm: EKG: Normal sinus rhythm, normal axis, normal intervals, no evidence of acute changes, normal QT corrected interval. ECHO: Pending Stress Test: Cardiac Cath: Pending PCI: CT Surgery: Holter monitor: EPS: PPM: CXR: Chest CT Scan: Assessment/Plan 1. Wide-complex tachycardia: The patient has several risk factors for coronary occlusive disease including her age, hypertension, tobacco abuse, and chest pain. I recommended the patient be loaded with 4 baby aspirin, 180 mg of Brilinta, and continue her amiodarone drip until we have established her coronary anatomy with a left heart catheterization. Patient was seen and examined this morning, the risk/benefits of the procedure were thoroughly explained the patient including specific attention to lack of onsite surgical backup. Depending upon the outcome of the catheterization will determine the need for long-term amiodarone therapy. Depending upon the outcome the catheterization will determine whether the patient requires intervention, medical therapy or bypass surgery. In the meantime recommend obtaining a 2D echo with Doppler to document her LV function, mitral valvular status, and pulmonary pressures. In addition I recommend that she start on Lopressor 12.5 mg p.o. twice daily. 2. Hyperlipidemia: Recommend obtaining a fast lipid profile for not already ordered. Her LDL should be less than 130. 3. Tobacco abuse: I had a long and thorough discussion with the patient and strongly recommend she discontinue all tobacco products. She claimed that she quit today. 3. Thank you very much for the opportunity to dissipate in the cardiac care of your patient. Consultation time took place between 745 and 8:20 AM. Code Visit Inpatient E&M: 12915 Init Hosp L2
--- NOTE | 2019-06-22 09:22 | NURSING ---
Q1H VSA dt Amiodarone gtt missed at 0800 d/t patient being off floor for heart catheterization
[2019-06-22] MEDS: Amiodarone 360 MG in Dextrose 5% Viaflo Bag 192.8 ML 16.7 MG CONT INF (09:23)
--- NOTE | 2019-06-22 09:31 | CL.D_ITS ---
Patient Name: DAVID LOWE Study Date: 06/22/2019 Performing: Conor Carreon MD Ht: 62 inches 157.48 cm : 1955 Wt: 243.3 lbs 110.22 kg Age: 63 Gender: female BSA: 2.08 PROCEDURE(S) PERFORMED ME54-XTH/COR/LV CLINICAL PROFILE AND INDICATIONS Indications: ACS <= 24 hrs, New Onset Angina <= 2 months, Suspected CAD, Cardiac Arrythmia Heart Failure: None Stress/Imaging Stress/Image Study Performed: No Angina Classification Anginal Classification w/in 2 Weeks: Anginal Equivalent Dyspnea CAD Presentations: Unstable angina. Other: Ventricular tachycardia Comorbidities/Risk Factors: Current/Recent Smoker (< 1year) Hypertension Chronic Lung Disease CONCLUSIONS Normal LV size, wall motion,and systolic function Normal Left Ventricular systolic function LVEF: by LV gram 65 % Elevated Left Ventricular End Diastolic Pressure Non obstructive coronary arteries RECOMMENDATIONS Management as per referring Nozzle Worker d/c devora d/c amio gtt, start toprol xl 25mg po daily. Manual sheath removal. DESCRIPTION OF PROCEDURE The patient arrived to the procedure lab. The risks and benefits of the procedure as well as a full d escription of our services here and current unavailability of surgical backup were fully explained to the patient and/or their significant other prior to the catheterization. The Timeout was completed, verifying the correct patient and procedure. The patient's procedural site was prepped and draped in the usual fashion. Local anesthetic was given subcutaneously to right groin region with Lidocaine 2%. Using a modified Seldinger technique, arterial access was obtained via the right femoral artery, a 4 Fr sheath was inserted Left Coronary Artery selective angiography was performed in multiple views us ing a 4 Fr. JL5 catheter. Left Coronary Artery selective angiography was performed in multiple views using a 4 Fr. JL4 catheter. Right Coronary Artery selective angiography was then performed in multipl e views using a 4 Fr. 3DRC catheter. Left Ventriculography was performed in DIAZ projection using a 4 Fr. Pigtail catheter. LV to AO pullback pressures were then recorded.The arterial sheath wa s pulled and manual compression applied until hemostasis is achieved. CORONARY ANGIOGRAPHY DOMINANCE: Co- Dominant LEFT HEART ASSESSMENT Left Ventricular Ejection Fraction: by LV Gram 65 % Normal LV wall motion Normal Left Ventricular systolic function LVEDP: 20 mmHg LEFT MAIN: Angiographically normal LEFT ANTERIOR DESCENDING ARTERY: MID LAD: Mild luminal irregularities less than 30% CIRCUMFLEX ARTERY: Angiographically normal RIGHT CORONARY ARTERY: Mild luminal irregularities less than 30% COMPLICATIONS No Complications PROCEDURE MEDICATIONS Versed 1 mg IV Oxygen: 2 L/min via nasal cannula Brilinta 180 mg PO 06/22/2019 08:10:02 Baby Aspirin (81mg) 4 Tabs PO @ 06/22/2019 08:10:48 IV Bolus: .9 NaCl 250ml total 06/22/2019 08:37:46 SUMMARY OF HEMODYNAMIC DATA Time AIR REST ECG 08:18:31 AO 100/53 (73) SA 08:37:35 LV 113/-9, 18 08:44:43 LV 111/-11, 15 08:44:50 LVp 114/-7, 20 08:44:57 AOp 103/54 (75) 08:45:02 Signed By Conor Carreon MD On 06/22/2019 09:30:51 Conor Carreon MD
[2019-06-22] MEDS: Magnesium Oxide 400 MG Tablet PO (10:42)
[2019-06-22] MEDS: Metoprolol(XL)Succ 25 MG Tablet PO (10:42)
[2019-06-22] MEDS: Ziprasidone HCl 20 MG Capsule 80 MG PO ×2 (10:42→21:35)
[2019-06-22] MEDS: clonazePAM 0.5 MG Tablet PO ×2 (10:42→21:35)
[2019-06-22] MEDS: Calcium Carb/Vitamin D 1 TABLET Tablet PO (10:42)
[2019-06-22] MEDS: Divalproex (ER) 500 MG Tablet PO ×2 (10:43→21:35)
[2019-06-22] MEDS: Phenytoin Na 100 MG Capsule 200 MG PO ×2 (10:43→17:02)
[2019-06-22] MEDS: Topiramate 200 MG Tablet PO ×2 (10:43→21:36)
--- NOTE | 2019-06-22 11:23 | CASEMGMT ---
RN CM Assessment Introduced role of RN CM to patient.? Patient is alert, oriented and able?to participate in RN CM Assessment. ?Care providers, pharmacy, and demographics verified. Presentation: Cough Admit Dx: Vtach Re-Admit: No Barriers/Issues: Patient states that her medications are in pill packs and her Aide gives her her medications from the pill packs but does not assist with crushing or putting in applesauce and states needs a nurse to give her medications. This automatic typewriter inspector discussed issues/concerns and informed HH Nurse dpoes not do this. Discussed options for Skilled Nursing care at facility to assist with this and if other needs become to challenging. Patient states that she has a service dog and cannot, discussed if there is family around to assist, states her son Nick works out of state and her Dtr Opal- not sure if she would. This automatic typewriter inspector discussed possibility of her Dtr getting paid to provide care and be her Aide instead of [employer]. States her Dtr is on Disability and if she does that concern she would get her Disability income taken away-encouraged her to discuss with her Dtr , Senior Systems Software Engineer Ifeoma or call Job and family services. Dtr does help her shower. Patient tearful during discussion and denies any other support around. PCP: Fatoumata Rosen Specialists: Neuro- Dr Sanchez, Pain- Dr Riggs, Psych- Dr Crawford Preferred Pharmacy: [facility] Insurance: [facility] A[facility]B, [facility] Rx Benefit:?Yes ?LNOK: Dtr Opal Trejo LW/HPOA: None, Information with rack card provided per request and informed can return as an outpatient to complete with dept if she chooses at a later time Living Arrangements: Lives alone in a trailer with a ramp. Has an Aide with [employer] 7days/week approx 8hrs/day provided by Gloria. Her Certified Phlebotomy Technician is Lola.? ADL?s: Patient is WC bound. Aide assists with all ADLs Transportation: [employer]: Manual WC, Shower Chair, BSC, RTS, Grab bars throughout home, Hand Held Shower head. HHC: Past with [facility] SNF: Past at [facility] Goal: Home and does not think will have any needs. Denies any issues, concerns, questions or needs with DC planning at this time. Aware CM remains available for any emerging needs. DC PLAN: Home with no anticipated needs identified at this time. Chaim Alegre RNCM
[2019-06-22 12:10] LABS: Magnesium 2.1 mg/dL (1.6-2.6)
[2019-06-22 12:55] LABS: Cholesterol 165 mg/dL (200); High Density Lipoprotein 47 mg/dL; Triglycerides 90 mg/dL; Very Low Density Lipoprotein 18 mg/dL (5-40)
[2019-06-22] MEDS: 0.9% Saline Lock 10 ML Syringe IV ×2 (13:17→21:36)
--- NOTE | 2019-06-22 14:29 | CASEMGMT ---
Addendum entered by Nicole Rivas 06/22/19 14:32: half-way added to PANCHO order at this time for med management. Spike DOMINGUEZ CM Original Note: Per [facility], pt is current with them for PT at this time. Resumption of care order placed at this time. Spike DOMINGUEZ CM
--- NOTE | 2019-06-22 14:47 | CHAPLAIN ---
Type of Pastoral Visit _x__ Initial Visit ___ Follow-up Visit ___ On-call Visit ___ General Patient Visit ___ Spiritual Assessment ___ Family Conference ___ Bereavement ___ Rapid Response ___ Code Blue ___ Other (describe below) Pastoral Care Referral From _x__ Patient ___ Family ___ Nurse ___ Physician ___ Editor News ___ Escrow Secretary ___ Other (describe below) Sacrament/Intervention _x__ Active listening ___ Anointing ___ Muslim ___ Bereavement ___ Communion ___ Serina exploration ___ ___ Life review _x__ Prayer ___ Reconciliation ___ Sacrament of Sick _x__ Supportive presence ___ Wedding ___ Other (describe below) Pastoral Comments patient requests that her pentecostalism be contacted about her admission;
--- NOTE | 2019-06-22 15:08 | CASEMGMT ---
SW received a call from Mary from [facility]. Patient has a medical alert system and she has an aide M-F for 5 hours each time and an aide on Saturday for about 3 hours. Mary asked ELÍAS to fax d/c instructions when done. Pastora JOSHI MSW
--- NOTE | 2019-06-22 19:00 | PCM.HOSP.N ---
Hospitalist Note He was seen and examined today, I talked about her care with cardiology today, she had a cardiac catheterization which showed no evidence of occlusive coronary disease. I talked to the patient briefly today but she did not feel she is ready to go home at this time and was still having some expiratory wheezes. I have decided to keep the patient in the hospital for now and monitor her respiratory status, she will remain on her present medications. Cardiology adjusted her medications also.
[2019-06-22] MEDS: Nystatin Powder 15gm Bottle 1 APPLIC TOPICAL (21:35)
[2019-06-22] MEDS: Doxazosin 4 MG Tablet PO (21:35)
[2019-06-22] MEDS: Pravastatin 80 MG Tablet PO (21:36)
[2019-06-22] MEDS: HYDROcodone Bitartrate/Apap 5/325 Tablet PO (22:16)
[2019-06-22] MEDS: MELATONIN 3 MG TABLET PO (22:16)
[2019-06-23] VITALS (11 sets, daily range): BP systolic 100–132; BP diastolic 53–66; PULSE 53–88; RESP 16–24; TEMP 36.7–36.9; O2SAT 90–98
[2019-06-23] MEDS: hydrOXYzine PAM 25 MG Capsule PO ×2 (05:20→12:35)
[2019-06-23] MEDS: 0.9% Saline Lock 10 ML Syringe IV (05:20)
[2019-06-23 06:33] LABS: Absolute Lymphocyte Count 2.51 X10^3/uL (0.83-4.51); Absolute Neutrophil Count 5.1 X10^3/uL (2.0-7.7); Basophil# 0.03 X10^3/uL; Basophil% 0.4 % (0-1); Eosinophil# 0.01 X10^3/uL; Eosinophils% 0.1 % (0-5); Hematocrit 39.2 % (37-47); Hemoglobin 12.8 g/dL (12.0-15.0); Lymphocyte # 2.51 X10^3/ul (4.0); Lymphocyte % 30.5 % (19-41); Mean Corp Hgb Conc 32.7 g/dL (32-36); Mean Corpuscular Hgb 31.8 pg (27.0-32.0); Mean Corpuscular Volume 97.5 fL (81-99); Mean Platelet Vol. 11.5 fl (6.2-12.0); Monocyte# 0.59 X10^3/uL; Monocyte% 7.2 % (0-10); NRBC Flagged by Analyzer 0 % (0-5); Neutrophil # 5.08 X10^3/uL (2.7-7.7); Neutrophil % 61.6 % (47-70); Platelet Count 245 K/mm3 (150-450); RBC Distribution Width CV 12.6 % (11.6-14.6); RBC Distribution Width SD 45.4 fl (35.1-43.9); Red Blood Count 4.02 M/mm3 (4.2-5.4); White Blood Count 8.2 K/mm3 (4.4-11.0)
[2019-06-23 06:56] LABS: Anion Gap 6 (5-15); BUN 15 mg/dL (7-18); BUN/Creat Ratio 23.8 RATIO (10-20); Calcium,Total 8.5 mg/dL (8.5-10.1); Chloride 112 mmol/L (98-107); Creatinine, Serum 0.63 mg/dL (0.55-1.02); EST Glomerular Filtration Rate 101 mL/min (>60); Est Glom Filt Rate - Afr Amer 123 mL/min (>60); Estimated Creatinine Clearance 73.23 ml/min; Glucose 127 mg/dL (74-106); Potassium 4.2 mmol/L (3.5-5.1); Sodium Level 144 mmol/L (136-145)
[2019-06-23] MEDS: Ipratropium/Albuterol Sulfate 3 ML AMPUL.NEB INHALATION ×2 (07:00→10:35)
[2019-06-23] MEDS: Phenytoin Na 100 MG Capsule 200 MG PO (08:48)
[2019-06-23] MEDS: Magnesium Oxide 400 MG Tablet PO (08:49)
[2019-06-23] MEDS: guaiFENesin 1,200 MG Tablet 1200 MG PO (08:49)
[2019-06-23] MEDS: Ziprasidone HCl 20 MG Capsule 80 MG PO (08:49)
[2019-06-23] MEDS: Doxycycline 100 MG CAPSULE PO (08:49)
[2019-06-23] MEDS: Divalproex (ER) 500 MG Tablet PO (08:49)
[2019-06-23] MEDS: Topiramate 200 MG Tablet PO (08:50)
[2019-06-23] MEDS: Calcium Carb/Vitamin D 1 TABLET Tablet PO (08:50)
[2019-06-23] MEDS: clonazePAM 0.5 MG Tablet PO (08:50)
[2019-06-23] MEDS: Aspirin 81 MG TAB.CHEW PO (08:50)
[2019-06-23] MEDS: Metoprolol(XL)Succ 25 MG Tablet PO (08:51)
[2019-06-23] MEDS: Nystatin Powder 15gm Bottle 1 APPLIC TOPICAL (08:51)
--- NOTE | 2019-06-23 11:36 | DCINST_ITS ---
- Discharge Diagnoses Current Active Problems: Current Active and Chronic Problems Ventricular tachycardia (paroxysmal) (Acute) COPD exacerbation (Chronic) Atypical chest pain (Acute) Acute bronchitis (Acute) Non-sustained ventricular tachycardia (Acute) You will use the following diet at home:: No restrictions Your food should be the consistency of: Regular Your liquids should be the consistency of: Regular/Thin Discharge Activity: Return to Normal Activity Weight Bearing Status: Full weight bearing Allergies/Adverse Reactions: Allergies sumatriptan [From Imitrex] Adverse Reaction (Verified 06/22/19 01:13) Vomiting sumatriptan succinate [From Imitrex] Adverse Reaction (Verified 06/22/19 01:13) Vomiting BEE STING Allergy (Uncoded 06/22/19 01:13) Anaphylaxis PAPER TAPE Adverse Reaction (Uncoded 06/22/19 01:13) Rash Medications to take at Discharge Ziprasidone HCl [Geodon] 80 mg PO BID 07/11/13 Pravastatin [Pravachol] 80 mg PO QHS 09/07/15 Phenytoin Sodium Extended [Dilantin] 200 mg PO BID 12/02/17 Albuterol Inhaler [Ventolin Hfa] 2 puff INHALATION Q6H PRN PRN 02/20/18 Hydroxyzine Pamoate [Vistaril] 25 mg PO TID 02/20/18 Clonazepam 0.5 mg PO BID 11/14/18 Divalproex (ER) [Depakote ER] 500 mg PO BID 11/14/18 Magnesium Oxide [Magnesium] 400 mg PO DAILY 11/14/18 Prazosin HCl 5 mg PO QHS 03/13/19 Calcium Carbonate/Vitamin D3 [Oyster Shell 500-Vit D3 200 Tb] 1 ea PO DAILY 06/13/19 Hydrocodone/Acetaminophen [Hydrocodon-Acetaminophen 5-325] 2 ea PO Q8H PRN 06/22/19 Doxycycline 100 mg PO BID #14 cap 06/23/19 Ipratropium/Albuterol Sulfate [Duoneb] 3 ml INHALATION 4X/DAY #120 ampul.neb 06/23/19 Metoprolol(XL)Succ [Toprol Xl (Beta Bull)] 25 mg PO DAILY #30 tab 06/23/19 Nystatin Powder [Mycostatin Powder] 1 applic TOPICAL BID bottle 06/23/19 Prednisone 10 mg PO DAILY #30 tab 06/23/19 Topiramate [Topamax] 200 mg PO BID tab 06/23/19 The following prescriptions were given: Doxycycline 100 mg PO BID #14 cap Transmission Status: Received by [place] [id number] Ipratropium/Albuterol Sulfate [Duoneb] 3 ml INHALATION 4X/DAY #120 ampul.neb Prescription Printed Prednisone 10 mg PO DAILY #30 tab Transmission Status: Received by [place] [id number] Metoprolol(XL)Succ [Toprol Xl (Beta Bull)] 25 mg PO DAILY #30 tab Transmission Status: Received by [place] [id number] Primary Care Physician: Fatoumata Rosen MD [Primary Care Provider] - Please follow up with your Primary Care Physician in: in 2 weeks Test Results: Test results from this visit will be discussed in further detail at your follow- up appointment, if applicable. Please Follow Up With: Conor Carreon MD When: 3 weeks
--- NOTE | 2019-06-23 11:43 | CASEMGMT ---
Pt to be sent home with nebulizer/meds. After provided with verbal list of local DME companies, pt states she would like [facility] at this time. Order/demo sheet with med faxed to [facility] at this time and call to [facility] to notify of referral. Per [facility], they will deliver nebulizer to home with instructions and then med to be mail delivery. Pt updated on all at this time and voices understanding. Pt also to resume [facility] therapy and SN added also. Kaur at [facility] aware that pt being discharged at this time. Pt voices no further questions/concerns/needs at this time. Spike DOMINGUEZ CM
--- NOTE | 2019-06-23 12:23 | NURSING ---
charting reviewed by this RN by student SS
--- NOTE | 2019-06-23 14:13 | CASEMGMT ---
ELÍAS called Mary at [facility] and let her know patient was discharged today. ELÍAS also faxed d/c instructions to [facility]. Pastora JOSHI MSW
--- NOTE | 2019-06-24 09:22 | DS.PCM_ITS ---
Discharge Date and Diagnosis Date of Admission: 06/22/19 Date of Discharge: 06/23/19 - Primary Discharge Diagnosis #1 acute exacerbation of COPD #2 nonsustained V. tach #3 PTSD #4 schizophrenia #5 seizure disorder #6 acute bacterial zzmidvdcux-efxc-gcljsxyd bacterial #7 musculoskeletal chest pain - Secondary Discharge Diagnosis Chronic Problems History of left heart catheterization (Chronic 06/23/19) Normal LV size, wall motion,and systolic function; Normal Left Ventricular systolic function; LVEF: by LV gram 65 %; Elevated Left Ventricular End Diastolic Pressure Non obstructive coronary arteries. COPD exacerbation (Chronic) Osteoarthritis (Chronic) Anxiety and depression (Chronic) Schizophrenia (Chronic) COPD (chronic obstructive pulmonary disease) (Chronic) Tobacco use (Chronic) Morbid obesity (Chronic) Tobacco user (Chronic) Spondylosis of lumbar region without myelopathy or radiculopathy (Chronic) Diabetes (Chronic) Legal blindness (Chronic) HTN (hypertension) (Chronic) MVP (mitral valve prolapse) (Chronic) Hospital Course and Treatment Operations: None Procedures: Cardiac catheterization Summary of Care Provided: The patient is a 63 year old F seen in the emergency room at [facility] with a chief complaint of chest pain and dyspnea. She also complained of a cough. Patient has history of COPD and actively smokes. Patient was given aerosol treatments in the emergency room, it was observed that she had a run of nonsustained ventricular tachycardia that lasted between 5 and 10 seconds. She was asymptomatic with this. Patient was given amiodarone bolus and started on amiodarone drip. Cardiology was called and the case was discussed with cardiology and the patient was also given mag sulfate 2 g. Patient was admitted to PCU and seen in consultation by cardiology who felt that the patient was at risk for coronary artery disease and performed a cardiac catheterization which showed no evidence of occlusive coronary disease. Patient was also treated for exacerbation of COPD with IV corticosteroids and was given antibiotics for acute bronchitis. Patient improved during her hospital stay, there were no untoward events. On 06/23/2019, patient was seen and examined: On examination she appeared in good health and spirits. Vital signs as documented. Skin warm and dry and without overt rashes. Neck without JVD. Lungs clear. Heart exam notable for regular rhythm, normal sounds and absence of murmurs, rubs or gallops. Abdomen unremarkable and without evidence of organomegaly, masses, or abdominal aortic enlargement. Extremities nonedematous. Neuro: Cranial nerves II through XII are grossly intact, no focal motor deficits were noted, sensation to light touch and pinprick is intact. Psych: Patient is alert and oriented x3, she does not appear anxious or depressed On 06/23/2019, patient was seen and examined and felt in stable condition for discharge home - Physical Exam Vitals/I&O's: Vital Signs Temp Pulse Resp BP Pulse Ox 98.1 F 86 16 117/66 97 06/23/19 12:31 06/23/19 12:31 06/23/19 12:31 06/23/19 12:31 06/23/19 12:31 Oxygen Flow Rate (L/min) 2 Oxygen Delivery Method Room Air Weight: 107.3 kg Body Mass Index (BMI) 43.2 Finger Stick Blood Glucose 160 Intake and Output for Last 24 Hours 06/22/19 06/23/19 06/24/19 23:59 23:59 23:59 Intake Total 877.58 / 877.58 1200 / 1200 Output Total 700 / 700 Balance 877.58 / 877.58 500 / 500 Discharge Activity: Return to Normal Activity Weight Bearing Status: Full weight bearing Home Medications: Medications to take at Discharge Ziprasidone HCl [Geodon] 80 mg PO BID 07/11/13 Pravastatin [Pravachol] 80 mg PO QHS 09/07/15 Phenytoin Sodium Extended [Dilantin] 200 mg PO BID 12/02/17 Albuterol Inhaler [Ventolin Hfa] 2 puff INHALATION Q6H PRN PRN 02/20/18 Hydroxyzine Pamoate [Vistaril] 25 mg PO TID 02/20/18 Clonazepam 0.5 mg PO BID 11/14/18 Divalproex (ER) [Depakote ER] 500 mg PO BID 11/14/18 Magnesium Oxide [Magnesium] 400 mg PO DAILY 11/14/18 Prazosin HCl 5 mg PO QHS 03/13/19 Calcium Carbonate/Vitamin D3 [Oyster Shell 500-Vit D3 200 Tb] 1 ea PO DAILY 06/13/19 Hydrocodone/Acetaminophen [Hydrocodon-Acetaminophen 5-325] 2 ea PO Q8H PRN 06/22/19 Doxycycline 100 mg PO BID #14 cap 06/23/19 Ipratropium/Albuterol Sulfate [Duoneb] 3 ml INHALATION 4X/DAY #120 ampul.neb 06/23/19 Metoprolol(XL)Succ [Toprol Xl (Beta Bull)] 25 mg PO DAILY #30 tab 06/23/19 Nystatin Powder [Mycostatin Powder] 1 applic TOPICAL BID bottle 06/23/19 Prednisone 10 mg PO DAILY #30 tab 06/23/19 Topiramate [Topamax] 200 mg PO BID tab 06/23/19 Following Prescrptions Were Given to Patient: Doxycycline 100 mg PO BID #14 cap Transmission Status: Received by [place] [id number] Ipratropium/Albuterol Sulfate [Duoneb] 3 ml INHALATION 4X/DAY #120 ampul.neb Prescription Printed Prednisone 10 mg PO DAILY #30 tab Transmission Status: Received by [place] [id number] Metoprolol(XL)Succ [Toprol Xl (Beta Bull)] 25 mg PO DAILY #30 tab Transmission Status: Received by [place] [id number] Primary Care Physician: Fatoumata Rosen MD [Primary Care Provider] - Please follow up with your Primary Care Physician in: in 2 weeks Please Follow Up With: Fatoumata Rosen MD Please Follow Up With: Conor Carreon MD When: 3 weeks Disposition: Home with Home Health Minutes spent on discharge:: 32 Patient Condition:: Stable Medical Necessity - Tobacco Use Smoking Status: Current every day smoker Tobacco Use: Cigarettes Meaningful Use Info Meaningful Use Diagnoses (Choose all that apply): None applicable Code Visit Inpatient E&M: 53385 Disch Hosp
--- NOTE | 2019-06-24 10:04 | CASEMGMT ---
D/C summ/instructions faxed to [facility] at this time. Spike DOMINGUEZ CM
--- NOTE | 2019-06-24 17:00 | CASEMGMT ---
Case Management D C F/u Call: DC Date: 06/23/2019 DC Diagnosis: #1 acute exacerbation of COPD #2 nonsustained V. tach #3 PTSD #4 schizophrenia #5 seizure disorder #6 acute bacterial rpsqvjoiqc-hoad-npdvrzxd bacterial #7 musculoskeletal chest pain DC Disposition: Home with [facility] SN, Nebulizer-[employer], [employer]: 03/01 Called patient listed cell number, patient answered, introduced self and role. Patient states that she is not doing ,very good as she feels she is having difficulty breathing. Patient able to speak in clear, complete full sentences with no obvious distress noted in conversation. Confirmed received her Nebulizer from [facility] but states that she has not received the Albuterol for it yet and per her instructions that it was going to be mailed to her but has not come in the mail. States thought coming ,from [facility] but they are closed now and needs it. States asked [facility] about Albuterol when they delivered the Nebulizer but they said they did not have a prescription. S/w DC physician Dr Jeffries and states believes that primary CM Nicole Rucker faxed the order and that patient has HHN that she should be using. Called [facility] and closed, per primary RNCIARA Rucker patient albuterol script was faxed to [facility] and that it should be delivered today and is delayed as patient did not answer initially when they tried to contact her. Call back to patient to notify of above and aware [facility] should be delivering albuterol today and to keep an eye out on porch/mail box, aware per MD to use HHN- patient states that she is but they are not helping and needs the nebulizer. Denies further questions, issues, or concerns with [facility], medications or f/u. Confirmed has received all her other [place] medications. Conversation ended. NATALIIA Bennett
== END 2019-06-23 13:40 | disposition home health service (06) | DRG 287 ==
LOC: ED 03:11 → PCU 03:24
PROVIDERS: Internal Medicine Cardiovascular Disease; Admitting Provider Hospitalist; Emergency Provider Emergency Medicine; PCP Internal Medicine; Visit Provider Internal Medicine
DX: I47.2 Ventricular tachycardia (principal); J44.1 Chronic obstructive pulmonary disease with (acute) exacerbation; Z68.41 Body mass index [BMI] 40.0-44.9, adult; J44.0 Chronic obstructive pulmonary disease with (acute) lower respiratory infection; J20.8 Acute bronchitis due to other specified organisms; R07.89 Other chest pain; F20.9 Schizophrenia, unspecified; E66.01 Morbid (severe) obesity due to excess calories; F43.10 Post-traumatic stress disorder, unspecified; H54.8 Legal blindness, as defined in USA; I10 Essential (primary) hypertension; F17.210 Nicotine dependence, cigarettes, uncomplicated; G40.909 Epilepsy, unspecified, not intractable, without status epilepticus; F32.9 Major depressive disorder, single episode, unspecified; I34.1 Nonrheumatic mitral (valve) prolapse; M47.816 Spondylosis without myelopathy or radiculopathy, lumbar region
CPT/HCPCS: 36415; 71046; 80048; 80061; 80299; 82962; 83735; 84484; 85025; 93005; 93458; 94640; 94667; 94668; 97802; 99152; 99251; 99285; 99406; J7040; A4216; C1769; C1894; G0463; J3475; Q9967

== ENCOUNTER 2019-07-08 02:56 | Emergency (ER) | payer MEDICARE, MEDICAID, SELFPAY ==
[2019-07-03 09:39] VITALS: BMI 43.2
[2019-07-08 02:57] VITALS: BP 119/73; PULSE 89; RESP 19; TEMP 36.7; O2SAT 94; BMI 44.1
--- NOTE | 2019-07-08 03:02 | ED.RN ---
RN CALLED FOR EKG, PULLED OLD EKGS FOR
--- NOTE | 2019-07-08 03:04 | ED.VISSUMM ---
- ER Visit Summary Date of Service: 07/08/19 Chief Complaint: Chest pain History of Present Illness: The patient is a 63 F who presents with chest pain. She states it woke her up from sleep less than an hour ago. It was a heaviness in the middle part of her chest. It did not radiate. It made her short of breath. EMS was called and they gave her nitroglycerin and now her symptoms are all gone. She has no stents in her heart. She was admitted on June 22 for nonsustained V. tach. A cardiac catheterization was done and it shows she is got nonobstructive coronary disease. She is on Toprol for the nonsustained V. tach. She states that she has been medication compliant at home. Physical Examination: Vital signs reviewed. HEENT exam unremarkable. Heart is regular rate and rhythm without murmurs. Lungs are clear to auscultation. Abdomen is soft and nontender. Extremities reveal no edema. Peripheral pulses are equal. Skin exam normal. Neurologic exam normal. Test Results: EKG is normal sinus rhythm with rate of 79. No ST changes. Chest x-ray unremarkable. Laboratory studies unremarkable as well. Emergency Department Course and Treatment: The patient remained pain-free throughout her emergency department stay. She just had a coronary catheterization about 2-1/2 to 3 weeks ago which showed nonobstructive disease. I do not feel that this is cardiac in nature. I feel that she can be discharged home to follow-up with her manager of regulatory affairs. Treatment Plan: [] Disposition: Discharge Impression: Chest pain, resolved This note was generated with Glowpoint dictation software. It may contain incorrect words, spelling, and punctuation that were not noted in review of the chart prior to signing ED Disposition - Plan for ED Patient: Disposition: Home or Assisted Living Instructions: CHEST PAIN, Uncertain Cause Referrals: Fatoumata Rosen MD [Primary Care Provider] -
--- NOTE | 2019-07-08 03:05 | EKG12_ITS ---
Test Reason : CP Blood Pressure : / mmHG Vent. Rate : 079 BPM Atrial Rate : 079 BPM P-R Int : 206 ms QRS Dur : 060 ms QT Int : 366 ms P-R-T Axes : 037 -11 009 degrees QTc Int : 419 ms Normal sinus rhythm Inferior infarct (cited on or before 22-JUN-2019) Abnormal ECG Confirmed by ALBINO ROJAS, MOHAN ([id number]), online editor KRISTIE LONG ([id number]) on 07/10/2019 12:56:15 PM Referred By: ISABEL Confirmed By:FIONA POSADA MD
--- NOTE | 2019-07-08 03:05 | RAD_ITS ---
STUDY: X-RAY CHEST REASON FOR EXAM: Female, 63 years old. CP -- PATIENT STATES SHE HAD A HEART ATTACK ON 06/27 TECHNIQUE: Single AP portable view of the chest. COMPARISON: 06/18/2019. FINDINGS: The lungs are clear and expanded. There is no demonstrated pleural abnormality. Normal size heart. Normal mediastinum and ita. Normal visualized pulmonary arteries. There is atherosclerotic calcification of the aortic arch with tortuosity. There is demineralization of the osseous structures. There is degenerative osteoarthritis of the bilateral shoulders. There is no demonstrated abnormality of the visualized soft tissue structures of the upper abdomen. RAD/Chest 1 View (Portable) IMPRESSION: No acute cardiopulmonary disease. Electronically Signed: Shanika Lucas MD at 3:58 EDT , Service support ,
[2019-07-08 03:18] LABS: Absolute Lymphocyte Count 2.45 X10^3/uL (0.83-4.51); Absolute Neutrophil Count 9.1 X10^3/uL (2.0-7.7); Basophil# 0.07 X10^3/uL; Basophil% 0.6 % (0-1); Eosinophil# 0.19 X10^3/uL; Eosinophils% 1.5 % (0-5); Hematocrit 41.6 % (37-47); Hemoglobin 13.5 g/dL (12.0-15.0); Lymphocyte # 2.45 X10^3/ul (4.0); Lymphocyte % 19.3 % (19-41); Mean Corp Hgb Conc 32.5 g/dL (32-36); Mean Corpuscular Hgb 32.1 pg (27.0-32.0); Mean Platelet Vol. 10.8 fl (6.2-12.0); Monocyte# 0.88 X10^3/uL; Monocyte% 6.9 % (0-10); NRBC Flagged by Analyzer 0 % (0-5); Neutrophil # 9.06 X10^3/uL (2.7-7.7); Neutrophil % 71.2 % (47-70); Platelet Count 281 K/mm3 (150-450); RBC Distribution Width CV 13.5 % (11.6-14.6); RBC Distribution Width SD 47.8 fl (35.1-43.9); White Blood Count 12.7 K/mm3 (4.4-11.0)
[2019-07-08 03:28] VITALS: BP 116/70; PULSE 76; RESP 21; O2SAT 95; O2SAT 96
[2019-07-08 03:38] LABS: Anion Gap 4 (5-15); BUN 17 mg/dL (7-18); BUN/Creat Ratio 24.7 RATIO (10-20); Calcium,Total 8.5 mg/dL (8.5-10.1); Chloride 109 mmol/L (98-107); Creatinine, Serum 0.69 mg/dL (0.55-1.02); EST Glomerular Filtration Rate 92 mL/min (>60); Est Glom Filt Rate - Afr Amer 111 mL/min (>60); Glucose 106 mg/dL (74-106); Potassium 3.7 mmol/L (3.5-5.1); Sodium Level 142 mmol/L (136-145)
[2019-07-08 04:00] VITALS: BP 109/68; PULSE 83; RESP 18; O2SAT 96
--- NOTE | 2019-07-08 04:57 | ED.RN ---
PT initially couldn't find a ride home and wanted us to provide her with transportation. Offered to call her family/friends etc. PT did get someone to come pick her up. At 0430 pt bilingual receptionist mcclure wanting a wheelchair to lobby to wait for ride. This RN escorted pt to lobby. PT wants to go smoke. It's 20degrees and she has on a thin nightgown. Request denied. Educated pt on weather and policy. PT wanted this RN to wheel her down the hill as to be off propert, request denied. PT got her a cup of coffee and we will wait until ride is here. PT refuses to go back to room.
--- NOTE | 2019-07-08 05:18 | ED.RN ---
PT told this RN several different lies about who is coming to pick her up. PT called [facility] while we were waiting for her ride in triage. [facility] is still closed. PT returned to room. PT refuses to sit in bed or in room chair. Only wants to sit in wheelchair. PT offered television, pt refused. PT made her own coffee in triage which she continues to drink. This RN will check on pt as required.
--- NOTE | 2019-07-08 05:25 | ED.RN ---
PT caught smoking in her room. Multiple nurses went to room, educated pt on policies. PT still requesting to wait outside. States a ride is coming for her any minute.
--- NOTE | 2019-07-08 06:18 | NURSING ---
pt TRYING TO WHEEL-WALK HERSELF TO LOBBY. PT STATES THAT SERA MANRIQUE CALLED HER BACK AND IT WOULD BE AN HR WAIT AND THEN SHE STATED THAT SERA MANRIQUE HAD TO GET PERMISSION FROM THE HOSPITAL SALES REPRESENTATIVE TO GIVE HER A RIDE. PT ALSO STATES THAT HER AID IS COMING TO PICK HER UP. PT ASKED THIS RN TO WHEEL HER OUTSIDE SO SHE CAN SMOKE. RN REMINDED HER THAT WE ARE NONSMOKING AND SHE HAD A CIGARETTE ONE HR AGO. PT HAS BEEN WATCHING TV ON HER PHONE OUTSIDE HER ROOM SINCE WE BROUGHT HER BACK. WE ARE ABLE TO HEAR HER PHONE FROM THE NURSES STATION. PT WAS NOT HEARD TALKING ON PHONE. REASSURED PATIENT THAT WE WILL WHEEL HER TO LOBBY WHEN AID COMES.
== END 2019-07-08 07:03 | disposition home or self-care (01) ==
PROVIDERS: Emergency Provider Emergency Medicine; PCP Internal Medicine
DX: R07.9 Chest pain, unspecified (principal); J44.9 Chronic obstructive pulmonary disease, unspecified; I10 Essential (primary) hypertension; I47.2 Ventricular tachycardia; G40.909 Epilepsy, unspecified, not intractable, without status epilepticus; Z72.0 Tobacco use; Z79.899 Other long term (current) drug therapy
CPT/HCPCS: 71045; 80048; 84484; 85025; 93005; 99285; A4216

== ENCOUNTER 2019-07-21 06:54 | Day surgery (SDC) | payer MEDICARE, MEDICAID, SELFPAY ==
--- NOTE | 2019-07-20 19:44 | PCM.HP.BLA ---
History and Physical Date of Admission: 07/21/19 Patient presents for upper and lower endoscopy. History of present illness: Afsaneh Tafoya a 63 year old female who is a consultation requested by Dr. Rosen for an opinion regarding altered bowel habits and abdominal pain. The patient is legally blind and has a history of COPD, seizure disorder, HTN and MVP, NIDDM (A1c 5.1 /), schizophrenia, chronic pain and migraine headaches. The patient was seen by Dr. Escobedo for upper endoscopy and colonoscopy on 01/21/14 for reported epigastric pain and clinically significant diarrhea. The procedure report has been reviewed and findings as follows: EGD Impression:- Normal esophagus. - Gastritis. Biopsied. - Normal examined duodenum. Colonoscopy Impression: The bowel prep was fair. - The entire examined colon is normal. Biopsied. - Altered vascular and erythematous mucosa in the rectum. Biopsied. FINAL DIAGNOSIS 1. Gastric antrum, biopsy (A) - Mild chronic inactive gastritis. 2. Colon, random, biopsy (B) - Focal active colitis pattern of injury. - Negative for granulomas. 3. Rectum, biopsy (C) - No significant pathologic change. - No evidence of lymphocytic or collagenous colitis. Stool studies negative. Presenting complaint: The patient presents today reporting recurrence of diarrhea starting 6 months ago. Having upwards of 8 bowel movements a day, only during waking hours. Reports dark red blood in the water as well as the stool intermittently for the past 2 months. Lower abdominal pain that intensifies after eating. No change after a bowel movement. Reports vomiting, after eating about every 2-3 days. Notes it can be blood tinged. Dyspepsia as well as nausea. Using carbonated water to relieve it. She states that she had a heart attack and had a heart cath. [facility] reviewed. Patient was admitted 06/22/19 for chest pain and underwent left heart cath 06/23/19: Normal LV size, wall motion,and systolic function; Normal Left Ventricular systolic function; LVEF: by LV gram 65 %; Elevated Left Ventricular End Diastolic Pressure. Non obstructive coronary arteries. She has follows up with [facility]. PAST MEDICAL HISTORY Asthmatic bronchitis Atypical chest pain Benign neoplasm of colon Blepharospasm Bronchitis Carpal tunnel syndrome of left wrist CHF (congestive heart failure) ([facility]) Constipation COPD (chronic obstructive pulmonary disease) (HCC) Coronary disease Degenerative arthritis of knee Depression Distal radius fracture, right Encephalopathy acute Fibromyalgia Hemorrhoids Hypertension IDDM (insulin dependent diabetes mellitus) (HCC) Intoxication with opioids (HCC) Kidney stones Migraine Mitral valve disorders Narcotic abuse (HCC) Obesity Osteoporosis Renal failure Restrictive lung disease Right shoulder injury Schizo affective schizophrenia (HCC) Sleep disorder Stroke (HCC) Suicidal ideations UTI (urinary tract infection) PAST SURGICAL HISTORY COLONOSCOP W/ OR W/O BRSH SPEC EGD W/O OR W/BRUSH/WASH EYE SURGERY HX LITHOTRIPSY LAP CHOLECYSTECT/CHOLANGIOGRAPHY LAPAROSCOPIC TUBAL LIGATION/RING/CLIP NAIL AVULSION, E/A NAIL teeth pulled TOTAL HIP REPLACEMENT Right 11/18/2018 bilateral knee replacement Left 04/2012/ right 09/2012 FAMILY HISTORY grandparent had colon cancer CURRENT MEDICATIONS calcium carbonate (OYSTER SHELL CALCIUM 500) 500 mg calcium (1,250 mg) tablet clonazePAM (KLONOPIN) 0.5 mg tablet magnesium oxide (MAG-OX) 400 mg (241.3 mg magnesium) tablet fxuklim-rppqydopz-jekmesy D3 (OYSTER SHELL CALCIUM-VITAMIN D) 500 mg(1,250mg) -200 unit per tablet buPROPion XL (WELLBUTRIN XL) 300 mg 24 hr tablet pravastatin (PRAVACHOL) 80 mg tablet potassium chloride SR (MICRO-K) 10 mEq CR capsule albuterol (PROVENTIL) 2.5 mg /3 mL (0.083 %) nebulizer solution EPINEPHrine (EPIPEN) 0.3 mg/0.3 mL auto-injector albuterol HFA (PROAIR HFA) 90 mcg/actuation inhaler nitroglycerin sublingual (NITROQUICK) 0.4 mg SL tablet fentaNYL (DURAGESIC) 12 mcg/hr pt72 gabapentin (NEURONTIN) 300 mg capsule hydrOXYzine pamoate (VISTARIL) 25 mg capsule divalproex ER (DEPAKOTE ER) 250 mg 24 hr tablet methocarbamol (ROBAXIN) 500 mg tablet olopatadine (PATANOL) 0.1 % ophthalmic solution phenytoin ER (DILANTIN) 100 mg ER capsule topiramate (TOPAMAX) 50 mg tablet venlafaxine ER (EFFEXOR XR) 75 mg 24 hr capsule rizatriptan (MAXALT) 10 mg tablet aspirin, enteric coated (ADULT LOW DOSE ASPIRIN) 81 mg EC tablet ziprasidone (GEODON) 80 mg capsule SOCIAL HISTORY: Patient is single. She smokes 1 ppd. She reports her alcohol use as never. REVIEW OF SYSTEMS: GENERAL: Weight loss Last 6 Encounter Wt Readings: Date: Wt: 03/10/2019 95.3 kg (210 lb) 09/30/2018 102.1 kg (225 lb) 08/14/2018 100.7 kg (222 lb) 06/03/2018 100.7 kg (222 lb) 05/27/2018 101.6 kg (224 lb) 03/19/2018 99.3 kg (219 lb) EENT: Legally blind. Denies changes in hearing or vision, no nose bleeds or other nasal problems NECK: Negative for lumps, goiter, pain and significant neck swelling RESPIRATORY: COPD, As noted above. Denies any worsening of breathing. CARDIOVASCULAR:HTN and MVP As noted above. Denies chest pain or palpitations. GI: The patient states that her appetite has been adequate. She does get hungry. There has been some nausea, some vomiting. She denies dysphagia and denies odynophagia. There has partially been indigestion with heartburn. There has not been regurgitation. Bowel habits have been irregular. There has partially been diarrhea. There has not been constipation. The patient admits to rectal bleeding. There has not been melena. Daily abdominal pain that is located in the lower abdomen, mid line. PSYCH: Positive for schizophrenia, as noted above. MUSCULOSKELETAL: Chronic pain as reported above. HEMATOLOGY/LYMPHOLOGY Negative for prolonged bleeding, bruising easily or swollen nodes ENDOCRINE: Positive for diabetes mellitus diet controlled NEURO: Migraine headaches PHYSICAL EXAMINATION: Blood pressure 105/69, pulse 102, weight 95.3 kg (210 lb). General Appearance: Alert, in no acute distress, well-hydrated, well nourished. Skin: Skin color, texture, turgor normal, no suspicious rashes or lesions. Head: Normocephalic, no masses, lesions or abnormalities. Eyes: Anicteric sclera. Oropharynx: Dentures. Lips, mucosa, and tongue normal, oropharynx normal. Neck: Supple, no adenopathy; thyroid symmetric, normal size.. Lungs: lungs clear to auscultation. No wheezing, rhonchi, rales. Heart: RRR without murmur. Abdomen: Abdomen soft, non-tender. Bowel sounds normal. No masses, organomegaly. Extremities: No deformities, edema, skin discoloration. Peripheral Pulses: Normal. Neurologic: Alert and oriented. Sensation grossly intact. Impression: altered bowel habits 2)GI bleeding 3)nausea/vomiting 4)abdominal pain. Plan: CMP. Continue current medications. The patient will be scheduled for an upper endoscopy as well as a colonoscopy. She will require MAC. She has requested Dr Herzog at [facility] due to transportation. Preparation for the procedures, using Miralax/Dulcolax as the laxatives, have been explained in detail. The risks, benefits, anticipated outcomes and possible complications were mentioned, including including failure to complete the endoscopy and perforation. I explained the procedure in understandable terms and the patient was given printed material concerning the planned procedure. The patient had the opportunity to ask questions concerning the planned procedure. The patient freely consents to the planned procedure. The patient is encouraged to call with any questions or concerns, or should there be any change in health status between now and the scheduled procedure. Valorie Landeros RN GIFT SHOP MANAGER.[employer]
[2019-07-21 07:20] VITALS: BP 107/53; PULSE 72; RESP 18; TEMP 36.5; O2SAT 95; BMI 43.0
[2019-07-21] MEDS: Lactated Ringers 1,000 ML 75 ML IV (07:35)
--- NOTE | 2019-07-21 08:00 | IMM_PTH ---
PATIENT: DAVID LOWE LOC: EN U#:[id number] AGE/SX: 63/F ROOM: RE07/21/[address]: Dr. Chichi Herzog MD : 1955 BED: DIS: 07/21/2019 SPEC #: [id number] RECD: 07/22/19 09:00 STATUS: MANDO RERock #: [id number] RAHUL: 07/21/19 08:[address]: Chichi Herzog DEPT: IMMUNOHISTOCHEMISTRY RECD BY: Sandra Pedraza ENTERED: 07/22/19 09:00 SP TYPE: IMMUNO OTHR DR: Dr. Fatoumata Rosen MD Tissues: B - Stomach, NOS Procedures: H Pylori (initial) PHYSICIAN & INSTITUTION [place] [id number] SPECIMEN INFORMATION: Tissue Source: B - Antrum biopsy Clinical Info: Change in bowel habits, GI bleeding, nausea, vomiting, abdomen pain Specimen Number: [id number] CPT code: 89898 METHODOLOGY: Deparaffinized sections of prefer/formalin-fixed tissue or PAP/DQ stained slides are incubated with monoclonal/polyclonal antibodies/oligonucleotide probes. Localization is made via biotin free immunoperoxidase method. Appropriate controls are performed and reacted as expected. Results on target cell population are indicated in the following table: RESULTS: ANTIBODY / CLONE RESULT Block B H Pylori (polyclonal) negative These tests were developed and their performance characteristics determined by [facility]. They may not have been cleared or approved by the U.S. Food and Drug Administration. The FDA has determined that such clearance or approval is not necessary. INTERPRETATION: B. Antrum biopsy: Negative for Helicobacter pylori organisms. AM:lorena 07/23/19
--- NOTE | 2019-07-21 08:00 | EGD_PTH ---
PATIENT: DAVID LOWE LOC: EN U#:[id number] AGE/SX: 63/F ROOM: RE07/21/[address]: Dr. Chichi Herzog MD : 1955 BED: DIS: 07/21/2019 SPEC #: [id number] RECD: 07/21/19 14:47 STATUS: MANDO AYAH #: [id number] RAHUL: 07/21/19 08:[address]: Chichi Herzog DEPT: SURGICAL PATHOLOGY RECD BY: Vin Cavazos ENTERED: 07/22/19 09:10 SP TYPE: EGD BIOPSY OTHR DR: Dr. Fatoumata Rosen MD Tissues: A - Duodenum, NOS B - Gastric mucous membrane C - Gastric mucous membrane D - COLON BIOPSY Procedures: Special Stain Group II Surgery Specimen Level IV Alcian Blue/PAS (control) HEADER OPERATION: Colonoscopy, EGD ([facility]) PRE-OP DIAGNOSIS: Change in bowel habits, GI bleeding, nausea, vomiting, abdomen pain TISSUE SUBMITTED: A - Second portion of duodenum biopsy, B - Antrum biopsy for histo and H.?pylori, C - GE junction biopsy, D - Random colonic biopsy MICROSCOPIC DIAGNOSIS A. Second portion of duodenum, biopsy: No significant pathologic change. No evidence of duodenitis. B. Gastric antrum, biopsy: Mild chronic gastritis. See comment. C. Gastroesophageal junction, biopsy: Mild chronic inflammation and focal changes of reflux. No evidence of intestinal metaplasia. See comment. D. Colon, random biopsy: No pathologic change. AM:lorena 07/23/19 COMMENT B. The results of immunohistochemistry for Helicobacter pylori will be reported separately ([id number]). C. Alcian blue/PAS stain with matched control supports the above diagnosis. MICROSCOPIC DESCRIPTION Slides are reviewed. GROSS DESCRIPTION A - Received in fixative is one container labeled with the patient's name and designated second portion duodenum. The specimen consists of two irregular fragments of light romero soft tissue that in aggregate measure 0.3 x 0.3 x 0.1 cm. The specimen is totally submitted in one cassette. B - Received in fixative is one container labeled with the patient's name and designated antrum biopsy. The specimen consists of two irregular fragments of light romero soft tissue that in aggregate measure 0.3 x 0.2 x 0.1 cm. The specimen is totally submitted in one cassette. C - Received in fixative is one container labeled with the patient's name and designated GE junction biopsy. The specimen consists of two irregular fragments of light romero soft tissue that in aggregate measure 0.5 x 0.5 x 0.1 cm. The specimen is totally submitted in one cassette. D - Received in fixative is one container labeled with the patient's name and designated random colon biopsy. The specimen consists of multiple irregular fragments of light romeor soft tissue that in aggregate measure 2 x 0.6 x 0.1 cm. The specimen is totally submitted in one cassette. / AM:lorena 07/22/19 TC:5 CPT: 94177 x4, 39128
[2019-07-21 08:44] VITALS: BP 107/53; BP 134/69; PULSE 83; RESP 16; TEMP 36.6; O2SAT 96
[2019-07-21 08:50] VITALS: BP 107/53; BP 119/66; PULSE 81; RESP 17; O2SAT 96
--- NOTE | 2019-07-21 08:52 | OP.EGD_ITS ---
Patient Name: Zuly Tafoya Procedure Date: 07/21/2019 7:47 AM Date of : 1955 Age: 63 Procedure: Upper GI endoscopy Indications: Generalized abdominal pain, Nausea with vomiting Providers: Chichi Herzog MD Referring MD: Fatoumata Rosen Medicines: See the Anesthesia note for documentation of the administered medications Patient Profile: Refer to note in patient chart for documentation of history and physical. Complications: No immediate complications. Procedure: Pre-Anesthesia Assessment: - see anesthesia note After obtaining informed consent, the endoscope was passed under direct vision. Throughout the procedure, the patient's blood pressure, pulse, and oxygen saturations were monitored continuously. The gastroscope was introduced through the mouth, and advanced to the second part of duodenum. The upper GI endoscopy was accomplished without difficulty. The patient tolerated the procedure well. Scope In: 8:04:56 AM Scope Out: 8:13:34 AM Total Procedure Duration Time 0 hours 8 minutes 38 seconds Findings: The first portion of the duodenum and second portion of the duodenum were normal. Biopsies were taken with a cold forceps for histology. Estimated blood loss was minimal. Striped mildly erythematous mucosa with stigmata of recent bleeding was found in the gastric antrum. Biopsies were taken with a cold forceps for histology. Verification of patient identification for the specimen was done by the nurse. Estimated blood loss was minimal. A medium-sized hiatal hernia was present. Biopsies were taken with a cold forceps for histology at GE junction, minimal distal esophagitis from BAYLEE was noted. Verification of patient identification for the specimen was done by the nurse. Estimated blood loss was minimal. Impression: - Normal first portion of the duodenum and second portion of the duodenum. Biopsied. - Erythematous mucosa in the antrum. Biopsied. - Medium-sized hiatal hernia. Biopsied. Recommendation: - Discharge patient to home (ambulatory). - Resume previous diet. - Continue present medications. - Await pathology results. - My office will telephone with pathology results in 1-2 weeks Procedure Code(s): --- Professional --- 39913, Esophagogastroduodenoscopy, flexible, transoral; with biopsy, single or multiple Diagnosis Code(s): --- Professional --- K31.89, Other diseases of stomach and duodenum K44.9, Diaphragmatic hernia without obstruction or gangrene R10.84, Generalized abdominal pain R11.2, Nausea with vomiting, unspecified CPT copyright 2017 [employer]. All rights reserved. The codes documented in this report are preliminary and upon asphalt smoother review may be revised to meet current compliance requirements. MD Chichi Ho MD 07/21/2019 8:52:21 AM This report has been signed electronically. Number of Addenda: 0 Note Initiated On: 07/21/2019 7:47 AM
--- NOTE | 2019-07-21 08:52 | OP.CCLET_ITS ---
07/21/2019 Fatoumata Rosen [address] [id number] Re : Upper GI endoscopy procedure for Zuly Tafoya Dear Dr. Rosen This procedure was performed on Sunday, July 21, 2019. My impressions and recommendations are as follows: Impressions : - Normal first portion of the duodenum and second portion of the duodenum. Biopsied. - Erythematous mucosa in the antrum. Biopsied. - Medium-sized hiatal hernia. Biopsied. Recommendations : - Discharge patient to home (ambulatory). - Resume previous diet. - Continue present medications. - Await pathology results. - My office will telephone with pathology results in 1-2 weeks My findings are described in the full procedure note, which is enclosed. If I can be of further assistance, please feel free to contact me at Doctor phone number(s): , Work: . Sincerely, MD Chichi Ho MD 07/21/2019 8:52:21 AM This report has been signed electronically.
[2019-07-21 08:55] VITALS: BP 107/53; BP 119/71; PULSE 72; RESP 18; O2SAT 98
--- NOTE | 2019-07-21 08:57 | OP.CCLET_ITS ---
07/21/2019 Fatoumata Rosen [address] [id number] Re : Colonoscopy procedure for Zuly Tafoya Dear Dr. Rosen This procedure was performed on Sunday, July 21, 2019. My impressions and recommendations are as follows: Impressions : - Preparation of the colon was poor, lesions less than 2-3 cm may be missed, no obvious large obstructing lumenal lesions noted. - Diverticulosis in the sigmoid colon. - Non-bleeding external and internal hemorrhoids. - Biopsies were taken with a cold forceps from the entire colon for evaluation of microscopic colitis. Recommendations : - My office will telephone with pathology results in 1-2 weeks - Repeat colonoscopy 2023 based upon colonoscopy in 2013. - Continue present medications. My findings are described in the full procedure note, which is enclosed. If I can be of further assistance, please feel free to contact me at Doctor phone number(s): , Work: . Sincerely, MD Chichi Ho MD 07/21/2019 8:57:06 AM This report has been signed electronically.
--- NOTE | 2019-07-21 08:57 | OP.COLON_ITS ---
Patient Name: Zuly Tafoya Procedure Date: 07/21/2019 8:16 AM Date of : 1955 Age: 63 Procedure: Colonoscopy Indications: Generalized abdominal pain, Rectal bleeding Providers: Chichi Herzog MD Referring MD: Fatoumata Rosen Medicines: See the Anesthesia note for documentation of the administered medications Patient Profile: Refer to note in patient chart for documentation of history and physical. Last Colonoscopy: 2013. Complications: No immediate complications. Procedure: Pre-Anesthesia Assessment: - see anesthesia note After I obtained informed consent, the scope was passed under direct vision. Throughout the procedure, the patient's blood pressure, pulse, and oxygen saturations were monitored continuously. The pediatric colonoscope was introduced through the anus and advanced to the cecum, identified by the appendiceal orifice, ileocecal valve and palpation. The colonoscopy was performed without difficulty. The patient tolerated the procedure well. The quality of the bowel preparation was poor. Scope In: 8:16:51 AM Scope Withdrawal Time 0 hours 10 minutes 11 seconds Scope Out: 8:38:50 AM Total Procedure Duration Time 0 hours 21 minutes 59 seconds Findings: The perianal and digital rectal examinations were normal. Multiple small and large-mouthed diverticula were found in the sigmoid colon. Biopsies for histology were taken with a cold forceps from the entire colon for evaluation of microscopic colitis. Estimated blood loss was minimal. Poor colon cleansing preparation - lesions less than 2-3 cm may be missed, no obvious large obstructing lumenal lesions noted Non-bleeding external and internal hemorrhoids were found. Impression: - Preparation of the colon was poor, lesions less than 2-3 cm may be missed, no obvious large obstructing lumenal lesions noted. - Diverticulosis in the sigmoid colon. - Non-bleeding external and internal hemorrhoids. - Biopsies were taken with a cold forceps from the entire colon for evaluation of microscopic colitis. Recommendation: - My office will telephone with pathology results in 1-2 weeks - Repeat colonoscopy 2023 based upon colonoscopy in 2013. - Continue present medications. Procedure Code(s): --- Professional --- 14744, Colonoscopy, flexible; with biopsy, single or multiple Diagnosis Code(s): --- Professional --- K64.8, Other hemorrhoids R10.84, Generalized abdominal pain K62.5, Hemorrhage of anus and rectum K57.30, Diverticulosis of large intestine without perforation or abscess without bleeding CPT copyright 2017 [employer]. All rights reserved. The codes documented in this report are preliminary and upon vp software support review may be revised to meet current compliance requirements. MD Chichi Ho MD 07/21/2019 8:57:06 AM This report has been signed electronically. Number of Addenda: 0 Note Initiated On: 07/21/2019 8:16 AM
[2019-07-21 09:01] VITALS: BP 107/53; BP 120/67; PULSE 78; RESP 17; TEMP 36.9; O2SAT 98
[2019-07-21 09:20] VITALS: BP 107/53
== END 2019-07-21 09:38 | disposition home or self-care (01) ==
LOC: EN 06:56 → AC 06:57
PROVIDERS: PCP Internal Medicine; Referring Provider Internal Medicine; Visit Provider Surgery
PROC: 0DJD8ZZ Inspection of Lower Intestinal Tract, Via Natural or Artificial Opening Endoscopic (ICD-10-PCS; CPT 45378; principal; 2019-07-21 07:55)
DX: K29.50 Unspecified chronic gastritis without bleeding (principal); H54.8 Legal blindness, as defined in USA; I11.0 Hypertensive heart disease with heart failure; J44.9 Chronic obstructive pulmonary disease, unspecified; G40.909 Epilepsy, unspecified, not intractable, without status epilepticus; G43.909 Migraine, unspecified, not intractable, without status migrainosus; E11.9 Type 2 diabetes mellitus without complications; F20.9 Schizophrenia, unspecified; G89.29 Other chronic pain; Z79.899 Other long term (current) drug therapy; K44.9 Diaphragmatic hernia without obstruction or gangrene; K57.30 Diverticulosis of large intestine without perforation or abscess without bleeding; K64.8 Other hemorrhoids; M79.7 Fibromyalgia; F17.200 Nicotine dependence, unspecified, uncomplicated; R10.84 Generalized abdominal pain
CPT/HCPCS: 43239; 45380; 88305; 88313; 88342; J7050; J7120

== ENCOUNTER → 2019-08-19 09:21 | Outpatient (CLI) | payer MEDICARE, MEDICAID, SELFPAY ==
[2019-08-19 09:07] VITALS: BMI 43.0
--- NOTE | 2019-08-19 09:23 | RAD_ITS ---
STUDY: X-RAY - LEFT SHOULDER REASON FOR EXAM: Female, 63 years old. FALL A WEEK AGO, LEFT SHOULDER PAIN TECHNIQUE: 4 view(s) of the shoulder. COMPARISON: None. FINDINGS: Normal glenohumeral articulation. There is mild degenerative arthrosis of the acromioclavicular joint without inferior osseous spur formation. Normal acromion. Normal humeral head and visualized proximal humerus. The soft tissue structures are unremarkable. Normal visualized pulmonary apex. RAD/Shoulder min 2 Views IMPRESSION: Mild degenerative changes of the acromial clavicular joint. Electronically Signed: Raoul Cobian, at 13:22 EDT , Service support ,
== END ==
PROVIDERS: PCP Internal Medicine; Referring Provider Orthopaedic Surgery; Visit Provider Orthopaedic Surgery
DX: M25.512 Pain in left shoulder (principal)
CPT/HCPCS: 73030

== ENCOUNTER → 2019-08-24 10:23 | Outpatient (CLI) | payer MEDICARE, MEDICAID, SELFPAY ==
[2019-08-19 09:07] VITALS: BMI 43.0
--- NOTE | 2019-08-24 10:34 | MRI_ITS ---
STUDY: MRI LEFT SHOULDER REASON FOR EXAM: Female, 63 years old. left shoulder pain -- fall 2 months ago, prev surgery 04/2019 then fell , re injuring TECHNIQUE: Standardized fat and water weighted pulse sequences were obtained in all 3 orthogonal planes. COMPARISON: MRI dated April 17, 2019. FINDINGS: Evidence of prior rotator cuff repair. Partial thickness delaminating supraspinatus interstitial tear (coronal image 10 series 6 and sagittal image 9 series 7). Moderate supraspinatus tendinosis. Supraspinatus tendon marked thinning/atrophy. Moderate subscapularis tendinosis without tear. Mild infraspinatus tendinosis. Normal teres minor tendon. Moderate supraspinatus muscle atrophy (sagittal image 1 series 7). Remainder of the rotator cuff muscles unremarkable. Mild intracapsular long biceps tendinosis. Mild extracapsular biceps tendinosis (axial image 14 series 3). Biceps labral anchor appears intact. Labral degeneration without discrete tear. Capsular ligaments intact. Normal rotator cuff interval. Mild/moderate glenohumeral joint arthrosis. Moderate acromiocoracoid joint arthrosis. Mild narrowing of the acromiohumeral interval. No acute fracture. No dislocation. No acute bone destruction. Small volume glenohumeral joint effusion. Mild subacromial subdeltoid bursitis. Intact coracohumeral and coracoacromial ligaments. Normal quadrilateral space. Normal axillary space. Normal deltoid muscle. Normal trapezius muscle. MRI/Upper Ext Joint Only(Routine) IMPRESSION: Prior rotator cuff repair with partial-thickness delaminating supraspinatus tear and underlying tendon thinning/atrophy Moderate rotator cuff tendinosis with supraspinatus muscle atrophy Mild intracapsular long biceps tendinosis Labral degeneration (SLAP type I) Mild/moderate glenohumeral and moderate AC joint arthrosis Mild anterior interval narrowing/impingement Small glenohumeral effusion and mild subacromial subdeltoid bursitis Electronically Signed: Jorje Starks DO at 13:10 EDT Tel , Service support ,
== END ==
PROVIDERS: PCP Internal Medicine; Referring Provider Orthopaedic Surgery; Visit Provider Orthopaedic Surgery
DX: S46.002A Unspecified injury of muscle(s) and tendon(s) of the rotator cuff of left shoulder, initial encounter (principal)
CPT/HCPCS: 73221

== ENCOUNTER → 2019-09-22 08:23 | Outpatient (CLI) | payer MEDICARE, MEDICAID, SELFPAY ==
[2019-08-26 11:43] VITALS: BMI 43.0
[2019-09-22 09:17] LABS: Absolute Lymphocyte Count 2.49 X10^3/uL (0.83-4.51); Absolute Neutrophil Count 3.6 X10^3/uL (2.0-7.7); Basophil# 0.08 X10^3/uL; Basophil% 1.1 % (0-1); Eosinophil# 0.38 X10^3/uL; Eosinophils% 5.1 % (0-5); Hematocrit 39.8 % (37-47); Hemoglobin 12.8 g/dL (12.0-15.0); Lymphocyte # 2.49 X10^3/ul (4.0); Lymphocyte % 33.7 % (19-41); Mean Corp Hgb Conc 32.2 g/dL (32-36); Mean Corpuscular Hgb 31.6 pg (27.0-32.0); Mean Corpuscular Volume 98.3 fL (81-99); Mean Platelet Vol. 11.1 fl (6.2-12.0); Monocyte# 0.82 X10^3/uL; Monocyte% 11.1 % (0-10); NRBC Flagged by Analyzer 0 % (0-5); Neutrophil % 48.7 % (47-70); Platelet Count 258 K/mm3 (150-450); RBC Distribution Width SD 43.4 fl (35.1-43.9); Red Blood Count 4.05 M/mm3 (4.2-5.4); White Blood Count 7.4 K/mm3 (4.4-11.0)
[2019-09-22 09:40] LABS: ALB/GLOB Ratio 0.8 RATIO (0.9-2.4); AST(SGOT) 14 U/L (15-37); Alanine Aminotransfer ALT/SGPT 18 U/L (13-56); Albumin, Serum 3.1 g/dL (3.2-5.0); Alkaline Phosphatase 80 U/L (45-117); Anion Gap 7 (5-15); BUN 15 mg/dL (7-18); BUN/Creat Ratio 20.7 RATIO (10-20); Calcium,Total 8.5 mg/dL (8.5-10.1); Chloride 105 mmol/L (98-107); Creatinine, Serum 0.73 mg/dL (0.55-1.02); EST Glomerular Filtration Rate 86 mL/min (>60); Est Glom Filt Rate - Afr Amer 104 mL/min (>60); Globulin 3.7 g/dL (2.2-4.2); Glucose 114 mg/dL (74-106); Potassium 3.6 mmol/L (3.5-5.1); Protein, Total 6.8 g/dL (6.4-8.2); Sodium Level 141 mmol/L (136-145)
[2019-09-22 09:44] LABS: Valproic Acid (Depakene) Level 30 ug/mL (50-100)
[2019-09-23 16:50] LABS: Topiramate 9.7 ug/mL (2.0-25.0)
== END ==
PROVIDERS: PCP Nurse Practitioner Primary Care; Referring Provider Psychiatry & Neurology Neurology; Visit Provider Psychiatry & Neurology Neurology
DX: F44.5 Conversion disorder with seizures or convulsions (principal); G43.119 Migraine with aura, intractable, without status migrainosus
CPT/HCPCS: 36415; 80053; 80164; 80201; 85025

== ENCOUNTER → 2019-11-04 13:49 | Outpatient (CLI) | payer MEDICARE, MEDICAID, SELFPAY ==
[2019-08-26 11:43] VITALS: BMI 43.0
[2019-11-12 04:18] LABS: HPV APTIMA, High Risk Negative (Negative)
== END ==
PROVIDERS: PCP Nurse Practitioner Primary Care; Visit Provider Obstetrics & Gynecology
DX: Z12.4 Encounter for screening for malignant neoplasm of cervix (principal)
CPT/HCPCS: 87624; 88175; G0145

== ENCOUNTER 2019-11-15 19:41 | Emergency (ER) | payer MEDICARE, MEDICAID, SELFPAY ==
[2019-08-26 11:43] VITALS: BMI 43.0
[2019-11-15 19:44] VITALS: BP 117/77; PULSE 77; RESP 18; TEMP 36.8; O2SAT 96; BMI 52.0
--- NOTE | 2019-11-15 20:05 | ED.VISSUMM ---
- ER Visit Summary Date of Service: 11/15/19 Chief Complaint: [Swelling to right wrist] History of Present Illness: The patient is a 64 F [presents to the emergency department with pain and swelling to the right wrist ever since her surgery on it 2 weeks ago. Patient was seen by a surgeon at the [facility] by the name of Dr. Moyer. Patient apparently had fractured her wrist which required surgery. Patient is right-hand dominant. She denies any new injuries. Patient states that she ran out of her Percocet 6 days ago. She was seen by the surgeons nurse a week ago and was told to elevate the extremity to help with the swelling. Patient's next follow-up appointment is in 4 days. Patient has history of diabetes, hypertension, COPD, anxiety, schizophrenia, and seizure disorder.] Physical Examination: [HEENT-PERRLA, EOMI. Cranial nerves II through XII grossly intact. TMs clear. Mucous membranes moist. No adenopathy. Cardiovascular-regular rate and rhythm without murmur or ectopy Lungs-clear to auscultation, chest wall stable without crepitus or subcu emphysema Abdomen-normoactive bowel sounds, soft, nontender, no rebound or rigidity, no peritoneal signs. Extremities-intact ?4, normal range of motion, normal pulses. Right wrist-patient does have a surgical wound noted to the volar aspect of the wrist that appears to be healing well. There is no erythema or cellulitis. There is no drainage from the wound noted. She has limited range of motion flexion extension of the wrist secondary to pain. There is some edema noted that does not seem to be excessive considering her surgery. Patient has normal pulses and normal cap refill.] Test Results: [None indicated] Emergency Department Course and Treatment: [She was given 1 [place] p.o.] Treatment Plan: [Patient case was discussed with Dr. Atkins who was covering for Dr. Moyer. I do not feel patient needs any further work-up at this time I do not see any evidence of wound infection. The wrist and arm does not look suspicious for DVT. She is neurovascularly intact. She will be given a prescription for [place] and she is to keep her appointment in 4 days with her surgeon.] Disposition: [Discharged home in stable condition] Impression: [Postop wound check/pain and swelling] This note was generated with [employer] dictation software. It may contain incorrect words, spelling, and punctuation that were not noted in review of the chart prior to signing ED Disposition - Plan for ED Patient: Referrals: Mark Hines, PIPE ORGAN TECHNICIAN-C [Primary Care Provider] -
[2019-11-15] MEDS: HYDROcodone Bitartrate/Apap 5/325 Tablet PO (20:09)
--- NOTE | 2019-11-15 20:26 | DCINST.ED_ITS ---
ED Disposition - Plan for ED Patient: Instructions: ED Wound Check Post Op Pain Prescriptions: Hydrocodone Bitart/Apap 5-325 [[place] 5MG-325MG] 1 tab PO Q4H PRN PRN 2 Days #20 tab PRN Reason: Pain Prescription Printed Referrals: Mark Hines NP-C [Primary Care Provider] - Additional Instructions: See your surgeon in 4 days
[2019-11-15 20:34] VITALS: BP 107/73; PULSE 72; RESP 18; O2SAT 96
== END 2019-11-15 20:36 | disposition home or self-care (01) ==
LOC: ED 20:09
PROVIDERS: Emergency Provider Emergency Medicine; PCP Nurse Practitioner Primary Care
DX: Z48.00 Encounter for change or removal of nonsurgical wound dressing (principal); R60.9 Edema, unspecified; J44.9 Chronic obstructive pulmonary disease, unspecified; I10 Essential (primary) hypertension
CPT/HCPCS: 99284

== ENCOUNTER 2019-11-22 01:14 | Emergency (ER) | payer MEDICARE, MEDICAID, SELFPAY ==
[2019-11-22 01:16] VITALS: BP 97/52; PULSE 82; RESP 19; TEMP 37.1; O2SAT 98; BMI 46.7
--- NOTE | 2019-11-22 01:20 | EKG12_ITS ---
Test Reason : CP Blood Pressure : / mmHG Vent. Rate : 075 BPM Atrial Rate : 075 BPM P-R Int : 208 ms QRS Dur : 066 ms QT Int : 370 ms P-R-T Axes : 047 -08 020 degrees QTc Int : 413 ms Normal sinus rhythm Inferior infarct , age undetemined Abnormal ECG Confirmed by JANI ROJAS, NADIA ([id number]), newspaper managing editor PHUONG VELEZ ([id number]) on 11/23/2019 1:16:21 PM Referred By: REEMA Confirmed By:NADIA GUNTER MD
[2019-11-22 01:23] VITALS: O2SAT 100
[2019-11-22 01:32] LABS: Absolute Lymphocyte Count 3.56 X10^3/uL (0.83-4.51); Absolute Neutrophil Count 4.7 X10^3/uL (2.0-7.7); Basophil# 0.07 X10^3/uL; Basophil% 0.7 % (0-1); Eosinophil# 0.33 X10^3/uL; Eosinophils% 3.5 % (0-5); Hematocrit 42.4 % (37-47); Hemoglobin 13.7 g/dL (12.0-15.0); Lymphocyte # 3.56 X10^3/ul (4.0); Lymphocyte % 37.4 % (19-41); Mean Corp Hgb Conc 32.3 g/dL (32-36); Mean Corpuscular Hgb 31.2 pg (27.0-32.0); Mean Corpuscular Volume 96.6 fL (81-99); Mean Platelet Vol. 10.6 fl (6.2-12.0); Monocyte# 0.85 X10^3/uL; Monocyte% 8.9 % (0-10); NRBC Flagged by Analyzer 0 % (0-5); Neutrophil % 49.3 % (47-70); Platelet Count 329 K/mm3 (150-450); RBC Distribution Width CV 13.3 % (11.6-14.6); RBC Distribution Width SD 47.6 fl (35.1-43.9); Red Blood Count 4.39 M/mm3 (4.2-5.4); White Blood Count 9.5 K/mm3 (4.4-11.0)
--- NOTE | 2019-11-22 01:35 | RAD_ITS ---
STUDY: X-RAY CHEST REASON FOR EXAM: Female, 64 years old. Chest pain for few days. TECHNIQUE: Single AP portable view of the chest. COMPARISON: 07-08-2019. FINDINGS: The lungs are clear and expanded. There is no demonstrated pleural abnormality. Normal size heart. Normal mediastinum and ita. Normal visualized pulmonary arteries. Normal visualized aortic arch and descending thoracic aorta. Normal visualized thoracic spine. Normal visualized ribs, clavicles, and shoulders. There is no demonstrated abnormality of the visualized soft tissue structures of the upper abdomen. RAD/Chest 1 View (Portable) IMPRESSION: No active pulmonary disease. Electronically Signed: Srinivasa Bob MD at 1:48 EDT Tel , Service support ,
[2019-11-22 01:49] LABS: Anion Gap 3 (5-15); BUN 10 mg/dL (7-18); BUN/Creat Ratio 13.8 RATIO (10-20); Calcium,Total 8.9 mg/dL (8.5-10.1); Chloride 111 mmol/L (98-107); Creatinine, Serum 0.73 mg/dL (0.55-1.02); EST Glomerular Filtration Rate 86 mL/min (>60); Est Glom Filt Rate - Afr Amer 104 mL/min (>60); Estimated Creatinine Clearance 62.39 ml/min; Glucose 118 mg/dL (74-106); Potassium 3.5 mmol/L (3.5-5.1); Sodium Level 142 mmol/L (136-145)
[2019-11-22] MEDS: Aspirin 81 MG TAB.CHEW 324 MG PO (02:01)
[2019-11-22] MEDS: 0.9% Normal Saline 1,000 ML 150 ML IV (02:01)
[2019-11-22] MEDS: HYDROcodone Bitartrate/Apap 5/325 Tablet PO (02:02)
--- NOTE | 2019-11-22 02:06 | ED.DCSUM_ITS ---
- ER Visit Summary Date of Service: 11/22/19 Chief Complaint: Chest pain and right wrist pain History of Present Illness: The patient is a [address] Hines and Dr. Carreon. She reports that she has substernal chest pain began an hour and a half ago while she was asleep. As a sharp pain it was 10 on 10 at worst and is 1 out of 10 currently. Is worsened by movement of her torso. Is unchanged with exertion or deep breaths. She reports that it was relieved by nitroglycerin. She had nausea, but no vomiting. No diaphoresis or shortness of breath. Patient reports that she had a heart catheterization in May that did not require stents. She states that she was told that her heart problems are brought on by pain or stress. Patient reports that she had a repair of a right wrist fracture by Dr. Moyer on November 01. She reports that she ran out of [employer] 2 days ago. She has pain there that is 10 out of 10 in severity. Is unrelieved by ibuprofen. Denies any paresthesias in her hand. She reports that she has a headache after taking nitro. Physical Examination: Vitals: Stable. Afebrile. General: Well-nourished and well-developed. Head: Normocephalic atraumatic. Neck: Supple, no lymphadenopathy. No JVD. Nontender. Cardiovascular: Regular rate and rhythm. 2 out of 6 systolic murmur. Respiratory: No respiratory distress. Clear to auscultation bilaterally. Abdominal: Soft, nontender, nondistended, normal bowel sounds. No guarding, rebound, or peritoneal signs. Back: Nontender. Extremities: Incision on the volar side of her right wrist is clean, dry, intact. There is no erythema or warmth. It is moderately tender to palpation. She is a 2+ radial pulse, no edema. Skin: Normal color, no rash. Neurologic: Alert and oriented ?3. Cranial nerves II through XII are intact. Normal strength and sensation. Psych: Normal affect. Test Results: EKG is sinus at [address] changes. Is unchanged from June of this year. Troponin is negative. Chem-7 shows a chloride of 111 and glucose 118. CBC is normal. Chest x-ray shows no acute disease. Emergency Department Course and Treatment: Patient was given aspirin p.o. She was given [place] p.o. An OARRS report was obtained which shows that she got a prescription for [address] Moyer on November 01. She reports that she had a visit with him November 18 and he did not give her more [place]. She also got a prescription for 20 [place] on November 14. She has had a prescription for 18 different opiate-based medications in the past year. Treatment Plan: I reviewed the patient's heart catheterization June 22. She had a ejection fraction of 65%. She had a 30% mid LAD and RCA stenosis. I do not think that the pain that she has tonight is ischemic in origin. I also do not think that this is due to a DVT/PE. Patient is instructed on symptomatic care. Use Tylenol and/or ibuprofen for pain. I do not think another prescription for opiate-based medications is warranted or in her best interest. Follow-up with her primary care physician in 2 days for another exam. Follow-up Dr. Moyer as previously scheduled. Return to the emergency department for any worsening symptoms. Disposition: To home in improved and stable condition. Impression: 1. Atypical chest pain. 2. 20-day status post right wrist surgery. 3. SAMMI score of 2. This note was generated with [employer] dictation software. It may contain incorrect words, spelling, and punctuation that were not noted in review of the chart prior to signing ED Disposition - Plan for ED Patient: Instructions: ED Chest Pain Atypical Unkn Cause Referrals: Mark Hines NP-C [Primary Care Provider] - 2 Days
[2019-11-22 02:45] VITALS: BP 103/66; PULSE 67; RESP 16; O2SAT 98
== END 2019-11-22 03:00 | disposition home or self-care (01) ==
LOC: ED 01:54
PROVIDERS: Emergency Provider Emergency Medicine; PCP Nurse Practitioner Primary Care
DX: R07.9 Chest pain, unspecified (principal); M25.531 Pain in right wrist
CPT/HCPCS: 71045; 80048; 84484; 85025; 93005; 99285; J7030

== ENCOUNTER 2019-12-05 18:13 | Emergency (ER) | payer MEDICARE, MEDICAID, SELFPAY ==
[2019-12-05 18:14] VITALS: BP 135/81; PULSE 83; RESP 18; TEMP 37.4; O2SAT 95; BMI 45.7
--- NOTE | 2019-12-05 18:30 | RAD_ITS ---
STUDY: X-RAY - RIGHT FEMUR REASON FOR STUDY: Female, 64 years old. FALL FROM WHEEL CHAIR, PAIN RT KNEE AND HIP AREA TECHNIQUE: 4 view(s) of the femur. COMPARISON: None. FINDINGS: There is a right hip prosthesis in place. There is a total knee replacement. Normal visualized soft tissue structure. Effusion is noted at the knee. RAD/Femur Min 2 Views IMPRESSION: Suprapatellar effusion of the knee. Electronically Signed: Clinton Allen DO at 19:11 EDT Tel [phone], Service support ,
[2019-12-05] MEDS: Ketorolac 30 MG/ML Syringe IM (18:56)
--- NOTE | 2019-12-05 19:30 | ED.VISSUMM ---
- ER Visit Summary Date of Service: 12/05/19 Chief Complaint: Fall History of Present Illness: The patient is a [address] Gonzalez. Patient reports that she was trying to transfer from her chair to a wheelchair when she lost her balance and fell. Landed on her right knee. She reports she has pain is 10 of 10 severity. Denies any blow to the head or loss of consciousness. No neck, back, shoulder, wrist, or hip pain. She is not on anticoagulants. Physical Examination: Vitals: Stable. Afebrile. Neck: No vertebral tenderness. Full ROM without difficulty. Cleared by NEXUS criteria. Back: No vertebral tenderness. General: A&O x 3. NAD. Cardiovascular exam: Regular rate and rhythm, no murmur, rub or gallop. Respiratory exam: Chest nontender. No crepitus. Clear to auscultation bilaterally. No wheezes or stridor. Abdominal exam: Soft, nontender, nondistended, normal bowel sounds. No pain in RUQ or LUQ specifically. No peritoneal signs. Extremity: Moderate tenderness palpation is diffuse over her right knee. She has good range of motion with minimal difficulty. She is neuro vas intact distal to this n. Test Results: Clinical Impression(s) from Imaging Studies Femur X-Ray 12/05/19 18:30 IMPRESSION: Suprapatellar effusion of the knee. Electronically Signed: Clinton Allen DO at 19:11 EDT Tel [phone], Service support , Emergency Department Course and Treatment: An OARRS report was obtained which shows had 12 prescriptions for opiates in the past year. She is given a dose of Toradol IM and Zofran p.o. She is resting comfortably. Treatment Plan: Patient will be discharged with symptomatic management. Ice the area. Use Tylenol and/or ibuprofen for pain. Follow-up with her primary care physician 1 week if not improving. Return to the emergency department for any worsening symptoms. Disposition: To home in improved and stable condition. Impression: 1. Fall. 2. Right knee pain, acute. This note was generated with [employer] software. It may contain incorrect words, spelling, and punctuation that were not noted in review of the chart prior to signing ED Disposition - Plan for ED Patient: Disposition: Home or Assisted Living Instructions: ED Knee Pain [facility] Prescriptions: Ondansetron [Zofran Odt] 4 mg PO Q8H PRN PRN #10 tab PRN Reason: Nausea Prescription Printed Referrals: Mark Hines NP-C [Primary Care Provider] - 1 Week if not improving
[2019-12-05] MEDS: Ondansetron ODT 4 MG Tablet PO (19:55)
[2019-12-05 19:56] VITALS: BP 117/62; PULSE 71; RESP 18; O2SAT 94
== END 2019-12-05 20:11 | disposition home or self-care (01) ==
LOC: ED 19:05
PROVIDERS: Emergency Provider Emergency Medicine; PCP Nurse Practitioner Primary Care
DX: M25.561 Pain in right knee (principal); J44.9 Chronic obstructive pulmonary disease, unspecified; I10 Essential (primary) hypertension; W05.0XXA Fall from non-moving wheelchair, initial encounter
CPT/HCPCS: 73552; 96372; 99284

== ENCOUNTER → 2020-03-02 08:15 | Outpatient (CLI) | payer MEDICARE, MEDICAID, SELFPAY ==
--- NOTE | 2020-03-02 08:18 | BI_ITS ---
MAMMOGRAPHY - BILATERAL SCREENING REASON FOR EXAM: Female, 64 years old. Routine annual screening examination. PERTINENT HISTORY: Non-contributory. TECHNIQUE: Digital bilateral breast enedina (3D mammographic acquisition) in the CC and MLO projections. 2-D mediolateral oblique (MLO) and craniocaudad (CC) views of both breasts were obtained. CAD: Full Field Digital Mammography with Computer Added Detection was performed. COMPARISON: Comparison is made with prior study 02/17/2019 and 08/19/2017. FINDINGS: Breast Composition: The breasts are almost entirely fatty. There are no dominant masses or suspicious calcifications. Stable benign-appearing bilateral axillary lymph nodes. No other significant abnormalities are identified. There has been no significant change since the prior study. BI/SCREEN MAMM (CAD) W/ENEDINA BILAT IMPRESSION: Stable bilateral screening mammogram. Yearly follow-up mammogram recommended. (A) ASSESSMENT CATEGORY: BIRADS Category 2: Benign. A letter regarding these results will be sent to the patient by the facility within 30 days. Approximately 10% of breast cancers are not detected by mammography. A normal mammogram should not delay biopsy of a clinically suspicious abnormality. [id number] Electronically Signed: Raoul Cobian, at 12:58 EST , Service support ,
== END ==
PROVIDERS: PCP Nurse Practitioner Primary Care; Referring Provider Obstetrics & Gynecology; Visit Provider Obstetrics & Gynecology
DX: Z12.31 Encounter for screening mammogram for malignant neoplasm of breast (principal)
CPT/HCPCS: 77063; 77067

== ENCOUNTER 2020-03-05 09:17 | Emergency (ER) | payer MEDICARE, MEDICAID, SELFPAY ==
[2020-03-05 09:19] VITALS: BP 145/112; PULSE 100; RESP 18; TEMP 36.6; O2SAT 99; BMI 43.9
--- NOTE | 2020-03-05 09:32 | ED.VIS.DENTA ---
History of Present Illness Informant: Patient Onset: Yesterday Context: Gradual Onset Timing: Continuous Quality: Aching pain Location: Right lower gumline of mouth Current Severity: Severe Maximum Severity: Severe Worsened by: Eating and drinking Relieved by: NSAIDs Associated Symptoms: - - Denies any associated symptoms Narrative: 64-year-old female with a history of depression, migraines, poor dentition presents to the emergency department complaining of right-sided dental pain. Patient states it has been getting worse for the last several days but it was worse this morning when she woke up. She has a history of poor dentition. She did schedule an appointment with her dentist but is not for a few weeks. She has not had any facial swelling or fevers. She has not had difficulty breathing or swallowing or opening and closing her mouth. She also complains that the pain from the dental pain is making her chronic migraines worse. She does take Topamax and Depakote daily which she states are for migraines. She has not had any visual changes weakness paresthesias difficulties with speech or ambulation vomiting photophobia phonophobia neck pain lightheadedness or dizziness. She did take 2 aspirin prior to arrival. Prior similar symptoms: Yes Recent Illness/Hospitalization: No <Gray Carrion - Last Filed: 03/05/20 09:35> <Arnel Burrell - Last Filed: 03/05/20 09:55> Chief Complaint: Dental Past Medical History Prior records reviewed: Yes Past Medical History: - - Depression anxiety migraines Surgical History: cholecystectomy, total hip arthroplasty, total knee arthroplasty - Bilateral, - - Surgery for wrist fracture, surgery for shoulder dislocation Lives: Alone Smoking Status: Current every day smoker Alcohol: None Drugs: None - Family History Paternal Family History: Reports: Diabetes, Heart Disease, - Maternal Family History: Reports: - <Gray Carrion - Last Filed: 03/05/20 09:35> <Arnel Burrell - Last Filed: 03/05/20 09:55> - Allergies and Home Meds Allergies/Adverse Reactions: Allergies sumatriptan [From Imitrex] Adverse Reaction (Verified 03/05/20 09:21) Vomiting sumatriptan succinate [From Imitrex] Adverse Reaction (Verified 03/05/20 09:21) Vomiting BEE STING Allergy (Uncoded 03/05/20 09:21) Anaphylaxis PAPER TAPE Adverse Reaction (Uncoded 03/05/20 09:21) Rash Primary Care Physician: aMrk Hines BOTTOM FINISHER, BOTTOM FINISHER-C [Primary Care Provider] - Review of Systems All systems negative except as indicated General: Denies: Chills, Fever, Sweats Eyes: Denies: Visual changes - bilaterally, Diplopia ENT: Reports: - - Dental pain. Denies: Bilateral ear pain, Rhinorrhea, Sore throat Cardiovascular: Denies: Chest pain, Palpitations Respiratory: Denies: Dyspnea, Cough, Dyspnea on exertion Gastrointestinal: Denies: Abdominal pain, Nausea, Vomiting, Diarrhea, Melena, Hematochezia Genitourinary: Denies: Dysuria, Hematuria, Frequency Musculoskeletal: Denies: Neck pain, Back pain, Extremity Pain Skin: Denies: Rash, Abscess, Abrasions, Wounds Neurological: Reports: Headache. Denies: Weakness, Parasthesia, Numbness <Gray Carrion Last Filed: 03/05/20 09:35> Physical Exam Vital Signs/Narrative: Vital Signs Temp Pulse Resp BP Pulse Ox 03/05/20 09:19 97.9 F 100 18 145/112 H 99 Inital Vital Signs reviewed: Yes General: Well nourished, Well developed Head: Normocephalic, Atraumatic ENT: Moist mucous membranes, No nasal trauma, No rhinorrhea, TM's clear. Negative for: Dry mucous membranes, Nasal congestion, Sinus tenderness, TM erythema left, TM erythema right Mouth/Throat: No focal abscess, Normal posterior oropharynx, No sublingual edema, Normal Stensen's duct, Focal dental decay, Focal gum swelling, Widespread dental decay. Negative for: Apthous ulcer, Dental trauma, Dental abscess, Dental avulsion, Dentral fracture, Filling loss, Gingivitis, Tenderness on tooth percussion, Trismus Neck: Supple, No lymphadenopathy, Nontender, No JVD Cardiovascular: Regular rate, Regular rhythm, No murmurs Respiratory: No distress, CTA bilaterally, Chest nontender Abdomen: Soft, Nontender, Nondistended, Normal bowel sounds Back: Nontender, Normal Inspection Extremities: Nontender, No edema Skin: Normal color, No rash Neurological: Alert, Oriented x3, Cranial nerves II-XII grossly intact, Normal Strength, Normal Sensation Psychological: Normal affect <Gray Carrion Filed: 03/05/20 09:35> Vital Signs/Narrative: Vital Signs Temp Pulse Resp BP Pulse Ox 03/05/20 09:19 97.9 F 100 18 145/112 H 99 <Arnel Burrell - Last Filed: 03/05/20 09:55> Diagnostic/Tx/Re-eval - Medical Decision Making Patient has no focal abscess. She has no sublingual edema or trismus. Normal voice. Normal airway. Tolerating secretions well. She does have widespread dental decay. Therefore placed on penicillin. We mutually agreed upon giving her dose of Toradol intramuscular for her headache. This has worked well for her in the past. She was offered IV migraine cocktail and declines. Will prescribe Naprosyn. Will prescribe penicillin. Will follow-up with her dentist. Return precautions given. All questions answered. She was agreeable with plan of care. <Gray Carrion - Last Filed: 03/05/20 09:35> - Medical Decision Making Seen and evaluated independently and in conjunction with physician laboratory assistant. Agree with notes above unless documented otherwise. Patient in no distress. She has a painful mandibular front right incisor that does not appear acutely diseased, subluxed, or abscessed. There is no submental edema or fullness or trismus. Given injection of Toradol at her request in addition to antibiotics, she knows to follow-up with a dentist. <Arnel Burrell - Last Filed: 03/05/20 09:55> ED Disposition <Gray Carrion - Last Filed: 03/05/20 09:35> <Arnel Burrell - Last Filed: 03/05/20 09:55> - Plan for ED Patient: Disposition: Home or Assisted Living Diagnosis: Odontalgia, Dental caries, Migraine Instructions: ED Tooth Pain Prescriptions: Naproxen [Naprosyn] 500 mg PO BID #10 tab Transmission Status: Received by [facility] #30 Penicillin V Potassium 500 mg PO 4X/DAY #40 tab Transmission Status: Received by [facility] Referrals: Mark Hines NP, BOTTOM FINISHER-C [Primary Care Provider] -
[2020-03-05] MEDS: Penicillin Vk 250 MG Tablet 500 MG PO (09:50)
[2020-03-05] MEDS: Ketorolac 30 MG/ML Syringe IM (09:50)
--- NOTE | 2020-03-05 10:08 | ED.RN ---
Pt arrived with therapy dog.
== END 2020-03-05 10:08 | disposition home or self-care (01) ==
LOC: ED 10:03
PROVIDERS: Emergency Provider Physician Assistant Medical; PCP Nurse Practitioner Primary Care
DX: K02.9 Dental caries, unspecified (principal); G43.909 Migraine, unspecified, not intractable, without status migrainosus; F17.200 Nicotine dependence, unspecified, uncomplicated
CPT/HCPCS: 96372; 99282

== ENCOUNTER 2020-05-21 15:55 | Emergency (ER) | payer MEDICARE, MEDICAID, SELFPAY ==
[2020-05-21 15:56] VITALS: BP 115/89; PULSE 73; RESP 18; TEMP 36.6; O2SAT 93; BMI 37.8
--- NOTE | 2020-05-21 16:07 | ED.RN ---
Addendum entered by Rhina Rodrigues 05/21/20 16:27: ADDED INFORMATION: When pt arrived, the pt's dog was biting its' leash and pulling on wheelchair in other directions than where the pt was wanting to go. Dog was restless and whimpering while pt was being triaged. Pt had to command dog multiple times and pull on its' leash to make it sit. When pt left the hospital, dog again was biting its' leash. Original Note: While pt was being triaged, pt was explained to that her service dog could not be in the facility due to issues in the past. According to management, pt has been made a [place] of this and the hospital hotel night auditor are involved with this situation. Pt refused to have someone come and get the dog so that the pt could be seen. This rn and another rn explained to pt that if there was absolutely no one that could come and get the dog, we could put the dog in the hazmat room while the pt was being seen. Again, the pt refused and was yelling that we (hospital) were refusing to treat her. We explained to the pt that we were not refusing to see and treat her, she could just not have her dog. Pt tried to explain that she had proper paperwork and documentation that her dog was service dog, we again explained the dog was not able to be with her while in the hospital. Pt kept saying she would not leave the dog and that we were denying her treatment. Multiple times pt was given the opportunity to be seen if she would either have someone come get the dog or place it in the hazmat room. Pt refused to do that and she left the hospital via wheelchair.
--- NOTE | 2020-05-21 16:15 | ED.RN ---
PT CAME IN TO TRIAGE WITH DOG. STAFF IS AWARE THAT PT HAS BEEN NOTIFIED DOG IS NOT PERMITTED IN FACILITY DUE TO HISTORY OF AGGRESSION. PT STATES SHE IS NOT AWARE OF RESTRICTION. THIS RN SPOKE TO ED DIRECTOR BY PHONE, INSTRUCTIONS GIVEN TO REMIND PT DOG IS RESTRICTED FROM BEING IN FACILITY DUE TO HX OF BITING PEOPLE. 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 IF PT REFUSES TO HAVE DOG WAIT OUTSIDE AND REQUESTS MEDICAL CARE, OFFER TO HAVE DOG WAIT IN HAZMAT ROOM WHILE PT IS BEING TREATED. THIS RN SPOKE TO PT IN TRIAGE, RELAYED ABOVE INFORMATION WITH SEVERAL WITNESSES INCLUDING HRO WHO RECORDED CONVERSATION ON BODY CAMERA. PT INFORMED SEVERAL TIMES BY THIS RN THAT WE WOULD BE HAPPY TO PROVIDE CARE. PT AGITATED, YELLING AT THIS RN. DOG WHINING, RESTLESS, BITING AT LEASH. O ANIMAL COMPLAINT NUMBER [phone]
== END 2020-05-21 16:19 | disposition left against medical advice (07) ==
PROVIDERS: Emergency Provider Emergency Medicine; PCP Nurse Practitioner Primary Care
DX: Z53.21 Procedure and treatment not carried out due to patient leaving prior to being seen by health care provider (principal)

== ENCOUNTER 2020-05-27 01:54 | Emergency (ER) | payer MEDICARE, MEDICAID, SELFPAY ==
[2020-05-27 01:54] VITALS: BP 117/66; PULSE 12; RESP 89; TEMP 36.6; O2SAT 99; BMI 48.0
[2020-05-27 01:55] VITALS: O2SAT 95
--- NOTE | 2020-05-27 01:55 | EKG12_ITS ---
Test Reason : CP Blood Pressure : / mmHG Vent. Rate : 093 BPM Atrial Rate : 093 BPM P-R Int : 194 ms QRS Dur : 076 ms QT Int : 366 ms P-R-T Axes : 034 -11 009 degrees QTc Int : 455 ms Normal sinus rhythm Inferior infarct , age undetermined Abnormal ECG Confirmed by ALBINO ROJAS, MOHAN ([id number]), senior editor HERMAN DOWNS ([id number]) on 05/30/2020 10:58:16 AM Referred By: RICARDO Confirmed By:FIONA POSADA MD
--- NOTE | 2020-05-27 01:56 | ED.DCSUM_ITS ---
History of Present Illness Chief Complaint: Chest Pain Informant: Patient Onset: Yesterday Context: Gradual Onset Timing: Continuous Current Severity: Moderate Maximum Severity: Moderate Narrative: Patient is a 64-year-old female with medical history significant for hypertension, blindness, schizoaffective disorder, and hyperlipidemia who presents to the emergency department chest pain. Patient states she was in her normal state of health. She states that over 24 hours ago, she began to have pain in the right side of her chest. She states it went to her right arm. She did feel mildly nauseated and short of breath with it. She states she does have a history of prior IA, but never had stents. She did have a catheterization just about a year ago without intervention. She states that she did discuss this with her aluminum molding machine operator who referred her to the emergency department for further evaluation. She denies fevers or chills. She has been compliant with her medications. She states that she has had a lot of sneezing over the past 24 hours but cannot recall any Covid exposure. Prior similar symptoms: No Recent Illness/Hospitalization: No Past Medical History - Allergies and Home Meds Allergies/Adverse Reactions: Allergies sumatriptan [From Imitrex] Adverse Reaction (Verified 05/21/20 15:56) Vomiting sumatriptan succinate [From Imitrex] Adverse Reaction (Verified 05/21/20 15:56) Vomiting BEE STING Allergy (Uncoded 05/21/20 15:56) Anaphylaxis PAPER TAPE Adverse Reaction (Uncoded 05/21/20 15:56) Rash Primary Care Physician: Mark Hines SUPERVISOR BOARDING, SUPERVISOR BOARDING-C [Primary Care Provider] - Prior records reviewed: Yes Past Medical History: - - Hypertension, hyperlipidemia, schizoaffective disorder Surgical History: cholecystectomy, total hip arthroplasty, total knee arthroplasty - Bilateral, - - Surgery for wrist fracture, surgery for shoulder dislocation Smoking Status: Unknown if ever smoked - Family History Paternal Family History: Reports: Diabetes, Heart Disease, - Maternal Family History: Reports: - Review of Systems General: Denies: Chills, Fever, Sweats Eyes: Denies: Visual changes - bilaterally, Diplopia ENT: Denies: Rhinorrhea, Sore throat Cardiovascular: Reports: Chest pain. Denies: Palpitations Respiratory: Reports: Dyspnea. Denies: Cough, Dyspnea on exertion Gastrointestinal: Denies: Abdominal pain, Nausea, Vomiting, Diarrhea, Melena, Hematochezia Genitourinary: Denies: Dysuria, Hematuria, Frequency Musculoskeletal: Denies: Back pain, Extremity Pain Skin: Denies: Rash, Wounds Neurological: Denies: Headache, Weakness, Numbness Physical Exam Inital Vital Signs reviewed: Yes General: Well nourished, Well developed, No Acute Distress Head: Normocephalic, Atraumatic Eyes: Perrl, EOMI ENT: Moist mucous membranes, No rhinorrhea Neck: Supple, Nontender Cardiovascular: Regular rate, Regular rhythm, No murmurs Respiratory: No distress, CTA bilaterally, Chest nontender Abdomen: Soft, Nontender, Nondistended, Normal bowel sounds Back: Nontender, Normal Inspection Extremities: Nontender, No edema Skin: Normal color, No rash Neurological: Alert, Oriented x3, Cranial nerves II-XII grossly intact, Normal Strength, Normal Sensation Psychological: Normal affect, Normal Mood Diagnostic/Tx/Re-eval Chest X-Ray - ED: 1 View, Read by ED Physician, Normal, Heart, Lungs, Mediastinum, Bony Structures Abnormal Lab Results 05/27/20 05/27/20 05/27/20 02:07 02:07 02:07 WBC 8.7 RBC 4.45 Hgb 14.1 Hct 42.6 MCV 95.7 MCH 31.7 MCHC 33.1 RDW Std Deviation 43.0 RDW Coeff of [place] 12.1 Plt Count 266 MPV 10.3 Immature Gran % (Auto) 0.100 Neut % (Auto) 43.2 L Lymph % (Auto) 40.2 [place] % (Auto) 10.5 H Eos % (Auto) 4.8 Baso % (Auto) 1.2 H Absolute Neuts (auto) 3.8 Absolute Lymphs (auto) 3.49 Nucleated RBC % 0 Sodium 140 Potassium 3.5 Chloride 107 Carbon Dioxide 27.0 Anion Gap 6 BUN 14 Creatinine 0.80 Estim Creat Clear Calc 56.93 Est GFR (MDRD) Af Amer 93 Est GFR (MDRD) Non-Af 77 BUN/Creatinine Ratio 17.6 Glucose 131 H Calcium 8.8 Magnesium 2.1 Troponin I < 0.015 B-Natriuretic Peptide 2.7 - Rhythm Strip Rhythm Strip: Sinus Rhythm Rate: 80 Ectopy: None - EKG Initial EKG Interpretation: Sinus Rhythm, No Acute Injury Pattern Prior: Unchanged - Medical Decision Making Patient presents with sneezing and chest pain. EKG was obtained. Was sinus rhythm without acute ischemia. There is no change from prior. The patient had no change in pain with nitro. She had a negative heart catheterization a year ago. Metabolic work-up was pursued. Chest x-ray reviewed by myself shows no evidence of infiltrate, pneumothorax, or effusion. The patient's labs are unremarkable. Cardiac enzymes are negative. She is had pain for a day and a half. She is had a recent negative cath. Her Covid is negative. My suspicion for acute coronary syndrome is very low. I do not feel this represents ischemic pain. She has had a scant cough and a lot of sneezing. She does have underlying lung disease. I am going to treat her with a short burst of prednisone. The patient will be discharged home. Impression 1. Atypical chest pain ED Disposition - Plan for ED Patient: Instructions: ED Chest Pain, Noncardiac Prescriptions: Prednisone [Deltasone] 40 mg PO DAILY #10 tab Prescription Printed Referrals: Mark Hines NP, SUPERVISOR BOARDING-C [Primary Care Provider] -
[2020-05-27 02:02] VITALS: BP 114/56; PULSE 86; PULSE 90; RESP 11; RESP 16; TEMP 37.1; O2SAT 96; O2SAT 98
[2020-05-27] MEDS: Aspirin 81 MG TAB.CHEW 324 MG PO (02:22)
[2020-05-27 02:23] LABS: Absolute Lymphocyte Count 3.49 X10^3/uL (0.83-4.51); Absolute Neutrophil Count 3.8 X10^3/uL (2.0-7.7); Basophil% 1.2 % (0-1); Eosinophil# 0.42 X10^3/uL; Eosinophils% 4.8 % (0-5); Hematocrit 42.6 % (37-47); Hemoglobin 14.1 g/dL (12.0-15.0); Lymphocyte # 3.49 X10^3/ul (4.0); Lymphocyte % 40.2 % (19-41); Mean Corp Hgb Conc 33.1 g/dL (32-36); Mean Corpuscular Hgb 31.7 pg (27.0-32.0); Mean Corpuscular Volume 95.7 fL (81-99); Mean Platelet Vol. 10.3 fl (6.2-12.0); Monocyte# 0.91 X10^3/uL; Monocyte% 10.5 % (0-10); NRBC Flagged by Analyzer 0 % (0-5); Neutrophil # 3.75 X10^3/uL (2.7-7.7); Neutrophil % 43.2 % (47-70); Platelet Count 266 K/mm3 (150-450); RBC Distribution Width CV 12.1 % (11.6-14.6); Red Blood Count 4.45 M/mm3 (4.2-5.4); White Blood Count 8.7 K/mm3 (4.4-11.0)
[2020-05-27] MEDS: Ondansetron 4 MG/2 ML Vial IV (02:23)
--- NOTE | 2020-05-27 02:41 | NURSING ---
States her pain is worse and then states it is now on her L side (not right side as she said and pointed to, upon arrival. States the pain is in her heart.Then, states the pain is also in her back. States she cannot breath. No distress noted. Patient is asking for stronger pain med. Will let Dr Tafoya know.
[2020-05-27 02:43] LABS: Anion Gap 6 (5-15); BNP,B-Type NATRIURETIC PEPTIDE 2.7 pg/mL (0-100); BUN 14 mg/dL (7-18); BUN/Creat Ratio 17.6 RATIO (10-20); Calcium,Total 8.8 mg/dL (8.5-10.1); Chloride 107 mmol/L (98-107); EST Glomerular Filtration Rate 77 mL/min (>60); Est Glom Filt Rate - Afr Amer 93 mL/min (>60); Estimated Creatinine Clearance 56.93 ml/min; Glucose 131 mg/dL (74-106); Magnesium 2.1 mg/dL (1.6-2.6); Potassium 3.5 mmol/L (3.5-5.1); Sodium Level 140 mmol/L (136-145)
[2020-05-27 02:45] VITALS: BP 120/56; PULSE 94; RESP 16; O2SAT 94
[2020-05-27] MEDS: Morphine 4 MG/ML Syringe IV (02:56)
[2020-05-27 03:00] VITALS: BP 128/71; PULSE 94; RESP 14; O2SAT 96
[2020-05-27 03:02] VITALS: BP 128/71; PULSE 95; RESP 12; TEMP 36.6; O2SAT 95
--- NOTE | 2020-05-27 03:15 | RAD_ITS ---
STUDY: X-RAY CHEST REASON FOR EXAM: Female, 64 years old. chest pain x 2 days TECHNIQUE: Single frontal view of the chest. COMPARISON: None. FINDINGS: Low lung volumes. Nonspecific elevation right hemidiaphragm. No pneumothorax or pleural effusion. Chronic lung changes. No focal consolidation. Cardiomegaly. Aortic calcifications. There are diffuse degenerative changes of the visualized thoracic spine. There is degenerative osteoarthritis of the bilateral shoulders. There is no demonstrated abnormality of the visualized soft tissue structures of the upper abdomen. RAD/Chest 1 View (Portable) IMPRESSION: Cardiomegaly. No focal consolidation. Electronically Signed: Mark Norris MD at 3:34 EST Tel , Service support ,
== END 2020-05-27 06:06 | disposition home or self-care (01) ==
LOC: ED 03:06
PROVIDERS: Emergency Provider Emergency Medicine; PCP Nurse Practitioner Primary Care
DX: R07.89 Other chest pain (principal); I10 Essential (primary) hypertension; F25.9 Schizoaffective disorder, unspecified; Z90.49 Acquired absence of other specified parts of digestive tract
CPT/HCPCS: 71045; 80048; 83735; 83880; 84484; 85025; 87426; 93005; 96374; 96375; 99285; A4216; J2405

== ENCOUNTER 2020-06-01 18:50 | Emergency (ER) | payer MEDICARE, MEDICAID, SELFPAY ==
[2020-06-01 18:50] VITALS: BP 121/64; PULSE 60; RESP 16; O2SAT 99
[2020-06-01 18:52] VITALS: PULSE 64; RESP 18; TEMP 36.6; O2SAT 99; BMI 48.1
--- NOTE | 2020-06-01 19:20 | RAD_ITS ---
STUDY: X-RAY - LUMBAR SPINE REASON FOR EXAM: Female, 64 years old. FALL DURING TRANSFER. PAIN IN NECK AND BACK TECHNIQUE: 2 view(s) of the lumbar spine were obtained. COMPARISON: None FINDINGS: Normal lumbar lordosis. There is no substantial scoliosis. There is a normal alignment of the vertebrae. There is multilevel endplate spondylosis of the lumbar vertebrae. There is multi-level degenerative disc disease with multi-level disc space narrowing. There is a right hip arthroplasty in place. The soft tissue structures are unremarkable. RAD/Lumbar Spine 2 or 3 Views IMPRESSION: Degenerative changes. Electronically Signed: Bebe Meredith MD at 20:20 EST Tel , Service support ,
--- NOTE | 2020-06-01 19:20 | ED.DCSUM_ITS ---
- ER Visit Summary Date of Service: 06/01/20 Chief Complaint: Fall History of Present Illness: The patient is a 64 F who presents after a fall that occurred today approximately 2 hours prior to arrival. Patient states she was being helped while transferring from her wheelchair and the paramedics dropped her. Patient states she has pain in her hips up to her neck. Patient states she is normally nonambulatory. Patient describes her pain is aching and throbbing. Patient states nothing makes it better or worse. Patient denies any head injury or loss of consciousness. Patient denies any paresthesias. Physical Examination: Vital signs are stable. Patient is afebrile. Patient is in no acute distress. Oral mucosa is pink and moist. Neck is supple. Trachea is midline. There is no JVD. Heart was regular rate and rhythm. Lungs are clear and equal bilaterally. Abdomen is soft. Bowel sounds are normal. There is no tenderness. Cranial nerves II through XII are grossly intact. There are no focal motor or sensory deficits noted. Musculoskeletal exam reveals tendern ess over the cervical, thoracic, and lumbar spine and paraspinal muscles. There is also some mild tenderness over the hips bilaterally. There is no obvious deformity noted. Range of motion was limited in all motions of the cervical, thoracic, and lumbar spine secondary to pain. Test Results: X-rays of the cervical spine were obtained. There are 4 views. On my interpretation, there is no acute fracture, spondylolisthesis, or spondylolysis. There is no soft tissue swelling. Radiologist also interpreted the x-rays and agrees. X-rays of the thoracic spine were obtained. There are 3 views. On my interpretation, there are some degenerative changes but there is no acute fracture. There is no soft tissue swelling. There is no spondylolisthesis or spondylolysis. Radiologist also interpreted the x-rays and agrees. X-rays of the lumbar spine were obtained. There are 2 views. On my interpretation, there are some degenerative changes but there is no acute fracture. There is no soft tissue swelling. There is no spondylolisthesis or spondylolysis. Radiologist also interpreted the x-rays and agrees. X-rays of the pelvis were obtained. There is 1 view. On my interpretation, there is no acute fracture. There is no soft tissue swelling. There is no spondylolisthesis or spondylolysis. Radiologist also interpreted the x-rays and agrees. Emergency Department Course and Treatment: Patient was given a dose of [place] here. Patient had minimal relief with this. Patient was given a dose of morphine. Patient was instructed to use ice to the area. Patient was instructed use Tylenol or ibuprofen as needed for pain. Patient was instructed return if worse in any way. Patient understood and was agreeable with the plan. All questions were answered. Disposition: Discharge home Impression: 1. Lumbosacral strain 2. Acute cervical strain This note was generated with ncyclo dictation software. It may contain incorrect words, spelling, and punctuation that were not noted in review of the chart prior to signing ED Disposition - Plan for ED Patient: Disposition: Home or Assisted Living Diagnosis: Lumbosacral strain, Cervical myofascial strain Instructions: ED Back Sprain/Strain Referrals: Mark Hines NP, PREPRINT ANALYST-C [Primary Care Provider] - 5-7 Days
--- NOTE | 2020-06-01 19:36 | RAD_ITS ---
STUDY: X-RAY - CERVICAL SPINE REASON FOR EXAM: Female, 64 years old. FALL DURING TRANSFER. PAIN IN NECK AND BACK TECHNIQUE: 3 view(s) of the cervical spine were obtained. COMPARISON: None FINDINGS: Normal anterior atlantoaxial articulation. Normal odontoid process. Normal cervical lordosis. There is multi-level endplate spondylosis. Normal disc space heights. There are degenerative changes of the posterior elements. The soft tissue structures are unremarkable. There is a separate dedicated x-ray of the thoracic spine. RAD/Cerv Spine 2 or 3 Views IMPRESSION: Degenerative changes. Electronically Signed: Bebe Meredith MD at 20:18 EST Tel , Service support ,
--- NOTE | 2020-06-01 19:36 | RAD_ITS ---
STUDY: X-RAY - PELVIS REASON FOR EXAM: Female, 64 years old. FALL DURING TRANSFER. PAIN IN NECK AND BACK TECHNIQUE: One view of the pelvis was obtained. COMPARISON: 01/02/2019 FINDINGS: There is a non-specific bowel gas pattern. There are multiple calcified phleboliths. There are degenerative changes of the sacroiliac joints. Normal visualized bilateral superior and inferior pubic rami. Normal pubic symphysis. Normal ischial tuberosities. There is a right hip arthroplasty in place that is grossly anatomic in alignment. There are degenerative changes of the left hip. RAD/Pelvis 1 or 2 Views IMPRESSION: Degenerative changes. Electronically Signed: Bebe Meredith MD at 20:21 EST Tel , Service support ,
--- NOTE | 2020-06-01 19:36 | RAD_ITS ---
STUDY: X-RAY - THORACIC SPINE REASON FOR EXAM: Female, 64 years old. FALL DURING TRANSFER. PAIN IN NECK AND BACK TECHNIQUE: 3 view(s) of the thoracic spine were obtained. COMPARISON: None. FINDINGS: Normal kyphosis of the thoracic spine. There is no substantial scoliosis. There is multilevel endplate spondylosis of the thoracic vertebrae. There is multilevel disc space narrowing of the thoracic spine. The soft tissue structures are unremarkable. RAD/Thoracic Spine 3 Views IMPRESSION: Degenerative changes. Electronically Signed: Bebe Meredith MD at 20:19 EST Tel , Service support ,
[2020-06-01] MEDS: HYDROcodone Bitartrate/Apap 5/325 Tablet PO (20:19)
[2020-06-01 20:50] VITALS: BP 106/77; PULSE 61; RESP 16; O2SAT 98
[2020-06-01 21:07] VITALS: BP 107/74; PULSE 60; RESP 16; TEMP 37.1; O2SAT 98
[2020-06-01] MEDS: Morphine 2 MG/ML Syringe IM (21:25)
--- NOTE | 2020-06-02 | NURSING ---
Patient declined to take IBU, tylenol and aleve, including generic alternatives. She is aware she was discharged over two hours ago and the doctor who had seen her is now gone and the new doctor is offering these options to help her pain as she has already had norco and morphine. She still does not want to take any of these options. She is aware tylenol is in the norco we gave her but states she still does not want it and states she uses medical marijuana. I explained we do not have that here. She then states she uses CBD gummies. Explained we still do not have that available. Told her the cab should be here shortly and she is aware to let me know if this nurse can do anything else for her.
== END 2020-06-02 00:24 | disposition home or self-care (01) ==
PROVIDERS: Emergency Provider Emergency Medicine; PCP Nurse Practitioner Primary Care
DX: S39.012A Strain of muscle, fascia and tendon of lower back, initial encounter (principal); S16.1XXA Strain of muscle, fascia and tendon at neck level, initial encounter; W19.XXXA Unspecified fall, initial encounter
CPT/HCPCS: 72040; 72072; 72100; 72170; 96372; 99284

== ENCOUNTER 2020-06-19 21:59 | Emergency (ER) | payer MEDICARE, MEDICAID, SELFPAY ==
[2020-06-19 22:01] VITALS: BP 126/71; PULSE 96; RESP 18; TEMP 36.6; O2SAT 97; BMI 50.7
--- NOTE | 2020-06-19 22:18 | CT_ITS ---
HISTORY: FEELS LIKE SHE IS GOING TO PASS OUT, C/O [place] AND NECK PAIN AND BACK PAIN X 30 MINS, HX SZ,CHF, [place], [place] ADDITIONAL HISTORY: None provided COMPARISON: None TECHNIQUE: Noncontrast CT images of the cervical spine. 2D images were reviewed to aid in assessment of the cervical spine. A radiation dose optimization technique was used for this scan. Number of images including paperwork: 400 FINDINGS: BONES: No acute fracture. No suspicious bone lesion. VERTEBRAL ALIGNMENT: No traumatic subluxation. Preservation of the normal cervical lordosis. DISCS AND JOINTS: Mild discogenic degenerative changes, most pronounced at C5-6 and C7/T1. Facet arthropathy. SPINAL CANAL AND FORAMINA: No critical canal stenosis. SOFT TISSUES: No prevertebral soft tissue swelling. No pathologic-appearing cervical adenopathy. LUNG APICES: Unremarkable. PARANASAL SINUSES: Unremarkable imaged portions if any. CT/Spine Cervical without Contras IMPRESSION: No acute osseous abnormality. Cervical spondylosis. Individualized dose optimization techniques were used for this CT. at 2342 Reported and signed by: Tiara Winkler MD Electronically Signed: Tiara Winkler MD at 23:42 EST Tel , Service support ,
--- NOTE | 2020-06-19 22:36 | ED.VIS.GEN ---
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 Patient tells me that while being transported she fell off of a left the beginning the month. She states she had x-rays that were negative. She states that today night she was asleep and she woke with neck pain. She did not take anything for her pain because she only takes cannabis but she has not been able to get to the local dispensary recently. She states that now she has painful urination and her low back hurts and is rating down her leg. Patient has multiple medical problems and is well-known to the emergency department. Patient denies any urinary retention her fecal incontinence. No loss of sensation of her legs. No muscle weakness. She states that her biggest concern is that she may have a kidney stone and she is also concerned that she has a neck fracture that is not showing up on plain films. - Past Medical History (1) Ventricular tachycardia (paroxysmal) Status: Chronic (2) Anxiety and depression Status: Chronic (3) COPD (chronic obstructive pulmonary disease) Status: Chronic (4) Diabetes Status: Chronic (5) HTN (hypertension) Status: Chronic (6) MVP (mitral valve prolapse) Status: Chronic (7) Morbid obesity Status: Chronic (8) Osteoarthritis Status: Chronic (9) Tobacco use Status: Chronic (10) Seizure Status: Resolved Past Medical History - Allergies and Home Meds Allergies/Adverse Reactions: Allergies sumatriptan [From Imitrex] Adverse Reaction (Verified 06/19/20 22:07) Vomiting sumatriptan succinate [From Imitrex] Adverse Reaction (Verified 06/19/20 22:07) Vomiting BEE STING Allergy (Uncoded 06/19/20 22:07) Anaphylaxis PAPER TAPE Adverse Reaction (Uncoded 06/19/20 22:07) Rash Primary Care Physician: Mark Hines NP, CREDIT COLLECTIONS ANALYST-C [Primary Care Provider] - Surgical History: cholecystectomy, total hip arthroplasty, total knee arthroplasty - Bilateral, - - Surgery for wrist fracture, surgery for shoulder dislocation Smoking Status: Former smoker Alcohol: None Drugs: Marijuana - Family History Paternal Family History: Reports: Diabetes, Heart Disease, - Maternal Family History: Reports: - Review of Systems General: Denies: Chills, Fever, Sweats Eyes: Denies: Visual changes - bilaterally, Diplopia ENT: Denies: Rhinorrhea, Sore throat Cardiovascular: Denies: Chest pain, Palpitations Respiratory: Denies: Dyspnea, Cough, Dyspnea on exertion Gastrointestinal: Denies: Abdominal pain, Nausea, Vomiting, Diarrhea, Melena, Hematochezia Genitourinary: Reports: Dysuria. Denies: Hematuria, Frequency Musculoskeletal: Reports: Neck pain. Denies: Back pain, Extremity Pain Skin: Denies: Rash, Wounds Neurological: Denies: Headache, Weakness, Numbness Physical Exam Vital Signs/Narrative: Vital Signs Temp Pulse Resp BP Pulse Ox 06/19/20 22:01 97.9 F 96 18 126/71 H 97 General: Well nourished, Well developed, Obese - Patient is morbidly obese which precludes examination of confidence., No Acute Distress Head: Normocephalic, Atraumatic Eyes: Perrl, EOMI ENT: Moist mucous membranes, No rhinorrhea Neck: Supple, - - Diffuse tenderness palpation out of proportion to exam. Cardiovascular: Regular rate, Regular rhythm, No murmurs Respiratory: No distress, CTA bilaterally, Chest nontender Abdomen: Soft, Nontender, Nondistended, Normal bowel sounds Back: - - Diffuse tenderness to palpation of the lumbar spine. Extremities: Nontender, No edema Skin: Normal color, No rash Neurological: Alert, Oriented x3, Cranial nerves II-XII grossly intact, Normal Strength, Normal Sensation Psychological: Normal affect, Normal Mood Diagnostic/Tx/Re-eval Clinical Impression(s) from Imaging Studies Cervical Spine CT 06/19/20 22:18 IMPRESSION: No acute osseous abnormality. Cervical spondylosis. Individualized dose optimization techniques were used for this CT. at 2342 Reported and signed by: Tiara Winkler MD Electronically Signed: Tiara Winkler MD at 23:42 EST Tel , Service support , Laboratory Last Values Urine Color Yellow (Yellow) 06/19/20 22:50 Urine Clarity Sl. Cloudy (Clear) 06/19/20 22:50 Urine pH 5.0 (5.0 - 8.0) 06/19/20 22:50 Ur Specific [place] 1.025 (1.002-1.030) 06/19/20 22:50 Urine Protein Negative mg/dl (Negative) 06/19/20 22:50 Urine Glucose (UA) Normal mg/dl (Normal) 06/19/20 22:50 Urine Ketones 5 mg/dl (Negative) H 06/19/20 22:50 Urine Occult Blood Negative /ul (Negative) 06/19/20 22:50 Urine Nitrite Negative (Negative) 06/19/20 22:50 Urine Bilirubin Negative mg/dL (Negative) 06/19/20 22:50 Urine Urobilinogen Normal mg/dl (Normal) 06/19/20 22:50 Ur Leukocyte Esterase Negative /ul (Negative) 06/19/20 22:50 Urine RBC 0 SEEN /hpf (0-5) 06/19/20 22:50 Urine WBC 0-5 SEEN /hpf (0-5) 06/19/20 22:50 Ur Squamous Epith Cells 0-5 SEEN /hpf (5-10) 06/19/20 22:50 Amorphous Sediment 1+ URATE 06/19/20 22:50 Urine Bacteria 0 SEEN /hpf (None Seen) 06/19/20 22:50 Urine Mucus 0 SEEN /hpf (<or=2+) 06/19/20 22:50 - Medical Decision Making Patient has no evidence of urinary tract infection. CT of the cervical spine demonstrates no acute fracture. The patient informed me that the only thing that she can take for pain is IV pain medication or cannabis. As the patient's pain is not acute and I am not a cannabis dispensary the patient was informed that I do not feel narcotics is indicated in this case. I was informed by nursing that the patient has left the emergency department. ED Disposition - Plan for ED Patient: Disposition: Home or Assisted Living Diagnosis: Dysuria, Neck pain, Back pain, Drug-seeking behavior Instructions: ED Dysuria, Uncertain Cause (Adult), ED Neck Pain Referrals: Mark Hines NP, CREDIT COLLECTIONS ANALYST-C [Primary Care Provider] - 1 Week
[2020-06-19 22:58] LABS: Bacteria 0 SEEN /hpf (None Seen); Mucous, Urine 0 SEEN /hpf (<or=2+); Red Blood Cells-Urine 0 SEEN /hpf (0-5)
[2020-06-19 23:01] LABS: Color, Urine Yellow (Yellow); Glucose, Dipstick Normal (Normal); Ketone-Dipstick 5 mg/dl (Negative); Leukocyte Esterase-Dipstick Negative /ul (Negative); Nitrite-Dipstick Negative (Negative); Occult Blood-Urine Negative /ul (Negative); Protein-Dipstick Negative (Negative); Specific Gravity, Urine 1.025 (1.002-1.030); Urine Bilirubin Dipstick Negative (Negative); Urine Clarity Sl. Cloudy (Clear); Urine Urobilinogen Normal (Normal)
[2020-06-19 23:08] LABS: Squamous Epithelial Cells - UA 0-5 SEEN /hpf (5-10); White Blood Cells 0-5 SEEN /hpf (0-5)
[2020-06-19 23:10] LABS: Amorphous Sediment 1+ URATE
--- NOTE | 2020-06-19 23:31 | ED.RN ---
Patient reports she is having shoulder pain she reported to the doctor and is upset she only got a neck xray and states she is here and wants pain med and has not had any. She states had discussed med options with the doctor and declined PO pain med and states the last time they gave her morphine and it is ridiculous she will only get tylenol today. She is aware the doctor offered PO pain med like tylenol and she states she is not taking that and is declined the PO pain med.
--- NOTE | 2020-06-19 23:44 | ED.RN ---
pt called out requesting pain medications. pt offered Tylenol, pt refused. pt requests morphine. pt told she was not going to get any narcotic pain medications. Pt starts yelling at staff. Pt then yells get my a wheelchair, im going home patient assisted into wheelchair and placed in waiting room to wait for the taxi she called for herself. Dr Fry made aware.
== END 2020-06-19 23:49 | disposition home or self-care (01) ==
LOC: ED 22:23
PROVIDERS: Emergency Provider Emergency Medicine; PCP Nurse Practitioner Primary Care
DX: R30.0 Dysuria (principal); M54.2 Cervicalgia; M54.9 Dorsalgia, unspecified; E66.01 Morbid (severe) obesity due to excess calories; Z90.49 Acquired absence of other specified parts of digestive tract; Z87.891 Personal history of nicotine dependence
CPT/HCPCS: 72125; 81001; 99284

== ENCOUNTER 2020-09-01 08:29 | Emergency (ER) | payer MEDICARE, MEDICAID, SELFPAY ==
[2020-09-01 08:31] VITALS: BP 114/67; PULSE 83; RESP 20; TEMP 36.5; O2SAT 96; BMI 46.3
--- NOTE | 2020-09-01 08:49 | CT_ITS ---
STUDY: CT ABDOMEN AND PELVIS WITHOUT CONTRAST REASON FOR EXAM: Female, 64 years old. 2 day history of left flank pain. RADIATION DOSAGE (If Supplied By Facility): CTDIvol = ( 45.09 ) mGy, DLP = ( 2252.82 ) mGycm TECHNIQUE: Transaxial images were obtained from the dome of the diaphragm to the symphysis pubis without oral contrast, and without intravenous contrast. Sagittal and coronal images were reconstructed. Individualized dose optimization techniques were used for this CT. COMPARISON: Comparison is made with prior study dated 11/24/2014. FINDINGS: The visualized lung bases are unremarkable. The visualized portions of the heart are within normal limits. Normal liver. The patient is status post cholecystectomy. Normal spleen. Normal pancreas. Normal bilateral adrenal glands. Normal right kidney. Punctate calculus in the lower pole calyx of the left kidney. Normal visualized stomach. Normal small intestine. There are scattered colonic diverticula consistent with diverticulosis. The appendix is visualized and appears normal. There is scattered atherosclerotic calcification of the abdominal aorta, without a demonstrated aneurysm. Normal inferior vena cava. Normal retroperitoneum. Normal urinary bladder. There is a small umbilical hernia containing fat. The neck of the hernia measures 1.4 cm. Normal osseous structures. Right hip replacement. CT/Abdomen/Pelvis without Cont IMPRESSION: Status post cholecystectomy. Punctate calculus in the lower pole calyx of the left kidney. Small umbilical hernia. Electronically Signed: Raoul Cobian MD at 9:49 EDT , Service support ,
[2020-09-01] MEDS: Ondansetron 4 MG/2 ML Vial IV (09:07)
[2020-09-01] MEDS: Morphine 4 MG/ML Syringe IV (09:07)
--- NOTE | 2020-09-01 09:13 | EX.ED.DYSGE1 ---
HPI History of Present Illness Chief Complaint: Flank Pain Informant: patient Onset/Context/Timing Onset: Yesterday Current Severity: Moderate Maximum Severity: Moderate Narrative Narrative: 64-year-old female presenting with left flank pain. Patient states it started yesterday. She has pain in her left lower quadrant that radiates to her left low back. She has history of kidney stones. She states she started having nausea and vomiting this morning. She denies dysuria or hematuria. Denies chest pain or shortness of breath. Denies fever. She called her primary care physician and was unable to get in. She then called EMS. She was given Toradol in route to the hospital. Prior similar symptoms: Yes Recent Illness/Hospitalization: No PFSH [facility] Medical History (Updated 09/01/20 @ 12:[address] Fernanda Kan MD) Anxiety Asthma Chronic pain Coronary artery disease Depression Depression Former smoker GERD (gastroesophageal reflux disease) Hypertension Irregular heart beat Migraines On home oxygen therapy PTSD (post-traumatic stress disorder) Seizures Stroke/cerebrovascular accident Home Medications albuterol sulfate 2 puff INHALATION Q6H PRN PRN 02/20/18 [History Last Taken 06/21/19 18:00] prazosin 4 mg PO QHS 03/13/19 [History Last Taken 06/19/19] calcium carbonate-vitamin D3 1 ea PO DAILY 06/13/19 [History Last Taken 06/19/19] metoprolol succinate 25 mg PO DAILY 07/08/19 [History Last Taken 07/21/19] divalproex 250 mg PO BIDCM 11/15/19 [History Last Taken Unknown] topiramate 200 mg PO BID 11/15/19 [History Last Taken Unknown] duloxetine 30 mg PO DAILY 05/27/20 [History Last Taken Unknown] lurasidone 1 tab PO DAILY 05/27/20 [History Last Taken Unknown] pantoprazole 40 mg PO DAILY 05/27/20 [History Last Taken Unknown] prednisone 40 mg PO DAILY #10 tab 05/27/20 [Rx Last Taken Unknown] hydrocodone-acetaminophen 1 tab PO Q6H PRN PRN 3 Days #10 tablet 09/01/20 [Rx Last Taken Unknown] Allergy/AdvReac Type Severity Reaction Status Date / Time sumatriptan [From Imitrex] AdvReac Vomiting Verified 09/01/20 08:35 sumatriptan succinate AdvReac Vomiting Verified 09/01/20 08:35 [From Imitrex] BEE STING Allergy Anaphylaxis Uncoded 09/01/20 08:35 PAPER TAPE AdvReac Rash Uncoded 09/01/20 08:35 Surgical History H/O hand surgery H/O knee surgery History of cholecystectomy History of left heart catheterization (06/23/19) Social History (Updated 08/26/19 @ 12:[address] Juan Nunes, DO) Smoking Status: Former smoker ROS ROS ED Constitutional Constitutional ED: Denies fever(s) Eyes Eyes: Denies change in vision ENT ENT ED: Denies rhinorrhea or sore throat Cardiovascular Cardiovascular: Denies chest pain or palpitations Respiratory/Chest Respiratory/Chest: Denies cough or dyspnea Gastrointestinal Gastrointestinal: Reports abdominal pain, nausea and vomiting; Denies diarrhea Genitourinary Genitourinary ED: Denies dysuria or hematuria Musculoskeletal Musculoskeletal: Denies myalgias Integumentary Denies rash Neurologic Neurologic: Denies headache(s) Psychiatric Psychiatric: Denies suicidal thoughts EXAM Physical Exam Const Vital Signs: 09/01/20 08:31 09/01/20 12:15 Temperature 97.7 F L Temperature Source Temporal Pulse Rate 83 66 Respiratory Rate 20 H 12 Blood Pressure 114/67 124/66 H Blood Pressure Mean 82 85 Pulse Ox 96 100 Oxygen Delivery Method Room Air Room Air Positive well nourished and well developed General Appearance ED: well developed HEENT Reports normocephalic and head/scalp atraumatic Eyes PERRL and EOMs intact bilaterally Neck supple General: Negative for tenderness Chest Wall inspection of chest normal Resp normal respiratory effort and clear to auscultation bilaterally Cardio regular rate and regular rhythm GI non-distended GI Narrative: Left lower quadrant tenderness Palpation: soft; Negative for guarding or rebound tenderness present no CVA tenderness Back/Spine General Back: CVA tenderness left Extremity normal to inspection Neuro oriented x3 Sensorium / Orientation: alert Psych mental status grossly normal Skin no rashes or lesions noted MDM MDM MDM Narrative Medical decision making narrative: Patient given morphine, Zofran IV. Patient is resting comfortably on reevaluation. She will follow up with her primary care physician. She is given prescription for [place]. Advised return to ED for worsening complaints. Lab Data Attestation: I reviewed the patient's lab results. Labs: Laboratory Results - last 24 hr 09/01/20 09/01/20 09/01/20 09:06 09:06 11:25 WBC 7.6 RBC 3.87 L Hgb 12.3 Hct 37.6 MCV 97.2 MCH 31.8 MCHC 32.7 RDW Std Deviation 48.0 H RDW Coeff of Lenora 13.4 Plt Count 208 MPV 11.0 Immature Gran % (Auto) 0.300 Neut % (Auto) 58.0 Lymph % (Auto) 24.0 [place] % (Auto) 12.0 H Eos % (Auto) 5.0 Baso % (Auto) 0.7 Absolute Neuts (auto) 4.4 Absolute Lymphs (auto) 1.82 Nucleated RBC % 0 Sodium 144 Potassium 3.3 L Chloride 109 H Carbon Dioxide 30.0 Anion Gap 5 BUN 12 Creatinine 0.79 Estim Creat Clear Calc 57.65 Est GFR (MDRD) Af Amer 94 Est GFR (MDRD) Non-Af 78 BUN/Creatinine Ratio 15.1 Glucose 124 H Calcium 8.6 Urine Color Yellow Urine Clarity Sl. Cloudy Urine pH 6.5 Ur Specific Rudolph 1.020 Urine Protein 15 H Urine Glucose (UA) Normal Urine Ketones 5 H Urine Occult Blood Negative Urine Nitrite Negative Urine Bilirubin Negative Urine Urobilinogen 1 H Ur Leukocyte Esterase 25 H Urine RBC 0 SEEN Urine WBC 0-5 SEEN Ur Squamous Epith Cells 0-5 SEEN Urine Bacteria 0 SEEN Urine Mucus 2+ Radiography Diagnostic Testing: Radiology Impression Abdomen/Pelvis CT 09/01/20 08:49 IMPRESSION: Status post cholecystectomy. Punctate calculus in the lower pole calyx of the left kidney. Small umbilical hernia. Electronically Signed: Raoul Cobian MD at 9:49 EDT , Service support , Discharge Plan Triage Chief Complaint: Flank Pain ED Provider: Fernanda Kan Dx/Rx/DC Orders Clinical Impression: Abdominal pain Instructions: ED Abdominal Pain Unkn Cause Fem Prescriptions: New hydrocodone-acetaminophen [hydrocodone-acetaminophen] 1 TABLET tablet 1 tab PO Q6H PRN PRN (Reason: Pain) 3 Days Qty: 10 RF: 0 No Action albuterol sulfate 1 INHALER inhaler 2 puff inhalation Q6H PRN PRN (Reason: Shortness Of Breath) RF: 0 prazosin 2.000 capsule 4 mg PO QHS RF: 0 calcium carbonate-vitamin D3 1 EACH tablet 1 ea PO DAILY RF: 0 metoprolol succinate 25 MG tablet extended release 24 hr 25 mg PO DAILY RF: 0 divalproex 250 MG tablet 250 mg PO BIDCM RF: 0 topiramate 200 MG tablet 200 mg PO BID RF: 0 pantoprazole 40 MG tablet 40 mg PO DAILY RF: 0 lurasidone 40 MG tablet 1 tab PO DAILY RF: 0 duloxetine 30 MG capsule,delayed release(DR/EC) 30 mg PO DAILY RF: 0 prednisone 20 MG tablet 40 mg PO DAILY Qty: 10 RF: 0 Primary Care Provider: Fatoumata Rosen Referrals: Fatoumata Rosen MD [Primary Care Provider] - Disposition Disposition: Home, self care
[2020-09-01 09:14] LABS: Absolute Lymphocyte Count 1.82 X10^3/uL (0.83-4.51); Absolute Neutrophil Count 4.4 X10^3/uL (2.0-7.7); Basophil# 0.05 X10^3/uL; Basophil% 0.7 % (0-1); Eosinophil# 0.38 X10^3/uL; Hematocrit 37.6 % (37-47); Hemoglobin 12.3 g/dL (12.0-15.0); Lymphocyte # 1.82 X10^3/ul (0.83-4.51); Mean Corp Hgb Conc 32.7 g/dL (32-36); Mean Corpuscular Hgb 31.8 pg (27.0-32.0); Mean Corpuscular Volume 97.2 fL (81-99); Monocyte# 0.91 X10^3/uL; NRBC Flagged by Analyzer 0 % (0-5); Neutrophil # 4.39 X10^3/uL (2.7-7.7); Platelet Count 208 K/mm3 (150-450); RBC Distribution Width CV 13.4 % (11.6-14.6); Red Blood Count 3.87 M/mm3 (4.2-5.4); White Blood Count 7.6 K/mm3 (4.4-11.0)
[2020-09-01 09:29] LABS: Anion Gap 5 (5-15); BUN 12 mg/dL (7-18); BUN/Creat Ratio 15.1 RATIO (10-20); Calcium,Total 8.6 mg/dL (8.5-10.1); Chloride 109 mmol/L (98-107); Creatinine, Serum 0.79 mg/dL (0.55-1.02); EST Glomerular Filtration Rate 78 mL/min (>60); Est Glom Filt Rate - Afr Amer 94 mL/min (>60); Estimated Creatinine Clearance 57.65 ml/min; Glucose 124 mg/dL (74-106); Potassium 3.3 mmol/L (3.5-5.1); Sodium Level 144 mmol/L (136-145)
--- NOTE | 2020-09-01 11:31 | ED.RN ---
Pt requested pain medication. Physician is aware. No new orders at this time.Pt straight cathed for UA sample. Pt becomes very rude and hostile towards staff.Pt pulled out IV stating it had blood in it.
[2020-09-01 11:35] LABS: Bacteria 0 SEEN /hpf (None Seen); Red Blood Cells-Urine 0 SEEN /hpf (0-5)
[2020-09-01 11:40] LABS: Color, Urine Yellow (Yellow); Glucose, Dipstick Normal (Normal); Ketone-Dipstick 5 mg/dl (Negative); Leukocyte Esterase-Dipstick 25 /ul (Negative); Nitrite-Dipstick Negative (Negative); Occult Blood-Urine Negative /ul (Negative); Protein-Dipstick 15 mg/dl (Negative); Urine Bilirubin Dipstick Negative (Negative); Urine Clarity Sl. Cloudy (Clear); Urine Urobilinogen 1 mg/dl (Normal); Urine pH 6.5 (5.0 - 8.0)
[2020-09-01 11:46] LABS: Mucous, Urine 2+ /hpf (<or=2+); Squamous Epithelial Cells - UA 0-5 SEEN /hpf (5-10); White Blood Cells 0-5 SEEN /hpf (0-5)
[2020-09-01 12:15] VITALS: BP 124/66; PULSE 66; RESP 12; O2SAT 100
[2020-09-01 13:17] VITALS: BP 101/75; PULSE 81; RESP 16; O2SAT 97
--- NOTE | 2020-09-01 13:22 | ED.RN ---
THIS NURSE REVIEWED D/C INSTRUCTIONS WITH PT. PT VERBALIZED UNDERSTANDING OF INSTRUCTIONS. PT D/C OWN IV. PT DENIES FURTHER NEEDS OR QUESTIONS AT THIS TIME. PT TAKEN OUT TO [facility] VIA W/C
== END 2020-09-01 13:25 | disposition home or self-care (01) ==
PROVIDERS: Emergency Provider Emergency Medicine; PCP Internal Medicine
DX: R10.9 Unspecified abdominal pain (principal); I25.10 Atherosclerotic heart disease of native coronary artery without angina pectoris; Z87.891 Personal history of nicotine dependence; Z87.442 Personal history of urinary calculi
CPT/HCPCS: 74176; 80048; 81001; 85025; 96361; 96374; 96375; 99285; J7030; P9612; A4216; J2405

== ENCOUNTER 2020-09-02 08:58 | Emergency (ER) | payer MEDICARE, MEDICAID, SELFPAY ==
[2020-09-01 08:31] VITALS: BMI 46.3
[2020-09-02 09:04] VITALS: BP 138/71; PULSE 69; PULSE 70; PULSE 71; RESP 13; RESP 18; RESP 20; TEMP 36.6; TEMP 36.7; O2SAT 97; O2SAT 98; BMI 51.2; BMI 51.3
--- NOTE | 2020-09-02 09:10 | ED.RN ---
PT STATES I ONLY WANT THE FEMALE DOCTOR. THE PATIENT ADVOCATE SAID I GET TO PICK WHO MY DOCTOR IS WHEN I'M HERE. THIS NURSE INFORMED THE PT THAT SHE MAY HAVE A LONGER WAIT IF SHE ONLY WANTS THE FEMALE DOCTOR. PT STATES I DON'T CARE. I WILL WAIT HOURS IF I HAVE TO PT STATES MY CHEST HURTS MORE WHEN I TALK OR START YELLING OR WHEN I TAKE A DEEP BREATH.
--- NOTE | 2020-09-02 09:13 | ED.RN ---
THIS RN ENTERRED PT ROOM TO OBTAIN NURSING ASSESSMENT AND INITIATE AN IV BASED ON PT C/O CHEST PAIN. PT REPORTS SHE IS REFUSING AN IV AT THIS TIME. STATES, I WOULD LIKE MY BLOOD WORK DONE SOMEWHERE ELSE. THIS RN PROVIDES PT EDUCATION ABOUT IV. PT CONTINUES TO REFUSE. NOTIFIED. PT REPORTS THAT SHE WANTS TO SEE A FEMALE PHYSICIAN. DR. GOOD AT BEDSIDE. PT STATES, I DO NOT WANT TO SEE YOU GET OUT OF MY ROOM, THE PT ADVOCATE TOLD ME I CAN PICK MY DOCTOR. DR. GOOD LEAVES PT ROOM. PT REMAINS ON DATA MODELING ARCHITECT. VS STABLE. CALL LIGHT IN PLACE, SIDE RAILS UP X 2.
--- NOTE | 2020-09-02 09:15 | EX.ED.DYSGE1 ---
HPI History of Present Illness Chief Complaint: Chest Pain Informant: patient and EMS Narrative Narrative: 64-year-old female arriving to the emergency department via EMS for evaluation of chest pain. Prehospital EKG does not show ACS. Patient has a history of nonsustained V. tach. She had heart cath in 2019 that showed nonobstructive disease. Patient informs me that she does not wish to see a male physician I informed her that I was the doctor assigned to her. She states that she will not speak with me. She tells me that she has been told she gets a choice of who she gets to see. [facility] Medical History (Updated 09/02/20 @ 09:[address] Conor Fry, DO) Anxiety Asthma Chronic pain Coronary artery disease Depression Depression Former smoker GERD (gastroesophageal reflux disease) Hypertension Irregular heart beat Migraines On home oxygen therapy PTSD (post-traumatic stress disorder) Seizures Stroke/cerebrovascular accident Home Medications albuterol sulfate 2 puff INHALATION Q6H PRN PRN 02/20/18 [History Last Taken 06/21/19 18:00] prazosin 4 mg PO QHS 03/13/19 [History Last Taken 06/19/19] calcium carbonate-vitamin D3 1 ea PO DAILY 06/13/19 [History Last Taken 06/19/19] metoprolol succinate 25 mg PO DAILY 07/08/19 [History Last Taken 07/21/19] divalproex 250 mg PO BIDCM 11/15/19 [History Last Taken Unknown] topiramate 200 mg PO BID 11/15/19 [History Last Taken Unknown] duloxetine 30 mg PO DAILY 05/27/20 [History Last Taken Unknown] lurasidone 1 tab PO DAILY 05/27/20 [History Last Taken Unknown] pantoprazole 40 mg PO DAILY 05/27/20 [History Last Taken Unknown] prednisone 40 mg PO DAILY #10 tab 05/27/20 [Rx Last Taken Unknown] hydrocodone-acetaminophen 1 tab PO Q6H PRN PRN 3 Days #10 tablet 09/01/20 [Rx Last Taken Unknown] metformin 500 mg PO DAILY 09/02/20 [History Last Taken Unknown] Allergy/AdvReac Type Severity Reaction Status Date / Time sumatriptan [From Imitrex] AdvReac Vomiting Verified 09/01/20 08:35 sumatriptan succinate AdvReac Vomiting Verified 09/01/20 08:35 [From Imitrex] BEE STING Allergy Anaphylaxis Uncoded 09/01/20 08:35 PAPER TAPE AdvReac Rash Uncoded 09/01/20 08:35 Surgical History H/O hand surgery H/O knee surgery History of cholecystectomy History of left heart catheterization (06/23/19) Social History Smoking Status: Former smoker EXAM Physical Exam Narrative Exam Narrative: Obese female laying in the bed. She appears in no acute distress. Const Vital Signs: 09/02/20 09:04 09/02/20 09:07 09/02/20 09:08 Temperature 97.8 F Temperature Source Oral Pulse Rate 70 Respiratory Rate 20 H Respiratory Effort Normal Non-Labored Normal Non-Labored Blood Pressure 138/71 H Blood Pressure Mean 93 Pulse Ox 98 Oxygen Delivery Method Room Air MDM MDM MDM Narrative Medical decision making narrative: I had the patient advocate, and speak with the patient. She reportedly informed him that there was nothing that he could do for her. I informed the patient that here in the emergency department we do not pick and she was her doctors. If she wishes to stay and be seen she may speak with me if she wishes to leave she may and she at this time is choosing to leave. EKG Initial EKG: Attestation: I personally reviewed and interpreted this EKG as follows: Comments: EKG demonstrates a normal sinus rhythm at a rate of 68 bpm. No concerning features of ACS or ectopy noted. Discharge Plan Triage Chief Complaint: Chest Pain ED Provider: Conor Fry Dx/Rx/DC Orders Clinical Impression: Chest pain Instructions: ED Chest Pain, Uncertain Cause Prescriptions: No Action albuterol sulfate 1 INHALER inhaler 2 puff inhalation Q6H PRN PRN (Reason: Shortness Of Breath) RF: 0 prazosin 2.000 capsule 4 mg PO QHS RF: 0 calcium carbonate-vitamin D3 1 EACH tablet 1 ea PO DAILY RF: 0 metoprolol succinate 25 MG tablet extended release 24 hr 25 mg PO DAILY RF: 0 divalproex 250 MG tablet 250 mg PO BIDCM RF: 0 topiramate 200 MG tablet 200 mg PO BID RF: 0 pantoprazole 40 MG tablet 40 mg PO DAILY RF: 0 lurasidone 40 MG tablet 1 tab PO DAILY RF: 0 duloxetine 30 MG capsule,delayed release(DR/EC) 30 mg PO DAILY RF: 0 prednisone 20 MG tablet 40 mg PO DAILY Qty: 10 RF: 0 hydrocodone-acetaminophen [hydrocodone-acetaminophen] 1 TABLET tablet 1 tab PO Q6H PRN PRN (Reason: Pain) 3 Days Qty: 10 RF: 0 metformin 500 mg tablet 500 mg PO DAILY RF: 0 Primary Care Provider: Fatouamta Rosen Referrals: Fatoumata Rosen MD [Primary Care Provider] - As soon as possible Disposition Disposition: Against Medical Advice
--- NOTE | 2020-09-02 09:40 | EKG12_ITS ---
Test Reason : CP Blood Pressure : / mmHG Vent. Rate : 068 BPM Atrial Rate : 068 BPM P-R Int : 208 ms QRS Dur : 078 ms QT Int : 416 ms P-R-T Axes : 043 -17 009 degrees QTc Int : 442 ms Normal sinus rhythm Inferior infarct , age undetermined Abnormal ECG Confirmed by JANI ROJAS, NADIA ([id number]), business editor HERMAN DOWNS ([id number]) on 09/05/2020 12:48:06 PM Referred By: FLORENTINO/WILLIE Confirmed By:NADIA GUNTER MD
--- NOTE | 2020-09-02 09:53 | ED.RN ---
I am working as the patient advocate today and had been advised this patient was requesting a different physician. I had previously spoken to the physicians and changing at this time was not an option related to the current patient ratio. After being notified I received a phone call regarding this concern. The caller's complaint matched the information shared. I did recognize her voice but the patient refused to identify herself to allow me to verify. She stated she has PTSD and didn't want a male physician. She asked if I had told her she could select her physician in the past. I decided to come to the patient room and speak to her. I introduced myself and asked if I could help her. She refused my assistance and denied making a call to my office.
--- NOTE | 2020-09-02 10:02 | ED.RN ---
THIS NURSE IN THE ROOM WITH DR GOOD SPEAKING WITH THE PT. DR GOOD OFFERED TO TREAT THE PATIENT AND COMPLETE HER EXAMINATION IF SHE WOULD ALLOW. PT STATES NO. I WANT A FEMALE DOCTOR. PT INFORMED THAT WOULD NOT BE OCCURRING SO WE ARE HAPPY TO TREAT HER CONCERNS OR SHE WOULD NEED TO LEAVE. PT STATES I WILL JUST LEAVE THEN
--- NOTE | 2020-09-02 10:12 | ED.RN ---
Called by administration that patient had called them stating we were kicking her out. This RN spoke to patient at bedside and stated that we were not refusing to care for her that Dr Fry had evaluated, assessed and placed orders to be completed by the nurse. Patient refusing to have testing done and requesting to be transferred to [facility] because Dr Carreon is no longer here and you guys cant take care of me here Explained the process, patient still refusing care and continues to state that we wont take care of her and we are kicking her out. Patient also requesting a female doctor. I explained to her the Dr Fry was assigned to take care of her today and a female physician was not an option. Patient continues to make comments that are inaccurate related to staff and hospital. I requested that the HRO come to the room and explained to pt that if she is going to refuse care and treatment that she would need to sign out AMA.
--- NOTE | 2020-09-02 10:12 | ED.RN ---
THIS NURSE IN THE ROOM AGAIN TO SPEAK WITH THE PT AND GIVE HER PAPERWORK. SOON I ENTERED THE ROOM THE PT STATES I'M NOT SIGNING ANYTHING. GET OUT OF MY ROOM. YOU ARE WORTHLESS. I OFFERED THE PT THE D/C INSTRUCTIONS THAT DR GOOD WROTE FOR HER. PT STATES NOPE I DON'T WANT THOSE. I'M NOT SIGNING ANYTHING. YOU ARE NOT GETTING PAID YOU DIDN'T DO ANYTHING. THIS NURSE INFORMED THE PT THAT WE ARE ATTEMPTING TO HELP HER BUT SHE IS REFUSING ALL TREATMENT. PT STATES GET OUT OF MY ROOM. YOU ARE WORTHLESS. THIS NURSE LEFT THE ROOM PER THE PT REQUEST
--- NOTE | 2020-09-02 10:26 | ED.RN ---
THIS NURSE IN THE ROOM TO SEE IF THE PT NEEDS ASSISTANCE SINCE SHE WAS STILL IN THE ROOM. THE PT WAS ON THE PHONE, WHEN ASKED IF SHE NEEDS ASSISTANCE PT STATES I NEED A WHEELCHAIR. THIS NURSE INFORMED THE PT THAT SHE NEVER ASKED FOR A WHEELCHAIR. PT STATES YOU KNOW I NEED A WHEELCHAIR YOU DUMB BITCH. ARE YOU STUPID? GET OUT OF MY ROOM. I WALKED OUT OF THE ROOM PT CONTINUED TO YELL YOU DUMB BITCH. SECURITY WENT TO GET THE PT A WHEELCHAIR. THIS NURSE ASSISTED THE PT INTO THE WHEELCHAIR AND PT WAS TAKEN OUT BY SECURITY
== END 2020-09-02 10:15 | disposition left against medical advice (07) ==
LOC: ED 10:04
PROVIDERS: Emergency Provider Emergency Medicine; PCP Internal Medicine
DX: R07.9 Chest pain, unspecified (principal); J45.909 Unspecified asthma, uncomplicated; I25.10 Atherosclerotic heart disease of native coronary artery without angina pectoris; K21.9 Gastro-esophageal reflux disease without esophagitis; I10 Essential (primary) hypertension; Z87.891 Personal history of nicotine dependence; Z79.84 Long term (current) use of oral hypoglycemic drugs; Z79.899 Other long term (current) drug therapy
CPT/HCPCS: 93005; 99285

== ENCOUNTER 2020-09-10 21:20 | Emergency (ER) | payer MEDICARE, MEDICAID, SELFPAY ==
[2020-09-02 09:04] VITALS: BMI 51.3
[2020-09-10 21:21] VITALS: BP 126/66; PULSE 105; RESP 20; TEMP 36.9; O2SAT 94; BMI 47.5
--- NOTE | 2020-09-10 21:42 | EDS_ITS ---
HPI History of Present Illness Chief Complaint: Nausea/Vomiting Informant: patient Onset/Context/Timing Onset: Today Current Severity: Mild Maximum Severity: Mild Narrative Narrative: 64-year-old female with a past medical history of diabetes and prior stroke. She has had a prior cholecystectomy and bilateral knee replacements. States her primary care physician recently diagnosed with a UTI and started on Augmentin. She started taking the Augmentin antibiotic today and after taking it twice after each time she had nausea and vomiting. She is also developed s ome mild diarrhea. She denies any fever or chills. Prior similar symptoms: Yes Recent Illness/Hospitalization: No PFSH PFSH Medical History Anxiety Asthma Chronic pain Coronary artery disease Depression Depression Former smoker GERD (gastroesophageal reflux disease) Hypertension Irregular heart beat Migraines On home oxygen therapy PTSD (post-traumatic stress disorder) Seizures Stroke/cerebrovascular accident Home Medications albuterol sulfate 2 puff INHALATION Q6H PRN PRN 02/20/18 [History Last Taken 06/21/19 18:00] prazosin 4 mg PO QHS 03/13/19 [History Last Taken 06/19/19] calcium carbonate-vitamin D3 1 ea PO DAILY 06/13/19 [History Last Taken 06/19/19] metoprolol succinate 25 mg PO DAILY 07/08/19 [History Last Taken 07/21/19] divalproex 250 mg PO BIDCM 11/15/19 [History Last Taken Unknown] topiramate 200 mg PO BID 11/15/19 [History Last Taken Unknown] duloxetine 30 mg PO DAILY 05/27/20 [History Last Taken Unknown] lurasidone 1 tab PO DAILY 05/27/20 [History Last Taken Unknown] pantoprazole 40 mg PO DAILY 05/27/20 [History Last Taken Unknown] prednisone 40 mg PO DAILY #10 tab 05/27/20 [Rx Last Taken Unknown] metformin 500 mg PO DAILY 09/02/20 [History Last Taken Unknown] amoxicillin-pot clavulanate 1 tab PO BID 09/10/20 [History Last Taken Unknown] ondansetron 4 mg PO Q8H #10 tab 09/11/20 [Rx Last Taken Unknown] Allergy/AdvReac Type Severity Reaction Status Date / Time sulfamethoxazole AdvReac Vomiting Verified 09/10/20 22:34 [From Bactrim] sumatriptan [From Imitrex] AdvReac Vomiting Verified 09/10/20 21:24 sumatriptan succinate AdvReac Vomiting Verified 09/10/20 21:24 [From Imitrex] trimethoprim [From Bactrim] AdvReac Vomiting Verified 09/10/20 22:34 BEE STING Allergy Anaphylaxis Uncoded 09/10/20 21:24 PAPER TAPE AdvReac Rash Uncoded 09/10/20 21:24 Surgical History H/O hand surgery H/O knee surgery History of cholecystectomy History of left heart catheterization (06/23/19) Social History Smoking Status: Former smoker ROS ROS ED ROS Narrative Patient denies any fever or chills. No chest pain or shortness of breath. Review of Systems ROS Unobtainable: Denies due to encephalopathy Constitutional Constitutional ED: Denies fever(s) Eyes Eyes: Denies change in vision ENT ENT ED: Denies ear pain or sore throat Cardiovascular Cardiovascular: Denies chest pain or palpitations Respiratory/Chest Respiratory/Chest: Denies cough, dyspnea or sputum Gastrointestinal Gastrointestinal: Reports diarrhea, nausea and vomiting; Denies abdominal pain Genitourinary Genitourinary ED: Denies hematuria Musculoskeletal Musculoskeletal: Denies myalgias Integumentary Denies rash Neurologic Neurologic: Denies headache(s) Psychiatric Psychiatric: Denies depression Endocrine Endocrinology: Denies polyuria Allergic/Immunologic Allergic/Immunologic ED: Denies urticaria EXAM Physical Exam Narrative Exam Narrative: Older female no acute distress. Vital signs stable afebrile. Does not look septic or toxic. Does not look dehydrated. H EENT exam unremarkable. Moist with membranes. Lungs clear to auscultation bilaterally. Heart regular rhythm no murmur. Abdomen soft. Nondistended. No signs of obstruction. She does have a periumbilical hernia that is just proximal to the umbilicus. She states it is always there. It is always sore. There are no peritoneal signs. She has positive bowel sounds. Moving all 4 extremities. Neurologically she is awake and alert. Const Vital Signs: 09/10/20 21:21 09/10/20 23:08 Temperature 98.4 F Temperature Source Temporal Pulse Rate 105 H 92 Respiratory Rate 20 H 16 Blood Pressure 126/66 H 125/81 H Blood Pressure Mean 86 95 Pulse Ox 94 100 Oxygen Delivery Method Room Air Room Air Positive well nourished, well developed and obese General Appearance ED: well developed Nutritional Appearance: obese HEENT Reports moist mucous membranes Negative for trauma or tenderness Eyes PERRL and EOMs intact bilaterally Neck no lymphadenopathy, supple and no JVD General: Negative for tenderness Chest Wall inspection of chest normal Resp normal respiratory effort and clear to auscultation bilaterally Auscultation: Negative for rhonchi, wheezes or diminished lung sounds Cardio regular rate, regular rhythm and no murmurs GI normal to inspection, nondistended, normoactive bowel sounds, non-distended and no masses; Negative for non-tender GI Narrative: Mildly tender over her periumbilical hernia. No signs of obstruction. Auscultation: normoactive bowel sounds Palpation: soft and tender Extremity normal to inspection General Extremety ED: Negative for edema or tenderness General Extremity: Negative for edema Neuro oriented x3 Sensorium / Orientation: alert Motor Exam: strength 5/5 throughout Psych mental status grossly normal Skin no rashes or lesions noted MDM MDM MDM Narrative Medical decision making narrative: Patient with nausea vomiting after taking Augmentin for UTI. She will be treated with IV Zofran and p.o. fluid challenge. Exam otherwise is benign. There is no signs of obstruction. Multiple repeat exams patient is currently resting comfortably. She was treated with Zofran. Small amount of IV morphine. Abdomen is currently benign. The hernia is barely palpable and currently not tender at all. She has no signs of obstruction and no peritoneal signs. She is feeling better. She is comfortable being discharged home with outpatient follow-up. She has appointment with the general surgeon Dr. Chichi Herzog on Saturday. Patient knows return if increasing pain, abdominal bloating or intractable vomiting. She has used Zofran for nausea. Lab Data Lab results narrative: CBC mildly elevated 13.7. Normal hemoglobin. Chemistries unremarkable creatinine 1.15. Normal gap. CT abdomen pelvis shows a hernia. But no signs of obstruction. Awaiting radiologist interpretation. I did review the CAT scan myself. Labs: Laboratory Results - last 24 hr 09/10/20 09/10/20 22:20 22:20 WBC 13.7 H RBC 4.72 Hgb 14.6 Hct 45.1 MCV 95.6 MCH 30.9 MCHC 32.4 RDW Std Deviation 46.0 H RDW Coeff of Lenora 13.0 Plt Count 309 MPV 11.0 Immature Gran % (Auto) 0.400 Neut % (Auto) 78.9 H Lymph % (Auto) 8.4 L [place] % (Auto) 10.5 H Eos % (Auto) 1.3 Baso % (Auto) 0.5 Absolute Neuts (auto) 10.8 H Absolute Lymphs (auto) 1.15 Nucleated RBC % 0 Sodium 140 Potassium 3.9 Chloride 105 Carbon Dioxide 29.0 Anion Gap 6 BUN 18 Creatinine 1.15 H Estim Creat Clear Calc 39.60 Est GFR (MDRD) Af Amer 61 Est GFR (MDRD) Non-Af 51 L BUN/Creatinine Ratio 15.7 Glucose 158 H Calcium 9.2 Discharge Plan Triage Chief Complaint: Nausea/Vomiting ED Provider: Tano Rangel Dx/Rx/DC Orders Clinical Impression: Vomiting, Abdominal hernia Instructions: ED Hernia (Adult), ED Vomiting (Adult) Prescriptions: New ondansetron 4 mg tablet,disintegrating 4 mg PO Q8H Qty: 10 RF: 0 No Action albuterol sulfate 1 INHALER inhaler 2 puff inhalation Q6H PRN PRN (Reason: Shortness Of Breath) RF: 0 prazosin 2.000 capsule 4 mg PO QHS RF: 0 calcium carbonate-vitamin D3 1 EACH tablet 1 ea PO DAILY RF: 0 metoprolol succinate 25 MG tablet extended release 24 hr 25 mg PO DAILY RF: 0 divalproex 250 MG tablet 250 mg PO BIDCM RF: 0 topiramate 200 MG tablet 200 mg PO BID RF: 0 pantoprazole 40 MG tablet 40 mg PO DAILY RF: 0 lurasidone 40 MG tablet 1 tab PO DAILY RF: 0 duloxetine 30 MG capsule,delayed release(DR/EC) 30 mg PO DAILY RF: 0 prednisone 20 MG tablet 40 mg PO DAILY Qty: 10 RF: 0 metformin 500 mg tablet 500 mg PO DAILY RF: 0 amoxicillin-pot clavulanate 875-125 mg tablet 1 tab PO BID RF: 0 Primary Care Provider: Fatoumata Rosen Referrals: Fatoumata Rosen MD [Primary Care Provider] - Chichi Herzog MD [STAFF PHYSICIAN] - Keep Tamera appointment Activity Restrictions/Additional Instructions: Zofran as needed for nausea. Make sure when you are taking your home Augmentin you take it with food on your stomach. Tylenol for pain. Follow-up with Dr. Chichi Herzog on Saturday for your appointment to be evaluated for your hernia. Return if increasing abdominal pain, significant bloating or intractable vomiting. Disposition Disposition: Home, self care
[2020-09-10] MEDS: Ondansetron 4 MG/2 ML Vial IV (22:27)
[2020-09-10] MEDS: Morphine 4 MG/ML Syringe IV (23:03)
--- NOTE | 2020-09-10 23:03 | CT_ITS ---
STUDY: CT ABDOMEN AND PELVIS WITH CONTRAST REASON FOR EXAM: Female, 64 years old. hernia and pain RADIATION DOSAGE (If Supplied By Facility): CTDIvol = ( 18.74 ) mGy, DLP = ( 1272.14 ) mGycm TECHNIQUE: Transaxial images were obtained from the dome of the diaphragm to the symphysis pubis without oral contrast. IV 100mL Isovue-370 was administered. Sagittal and coronal images were reconstructed. Individualized dose optimization techniques were used for this CT. COMPARISON: September 01, 2020. FINDINGS: The visualized lung bases are unremarkable. The visualized portions of the heart are within normal limits. Normal liver. Gallbladder not visualized compatible with cholecystectomy. Normal spleen. Normal pancreas. Normal bilateral adrenal glands. Normal right kidney. Normal left kidney. Normal visualized stomach. Minimally prominent loops of small bowel in the left abdomen some measuring up to 2.1 cm in transverse dimension. Normal colon. The appendix is visualized and appears normal. Normal abdominal aorta. Normal inferior vena cava. Normal retroperitoneum. No intra-abdominal free air. Normal urinary bladder. The uterus is grossly normal. No adnexal mass is seen. There is a small umbilical hernia containing fat. Total right hip arthroplasty in normal alignment. CT/Abdomen/Pelvis W IV Cont ONLY IMPRESSION: Nonspecific appearance of loops of small bowel in the left abdomen which could represent mild enteritis or early adynamic ileus. Small umbilical hernia containing fat unchanged. Electronically Signed: Igor Tovar MD at 1:08 EDT , Service support ,
[2020-09-10 23:08] VITALS: BP 125/81; PULSE 92; RESP 16; O2SAT 100
[2020-09-10 23:24] LABS: Absolute Lymphocyte Count 1.15 X10^3/uL (0.83-4.51); Absolute Neutrophil Count 10.8 X10^3/uL (2.0-7.7); Basophil# 0.07 X10^3/uL; Basophil% 0.5 % (0-1); Eosinophil# 0.18 X10^3/uL; Eosinophils% 1.3 % (0-5); Hematocrit 45.1 % (37-47); Hemoglobin 14.6 g/dL (12.0-15.0); Lymphocyte # 1.15 X10^3/ul (0.83-4.51); Lymphocyte % 8.4 % (19-41); Mean Corp Hgb Conc 32.4 g/dL (32-36); Mean Corpuscular Hgb 30.9 pg (27.0-32.0); Mean Corpuscular Volume 95.6 fL (81-99); Monocyte# 1.44 X10^3/uL; Monocyte% 10.5 % (0-10); NRBC Flagged by Analyzer 0 % (0-5); Neutrophil # 10.83 X10^3/uL (2.7-7.7); Neutrophil % 78.9 % (47-70); Platelet Count 309 K/mm3 (150-450); Red Blood Count 4.72 M/mm3 (4.2-5.4); White Blood Count 13.7 K/mm3 (4.4-11.0)
[2020-09-10 23:31] LABS: Anion Gap 6 (5-15); BUN 18 mg/dL (7-18); BUN/Creat Ratio 15.7 RATIO (10-20); Calcium,Total 9.2 mg/dL (8.5-10.1); Chloride 105 mmol/L (98-107); Creatinine, Serum 1.15 mg/dL (0.55-1.02); EST Glomerular Filtration Rate 51 mL/min (>60); Est Glom Filt Rate - Afr Amer 61 mL/min (>60); Glucose 158 mg/dL (74-106); Potassium 3.9 mmol/L (3.5-5.1); Sodium Level 140 mmol/L (136-145)
[2020-09-11 01:29] VITALS: BP 118/80; PULSE 76; RESP 16
== END 2020-09-11 01:29 | disposition home or self-care (01) ==
PROVIDERS: Emergency Provider Emergency Medicine; PCP Internal Medicine
DX: R11.2 Nausea with vomiting, unspecified (principal); K42.9 Umbilical hernia without obstruction or gangrene; R19.7 Diarrhea, unspecified; N39.0 Urinary tract infection, site not specified; Z79.2 Long term (current) use of antibiotics; E66.9 Obesity, unspecified; Z68.42 Body mass index [BMI] 45.0-49.9, adult; I10 Essential (primary) hypertension; E11.9 Type 2 diabetes mellitus without complications; F32.9 Major depressive disorder, single episode, unspecified; F41.9 Anxiety disorder, unspecified; F43.10 Post-traumatic stress disorder, unspecified; G43.909 Migraine, unspecified, not intractable, without status migrainosus; G89.29 Other chronic pain; I25.10 Atherosclerotic heart disease of native coronary artery without angina pectoris; J45.909 Unspecified asthma, uncomplicated; K21.9 Gastro-esophageal reflux disease without esophagitis; Z86.73 Personal history of transient ischemic attack (TIA), and cerebral infarction without residual deficits; Z90.49 Acquired absence of other specified parts of digestive tract; Z79.84 Long term (current) use of oral hypoglycemic drugs; Z79.899 Other long term (current) drug therapy; Z87.891 Personal history of nicotine dependence
CPT/HCPCS: 74177; 80048; 85025; 96374; 96375; 99284; Q9967; A4216; J2405

== ENCOUNTER 2020-09-19 01:54 | Observation (INO) | payer MEDICARE, MEDICAID, SELFPAY ==
[2020-09-19] VITALS (12 sets, daily range): BP systolic 107–126; BP diastolic 69–85; PULSE 59–97; RESP 16–18; TEMP 36.2–36.9; O2SAT 93–99; BMI 46.7; BMI 46.3
--- NOTE | 2020-09-19 02:16 | EKG12_ITS ---
Test Reason : CP Blood Pressure : / mmHG Vent. Rate : 067 BPM Atrial Rate : 067 BPM P-R Int : 208 ms QRS Dur : 082 ms QT Int : 432 ms P-R-T Axes : 032 -15 003 degrees QTc Int : 456 ms Normal sinus rhythm Moderate voltage criteria for LVH, may be normal variant Inferior infarct , age undetermined Abnormal ECG Confirmed by JANI ROJAS, NAIDA ([id number]), photographic editor HERMAN DOWNS ([id number]) on 09/20/2020 9:46:36 AM Referred By: XANDER Confirmed By:NADIA GUNTER MD
--- NOTE | 2020-09-19 02:19 | ED.VIS.CHEST ---
HPI History of Present Illness Chief Complaint: Chest Pain Narrative Narrative: 64-year-old female presenting with chest pain which has resolved. She states it was like pressure on her chest. She states it lasted about 30 minutes from about 130 to 2:00 AM. She states she was nauseous and vomited x1. Patient states that her pain has resolved. She does have pain in her abdomen where she has a known umbilical hernia. Patient also admits to constipation for the last 2 days. She has not taken any medication to help her have a bowel movement but she has been trying to drink juice. She recently had a CT scan performed. Patient denies fever, chills, cough. [facility] Medical History Anxiety Asthma Chronic pain Coronary artery disease Depression Depression Former smoker GERD (gastroesophageal reflux disease) Hypertension Irregular heart beat Migraines On home oxygen therapy PTSD (post-traumatic stress disorder) Seizures Stroke/cerebrovascular accident Home Medications albuterol sulfate 2 puff INHALATION Q6H PRN PRN 02/20/18 [History Last Taken 06/21/19 18:00] prazosin 4 mg PO QHS 03/13/19 [History Last Taken 06/19/19] calcium carbonate-vitamin D3 1 ea PO DAILY 06/13/19 [History Last Taken 06/19/19] metoprolol succinate 25 mg PO DAILY 07/08/19 [History Last Taken 07/21/19] divalproex 250 mg PO BIDCM 11/15/19 [History Last Taken Unknown] topiramate 200 mg PO BID 11/15/19 [History Last Taken Unknown] duloxetine 30 mg PO DAILY 05/27/20 [History Last Taken Unknown] lurasidone 1 tab PO DAILY 05/27/20 [History Last Taken Unknown] pantoprazole 40 mg PO DAILY 05/27/20 [History Last Taken Unknown] prednisone 40 mg PO DAILY #10 tab 05/27/20 [Rx Last Taken Unknown] metformin 500 mg PO DAILY 09/02/20 [History Last Taken Unknown] amoxicillin-pot clavulanate 1 tab PO BID 09/10/20 [History Last Taken Unknown] ondansetron 4 mg PO Q8H #10 tab 09/11/20 [Rx Last Taken Unknown] ondansetron 4 mg PO Q8H PRN #10 tab 09/11/20 [Rx Last Taken Unknown] Allergy/AdvReac Type Severity Reaction Status Date / Time amoxicillin [From Augmentin] AdvReac Hives Verified 09/19/20 02:01 clavulanic acid AdvReac Hives Verified 09/19/20 02:01 [From Augmentin] sulfamethoxazole AdvReac Vomiting Verified 09/10/20 22:34 [From Bactrim] sumatriptan [From Imitrex] AdvReac Vomiting Verified 09/10/20 21:24 sumatriptan succinate AdvReac Vomiting Verified 09/10/20 21:24 [From Imitrex] trimethoprim [From Bactrim] AdvReac Vomiting Verified 09/10/20 22:34 BEE STING Allergy Anaphylaxis Uncoded 09/10/20 21:24 PAPER TAPE AdvReac Rash Uncoded 09/10/20 21:24 Family History (Updated 09/19/20 @ 04:[address] Anita Keith MD) Mother Hypertension Father Hypertension Surgical History H/O hand surgery H/O knee surgery History of cholecystectomy History of left heart catheterization (06/23/19) Social History (Updated 09/19/20 @ 04:[address] Anita Keith MD) household members: none Smoking Status: Former smoker alcohol intake: never substance use type: does not use ROS ROS ED Constitutional Constitutional ED: Denies chills, fever(s) or sweats Eyes Eyes: Denies blurry vision or change in vision ENT ENT ED: Denies ear pain, rhinorrhea or sore throat Cardiovascular Cardiovascular: Reports chest pain; Denies palpitations or racing heartbeat Respiratory/Chest Respiratory/Chest: Denies cough, dyspnea or sputum Gastrointestinal Gastrointestinal: Reports abdominal pain, constipation, nausea and vomiting; Denies diarrhea Genitourinary Genitourinary ED: Denies dysuria, hematuria or urinary frequency Musculoskeletal Musculoskeletal: Denies arthralgias, myalgias or neck pain Integumentary Denies abscess, Abrasions or rash Neurologic Neurologic: Denies headache(s), paresthesias or weakness Psychiatric Psychiatric: Denies anxiety, depression, suicidal ideation or suicidal thoughts Endocrine Endocrinology: Denies polydipsia or polyuria EXAM Physical Exam Const Vital Signs: 09/19/20 01:56 09/19/20 01:58 09/19/20 02:16 Temperature 97.2 F L Temperature Source Temporal Pulse Rate 97 Respiratory Rate 16 Respiratory Effort Normal Blood Pressure 125/85 H Blood Pressure Mean 98 Pulse Ox 97 Oxygen Delivery Method Room Air Room Air 09/19/20 04:41 09/19/20 04:42 Temperature 97.9 F Temperature Source Temporal Pulse Rate 63 70 Respiratory Rate 16 Respiratory Effort Blood Pressure 107/69 Blood Pressure Mean 81 Pulse Ox 96 Oxygen Delivery Method Room Air Positive obese and no apparent distress General Appearance ED: Negative for pallor Nutritional Appearance: obese HEENT Reports normocephalic, head/scalp atraumatic and moist mucous membranes normocephalic and atraumatic Eyes PERRL and EOMs intact bilaterally Neck no lymphadenopathy and supple Chest Wall inspection of chest normal and palpation of chest normal Resp normal respiratory effort and clear to auscultation bilaterally Auscultation: Negative for rales, rhonchi or wheezes Cardio regular rate and regular rhythm GI normal to inspection, nondistended, normoactive bowel sounds and non-distended GI Narrative: Generalized tenderness to palpation. Auscultation: normoactive bowel sounds Palpation: soft Narrative: Deferred Extremity normal to inspection General Extremety ED: Yes edema and tenderness General Extremity: edema Neuro oriented x3 and CN's II-XII intact bilaterally Sensorium / Orientation: alert Motor Exam: strength 5/5 throughout Psych mental status grossly normal Attitude: No agitated Skin no rashes or lesions noted and no wounds General Skin Exam: Negative for jaundice or pallor Heart Score History: Moderately Suspicious ECG: Normal Age: >45 - <65 years Risk Factors: >/= 3 Risk Factors or History of CAD Score: 4 MDM MDM MDM Narrative Medical decision making narrative: 63-year-old female presenting for chest pain. She states she had chest pressure which lasted about 30 minutes prior to arrival. She states she took 2 nitroglycerin and her chest pain improved. Patient also also complaining of abdominal pain and constipation. She states she has not had a bowel movement in 2 days. She states she has pain near her hernia. Patient had EKG performed on arrival which is sinus rhythm at 67 bpm without signs of ischemic change as interpreted by myself and has not had any significant changes since 02 Sep 2020. Chest x-ray is interpreted by myself shows no acute cardiopulmonary process. The radiologist does agree. Lab work shows white blood cell count 7.2 hemoglobin 14.7, hematocrit 44.5, platelets 285. Calcium was slightly low at 3.2 but otherwise her electrolytes are normal. Patient has a creatinine of 1.03 D-dimer is negative at 0.45. LFTs and lipase are negative. Patient's heart score is 4. CT of the abdomen pelvis with IV contrast shows no obstruction. There is a little inflammation around her umbilical hernia but otherwise her abdomen is stable. Patient was discussed with the hospitalist. She will be admitted for chest pain evaluation. Impression: 1. Constipation 2. Chest pain Lab Data Labs: Laboratory Results - last 24 hr 09/19/20 09/19/20 09/19/20 02:10 02:10 02:10 WBC 7.2 RBC 4.75 Hgb 14.7 Hct 44.5 MCV 93.7 MCH 30.9 MCHC 33.0 RDW Std Deviation 43.7 RDW Coeff of Lenora 12.6 Plt Count 285 MPV 10.6 Immature Gran % (Auto) 0.100 Neut % (Auto) 43.2 L Lymph % (Auto) 38.6 [place] % (Auto) 11.1 H Eos % (Auto) 6.0 H Baso % (Auto) 1.0 Absolute Neuts (auto) 3.1 Absolute Lymphs (auto) 2.77 Nucleated RBC % 0 D-Dimer Quant (PE/DVT) Sodium 140 Potassium 3.2 L Chloride 103 Carbon Dioxide 29.0 Anion Gap 8 BUN 14 Creatinine 1.03 H Estim Creat Clear Calc 44.22 Est GFR (MDRD) Af Amer 69 Est GFR (MDRD) Non-Af 57 L BUN/Creatinine Ratio 13.6 Glucose 133 H Calcium 8.7 Magnesium Total Bilirubin 0.40 Direct Bilirubin 0.13 AST 17 ALT 20 Alkaline Phosphatase 75 Troponin I < 0.015 Total Protein 7.6 Albumin 3.4 Globulin 4.2 Lipase 09/19/20 09/19/20 09/19/20 02:10 02:10 02:10 WBC RBC Hgb Hct MCV MCH MCHC RDW Std Deviation RDW Coeff of Lenora Plt Count MPV Immature Gran % (Auto) Neut % (Auto) Lymph % (Auto) [place] % (Auto) Eos % (Auto) Baso % (Auto) Absolute Neuts (auto) Absolute Lymphs (auto) Nucleated RBC % D-Dimer Quant (PE/DVT) 0.45 Sodium Potassium Chloride Carbon Dioxide Anion Gap BUN Creatinine Estim Creat Clear Calc Est GFR (MDRD) Af Amer Est GFR (MDRD) Non-Af BUN/Creatinine Ratio Glucose Calcium Magnesium 1.9 Total Bilirubin Direct Bilirubin AST ALT Alkaline Phosphatase Troponin I Total Protein Albumin Globulin Lipase 161 Radiography Diagnostic Testing: Radiology Impression Chest X-Ray 09/19/20 02:20 IMPRESSION: Degenerative changes, as described above. No demonstrated acute cardiopulmonary process. Electronically Signed: Britni Sheikh MD at 2:40 EDT Tel , Service support , Abdomen/Pelvis CT 09/19/20 03:10 IMPRESSION: Constipation. No appendicitis. No hydronephrosis. Stable umbilical hernia as detailed above with minimal inflammatory change. Minimal diverticulosis no diverticulitis. Nonvisualization of the gallbladder which is likely been surgically removed. Electronically Signed: Britni Sheikh MD at 4:09 EDT Tel , Service support , Discharge Plan Disposition Disposition: Acute Care Hospital [facility] Discharge Date/Time: 09/19/20 05:04
--- NOTE | 2020-09-19 02:20 | RAD_ITS ---
STUDY: X-RAY CHEST REASON FOR EXAM: Female, 64 years old. Chest pain TECHNIQUE: Single AP portable view of the chest. COMPARISON: May 27, 2020 chest x-ray FINDINGS: The lungs are clear and expanded. There is no demonstrated pleural abnormality. Normal size heart. Normal mediastinum and ita. Normal visualized pulmonary arteries. There is atherosclerotic tortuosity of the aortic arch and descending thoracic aorta. There are diffuse degenerative changes of the visualized thoracic spine. Normal visualized ribs, clavicles, and shoulders. There is no demonstrated abnormality of the visualized soft tissue structures of the upper abdomen. RAD/Chest 1 View (Portable) IMPRESSION: Degenerative changes, as described above. No demonstrated acute cardiopulmonary process. Electronically Signed: Britni Sheikh MD at 2:40 EDT Tel , Service support ,
[2020-09-19 02:22] LABS: Absolute Lymphocyte Count 2.77 X10^3/uL (0.83-4.51); Absolute Neutrophil Count 3.1 X10^3/uL (2.0-7.7); Basophil# 0.07 X10^3/uL; Eosinophil# 0.43 X10^3/uL; Hematocrit 44.5 % (37-47); Hemoglobin 14.7 g/dL (12.0-15.0); Lymphocyte # 2.77 X10^3/ul (0.83-4.51); Lymphocyte % 38.6 % (19-41); Mean Corpuscular Hgb 30.9 pg (27.0-32.0); Mean Corpuscular Volume 93.7 fL (81-99); Mean Platelet Vol. 10.6 fl (6.2-12.0); Monocyte% 11.1 % (0-10); NRBC Flagged by Analyzer 0 % (0-5); Neutrophil % 43.2 % (47-70); Platelet Count 285 K/mm3 (150-450); RBC Distribution Width CV 12.6 % (11.6-14.6); RBC Distribution Width SD 43.7 fl (35.1-43.9); Red Blood Count 4.75 M/mm3 (4.2-5.4); White Blood Count 7.2 K/mm3 (4.4-11.0)
[2020-09-19 02:36] LABS: Lipase 161 U/L (73-393)
[2020-09-19 02:38] LABS: Anion Gap 8 (5-15); BUN 14 mg/dL (7-18); BUN/Creat Ratio 13.6 RATIO (10-20); Calcium,Total 8.7 mg/dL (8.5-10.1); Chloride 103 mmol/L (98-107); Creatinine, Serum 1.03 mg/dL (0.55-1.02); EST Glomerular Filtration Rate 57 mL/min (>60); Est Glom Filt Rate - Afr Amer 69 mL/min (>60); Estimated Creatinine Clearance 44.22 ml/min; Glucose 133 mg/dL (74-106); Potassium 3.2 mmol/L (3.5-5.1); Sodium Level 140 mmol/L (136-145)
[2020-09-19 02:45] LABS: AST(SGOT) 17 U/L (15-37); Alanine Aminotransfer ALT/SGPT 20 U/L (13-56); Albumin, Serum 3.4 g/dL (3.2-5.0); Alkaline Phosphatase 75 U/L (45-117); Bilirubin, Direct 0.13 mg/dL (0.00-0.30); Globulin 4.2 g/dL (2.2-4.2); Protein, Total 7.6 g/dL (6.4-8.2)
[2020-09-19] MEDS: Ondansetron 4 MG/2 ML Vial IV (03:00)
[2020-09-19] MEDS: Morphine 4 MG/ML Syringe IV (03:00)
[2020-09-19 03:05] LABS: D-Dimer Quantitative (DVT/PE) 0.45 FEU/ug/m (0.27-0.49)
--- NOTE | 2020-09-19 03:10 | CT_ITS ---
STUDY: CT ABDOMEN AND PELVIS WITH CONTRAST REASON FOR EXAM: Female, 64 years old. Abdominal pain RADIATION DOSAGE (If Supplied By Facility): CTDIvol = ( 21.83 ) mGy, DLP = ( 1692.25 ) mGycm TECHNIQUE: Transaxial images were obtained from the dome of the diaphragm to the symphysis pubis without oral contrast. IV 100mL Isovue-300 was administered. Sagittal and coronal images were reconstructed. Individualized dose optimization techniques were used for this CT. COMPARISON: September 10, 2020, CT scan abdomen and pelvis November 24, 2014 CT abdomen and pelvis FINDINGS: The visualized lung bases are unremarkable. The visualized portions of the heart are within normal limits. Normal liver. There is non-visualization of the gallbladder, which may be secondary to either contraction or a prior cholecystectomy. Normal spleen. Normal pancreas. Normal bilateral adrenal glands. Normal right kidney. Normal left kidney. There is stable phleboliths within the pelvis. Unchanged since November 24, 2014. Normal visualized stomach. Normal small intestine. There is moderate stool in the colon. There is minimal diverticulosis without diverticulitis. The appendix is visualized and appears normal. Normal abdominal aorta. Normal inferior vena cava. Normal retroperitoneum. Normal urinary bladder. Normal visualized uterus. There is a persistent midline fatty hernia which contains mild edema both on the extraperitoneal and intraperitoneal side IV herniation. The opening measures approximately 5 mm the herniated fat measures 2.8 x 2.7 cm. This is stable when compared to the recent prior study July 12, 2019. On the prior study November 24, 2014 findings are also similar. There are diffuse degenerative changes of the visualized lumbar spine. CT/Abdomen/Pelvis W IV Cont ONLY IMPRESSION: Constipation. No appendicitis. No hydronephrosis. Stable umbilical hernia as detailed above with minimal inflammatory change. Minimal diverticulosis no diverticulitis. Nonvisualization of the gallbladder which is likely been surgically removed. Electronically Signed: Britni Sheikh MD at 4:09 EDT Tel , Service support ,
--- NOTE | 2020-09-19 03:42 | ED.RN ---
PATIENT HAD CALLED OUT AND ASKED TO SPEAK WITH SOMEONE. WHEN I WENT INTO THE PATIENTS ROOM SHE ASKED IF I WAS A AIDE, AND I REPLIED WITH YES. SHE THEN TOLD ME THAT A NURSE HAD STOLEN DRUGS AND SHE DIDN'T KNOW WHO TO TELL, I HAD BOUGHT IT TO PREET AND ANSHU BECAUSE THEY BOTH WAS IN THE ROOM. THE NURSE THEN TOLD ME THAT IT WAS A MEDICATION PUSHER FOR A IV THAT SHE PUT IN HER POCKET AND THEN PUT THE ACTUAL DRUGS IN THE WASTE CONTAINER ON THE WALL.PATIENT THEN WENT TO RADIOLOGY AND TOLD THEM THE STORY WELL.
--- NOTE | 2020-09-19 03:50 | ED.RN ---
NOTIFIED BY ELADIA SIERRA THAT PT EXPRESSED THAT SHE DID NOT GET HER MORPHINE AND SEEN NURSE PUT IT IN HER POCKET. MEDICATION WAS ADMINISTERED WITH ALBERTO OVIEDO IN THE ROOM AT THE SAME TIME. MEDICATION WAS ADMINISTERED IN IV IN R ARM, MEDICATION VIAL WAS TAKEN FROM CARPUJET, PLACED IN SHARPS CONTAINER AND CARPUJET WAS PLACED IN POCKET. PREET AND THIS NURSE WENT IN TO ROOM AND EXPLAINED PROCEDURE TO PATIENT. PATIENT STATED THAT SHE DID NOT ACCUSE ANYONE OF NOT GIVING HER THE NARCOTIC. PT MADE AWARE THAT SHE DID GET HER MEDICATION PRESCRIBED. PATIENT WAS APOLOGETIC.
--- NOTE | 2020-09-19 03:54 | ED.RN ---
PATIENT HAD PUT HER CALL LIGHT ON TO TALK TO SOMEONE. I WENT INTO THE PATIENTS ROOM AND SHE ASKED IF I WAS A AIDE, I STATED YES. THE PATIENT THEN TOLD ME SHE SAW A NURSE STEALING DRUGS. SHE STATED THAT SHE PUT THE DRUGS IN HER POCKET. SHE SAID SHE DID NOT KNOW WHO TO TELL. I WENT TO GO NOTIFY PREET AND ANSHU ABOUT THE SITUATION AND WHAT WAS SAID.
--- NOTE | 2020-09-19 04:23 | PCM.HP.STD ---
HPI - General General Date of Admission: 09/19/20 Chief Complaint: Chest pain, constipation. HPI Narrative The patient is a 64 y/o F w/ PMHx: Diabetes mellitus type II, CAD (cardiac catheterization 2020 with non-obstructive disease), Morbid Obesity, HTN, HLD, Tobacco use, Anxiety and Depression/Schizophrenia, Chronic COPD, Seizure disorder, Hx NSVT, Hx CVA, Migraines who presents to the [facility] ED on 09/19/20 with history of onset chest discomfort, midsternal in location described as a pressure, ongoing for ~ 30 minutes prior presentation with episode of nausea as well as emesis without dyspnea or diaphoresis associated with self administration nitroglycerin x2 with improvement, initially rated 8 out of 10 in severity, 4-10 upon evaluation. Patient also complaining of generalized abdominal discomfort and cramping with no recent bowel movement now x3 days with ongoing flatus but sensation of mild bloating. Work-up in the ED included T 97.2, HR 97, BP 125/85, RR 16, 97% on RA, CBC with WC 7.2, hemoglobin 14.7, platelet 285 without marked shift, D-dimer 0.45, CMP with potassium 3.2, BUN/creatinine 14/1.03, glucose 133, unremarkable hepatic profile, lipase 161, troponin less than 0.015, chest x-ray with no acute cardiopulmonary findings, EKG with sinus rhythm with no acute evidence of ischemia, CT A/P w/ evidence of constipation with no acute intra-abdominal findings otherwise. [facility] Medical History Anxiety Asthma Chronic pain Coronary artery disease Depression Depression Former smoker GERD (gastroesophageal reflux disease) Hypertension Irregular heart beat Migraines On home oxygen therapy PTSD (post-traumatic stress disorder) Seizures Stroke/cerebrovascular accident Home Medications albuterol sulfate 2 puff INHALATION Q6H PRN PRN 02/20/18 [History Last Taken 06/21/19 18:00] prazosin 4 mg PO QHS 03/13/19 [History Last Taken 06/19/19] calcium carbonate-vitamin D3 1 ea PO DAILY 06/13/19 [History Last Taken 06/19/19] metoprolol succinate 25 mg PO DAILY 07/08/19 [History Last Taken 07/21/19] divalproex 250 mg PO BIDCM 11/15/19 [History Last Taken Unknown] topiramate 200 mg PO BID 11/15/19 [History Last Taken Unknown] duloxetine 30 mg PO DAILY 05/27/20 [History Last Taken Unknown] lurasidone 1 tab PO DAILY 05/27/20 [History Last Taken Unknown] pantoprazole 40 mg PO DAILY 05/27/20 [History Last Taken Unknown] prednisone 40 mg PO DAILY #10 tab 05/27/20 [Rx Last Taken Unknown] metformin 500 mg PO DAILY 09/02/20 [History Last Taken Unknown] amoxicillin-pot clavulanate 1 tab PO BID 09/10/20 [History Last Taken Unknown] ondansetron 4 mg PO Q8H #10 tab 09/11/20 [Rx Last Taken Unknown] ondansetron 4 mg PO Q8H PRN #10 tab 09/11/20 [Rx Last Taken Unknown] Allergy/AdvReac Type Severity Reaction Status Date / Time amoxicillin [From Augmentin] AdvReac Hives Verified 09/19/20 02:01 clavulanic acid AdvReac Hives Verified 09/19/20 02:01 [From Augmentin] sulfamethoxazole AdvReac Vomiting Verified 09/10/20 22:34 [From Bactrim] sumatriptan [From Imitrex] AdvReac Vomiting Verified 09/10/20 21:24 sumatriptan succinate AdvReac Vomiting Verified 09/10/20 21:24 [From Imitrex] trimethoprim [From Bactrim] AdvReac Vomiting Verified 09/10/20 22:34 BEE STING Allergy Anaphylaxis Uncoded 09/10/20 21:24 PAPER TAPE AdvReac Rash Uncoded 09/10/20 21:24 Family History (Updated 09/19/20 @ 04:[address] Anita Keith MD) Mother Hypertension Father Hypertension Surgical History H/O hand surgery H/O knee surgery History of cholecystectomy History of left heart catheterization (06/23/19) Social History (Updated 09/19/20 @ 04:[address] Anita Keith MD) household members: none Smoking Status: Former smoker alcohol intake: never substance use type: does not use ROS ROS Narrative Admission Review of Systems: CONSTITUTIONAL: No weight loss, fever, chills, + weakness or fatigue. HEENT: Eyes: No visual loss, blurred vision, double vision or yellow sclerae. Ears, Nose, Throat: No hearing loss, sneezing, congestion, runny nose or sore throat. SKIN: No rash or itching, lesions, wounds. CARDIOVASCULAR: + chest pain, chest pressure or chest discomfort, No palpitations, edema, orthopnea, syncopal events. RESPIRATORY: No shortness of breath, cough or sputum, wheezing, hemoptysis. GASTROINTESTINAL: + anorexia, nausea, vomiting, abdominal pain, constipation, No diarrhea, melena, BRBPR. GENITOURINARY: No dysuria, frequency, urgency or retention. NEUROLOGICAL: No headache, dizziness, syncope, paralysis, ataxia, numbness or tingling in the extremities, focal weakness, change in bowel or bladder control, seizure. MUSCULOSKELETAL: + muscle, back pain, joint pain or stiffness. HEMATOLOGIC: No anemia, bleeding or bruising. LYMPHATICS: No enlarged nodes. No history of splenectomy. PSYCHIATRIC: + history of depression or anxiety. ENDOCRINOLOGIC: No reports of sweating, cold or heat intolerance. No polyuria or polydipsia. ALLERGIES: No history of asthma, hives, eczema or rhinitis. Vital Signs Vital Signs Vital Signs: 09/19/20 01:56 09/19/20 01:58 09/19/20 02:16 Temperature 97.2 F L Temperature Source Temporal Pulse Rate 97 Respiratory Rate 16 Respiratory Effort Normal Blood Pressure 125/85 H Blood Pressure Mean 98 Pulse Ox 97 Oxygen Delivery Method Room Air Room Air Physical Exam Narrative Physical Examination: General: awake, alert, oriented x 3 and cooperative, laying in the ED bed, mildly fatigued otherwise no obvious distress. Skin: normal color, turgor, no icterus, cyanosis. HEENT: AT/NC, EOMI, PERRLA, MMM, no carotid bruits or JVD noted; however, thickened neck makes examination difficult. Lungs: CTA bilaterally, moderate effort, mild decrease BL bases, no rales, ronchi or wheezing. Heart: regular rate and rhythm; no gallop, rub audible. Abdomen: soft, morbidly obese, NTTP, difficult to assess distention given habitus but mildly tympanic, distant normal BS, unable to discern HSM secondary to morbidly obese habitus. Extremities: no cyanosis, clubbing, or edema. Neurological: patient awake, alert, oriented as noted, cognitive function intact; pupils equally reactive to light and accommodation, cranial nerves II-XII grossly normal, moving all 4 extremities, no focal deficits, strength mildly global decrease secondary to acute complaints. Psychiatric: affect appears mildly fatigued otherwise normal, no acute evidence of depressive or anxiety feelings. Lab / Micro Data Result Diagrams: 09/19/20 02:10 09/19/20 02:10 Labs: Laboratory Results - last 24 hr 09/19/20 09/19/20 09/19/20 02:10 02:10 02:10 WBC 7.2 RBC 4.75 Hgb 14.7 Hct 44.5 MCV 93.7 MCH 30.9 MCHC 33.0 RDW Std Deviation 43.7 RDW Coeff of Lenora 12.6 Plt Count 285 MPV 10.6 Immature Gran % (Auto) 0.100 Neut % (Auto) 43.2 L Lymph % (Auto) 38.6 [place] % (Auto) 11.1 H Eos % (Auto) 6.0 H Baso % (Auto) 1.0 Absolute Neuts (auto) 3.1 Absolute Lymphs (auto) 2.77 Nucleated RBC % 0 D-Dimer Quant (PE/DVT) Sodium 140 Potassium 3.2 L Chloride 103 Carbon Dioxide 29.0 Anion Gap 8 BUN 14 Creatinine 1.03 H Estim Creat Clear Calc 44.22 Est GFR (MDRD) Af Amer 69 Est GFR (MDRD) Non-Af 57 L BUN/Creatinine Ratio 13.6 Glucose 133 H Calcium 8.7 Total Bilirubin 0.40 Direct Bilirubin 0.13 AST 17 ALT 20 Alkaline Phosphatase 75 Troponin I < 0.015 Total Protein 7.6 Albumin 3.4 Globulin 4.2 Lipase 09/19/20 09/19/20 02:10 02:10 WBC RBC Hgb Hct MCV MCH MCHC RDW Std Deviation RDW Coeff of Lenora Plt Count MPV Immature Gran % (Auto) Neut % (Auto) Lymph % (Auto) [place] % (Auto) Eos % (Auto) Baso % (Auto) Absolute Neuts (auto) Absolute Lymphs (auto) Nucleated RBC % D-Dimer Quant (PE/DVT) 0.45 Sodium Potassium Chloride Carbon Dioxide Anion Gap BUN Creatinine Estim Creat Clear Calc Est GFR (MDRD) Af Amer Est GFR (MDRD) Non-Af BUN/Creatinine Ratio Glucose Calcium Total Bilirubin Direct Bilirubin AST ALT Alkaline Phosphatase Troponin I Total Protein Albumin Globulin Lipase 161 Radiology Impression Chest X-Ray 09/19/20 02:20 IMPRESSION: Degenerative changes, as described above. No demonstrated acute cardiopulmonary process. Electronically Signed: Britni Sheikh MD at 2:40 EDT Tel , Service support , Abdomen/Pelvis CT 09/19/20 03:10 IMPRESSION: Constipation. No appendicitis. No hydronephrosis. Stable umbilical hernia as detailed above with minimal inflammatory change. Minimal diverticulosis no diverticulitis. Nonvisualization of the gallbladder which is likely been surgically removed. Electronically Signed: Britni Sheikh MD at 4:09 EDT Tel , Service support , Assessment & Plan Assessment/Plan (1) Chest pain: QUALIFIERS: Chest pain type: unspecified Qualified Code(s): R07.9 - Chest pain, unspecified (2) Constipation: QUALIFIERS: Constipation type: unspecified constipation type Qualified Code(s): K59.00 - Constipation, unspecified PLAN: The patient is a 64 y/o F w/ PMHx: Diabetes mellitus type II, CAD (cardiac catheterization 2019 with non-obstructive disease), Morbid Obesity, HTN, HLD, Tobacco use, Anxiety and Depression/Schizophrenia, Chronic COPD, Seizure disorder, Hx NSVT, Hx CVA, Migraines who presents to the [facility] ED on 09/19/20 with history of onset chest discomfort, midsternal with episode of nausea as well as emesis without dyspnea or diaphoresis and generalized abdominal discomfort and cramping with no recent bowel movement. 1. Chest Pain: EKG in ED sinus rhythm with no acute evidence of ischemia, CXR w/ no acute cardiopulmonary findings, initial trop normal x1. Will admit to PCU, place on a monitored bed to assure no acute myocardial infarction with serial cardiac enzymes and EKGs. As noted 2019 cardiac catheterization with nonobstructive CAD therefore low suspicion however to be cautious if serial cardiac enzymes and repeat EKGs remain unremarkable would pursue a.m. cardiac stress testing. FLP in AM. Magnesium level requested. ASA, NG, morphine. 2. Hypokalemia: Admission K+ 3.2, magnesium level requested, supplementation given, repeat level in AM. 3. Acute constipation: CT abdomen and pelvis with evidence of constipation with no acute intra-abdominal findings otherwise, we will administer MiraLAX as well as as needed bowel regimen agents. 4. Nonobstructive CAD: 05/2019 cardiac catheterization with LVEF 65%, normal LV wall motion, normal LV systolic function, angiographically normal left main, mid LAD with mild luminal irregularities less than 30%, circumflex artery angiographically normal, right coronary artery with mild luminal irregularities less than 30% with recommended medical management. Will continue patient aspirin, metoprolol, not on statin therapy nor LAVONNE inhibitor/ARB. Cardiac catheterization 2019 with nonobstructive disease. 5. Hypertension: Continue home regimen including metoprolol, prazosin with hold parameters, PRN hydralazine. 6. Hyperlipidemia: Not on statin therapy, FLP in AM. 7. History CVA: We will continue aspirin, hypertensive regimen, holding diabetic oral medicine with insulin sliding scale as noted and Accu-Cheks, not on statin therapy. 8. History of migraines: We will continue patient home Depakote and topiramate regimen. 9. Chronic COPD: Not on scheduled inhalers, will continue as needed albuterol, encourage head of bed, I-S. 10. Hx of Tobacco Abuse: Encourage continued cessation. 11. Seizure disorder: Continue home depakote regimen. 12. Morbid Obesity: Weight loss and lifestyle changes encouraged, nutrition consulted. 13. Anxiety and depression/PTSD/schizophrenia: We will continue patient home Depakote, lurasidone, duloxetine regimen. 14. Diabetes mellitus type II: Hold oral home regimen, NPO for stress with then transition to ADA diet, accu checks w/ ISS. 15. DVT prophylaxis: SCDs, Lovenox. Visit Charges OBSV E&M: 00820 Initial observation care L3
[2020-09-19 04:40] LABS: Magnesium 1.9 mg/dL (1.6-2.6)
[2020-09-19] MEDS: 0.9% Normal Saline 1,000 ML 100 ML IV ×2 (05:22→16:25)
[2020-09-19] MEDS: 0.9% Saline Lock 10 ML Syringe IV ×2 (05:49→05:57)
[2020-09-19] MEDS: Polyethylene Glycol 3350 17 GM PACKET PO ×2 (05:49→12:30)
[2020-09-19] MEDS: Potassium Chloride Oral Tablet 20 MEQ 40 MEQ PO (05:49)
[2020-09-19] MEDS: Morphine 2 MG/ML Syringe IV ×2 (05:57→09:34)
[2020-09-19 06:00] LABS: Bedside Glucose 113 mg/dL (70-110)
--- NOTE | 2020-09-19 06:19 | EKG12_ITS ---
Test Reason : CP ADMIT Blood Pressure : / mmHG Vent. Rate : 056 BPM Atrial Rate : 056 BPM P-R Int : 232 ms QRS Dur : 084 ms QT Int : 472 ms P-R-T Axes : 045 -12 012 degrees QTc Int : 455 ms Sinus bradycardia with 1st degree A-V block Inferior infarct , age undetermined Abnormal ECG Confirmed by CATHY ROJAS, LUIS M ([id number]), publishing editor HERMAN DOWNS ([id number]) on 09/21/2020 9:49:57 AM Referred By: DR CAMEJO Confirmed By:LUIS M MORGAN MD
[2020-09-19] MEDS: Divalproex Sodium 250 MG Tablet PO ×2 (12:30→16:26)
[2020-09-19] MEDS: DULoxetine Hcl 30 MG Capsule PO (12:30)
[2020-09-19] MEDS: Topiramate 200 MG Tablet PO (12:30)
[2020-09-19] MEDS: Pantoprazole Sodium 40 MG Tablet PO (12:31)
[2020-09-19] MEDS: Metoprolol(XL)Succ 25 MG Tablet PO (12:32)
--- NOTE | 2020-09-19 14:01 | STRESSREP ---
Stress Test Report Pharmacologic myocardial perfusion stress test. 64-year-old lady with a history of chest pain. Stress protocol: Resting EKG demonstrates normal sinus rhythm with a rate of 61 bpm normal intervals are noted resting blood pressure is 128/72 mmHg. 0.4 mg of regadenoson was infused per usual protocol followed by rapid intravenous saline flush injection continuous EKG monitoring was performed. The maximum heart rate was 82 bpm which was 52% of maximum predicted heart rate the maximum workload was 1 metabolic equivalent. At rest there were no ST or T wave changes noted to suggest abnormal flow reserve and at peak infusion no ST or T wave changes were noted to suggest abnormal flow reserve. The maximum blood pressure was 128/72 mmHg. Myocardial perfusion protocol. 14.6 mCi of technetium 99m sestamibi was injected at rest. 0.4 mg of regadenoson was infused per usual protocol. At peak infusion 44.3 mCi of technetium 99m sestamibi was injected stress images were obtained stress and rest images were reconstructed and compared in the short axis vertical long and horizontal long axis. Gated images were also obtained. Perfusion SPECT analysis: Review of the stress images demonstrated normal uptake of tracer noted in all areas of the myocardium. The resting images similarly demonstrated normal uptake of tracer noted in all areas of the myocardium. No obvious areas of reversibility are noted to suggest ischemia and no previous infarct is noted. Gated SPECT analysis: The gated ejection fraction is 78%. Conclusion: Normal pharmacologic myocardial perfusion stress test. Preserved ejection fraction.
--- NOTE | 2020-09-19 14:08 | CASEMGMT ---
Patient is active with [facility]. ELÍAS called Cy Saunders on the coverage line and left a message for Rebecca Tracey (correctional counselor/case manager). Pastora Patrick MSW MADELYN
[2020-09-19] MEDS: Magnesium Citrate 300 ML 150 ML PO (14:59)
--- NOTE | 2020-09-19 16:35 | PCM.DC ---
Discharge Instructions Diet Discharge Diet: 2000 Calorie Control Diet Activity Discharge Activity: Return to Normal Activity Follow Up Care Test Results: Test results from this visit will be discussed in further detail at your follow-up appointment, if applicable. Discharge Plan Admission Admit Date/Time: 09/19/20 04:32 Attending Provider: Jorje Larkin Primary Care Provider: Fatoumata Rosen Instructions Patient Instructions: ED Chest Pain, Noncardiac Discharge Orders/Prescriptions Prescriptions: New polyethylene glycol 3350 17 gram Powder In Packet 17 g PO DAILY Qty: 0 RF: 0 sennosides-docusate sodium [Stool Softener-Stimulant Laxat] 8.6-50 mg Tablet 2 tab PO BID PRN PRN (Reason: Constipation) Qty: 1 RF: 0 Metamucil Fiber Singles 3.4 gram Powder In Packet 1 packet PO DAILY PRN PRN (Reason: Constipation) Qty: 0 RF: 0 Continued albuterol sulfate 1 INHALER inhaler 2 puff inhalation Q6H PRN PRN (Reason: Shortness Of Breath) RF: 0 prazosin 2.000 capsule 4 mg PO QHS RF: 0 calcium carbonate-vitamin D3 1 EACH tablet 1 ea PO DAILY RF: 0 metoprolol succinate 25 MG tablet extended release 24 hr 25 mg PO DAILY RF: 0 divalproex 250 MG tablet 250 mg PO BIDCM RF: 0 topiramate 200 MG tablet 200 mg PO BID RF: 0 pantoprazole 40 MG tablet 40 mg PO DAILY RF: 0 lurasidone 40 MG tablet 1 tab PO DAILY RF: 0 duloxetine 30 MG capsule,delayed release(DR/EC) 30 mg PO DAILY RF: 0 metformin 500 mg tablet 500 mg PO DAILY RF: 0 ondansetron 4 mg tablet,disintegrating 4 mg PO Q8H Qty: 10 RF: 0 ondansetron 4 mg tablet,disintegrating 4 mg PO Q8H PRN (Reason: nausea and vomiting) Qty: 10 RF: 0 Discontinued amoxicillin-pot clavulanate 875-125 mg tablet 1 tab PO BID RF: 0 prednisone 20 MG tablet 40 mg PO DAILY RF: 0 Referrals / Follow Up: Fatoumata Rosen MD [Primary Care Provider] - Disposition Disposition (needs filled in before D/C Order can be placed): Home Health Service
--- NOTE | 2020-09-19 16:40 | DS.PCM_ITS ---
Providers Date of Admission: 09/19/20 Primary Care Physician: Dr. Fatoumata Rosen MD Reason For Visit: chest pain, abd pain, constipation Diagnosis Discharge Diagnosis (1) Chest pain: Status: Acute Code(s): R07.9 - Chest pain, unspecified Qualifiers: Chest pain type: unspecified Qualified Code(s): R07.9 - Chest pain, unspecified (2) Constipation: Status: Acute Code(s): K59.00 - Constipation, unspecified Qualifiers: Constipation type: unspecified constipation type Qualified Code(s): K59.00 - Constipation, unspecified Medications at Discharge Home Medications albuterol sulfate 2 puff INHALATION Q6H PRN PRN 02/20/18 prazosin 4 mg PO QHS 03/13/19 calcium carbonate-vitamin D3 1 ea PO DAILY 06/13/19 metoprolol succinate 25 mg PO DAILY 07/08/19 divalproex 250 mg PO BIDCM 11/15/19 topiramate 200 mg PO BID 11/15/19 duloxetine 30 mg PO DAILY 05/27/20 lurasidone 1 tab PO DAILY 05/27/20 pantoprazole 40 mg PO DAILY 05/27/20 metformin 500 mg PO DAILY 09/02/20 ondansetron 4 mg PO Q8H #10 tab 09/11/20 ondansetron 4 mg PO Q8H PRN #10 tab 09/11/20 polyethylene glycol 3350 17 g PO DAILY #0 ea 09/19/20 psyllium husk (aspartame) [Metamucil Fiber Singles] 1 packet PO DAILY PRN PRN #0 ea 09/19/20 sennosides-docusate sodium [Stool Softener-Stimulant Laxat] 2 tab PO BID PRN PRN #1 tab 09/19/20 Hospital Course Operations None Procedures Stress test Summary of Care Provided Minutes Spent on Discharge: 32 Hospital Course: Presents with chest pain, abdominal pain and constipation. Patient was having just midsternal chest pain and she underwent a cardiac work- up including stress test all of which was negative. Patient has been complaining of constipation for about 4 days which is atypical for her. Patient states that she is normally regular. She did undergo a CT of the abdomen pelvis that did show constipation but no evidence of any other intra-abdominal process. Patient was requesting her morphine every 3 hours. I explained to her that with her constipation, that opiates can exacerbate that and discontinue the morp tamiko. Patient did receive magnesium citrate to help with her bowels but she has had to have a bowel movement. Patient be discharged to home with home health care services in stable condition. Physical Exam Const alert and oriented x3 Resp normal respiratory effort and clear to auscultation bilaterally Cardio regular rate, regular rhythm, S1 normal heart sound and S2 normal heart sound GI normal to inspection, nondistended, normoactive bowel sounds, non-tender and non-distended ABG / Lab / Microbiology Data Result Diagrams: 09/19/20 02:10 09/19/20 02:10 Laboratory: Laboratory Results - last 24 hr 09/19/20 09/19/20 09/19/20 02:10 02:10 02:10 WBC 7.2 RBC 4.75 Hgb 14.7 Hct 44.5 MCV 93.7 MCH 30.9 MCHC 33.0 RDW Std Deviation 43.7 RDW Coeff of Lenora 12.6 Plt Count 285 MPV 10.6 Immature Gran % (Auto) 0.100 Neut % (Auto) 43.2 L Lymph % (Auto) 38.6 [place] % (Auto) 11.1 H Eos % (Auto) 6.0 H Baso % (Auto) 1.0 Absolute Neuts (auto) 3.1 Absolute Lymphs (auto) 2.77 Nucleated RBC % 0 D-Dimer Quant (PE/DVT) Sodium 140 Potassium 3.2 L Chloride 103 Carbon Dioxide 29.0 Anion Gap 8 BUN 14 Creatinine 1.03 H Estim Creat Clear Calc 44.22 Est GFR (MDRD) Af Amer 69 Est GFR (MDRD) Non-Af 57 L BUN/Creatinine Ratio 13.6 Glucose 133 H Calcium 8.7 Magnesium Total Bilirubin 0.40 Direct Bilirubin 0.13 AST 17 ALT 20 Alkaline Phosphatase 75 Troponin I < 0.015 Total Protein 7.6 Albumin 3.4 Globulin 4.2 Lipase POC Glucose 09/19/20 09/19/20 09/19/20 02:10 02:10 02:10 WBC RBC Hgb Hct MCV MCH MCHC RDW Std Deviation RDW Coeff of Lenora Plt Count MPV Immature Gran % (Auto) Neut % (Auto) Lymph % (Auto) [place] % (Auto) Eos % (Auto) Baso % (Auto) Absolute Neuts (auto) Absolute Lymphs (auto) Nucleated RBC % D-Dimer Quant (PE/DVT) 0.45 Sodium Potassium Chloride Carbon Dioxide Anion Gap BUN Creatinine Estim Creat Clear Calc Est GFR (MDRD) Af Amer Est GFR (MDRD) Non-Af BUN/Creatinine Ratio Glucose Calcium Magnesium 1.9 Total Bilirubin Direct Bilirubin AST ALT Alkaline Phosphatase Troponin I Total Protein Albumin Globulin Lipase 161 POC Glucose 09/19/20 09/19/20 09/19/20 05:45 05:54 08:10 WBC RBC Hgb Hct MCV MCH MCHC RDW Std Deviation RDW Coeff of Lenora Plt Count MPV Immature Gran % (Auto) Neut % (Auto) Lymph % (Auto) [place] % (Auto) Eos % (Auto) Baso % (Auto) Absolute Neuts (auto) Absolute Lymphs (auto) Nucleated RBC % D-Dimer Quant (PE/DVT) Sodium Potassium Chloride Carbon Dioxide Anion Gap BUN Creatinine Estim Creat Clear Calc Est GFR (MDRD) Af Amer Est GFR (MDRD) Non-Af BUN/Creatinine Ratio Glucose Calcium Magnesium Total Bilirubin Direct Bilirubin AST ALT Alkaline Phosphatase Troponin I < 0.015 < 0.015 Total Protein Albumin Globulin Lipase POC Glucose 113 H Radiography Diagnostic Testing: Radiology Impression Chest X-Ray 09/19/20 02:20 IMPRESSION: Degenerative changes, as described above. No demonstrated acute cardiopulmonary process. Electronically Signed: Britni Sheikh MD at 2:40 EDT Tel , Service support , Abdomen/Pelvis CT 09/19/20 03:10 IMPRESSION: Constipation. No appendicitis. No hydronephrosis. Stable umbilical hernia as detailed above with minimal inflammatory change. Minimal diverticulosis no diverticulitis. Nonvisualization of the gallbladder which is likely been surgically removed. Electronically Signed: Britni Sheikh MD at 4:09 EDT Tel , Service support , D/C Instructions Discharge Diet: 2000 Calorie Control Diet Discharge Activity: Return to Normal Activity Meaningful Use Info Meaningful Use Diagnoses (Choose all that apply): None applicable Discharge Plan Admission Admit Date/Time: 09/19/20 04:32 Attending Provider: Jorje Larkin Primary Care Provider: Fatoumata Rosen Instructions Patient Instructions: ED Chest Pain, Noncardiac Discharge Orders/Prescriptions Prescriptions: New polyethylene glycol 3350 17 gram Powder In Packet 17 g PO DAILY Qty: 0 RF: 0 sennosides-docusate sodium [Stool Softener-Stimulant Laxat] 8.6-50 mg Tablet 2 tab PO BID PRN PRN (Reason: Constipation) Qty: 1 RF: 0 Metamucil Fiber Singles 3.4 gram Powder In Packet 1 packet PO DAILY PRN PRN (Reason: Constipation) Qty: 0 RF: 0 Continued albuterol sulfate 1 INHALER inhaler 2 puff inhalation Q6H PRN PRN (Reason: Shortness Of Breath) RF: 0 prazosin 2.000 capsule 4 mg PO QHS RF: 0 calcium carbonate-vitamin D3 1 EACH tablet 1 ea PO DAILY RF: 0 metoprolol succinate 25 MG tablet extended release 24 hr 25 mg PO DAILY RF: 0 divalproex 250 MG tablet 250 mg PO BIDCM RF: 0 topiramate 200 MG tablet 200 mg PO BID RF: 0 pantoprazole 40 MG tablet 40 mg PO DAILY RF: 0 lurasidone 40 MG tablet 1 tab PO DAILY RF: 0 duloxetine 30 MG capsule,delayed release(DR/EC) 30 mg PO DAILY RF: 0 metformin 500 mg tablet 500 mg PO DAILY RF: 0 ondansetron 4 mg tablet,disintegrating 4 mg PO Q8H Qty: 10 RF: 0 ondansetron 4 mg tablet,disintegrating 4 mg PO Q8H PRN (Reason: nausea and vomiting) Qty: 10 RF: 0 Discontinued amoxicillin-pot clavulanate 875-125 mg tablet 1 tab PO BID RF: 0 prednisone 20 MG tablet 40 mg PO DAILY RF: 0 Referrals / Follow Up: Fatoumata Rosen MD [Primary Care Provider] - Disposition Disposition (needs filled in before D/C Order can be placed): Home Health Service Visit Charges OBSV E&M: 95042 Observation care discharge
[2020-09-19 16:41] LABS: Bedside Glucose 139 mg/dL (70-110)
== END 2020-09-19 16:40 | disposition home health service (06) ==
LOC: ED 02:33 → PCU 05:34
PROVIDERS: Admitting Provider Family Medicine; Emergency Provider Student in an Organized Health Care Education/Training Program; PCP Internal Medicine
DX: R07.89 Other chest pain (principal); K42.9 Umbilical hernia without obstruction or gangrene; K59.00 Constipation, unspecified; K21.9 Gastro-esophageal reflux disease without esophagitis; I25.10 Atherosclerotic heart disease of native coronary artery without angina pectoris; I10 Essential (primary) hypertension; F43.10 Post-traumatic stress disorder, unspecified; E66.01 Morbid (severe) obesity due to excess calories; Z68.42 Body mass index [BMI] 45.0-49.9, adult; E78.5 Hyperlipidemia, unspecified; F41.9 Anxiety disorder, unspecified; F32.9 Major depressive disorder, single episode, unspecified; J44.9 Chronic obstructive pulmonary disease, unspecified; E87.6 Hypokalemia; E11.9 Type 2 diabetes mellitus without complications; F20.9 Schizophrenia, unspecified; G43.909 Migraine, unspecified, not intractable, without status migrainosus; Z99.81 Dependence on supplemental oxygen; Z87.891 Personal history of nicotine dependence; G40.909 Epilepsy, unspecified, not intractable, without status epilepticus; Z79.899 Other long term (current) drug therapy; Z79.84 Long term (current) use of oral hypoglycemic drugs; Z79.52 Long term (current) use of systemic steroids
CPT/HCPCS: 36415; 71045; 74177; 78452; 80048; 80076; 82962; 83690; 83735; 84484; 85025; 85379; 93005; 93017; 96361; 96374; 96375; 96376; 97802; 99218; 99251; 99285; A9500; J7030; J7040; Q9967; A4216; G0378; G0463; J2405; J2785

== ENCOUNTER 2020-10-14 03:22 | Emergency (ER) | payer MEDICARE, MEDICAID, SELFPAY ==
[2020-09-19 05:10] VITALS: BMI 46.3
[2020-10-14 03:22] VITALS: BP 134/85; PULSE 91; RESP 18; TEMP 36.2; O2SAT 94; BMI 46.0
--- NOTE | 2020-10-14 03:28 | RAD_ITS ---
STUDY: X-RAY - LUMBAR SPINE REASON FOR EXAM: Female, 65 years old. Back pain TECHNIQUE: 2 view(s) of the lumbar spine were obtained. COMPARISON: 09/19/[address] abdomen and pelvis FINDINGS: Normal lumbar lordosis. There is no substantial scoliosis. There is a normal alignment of the vertebrae. There is mild multilevel endplate spondylosis of the lumbar vertebrae. Normal disc space heights. There is a visualized right hip arthroplasty. RAD/Lumbar Spine 2 or 3 Views IMPRESSION: Mild degenerative change. No visualized acute loss of height or alignment. Electronically Signed: Britni Sheikh MD at 4:11 EDT Tel , Service support ,
--- NOTE | 2020-10-14 03:28 | RAD_ITS ---
STUDY: X-RAY - PELVIS AND RIGHT HIP REASON FOR EXAM: Female, 65 years old. Hip pain TECHNIQUE: 3 views of the pelvis and hip. COMPARISON: 09/19/2020 CT pelvis, 06/01/2020 pelvis x-ray, FINDINGS: There is a non-specific bowel gas pattern. Normal visualized soft tissue structures. Normal bilateral iliac wings, sacroiliac joints and visualized sacrum. Normal bilateral superior and inferior pubic rami. Normal pubic symphysis. Normal bilateral ischial tuberosities. There is a right hip arthroplasty secured by an acetabular screw. There is a curvilinear well-corticated fragment medial to the lesser tuberosity stable since the prior studies. There is minimal degenerative change within the left hip joint. There is no visualized acute fracture. RAD/HIP, UNI W/ Pelvis 2-3 Views IMPRESSION: Right hip arthroplasty. No visualized acute fracture. Electronically Signed: Britni Sheikh MD at 4:06 EDT Tel , Service support ,
--- NOTE | 2020-10-14 03:29 | EDS_ITS ---
HPI History of Present Illness Chief Complaint: Lower Extremity Injury Narrative Narrative: 65-year-old female presenting with right hip and lower back pain. She states that she was trying to get out of bed and rolled out. She states that she cannot ambulate at baseline and she can only can pivot. She uses a wheelchair to get around she states. She denies hitting her head or losing consciousness. She complains of pain in the right hip and lower back only. PFSH COUNTS INCLUDE 234 BEDS AT THE [facility] Medical History Anxiety Asthma Chronic pain Coronary artery disease Depression Depression Former smoker GERD (gastroesophageal reflux disease) Hypertension Irregular heart beat Irregular heart beat Migraines On home oxygen therapy PTSD (post-traumatic stress disorder) Seizures Stroke/cerebrovascular accident Home Medications albuterol sulfate 2 puff INHALATION Q6H PRN PRN 02/20/18 [History Last Taken 06/21/19 18:00] prazosin 4 mg PO QHS 03/13/19 [History Last Taken 06/19/19] calcium carbonate-vitamin D3 1 ea PO DAILY 06/13/19 [History Last Taken 06/19/19] metoprolol succinate 25 mg PO DAILY 07/08/19 [History Last Taken 07/21/19] divalproex 250 mg PO BIDCM 11/15/19 [History Last Taken Unknown] topiramate 200 mg PO BID 11/15/19 [History Last Taken Unknown] duloxetine 30 mg PO DAILY 05/27/20 [History Last Taken Unknown] lurasidone 1 tab PO DAILY 05/27/20 [History Last Taken Unknown] pantoprazole 40 mg PO DAILY 05/27/20 [History Last Taken Unknown] metformin 500 mg PO DAILY 09/02/20 [History Last Taken Unknown] ondansetron 4 mg PO Q8H #10 tab 09/11/20 [Rx Last Taken Unknown] ondansetron 4 mg PO Q8H PRN #10 tab 09/11/20 [Rx Last Taken Unknown] polyethylene glycol 3350 17 g PO DAILY #0 ea 09/19/20 [Rx Last Taken Unknown] psyllium husk (aspartame) [Metamucil Fiber Singles] 1 packet PO DAILY PRN PRN #0 ea 09/19/20 [Rx Last Taken Unknown] sennosides-docusate sodium [Stool Softener-Stimulant Laxat] 2 tab PO BID PRN PRN #1 tab 09/19/20 [Rx Last Taken Unknown] Allergy/AdvReac Type Severity Reaction Status Date / Time amoxicillin [From Augmentin] AdvReac Hives Verified 10/14/20 03:26 clavulanic acid AdvReac Hives Verified 10/14/20 03:26 [From Augmentin] sulfamethoxazole AdvReac Vomiting Verified 10/14/20 03:26 [From Bactrim] sumatriptan [From Imitrex] AdvReac Vomiting Verified 10/14/20 03:26 sumatriptan succinate AdvReac Vomiting Verified 10/14/20 03:26 [From Imitrex] trimethoprim [From Bactrim] AdvReac Vomiting Verified 10/14/20 03:26 BEE STING Allergy Anaphylaxis Uncoded 10/14/20 03:26 PAPER TAPE AdvReac Rash Uncoded 10/14/20 03:26 Family History Mother Hypertension Father Hypertension Surgical History H/O hand surgery H/O knee surgery History of cholecystectomy History of left heart catheterization (06/23/19) Social History household members: none Smoking Status: Former smoker alcohol intake: never substance use type: does not use ROS ROS ED Constitutional Constitutional ED: Denies chills, fever(s) or sweats Eyes Eyes: Denies blurry vision or change in vision ENT ENT ED: Denies ear pain, rhinorrhea or sore throat Cardiovascular Cardiovascular: Denies chest pain, palpitations or racing heartbeat Respiratory/Chest Respiratory/Chest: Denies cough, dyspnea or sputum Gastrointestinal Gastrointestinal: Denies abdominal pain, constipation, diarrhea or vomiting Genitourinary Genitourinary ED: Denies dysuria, hematuria or urinary frequency Musculoskeletal Musculoskeletal: Reports other Details: Right lower back pain Right hip pain ; Denies myalgias or neck pain Integumentary Denies abscess, Abrasions or rash Neurologic Neurologic: Denies headache(s), paresthesias or weakness Psychiatric Psychiatric: Denies anxiety, depression, suicidal ideation or suicidal thoughts Endocrine Endocrinology: Denies polydipsia or polyuria EXAM Physical Exam Const Vital Signs: 10/14/20 03:22 Temperature 97.2 F L Temperature Source Temporal Pulse Rate 91 Respiratory Rate 18 Blood Pressure 134/85 H Blood Pressure Mean 101 Pulse Ox 94 Oxygen Delivery Method Room Air Positive obese General Appearance ED: NAD Nutritional Appearance: obese HEENT Reports moist mucous membranes Negative for trauma Eyes PERRL and EOMs intact bilaterally Cardio regular rate and regular rhythm Back/Spine Thoracic Spine / Upper Back: Negative for thoracic spinal tenderness Lumbar Spine / Lower Back: paraspinal muscle tenderness right Extremity Extremity Narrative: Tenderness to palpation of the right greater trochanter. No obvious deformity. Patient is able to flex her right hip and hold her leg extended and straight for 5 seconds. Right knee extensor mechanism is intact. General Extremety ED: Negative for edema General Extremity: Negative for edema Psych mental status grossly normal Skin no rashes or lesions noted and no wounds MDM MDM Lab Data Lab results narrative: Patient presents with right hip pain and lower back pain after falling from her bed. She did not hit her head or lose consciousness. She states she was able to be assisted to a chair. EMS did report that she walked to the cot however she denies this. I did obtain x-rays of the right hip and pelvis as well as the lumbar spine which by my interpretation show no acute fractures or subluxations. Patient was given 4 mg of IM morphine and her pain was controlled. I do not believe she requires narcotics for home. She be discharged home in stable condition. Impression: 1. Mechanical fall 2. Right hip contusion 3. Lumbar sprain Radiography Diagnostic Testing: Radiology Impression Hip/Pelvis X-Ray 10/14/20 03:28 IMPRESSION: Right hip arthroplasty. No visualized acute fracture. Electronically Signed: Britni Sheikh MD at 4:06 EDT Tel , Service support , Lumbar Spine X-Ray 10/14/20 03:28 IMPRESSION: Mild degenerative change. No visualized acute loss of height or alignment. Electronically Signed: Britni Sheikh MD at 4:11 EDT Tel , Service support , Discharge Plan Triage Chief Complaint: Lower Extremity Injury ED Provider: Alexander Serrato Dx/Rx/DC Orders Instructions: ED Back Sprain/Strain, ED Hip Contusion Prescriptions: No Action albuterol sulfate 1 INHALER inhaler 2 puff inhalation Q6H PRN PRN (Reason: Shortness Of Breath) RF: 0 prazosin 2.000 capsule 4 mg PO QHS RF: 0 calcium carbonate-vitamin D3 1 EACH tablet 1 ea PO DAILY RF: 0 metoprolol succinate 25 MG tablet extended release 24 hr 25 mg PO DAILY RF: 0 divalproex 250 MG tablet 250 mg PO BIDCM RF: 0 topiramate 200 MG tablet 200 mg PO BID RF: 0 pantoprazole 40 MG tablet 40 mg PO DAILY RF: 0 lurasidone 40 MG tablet 1 tab PO DAILY RF: 0 duloxetine 30 MG capsule,delayed release(DR/EC) 30 mg PO DAILY RF: 0 metformin 500 mg tablet 500 mg PO DAILY RF: 0 ondansetron 4 mg tablet,disintegrating 4 mg PO Q8H Qty: 10 RF: 0 ondansetron 4 mg tablet,disintegrating 4 mg PO Q8H PRN (Reason: nausea and vomiting) Qty: 10 RF: 0 polyethylene glycol 3350 17 gram Powder In Packet 17 g PO DAILY Qty: 0 RF: 0 sennosides-docusate sodium [Stool Softener-Stimulant Laxat] 8.6-50 mg Tablet 2 tab PO BID PRN PRN (Reason: Constipation) Qty: 1 RF: 0 Metamucil Fiber Singles 3.4 gram Powder In Packet 1 packet PO DAILY PRN PRN (Reason: Constipation) Qty: 0 RF: 0 Primary Care Provider: Fatoumata Rosen Referrals: Fatoumata Rosen MD [Primary Care Provider] - Disposition Disposition: Home, self care
[2020-10-14] MEDS: Morphine 4 MG/ML Syringe IM (03:33)
== END 2020-10-14 05:14 | disposition home or self-care (01) ==
PROVIDERS: Emergency Provider Student in an Organized Health Care Education/Training Program; PCP Internal Medicine
DX: S70.01XA Contusion of right hip, initial encounter (principal); S33.5XXA Sprain of ligaments of lumbar spine, initial encounter; E66.9 Obesity, unspecified; I25.10 Atherosclerotic heart disease of native coronary artery without angina pectoris; J45.909 Unspecified asthma, uncomplicated; K21.9 Gastro-esophageal reflux disease without esophagitis; I10 Essential (primary) hypertension; W06.XXXA Fall from bed, initial encounter; Z87.891 Personal history of nicotine dependence; Z79.84 Long term (current) use of oral hypoglycemic drugs
CPT/HCPCS: 72100; 73502; 96372; 99284

== ENCOUNTER 2020-10-19 02:20 | Emergency (ER) | payer MEDICARE, MEDICAID, SELFPAY ==
--- NOTE | 2020-10-19 02:53 | RAD_ITS ---
STUDY: X-RAY CHEST REASON FOR EXAM: Female, 65 years old. Chest pain TECHNIQUE: Single AP portable view of the chest. COMPARISON: 09/19/2020 FINDINGS: The lungs are clear and expanded. There is no demonstrated pleural abnormality. Normal size heart. Normal mediastinum and ita. Normal visualized pulmonary arteries. Normal visualized aortic arch and descending thoracic aorta. Normal visualized thoracic spine. Normal visualized ribs, clavicles, and shoulders. There is no demonstrated abnormality of the visualized soft tissue structures of the upper abdomen. RAD/Chest 1 View (Portable) IMPRESSION: Normal x-ray examination of the chest. Electronically Signed: Blaine Hatch MD at 3:17 EDT Tel , Service support ,
--- NOTE | 2020-10-19 04:37 | EDS_ITS ---
HPI History of Present Illness Chief Complaint: Chest Pain Informant: patient and EMS Narrative Narrative: 65-year-old female presents the emergency department with 1-1/2 hours of right-sided chest pain. She tells me that she woke with a sharp pain on the right anterior chest that radiates to her left arm. It is worse with touch movement and breathing. She notes continued low back pain from a fall last week. States she tried some nitroglycerin did not give her any relief of this chest pain. She does however report that she has had some nausea and vomiting this evening. She notes some nausea currently. No diarrhea. [facility] Medical History Anxiety Asthma Chronic pain Coronary artery disease Depression Depression Former smoker GERD (gastroesophageal reflux disease) Hypertension Irregular heart beat Irregular heart beat Migraines On home oxygen therapy PTSD (post-traumatic stress disorder) Seizures Stroke/cerebrovascular accident Home Medications albuterol sulfate 2 puff INHALATION Q6H PRN PRN 02/20/18 [History Last Taken 06/21/19 18:00] prazosin 4 mg PO QHS 03/13/19 [History Last Taken 06/19/19] calcium carbonate-vitamin D3 1 ea PO DAILY 06/13/19 [History Last Taken 06/19/19] metoprolol succinate 25 mg PO DAILY 07/08/19 [History Last Taken 07/21/19] divalproex 250 mg PO BIDCM 11/15/19 [History Last Taken Unknown] topiramate 200 mg PO BID 11/15/19 [History Last Taken Unknown] duloxetine 30 mg PO DAILY 05/27/20 [History Last Taken Unknown] lurasidone 1 tab PO DAILY 05/27/20 [History Last Taken Unknown] pantoprazole 40 mg PO DAILY 05/27/20 [History Last Taken Unknown] metformin 500 mg PO DAILY 09/02/20 [History Last Taken Unknown] ondansetron 4 mg PO Q8H #10 tab 09/11/20 [Rx Last Taken Unknown] ondansetron 4 mg PO Q8H PRN #10 tab 09/11/20 [Rx Last Taken Unknown] polyethylene glycol 3350 17 g PO DAILY #0 ea 09/19/20 [Rx Last Taken Unknown] psyllium husk (aspartame) [Metamucil Fiber Singles] 1 packet PO DAILY PRN PRN #0 ea 09/19/20 [Rx Last Taken Unknown] sennosides-docusate sodium [Stool Softener-Stimulant Laxat] 2 tab PO BID PRN PRN #1 tab 09/19/20 [Rx Last Taken Unknown] Allergy/AdvReac Type Severity Reaction Status Date / Time amoxicillin [From Augmentin] AdvReac Hives Verified 10/14/20 03:26 clavulanic acid AdvReac Hives Verified 10/14/20 03:26 [From Augmentin] sulfamethoxazole AdvReac Vomiting Verified 10/14/20 03:26 [From Bactrim] sumatriptan [From Imitrex] AdvReac Vomiting Verified 10/14/20 03:26 sumatriptan succinate AdvReac Vomiting Verified 10/14/20 03:26 [From Imitrex] trimethoprim [From Bactrim] AdvReac Vomiting Verified 10/14/20 03:26 BEE STING Allergy Anaphylaxis Uncoded 10/14/20 03:26 PAPER TAPE AdvReac Rash Uncoded 10/14/20 03:26 Family History Mother Hypertension Father Hypertension Surgical History H/O hand surgery H/O knee surgery History of cholecystectomy History of left heart catheterization (06/23/19) Social History household members: none Smoking Status: Former smoker alcohol intake: never substance use type: does not use ROS ROS ED Constitutional Constitutional ED: Denies chills or weight loss Eyes Eyes: Denies change in vision or diplopia ENT ENT ED: Denies ear pain, rhinorrhea or sore throat Cardiovascular Cardiovascular: Reports chest pain; Denies orthopnea, palpitations or racing heartbeat Respiratory/Chest Respiratory/Chest: Denies cough, dyspnea or orthopnea Gastrointestinal Gastrointestinal: Reports nausea and vomiting; Denies abdominal pain or diarrhea Genitourinary Genitourinary ED: Denies dysuria, hematuria or urinary frequency Musculoskeletal Musculoskeletal: Denies arthralgias or myalgias Integumentary Denies abscess or rash Neurologic Neurologic: Denies headache(s) or weakness Psychiatric Psychiatric: Denies anxiety, depression, suicidal ideation or suicidal thoughts Endocrine Endocrinology: Denies polydipsia, polyphagia or polyuria Allergic/Immunologic Allergic/Immunologic ED: Denies mouth swelling, tongue swelling or urticaria EXAM Physical Exam Const Positive well nourished and well developed General Appearance ED: well developed HEENT Reports normocephalic, head/scalp atraumatic and moist mucous membranes Eyes PERRL and EOMs intact bilaterally Neck no lymphadenopathy, supple and no JVD Chest Wall Chest: tenderness Resp normal respiratory effort and clear to auscultation bilaterally Cardio regular rate, regular rhythm and no murmurs GI normal to inspection, nondistended, normoactive bowel sounds and non-tender Palpation: soft Back/Spine no CVA tenderness and normal ROM Extremity normal to inspection General Extremety ED: Negative for edema General Extremity: Negative for edema Neuro oriented x3 and CN's II-XII intact bilaterally Sensorium / Orientation: alert Motor Exam: strength 5/5 throughout Psych mental status grossly normal Mood & Affect: Negative for depressed or tearful Skin no rashes or lesions noted and no wounds Heart Score History: Slightly/Non-Suspicious ECG: Normal Age: >45 - <65 years Risk Factors: >/= 3 Risk Factors or History of CAD Troponin: </= Normal Limit Score: 3 MDM MDM MDM Narrative Medical decision making narrative: Patient's initial high-sensitivity troponin is 3.45. CBC and chemistries are normal. My interpretation of the patient's chest x-ray is no acute process. I believe this to be chest wall related and as such we gave her a dose of Toradol and [place] as well as Zofran. Delta troponin 3.35. I think at this point the patient can be discharged home safely. Instructions to follow-up as needed return if worsening or concerns Lab Data Attestation: I reviewed the patient's lab results. EKG Initial EKG: Attestation: I personally reviewed and interpreted this EKG as follows: Comments: EKG demonstrates a normal sinus rhythm at a rate of 67. No concerning features of ACS or ectopy noted. Discharge Plan Triage Chief Complaint: Chest Pain ED Provider: Conor Fry Dx/Rx/DC Orders Clinical Impression: Vomiting, Chest pain Instructions: ED Chest Pain, Noncardiac Prescriptions: No Action albuterol sulfate 1 INHALER inhaler 2 puff inhalation Q6H PRN PRN (Reason: Shortness Of Breath) RF: 0 prazosin 2.000 capsule 4 mg PO QHS RF: 0 calcium carbonate-vitamin D3 1 EACH tablet 1 ea PO DAILY RF: 0 metoprolol succinate 25 MG tablet extended release 24 hr 25 mg PO DAILY RF: 0 divalproex 250 MG tablet 250 mg PO BIDCM RF: 0 topiramate 200 MG tablet 200 mg PO BID RF: 0 pantoprazole 40 MG tablet 40 mg PO DAILY RF: 0 lurasidone 40 MG tablet 1 tab PO DAILY RF: 0 duloxetine 30 MG capsule,delayed release(DR/EC) 30 mg PO DAILY RF: 0 metformin 500 mg tablet 500 mg PO DAILY RF: 0 ondansetron 4 mg tablet,disintegrating 4 mg PO Q8H Qty: 10 RF: 0 ondansetron 4 mg tablet,disintegrating 4 mg PO Q8H PRN (Reason: nausea and vomiting) Qty: 10 RF: 0 polyethylene glycol 3350 17 gram Powder In Packet 17 g PO DAILY Qty: 0 RF: 0 sennosides-docusate sodium [Stool Softener-Stimulant Laxat] 8.6-50 mg Tablet 2 tab PO BID PRN PRN (Reason: Constipation) Qty: 1 RF: 0 Metamucil Fiber Singles 3.4 gram Powder In Packet 1 packet PO DAILY PRN PRN (Reason: Constipation) Qty: 0 RF: 0 Primary Care Provider: Fatoumata Rosen Referrals: Fatoumata Rosen MD [Primary Care Provider] - As Needed Disposition Disposition: Home, Self Care
[2020-10-19 05:19] LABS: Troponin-I HS 3.4 pg/mL (3.0-53.7)
[2020-10-19 05:19] LABS: Anion Gap 7 (5-15); BUN 17 mg/dL (7-18); BUN/Creat Ratio 16.8 RATIO (10-20); Basophil% 5.5 % (0-1); Calcium,Total 8.9 mg/dL (8.5-10.1); Chloride 103 mmol/L (98-107); Creatinine, Serum 1.01 mg/dL (0.55-1.02); EST Glomerular Filtration Rate 59 mL/min (>60); Eosinophils% 0.8 % (0-5); Est Glom Filt Rate - Afr Amer 72 mL/min (>60); Glucose 135 mg/dL (74-106); Hematocrit 42.6 % (37-47); Hemoglobin 14.2 g/dL (12.0-15.0); Lymphocyte % 31.9 % (19-41); Mean Corp Hgb Conc 33.3 g/dL (32-36); Mean Corpuscular Hgb 30.9 pg (27.0-32.0); Mean Corpuscular Volume 92.6 fL (81-99); Mean Platelet Vol. 10.1 fl (6.2-12.0); Monocyte% 10.9 % (0-10); Neutrophil % 50.5 % (47-70); Platelet Count 273 K/mm3 (150-450); Potassium 3.7 mmol/L (3.5-5.1); RBC Distribution Width SD 44.2 fl (35.1-43.9); Sodium Level 137 mmol/L (136-145); Troponin-I HS 3.5 pg/mL (3.0-53.7); White Blood Count 10.3 K/mm3 (4.4-11.0)
[2020-10-19 05:20] LABS: Absolute Lymphocyte Count 3.27 X10^3/uL (0.83-4.51); Absolute Neutrophil Count 5.2 X10^3/uL (2.0-7.7); Lymphocyte # 3.27 X10^3/ul (0.83-4.51); Neutrophil # 5.19 X10^3/uL (2.7-7.7)
--- NOTE | 2020-10-19 06:15 | EKG12_ITS ---
Test Reason : CP Blood Pressure : / mmHG Vent. Rate : 067 BPM Atrial Rate : 067 BPM P-R Int : 228 ms QRS Dur : 082 ms QT Int : 414 ms P-R-T Axes : 040 -12 009 degrees QTc Int : 437 ms Sinus rhythm with 1st degree A-V block Inferior infarct , age undetermined Abnormal ECG Confirmed by CATHY ROJAS, LUIS M ([id number]), editorial director HERMAN DOWNS ([id number]) on 10/20/2020 12:26:02 PM Referred By: FLORENTINO Confirmed By:LUIS M MORGAN MD
== END 2020-10-19 06:30 | disposition home or self-care (01) ==
PROVIDERS: Emergency Provider Emergency Medicine; PCP Internal Medicine
DX: R11.0 Nausea (principal); R07.9 Chest pain, unspecified; I25.10 Atherosclerotic heart disease of native coronary artery without angina pectoris; Z87.891 Personal history of nicotine dependence
CPT/HCPCS: 36415; 71045; 80048; 84484; 85025; 93005; 96374; 99285; A4216

== ENCOUNTER 2020-11-04 01:07 | Emergency (ER) | payer MEDICARE, MEDICAID, SELFPAY ==
[2020-11-04] VITALS (9 sets, daily range): BP systolic 115–155; BP diastolic 82–109; PULSE 78–105; RESP 16–22; TEMP 35.9–36.7; O2SAT 93–98; BMI 45.3
--- NOTE | 2020-11-04 01:42 | RAD_ITS ---
STUDY: X-RAY CHEST REASON FOR EXAM: Female, 65 years old. chest pain TECHNIQUE: 1 view COMPARISON: 10/19/2020 FINDINGS: Cardiomediastinal silhouette is unremarkable. Costophrenic angles are sharp. Lungs are clear. The trachea is midline. There is no pneumothorax. Degenerative changes of the thoracic spine and bilateral shoulders are noted. RAD/Chest 1 View (Portable) IMPRESSION: No acute cardiopulmonary process. Electronically Signed: Darinel Barrow MD at 3:04 EDT Tel , Service support ,
--- NOTE | 2020-11-04 01:42 | CT_ITS ---
STUDY: CT BRAIN WITHOUT CONTRAST REASON FOR EXAM: Female, 65 years old. Headache, vertigo RADIATION DOSAGE (If Supplied By Facility): CTDIvol = ( 44.99 ) mGy, DLP = ( 829.85 ) mGycm TECHNIQUE: Transaxial CT imaging of the brain was performed without administration of intravenous contrast material. Individualized dose optimization techniques were used for this CT. COMPARISON: No relevant priors. FINDINGS: There is no intra-/extra-axial fluid collection, mass effect, or midline shift. The moore/white matter junction is preserved. Hypoattenuation of periventricular and subcortical white matter suggestive of chronic small vessel ischemic disease. Mild diffuse parenchymal volume loss is noted. There is vascular calcification. The basal cisterns are patent. The paranasal sinuses and mastoid air cells are clear. The calvarium is intact. CT/Brain/Head without Contrast IMPRESSION: No acute intracranial finding. MRI may be obtained if clinically indicated. Electronically Signed: Darinel Barrow MD at 3:11 EDT Tel , Service support ,
--- NOTE | 2020-11-04 01:45 | EKG12_ITS ---
Test Reason : CP Blood Pressure : / mmHG Vent. Rate : 099 BPM Atrial Rate : 099 BPM P-R Int : 228 ms QRS Dur : 070 ms QT Int : 344 ms P-R-T Axes : 045 -12 007 degrees QTc Int : 441 ms Sinus rhythm with 1st degree A-V block Inferior infarct , age undetermined Abnormal ECG Confirmed by JANI ROJAS, NADIA ([id number]), senior editor HERMAN DOWNS ([id number]) on 11/07/2020 1:08:32 PM Referred By: YUKO Confirmed By:NADIA GUNTER MD
[2020-11-04] MEDS: Meclizine HCl 25 MG Tablet PO (02:10)
[2020-11-04 02:11] LABS: Absolute Lymphocyte Count 2.71 X10^3/uL (0.83-4.51); Absolute Neutrophil Count 4.6 X10^3/uL (2.0-7.7); Basophil# 0.07 X10^3/uL; Basophil% 0.8 % (0-1); Eosinophil# 0.11 X10^3/uL; Eosinophils% 1.3 % (0-5); Hematocrit 39.3 % (37-47); Lymphocyte # 2.71 X10^3/ul (0.83-4.51); Lymphocyte % 32.3 % (19-41); Mean Corp Hgb Conc 33.1 g/dL (32-36); Mean Corpuscular Hgb 30.5 pg (27.0-32.0); Mean Corpuscular Volume 92.3 fL (81-99); Mean Platelet Vol. 10.1 fl (6.2-12.0); Monocyte# 0.92 X10^3/uL; NRBC Flagged by Analyzer 0 % (0-5); Neutrophil # 4.55 X10^3/uL (2.7-7.7); Neutrophil % 54.4 % (47-70); Platelet Count 227 K/mm3 (150-450); RBC Distribution Width CV 12.9 % (11.6-14.6); RBC Distribution Width SD 43.3 fl (35.1-43.9); Red Blood Count 4.26 M/mm3 (4.2-5.4); White Blood Count 8.4 K/mm3 (4.4-11.0)
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
[2020-11-04 02:33] LABS: Alcohol, Blood (Medical)-Serum < 3.0 mg/dL
[2020-11-04 02:35] LABS: ALB/GLOB Ratio 0.9 RATIO (0.9-2.4); AST(SGOT) 25 U/L (15-37); Alanine Aminotransfer ALT/SGPT 29 U/L (13-56); Albumin, Serum 3.4 g/dL (3.2-5.0); Alkaline Phosphatase 67 U/L (45-117); Anion Gap 5 (5-15); BUN 17 mg/dL (7-18); BUN/Creat Ratio 16.5 RATIO (10-20); Calcium,Total 8.8 mg/dL (8.5-10.1); Chloride 108 mmol/L (98-107); Creatinine, Serum 1.03 mg/dL (0.55-1.02); EST Glomerular Filtration Rate 57 mL/min (>60); Est Glom Filt Rate - Afr Amer 69 mL/min (>60); Estimated Creatinine Clearance 43.64 ml/min; Globulin 3.6 g/dL (2.2-4.2); Glucose 143 mg/dL (74-106); Potassium 3.3 mmol/L (3.5-5.1); Sodium Level 138 mmol/L (136-145); Troponin-I HS 4.5 pg/mL (3.0-53.7)
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
--- NOTE | 2020-11-04 04:45 | ED.RN ---
patient has left the emergency room in wheel trying to find a way to [facility]. Patient witnessed by staff wheeling down the ramp and going across the road and knocking on peoples doors attempting to find a ride. [place] police contacted to bring patient back to the emergency room.
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
[2020-11-04] MEDS: Ziprasidone IM 20 MG/ML VIAL IM (05:21)
--- NOTE | 2020-11-04 06:30 | ED.RN ---
patient restraints d/c at this time
--- NOTE | 2020-11-04 06:51 | ED.RN ---
patient has been referred to [facility] for placement at this time
--- NOTE | 2020-11-04 07:47 | ED.RN ---
pt sats dropped t o85% while sleeping. o2 applied at 2l. sats 96%
[2020-11-04 08:45] LABS: Bacteria 0 SEEN /hpf (None Seen); Mucous, Urine 0 SEEN /hpf (<or=2+); Red Blood Cells-Urine 0 SEEN /hpf (0-5)
[2020-11-04 09:03] LABS: Amphetamine Urine VISTA NEGATIVE (<1000 ng/mL); Barbiturate Urine VISTA NEGATIVE (< 200 ng/mL); Benzodiazepine Urine VISTA NEGATIVE (< 200 ng/mL); Cocaine Urine VISTA NEGATIVE (< 300 ng/mL); Ecstacy Urine VISTA NEGATIVE (< 500 ng/mL); Methadone Urine VISTA NEGATIVE (< 300 ng/mL); PCP Urine VISTA NEGATIVE (< 25 ng/mL); THC Urine VISTA NEGATIVE (< 50 ng/mL); Vista UDS pH Range 6
[2020-11-04 09:05] LABS: Color, Urine Yellow (Yellow); Glucose, Dipstick Normal (Normal); Ketone-Dipstick Negative (Negative); Leukocyte Esterase-Dipstick Negative /ul (Negative); Nitrite-Dipstick Negative (Negative); Occult Blood-Urine Negative /ul (Negative); Protein-Dipstick Negative (Negative); Urine Bilirubin Dipstick Negative (Negative); Urine Clarity Clear (Clear); Urine Urobilinogen Normal (Normal)
[2020-11-04 09:17] LABS: Squamous Epithelial Cells - UA 0-5 SEEN /hpf (5-10); White Blood Cells 0-5 SEEN /hpf (0-5)
[2020-11-04] MEDS: Divalproex Sodium 250 MG Tablet PO (09:41)
--- NOTE | 2020-11-04 09:52 | ED.RN ---
PT ON THE PHONE WITH HER REGISTERED RADIOGRAPHER PER HER REQUEST
== END 2020-11-04 16:05 ==
PROVIDERS: Emergency Provider Emergency Medicine; PCP Internal Medicine
DX: F23 Brief psychotic disorder (principal); R42 Dizziness and giddiness; R51.9 Headache, unspecified; I25.10 Atherosclerotic heart disease of native coronary artery without angina pectoris; Z87.891 Personal history of nicotine dependence; Z79.899 Other long term (current) drug therapy
CPT/HCPCS: 70450; 71045; 80053; 80307; 81001; 82077; 84484; 85025; 87426; 93005; 96372; 99285; A4216; J3486

== ENCOUNTER 2020-11-20 03:59 | Emergency (ER) | payer MEDICARE, MEDICAID, SELFPAY ==
[2020-11-04 01:08] VITALS: BMI 45.3
[2020-11-20 04:01] VITALS: BP 101/62; PULSE 76; RESP 16; TEMP 36.4; O2SAT 95; BMI 45.1
--- NOTE | 2020-11-20 04:38 | CT_ITS ---
STUDY: CT ABDOMEN AND PELVIS WITH CONTRAST REASON FOR EXAM: Female, 65 years old. abdominal pain RADIATION DOSAGE (If Supplied By Facility): CTDIvol = ( 20.34 ) mGy, DLP = ( 1312.81 ) mGycm TECHNIQUE: Transaxial images were obtained from the dome of the diaphragm to the symphysis pubis without oral contrast. IV 100mL Isovue-370 was administered. Sagittal and coronal images were reconstructed. Individualized dose optimization techniques were used for this CT. COMPARISON: None. FINDINGS: The visualized lung bases are unremarkable. The visualized portions of the heart are within normal limits. Normal liver. Normal gallbladder and extrahepatic biliary system. Normal spleen. Normal pancreas. Normal bilateral adrenal glands. Normal right kidney. Normal left kidney. Normal visualized stomach. Normal small intestine. Normal colon. The appendix is visualized and appears normal. Normal abdominal aorta. Normal inferior vena cava. Normal retroperitoneum. Normal urinary bladder. Normal abdominal wall. Normal osseous structures. CT/Abdomen/Pelvis W IV Cont ONLY IMPRESSION: Normal enhanced CT of the abdomen and pelvis. Electronically Signed: Murray Miner MD at 6:16 EDT Tel , Service support ,
--- NOTE | 2020-11-20 04:44 | EX.ED.DYSGE1 ---
HPI History of Present Illness Chief Complaint: Nausea/Vomiting Narrative Narrative: 65-year-old female presenting with nausea and vomiting. She states she has been having diarrhea for the last 3 days. Patient states that she usually vomits at night and this is more of a chronic issue. She states she has a history of umbilical hernia which is supposed to be repaired by Dr. Gentile at [facility] however, he cannot get her in for a month. He told her if she had any episodes of abdominal pain and nausea and vomiting she should return to the ER here at [facility]. She is complaining of some left lower quadrant abdominal pain. She states she had multiple episodes of diarrhea as well. She denies fever or chills. She does state that in her vomit she sometimes sees a small amount of blood tingeing. She denies giovana hematemesis. [facility] Medical History Anxiety Asthma Chronic pain Coronary artery disease Depression Depression Former smoker GERD (gastroesophageal reflux disease) Hypertension Irregular heart beat Irregular heart beat Migraines On home oxygen therapy PTSD (post-traumatic stress disorder) Seizures Stroke/cerebrovascular accident Home Medications albuterol sulfate 2 puff INHALATION Q6H PRN PRN 02/20/18 [History Last Taken 06/21/19 18:00] prazosin 4 mg PO QHS 03/13/19 [History Last Taken 06/19/19] calcium carbonate-vitamin D3 1 ea PO DAILY 06/13/19 [History Last Taken 06/19/19] metoprolol succinate 25 mg PO DAILY 07/08/19 [History Last Taken 07/21/19] divalproex 250 mg PO BIDCM 11/15/19 [History Last Taken Unknown] topiramate 200 mg PO BID 11/15/19 [History Last Taken Unknown] duloxetine 30 mg PO DAILY 05/27/20 [History Last Taken Unknown] lurasidone 1 tab PO DAILY 05/27/20 [History Last Taken Unknown] pantoprazole 40 mg PO DAILY 05/27/20 [History Last Taken Unknown] metformin 500 mg PO DAILY 09/02/20 [History Last Taken Unknown] ondansetron 4 mg PO Q8H #10 tab 09/11/20 [Rx Last Taken Unknown] ondansetron 4 mg PO Q8H PRN #10 tab 09/11/20 [Rx Last Taken Unknown] polyethylene glycol 3350 17 g PO DAILY #0 ea 09/19/20 [Rx Last Taken Unknown] psyllium husk (aspartame) [Metamucil Fiber Singles] 1 packet PO DAILY PRN PRN #0 ea 09/19/20 [Rx Last Taken Unknown] sennosides-docusate sodium [Stool Softener-Stimulant Laxat] 2 tab PO BID PRN PRN #1 tab 09/19/20 [Rx Last Taken Unknown] ondansetron 4 mg PO Q8H PRN PRN #10 tab 11/20/20 [Rx Last Taken Unknown] Allergy/AdvReac Type Severity Reaction Status Date / Time amoxicillin [From Augmentin] AdvReac Hives Verified 11/20/20 04:04 clavulanic acid AdvReac Hives Verified 11/20/20 04:04 [From Augmentin] sulfamethoxazole AdvReac Vomiting Verified 11/20/20 04:04 [From Bactrim] sumatriptan [From Imitrex] AdvReac Vomiting Verified 11/20/20 04:04 sumatriptan succinate AdvReac Vomiting Verified 11/20/20 04:04 [From Imitrex] trimethoprim [From Bactrim] AdvReac Vomiting Verified 11/20/20 04:04 BEE STING Allergy Anaphylaxis Uncoded 11/04/20 01:08 ANTI PSYCHOTICS AdvReac Other Uncoded 11/20/20 04:06 PAPER TAPE AdvReac Rash Uncoded 11/04/20 01:08 Family History Mother Hypertension Father Hypertension Surgical History H/O hand surgery H/O knee surgery History of cholecystectomy History of left heart catheterization (06/23/19) Social History household members: none Smoking Status: Former smoker alcohol intake: never substance use type: does not use ROS ROS ED Constitutional Constitutional ED: Denies chills or fever(s) Eyes Eyes: Denies blurry vision or diplopia ENT ENT ED: Denies rhinorrhea or sore throat Cardiovascular Cardiovascular: Denies chest pain or palpitations Respiratory/Chest Respiratory/Chest: Denies cough, dyspnea or sputum Gastrointestinal Gastrointestinal: Reports abdominal pain, diarrhea, nausea and vomiting Genitourinary Genitourinary ED: Denies dysuria or hematuria Musculoskeletal Musculoskeletal: Denies arthralgias or myalgias Integumentary Denies abscess or rash Neurologic Neurologic: Denies headache(s) or weakness Psychiatric Psychiatric: Denies anxiety or depression EXAM Physical Exam Const Vital Signs: 11/20/20 04:01 Temperature 97.6 F L Temperature Source Temporal Pulse Rate 76 Respiratory Rate 16 Blood Pressure 101/62 Blood Pressure Mean 75 Pulse Ox 95 Oxygen Delivery Method Room Air Positive obese General Appearance ED: NAD Nutritional Appearance: obese HEENT Reports moist mucous membranes Negative for trauma Eyes PERRL and EOMs intact bilaterally General Eye ED: Negative for pale conjunctiva or scleral icterus Resp normal respiratory effort and clear to auscultation bilaterally Cardio regular rate and regular rhythm GI GI Narrative: Tenderness to palpation left lower quadrant. Abdomen is nonperitoneal. Neuro oriented x3 and CN's II-XII intact bilaterally Sensorium / Orientation: alert Skin no rashes or lesions noted and no wounds MDM MDM MDM Narrative Medical decision making narrative: Patient presenting with nausea/vomiting. She states she saw some blood tingeing in her's saliva. She has tenderness to palpation in the left lower quadrant. CBC shows white blood cell count 8.4, hemoglobin 12.2, crit 37.9, platelets 232. Renal function and electrolytes are normal. LFTs are also normal. Urinalysis negative for infection. Patient CT of the abdomen pelvis with IV contrast shows no acute intra-abdominal pathology. Patient will be discharged home in stable condition. Impression: 1. Nausea/vomiting 2. Abdominal pain Lab Data Labs: Laboratory Results - last 24 hr 11/20/20 11/20/20 11/20/20 04:15 04:40 04:40 WBC 8.4 RBC 3.99 L Hgb 12.2 Hct 37.9 MCV 95.0 MCH 30.6 MCHC 32.2 RDW Std Deviation 47.6 H RDW Coeff of Lenora 13.5 Plt Count 232 MPV 11.5 Immature Gran % (Auto) 0.400 Neut % (Auto) 49.9 Lymph % (Auto) 30.0 [place] % (Auto) 13.8 H Eos % (Auto) 5.1 H Baso % (Auto) 0.8 Absolute Neuts (auto) 4.2 Absolute Lymphs (auto) 2.52 Nucleated RBC % 0 Sodium 140 Potassium 3.2 L Chloride 106 Carbon Dioxide 27.0 Anion Gap 7 BUN 12 Creatinine 0.68 Estim Creat Clear Calc 66.10 Est GFR (MDRD) Af Amer 113 Est GFR (MDRD) Non-Af 93 BUN/Creatinine Ratio 17.8 Glucose 114 H Calcium 8.2 L Total Bilirubin 0.20 AST 11 L ALT 19 Alkaline Phosphatase 70 Total Protein 6.2 L Albumin 3.0 L Globulin 3.2 Albumin/Globulin Ratio 0.9 Lipase 111 Urine Color Yellow Urine Clarity Clear Urine pH 6.0 Ur Specific [place] 1.015 Urine Protein Negative Urine Glucose (UA) Normal Urine Ketones Negative Urine Occult Blood Negative Urine Nitrite Negative Urine Bilirubin Negative Urine Urobilinogen Normal Ur Leukocyte Esterase 25 H Urine RBC 0-5 SEEN Urine WBC Not Reportable Ur Squamous Epith Cells 0-5 SEEN Urine Bacteria RARE Urine Mucus 0 SEEN Radiography Diagnostic Testing: Radiology Impression Abdomen/Pelvis CT 11/20/20 04:38 IMPRESSION: Normal enhanced CT of the abdomen and pelvis. Electronically Signed: Murray Miner MD at 6:16 EDT Tel , Service support , Discharge Plan Triage Chief Complaint: Nausea/Vomiting ED Provider: Alexander Serrato Dx/Rx/DC Orders Instructions: ED Abdominal Pain Unkn Cause Fem, ED Diet for Vomiting or ... Prescriptions: New ondansetron 4 mg tablet,disintegrating 4 mg PO Q8H PRN PRN (Reason: Nausea) Qty: 10 RF: 0 No Action albuterol sulfate 1 INHALER inhaler 2 puff inhalation Q6H PRN PRN (Reason: Shortness Of Breath) RF: 0 prazosin 2.000 capsule 4 mg PO QHS RF: 0 calcium carbonate-vitamin D3 1 EACH tablet 1 ea PO DAILY RF: 0 metoprolol succinate 25 MG tablet extended release 24 hr 25 mg PO DAILY RF: 0 divalproex 250 MG tablet 250 mg PO BIDCM RF: 0 topiramate 200 MG tablet 200 mg PO BID RF: 0 pantoprazole 40 MG tablet 40 mg PO DAILY RF: 0 lurasidone 40 MG tablet 1 tab PO DAILY RF: 0 duloxetine 30 MG capsule,delayed release(DR/EC) 30 mg PO DAILY RF: 0 metformin 500 mg tablet 500 mg PO DAILY RF: 0 ondansetron 4 mg tablet,disintegrating 4 mg PO Q8H Qty: 10 RF: 0 ondansetron 4 mg tablet,disintegrating 4 mg PO Q8H PRN (Reason: nausea and vomiting) Qty: 10 RF: 0 polyethylene glycol 3350 17 gram Powder In Packet 17 g PO DAILY Qty: 0 RF: 0 sennosides-docusate sodium [Stool Softener-Stimulant Laxat] 8.6-50 mg Tablet 2 tab PO BID PRN PRN (Reason: Constipation) Qty: 1 RF: 0 Metamucil Fiber Singles 3.4 gram Powder In Packet 1 packet PO DAILY PRN PRN (Reason: Constipation) Qty: 0 RF: 0 Primary Care Provider: Fatoumata Rosen Referrals: Fatoumata Rosen MD [Primary Care Provider] -
[2020-11-20 04:46] LABS: Absolute Lymphocyte Count 2.52 X10^3/uL (0.83-4.51); Absolute Neutrophil Count 4.2 X10^3/uL (2.0-7.7); Basophil# 0.07 X10^3/uL; Basophil% 0.8 % (0-1); Eosinophil# 0.43 X10^3/uL; Eosinophils% 5.1 % (0-5); Hematocrit 37.9 % (37-47); Hemoglobin 12.2 g/dL (12.0-15.0); Lymphocyte # 2.52 X10^3/ul (0.83-4.51); Mean Corp Hgb Conc 32.2 g/dL (32-36); Mean Corpuscular Hgb 30.6 pg (27.0-32.0); Mean Platelet Vol. 11.5 fl (6.2-12.0); Monocyte# 1.16 X10^3/uL; Monocyte% 13.8 % (0-10); NRBC Flagged by Analyzer 0 % (0-5); Neutrophil # 4.18 X10^3/uL (2.7-7.7); Neutrophil % 49.9 % (47-70); Platelet Count 232 K/mm3 (150-450); RBC Distribution Width CV 13.5 % (11.6-14.6); RBC Distribution Width SD 47.6 fl (35.1-43.9); Red Blood Count 3.99 M/mm3 (4.2-5.4); White Blood Count 8.4 K/mm3 (4.4-11.0)
[2020-11-20] MEDS: Ondansetron 4 MG/2 ML Vial IV (04:48)
[2020-11-20] MEDS: Morphine 4 MG/ML Syringe IV (04:52)
[2020-11-20 05:12] LABS: Glucose, Dipstick Normal (Normal); Ketone-Dipstick Negative (Negative); Leukocyte Esterase-Dipstick 25 /ul (Negative); Mucous, Urine 0 SEEN /hpf (<or=2+); Nitrite-Dipstick Negative (Negative); Occult Blood-Urine Negative /ul (Negative); Protein-Dipstick Negative (Negative); Specific Gravity, Urine 1.015 (1.002-1.030); Urine Bilirubin Dipstick Negative (Negative); Urine Urobilinogen Normal (Normal)
[2020-11-20 05:13] LABS: Color, Urine Yellow (Yellow); Urine Clarity Clear (Clear)
[2020-11-20 05:33] LABS: Bacteria RARE /hpf (None Seen); Red Blood Cells-Urine 0-5 SEEN /hpf (0-5); Squamous Epithelial Cells - UA 0-5 SEEN /hpf (5-10)
[2020-11-20 05:36] LABS: ALB/GLOB Ratio 0.9 RATIO (0.9-2.4); AST(SGOT) 11 U/L (15-37); Alanine Aminotransfer ALT/SGPT 19 U/L (13-56); Alkaline Phosphatase 70 U/L (45-117); Anion Gap 7 (5-15); BUN 12 mg/dL (7-18); BUN/Creat Ratio 17.8 RATIO (10-20); Calcium,Total 8.2 mg/dL (8.5-10.1); Chloride 106 mmol/L (98-107); Creatinine, Serum 0.68 mg/dL (0.55-1.02); EST Glomerular Filtration Rate 93 mL/min (>60); Est Glom Filt Rate - Afr Amer 113 mL/min (>60); Globulin 3.2 g/dL (2.2-4.2); Glucose 114 mg/dL (74-106); Lipase 111 U/L (73-393); Potassium 3.2 mmol/L (3.5-5.1); Protein, Total 6.2 g/dL (6.4-8.2); Sodium Level 140 mmol/L (136-145)
== END 2020-11-20 07:13 | disposition home or self-care (01) ==
LOC: ED 05:35
PROVIDERS: Emergency Provider Student in an Organized Health Care Education/Training Program; PCP Internal Medicine
DX: R11.2 Nausea with vomiting, unspecified (principal); R10.32 Left lower quadrant pain; I25.10 Atherosclerotic heart disease of native coronary artery without angina pectoris; Z87.891 Personal history of nicotine dependence
CPT/HCPCS: 74177; 80053; 81001; 83690; 85025; 96374; 96375; 99285; A4216; J2405

== ENCOUNTER 2020-11-24 13:38 | Emergency (ER) | payer MEDICARE, MEDICAID, SELFPAY ==
[2020-11-24 14:15] VITALS: TEMP 36.5; BMI 100.7
--- NOTE | 2020-11-24 14:19 | ED.RN ---
pt left prior to being triaged. pt brought in by [facility], was informed there multiple other people to be triaged before her. pt called for ride. stated to [place] door screener that she was going to [place].
== END 2020-11-24 14:19 | disposition left against medical advice (07) ==
LOC: ED 15:15
PROVIDERS: PCP Internal Medicine
DX: Z53.21 Procedure and treatment not carried out due to patient leaving prior to being seen by health care provider (principal)
CPT/HCPCS: 99281

== ENCOUNTER 2020-11-27 02:59 | Emergency (ER) | payer MEDICARE, MEDICAID, SELFPAY ==
[2020-11-27 03:01] VITALS: BP 122/57; PULSE 81; RESP 18; TEMP 37.2; O2SAT 94; BMI 44.5
--- NOTE | 2020-11-27 03:29 | EKG12_ITS ---
Test Reason : Blood Pressure : / mmHG Vent. Rate : 075 BPM Atrial Rate : 075 BPM P-R Int : 214 ms QRS Dur : 074 ms QT Int : 398 ms P-R-T Axes : 041 -14 014 degrees QTc Int : 444 ms Sinus rhythm with 1st degree A-V block Inferior infarct , age undetermined Abnormal ECG Confirmed by CATHY ROJAS, LUIS M ([id number]), manager editorial HERMAN DOWNS ([id number]) on 12/01/2020 1:22:35 PM Referred By: KENNY Confirmed By:LUIS M MORGAN MD
--- NOTE | 2020-11-27 03:34 | EDS_ITS ---
HPI History of Present Illness Chief Complaint: Dizziness Informant: patient Onset/Context/Timing Onset: Hours (2) Context: Gradual Onset Timing: Continuous Quality: Lightheaded Location: Generalized Worsened by: Nothing Relieved by: Rest Narrative Narrative: Patient presents with dizziness that began approxi-2 hours prior to arrival. Patient describes this as a lightheaded feeling. Patient is better when she is at rest. Patient admits to a mild headache. Patient admits to some shortness of breath and cough. Patient also admits to some right-sided chest pain. Patient denies any fevers or chills. Patient denies any vertigo or spinning sensations. Patient denies any hearing changes. Patient denies any nausea or vomiting. [facility] Medical History Anxiety Asthma Chronic pain Coronary artery disease Depression Depression Former smoker GERD (gastroesophageal reflux disease) History of fracture of hand Hypertension Irregular heart beat Irregular heart beat Migraines On home oxygen therapy PTSD (post-traumatic stress disorder) Seizures Stroke/cerebrovascular accident Home Medications albuterol sulfate 2 puff INHALATION Q6H PRN PRN 02/20/18 [History Last Taken 06/21/19 18:00] calcium carbonate-vitamin D3 1 ea PO DAILY 06/13/19 [History Last Taken 06/19/19] metoprolol succinate 25 mg PO DAILY 07/08/19 [History Last Taken 07/21/19] divalproex 250 mg PO BIDCM 11/15/19 [History Last Taken Unknown] topiramate 200 mg PO BID 11/15/19 [History Last Taken Unknown] duloxetine 30 mg PO DAILY 05/27/20 [History Last Taken Unknown] lurasidone 1 tab PO DAILY 05/27/20 [History Last Taken Unknown] pantoprazole 40 mg PO DAILY 05/27/20 [History Last Taken Unknown] metformin 500 mg PO DAILY 09/02/20 [History Last Taken Unknown] ondansetron 4 mg PO Q8H PRN #10 tab 09/11/20 [Rx Last Taken Unknown] psyllium husk (aspartame) [Metamucil Fiber Singles] 1 packet PO DAILY PRN PRN #0 ea 09/19/20 [Rx Last Taken Unknown] Allergy/AdvReac Type Severity Reaction Status Date / Time acetaminophen [From Tylenol] AdvReac Upset Verified 11/27/20 04:33 Stomach amoxicillin [From Augmentin] AdvReac Hives Verified 11/27/20 03:01 clavulanic acid AdvReac Hives Verified 11/27/20 03:01 [From Augmentin] sulfamethoxazole AdvReac Vomiting Verified 11/27/20 03:01 [From Bactrim] sumatriptan [From Imitrex] AdvReac Vomiting Verified 11/27/20 03:01 sumatriptan succinate AdvReac Vomiting Verified 11/27/20 03:01 [From Imitrex] trimethoprim [From Bactrim] AdvReac Vomiting Verified 11/27/20 03:01 BEE STING Allergy Anaphylaxis Uncoded 11/27/20 03:01 ANTI PSYCHOTICS AdvReac Other Uncoded 11/27/20 03:01 PAPER TAPE AdvReac Rash Uncoded 11/27/20 03:01 Family History Mother Hypertension Father Hypertension Surgical History H/O hand surgery H/O knee surgery History of cholecystectomy History of left heart catheterization (06/23/19) Social History household members: none Smoking Status: Former smoker alcohol intake: never substance use type: does not use ROS ROS ED Constitutional Constitutional ED: Denies chills or fever(s) Eyes Eyes: Denies blurry vision or change in vision ENT ENT ED: Reports rhinorrhea; Denies sore throat Cardiovascular Cardiovascular: Denies chest pain or palpitations Respiratory/Chest Respiratory/Chest: Reports cough and dyspnea Gastrointestinal Gastrointestinal: Denies nausea or vomiting Genitourinary Genitourinary ED: Denies dysuria or hematuria Musculoskeletal Musculoskeletal: Denies back pain or neck pain Integumentary Reports rash; Denies abscess Neurologic Neurologic: Reports headache(s); Denies weakness Allergic/Immunologic Allergic/Immunologic ED: Denies mouth swelling or urticaria EXAM Physical Exam Const Vital Signs: 11/27/20 03:01 11/27/20 03:51 11/27/20 03:54 Temperature 99.0 F Temperature Source Temporal Pulse Rate 81 Pulse Rate [Lying] 69 Pulse Rate [Sitting] 72 Pulse Rate [Standing] 76 Respiratory Rate 18 Respiratory Effort Normal Respiratory Pattern Normal Blood Pressure 122/57 H Blood Pressure [Lying] 135/62 H Blood Pressure [Sitting] 105/86 H Blood Pressure [Standing] 126/79 H Blood Pressure Mean 78 Blood Pressure Mean [Lying] 86 Blood Pressure Mean [Sitting] 92 Blood Pressure Mean [Standing] 94 Pulse Ox 94 Oxygen Delivery Method Room Air Positive well nourished and well developed General Appearance ED: well developed HEENT Reports moist mucous membranes Neck supple and no JVD Resp normal respiratory effort and clear to auscultation bilaterally Cardio regular rate, regular rhythm and no murmurs GI normal to inspection, nondistended, normoactive bowel sounds and non-tender Palpation: soft Extremity normal to inspection General Extremety ED: Negative for edema or tenderness General Extremity: Negative for edema Neuro oriented x3, CN's II-XII intact bilaterally and no sensory deficits noted Sensorium / Orientation: alert Motor Exam: strength 5/5 throughout Psych mental status grossly normal MDM MDM MDM Narrative Medical decision making narrative: EKG was obtained. On my interpretation, it showed a normal sinus rhythm with a first-degree AV block with a rate of 69. AL interval, QRS interval, and QTc intervals were all normal. [place] was normal. There are no acute ST or T wave changes. Portable 1 view chest x-ray was obtained. On my interpretation, lung rey are clear. There is normal cardiac silhouette. Bony thorax is normal. There is no acute process noted. Radiologist also interpreted the x-ray and agrees. CBC was within normal limits. Comprehensive metabolic profile showed a mild hypokalemia of 3.3. Urinalysis does not show any evidence of urinary tract infection. Orthostatic vital signs were obtained and were within normal limits. Patient requested a medication for pain. Patient was ordered 1 g of Tylenol. Patient refused this. Patient states her insurance would not cover Tylenol because it is not a pain medication. Patient was advised that this is untrue. Patient still refused. Patient requested [place]. Patient was given 1 dose of [place] here. Patient was not given a prescription for any [place]. Patient was advised that she would need to get any prescriptions for pain medication from her primary care physician. Patient understood and was agreeable with the plan. Patient was instructed to follow-up with her primary care physician as scheduled. All questions were answered. Lab Data Attestation: I reviewed the patient's lab results. Labs: Laboratory Results - last 24 hr 11/27/20 11/27/20 11/27/20 03:46 03:46 04:21 WBC 9.9 RBC 3.96 L Hgb 12.0 Hct 37.4 MCV 94.4 MCH 30.3 MCHC 32.1 RDW Std Deviation 47.8 H RDW Coeff of [place]ora 13.9 Plt Count 308 MPV 10.6 Immature Gran % (Auto) 0.500 Neut % (Auto) 52.3 Lymph % (Auto) 28.0 [place] % (Auto) 13.6 H Eos % (Auto) 4.6 Baso % (Auto) 1.0 Absolute Neuts (auto) 5.2 Absolute Lymphs (auto) 2.76 Nucleated RBC % 0 Sodium 139 Potassium 3.3 L Chloride 106 Carbon Dioxide 28.0 Anion Gap 5 BUN 11 Creatinine 0.88 Estim Creat Clear Calc 51.08 Est GFR (MDRD) Af Amer 84 Est GFR (MDRD) Non-Af 69 BUN/Creatinine Ratio 12.5 Glucose 133 H Calcium 8.1 L Total Bilirubin 0.20 AST 20 ALT 24 Alkaline Phosphatase 70 Troponin I High Sens 4.0 Total Protein 6.9 Albumin 3.1 L Globulin 3.8 Albumin/Globulin Ratio 0.8 L Urine Color Yellow Urine Clarity Clear Urine pH 6.0 Ur Specific [place] 1.015 Urine Protein Negative Urine Glucose (UA) Normal Urine Ketones Negative Urine Occult Blood Negative Urine Nitrite Negative Urine Bilirubin Negative Urine Urobilinogen Normal Ur Leukocyte Esterase Negative Urine RBC 0 SEEN Urine WBC 0-5 SEEN Ur Squamous Epith Cells 0-5 SEEN Urine Bacteria 0 SEEN Urine Mucus 0 SEEN Radiography Chest X-Ray - ED: 1 View, Read by ED Physician, Read by Radiologist and Normal Diagnostic Testing: Radiology Impression Chest X-Ray 11/27/20 03:54 IMPRESSION: Negative x-ray examination of the chest. No interval change. Electronically Signed: Rigoberto Cabrera MD at 4:36 EDT Tel , Service support , EKG Initial EKG: Attestation: I personally reviewed and interpreted this EKG as follows: Interpretation: Sinus Rhythm (With first-degree AV block with a rate of 69) and No Acute Injury Pattern Prior EKG tracings: available for review Prior: Unchanged (11/04/2020) Discharge Plan Triage Chief Complaint: Dizziness Other Complaint: Rash ED Provider: Jorje Westbrook Dx/Rx/DC Orders Clinical Impression: Dizziness, nonspecific Instructions: ED Dizziness, Uncertain Cause Prescriptions: No Action albuterol sulfate 1 INHALER inhaler 2 puff inhalation Q6H PRN PRN (Reason: Shortness Of Breath) RF: 0 calcium carbonate-vitamin D3 1 EACH tablet 1 ea PO DAILY RF: 0 metoprolol succinate 25 MG tablet extended release 24 hr 25 mg PO DAILY RF: 0 divalproex 250 MG tablet 250 mg PO BIDCM RF: 0 topiramate 200 MG tablet 200 mg PO BID RF: 0 pantoprazole 40 MG tablet 40 mg PO DAILY RF: 0 lurasidone 40 MG tablet 1 tab PO DAILY RF: 0 duloxetine 30 MG capsule,delayed release(DR/EC) 30 mg PO DAILY RF: 0 metformin 500 mg tablet 500 mg PO DAILY RF: 0 ondansetron 4 mg tablet,disintegrating 4 mg PO Q8H PRN (Reason: nausea and vomiting) Qty: 10 RF: 0 Metamucil Fiber Singles 3.4 gram Powder In Packet 1 packet PO DAILY PRN PRN (Reason: Constipation) Qty: 0 RF: 0 Primary Care Provider: Fatoumata Rosen Referrals: Fatoumata Rosen MD [Primary Care Provider] - [facility] appointment Disposition Disposition: Home, Self Care
[2020-11-27 03:54] VITALS: BP 105/86; BP 126/79; BP 135/62; PULSE 69; PULSE 72; PULSE 76
--- NOTE | 2020-11-27 03:54 | RAD_ITS ---
STUDY: X-RAY CHEST REASON FOR EXAM: Female, 65 years old. Cough TECHNIQUE: AP COMPARISON: 09/19/2020 FINDINGS: The lungs are clear and expanded. There is no demonstrated pleural abnormality. Normal size heart. Normal mediastinum and ita. Normal visualized pulmonary arteries. Normal visualized aortic arch and descending thoracic aorta. Normal visualized thoracic spine. Normal visualized ribs, clavicles, and shoulders. There is no demonstrated abnormality of the visualized soft tissue structures of the upper abdomen. RAD/Chest 1 View (Portable) IMPRESSION: Negative x-ray examination of the chest. No interval change. Electronically Signed: Rigoberto Cabrera MD at 4:36 EDT Tel , Service support ,
[2020-11-27] MEDS: 0.9% Normal Saline 1,000 ML 1000 ML IV (04:04)
--- NOTE | 2020-11-27 04:14 | ED.RN ---
PER DIRECTION OF CHIEF MATE, WERO, PTS SERVICE DOG SCARLET WAS PLACED IN THE HAZMAT ROOM IN COMPLIANCE WITH CURRENT POLICIES FROM HR DEPARTMENT. PT WAS AGREEABLE TO THE SEPARATION.
[2020-11-27 04:22] LABS: Absolute Lymphocyte Count 2.76 X10^3/uL (0.83-4.51); Absolute Neutrophil Count 5.2 X10^3/uL (2.0-7.7); Eosinophil# 0.45 X10^3/uL; Eosinophils% 4.6 % (0-5); Hematocrit 37.4 % (37-47); Lymphocyte # 2.76 X10^3/ul (0.83-4.51); Mean Corp Hgb Conc 32.1 g/dL (32-36); Mean Corpuscular Hgb 30.3 pg (27.0-32.0); Mean Corpuscular Volume 94.4 fL (81-99); Mean Platelet Vol. 10.6 fl (6.2-12.0); Monocyte# 1.34 X10^3/uL; Monocyte% 13.6 % (0-10); NRBC Flagged by Analyzer 0 % (0-5); Neutrophil # 5.15 X10^3/uL (2.7-7.7); Neutrophil % 52.3 % (47-70); Platelet Count 308 K/mm3 (150-450); RBC Distribution Width CV 13.9 % (11.6-14.6); RBC Distribution Width SD 47.8 fl (35.1-43.9); Red Blood Count 3.96 M/mm3 (4.2-5.4); White Blood Count 9.9 K/mm3 (4.4-11.0)
[2020-11-27 04:27] LABS: Bacteria 0 SEEN /hpf (None Seen); Mucous, Urine 0 SEEN /hpf (<or=2+); Red Blood Cells-Urine 0 SEEN /hpf (0-5)
[2020-11-27 04:28] LABS: Color, Urine Yellow (Yellow); Glucose, Dipstick Normal (Normal); Ketone-Dipstick Negative (Negative); Leukocyte Esterase-Dipstick Negative /ul (Negative); Nitrite-Dipstick Negative (Negative); Occult Blood-Urine Negative /ul (Negative); Protein-Dipstick Negative (Negative); Specific Gravity, Urine 1.015 (1.002-1.030); Urine Bilirubin Dipstick Negative (Negative); Urine Clarity Clear (Clear); Urine Urobilinogen Normal (Normal)
[2020-11-27 04:40] LABS: ALB/GLOB Ratio 0.8 RATIO (0.9-2.4); AST(SGOT) 20 U/L (15-37); Alanine Aminotransfer ALT/SGPT 24 U/L (13-56); Albumin, Serum 3.1 g/dL (3.2-5.0); Alkaline Phosphatase 70 U/L (45-117); Anion Gap 5 (5-15); BUN 11 mg/dL (7-18); BUN/Creat Ratio 12.5 RATIO (10-20); Calcium,Total 8.1 mg/dL (8.5-10.1); Chloride 106 mmol/L (98-107); Creatinine, Serum 0.88 mg/dL (0.55-1.02); EST Glomerular Filtration Rate 69 mL/min (>60); Est Glom Filt Rate - Afr Amer 84 mL/min (>60); Estimated Creatinine Clearance 51.08 ml/min; Globulin 3.8 g/dL (2.2-4.2); Glucose 133 mg/dL (74-106); Potassium 3.3 mmol/L (3.5-5.1); Protein, Total 6.9 g/dL (6.4-8.2); Sodium Level 139 mmol/L (136-145)
[2020-11-27 04:53] LABS: Squamous Epithelial Cells - UA 0-5 SEEN /hpf (5-10); White Blood Cells 0-5 SEEN /hpf (0-5)
[2020-11-27] MEDS: HYDROcodone Bitartrate/Apap 5/325 Tablet PO (04:56)
--- NOTE | 2020-11-27 05:00 | ED.RN ---
Patient declines the potassium and says she cannot swallow it and refused to try and take it half or half in apple sauce. She states she is aware the potassium can affect her heart and cause abnormal heart rhythm and states she is going to eat bananas and states her stomach is sensitive. Says she wants nystatin cream for under her left breast and wants a cream for it and forgot to say that when the doctor was in.
[2020-11-27 05:13] VITALS: BP 141/59; PULSE 74; RESP 16; O2SAT 98
--- NOTE | 2020-11-27 05:14 | ED.RN ---
Patient took her ambien bottle back and had this nurse sit it next to her purse while she called [employer] or a ride. Bottle is sitting next to the purse on top of linen cart. Will have another nurse confirm patient has possession of the bottle.
--- NOTE | 2020-11-27 05:20 | ED.RN ---
THIS RN CONFIRMS PATIENT HAS POSSESSION OF FILLED AMBIEN BOTTLE.
--- NOTE | 2020-11-27 05:30 | ED.RN ---
Patient is in the room, talking on phone and no longer c/o nausea and not using her emesis bag. Emesis bag empty. She is talking with the person on the phone normally and responding back with this nurse and charge nurse regarding getting picked up as she talked to [employer] and now calling taxis.
== END 2020-11-27 08:12 | disposition home or self-care (01) ==
LOC: ED 05:03
PROVIDERS: Emergency Provider Emergency Medicine; PCP Internal Medicine
DX: R42 Dizziness and giddiness (principal); R06.02 Shortness of breath; R51.9 Headache, unspecified; R21 Rash and other nonspecific skin eruption; J45.909 Unspecified asthma, uncomplicated; I25.10 Atherosclerotic heart disease of native coronary artery without angina pectoris; K21.9 Gastro-esophageal reflux disease without esophagitis; I10 Essential (primary) hypertension; Z79.84 Long term (current) use of oral hypoglycemic drugs; Z87.891 Personal history of nicotine dependence; Z79.899 Other long term (current) drug therapy; Z99.81 Dependence on supplemental oxygen
CPT/HCPCS: 71045; 80053; 81001; 84484; 85025; 93005; J7030; A4216

== ENCOUNTER 2020-11-27 15:29 | Emergency (ER) | payer MEDICARE, MEDICAID, SELFPAY ==
[2020-11-27 03:01] VITALS: BMI 44.5
[2020-11-27 15:36] VITALS: BP 118/78; PULSE 76; RESP 17; TEMP 36.7; O2SAT 98; BMI 43.1
--- NOTE | 2020-11-27 15:58 | CT_ITS ---
EXAM: CT ANGIOGRAPHY CHEST WITHOUT AND WITH INTRAVENOUS CONTRAST : 1955 CLINICAL INDICATION: Pleuritic chest pain TECHNIQUE: Helically acquired angiography images were obtained of the chest without and with intravenous contrast. This CT exam was performed using one or more of the following dose reduction techniques: automated exposure control, adjustment of the mA and/or kV according to patient size, and/or use of iterative reconstruction technique. This report was created using [employer] report generation technology. MIP reconstructed images were created and reviewed. CONTRAST: IV 100mL Isovue-370 COMPARISON: None. FINDINGS: PULMONARY ARTERIES: Unremarkable. Normal in caliber. No evidence of pulmonary embolism. AORTA: Unremarkable. Normal in caliber. No evidence of dissection. GREAT VESSELS OF AORTIC ARCH: Unremarkable. Normal in caliber. No evidence of dissection. LUNGS AND PLEURAL SPACES: Unremarkable. No mass. No consolidation or edema. No pleural effusion or thickening. No pneumothorax. HEART: Unremarkable. Heart size is normal. No pericardial effusion. No signs of right heart strain. MEDIASTINUM: Unremarkable. No mediastinal or hilar adenopathy. Esophagus is unremarkable. No hiatal hernia. THYROID: Unremarkable. No thyroid lesions. BONES/JOINTS: Unremarkable. No suspicious lytic or blastic abnormality. CT/CTA Chest W/WO Contrast IMPRESSION: Negative CTA chest. Individualized dose optimization techniques were used for this CT. at 1753 Reported and signed by: Earle Downey MD Electronically Signed: Earle Downey MD at 17:52 EDT Tel , Service support ,
--- NOTE | 2020-11-27 16:03 | EDS_ITS ---
HPI History of Present Illness Chief Complaint: Chest Other Informant: patient Narrative Narrative: Patient is a 65-year-old female who presents emerge department right- sided chest discomfort. She cannot give me a definitive timeline for how long this has been going on. She actually was seen in the emergency department earlier today for a separate complaint. She was feeling dizzy at that time. She is currently denying this now. She is having right arm pain as well as losing sensation. The pain does go into her right back. She states that it hurts to lift her arm. Taking a deep breath seems to aggravate her chest pain. She thinks that she either has a knot or a clot in her lung. She has no history of thromboembolism. No history of DVT. She denies any recent travel, no recent surgery. She is not a blood thinning medications. She denies any leg swelling or calf pain. She denies a cough. No fevers or chills. She states that she has never had this happen before. She has not been taking anything for it. She describes the pain as moderate. She denies any headache or neck stiffness. No vision changes. No weakness or loss of sensation in any other extremity. [facility] Medical History Anxiety Asthma Chronic pain Coronary artery disease Depression Depression Former smoker GERD (gastroesophageal reflux disease) History of fracture of hand Hypertension Irregular heart beat Irregular heart beat Migraines On home oxygen therapy PTSD (post-traumatic stress disorder) Seizures Stroke/cerebrovascular accident Home Medications albuterol sulfate 2 puff INHALATION Q6H PRN PRN 02/20/18 [History Last Taken 06/21/19 18:00] calcium carbonate-vitamin D3 1 ea PO DAILY 06/13/19 [History Last Taken 06/19/19] metoprolol succinate 25 mg PO DAILY 07/08/19 [History Last Taken 07/21/19] divalproex 250 mg PO BIDCM 11/15/19 [History Last Taken Unknown] topiramate 200 mg PO BID 11/15/19 [History Last Taken Unknown] duloxetine 30 mg PO DAILY 05/27/20 [History Last Taken Unknown] lurasidone 1 tab PO DAILY 05/27/20 [History Last Taken Unknown] pantoprazole 40 mg PO DAILY 05/27/20 [History Last Taken Unknown] metformin 500 mg PO DAILY 09/02/20 [History Last Taken Unknown] ondansetron 4 mg PO Q8H PRN #10 tab 09/11/20 [Rx Last Taken Unknown] psyllium husk (aspartame) [Metamucil Fiber Singles] 1 packet PO DAILY PRN PRN #0 ea 09/19/20 [Rx Last Taken Unknown] Allergy/AdvReac Type Severity Reaction Status Date / Time acetaminophen [From Tylenol] AdvReac Upset Verified 11/27/20 04:33 Stomach amoxicillin [From Augmentin] AdvReac Hives Verified 11/27/20 03:01 clavulanic acid AdvReac Hives Verified 11/27/20 03:01 [From Augmentin] sulfamethoxazole AdvReac Vomiting Verified 11/27/20 03:01 [From Bactrim] sumatriptan [From Imitrex] AdvReac Vomiting Verified 11/27/20 03:01 sumatriptan succinate AdvReac Vomiting Verified 11/27/20 03:01 [From Imitrex] trimethoprim [From Bactrim] AdvReac Vomiting Verified 11/27/20 03:01 BEE STING Allergy Anaphylaxis Uncoded 11/27/20 03:01 ANTI PSYCHOTICS AdvReac Other Uncoded 11/27/20 03:01 PAPER TAPE AdvReac Rash Uncoded 11/27/20 03:01 Family History Mother Hypertension Father Hypertension Surgical History H/O hand surgery H/O knee surgery History of cholecystectomy History of left heart catheterization (06/23/19) Social History household members: none Smoking Status: Former smoker alcohol intake: never substance use type: does not use ROS ROS ED Constitutional Constitutional ED: Denies chills or fever(s) Eyes Eyes: Denies change in vision ENT ENT ED: Denies epistaxis or rhinorrhea Cardiovascular Cardiovascular: Reports chest pain; Denies palpitations Respiratory/Chest Respiratory/Chest: Denies cough, dyspnea or dyspnea on exertion Gastrointestinal Gastrointestinal: Denies abdominal pain, diarrhea, nausea or vomiting Genitourinary Genitourinary ED: Denies dysuria, hematuria or urinary frequency Musculoskeletal Musculoskeletal: Reports other Details: Right arm pain ; Denies back pain or neck pain Integumentary Denies rash Neurologic Neurologic: Reports paresthesias; Denies dizziness, headache(s) or weakness EXAM Physical Exam Const Vital Signs: 11/27/20 15:36 Temperature 98.1 F Temperature Source Oral Pulse Rate 76 Respiratory Rate 17 Respiratory Effort Normal Non-Labored Respiratory Pattern Normal Blood Pressure 118/78 Blood Pressure Mean 91 Pulse Ox 98 Oxygen Delivery Method Room Air Positive well nourished and well developed General Appearance ED: well developed and NAD HEENT Reports normocephalic, head/scalp atraumatic and moist mucous membranes Eyes PERRL and EOMs intact bilaterally Neck supple General: Negative for tenderness Chest Wall inspection of chest normal Resp normal respiratory effort and clear to auscultation bilaterally Auscultation: Negative for rales, rhonchi or wheezes Cardio regular rate, regular rhythm and no murmurs GI normal to inspection, nondistended, normoactive bowel sounds and non-tender Palpation: soft; Negative for guarding or rebound tenderness present Extremity normal to inspection Extremity Narrative: Right arm has full muscle strength. Full range of motion. Sensation intact. 2+ radial pulse. 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 General Extremety ED: Negative for edema or tenderness General Extremity: Negative for edema Neuro CN's II-XII intact bilaterally and no sensory deficits noted Sensorium / Orientation: alert Motor Exam: strength 5/5 throughout Psych mental status grossly normal Skin no rashes or lesions noted MDM MDM MDM Narrative Medical decision making narrative: Patient presents the ED for right-sided chest pain. She is also having right arm pain and loss of sensation although she has sensation intact on my physical exam. On arrival to the ED vital signs within normal limits. She is satting 98% on room air. She is not tachycardic. This is a bounce back patient as she was seen here earlier this morning for dizziness. She did have a cardiac work-up performed at that time. We will repeat a troponin, EKG and CT scan of the chest. Patient's troponin did not elevate from previous lab draw. She was complaining of pleuritic chest pain and she is a bounce back so CT imaging was performed. This did not reveal any acute cardiopulmonary abnormality. Rest of her lab work is unremarkable. Patient offered a Tylenol but she refused this. She has remained stable throughout ED stay. Recommend symptomatic treatment. She is to follow-up with her PCP. Return precautions are reviewed. She understands and is agreeable this plan. All questions were answered. Lab Data Labs: Laboratory Results - last 24 hr 11/27/20 17:05 Sodium 142 Potassium 3.2 L Chloride 108 H Carbon Dioxide 27.0 Anion Gap 7 BUN 11 Creatinine 0.74 Estim Creat Clear Calc 60.74 Est GFR (MDRD) Af Amer 101 Est GFR (MDRD) Non-Af 84 BUN/Creatinine Ratio 14.8 Glucose 128 H Calcium 7.9 L Total Bilirubin 0.20 AST 18 ALT 24 Alkaline Phosphatase 67 Troponin I High Sens 4.2 Total Protein 6.4 Albumin 2.9 L Globulin 3.5 Albumin/Globulin Ratio 0.8 L Radiography Diagnostic Testing: Radiology Impression Chest CTA 11/27/20 15:58 IMPRESSION: Negative CTA chest. Individualized dose optimization techniques were used for this CT. at 1753 Reported and signed by: Earle Downey MD Electronically Signed: Earle Downey MD at 17:52 EDT Tel , Service support , Discharge Plan Triage Chief Complaint: Chest Other ED Provider: Juan Hilliard Dx/Rx/DC Orders Clinical Impression: Chest pain Instructions: ED Chest Pain, Noncardiac Prescriptions: No Action albuterol sulfate 1 INHALER inhaler 2 puff inhalation Q6H PRN PRN (Reason: Shortness Of Breath) RF: 0 calcium carbonate-vitamin D3 1 EACH tablet 1 ea PO DAILY RF: 0 metoprolol succinate 25 MG tablet extended release 24 hr 25 mg PO DAILY RF: 0 divalproex 250 MG tablet 250 mg PO BIDCM RF: 0 topiramate 200 MG tablet 200 mg PO BID RF: 0 pantoprazole 40 MG tablet 40 mg PO DAILY RF: 0 lurasidone 40 MG tablet 1 tab PO DAILY RF: 0 duloxetine 30 MG capsule,delayed release(DR/EC) 30 mg PO DAILY RF: 0 metformin 500 mg tablet 500 mg PO DAILY RF: 0 ondansetron 4 mg tablet,disintegrating 4 mg PO Q8H PRN (Reason: nausea and vomiting) Qty: 10 RF: 0 Metamucil Fiber Singles 3.4 gram Powder In Packet 1 packet PO DAILY PRN PRN (Reason: Constipation) Qty: 0 RF: 0 Primary Care Provider: Fatoumata Rosen Referrals: Fatoumata Rsoen MD [Primary Care Provider] - As soon as possible Disposition Disposition: Home, Self Care Discharge Date/Time: 11/27/20 19:02
--- NOTE | 2020-11-27 16:03 | EKG12_ITS ---
Test Reason : DYSRHYTHMIA Blood Pressure : / mmHG Vent. Rate : 069 BPM Atrial Rate : 069 BPM P-R Int : 216 ms QRS Dur : 084 ms QT Int : 404 ms P-R-T Axes : 045 -12 015 degrees QTc Int : 432 ms Sinus rhythm with 1st degree A-V block Otherwise normal ECG Confirmed by CATHY ROJAS, LUIS M ([id number]), scientific editor HERMAN DOWNS ([id number]) on 12/02/2020 9:20:48 AM Referred By: ANN Confirmed By:LUIS M MORGAN MD
[2020-11-27 17:43] LABS: ALB/GLOB Ratio 0.8 RATIO (0.9-2.4); AST(SGOT) 18 U/L (15-37); Alanine Aminotransfer ALT/SGPT 24 U/L (13-56); Albumin, Serum 2.9 g/dL (3.2-5.0); Alkaline Phosphatase 67 U/L (45-117); Anion Gap 7 (5-15); BUN 11 mg/dL (7-18); BUN/Creat Ratio 14.8 RATIO (10-20); Calcium,Total 7.9 mg/dL (8.5-10.1); Chloride 108 mmol/L (98-107); Creatinine, Serum 0.74 mg/dL (0.55-1.02); EST Glomerular Filtration Rate 84 mL/min (>60); Est Glom Filt Rate - Afr Amer 101 mL/min (>60); Estimated Creatinine Clearance 60.74 ml/min; Globulin 3.5 g/dL (2.2-4.2); Glucose 128 mg/dL (74-106); Potassium 3.2 mmol/L (3.5-5.1); Protein, Total 6.4 g/dL (6.4-8.2); Sodium Level 142 mmol/L (136-145); Troponin-I HS 4.2 pg/mL (3.0-53.7)
--- NOTE | 2020-11-27 19:08 | ED.RN ---
pt requested disposal of Ambien medication. Pills counted and disposed of in medical waste container. 27 pills. waste witnessed by Stacy Etienne rn. ED Dr. informed. stacy stevens rn [id number]
== END 2020-11-27 19:02 | disposition home or self-care (01) ==
PROVIDERS: Emergency Provider Emergency Medicine; PCP Internal Medicine
DX: R07.89 Other chest pain (principal); R42 Dizziness and giddiness; R06.02 Shortness of breath; R51.9 Headache, unspecified; R21 Rash and other nonspecific skin eruption; J45.909 Unspecified asthma, uncomplicated; I25.10 Atherosclerotic heart disease of native coronary artery without angina pectoris; K21.9 Gastro-esophageal reflux disease without esophagitis; I10 Essential (primary) hypertension; Z79.84 Long term (current) use of oral hypoglycemic drugs; Z79.899 Other long term (current) drug therapy; Z87.891 Personal history of nicotine dependence; Z99.81 Dependence on supplemental oxygen
CPT/HCPCS: 71045; 71275; 80053; 81001; 84484; 85025; 93005; 99285; J7030; Q9967; A4216

== ENCOUNTER 2020-11-30 21:19 | Emergency (ER) | payer MEDICARE, MEDICAID, SELFPAY ==
[2020-11-30 21:20] VITALS: BP 129/90; PULSE 88; RESP 18; TEMP 36.8; O2SAT 98; BMI 43.9
--- NOTE | 2020-11-30 22:25 | EDS_ITS ---
HPI History of Present Illness Chief Complaint: General Illness Informant: patient Narrative Narrative: 65-year-old female well-known to the emergency department for her extensive visit history presents to emergency department complaining of chronic abdominal pain related to a umbilical hernia and right lung pain. The right chest hurts with movement deep breathing touch and no movement at all. All the symptoms are chronic for her. There is been no change in them tonight. She states that she recently saw her primary care doctor and was given a prescription for pain medicine but she did not get it filled before the expiration date. She states that she has an appointment on Saturday to see an internal medicine doctor near [place]. She has had an appointment in [place] for the umbilical hernia but did not like the hospital also decided not to go with that doctor. She denies any fevers chills. She states that the chest pain is worse with laying down. Tonight she was having difficulty falling asleep so she came to emergency. [facility] Medical History Anxiety Asthma Chronic pain Coronary artery disease Depression Depression Former smoker GERD (gastroesophageal reflux disease) History of fracture of hand Hypertension Irregular heart beat Irregular heart beat Migraines On home oxygen therapy PTSD (post-traumatic stress disorder) Seizures Stroke/cerebrovascular accident Home Medications albuterol sulfate 2 puff INHALATION Q6H PRN PRN 02/20/18 [History Last Taken 0 06/21/19 18:00] calcium carbonate-vitamin D3 1 ea PO DAILY 06/13/19 [History Last Taken 06/19/19] metoprolol succinate 25 mg PO DAILY 07/08/19 [History Last Taken 07/21/19] divalproex 250 mg PO BIDCM 11/15/19 [History Last Taken Unknown] topiramate 200 mg PO BID 11/15/19 [History Last Taken Unknown] duloxetine 30 mg PO DAILY 05/27/20 [History Last Taken Unknown] lurasidone 1 tab PO DAILY 05/27/20 [History Last Taken Unknown] pantoprazole 40 mg PO DAILY 05/27/20 [History Last Taken Unknown] metformin 500 mg PO DAILY 09/02/20 [History Last Taken Unknown] ondansetron 4 mg PO Q8H PRN #10 tab 09/11/20 [Rx Last Taken Unknown] psyllium husk (aspartame) [Metamucil Fiber Singles] 1 packet PO DAILY PRN PRN #0 ea 09/19/20 [Rx Last Taken Unknown] Allergy/AdvReac Type Severity Reaction Status Date / Time acetaminophen [From Tylenol] AdvReac Upset Verified 11/30/20 21:23 Stomach amoxicillin [From Augmentin] AdvReac Hives Verified 11/30/20 21:23 clavulanic acid AdvReac Hives Verified 11/30/20 21:23 [From Augmentin] sulfamethoxazole AdvReac Vomiting Verified 11/30/20 21:23 [From Bactrim] sumatriptan [From Imitrex] AdvReac Vomiting Verified 11/30/20 21:23 sumatriptan succinate AdvReac Vomiting Verified 11/30/20 21:23 [From Imitrex] trimethoprim [From Bactrim] AdvReac Vomiting Verified 11/30/20 21:23 BEE STING Allergy Anaphylaxis Uncoded 11/30/20 21:23 ANTI PSYCHOTICS AdvReac Other Uncoded 11/30/20 21:23 PAPER TAPE AdvReac Rash Uncoded 11/30/20 21:23 Family History Mother Hypertension Father Hypertension Surgical History H/O hand surgery H/O knee surgery History of cholecystectomy History of left heart catheterization (06/23/19) Social History household members: none Smoking Status: Former smoker alcohol intake: never substance use type: does not use ROS ROS ED Constitutional Constitutional ED: Denies chills or weight loss Eyes Eyes: Denies change in vision or diplopia ENT ENT ED: Denies ear pain, rhinorrhea or sore throat Cardiovascular Cardiovascular: Reports chest pain; Denies orthopnea, palpitations or racing heartbeat Respiratory/Chest Respiratory/Chest: Denies cough, dyspnea or orthopnea Gastrointestinal Gastrointestinal: Reports abdominal pain; Denies diarrhea, nausea or vomiting Genitourinary Genitourinary ED: Denies dysuria, hematuria or urinary frequency Musculoskeletal Musculoskeletal: Denies arthralgias or myalgias Integumentary Denies abscess or rash Neurologic Neurologic: Denies headache(s) or weakness Psychiatric Psychiatric: Denies anxiety, depression, suicidal ideation or suicidal thoughts Endocrine Endocrinology: Denies polydipsia, polyphagia or polyuria Allergic/Immunologic Allergic/Immunologic ED: Denies mouth swelling, tongue swelling or urticaria EXAM Physical Exam Const Vital Signs: 11/30/20 21:20 11/30/20 22:02 Temperature 98.2 F Temperature Source Temporal Pulse Rate 88 Respiratory Rate 18 Respiratory Effort Normal Respiratory Pattern Normal Blood Pressure 129/90 H Blood Pressure Mean 103 Pulse Ox 98 Oxygen Delivery Method Room Air Positive well nourished and well developed General Appearance ED: well developed HEENT Reports normocephalic, head/scalp atraumatic and moist mucous membranes Eyes PERRL and EOMs intact bilaterally Neck no lymphadenopathy, supple and no JVD Chest Wall Chest Narrative: Patient reports generalized tenderness to palpation over the right chest. Simply laying my stethoscope on her chest she tells me that that hurts her. Resp normal respiratory effort and clear to auscultation bilaterally Cardio regular rate, regular rhythm and no murmurs GI normal to inspection, nondistended, normoactive bowel sounds and non-tender GI Narrative: I do not appreciate any significant hernias or evidence of strangulation/incarceration. Palpation: soft Back/Spine no CVA tenderness and normal ROM Extremity normal to inspection General Extremety ED: Negative for edema General Extremity: Negative for edema Neuro oriented x3 and CN's II-XII intact bilaterally Sensorium / Orientation: alert Motor Exam: strength 5/5 throughout Psych mental status grossly normal Mood & Affect: Negative for depressed or tearful Skin no rashes or lesions noted and no wounds MDM MDM MDM Narrative Medical decision making narrative: Mitral potation of the plain film of the right chest is no acute process. Patient received a dose of [place]. These are chronic problems and nothing really new is going on tonight. She has had these prior evaluated. Patient will be discharged home Discharge Plan Triage Chief Complaint: General Illness ED Provider: Conor Fry Dx/Rx/DC Orders Clinical Impression: Chest pain, Abdominal pain Instructions: ED Chest Pain, Uncertain Cause Prescriptions: No Action albuterol sulfate 1 INHALER inhaler 2 puff inhalation Q6H PRN PRN (Reason: Shortness Of Breath) RF: 0 calcium carbonate-vitamin D3 1 EACH tablet 1 ea PO DAILY RF: 0 metoprolol succinate 25 MG tablet extended release 24 hr 25 mg PO DAILY RF: 0 divalproex 250 MG tablet 250 mg PO BIDCM RF: 0 topiramate 200 MG tablet 200 mg PO BID RF: 0 pantoprazole 40 MG tablet 40 mg PO DAILY RF: 0 lurasidone 40 MG tablet 1 tab PO DAILY RF: 0 duloxetine 30 MG capsule,delayed release(DR/EC) 30 mg PO DAILY RF: 0 metformin 500 mg tablet 500 mg PO DAILY RF: 0 ondansetron 4 mg tablet,disintegrating 4 mg PO Q8H PRN (Reason: nausea and vomiting) Qty: 10 RF: 0 Metamucil Fiber Singles 3.4 gram Powder In Packet 1 packet PO DAILY PRN PRN (Reason: Constipation) Qty: 0 RF: 0 Primary Care Provider: Fatoumata Rosen Referrals: Fatoumata Rosen MD [Primary Care Provider] - As soon as possible Disposition Disposition: Home, Self Care
--- NOTE | 2020-11-30 22:30 | RAD_ITS ---
STUDY: X-RAY CHEST REASON FOR EXAM: Female, 65 years old. Chest pain. TECHNIQUE: Single AP portable view of the chest. COMPARISON: 11/27/2020 FINDINGS: The lungs are clear and expanded. There is no demonstrated pleural abnormality. Normal size heart. Normal mediastinum and ita. Normal visualized pulmonary arteries. Normal visualized aortic arch and descending thoracic aorta. There are diffuse degenerative changes of the visualized thoracic spine. Normal visualized ribs, clavicles, and shoulders. There is no demonstrated abnormality of the visualized soft tissue structures of the upper abdomen. RAD/Chest 1 View (Portable) IMPRESSION: Degenerative changes, as described above. No demonstrated acute cardiopulmonary process. No interval change. Electronically Signed: Clint Toro DO at 22:52 EDT Tel [phone], Service support ,
[2020-11-30] MEDS: HYDROcodone Bitartrate/Apap 5/325 Tablet PO (22:46)
--- NOTE | 2020-12-01 01:45 | ED.RN ---
PT set up her own ride with [facility]. They failed to pick her up. We called [facility] for a ride. No ETA was given but they will send someone to come get her. PT aware and resting comfortably.
--- NOTE | 2020-12-01 05:50 | ED.RN ---
PT doesn't want to wait for [facility] to come pick her up. Phone was given to her with numbers and she called for a taxi. PT taken to lobby via wheelchair.
== END 2020-12-01 05:51 | disposition home or self-care (01) ==
PROVIDERS: Emergency Provider Emergency Medicine; PCP Internal Medicine
DX: R07.9 Chest pain, unspecified (principal); R10.9 Unspecified abdominal pain; I25.10 Atherosclerotic heart disease of native coronary artery without angina pectoris; I10 Essential (primary) hypertension; J45.909 Unspecified asthma, uncomplicated; K21.9 Gastro-esophageal reflux disease without esophagitis; R56.9 Unspecified convulsions; G89.29 Other chronic pain; G43.909 Migraine, unspecified, not intractable, without status migrainosus; F32.9 Major depressive disorder, single episode, unspecified; Z87.891 Personal history of nicotine dependence; Z79.84 Long term (current) use of oral hypoglycemic drugs; Z79.899 Other long term (current) drug therapy
CPT/HCPCS: 71045; 99283

== ENCOUNTER 2020-12-03 23:30 | Emergency (ER) | payer MEDICARE, MEDICAID, SELFPAY ==
--- NOTE | 2020-12-03 23:34 | ED.RN ---
delay in obtaining initial 12 lead ekg because patient needed to use the restroom and refused to wait
[2020-12-03 23:42] VITALS: BP 121/59; PULSE 74; RESP 17; TEMP 36.6; O2SAT 93; BMI 45.6
--- NOTE | 2020-12-03 23:48 | EKG12_ITS ---
Test Reason : CP Blood Pressure : / mmHG Vent. Rate : 079 BPM Atrial Rate : 079 BPM P-R Int : 204 ms QRS Dur : 062 ms QT Int : 398 ms P-R-T Axes : 044 -06 017 degrees QTc Int : 456 ms Normal sinus rhythm Inferior infarct , age undetermined Abnormal ECG Confirmed by CATHY ROJAS, LUIS M ([id number]), editorial clerk HERMAN DOWNS ([id number]) on 12/07/2020 9:39:57 AM Referred By: ML Confirmed By:LUIS M MORGAN MD
--- NOTE | 2020-12-03 23:57 | ED.VIS.CHEST ---
HPI History of Present Illness Chief Complaint: Chest Pain Informant: patient Narrative Narrative: Patient presents with chest pain. She states she is having this all the time. She states she is not here for hydrocodone because she has some at home. The pain was in the right side of the chest but did radiate over toward the left. She does not know if she was short of breath. She did feel little hot. No nausea or vomiting. She is not sure exactly how often she is getting this but states she gets it quite frequently. Sometimes she will get it several times in a day. Sometimes it seems like it by two or 3 days. Pressing on the chest or moving the arms usually makes it worse. Nothing specifically makes it better. Patient did have a heart catheterization in May 2019. She had nuclear stress test earlier this year. She had a CTA of the chest earlier this month. She has had multiple work-ups for this. [facility] Medical History Anxiety Asthma Chronic pain Coronary artery disease Depression Depression Former smoker GERD (gastroesophageal reflux disease) History of fracture of hand Hypertension Irregular heart beat Irregular heart beat Migraines On home oxygen therapy PTSD (post-traumatic stress disorder) Seizures Stroke/cerebrovascular accident Home Medications albuterol sulfate 2 puff INHALATION Q6H PRN PRN 02/20/18 [History Last Taken 06/21/19 18:00] calcium carbonate-vitamin D3 1 ea PO DAILY 06/13/19 [History Last Taken 06/19/19] metoprolol succinate 25 mg PO DAILY 07/08/19 [History Last Taken 07/21/19] divalproex 250 mg PO BIDCM 11/15/19 [History Last Taken Unknown] topiramate 200 mg PO BID 11/15/19 [History Last Taken Unknown] duloxetine 30 mg PO DAILY 05/27/20 [History Last Taken Unknown] lurasidone 1 tab PO DAILY 05/27/20 [History Last Taken Unknown] pantoprazole 40 mg PO DAILY 05/27/20 [History Last Taken Unknown] metformin 500 mg PO DAILY 09/02/20 [History Last Taken Unknown] ondansetron 4 mg PO Q8H PRN #10 tab 09/11/20 [Rx Last Taken Unknown] psyllium husk (aspartame) [Metamucil Fiber Singles] 1 packet PO DAILY PRN PRN #0 ea 09/19/20 [Rx Last Taken Unknown] Allergy/AdvReac Type Severity Reaction Status Date / Time acetaminophen [From Tylenol] AdvReac Upset Verified 12/03/20 23:35 Stomach amoxicillin [From Augmentin] AdvReac Hives Verified 12/03/20 23:35 clavulanic acid AdvReac Hives Verified 12/03/20 23:35 [From Augmentin] sulfamethoxazole AdvReac Vomiting Verified 12/03/20 23:35 [From Bactrim] sumatriptan [From Imitrex] AdvReac Vomiting Verified 12/03/20 23:35 sumatriptan succinate AdvReac Vomiting Verified 12/03/20 23:35 [From Imitrex] trimethoprim [From Bactrim] AdvReac Vomiting Verified 12/03/20 23:35 BEE STING Allergy Anaphylaxis Uncoded 12/03/20 23:35 ANTI PSYCHOTICS AdvReac Other Uncoded 12/03/20 23:35 PAPER TAPE AdvReac Rash Uncoded 12/03/20 23:35 Family History Mother Hypertension Father Hypertension Surgical History H/O hand surgery H/O knee surgery History of cholecystectomy History of left heart catheterization (06/23/19) Social History household members: none Smoking Status: Former smoker alcohol intake: never substance use type: does not use ROS ROS ED Constitutional Constitutional ED: Denies chills, fever(s) or sweats Eyes Eyes: Denies change in vision ENT ENT ED: Denies rhinorrhea or sore throat Cardiovascular Cardiovascular: Reports as per HPI Respiratory/Chest Respiratory/Chest: Denies dyspnea Gastrointestinal Gastrointestinal: Denies abdominal pain, nausea or vomiting Musculoskeletal Musculoskeletal: Denies arthralgias Integumentary Denies rash Neurologic Neurologic: Denies headache(s), paresthesias or weakness Psychiatric Psychiatric: Reports anxiety Hematologic/Lymphatic Hematologic/Lymphatic: Denies easy bleeding or easy bruising EXAM Physical Exam Const Vital Signs: 12/03/20 23:42 12/03/20 23:45 Temperature 97.8 F Temperature Source Temporal Pulse Rate 74 Respiratory Rate 17 Respiratory Effort Normal Respiratory Pattern Normal Blood Pressure 121/59 H Blood Pressure Mean 79 Pulse Ox 93 Oxygen Delivery Method Room Air Positive well nourished and well developed General Appearance ED: well developed and NAD HEENT normocephalic and atraumatic Eyes EOMs intact bilaterally Chest Wall inspection of chest normal Chest Narrative: She does have some tenderness of the chest both on the right and left side mostly upper near the sternum. No rashes or redness are seen. Chest: tenderness Resp normal respiratory effort and clear to auscultation bilaterally Effort and Inspection: Negative for respiratory distress Cardio regular rate and regular rhythm Peripheral Pulses: radial pulses present and posterior tibial pulses present GI normal to inspection, nondistended, normoactive bowel sounds, soft to palpation and non-tender Back/Spine no CVA tenderness Neuro Sensorium / Orientation: awake and alert Psych mental status grossly normal Skin no rashes or lesions noted MDM MDM MDM Narrative Medical decision making narrative: Patient's EKG shows no marked change. Her chest x-ray is normal. She has had multiple evaluations for this. She has many troponins checked all of which have been normal. She has had heart catheterization as well as stress test. She states that she thinks this is her anxiety that gets bad. She is feeling better. She would like to take her own oxy or hydrocodone and go home. I think that is reasonable. Follow-up is appropriate. Radiography Diagnostic Testing: Radiology Impression Chest X-Ray 12/04/20 00:02 IMPRESSION: No acute findings in the chest. at 0049 Reported and signed by: Michael Serrato MD Electronically Signed: Michael Serrato MD at 0:48 EDT Tel , Service support , EKG Initial EKG: Comments: EKG done for chest pain read by me shows normal sinus rhythm with overall rate of 79. Mild nonspecific ST and T wave changes but no sign of acute infarcts. No significant ST depression. AR interval is slightly long at 204 ms showing a first-degree AV block. QRS and QTc are normal. This is similar to 27 November 2020. Discharge Plan Triage Chief Complaint: Chest Pain ED Provider: Mickey Warren Dx/Rx/DC Orders Clinical Impression: Chest pain Instructions: ED Chest Pain, Uncertain Cause Prescriptions: No Action albuterol sulfate 1 INHALER inhaler 2 puff inhalation Q6H PRN PRN (Reason: Shortness Of Breath) RF: 0 calcium carbonate-vitamin D3 1 EACH tablet 1 ea PO DAILY RF: 0 metoprolol succinate 25 MG tablet extended release 24 hr 25 mg PO DAILY RF: 0 divalproex 250 MG tablet 250 mg PO BIDCM RF: 0 topiramate 200 MG tablet 200 mg PO BID RF: 0 pantoprazole 40 MG tablet 40 mg PO DAILY RF: 0 lurasidone 40 MG tablet 1 tab PO DAILY RF: 0 duloxetine 30 MG capsule,delayed release(DR/EC) 30 mg PO DAILY RF: 0 metformin 500 mg tablet 500 mg PO DAILY RF: 0 ondansetron 4 mg tablet,disintegrating 4 mg PO Q8H PRN (Reason: nausea and vomiting) Qty: 10 RF: 0 Metamucil Fiber Singles 3.4 gram Powder In Packet 1 packet PO DAILY PRN PRN (Reason: Constipation) Qty: 0 RF: 0 Primary Care Provider: Fatoumata Rosen Referrals: Fatoumata Rosen MD [Primary Care Provider] - 3-5 Days Disposition Disposition: Home, Self Care
--- NOTE | 2020-12-04 00:02 | RAD_ITS ---
EXAM: XR CHEST, 1 VIEW : 1955 CLINICAL INDICATION: CP TECHNIQUE: Frontal view of the chest. This report was created using [employer] report generation technology. COMPARISON: 11/30/20 FINDINGS: LUNGS AND PLEURAL SPACES: Unremarkable. No consolidation or edema. No pneumothorax. No effusion. HEART: Mild enlargement of the cardiac silhouette. MEDIASTINUM: Central airways and mediastinal contour are unremarkable. BONES/JOINTS: Unremarkable. SOFT TISSUES: Unremarkable. RAD/Chest 1 View (Portable) IMPRESSION: No acute findings in the chest. at 0049 Reported and signed by: Michael Serrato MD Electronically Signed: Michael Serrato MD at 0:48 EDT Tel , Service support ,
[2020-12-04 01:43] VITALS: BP 141/74; PULSE 87; RESP 18; O2SAT 97
== END 2020-12-04 01:44 | disposition home or self-care (01) ==
PROVIDERS: Emergency Provider Emergency Medicine; PCP Internal Medicine
DX: R07.9 Chest pain, unspecified (principal); I25.10 Atherosclerotic heart disease of native coronary artery without angina pectoris; Z87.891 Personal history of nicotine dependence
CPT/HCPCS: 71045; 93005; 99285

== ENCOUNTER 2020-12-05 00:18 | Emergency (ER) | payer MEDICARE, MEDICAID, SELFPAY ==
[2020-12-05 00:20] VITALS: BP 101/71; PULSE 78; RESP 16; TEMP 36.5; O2SAT 98; BMI 45.3
--- NOTE | 2020-12-05 00:49 | EDS_ITS ---
HPI History of Present Illness Chief Complaint: Rash Informant: patient Narrative Narrative: Patient complains that she thinks a bug bit her because she started itching all over. She never had trouble breathing. No swelling or closing up of the throat or tongue. No abdominal pain or cramping. Despite her history, she has no chest pain palpitations or breathing issues at all. She gave herself epinephrine shot. She states she still has a little itching around her neck but otherwise feels better. She does not know if she was bitten with anything. When I ask her, I find out that she has had itching all over herself many times before of uncertain etiology. Nothing makes this worse. Epinephrine did seem to make it better. [facility] Medical History Anxiety Asthma Chronic pain Coronary artery disease Depression Depression Former smoker GERD (gastroesophageal reflux disease) History of fracture of hand Hypertension Irregular heart beat Irregular heart beat Migraines On home oxygen therapy PTSD (post-traumatic stress disorder) Seizures Stroke/cerebrovascular accident Home Medications albuterol sulfate 2 puff INHALATION Q6H PRN PRN 02/20/18 [History Last Taken 06/21/19 18:00] calcium carbonate-vitamin D3 1 ea PO DAILY 06/13/19 [History Last Taken 06/19/19] metoprolol succinate 25 mg PO DAILY 07/08/19 [History Last Taken 07/21/19] divalproex 250 mg PO BIDCM 11/15/19 [History Last Taken Unknown] topiramate 200 mg PO BID 11/15/19 [History Last Taken Unknown] duloxetine 30 mg PO DAILY 05/27/20 [History Last Taken Unknown] lurasidone 1 tab PO DAILY 05/27/20 [History Last Taken Unknown] pantoprazole 40 mg PO DAILY 05/27/20 [History Last Taken Unknown] metformin 500 mg PO DAILY 09/02/20 [History Last Taken Unknown] ondansetron 4 mg PO Q8H PRN #10 tab 09/11/20 [Rx Last Taken Unknown] psyllium husk (aspartame) [Metamucil Fiber Singles] 1 packet PO DAILY PRN PRN #0 ea 09/19/20 [Rx Last Taken Unknown] hydroxyzine pamoate [Vistaril] 25 mg PO TID PRN #14 cap 12/05/20 [Rx Last Taken Unknown] Allergy/AdvReac Type Severity Reaction Status Date / Time acetaminophen [From Tylenol] AdvReac Upset Verified 12/05/20 00:19 Stomach amoxicillin [From Augmentin] AdvReac Hives Verified 12/05/20 00:19 clavulanic acid AdvReac Hives Verified 12/05/20 00:19 [From Augmentin] sulfamethoxazole AdvReac Vomiting Verified 12/05/20 00:19 [From Bactrim] sumatriptan [From Imitrex] AdvReac Vomiting Verified 12/05/20 00:19 sumatriptan succinate AdvReac Vomiting Verified 12/05/20 00:19 [From Imitrex] trimethoprim [From Bactrim] AdvReac Vomiting Verified 12/05/20 00:19 BEE STING Allergy Anaphylaxis Uncoded 12/05/20 00:19 ANTI PSYCHOTICS AdvReac Other Uncoded 12/05/20 00:19 PAPER TAPE AdvReac Rash Uncoded 12/05/20 00:19 Family History Mother Hypertension Father Hypertension Surgical History H/O hand surgery H/O knee surgery History of cholecystectomy History of left heart catheterization (06/23/19) Social History household members: none Smoking Status: Former smoker alcohol intake: never substance use type: does not use ROS ROS ED Constitutional Constitutional ED: Denies chills or fever(s) Eyes Eyes: Denies blurry vision ENT ENT ED: Denies rhinorrhea or sore throat Cardiovascular Cardiovascular: Denies chest pain, palpitations or racing heartbeat Respiratory/Chest Respiratory/Chest: Denies cough or dyspnea Gastrointestinal Gastrointestinal: Denies abdominal pain, nausea or vomiting Musculoskeletal Musculoskeletal: Denies back pain or neck pain Integumentary Reports other Details: No actual rash but she did have itching. See history of present illness. Neurologic Neurologic: Denies paresthesias Psychiatric Psychiatric: Reports anxiety Allergic/Immunologic Allergic/Immunologic ED: Reports other Details: See history of present illness. ; Denies mouth swelling, tongue swelling or urticaria EXAM Physical Exam Const Vital Signs: 12/05/20 00:20 Temperature 97.7 F L Temperature Source Temporal Pulse Rate 78 Respiratory Rate 16 Blood Pressure 101/71 Blood Pressure Mean 81 Pulse Ox 98 Oxygen Delivery Method Room Air Positive well nourished and well developed General Appearance ED: well developed and NAD HEENT Negative for trauma or tenderness Eyes PERRL General Eye ED: Negative for pale conjunctiva or scleral icterus Neck no JVD Chest Wall inspection of chest normal Resp normal respiratory effort and clear to auscultation bilaterally Cardio regular rate and regular rhythm GI normal to inspection, nondistended, normoactive bowel sounds and non-tender Palpation: soft Back/Spine no CVA tenderness Extremity normal to inspection General Extremety ED: Negative for tenderness Neuro Sensorium / Orientation: alert Psych mental status grossly normal Skin no rashes or lesions noted Skin Narrative: There is no rash there is no hives. There is no bug bites. She has excoriations on her shins. She does appear to have dry skin. I do note that she is wearing the same clothing as when I saw her yesterday. This might be contributing to her chronic itching. But I see absolutely 0 indication of allergic reaction at this time. MDM MDM MDM Narrative Medical decision making narrative: Patient never did have a rash. She has history of chronic itching. I do not think this actually represents an anaphylactic reaction. 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 I will give her Vistaril. I think she is safe to go home. Discharge Plan Triage Chief Complaint: Rash ED Provider: Mickey Warren Dx/Rx/DC Orders Clinical Impression: Pruritus Instructions: ED Insect Bite Prescriptions: New hydroxyzine pamoate [Vistaril] 25 mg capsule 25 mg PO TID PRN (Reason: itching) Qty: 14 RF: 0 No Action albuterol sulfate 1 INHALER inhaler 2 puff inhalation Q6H PRN PRN (Reason: Shortness Of Breath) RF: 0 calcium carbonate-vitamin D3 1 EACH tablet 1 ea PO DAILY RF: 0 metoprolol succinate 25 MG tablet extended release 24 hr 25 mg PO DAILY RF: 0 divalproex 250 MG tablet 250 mg PO BIDCM RF: 0 topiramate 200 MG tablet 200 mg PO BID RF: 0 pantoprazole 40 MG tablet 40 mg PO DAILY RF: 0 lurasidone 40 MG tablet 1 tab PO DAILY RF: 0 duloxetine 30 MG capsule,delayed release(DR/EC) 30 mg PO DAILY RF: 0 metformin 500 mg tablet 500 mg PO DAILY RF: 0 ondansetron 4 mg tablet,disintegrating 4 mg PO Q8H PRN (Reason: nausea and vomiting) Qty: 10 RF: 0 Metamucil Fiber Singles 3.4 gram Powder In Packet 1 packet PO DAILY PRN PRN (Reason: Constipation) Qty: 0 RF: 0 Primary Care Provider: Fatoumata Rosen Referrals: Fatoumata Rosen MD [Primary Care Provider] - 3-5 Days if not improving Disposition Disposition: Home, Self Care
[2020-12-05] MEDS: hydrOXYzine PAM 25 MG Capsule PO (01:17)
== END 2020-12-05 05:31 | disposition home or self-care (01) ==
PROVIDERS: Emergency Provider Emergency Medicine; PCP Internal Medicine
DX: L29.9 Pruritus, unspecified (principal); I25.10 Atherosclerotic heart disease of native coronary artery without angina pectoris; Z87.891 Personal history of nicotine dependence

== ENCOUNTER 2020-12-05 16:32 | Emergency (ER) | payer MEDICARE, MEDICAID, SELFPAY ==
[2020-12-05 00:20] VITALS: BMI 45.3
[2020-12-05 16:34] VITALS: BP 176/103; PULSE 79; RESP 18; TEMP 36.8; O2SAT 96; BMI 43.9
--- NOTE | 2020-12-05 18:12 | EX.ED.DYSGE1 ---
HPI History of Present Illness Chief Complaint: Burn Informant: patient Onset/Context/Timing Onset: Month(s) Context: Gradual Onset Timing: Intermittent Current Severity: Mild Maximum Severity: Mild Narrative Narrative: 65-year-old female history of schizophrenia. She is concerned that someone is putting something in her hose at home causing amount of radiation morgan. She denies being homicidal or suicidal. She came in today by her own volition. Prior similar symptoms: No Recent Illness/Hospitalization: No PFSH PFSH Medical History Anxiety Asthma Chronic pain Coronary artery disease Depression Depression Former smoker GERD (gastroesophageal reflux disease) History of fracture of hand Hypertension Irregular heart beat Irregular heart beat Migraines On home oxygen therapy PTSD (post-traumatic stress disorder) Seizures Stroke/cerebrovascular accident Home Medications albuterol sulfate 2 puff INHALATION Q6H PRN PRN 02/20/18 [History Last Taken 06/21/19 18:00] calcium carbonate-vitamin D3 1 ea PO DAILY 06/13/19 [History Last Taken 06/19/19] metoprolol succinate 25 mg PO DAILY 07/08/19 [History Last Taken 07/21/19] divalproex 250 mg PO BIDCM 11/15/19 [History Last Taken Unknown] topiramate 200 mg PO BID 11/15/19 [History Last Taken Unknown] duloxetine 30 mg PO DAILY 05/27/20 [History Last Taken Unknown] lurasidone 1 tab PO DAILY 05/27/20 [History Last Taken Unknown] pantoprazole 40 mg PO BID 05/27/20 [History Last Taken Unknown] metformin 500 mg PO DAILY 09/02/20 [History Last Taken Unknown] ondansetron 4 mg PO Q8H PRN #10 tab 09/11/20 [Rx Last Taken Unknown] psyllium husk (aspartame) [Metamucil Fiber Singles] 1 packet PO DAILY PRN PRN #0 ea 09/19/20 [Rx Last Taken Unknown] hydroxyzine pamoate [Vistaril] 25 mg PO TID PRN #14 cap 12/05/20 [Rx Last Taken Unknown] Allergy/AdvReac Type Severity Reaction Status Date / Time acetaminophen [From Tylenol] AdvReac Upset Verified 12/05/20 16:33 Stomach amoxicillin [From Augmentin] AdvReac Hives Verified 12/05/20 16:33 clavulanic acid AdvReac Hives Verified 12/05/20 16:33 [From Augmentin] sulfamethoxazole AdvReac Vomiting Verified 12/05/20 16:33 [From Bactrim] sumatriptan [From Imitrex] AdvReac Vomiting Verified 12/05/20 16:33 sumatriptan succinate AdvReac Vomiting Verified 12/05/20 16:33 [From Imitrex] trimethoprim [From Bactrim] AdvReac Vomiting Verified 12/05/20 16:33 BEE STING Allergy Anaphylaxis Uncoded 12/05/20 16:33 ANTI PSYCHOTICS AdvReac Other Uncoded 12/05/20 16:33 PAPER TAPE AdvReac Rash Uncoded 12/05/20 16:33 Family History Mother Hypertension Father Hypertension Surgical History H/O hand surgery H/O knee surgery History of cholecystectomy History of left heart catheterization (06/23/19) Social History household members: none Smoking Status: Former smoker alcohol intake: never substance use type: does not use ROS ROS ED ROS Narrative Denies recent illness. Review of Systems ROS Unobtainable: Denies due to encephalopathy Constitutional Constitutional ED: Denies chills or fever(s) Eyes Eyes: Denies change in vision ENT ENT ED: Denies ear pain Cardiovascular Cardiovascular: Denies chest pain Respiratory/Chest Respiratory/Chest: Denies cough or dyspnea Gastrointestinal Gastrointestinal: Reports diarrhea; Denies abdominal pain, nausea or vomiting Genitourinary Genitourinary ED: Denies dysuria Musculoskeletal Musculoskeletal: Denies myalgias Integumentary Denies rash Neurologic Neurologic: Denies headache(s) Psychiatric Psychiatric: Denies depression Endocrine Endocrinology: Denies polyuria Allergic/Immunologic Allergic/Immunologic ED: Denies urticaria EXAM Physical Exam Narrative Exam Narrative: 65-year-old female no acute distress. Exam normal. There is no signs any morgan to her. I think this is all her underlying schizophrenia. She'll be discharged home. Const Vital Signs: 12/05/20 16:34 Temperature 98.2 F Temperature Source Temporal Pulse Rate 79 Respiratory Rate 18 Blood Pressure 176/103 H Blood Pressure Mean 127 Pulse Ox 96 Oxygen Delivery Method Room Air Positive well nourished and well developed General Appearance ED: well developed HEENT Reports moist mucous membranes Negative for trauma or tenderness Eyes PERRL and EOMs intact bilaterally Neck no lymphadenopathy, supple and no JVD General: Negative for tenderness Chest Wall inspection of chest normal and palpation of chest normal Resp normal respiratory effort and clear to auscultation bilaterally Effort and Inspection: Negative for pain with movement Cardio regular rate, regular rhythm, S1 normal heart sound, S2 normal heart sound and no murmurs GI normal to inspection, nondistended, normoactive bowel sounds, non-tender and non-distended Palpation: soft Back/Spine no CVA tenderness Extremity normal to inspection General Extremety ED: Negative for edema or tenderness General Extremity: Negative for edema Neuro oriented x3 Sensorium / Orientation: alert; Negative for lethargic or stuporous Motor Exam: strength 5/5 throughout Psych mental status grossly normal Attitude: No agitated Mood & Affect: Negative for depressed, anxious or tearful Skin no rashes or lesions noted and no wounds MDM MDM MDM Narrative Medical decision making narrative: 65-year-old female with complaints consistent with paranoid schizophrenia. She is not homicidal or suicidal. She is able to take care of herself. She'll be discharged home. She states she has been taking her medications. Discharge Plan Triage Chief Complaint: Burn ED Provider: Tano Rangel Dx/Rx/DC Orders Clinical Impression: Schizophrenia Instructions: ED Schizophrenia, General Prescriptions: No Action albuterol sulfate 1 INHALER inhaler 2 puff inhalation Q6H PRN PRN (Reason: Shortness Of Breath) RF: 0 calcium carbonate-vitamin D3 1 EACH tablet 1 ea PO DAILY RF: 0 metoprolol succinate 25 MG tablet extended release 24 hr 25 mg PO DAILY RF: 0 divalproex 250 MG tablet 250 mg PO BIDCM RF: 0 topiramate 200 MG tablet 200 mg PO BID RF: 0 pantoprazole 40 MG tablet 40 mg PO BID RF: 0 lurasidone 40 MG tablet 1 tab PO DAILY RF: 0 duloxetine 30 MG capsule,delayed release(DR/EC) 30 mg PO DAILY RF: 0 metformin 500 mg tablet 500 mg PO DAILY RF: 0 ondansetron 4 mg tablet,disintegrating 4 mg PO Q8H PRN (Reason: nausea and vomiting) Qty: 10 RF: 0 Metamucil Fiber Singles 3.4 gram Powder In Packet 1 packet PO DAILY PRN PRN (Reason: Constipation) Qty: 0 RF: 0 hydroxyzine pamoate [Vistaril] 25 mg capsule 25 mg PO TID PRN (Reason: itching) Qty: 14 RF: 0 Primary Care Provider: Fatoumata Rosen Referrals: Fatoumata Rosen MD [Primary Care Provider] - 3-5 Days Activity Restrictions/Additional Instructions: Follow-up with your doctor. Disposition Disposition: Home, Self Care
== END 2020-12-05 18:29 | disposition home or self-care (01) ==
LOC: ED 18:21
PROVIDERS: Emergency Provider Emergency Medicine; PCP Internal Medicine
DX: Z00.00 Encounter for general adult medical examination without abnormal findings (principal)
CPT/HCPCS: 99282

== ENCOUNTER 2020-12-05 23:12 | Emergency (ER) | payer MEDICARE, MEDICAID, SELFPAY ==
[2020-12-05 16:34] VITALS: BMI 43.9
[2020-12-05 23:13] VITALS: BP 135/75; PULSE 73; RESP 16; TEMP 36.7; O2SAT 94; BMI 49.4
[2020-12-06] VITALS (7 sets, daily range): BP systolic 114–148; BP diastolic 66–87; PULSE 73–89; RESP 15–18; TEMP 36.7; O2SAT 95–99
[2020-12-06 01:07] LABS: Absolute Lymphocyte Count 3.18 X10^3/uL (0.83-4.51); Absolute Neutrophil Count 4.5 X10^3/uL (2.0-7.7); Basophil# 0.14 X10^3/uL; Basophil% 1.5 % (0-1); Eosinophil# 0.62 X10^3/uL; Eosinophils% 6.5 % (0-5); Hematocrit 37.9 % (37-47); Lymphocyte # 3.18 X10^3/ul (0.83-4.51); Lymphocyte % 33.6 % (19-41); Mean Corp Hgb Conc 31.7 g/dL (32-36); Mean Corpuscular Volume 94.8 fL (81-99); Mean Platelet Vol. 9.9 fl (6.2-12.0); Monocyte% 10.6 % (0-10); NRBC Flagged by Analyzer 0 % (0-5); Neutrophil # 4.49 X10^3/uL (2.7-7.7); Neutrophil % 47.4 % (47-70); Platelet Count 267 K/mm3 (150-450); RBC Distribution Width CV 14.2 % (11.6-14.6); RBC Distribution Width SD 49.4 fl (35.1-43.9); White Blood Count 9.5 K/mm3 (4.4-11.0)
[2020-12-06 01:11] LABS: Amphetamine Urine VISTA NEGATIVE (<1000 ng/mL); Barbiturate Urine VISTA NEGATIVE (< 200 ng/mL); Benzodiazepine Urine VISTA NEGATIVE (< 200 ng/mL); Cocaine Urine VISTA NEGATIVE (< 300 ng/mL); Ecstacy Urine VISTA NEGATIVE (< 500 ng/mL); Methadone Urine VISTA NEGATIVE (< 300 ng/mL); PCP Urine VISTA NEGATIVE (< 25 ng/mL); THC Urine VISTA NEGATIVE (< 50 ng/mL); Vista UDS pH Range 6
[2020-12-06 01:22] LABS: Anion Gap 3 (5-15); BUN 11 mg/dL (7-18); BUN/Creat Ratio 15.3 RATIO (10-20); Calcium,Total 8.3 mg/dL (8.5-10.1); Chloride 107 mmol/L (98-107); Creatinine, Serum 0.72 mg/dL (0.55-1.02); EST Glomerular Filtration Rate 87 mL/min (>60); Est Glom Filt Rate - Afr Amer 105 mL/min (>60); Estimated Creatinine Clearance 62.43 ml/min; Glucose 147 mg/dL (74-106); Potassium 3.3 mmol/L (3.5-5.1); Sodium Level 141 mmol/L (136-145)
[2020-12-06 01:27] LABS: Alcohol, Blood (Medical)-Serum < 3.0 mg/dL
--- NOTE | 2020-12-06 01:33 | NURSING ---
CALLED CRISIS AT 013
--- NOTE | 2020-12-06 03:55 | EDS_ITS ---
HPI HPI - Psych History of Present Illness Chief Complaint: Mental Health Informant: patient Narrative Narrative: Patient presents stating that she feels she needs to go to a psychiatric facility. Patient reportedly was here earlier with concerns of radiation morgan to her hands. When the doctor that saw her could not see the lesions on her hands she left and found someone to watch her dog. She returned with a suitcase and stated that she called [facility] and they are accepting patients. She took a marker and circled the reported lesions on her hand so that the medical staff could evaluate the radiation morgan on her hand s. Patient denies that she wants to harm herself but states that she is not able to care for herself at home. [facility] Medical History Anxiety Asthma Chronic pain Coronary artery disease Depression Depression Former smoker GERD (gastroesophageal reflux disease) History of fracture of hand Hypertension Irregular heart beat Irregular heart beat Migraines On home oxygen therapy PTSD (post-traumatic stress disorder) Seizures Stroke/cerebrovascular accident Home Medications albuterol sulfate 2 puff INHALATION Q6H PRN PRN 02/20/18 [History Last Taken 06/21/19 18:00] calcium carbonate-vitamin D3 1 ea PO DAILY 06/13/19 [History Last Taken 06/19/19] metoprolol succinate 25 mg PO DAILY 07/08/19 [History Last Taken 07/21/19] divalproex 250 mg PO BIDCM 11/15/19 [History Last Taken Unknown] topiramate 200 mg PO BID 11/15/19 [History Last Taken Unknown] duloxetine 30 mg PO DAILY 05/27/20 [History Last Taken Unknown] lurasidone 1 tab PO DAILY 05/27/20 [History Last Taken Unknown] pantoprazole 40 mg PO BID 05/27/20 [History Last Taken Unknown] metformin 500 mg PO DAILY 09/02/20 [History Last Taken Unknown] ondansetron 4 mg PO Q8H PRN #10 tab 09/11/20 [Rx Last Taken Unknown] psyllium husk (aspartame) [Metamucil Fiber Singles] 1 packet PO DAILY PRN PRN #0 ea 09/19/20 [Rx Last Taken Unknown] hydroxyzine pamoate [Vistaril] 25 mg PO TID PRN #14 cap 12/05/20 [Rx Last Taken Unknown] Allergy/AdvReac Type Severity Reaction Status Date / Time acetaminophen [From Tylenol] AdvReac Upset Verified 12/05/20 16:33 Stomach amoxicillin [From Augmentin] AdvReac Hives Verified 12/05/20 16:33 clavulanic acid AdvReac Hives Verified 12/05/20 16:33 [From Augmentin] sulfamethoxazole AdvReac Vomiting Verified 12/05/20 16:33 [From Bactrim] sumatriptan [From Imitrex] AdvReac Vomiting Verified 12/05/20 16:33 sumatriptan succinate AdvReac Vomiting Verified 12/05/20 16:33 [From Imitrex] trimethoprim [From Bactrim] AdvReac Vomiting Verified 12/05/20 16:33 BEE STING Allergy Anaphylaxis Uncoded 12/05/20 16:33 ANTI PSYCHOTICS AdvReac Other Uncoded 12/05/20 16:33 PAPER TAPE AdvReac Rash Uncoded 12/05/20 16:33 Family History Mother Hypertension Father Hypertension Surgical History H/O hand surgery H/O knee surgery History of cholecystectomy History of left heart catheterization (06/23/19) Social History household members: none Smoking Status: Former smoker alcohol intake: never substance use type: does not use ROS ROS ED Constitutional Constitutional ED: Denies chills or fever(s) Eyes Eyes: Denies change in vision ENT ENT ED: Denies sore throat Cardiovascular Cardiovascular: Denies chest pain Respiratory/Chest Respiratory/Chest: Denies cough or dyspnea Gastrointestinal Gastrointestinal: Denies abdominal pain, diarrhea, nausea or vomiting Genitourinary Genitourinary ED: Denies dysuria Musculoskeletal Musculoskeletal: Denies back pain Integumentary Denies rash Neurologic Neurologic: Denies headache(s) or weakness Psychiatric Psychiatric: Denies anxiety, depression, suicidal ideation or suicidal thoughts Allergic/Immunologic Allergic/Immunologic ED: Denies urticaria EXAM Physical Exam Const Vital Signs: 12/05/20 23:13 12/06/20 05:35 Temperature 98.1 F Temperature Source Temporal Pulse Rate 73 74 Respiratory Rate 16 15 Blood Pressure 135/75 H Blood Pressure Mean 95 Pulse Ox 94 97 Oxygen Delivery Method Room Air Room Air Positive well nourished and well developed General Appearance ED: well developed HEENT normocephalic Eyes EOMs intact bilaterally Neck supple Resp normal respiratory effort and clear to auscultation bilaterally Cardio Rate: regular rate Rhythm: regular rhythm GI non-tender Palpation: soft Extremity Extremity Narrative: Patient has multiple circles drawn on her hands to outline what she believes are bumps on her skin. No lesions or skin abnormalities are noted. Neuro oriented x3 Sensorium / Orientation: alert Psych cooperative Appearance: grossly normal Activity / Motor Behavior: avoids eye contact Speech: slow Mood & Affect: labile affect Insight: limited Judgement: limited Skin Lesions: no lesions Rashes: no rashes MDM MDM MDM Narrative Medical decision making narrative: Mental health work-up was undertaken. Lab Data Attestation: I reviewed the patient's lab results. Labs: Laboratory Results - last 24 hr 12/06/20 12/06/20 12/06/20 00:45 01:00 01:00 WBC 9.5 RBC 4.00 L Hgb 12.0 Hct 37.9 MCV 94.8 MCH 30.0 MCHC 31.7 L RDW Std Deviation 49.4 H RDW Coeff of Lenora 14.2 Plt Count 267 MPV 9.9 Immature Gran % (Auto) 0.400 Neut % (Auto) 47.4 Lymph % (Auto) 33.6 [place] % (Auto) 10.6 H Eos % (Auto) 6.5 H Baso % (Auto) 1.5 H Absolute Neuts (auto) 4.5 Absolute Lymphs (auto) 3.18 Nucleated RBC % 0 Sodium 141 Potassium 3.3 L Chloride 107 Carbon Dioxide 31.0 Anion Gap 3 L BUN 11 Creatinine 0.72 Estim Creat Clear Calc 62.43 Est GFR (MDRD) Af Amer 105 Est GFR (MDRD) Non-Af 87 BUN/Creatinine Ratio 15.3 Glucose 147 H Calcium 8.3 L Urine Opiates Screen NEGATIVE Urine Methadone Screen NEGATIVE Ur Barbiturates Screen NEGATIVE Ur Phencyclidine Scrn NEGATIVE Ur Amphetamines Screen NEGATIVE U Methamphetamin-MDMA NEGATIVE U Benzodiazepines Scrn NEGATIVE Urine Cocaine Screen NEGATIVE U Cannabinoids Screen NEGATIVE Ur Drug Screen Comment Ethyl Alcohol 12/06/20 01:00 WBC RBC Hgb Hct MCV MCH MCHC RDW Std Deviation RDW Coeff of Lenora Plt Count MPV Immature Gran % (Auto) Neut % (Auto) Lymph % (Auto) [place] % (Auto) Eos % (Auto) Baso % (Auto) Absolute Neuts (auto) Absolute Lymphs (auto) Nucleated RBC % Sodium Potassium Chloride Carbon Dioxide Anion Gap BUN Creatinine Estim Creat Clear Calc Est GFR (MDRD) Af Amer Est GFR (MDRD) Non-Af BUN/Creatinine Ratio Glucose Calcium Urine Opiates Screen Urine Methadone Screen Ur Barbiturates Screen Ur Phencyclidine Scrn Ur Amphetamines Screen U Methamphetamin-MDMA U Benzodiazepines Scrn Urine Cocaine Screen U Cannabinoids Screen Ur Drug Screen Comment Ethyl Alcohol < 3.0 Rapid Covid test negative Treatment and Re-Evaluation Comments:: Staff from [facility] presented to the emergency room and evaluated the patient. They are attempting to find placement at this time for her. Patient be signed out to oncoming physician for ultimate disposition. Discharge Plan Triage Chief Complaint: Mental Health ED Provider: Alisa Caicedo Dx/Rx/DC Orders Clinical Impression: Schizophrenia Prescriptions: No Action albuterol sulfate 1 INHALER inhaler 2 puff inhalation Q6H PRN PRN (Reason: Shortness Of Breath) RF: 0 calcium carbonate-vitamin D3 1 EACH tablet 1 ea PO DAILY RF: 0 metoprolol succinate 25 MG tablet extended release 24 hr 25 mg PO DAILY RF: 0 divalproex 250 MG tablet 250 mg PO BIDCM RF: 0 topiramate 200 MG tablet 200 mg PO BID RF: 0 pantoprazole 40 MG tablet 40 mg PO BID RF: 0 lurasidone 40 MG tablet 1 tab PO DAILY RF: 0 duloxetine 30 MG capsule,delayed release(DR/EC) 30 mg PO DAILY RF: 0 metformin 500 mg tablet 500 mg PO DAILY RF: 0 ondansetron 4 mg tablet,disintegrating 4 mg PO Q8H PRN (Reason: nausea and vomiting) Qty: 10 RF: 0 Metamucil Fiber Singles 3.4 gram Powder In Packet 1 packet PO DAILY PRN PRN (Reason: Constipation) Qty: 0 RF: 0 hydroxyzine pamoate [Vistaril] 25 mg capsule 25 mg PO TID PRN (Reason: itching) Qty: 14 RF: 0 Primary Care Provider: Fatoumata Rosen Referrals: Fatoumata Rosen MD [Primary Care Provider] -
--- NOTE | 2020-12-06 07:59 | ED.RN ---
hr remaining between 88-95 hold familia
--- NOTE | 2020-12-06 09:07 | ED.RN ---
SPOKE WITH CARMEN AT [facility]; PT WAS REFERRED TO [facility]; PT WANTS TO GO TO [facility] AND REQUESTED TO TALK WITH CRISIS; PT IS ON THE PHONE WITH CARMEN AT THIS TIME
--- NOTE | 2020-12-06 09:12 | ED.RN ---
PER CARMEN AT CRISIS. PT BEING REFERRED TO [facility] AND [facility]. PT ALSO ASKED CRISIS ABOUT A [facility] OF THE [place] BECAUSE SHE IS BEING STALKING. [facility] REFERRAL WAS AN ERROR
--- NOTE | 2020-12-06 10:34 | CM.ED ---
SW Note Patient is currently waiting placement. ELÍAS called Miranda at [facility] ([facility]). Miranda has made referral to [facility] as patient said that she liked the program as they were wheelchair accessible and worked well with her. Miranda made referral to [facility] and [facility]. Waiting acceptance. SW remains available if needs arise. Plan: Inpatient psych Geno HERNÁNDEZ
--- NOTE | 2020-12-06 11:43 | ED.RN ---
spoke with julia from [facility]. [facility] declined pt. hussein valle is looking at paperwork
--- NOTE | 2020-12-06 13:14 | EKG12_ITS ---
Test Reason : MEDICAL CLEARANCE Blood Pressure : / mmHG Vent. Rate : 062 BPM Atrial Rate : 062 BPM P-R Int : 212 ms QRS Dur : 074 ms QT Int : 436 ms P-R-T Axes : 043 -14 008 degrees QTc Int : 442 ms Sinus rhythm with 1st degree A-V block Inferior infarct , age undetermined Abnormal ECG Confirmed by ALBINO ROJAS, MOHAN ([id number]), international editorial producer HERMAN DOWNS ([id number]) on 12/09/2020 9:17:36 AM Referred By: ZENAIDA/COTY Confirmed By:FIONA POSADA MD
--- NOTE | 2020-12-06 13:15 | ED.RN ---
evans camilo called for more information on pt. nurse updated. answered questions. ekg ordered per request
--- NOTE | 2020-12-06 14:25 | CM.ED ---
ELÍAS Note ELÍAS was advised by Keila that patient needed to sign voluntary. ELÍAS spoke to Sharda from [facility] who said that [facility] only would take patient if she signed herself in voluntarily. ELÍAS met with patient. She said that she was only going to [facility] for 24 hours. ELÍAS advised that this credit underwriter could not make the determination and that was the determination made by the staff at the facility. Patient then started stating this is the law and that Dr. Mcdonnell told her this. ELÍAS then offered to call Sharda at [facility]. Elías was in room when patient spoke to Sharda. Patient said that she had people after her and had morgan all over her hands that were chemical morgan. ELÍAS noted there were no morgan on patient's hands but just circles that patient had circled with pen. ELÍAS called Sharda at [facility] and using speaker phone Sharda and this credit underwriter spoke to patient. Patient continued to voice delusions and hallucination and making reference that she was told that she could never be pink slip and only go to [facility] for 24 hours however, patient was unable to voice this person that stated it besides Dr. Mcdonnell. ( [facility] psychiatrist who is not worked there for 5 years). ELÍAS was advised that patient was accepted at [facility]. completed the pink slip for placement. ELÍAS called [facility] and indicated that patient would not be going to [facility]. No further ELÍAS needs at this time. Geno HERNÁNDEZ
[2020-12-06] MEDS: DULoxetine Hcl 30 MG Capsule PO (15:31)
[2020-12-06] MEDS: Metoprolol(XL)Succ 25 MG Tablet PO (15:31)
[2020-12-06] MEDS: metFORMIN HCl 500 MG Tablet PO (15:31)
--- NOTE | 2020-12-06 15:35 | ED.RN ---
this rn verified pt medications with jeannette bhakta. pt educated on medications and given meds with applesauce. pt requests anxiety medication and depakote. pt upset after she took her medication saying that she is noton cymbalta after swallowing it. pt visibly upset. informed about medication requests.
--- NOTE | 2020-12-06 16:27 | CM.ED ---
ELÍAS called Rebecca Tracey at . Rebecca is patient's directions sorting livestock worker. ELÍAS updated Rebecca that patient was at [facility]. ELÍAS disclosed this information as patient had been sent from [facility] ED to [facility] on a pink Slip and Rebecca needs to know the location of the patient for discharge planning. No further ELÍAS services needed. Plan: [facility] Geno HERNÁNDEZ
--- NOTE | 2020-12-06 16:49 | ED.RN ---
PT UPSET ABOUT NOT BEING ABLE TO TAKE HER DOG TO [facility]. PT STATED THAT IT IS OUR DUTY TO FIND HER A FACILITY THAT WILL ACCEPT HER DOG. PT WAS ATTEMPTING TO GO TO [facility] AND [facility]. ALL FACILITIES SAID NO TO HER DOG. PT TRIED TO WHEEL HERSELF OUTSIDE TO SIT SO THAT SHE COULD COOL OFF. PT SAYING THAT WE ARE NOT DOING WHAT WE NEED TO DO TO CARE FOR HER NEEDS. PT HAS BEEN GIVEN A PHONE SEVERAL TIMES TO CALL AND CHECK ON HER DOG. FLORINA PATIENT [employer] AND KELSEY MOLINA PERIPHERAL EDP EQUIPMENT OPERATOR AWARE
== END 2020-12-06 16:56 ==
PROVIDERS: Emergency Provider Emergency Medicine; PCP Internal Medicine
DX: F20.9 Schizophrenia, unspecified (principal); L29.9 Pruritus, unspecified; I25.10 Atherosclerotic heart disease of native coronary artery without angina pectoris; I10 Essential (primary) hypertension; K21.9 Gastro-esophageal reflux disease without esophagitis; F41.9 Anxiety disorder, unspecified; Z87.891 Personal history of nicotine dependence; Z79.84 Long term (current) use of oral hypoglycemic drugs; Z79.899 Other long term (current) drug therapy
CPT/HCPCS: 36415; 80048; 80307; 82077; 85025; 87426; 93005; 99282; 99284; 99285

== ENCOUNTER 2020-12-14 02:58 | Emergency (ER) | payer MEDICARE, MEDICAID, SELFPAY ==
[2020-12-14 02:59] VITALS: BP 118/77; PULSE 83; RESP 16; TEMP 36.3; O2SAT 96; BMI 44.5
--- NOTE | 2020-12-14 04:01 | CT_ITS ---
STUDY: CT BRAIN WITHOUT CONTRAST REASON FOR EXAM: Female, 65 years old. Altered mental status RADIATION DOSAGE (If Supplied By Facility): CTDIvol = ( 44.99 ) mGy, DLP = ( 812.98 ) mGycm TECHNIQUE: Transaxial CT imaging of the brain was performed without administration of intravenous contrast material. Individualized dose optimization techniques were used for this CT. COMPARISON: No relevant priors. FINDINGS: Normal soft tissue structures. Normal calvarium. Normal size ventricles and extra-axial spaces for the patient''s age. Normal white matter tracts of the cerebral hemispheres. Normal basal ganglia and thalami. Normal brainstem. Normal cerebellum. There is no intracranial hemorrhage. There are no findings of an acute ischemic infarction. Normal visualized paranasal sinuses. CT/Brain/Head without Contrast IMPRESSION: Normal unenhanced CT scan of the brain. Electronically Signed: Mohinder Tello MD at 5:42 EDT Tel , Service support ,
--- NOTE | 2020-12-14 04:09 | EX.ED.DYSGE1 ---
HPI History of Present Illness Chief Complaint: Itching Narrative Narrative: Patient with history of schizophrenia presenting with chief complaint of radiation morgan to her lower extremities and hands which she believes is emanating from her microwave. She states that a Officer Damon came to her house and used his phone to scan for radiation and stated that the elevation was too high at 45. Apparently patient has had previous history of this as well. She states she does not feel safe at home. She denies any other hallucinations, threats. She states that when she is hospitalized she does not have the symptoms. She denies suicidal or homicidal ideation. [facility] Medical History Anxiety Asthma Chronic pain Coronary artery disease Depression Depression Former smoker GERD (gastroesophageal reflux disease) History of fracture of hand Hypertension Irregular heart beat Irregular heart beat Migraines On home oxygen therapy PTSD (post-traumatic stress disorder) Seizures Stroke/cerebrovascular accident Home Medications albuterol sulfate 2 puff INHALATION Q6H PRN PRN 02/20/18 [History Last Taken 06/21/19 18:00] calcium carbonate-vitamin D3 1 ea PO DAILY 06/13/19 [History Last Taken 06/19/19] metoprolol succinate 25 mg PO DAILY 07/08/19 [History Last Taken 07/21/19] divalproex 250 mg PO BIDCM 11/15/19 [History Last Taken Unknown] topiramate 200 mg PO BID 11/15/19 [History Last Taken Unknown] duloxetine 30 mg PO DAILY 05/27/20 [History Last Taken Unknown] lurasidone 1 tab PO DAILY 05/27/20 [History Last Taken Unknown] pantoprazole 40 mg PO BID 05/27/20 [History Last Taken Unknown] metformin 500 mg PO DAILY 09/02/20 [History Last Taken Unknown] ondansetron 4 mg PO Q8H PRN #10 tab 09/11/20 [Rx Last Taken Unknown] psyllium husk (aspartame) [Metamucil Fiber Singles] 1 packet PO DAILY PRN PRN #0 ea 09/19/20 [Rx Last Taken Unknown] hydroxyzine pamoate [Vistaril] 25 mg PO TID PRN #14 cap 12/05/20 [Rx Last Taken Unknown] Allergy/AdvReac Type Severity Reaction Status Date / Time acetaminophen [From Tylenol] AdvReac Upset Verified 12/14/20 03:02 Stomach amoxicillin [From Augmentin] AdvReac Hives Verified 12/14/20 03:02 clavulanic acid AdvReac Hives Verified 12/14/20 03:02 [From Augmentin] sulfamethoxazole AdvReac Vomiting Verified 12/14/20 03:02 [From Bactrim] sumatriptan [From Imitrex] AdvReac Vomiting Verified 12/14/20 03:02 sumatriptan succinate AdvReac Vomiting Verified 12/14/20 03:02 [From Imitrex] trimethoprim [From Bactrim] AdvReac Vomiting Verified 12/14/20 03:02 BEE STING Allergy Anaphylaxis Uncoded 12/14/20 03:02 ANTI PSYCHOTICS AdvReac Other Uncoded 12/14/20 03:02 PAPER TAPE AdvReac Rash Uncoded 12/14/20 03:02 Family History Mother Hypertension Father Hypertension Surgical History H/O hand surgery H/O knee surgery History of cholecystectomy History of left heart catheterization (06/23/19) Social History household members: none Smoking Status: Former smoker alcohol intake: never substance use type: does not use ROS ROS ED Constitutional Constitutional ED: Denies chills or fever(s) Eyes Eyes: Denies blurry vision or diplopia ENT ENT ED: Denies sore throat Cardiovascular Cardiovascular: Denies chest pain or palpitations Respiratory/Chest Respiratory/Chest: Denies cough, dyspnea or sputum Gastrointestinal Gastrointestinal: Denies abdominal pain, nausea or vomiting Genitourinary Genitourinary ED: Denies dysuria or hematuria Musculoskeletal Musculoskeletal: Denies arthralgias, back pain, myalgias or neck pain Integumentary Reports rash Neurologic Neurologic: Denies headache(s) or paresthesias Psychiatric Psychiatric: Denies suicidal ideation or suicidal thoughts EXAM Physical Exam Const Vital Signs: 12/14/20 02:59 12/14/20 04:19 Temperature 97.3 F L Temperature Source Temporal Pulse Rate 83 Respiratory Rate 16 16 Blood Pressure 118/77 Blood Pressure Mean 90 Pulse Ox 96 Oxygen Delivery Method Room Air Positive well nourished General Appearance ED: NAD; Negative for pallor HEENT Reports moist mucous membranes trauma Eyes PERRL and EOMs intact bilaterally Resp normal respiratory effort and clear to auscultation bilaterally Cardio regular rate and regular rhythm Extremity normal to inspection Neuro oriented x3, CN's II-XII intact bilaterally and no sensory deficits noted Sensorium / Orientation: alert Motor Exam: strength 5/5 throughout Skin no rashes or lesions noted General Skin Exam: Negative for jaundice or pallor MDM MDM MDM Narrative Medical decision making narrative: Patient presenting with main concern of radiation morgan to the skin on her arms and legs from the microwave. She states the special police officer that came to her house measure the microwaves/radiation in her microwave with his phone and was told it is too elevated for her to be there. She has no other complaints. Her CBC is essentially normal. Her BMP shows normal renal function. Her potassium was 3.3 and this was replaced orally. EtOH is negative. Urinalysis and urine drug screen are negative. Chest x-ray on my interpretation shows no acute cardiopulmonary process and the radiologist does agree. CT brain is interpreted by the radiologist shows no acute intracranial abnormality. There is a pending Depakote level and the patient will be signed out to incoming ED physician for follow-up of this. I think the patient likely will be placed inpatient. Her last visit was to [facility]. Impression: 1. Delusions Lab Data Attestation: I reviewed the patient's lab results. Labs: Laboratory Results - last 24 hr 12/14/20 12/14/20 12/14/20 04:14 04:14 04:14 WBC 9.9 RBC 4.49 Hgb 13.4 Hct 42.2 MCV 94.0 MCH 29.8 MCHC 31.8 L RDW Std Deviation 48.0 H RDW Coeff of Lenora 13.9 Plt Count 276 MPV 10.1 Immature Gran % (Auto) 0.300 Neut % (Auto) 44.6 L Lymph % (Auto) 38.7 [place] % (Auto) 11.3 H Eos % (Auto) 4.2 Baso % (Auto) 0.9 Absolute Neuts (auto) 4.4 Absolute Lymphs (auto) 3.81 Nucleated RBC % 0 Sodium 141 Potassium 3.3 L Chloride 105 Carbon Dioxide 31.0 Anion Gap 5 BUN 16 Creatinine 0.80 Estim Creat Clear Calc 56.19 Est GFR (MDRD) Af Amer 93 Est GFR (MDRD) Non-Af 77 BUN/Creatinine Ratio 20.0 Glucose 109 H Calcium 8.9 Urine Color Urine Clarity Urine pH Ur Specific [place] Urine Protein Urine Glucose (UA) Urine Ketones Urine Occult Blood Urine Nitrite Urine Bilirubin Urine Urobilinogen Ur Leukocyte Esterase Urine RBC Urine WBC Ur Squamous Epith Cells Urine Bacteria Urine Mucus Urine Opiates Screen Urine Methadone Screen Ur Barbiturates Screen Ur Phencyclidine Scrn Ur Amphetamines Screen U Methamphetamin-MDMA U Benzodiazepines Scrn Urine Cocaine Screen U Cannabinoids Screen Ur Drug Screen Comment Ethyl Alcohol < 3.0 12/14/20 12/14/20 04:21 04:21 WBC RBC Hgb Hct MCV MCH MCHC RDW Std Deviation RDW Coeff of Lenora Plt Count MPV Immature Gran % (Auto) Neut % (Auto) Lymph % (Auto) [place] % (Auto) Eos % (Auto) Baso % (Auto) Absolute Neuts (auto) Absolute Lymphs (auto) Nucleated RBC % Sodium Potassium Chloride Carbon Dioxide Anion Gap BUN Creatinine Estim Creat Clear Calc Est GFR (MDRD) Af Amer Est GFR (MDRD) Non-Af BUN/Creatinine Ratio Glucose Calcium Urine Color Yellow Urine Clarity Clear Urine pH 5.0 Ur Specific [place] 1.025 Urine Protein Negative Urine Glucose (UA) Normal Urine Ketones Negative Urine Occult Blood Negative Urine Nitrite Negative Urine Bilirubin Negative Urine Urobilinogen Normal Ur Leukocyte Esterase 25 H Urine RBC 0 SEEN Urine WBC 0-5 SEEN Ur Squamous Epith Cells 0-5 SEEN Urine Bacteria 2+ Urine Mucus 1+ Urine Opiates Screen NEGATIVE Urine Methadone Screen NEGATIVE Ur Barbiturates Screen NEGATIVE Ur Phencyclidine Scrn NEGATIVE Ur Amphetamines Screen NEGATIVE U Methamphetamin-MDMA NEGATIVE U Benzodiazepines Scrn NEGATIVE Urine Cocaine Screen NEGATIVE U Cannabinoids Screen NEGATIVE Ur Drug Screen Comment Ethyl Alcohol Radiography Diagnostic Testing: Radiology Impression Brain CT 12/14/20 04:01 IMPRESSION: Normal unenhanced CT scan of the brain. Electronically Signed: Mohinder Tello MD at 5:42 EDT Tel , Service support , Chest X-Ray 12/14/20 05:36 IMPRESSION: Normal x-ray examination of the chest. Electronically Signed: Mohinder Tello MD at 5:50 EDT Tel , Service support , Discharge Plan Triage Chief Complaint: Itching ED Provider: Alexander Serrato Dx/Rx/DC Orders Prescriptions: No Action albuterol sulfate 1 INHALER inhaler 2 puff inhalation Q6H PRN PRN (Reason: Shortness Of Breath) RF: 0 calcium carbonate-vitamin D3 1 EACH tablet 1 ea PO DAILY RF: 0 metoprolol succinate 25 MG tablet extended release 24 hr 25 mg PO DAILY RF: 0 divalproex 250 MG tablet 250 mg PO BIDCM RF: 0 topiramate 200 MG tablet 200 mg PO BID RF: 0 pantoprazole 40 MG tablet 40 mg PO BID RF: 0 lurasidone 40 MG tablet 1 tab PO DAILY RF: 0 duloxetine 30 MG capsule,delayed release(DR/EC) 30 mg PO DAILY RF: 0 metformin 500 mg tablet 500 mg PO DAILY RF: 0 ondansetron 4 mg tablet,disintegrating 4 mg PO Q8H PRN (Reason: nausea and vomiting) Qty: 10 RF: 0 Metamucil Fiber Singles 3.4 gram Powder In Packet 1 packet PO DAILY PRN PRN (Reason: Constipation) Qty: 0 RF: 0 hydroxyzine pamoate [Vistaril] 25 mg capsule 25 mg PO TID PRN (Reason: itching) Qty: 14 RF: 0 Primary Care Provider: Fatoumata Rosen
[2020-12-14 04:19] VITALS: RESP 16
[2020-12-14 04:21] LABS: Absolute Lymphocyte Count 3.81 X10^3/uL (0.83-4.51); Absolute Neutrophil Count 4.4 X10^3/uL (2.0-7.7); Basophil# 0.09 X10^3/uL; Basophil% 0.9 % (0-1); Eosinophil# 0.41 X10^3/uL; Eosinophils% 4.2 % (0-5); Hematocrit 42.2 % (37-47); Hemoglobin 13.4 g/dL (12.0-15.0); Lymphocyte # 3.81 X10^3/ul (0.83-4.51); Lymphocyte % 38.7 % (19-41); Mean Corp Hgb Conc 31.8 g/dL (32-36); Mean Corpuscular Hgb 29.8 pg (27.0-32.0); Mean Platelet Vol. 10.1 fl (6.2-12.0); Monocyte# 1.11 X10^3/uL; Monocyte% 11.3 % (0-10); NRBC Flagged by Analyzer 0 % (0-5); Neutrophil % 44.6 % (47-70); Platelet Count 276 K/mm3 (150-450); RBC Distribution Width CV 13.9 % (11.6-14.6); Red Blood Count 4.49 M/mm3 (4.2-5.4); White Blood Count 9.9 K/mm3 (4.4-11.0)
[2020-12-14 04:39] LABS: Anion Gap 5 (5-15); BUN 16 mg/dL (7-18); Calcium,Total 8.9 mg/dL (8.5-10.1); Chloride 105 mmol/L (98-107); EST Glomerular Filtration Rate 77 mL/min (>60); Est Glom Filt Rate - Afr Amer 93 mL/min (>60); Estimated Creatinine Clearance 56.19 ml/min; Glucose 109 mg/dL (74-106); Potassium 3.3 mmol/L (3.5-5.1); Sodium Level 141 mmol/L (136-145)
[2020-12-14 04:39] LABS: Red Blood Cells-Urine 0 SEEN /hpf (0-5)
[2020-12-14 04:41] LABS: Color, Urine Yellow (Yellow); Glucose, Dipstick Normal (Normal); Ketone-Dipstick Negative (Negative); Leukocyte Esterase-Dipstick 25 /ul (Negative); Nitrite-Dipstick Negative (Negative); Occult Blood-Urine Negative /ul (Negative); Protein-Dipstick Negative (Negative); Specific Gravity, Urine 1.025 (1.002-1.030); Urine Bilirubin Dipstick Negative (Negative); Urine Clarity Clear (Clear); Urine Urobilinogen Normal (Normal)
[2020-12-14 04:43] LABS: Alcohol, Blood (Medical)-Serum < 3.0 mg/dL
[2020-12-14 04:46] LABS: Squamous Epithelial Cells - UA 0-5 SEEN /hpf (5-10); White Blood Cells 0-5 SEEN /hpf (0-5)
[2020-12-14 04:47] LABS: Bacteria 2+ /hpf (None Seen); Mucous, Urine 1+ /hpf (<or=2+)
[2020-12-14 04:56] LABS: Amphetamine Urine VISTA NEGATIVE (<1000 ng/mL); Barbiturate Urine VISTA NEGATIVE (< 200 ng/mL); Benzodiazepine Urine VISTA NEGATIVE (< 200 ng/mL); Cocaine Urine VISTA NEGATIVE (< 300 ng/mL); Ecstacy Urine VISTA NEGATIVE (< 500 ng/mL); Methadone Urine VISTA NEGATIVE (< 300 ng/mL); PCP Urine VISTA NEGATIVE (< 25 ng/mL); THC Urine VISTA NEGATIVE (< 50 ng/mL); Vista UDS pH Range 5
--- NOTE | 2020-12-14 05:36 | RAD_ITS ---
STUDY: X-RAY CHEST REASON FOR EXAM: Female, 65 years old. Cough TECHNIQUE: Portable, upright, AP chest radiograph COMPARISON: None. FINDINGS: The lungs are clear and expanded. There is no demonstrated pleural abnormality. Normal size heart. Normal mediastinum and ita. Normal visualized pulmonary arteries. Normal visualized aortic arch and descending thoracic aorta. Normal visualized thoracic spine. Normal visualized ribs, clavicles, and shoulders. There is no demonstrated abnormality of the visualized soft tissue structures of the upper abdomen. RAD/Chest 1 View (Portable) IMPRESSION: Normal x-ray examination of the chest. Electronically Signed: Mohinder Tello MD at 5:50 EDT Tel , Service support ,
[2020-12-14 07:50] LABS: Valproic Acid (Depakene) Level 26 ug/mL (50-100)
[2020-12-14 08:06] VITALS: BP 124/77; PULSE 62; RESP 15; O2SAT 97
== END 2020-12-14 08:07 | disposition home or self-care (01) ==
PROVIDERS: Emergency Provider Student in an Organized Health Care Education/Training Program; PCP Internal Medicine
DX: F22 Delusional disorders (principal); F20.9 Schizophrenia, unspecified; F41.9 Anxiety disorder, unspecified; I25.10 Atherosclerotic heart disease of native coronary artery without angina pectoris; J45.909 Unspecified asthma, uncomplicated; K21.9 Gastro-esophageal reflux disease without esophagitis; I10 Essential (primary) hypertension; G43.909 Migraine, unspecified, not intractable, without status migrainosus; R56.9 Unspecified convulsions; Z79.84 Long term (current) use of oral hypoglycemic drugs; Z87.891 Personal history of nicotine dependence; Z79.899 Other long term (current) drug therapy
CPT/HCPCS: 70450; 71045; 80048; 80164; 80307; 81001; 82077; 85025; 87426; 99285

== ENCOUNTER 2020-12-15 17:10 | Emergency (ER) | payer MEDICARE, MEDICAID, SELFPAY ==
[2020-12-15 17:11] VITALS: BP 119/67; PULSE 87; RESP 16; TEMP 36.6; O2SAT 98; BMI 43.9
--- NOTE | 2020-12-15 18:34 | CT_ITS ---
STUDY: CT BRAIN WITHOUT CONTRAST REASON FOR EXAM: Female, 65 years old. fall RADIATION DOSAGE (If Supplied By Facility): CTDIvol = ( 44.99 ) mGy, DLP = ( 812.98 ) mGycm TECHNIQUE: Transaxial CT imaging of the brain was performed without administration of intravenous contrast material. Individualized dose optimization techniques were used for this CT. COMPARISON: 12/14/2020. FINDINGS: Normal soft tissue structures. Normal calvarium. Normal size ventricles and extra-axial spaces for the patient''s age. Mild periventricular white matter ischemic change.. Normal basal ganglia and thalami. Normal brainstem. Normal cerebellum. Empty sella deformity likely of no significance. There is no intracranial hemorrhage. There are no findings of an acute ischemic infarction. Normal visualized paranasal sinuses. CT/Brain/Head without Contrast IMPRESSION: Mild periventricular white matter ischemic change. No evidence for acute intracranial bleed Electronically Signed: Georges Aldridge MD at 20:07 EDT , Service support ,
--- NOTE | 2020-12-15 18:35 | EX.ED.DYSGE1 ---
HPI History of Present Illness Chief Complaint: Back Informant: patient Onset/Context/Timing Onset: Today Current Severity: Mild Maximum Severity: Moderate Narrative Narrative: Patient present secondary to migraine and left upper back pain after falling out of bed this morning. She denies loss of consciousness. She is not on anticoagulants. She is not taken anything for pain. [facility] Medical History Anxiety Asthma Chronic pain Coronary artery disease Depression Depression Former smoker GERD (gastroesophageal reflux disease) History of fracture of hand Hypertension Irregular heart beat Irregular heart beat Migraines On home oxygen therapy PTSD (post-traumatic stress disorder) Seizures Stroke/cerebrovascular accident Home Medications albuterol sulfate 2 puff INHALATION Q6H PRN PRN 02/20/18 [History Last Taken 06/21/19 18:00] calcium carbonate-vitamin D3 1 ea PO DAILY 06/13/19 [History Last Taken 06/19/19] metoprolol succinate 25 mg PO DAILY 07/08/19 [History Last Taken 07/21/19] divalproex 250 mg PO BIDCM 11/15/19 [History Last Taken Unknown] topiramate 200 mg PO BID 11/15/19 [History Last Taken Unknown] duloxetine 30 mg PO DAILY 05/27/20 [History Last Taken Unknown] lurasidone 1 tab PO DAILY 05/27/20 [History Last Taken Unknown] pantoprazole 40 mg PO BID 05/27/20 [History Last Taken Unknown] metformin 500 mg PO DAILY 09/02/20 [History Last Taken Unknown] ondansetron 4 mg PO Q8H PRN #10 tab 09/11/20 [Rx Last Taken Unknown] psyllium husk (aspartame) [Metamucil Fiber Singles] 1 packet PO DAILY PRN PRN #0 ea 09/19/20 [Rx Last Taken Unknown] hydroxyzine pamoate [Vistaril] 25 mg PO TID PRN #14 cap 12/05/20 [Rx Last Taken Unknown] Allergy/AdvReac Type Severity Reaction Status Date / Time acetaminophen [From Tylenol] AdvReac Upset Verified 12/15/20 17:11 Stomach amoxicillin [From Augmentin] AdvReac Hives Verified 12/15/20 17:11 clavulanic acid AdvReac Hives Verified 12/15/20 17:11 [From Augmentin] sulfamethoxazole AdvReac Vomiting Verified 12/15/20 17:11 [From Bactrim] sumatriptan [From Imitrex] AdvReac Vomiting Verified 12/15/20 17:11 sumatriptan succinate AdvReac Vomiting Verified 12/15/20 17:11 [From Imitrex] trimethoprim [From Bactrim] AdvReac Vomiting Verified 12/15/20 17:11 BEE STING Allergy Anaphylaxis Uncoded 12/15/20 17:11 ANTI PSYCHOTICS AdvReac Other Uncoded 12/15/20 17:11 PAPER TAPE AdvReac Rash Uncoded 12/15/20 17:11 Family History Mother Hypertension Father Hypertension Surgical History H/O hand surgery H/O knee surgery History of cholecystectomy History of left heart catheterization (06/23/19) Social History household members: none Smoking Status: Former smoker alcohol intake: never substance use type: does not use ROS ROS ED Constitutional Constitutional ED: Denies chills or fever(s) Eyes Eyes: Denies change in vision ENT ENT ED: Denies sore throat Cardiovascular Cardiovascular: Denies chest pain Respiratory/Chest Respiratory/Chest: Denies cough or dyspnea Gastrointestinal Gastrointestinal: Denies abdominal pain, diarrhea, nausea or vomiting Genitourinary Genitourinary ED: Denies dysuria Musculoskeletal Musculoskeletal: Reports back pain Integumentary Denies rash Neurologic Neurologic: Reports headache(s); Denies paresthesias or weakness Psychiatric Psychiatric: Denies anxiety or depression Allergic/Immunologic Allergic/Immunologic ED: Denies urticaria EXAM Physical Exam Const Vital Signs: 12/15/20 17:11 12/15/20 20:51 Temperature 98 F Temperature Source Temporal Pulse Rate 87 74 Respiratory Rate 16 18 Blood Pressure 119/67 121/74 H Blood Pressure Mean 84 Pulse Ox 98 99 Oxygen Delivery Method Room Air Positive well nourished and well developed General Appearance ED: well developed HEENT Reports normocephalic and head/scalp atraumatic Eyes PERRL and EOMs intact bilaterally Neck supple Chest Wall inspection of chest normal and palpation of chest normal Resp normal respiratory effort and clear to auscultation bilaterally Cardio regular rate and regular rhythm GI normal to inspection, nondistended, normoactive bowel sounds Palpation: soft Back/Spine Back/Spine Narrative: Reproducible tenderness around the left scapula. Good range of motion left upper extremity. Neuro oriented x3 and no sensory deficits noted Sensorium / Orientation: alert Motor Exam: strength 5/5 throughout Psych mental status grossly normal Skin no rashes or lesions noted MDM MDM MDM Narrative Medical decision making narrative: Lidoderm patch was applied topically to the left scapular region. Head CT and chest x-ray 2 views obtained. Radiography Chest X-Ray - ED: 2 View, Read by ED Physician, Normal, Heart, Lungs and Mediastinum Diagnostic Testing: Radiology Impression Brain CT 12/15/20 18:34 IMPRESSION: Mild periventricular white matter ischemic change. No evidence for acute intracranial bleed Electronically Signed: Georges Aldridge MD at 20:07 EDT , Service support , Chest X-Ray 12/15/20 18:45 IMPRESSION: No acute cardiopulmonary pathology Electronically Signed: Georges Aldridge MD at 19:33 EDT , Service support , Treatment and Re-Evaluation Comments:: CT head unremarkable. Chest x-ray reveals no acute findings. I discussed with the patient that she has a back contusion. She states that she is unable to take Tylenol, anti-inflammatories, or tramadol. I advised her she can use Lidoderm patches topically. I will not be writing her narcotics. Discharge Plan Triage Chief Complaint: Back ED Provider: Alisa Caicedo Dx/Rx/DC Orders Clinical Impression: Back contusion Instructions: ED Back Contusion Prescriptions: No Action albuterol sulfate 1 INHALER inhaler 2 puff inhalation Q6H PRN PRN (Reason: Shortness Of Breath) RF: 0 calcium carbonate-vitamin D3 1 EACH tablet 1 ea PO DAILY RF: 0 metoprolol succinate 25 MG tablet extended release 24 hr 25 mg PO DAILY RF: 0 divalproex 250 MG tablet 250 mg PO BIDCM RF: 0 topiramate 200 MG tablet 200 mg PO BID RF: 0 pantoprazole 40 MG tablet 40 mg PO BID RF: 0 lurasidone 40 MG tablet 1 tab PO DAILY RF: 0 duloxetine 30 MG capsule,delayed release(DR/EC) 30 mg PO DAILY RF: 0 metformin 500 mg tablet 500 mg PO DAILY RF: 0 ondansetron 4 mg tablet,disintegrating 4 mg PO Q8H PRN (Reason: nausea and vomiting) Qty: 10 RF: 0 Metamucil Fiber Singles 3.4 gram Powder In Packet 1 packet PO DAILY PRN PRN (Reason: Constipation) Qty: 0 RF: 0 hydroxyzine pamoate [Vistaril] 25 mg capsule 25 mg PO TID PRN (Reason: itching) Qty: 14 RF: 0 Primary Care Provider: Fatoumata Rosen Referrals: Fatoumata Rosen MD [Primary Care Provider] - 1 Week if not improving Disposition Disposition: Home, Self Care Discharge Date/Time: 12/15/20 21:27
--- NOTE | 2020-12-15 18:45 | RAD_ITS ---
STUDY: X-RAY CHEST REASON FOR EXAM: Female, 65 years old. fall, back pain TECHNIQUE: PA and lateral COMPARISON: 12/14/2020 FINDINGS: Less than optimal inspiratory effort is seen however the lungs are clear. There is no demonstrated pleural abnormality. Normal size heart. Normal mediastinum and ita. Normal visualized pulmonary arteries. Normal visualized aortic arch and descending thoracic aorta. Dorsal spine demonstrates mild degenerative change. Normal visualized ribs, clavicles, and shoulders. There is no demonstrated abnormality of the visualized soft tissue structures of the upper abdomen. RAD/Chest PA and Lateral IMPRESSION: No acute cardiopulmonary pathology Electronically Signed: Georges Aldridge MD at 19:33 EDT , Service support ,
[2020-12-15] MEDS: Lidocaine 5% Patch 1 PATCH TOPICAL (19:00)
[2020-12-15 20:51] VITALS: BP 121/74; PULSE 74; RESP 18; O2SAT 99
== END 2020-12-15 21:27 | disposition home or self-care (01) ==
PROVIDERS: Emergency Provider Emergency Medicine; PCP Internal Medicine
DX: S20.229A Contusion of unspecified back wall of thorax, initial encounter (principal); I25.10 Atherosclerotic heart disease of native coronary artery without angina pectoris; J45.909 Unspecified asthma, uncomplicated; I10 Essential (primary) hypertension; K21.9 Gastro-esophageal reflux disease without esophagitis; F32.9 Major depressive disorder, single episode, unspecified; Z79.84 Long term (current) use of oral hypoglycemic drugs; Z87.891 Personal history of nicotine dependence; Z79.899 Other long term (current) drug therapy; W06.XXXA Fall from bed, initial encounter
CPT/HCPCS: 70450; 71046; 99283

== ENCOUNTER 2021-02-13 23:23 | Emergency (ER) | payer MEDICARE, MEDICAID, SELFPAY ==
[2021-02-13 23:24] VITALS: BP 130/89; PULSE 94; RESP 16; TEMP 36.8; O2SAT 97; BMI 43.6
--- NOTE | 2021-02-14 00:02 | RAD_ITS ---
STUDY: X-RAY - RIGHT KNEE REASON FOR EXAM: Female, 65 years old. knee pain TECHNIQUE: 5 view(s) of the knee. COMPARISON: 02/27/2019 FINDINGS: Status post knee arthroplasty. No acute fracture or dislocation. No knee joint effusion. The soft tissue structures are unremarkable. RAD/Knee 3 Views IMPRESSION: Status post right knee arthroplasty without evidence for acute fracture or hardware failure. Electronically Signed: Rigoberto Cabrera MD at 1:01 EDT Tel , Service support ,
--- NOTE | 2021-02-14 00:02 | RAD_ITS ---
STUDY: X-RAY - LUMBAR SPINE REASON FOR EXAM: Female, 65 years old. back pain TECHNIQUE: 3 view(s) of the lumbar spine were obtained. COMPARISON: Lumbar spine radiograph from 10/14/2020 FINDINGS: There is straightening of the normal lumbar lordosis. There is diffuse facet arthrosis. There is multilevel endplate spondylosis of the lumbar vertebrae. Normal disc space heights. The soft tissue structures are unremarkable. Status post right hip arthroplasty. RAD/Lumbar Spine 2 or 3 Views IMPRESSION: Diffuse facet arthrosis. No loss of vertebral body height or alignment. Electronically Signed: Rigoberto Cabrera MD at 0:59 EDT Tel , Service support ,
--- NOTE | 2021-02-14 00:18 | ED.RN ---
Pt told she cannot have anything to eat or drink until after imaging has been reviewed. Pt then proceeds to pull out a bottle of coca cola out of her purse and quickly drink half the bottle. Approx 5 minutes later patient vomits 600cc into emesis bag.
[2021-02-14] MEDS: Ondansetron ODT 4 MG Tablet PO (00:23)
[2021-02-14] MEDS: Morphine 4 MG/ML Syringe IM (00:49)
[2021-02-14 02:29] VITALS: BP 146/86; PULSE 76; RESP 16; O2SAT 98
--- NOTE | 2021-02-14 02:33 | EDS_ITS ---
HPI HPI - Fall History of Present Illness Chief Complaint: Fall Narrative Narrative: Patient presenting with right knee pain and left lower back pain. She states that she was supposed to use her wheelchair but did not she walked to the bathroom and then was having trouble getting up off of the toilet. She states she fell and twisted her back and landed on her right knee. She denies head injury or LOC. Patient denies any paresthesias. Patient felt otherwise well prior to this. Patient also said that she had some vaginal spotting. She states this only happened once. She does not have any abdominal pain or pelvic pain. [facility] Medical History Anxiety Asthma Chronic pain Coronary artery disease Depression Depression Former smoker GERD (gastroesophageal reflux disease) History of fracture of hand Hypertension Irregular heart beat Irregular heart beat Migraines On home oxygen therapy PTSD (post-traumatic stress disorder) Seizures Stroke/cerebrovascular accident Home Medications albuterol sulfate 2 puff INHALATION Q6H PRN PRN 02/20/18 [History Last Taken 06/21/19 18:00] calcium carbonate-vitamin D3 1 ea PO DAILY 06/13/19 [History Last Taken 06/19/19] metoprolol succinate 25 mg PO DAILY 07/08/19 [History Last Taken 07/21/19] divalproex 250 mg PO BIDCM 11/15/19 [History Last Taken Unknown] topiramate 200 mg PO BID 11/15/19 [History Last Taken Unknown] duloxetine 30 mg PO DAILY 05/27/20 [History Last Taken Unknown] lurasidone 1 tab PO DAILY 05/27/20 [History Last Taken Unknown] pantoprazole 40 mg PO BID 05/27/20 [History Last Taken Unknown] metformin 500 mg PO DAILY 09/02/20 [History Last Taken Unknown] ondansetron 4 mg PO Q8H PRN #10 tab 09/11/20 [Rx Last Taken Unknown] psyllium husk (aspartame) [Metamucil Fiber Singles] 1 packet PO DAILY PRN PRN #0 ea 09/19/20 [Rx Last Taken Unknown] hydroxyzine pamoate [Vistaril] 25 mg PO TID PRN #14 cap 12/05/20 [Rx Last Taken Unknown] Allergy/AdvReac Type Severity Reaction Status Date / Time acetaminophen [From Tylenol] AdvReac Upset Verified 12/15/20 17:11 Stomach amoxicillin [From Augmentin] AdvReac Hives Verified 12/15/20 17:11 clavulanic acid AdvReac Hives Verified 12/15/20 17:11 [From Augmentin] sulfamethoxazole AdvReac Vomiting Verified 12/15/20 17:11 [From Bactrim] sumatriptan [From Imitrex] AdvReac Vomiting Verified 12/15/20 17:11 sumatriptan succinate AdvReac Vomiting Verified 12/15/20 17:11 [From Imitrex] trimethoprim [From Bactrim] AdvReac Vomiting Verified 12/15/20 17:11 BEE STING Allergy Anaphylaxis Uncoded 12/15/20 17:11 ANTI PSYCHOTICS AdvReac Other Uncoded 12/15/20 17:11 PAPER TAPE AdvReac Rash Uncoded 12/15/20 17:11 Family History Mother Hypertension Father Hypertension Surgical History H/O hand surgery H/O knee surgery History of cholecystectomy History of left heart catheterization (06/23/19) Social History household members: none Smoking Status: Former smoker alcohol intake: never substance use type: does not use ROS ROS ED Constitutional Constitutional ED: Denies chills, fever(s) or sweats Eyes Eyes: Denies blurry vision or change in vision ENT ENT ED: Denies ear pain or sore throat Cardiovascular Cardiovascular: Denies chest pain, palpitations or racing heartbeat Respiratory/Chest Respiratory/Chest: Denies cough, dyspnea or sputum Gastrointestinal Gastrointestinal: Denies abdominal pain, constipation, diarrhea, nausea or vomiting Genitourinary Genitourinary ED: Denies dysuria, hematuria or urinary frequency Musculoskeletal Musculoskeletal: Reports back pain and other Details: Right knee pain ; Denies arthralgias, myalgias or neck pain Integumentary Denies abscess, Abrasions or rash Neurologic Neurologic: Denies headache(s), paresthesias or weakness Psychiatric Psychiatric: Denies anxiety, depression, suicidal ideation or suicidal thoughts Endocrine Endocrinology: Denies polydipsia or polyuria EXAM Physical Exam Const Vital Signs: 02/13/21 23:24 02/13/21 23:27 02/14/21 02:29 Temperature 98.2 F Temperature Source Oral Pulse Rate 94 76 Respiratory Rate 16 16 Respiratory Effort Normal Non-Labored Respiratory Depth Normal Respiratory Pattern Normal Blood Pressure 130/89 H 146/86 H Blood Pressure Mean 102 Pulse Ox 97 98 Oxygen Delivery Method Room Air Positive well nourished General Appearance ED: NAD; Negative for pallor HEENT Reports normocephalic, head/scalp atraumatic and moist mucous membranes atraumatic Eyes PERRL and EOMs intact bilaterally Neck no lymphadenopathy and supple Chest Wall inspection of chest normal and palpation of chest normal Resp normal respiratory effort and clear to auscultation bilaterally Auscultation: Negative for rales, rhonchi or wheezes Cardio regular rate and regular rhythm GI normal to inspection, nondistended, normoactive bowel sounds and non-distended Auscultation: normoactive bowel sounds Palpation: soft Narrative: Deferred Back/Spine no CVA tenderness Back/Spine Narrative: Mild lower lumbar paraspinal muscular tenderness diffusely on the bilateral lower back. No midline deformity or step-off. Extremity Extremity Narrative: Tenderness to palpation over the right patella. Right extensor mechanism is intact. No ligamentous laxity. There is an old midline scar over the right knee which is well-healing. Mild bruising of the patella. No deformity. Neuro oriented x3 and CN's II-XII intact bilaterally Sensorium / Orientation: alert Motor Exam: strength 5/5 throughout Psych mental status grossly normal Attitude: No agitated Skin no rashes or lesions noted and no wounds General Skin Exam: Negative for jaundice or pallor MDM MDM MDM Narrative Medical decision making narrative: Patient was given IM morphine 4 mg and Zofran. I did obtain an x-ray of the right knee which on my interpretation shows no acute fracture or subluxation. On the lumbar spine there appears to be arthritic changes without any acute process. Radiologist agrees with both. Patient is feeling improved and will be discharged home with return precautions. She was counseled to use her wheelchair or to keep it near the in the future. She acknowledges understanding. In addition to this the patient has had some spotting vaginally. She wishes to follow-up with her percussion welding machine operator for this as she prefers a female. Since she only described a small amount of bleeding I believe this is reasonable. Patient is discharged home in stable condition. Impression: 1. Mechanical fall 2. Right knee contusion 3. Lumbar strain 4. Vaginal bleeding?mild Radiography Diagnostic Testing: Clinical Impression(s) from Imaging Studies Knee X-Ray 02/14/21 00:02 IMPRESSION: Status post right knee arthroplasty without evidence for acute fracture or hardware failure. Electronically Signed: Rigoberto Cabrera MD at 1:01 EDT Tel , Service support , Lumbar Spine X-Ray 02/14/21 00:02 IMPRESSION: Diffuse facet arthrosis. No loss of vertebral body height or alignment. Electronically Signed: Rigoberto Cabrera MD at 0:59 EDT Tel , Service support , Discharge Plan Triage Chief Complaint: Fall ED Provider: Alexander Serrato Dx/Rx/DC Orders Instructions: ED Back Sprain/Strain, ED Contusion, Lower Extremity, ED Dysfunctional Uterine Bleeding, ED Fall Prevention Prescriptions: No Action albuterol sulfate 1 INHALER inhaler 2 puff inhalation Q6H PRN PRN (Reason: Shortness Of Breath) RF: 0 calcium carbonate-vitamin D3 1 EACH tablet 1 ea PO DAILY RF: 0 metoprolol succinate 25 MG tablet extended release 24 hr 25 mg PO DAILY RF: 0 divalproex 250 MG tablet 250 mg PO BIDCM RF: 0 topiramate 200 MG tablet 200 mg PO BID RF: 0 pantoprazole 40 MG tablet 40 mg PO BID RF: 0 lurasidone 40 MG tablet 1 tab PO DAILY RF: 0 duloxetine 30 MG capsule,delayed release(DR/EC) 30 mg PO DAILY RF: 0 metformin 500 mg tablet 500 mg PO DAILY RF: 0 ondansetron 4 mg tablet,disintegrating 4 mg PO Q8H PRN (Reason: nausea and vomiting) Qty: 10 RF: 0 Metamucil Fiber Singles 3.4 gram Powder In Packet 1 packet PO DAILY PRN PRN (Reason: Constipation) Qty: 0 RF: 0 hydroxyzine pamoate [Vistaril] 25 mg capsule 25 mg PO TID PRN (Reason: itching) Qty: 14 RF: 0 Primary Care Provider: Fatoumata Rosen Referrals: Fatoumata Rosen MD [Primary Care Provider] - Disposition Disposition: Home, Self Care
--- NOTE | 2021-02-14 13:53 | CM.ED ---
ELÍAS Note: EÍLAS received voice mail from individual identifying herself as Ann-Marie Crump at [phone]. ELÍAS called Ann-Marie and she said that she is the social insurance analyst working with [employer]. She said that patient has been doing multiple crazy stuff and scaring other tenants. Ann-Marie said that she is concerned that patient is safe on her own and taking the meds as prescribed. Ann-Marie said that [facility] had called today and asked about patient. Ann-Marie said that patient was just released from a psych institute and stated how do we know she is fine?. 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 ELÍAS asked if Adult Protective Services is involved. Ann-Marie then asked me to speak with the Supervisor Fish Processing, Lo Joe [phone] Daniel Sanchez (Management Group for [facility]). ELÍAS spoke to Lo Joe. She said that patient wakes other tenants up in the morning and sometimes she is up at 1-2am. Lo said that patient reports they can see her. Lo said that this is scarey to her other residents as she includes people.. and will name off different people and government and individuals that have been at her house. Lo said that patient is going to be leaving as she gave notice but still has her unit. Lo said that the general utility maintenance repairer was called and stated that patient reports they know where she lives and someone is calling her and bugging her phone. Lo said that patient has been set up in a hotel 2 x to assist her in noting that no one is bothering her or doing something to her. Lo said that she asked patient to sign SOFIA so she could call her son and patient said he will believe other people which Lo said people like the government. Lo said that the police and EMS have concerns regarding patient. Lo said that last night she called maintenance to get into her apartment and then when maintenance came she was inside the house and talking about them taping the phone and murdering her dog. ELÍAS asked Lo if she has contacted APS. Lo said no as she has just been involved with this case for 1 1/2 months. ELÍAS advised that if they have concerns regarding patient and her needing a guardianship or safe place to contact APS and gave the number for APS. ELÍAS then advised that if patient is reporting paranoia or MH concerns that [facility]. ELÍAS provided Lo with numbers for the [facility] and [facility]PS. ELÍAS asked if Lo had any other issues or concerns and she said no. ELÍAS spoke to Keila, winch derrick operator, who said that patient had been here this morning and was absolutely fine. ELÍAS updated Angella Villalba, Rn Licensed Practical regarding this call. ELÍAS left voice mail for Wallace advising Lo may be calling her regarding concerns regarding patient. Of note, patient was not admitted from the ED on this visit. Plan: ELÍAS referred Lo to APS and Crisis. Geno HERNÁNDEZ
== END 2021-02-14 04:49 | disposition home or self-care (01) ==
PROVIDERS: Emergency Provider Student in an Organized Health Care Education/Training Program; PCP Internal Medicine
DX: S80.01XA Contusion of right knee, initial encounter (principal); S39.012A Strain of muscle, fascia and tendon of lower back, initial encounter; N93.9 Abnormal uterine and vaginal bleeding, unspecified; I25.10 Atherosclerotic heart disease of native coronary artery without angina pectoris; Z87.891 Personal history of nicotine dependence; W19.XXXA Unspecified fall, initial encounter; X58.XXXA Exposure to other specified factors, initial encounter
CPT/HCPCS: 72100; 73562; 96372; 99284

== ENCOUNTER 2021-02-14 07:37 | Emergency (ER) | payer MEDICARE, MEDICAID, SELFPAY ==
[2021-02-14 07:38] VITALS: BP 133/72; PULSE 90; RESP 18; TEMP 36.6; O2SAT 95; BMI 42.9
--- NOTE | 2021-02-14 07:45 | EX.ED.DYSGE1 ---
HPI History of Present Illness Chief Complaint: General Illness Narrative Narrative: Patient was seen last night, she had a mechanical fall injuring her back, she went back home and went to the bathroom and noticed a vaginal protrusion. She tells me she has not had that in the past. She has had 4 vaginal deliveries and 2 miscarriages. She has no abdominal pain fevers chills or any other symptoms, in reviewing with her she has had quite a few urinary tract infections in the past few months. [facility] Medical History Anxiety Asthma Chronic pain Coronary artery disease Depression Depression Former smoker GERD (gastroesophageal reflux disease) History of fracture of hand Hypertension Irregular heart beat Irregular heart beat Migraines On home oxygen therapy PTSD (post-traumatic stress disorder) Seizures Stroke/cerebrovascular accident Home Medications albuterol sulfate 2 puff INHALATION Q6H PRN PRN 02/20/18 [History Last Taken 06/21/19 18:00] calcium carbonate-vitamin D3 1 ea PO DAILY 06/13/19 [History Last Taken 06/19/19] metoprolol succinate 25 mg PO DAILY 07/08/19 [History Last Taken 07/21/19] divalproex 250 mg PO BIDCM 11/15/19 [History Last Taken Unknown] topiramate 200 mg PO BID 11/15/19 [History Last Taken Unknown] duloxetine 30 mg PO DAILY 05/27/20 [History Last Taken Unknown] lurasidone 1 tab PO DAILY 05/27/20 [History Last Taken Unknown] pantoprazole 40 mg PO BID 05/27/20 [History Last Taken Unknown] metformin 500 mg PO DAILY 09/02/20 [History Last Taken Unknown] ondansetron 4 mg PO Q8H PRN #10 tab 09/11/20 [Rx Last Taken Unknown] psyllium husk (aspartame) [Metamucil Fiber Singles] 1 packet PO DAILY PRN PRN #0 ea 09/19/20 [Rx Last Taken Unknown] hydroxyzine pamoate [Vistaril] 25 mg PO TID PRN #14 cap 12/05/20 [Rx Last Taken Unknown] Allergy/AdvReac Type Severity Reaction Status Date / Time acetaminophen [From Tylenol] AdvReac Upset Verified 02/14/21 07:44 Stomach amoxicillin [From Augmentin] AdvReac Hives Verified 02/14/21 07:44 clavulanic acid AdvReac Hives Verified 02/14/21 07:44 [From Augmentin] sulfamethoxazole AdvReac Vomiting Verified 02/14/21 07:44 [From Bactrim] sumatriptan [From Imitrex] AdvReac Vomiting Verified 02/14/21 07:44 sumatriptan succinate AdvReac Vomiting Verified 02/14/21 07:44 [From Imitrex] trimethoprim [From Bactrim] AdvReac Vomiting Verified 02/14/21 07:44 BEE STING Allergy Anaphylaxis Uncoded 02/14/21 07:44 ANTI PSYCHOTICS AdvReac Other Uncoded 02/14/21 07:44 PAPER TAPE AdvReac Rash Uncoded 02/14/21 07:44 Family History Mother Hypertension Father Hypertension Surgical History H/O hand surgery H/O knee surgery History of cholecystectomy History of left heart catheterization (06/23/19) Social History household members: none Smoking Status: Former smoker alcohol intake: never substance use type: does not use ROS ROS ED ROS Narrative Past medical history: Reviewed, it is extensive, includes COPD, obesity, COPD, schizophrenia, diabetes, hypertension Medications: Reviewed Social history: Noncontributory Review of systems: All systems negative except as indicated General: Negative Cardiovascular: No chest pain Respiratory: No shortness of breath or cough Gastrointestinal: No abdominal pain, nausea vomiting or diarrhea Genitourinary: Frequent UTIs but no current dysuria or urgency or frequency. Vaginal protrusion Musculoskeletal: Back pain as in HPI Skin: No rash Hematologic: No easy bleeding or easy bruising EXAM Physical Exam Narrative Exam Narrative: Physical exam General: Patient appears comfortable in bed she does appear slightly anxious Head: Normocephalic, Atraumatic Cardiovascular: Regular rate, Regular rhythm Respiratory: No distress, CTA bilaterally Abdomen: Soft, Nontender, Nondistended : She has an obvious uterine prolapse which is easily reduced. Back: Some lumbar tenderness. Extremities: Nontender, No edema Skin: Normal color, No rash Const Vital Signs: 02/14/21 07:38 Temperature 97.8 F Temperature Source Temporal Pulse Rate 90 Respiratory Rate 18 Blood Pressure 133/72 H Blood Pressure Mean 92 Pulse Ox 95 Oxygen Delivery Method Room Air MDM MDM MDM Narrative Medical decision making narrative: Patient has a uterine prolapse, I instructed her on manually reducing it until she can see ABSORBER OPERATOR for permanent treatment. I especially instructed her on how to reduce it after she urinates so she does not get UTIs from retention. She understands this. She will be discharged in stable condition. Discharge Plan Triage Chief Complaint: General Illness ED Provider: Mohinder Friend Dx/Rx/DC Orders Clinical Impression: Uterine prolapse Instructions: Pelvic Organ Prolapse Prescriptions: No Action albuterol sulfate 1 INHALER inhaler 2 puff inhalation Q6H PRN PRN (Reason: Shortness Of Breath) RF: 0 calcium carbonate-vitamin D3 1 EACH tablet 1 ea PO DAILY RF: 0 metoprolol succinate 25 MG tablet extended release 24 hr 25 mg PO DAILY RF: 0 divalproex 250 MG tablet 250 mg PO BIDCM RF: 0 topiramate 200 MG tablet 200 mg PO BID RF: 0 pantoprazole 40 MG tablet 40 mg PO BID RF: 0 lurasidone 40 MG tablet 1 tab PO DAILY RF: 0 duloxetine 30 MG capsule,delayed release(DR/EC) 30 mg PO DAILY RF: 0 metformin 500 mg tablet 500 mg PO DAILY RF: 0 ondansetron 4 mg tablet,disintegrating 4 mg PO Q8H PRN (Reason: nausea and vomiting) Qty: 10 RF: 0 Metamucil Fiber Singles 3.4 gram Powder In Packet 1 packet PO DAILY PRN PRN (Reason: Constipation) Qty: 0 RF: 0 hydroxyzine pamoate [Vistaril] 25 mg capsule 25 mg PO TID PRN (Reason: itching) Qty: 14 RF: 0 Primary Care Provider: Fatoumata Rosen Referrals: Fatoumata Rosen MD [Primary Care Provider] - Lola Stone MD [STAFF PHYSICIAN] - Disposition Disposition: Home, Self Care
[2021-02-14 08:04] VITALS: BP 127/67
== END 2021-02-14 08:04 | disposition home or self-care (01) ==
LOC: ED 08:02
PROVIDERS: Emergency Provider Emergency Medicine; PCP Internal Medicine
DX: N81.4 Uterovaginal prolapse, unspecified (principal); E66.9 Obesity, unspecified; E11.9 Type 2 diabetes mellitus without complications; I25.10 Atherosclerotic heart disease of native coronary artery without angina pectoris; I10 Essential (primary) hypertension; K21.9 Gastro-esophageal reflux disease without esophagitis; J44.9 Chronic obstructive pulmonary disease, unspecified; R56.9 Unspecified convulsions; F20.9 Schizophrenia, unspecified; F32.9 Major depressive disorder, single episode, unspecified; Z79.899 Other long term (current) drug therapy; Z87.891 Personal history of nicotine dependence
CPT/HCPCS: 99284

== ENCOUNTER 2021-02-14 19:26 | Emergency (ER) | payer MEDICARE, MEDICAID, SELFPAY ==
[2021-02-14 19:27] VITALS: BP 119/64; PULSE 95; RESP 18; TEMP 37.1; O2SAT 97; BMI 37.6
--- NOTE | 2021-02-14 22:08 | CT_ITS ---
STUDY: CT BRAIN WITHOUT CONTRAST REASON FOR EXAM: Female, 65 years old. Headache RADIATION DOSAGE (If Supplied By Facility): CTDIvol = ( 44.99 ) mGy, DLP = ( 829.85 ) mGycm TECHNIQUE: Transaxial CT imaging of the brain was performed without administration of intravenous contrast material. Individualized dose optimization techniques were used for this CT. COMPARISON: CT brain 12/15/2020 FINDINGS: Normal soft tissue structures. Normal calvarium. Normal size ventricles and extra-axial spaces for the patient''s age. Normal white matter tracts of the cerebral hemispheres. Normal basal ganglia and thalami. Normal brainstem. Normal cerebellum. There is no intracranial hemorrhage. There are no findings of an acute ischemic infarction. Normal visualized paranasal sinuses. CT/Brain/Head without Contrast IMPRESSION: Normal unenhanced CT scan of the brain. Electronically Signed: Urban Buckley MD at 23:26 EDT , Service support ,
--- NOTE | 2021-02-14 22:08 | RAD_ITS ---
STUDY: X-RAY CHEST REASON FOR EXAM: Female, 65 years old. Cough TECHNIQUE: Single frontal view of the chest. COMPARISON: 12/15/2020 FINDINGS: The lungs are clear and expanded. There is no demonstrated pleural abnormality. Normal size heart. Normal mediastinum and ita. Normal visualized pulmonary arteries. Normal visualized aortic arch and descending thoracic aorta. Normal visualized thoracic spine. Normal visualized ribs, clavicles, and shoulders. There is no demonstrated abnormality of the visualized soft tissue structures of the upper abdomen. RAD/Chest 1 View (Portable) IMPRESSION: Normal x-ray examination of the chest. Electronically Signed: Urban Buckley MD at 23:46 EDT , Service support ,
--- NOTE | 2021-02-14 22:09 | EKG12_ITS ---
Test Reason : DYSRHYTHMIA Blood Pressure : / mmHG Vent. Rate : 084 BPM Atrial Rate : 084 BPM P-R Int : 206 ms QRS Dur : 068 ms QT Int : 380 ms P-R-T Axes : 041 -16 013 degrees QTc Int : 449 ms Normal sinus rhythm Inferior infarct , age undetermined Abnormal ECG Confirmed by ALBINO ROJAS, MOHAN ([id number]), television news video editor HERMAN DOWNS ([id number]) on 02/16/2021 1:45:38 P M Referred By: ANN Confirmed By:FIONA POSADA MD
--- NOTE | 2021-02-14 22:12 | EX.ED.DYSGE1 ---
HPI History of Present Illness Chief Complaint: Dizziness Informant: patient Onset/Context/Timing Onset: Yesterday Context: Gradual Onset Timing: Continuous Quality: Lightheaded Location: Generalized Worsened by: Eating Relieved by: Nothing Narrative Narrative: Patient presents with dizziness, nausea, vomiting, and shaking that began yesterday. Patient states it is gradually gotten worse. Patient was seen here twice earlier today for a fall and for a uterine prolapse. Patient states she was given some Zofran while she was here and was discharged home. Patient states that her nausea and vomiting came back. Patient states she is unable to keep anything down. Patient admits to some dysuria. Patient denies any fevers or chills. Patient does admit to a headache. Patient states she feels weak with standing. [facility] Medical History Anxiety Asthma Chronic pain Coronary artery disease Depression Depression Former smoker GERD (gastroesophageal reflux disease) History of fracture of hand Hypertension Irregular heart beat Irregular heart beat Migraines On home oxygen therapy PTSD (post-traumatic stress disorder) Seizures Stroke/cerebrovascular accident Home Medications albuterol sulfate 2 puff INHALATION Q6H PRN PRN 02/20/18 [History Last Taken 06/21/19 18:00] calcium carbonate-vitamin D3 1 ea PO DAILY 06/13/19 [History Last Taken 06/19/19] metoprolol succinate 25 mg PO DAILY 07/08/19 [History Last Taken 07/21/19] divalproex 250 mg PO BIDCM 11/15/19 [History Last Taken Unknown] topiramate 200 mg PO BID 11/15/19 [History Last Taken Unknown] duloxetine 30 mg PO DAILY 05/27/20 [History Last Taken Unknown] lurasidone 1 tab PO DAILY 05/27/20 [History Last Taken Unknown] pantoprazole 40 mg PO BID 05/27/20 [History Last Taken Unknown] metformin 500 mg PO DAILY 09/02/20 [History Last Taken Unknown] ondansetron 4 mg PO Q8H PRN #10 tab 09/11/20 [Rx Last Taken Unknown] psyllium husk (aspartame) [Metamucil Fiber Singles] 1 packet PO DAILY PRN PRN #0 ea 09/19/20 [Rx Last Taken Unknown] hydroxyzine pamoate [Vistaril] 25 mg PO TID PRN #14 cap 12/05/20 [Rx Last Taken Unknown] Allergy/AdvReac Type Severity Reaction Status Date / Time acetaminophen [From Tylenol] AdvReac Upset Verified 02/14/21 19:29 Stomach amoxicillin [From Augmentin] AdvReac Hives Verified 02/14/21 19:29 clavulanic acid AdvReac Hives Verified 02/14/21 19:29 [From Augmentin] sulfamethoxazole AdvReac Vomiting Verified 02/14/21 19:29 [From Bactrim] sumatriptan [From Imitrex] AdvReac Vomiting Verified 02/14/21 19:29 sumatriptan succinate AdvReac Vomiting Verified 02/14/21 19:29 [From Imitrex] trimethoprim [From Bactrim] AdvReac Vomiting Verified 02/14/21 19:29 BEE STING Allergy Anaphylaxis Uncoded 02/14/21 19:29 ANTI PSYCHOTICS AdvReac Other Uncoded 02/14/21 19:29 PAPER TAPE AdvReac Rash Uncoded 02/14/21 19:29 Family History Mother Hypertension Father Hypertension Surgical History H/O hand surgery H/O knee surgery History of cholecystectomy History of left heart catheterization (06/23/19) Social History household members: none Smoking Status: Current some day smoker tobacco type: cigarettes alcohol intake: never substance use type: does not use ROS ROS ED Constitutional Constitutional ED: Denies chills or fever(s) Eyes Eyes: Denies blurry vision or change in vision ENT ENT ED: Denies rhinorrhea or sore throat Cardiovascular Cardiovascular: Denies chest pain or palpitations Respiratory/Chest Respiratory/Chest: Reports cough; Denies dyspnea Gastrointestinal Gastrointestinal: Reports nausea and vomiting Genitourinary Genitourinary ED: Reports dysuria; Denies hematuria Musculoskeletal Musculoskeletal: Reports back pain and neck pain Integumentary Reports rash; Denies abscess Neurologic Neurologic: Reports headache(s) and weakness Allergic/Immunologic Allergic/Immunologic ED: Denies mouth swelling or urticaria EXAM Physical Exam Const Vital Signs: 02/14/21 19:27 02/14/21 21:46 02/14/21 22:41 Temperature 98.7 F Temperature Source Temporal Pulse Rate 95 Pulse Rate [Lying] 81 Pulse Rate [Sitting] 93 Pulse Rate [Standing] 95 Respiratory Rate 18 Respiratory Effort Normal Non-Labored Respiratory Pattern Normal Blood Pressure 119/64 Blood Pressure [Lying] 140/75 H Blood Pressure [Sitting] 129/83 H Blood Pressure [Standing] 124/79 H Blood Pressure Mean 82 Blood Pressure Mean [Lying] 96 Blood Pressure Mean [Sitting] 98 Blood Pressure Mean [Standing] 94 Pulse Ox 97 Oxygen Delivery Method Room Air 02/15/21 01:29 02/15/21 03:19 Temperature Temperature Source Pulse Rate 84 Pulse Rate [Lying] Pulse Rate [Sitting] Pulse Rate [Standing] Respiratory Rate 16 16 Respiratory Effort Respiratory Pattern Blood Pressure 105/68 Blood Pressure [Lying] Blood Pressure [Sitting] Blood Pressure [Standing] Blood Pressure Mean 80 Blood Pressure Mean [Lying] Blood Pressure Mean [Sitting] Blood Pressure Mean [Standing] Pulse Ox 96 Oxygen Delivery Method Room Air Positive well nourished, well developed and obese General Appearance ED: well developed Nutritional Appearance: obese HEENT Reports moist mucous membranes Neck supple and no JVD Resp normal respiratory effort and clear to auscultation bilaterally Cardio regular rate, regular rhythm and no murmurs GI normal to inspection, nondistended, normoactive bowel sounds Palpation: soft and tender epigastric, LLQ, RLQ, LUQ, RUQ, periumbilical and suprapubic; Negative for guarding or rebound tenderness present Extremity normal to inspection General Extremety ED: Negative for edema or tenderness General Extremity: Negative for edema Neuro oriented x3, CN's II-XII intact bilaterally and no sensory deficits noted Sensorium / Orientation: alert Motor Exam: strength 5/5 throughout Psych mental status grossly normal Skin no rashes or lesions noted MDM MDM MDM Narrative Medical decision making narrative: Patient was given a dose of Zofran here. CBC and comprehensive metabolic profile were obtained were within normal limits. Depakote level was obtained and was less than 3. Urinalysis was obtained. There is no evidence of urinary tract infection. CT scan of the brain was obtained. There is no acute intracranial abnormality. This was interpreted by the radiologist and reviewed by myself. Portable 1 view chest x-ray was obtained. On my interpretation, lung rey are clear. There is normal cardiac silhouette. Bony thorax is normal. There is no acute process noted. Radiologist also interpreted the x-ray and agrees. Patient was ambulated here in the emergency department. Patient was steady on her feet. Patient states her nausea has improved. Patient was instructed to follow-up with her primary care physician in 5 to 7 days. Patient understood and was agreeable with the plan. All questions were answered. Lab Data Attestation: I reviewed the patient's lab results. Labs: Laboratory Results - last 24 hr 02/14/21 02/14/21 02/14/21 22:40 22:40 22:40 WBC 10.2 RBC 4.30 Hgb 13.1 Hct 39.9 MCV 92.8 MCH 30.5 MCHC 32.8 RDW Std Deviation 45.0 H RDW Coeff of Lenora 13.3 Plt Count 245 MPV 11.5 Immature Gran % (Auto) 0.300 Neut % (Auto) 52.9 Lymph % (Auto) 32.6 Russell % (Auto) 10.6 H Eos % (Auto) 3.1 Baso % (Auto) 0.5 Absolute Neuts (auto) 5.4 Absolute Lymphs (auto) 3.33 Nucleated RBC % 0 Sodium 139 Potassium 3.4 L Chloride 105 Carbon Dioxide 29.0 Anion Gap 5 BUN 13 Creatinine 0.78 Estim Creat Clear Calc 57.63 Est GFR (MDRD) Af Amer 96 Est GFR (MDRD) Non-Af 79 BUN/Creatinine Ratio 16.7 Glucose 123 H Calcium 8.8 Total Bilirubin 0.30 AST 28 ALT 27 Alkaline Phosphatase 69 Total Protein 7.3 Albumin 3.4 Globulin 3.9 Albumin/Globulin Ratio 0.9 Urine Color Urine Clarity Urine pH Ur Specific Portal Urine Protein Urine Glucose (UA) Urine Ketones Urine Occult Blood Urine Nitrite Urine Bilirubin Urine Urobilinogen Ur Leukocyte Esterase Urine RBC Urine WBC Ur Squamous Epith Cells Urine Bacteria Urine Mucus Valproic Acid < 3 L 02/14/21 22:40 WBC RBC Hgb Hct MCV MCH MCHC RDW Std Deviation RDW Coeff of Lenora Plt Count MPV Immature Gran % (Auto) Neut % (Auto) Lymph % (Auto) Russell % (Auto) Eos % (Auto) Baso % (Auto) Absolute Neuts (auto) Absolute Lymphs (auto) Nucleated RBC % Sodium Potassium Chloride Carbon Dioxide Anion Gap BUN Creatinine Estim Creat Clear Calc Est GFR (MDRD) Af Amer Est GFR (MDRD) Non-Af BUN/Creatinine Ratio Glucose Calcium Total Bilirubin AST ALT Alkaline Phosphatase Total Protein Albumin Globulin Albumin/Globulin Ratio Urine Color Yellow Urine Clarity Clear Urine pH 6.5 Ur Specific Portal 1.010 Urine Protein Negative Urine Glucose (UA) Normal Urine Ketones Negative Urine Occult Blood Negative Urine Nitrite Negative Urine Bilirubin Negative Urine Urobilinogen Normal Ur Leukocyte Esterase 100 H Urine RBC 0 SEEN Urine WBC 0-5 SEEN Ur Squamous Epith Cells 0-5 SEEN Urine Bacteria 0 SEEN Urine Mucus 0 SEEN Valproic Acid Radiography Chest X-Ray - ED: 1 View, Read by ED Physician and Normal Diagnostic Testing: Clinical Impression(s) from Imaging Studies Brain CT 02/14/21 22:08 IMPRESSION: Normal unenhanced CT scan of the brain. Electronically Signed: Urban Buckley MD at 23:26 EDT , Service support , Chest X-Ray 02/14/21 22:08 IMPRESSION: Normal x-ray examination of the chest. Electronically Signed: Urban Buckley MD at 23:46 EDT , Service support , EKG Initial EKG: Attestation: I personally reviewed and interpreted this EKG as follows: Interpretation: Sinus Rhythm (84) and No Acute Injury Pattern Discharge Plan Triage Chief Complaint: Dizziness ED Provider: Jorje Westbrook Dx/Rx/DC Orders Clinical Impression: Dizziness, nonspecific Instructions: ED Dizziness, Uncertain Cause Prescriptions: No Action albuterol sulfate 1 INHALER inhaler 2 puff inhalation Q6H PRN PRN (Reason: Shortness Of Breath) RF: 0 calcium carbonate-vitamin D3 1 EACH tablet 1 ea PO DAILY RF: 0 metoprolol succinate 25 MG tablet extended release 24 hr 25 mg PO DAILY RF: 0 divalproex 250 MG tablet 250 mg PO BIDCM RF: 0 topiramate 200 MG tablet 200 mg PO BID RF: 0 pantoprazole 40 MG tablet 40 mg PO BID RF: 0 lurasidone 40 MG tablet 1 tab PO DAILY RF: 0 duloxetine 30 MG capsule,delayed release(DR/EC) 30 mg PO DAILY RF: 0 metformin 500 mg tablet 500 mg PO DAILY RF: 0 ondansetron 4 mg tablet,disintegrating 4 mg PO Q8H PRN (Reason: nausea and vomiting) Qty: 10 RF: 0 Metamucil Fiber Singles 3.4 gram Powder In Packet 1 packet PO DAILY PRN PRN (Reason: Constipation) Qty: 0 RF: 0 hydroxyzine pamoate [Vistaril] 25 mg capsule 25 mg PO TID PRN (Reason: itching) Qty: 14 RF: 0 Primary Care Provider: Fatoumata Rosen Referrals: Fatoumata Rosen MD [Primary Care Provider] - 3-5 Days Disposition Disposition: Home, Self Care Discharge Date/Time: 02/15/21 05:27
[2021-02-14] MEDS: Ondansetron 4 MG/2 ML Vial IV (22:38)
[2021-02-14 22:41] VITALS: BP 124/79; BP 129/83; BP 140/75; PULSE 81; PULSE 93; PULSE 95
[2021-02-14 22:51] LABS: Bacteria 0 SEEN /hpf (None Seen); Mucous, Urine 0 SEEN /hpf (<or=2+); Red Blood Cells-Urine 0 SEEN /hpf (0-5)
[2021-02-14 22:58] LABS: Absolute Lymphocyte Count 3.33 X10^3/uL (0.83-4.51); Absolute Neutrophil Count 5.4 X10^3/uL (2.0-7.7); Basophil# 0.05 X10^3/uL; Basophil% 0.5 % (0-1); Color, Urine Yellow (Yellow); Eosinophil# 0.32 X10^3/uL; Eosinophils% 3.1 % (0-5); Glucose, Dipstick Normal (Normal); Hematocrit 39.9 % (37-47); Hemoglobin 13.1 g/dL (12.0-15.0); Ketone-Dipstick Negative (Negative); Leukocyte Esterase-Dipstick 100 /ul (Negative); Lymphocyte # 3.33 X10^3/ul (0.83-4.51); Lymphocyte % 32.6 % (19-41); Mean Corp Hgb Conc 32.8 g/dL (32-36); Mean Corpuscular Hgb 30.5 pg (27.0-32.0); Mean Corpuscular Volume 92.8 fL (81-99); Mean Platelet Vol. 11.5 fl (6.2-12.0); Monocyte# 1.08 X10^3/uL; Monocyte% 10.6 % (0-10); NRBC Flagged by Analyzer 0 % (0-5); Neutrophil # 5.39 X10^3/uL (2.7-7.7); Neutrophil % 52.9 % (47-70); Nitrite-Dipstick Negative (Negative); Occult Blood-Urine Negative /ul (Negative); Platelet Count 245 K/mm3 (150-450); Protein-Dipstick Negative (Negative); RBC Distribution Width CV 13.3 % (11.6-14.6); Urine Bilirubin Dipstick Negative (Negative); Urine Clarity Clear (Clear); Urine Urobilinogen Normal (Normal); Urine pH 6.5 (5.0 - 8.0); White Blood Count 10.2 K/mm3 (4.4-11.0)
[2021-02-14 23:06] LABS: Squamous Epithelial Cells - UA 0-5 SEEN /hpf (5-10); White Blood Cells 0-5 SEEN /hpf (0-5)
[2021-02-14 23:13] LABS: ALB/GLOB Ratio 0.9 RATIO (0.9-2.4); AST(SGOT) 28 U/L (15-37); Alanine Aminotransfer ALT/SGPT 27 U/L (13-56); Albumin, Serum 3.4 g/dL (3.2-5.0); Alkaline Phosphatase 69 U/L (45-117); Anion Gap 5 (5-15); BUN 13 mg/dL (7-18); BUN/Creat Ratio 16.7 RATIO (10-20); Calcium,Total 8.8 mg/dL (8.5-10.1); Chloride 105 mmol/L (98-107); Creatinine, Serum 0.78 mg/dL (0.55-1.02); EST Glomerular Filtration Rate 79 mL/min (>60); Est Glom Filt Rate - Afr Amer 96 mL/min (>60); Estimated Creatinine Clearance 57.63 ml/min; Globulin 3.9 g/dL (2.2-4.2); Glucose 123 mg/dL (74-106); Potassium 3.4 mmol/L (3.5-5.1); Protein, Total 7.3 g/dL (6.4-8.2); Sodium Level 139 mmol/L (136-145)
[2021-02-15 00:03] LABS: Valproic Acid (Depakene) Level < 3 ug/mL (50-100)
[2021-02-15 01:29] VITALS: BP 105/68; PULSE 84; RESP 16; O2SAT 96
[2021-02-15 03:19] VITALS: RESP 16
== END 2021-02-15 05:27 | disposition home or self-care (01) ==
PROVIDERS: Emergency Provider Emergency Medicine; PCP Internal Medicine
DX: R42 Dizziness and giddiness (principal); R11.2 Nausea with vomiting, unspecified; F17.210 Nicotine dependence, cigarettes, uncomplicated; N81.4 Uterovaginal prolapse, unspecified; E66.9 Obesity, unspecified; E11.9 Type 2 diabetes mellitus without complications; I25.10 Atherosclerotic heart disease of native coronary artery without angina pectoris; I10 Essential (primary) hypertension; K21.9 Gastro-esophageal reflux disease without esophagitis; J44.9 Chronic obstructive pulmonary disease, unspecified; R56.9 Unspecified convulsions; F20.9 Schizophrenia, unspecified; F32.9 Major depressive disorder, single episode, unspecified; G43.909 Migraine, unspecified, not intractable, without status migrainosus; Z79.899 Other long term (current) drug therapy; Z79.84 Long term (current) use of oral hypoglycemic drugs
CPT/HCPCS: 70450; 71045; 80053; 80164; 81001; 85025; 93005; 96374; 99284; 99285; A4216; J2405

== ENCOUNTER 2021-02-18 18:10 | Emergency (ER) | payer MEDICARE, MEDICAID, SELFPAY ==
[2021-02-18 18:11] VITALS: BP 110/88; PULSE 96; RESP 20; TEMP 36.3; O2SAT 97; BMI 38.4
--- NOTE | 2021-02-18 18:28 | RAD_ITS ---
STUDY: X-RAY CHEST REASON FOR EXAM: Female, 65 years old. COUGH TECHNIQUE: AP COMPARISON: 02/14/2021 FINDINGS: Right hemidiaphragm is elevated. There is no demonstrated pleural abnormality. Normal size heart. Normal mediastinum and ita. Normal visualized pulmonary arteries. There is atherosclerotic tortuosity of the aortic arch and descending thoracic aorta. Normal visualized thoracic spine. Normal visualized ribs, clavicles, and shoulders. There is no demonstrated abnormality of the visualized soft tissue structures of the upper abdomen. RAD/Chest 1 View (Portable) IMPRESSION: Stable, nonacute portable x-ray examination of the chest. Electronically Signed: Hemant Jean-Baptiste MD ([place]) at 18:49 EDT , Service support ,
--- NOTE | 2021-02-18 19:36 | ED.VIS.DYS ---
HPI History of Present Illness Chief Complaint: Cough Detail of Chief Complaint: Productive cough, shortness of breath, upper respiratory symptoms Informant: patient Onset/Context/Timing Onset: Days (2 to 3 days ago) Context: sudden Timing: Intermittent Quality: Positive for Dyspnea on exertion and Wheezing; Negative for Orthopnea and PND Current Severity: Mild Worsened by: Exertion and Coughing; Not Worsened By Lying flat Relieved by: Rest Associated Symptoms cough, rhinorrhea, post nasal drip, ear pain, fever, sore throat, subjective and clear sputum; Negative for chills, sweats, white sputum, yellow sputum or green sputum Chest Pain: Positive for Intermittent and Sharp Narrative Narrative: Patient is a 65-year-old woman with multiple medical problems who continues to smoke and presents with rhinorrhea, congestion, sore throat and cough productive of clear sputum. She does have history of COPD. She has been smoking recently. She is not on oxygen. She denies history of VTE. Denies leg pain, swelling discoloration. She reports transient intermittent sharp chest pain. There is no alleviating, exacerbating precipitating factor. She denies GI symptoms. She denies symptoms. She denies leg pain, swelling discoloration. She does have history of atypical chest pain. PE Risk Factors: Negative for Cancer, OCP + Smoking + > 35, Prior DVT or PE, Recent immobilization, Recent surgery and Recent travel Prior similar symptoms: Yes (COPD) Recent Illness/Hospitalization: No PFSH PFSH Medical History Anxiety Asthma Chronic pain Coronary artery disease Depression Depression Former smoker GERD (gastroesophageal reflux disease) History of fracture of hand Hypertension Irregular heart beat Irregular heart beat Migraines On home oxygen therapy PTSD (post-traumatic stress disorder) Seizures Stroke/cerebrovascular accident Home Medications albuterol sulfate 2 puff INHALATION Q6H PRN PRN 02/20/18 [History Last Taken 06/21/19 18:00] calcium carbonate-vitamin D3 1 ea PO DAILY 06/13/19 [History Last Taken 06/19/19] metoprolol succinate 25 mg PO DAILY 07/08/19 [History Last Taken 07/21/19] divalproex 250 mg PO BIDCM 11/15/19 [History Last Taken Unknown] topiramate 200 mg PO BID 11/15/19 [History Last Taken Unknown] duloxetine 30 mg PO DAILY 05/27/20 [History Last Taken Unknown] lurasidone 1 tab PO DAILY 05/27/20 [History Last Taken Unknown] pantoprazole 40 mg PO BID 05/27/20 [History Last Taken Unknown] metformin 500 mg PO DAILY 09/02/20 [History Last Taken Unknown] ondansetron 4 mg PO Q8H PRN #10 tab 09/11/20 [Rx Last Taken Unknown] psyllium husk (aspartame) [Metamucil Fiber Singles] 1 packet PO DAILY PRN PRN #0 ea 09/19/20 [Rx Last Taken Unknown] hydroxyzine pamoate [Vistaril] 25 mg PO TID PRN #14 cap 12/05/20 [Rx Last Taken Unknown] alendronate [Fosamax] 70 mg PO QWEEK 02/18/21 [History Last Taken Unknown] furosemide [Lasix] 20 mg PO DAILY 02/18/21 [History Last Taken Unknown] mirtazapine 30 mg PO QHS 02/18/21 [History Last Taken Unknown] pravastatin 80 mg PO QHS 02/18/21 [History Last Taken Unknown] prazosin 5 mg PO QHS 02/18/21 [History Last Taken Unknown] Allergy/AdvReac Type Severity Reaction Status Date / Time acetaminophen [From Tylenol] AdvReac Upset Verified 02/14/21 19:29 Stomach amoxicillin [From Augmentin] AdvReac Hives Verified 02/14/21 19:29 clavulanic acid AdvReac Hives Verified 02/14/21 19:29 [From Augmentin] sulfamethoxazole AdvReac Vomiting Verified 02/14/21 19:29 [From Bactrim] sumatriptan [From Imitrex] AdvReac Vomiting Verified 02/14/21 19:29 sumatriptan succinate AdvReac Vomiting Verified 02/14/21 19:29 [From Imitrex] trimethoprim [From Bactrim] AdvReac Vomiting Verified 02/14/21 19:29 BEE STING Allergy Anaphylaxis Uncoded 02/14/21 19:29 ANTI PSYCHOTICS AdvReac Other Uncoded 02/14/21 19:29 PAPER TAPE AdvReac Rash Uncoded 02/14/21 19:29 Family History Mother Hypertension Father Hypertension Surgical History H/O hand surgery H/O knee surgery History of cholecystectomy History of left heart catheterization (06/23/19) Social History household members: none Smoking Status: Current some day smoker tobacco type: cigarettes alcohol intake: never substance use type: does not use ROS ROS ED Constitutional Constitutional ED: Reports fever(s); Denies chills, sweats or weight loss Eyes Eyes: Denies blurry vision, change in vision or diplopia ENT ENT ED: Reports ear pain bilateral, rhinorrhea and sore throat Cardiovascular Cardiovascular: Reports chest pain and palpitations; Denies orthopnea, paroxysmal nocturnal dyspnea or racing heartbeat Respiratory/Chest Respiratory/Chest: Reports cough, dyspnea, dyspnea on exertion and sputum; Denies orthopnea or paroxysmal nocturnal dyspnea Gastrointestinal Gastrointestinal: Denies abdominal pain, constipation, diarrhea, nausea or vomiting Genitourinary Genitourinary ED: Denies dysuria, hematuria or urinary frequency Musculoskeletal Musculoskeletal: Denies arthralgias, back pain, myalgias or neck pain Integumentary Denies rash Neurologic Neurologic: Reports weakness; Denies headache(s) or paresthesias Psychiatric Psychiatric: Denies depression Endocrine Endocrinology: Denies polydipsia, polyphagia or polyuria Hematologic/Lymphatic Hematologic/Lymphatic: Denies easy bleeding or easy bruising EXAM Physical Exam Const Vital Signs: 02/18/21 18:11 02/18/21 20:05 Temperature 97.4 F L Temperature Source Temporal Pulse Rate 96 Respiratory Rate 20 H Blood Pressure 110/88 H Blood Pressure Mean 95 Pulse Ox 97 94 Oxygen Delivery Method Room Air Room Air Positive well nourished, well developed, obese and unkempt General Appearance ED: unkempt, well developed and NAD Nutritional Appearance: obese HEENT Reports TM's clear and moist mucous membranes HEENT Narrative: Head is normocephalic. Posterior pharynx without erythema or exudate. Nares patent with mild clear drainage noted. atraumatic Tympanic Membrane ED: Yes TM's clear Eyes PERRL and EOMs intact bilaterally General Eye ED: Negative for pale conjunctiva or scleral icterus Neck no lymphadenopathy, supple, no meningeal signs and no JVD Resp normal respiratory effort and clear to auscultation bilaterally Cardio regular rate, regular rhythm, S1 normal heart sound, S2 normal heart sound and no murmurs GI non-tender, non-distended and no masses Auscultation: normoactive bowel sounds Palpation: soft Back/Spine no CVA tenderness and normal to inspection Extremity normal to inspection General Extremety ED: Negative for edema or tenderness General Extremity: Negative for edema Neuro oriented x3, CN's II-XII intact bilaterally and no sensory deficits noted Sensorium / Orientation: alert and oriented to person Motor Exam: strength 5/5 throughout Psych mental status grossly normal Appearance: unkempt Thought Process: normal thought process Skin no wounds Lesions: no lesions Rashes: no rashes MDM MDM MDM Narrative Medical decision making narrative: Differential diagnosis is viral infection, bacterial infection, pneumonia, exacerbation COPD. Chest x-ray, Covid test was obtained appropriate blood work to assess for anemia, renal function etc. Lab Data Attestation: I reviewed the patient's lab results. Lab results narrative: Patient would not allow the nurse to place an IV. She would not allow more than 1 attempt at blood draw. Therefore there was no blood drawn. Covid test is positive. This is the cause of her shortness of breath and cough. Also would explain her diarrhea. Radiography Chest X-Ray - ED: 1 View, Read by ED Physician, Unchanged, Heart, Bony Structures, No Acute Disease and Chronic Changes Diagnostic Testing: Clinical Impression(s) from Imaging Studies Chest X-Ray 02/18/21 18:28 IMPRESSION: Stable, nonacute portable x-ray examination of the chest. Electronically Signed: Hemant Jean-Baptiste MD ([place]) at 18:49 EDT , Service support , Discharge Plan Triage Chief Complaint: Cough ED Provider: Jv Cuadra Dx/Rx/DC Orders Clinical Impression: Diarrhea due to COVID-19, COPD with acute exacerbation Instructions: Coronavirus Disease 2019 (COVID-19): Caring for Yourself or Others Prescriptions: No Action albuterol sulfate 1 INHALER inhaler 2 puff inhalation Q6H PRN PRN (Reason: Shortness Of Breath) RF: 0 calcium carbonate-vitamin D3 1 EACH tablet 1 ea PO DAILY RF: 0 metoprolol succinate 25 MG tablet extended release 24 hr 25 mg PO DAILY RF: 0 divalproex 250 MG tablet 250 mg PO BIDCM RF: 0 topiramate 200 MG tablet 200 mg PO BID RF: 0 pantoprazole 40 MG tablet 40 mg PO BID RF: 0 lurasidone 40 MG tablet 1 tab PO DAILY RF: 0 duloxetine 30 MG capsule,delayed release(DR/EC) 30 mg PO DAILY RF: 0 metformin 500 mg tablet 500 mg PO DAILY RF: 0 ondansetron 4 mg tablet,disintegrating 4 mg PO Q8H PRN (Reason: nausea and vomiting) Qty: 10 RF: 0 Metamucil Fiber Singles 3.4 gram Powder In Packet 1 packet PO DAILY PRN PRN (Reason: Constipation) Qty: 0 RF: 0 hydroxyzine pamoate [Vistaril] 25 mg capsule 25 mg PO TID PRN (Reason: itching) Qty: 14 RF: 0 mirtazapine 30 mg Tablet,Disintegrating 30 mg PO QHS RF: 0 prazosin 1 mg Capsule 5 mg PO QHS RF: 0 alendronate [Fosamax] 70 mg Tablet 70 mg PO QWEEK RF: 0 pravastatin 80 mg Tablet 80 mg PO QHS RF: 0 furosemide [Lasix] 20 mg Tablet 20 mg PO DAILY RF: 0 Referrals: REY SHEA [Other] - 10-14 Days if not better Activity Restrictions/Additional Instructions: 1. You need to stop smoking immediately 2. Your symptoms are due to the COVID-19 virus infection Disposition Disposition: Home, Self Care
[2021-02-18 20:05] VITALS: O2SAT 94
--- NOTE | 2021-02-18 20:21 | ED.RN ---
pt refused to change into a gown, refused neurosurgery spine physician, and refused iv. pt agreeable to blood draw and covid testing. covid test was obtained. pt states you only get one poke to get my blood, if you can't get it than i do not want any more pokes. this nurse attempt blood draw and was unsuccessful. dr. ramirez made aware.
--- NOTE | 2021-02-18 20:24 | ED.RN ---
pt stated to this nurse i hope he gives me something to sleep, because this cough is bad and i can't sleep.
[2021-02-18 21:08] VITALS: RESP 18; O2SAT 94
== END 2021-02-18 21:44 | disposition home or self-care (01) ==
PROVIDERS: Emergency Provider Emergency Medicine
DX: U07.1 COVID-19 (principal); R19.7 Diarrhea, unspecified; J44.1 Chronic obstructive pulmonary disease with (acute) exacerbation; I25.10 Atherosclerotic heart disease of native coronary artery without angina pectoris; E66.9 Obesity, unspecified; F17.210 Nicotine dependence, cigarettes, uncomplicated; K21.9 Gastro-esophageal reflux disease without esophagitis; I10 Essential (primary) hypertension; Z79.899 Other long term (current) drug therapy
CPT/HCPCS: 71045; 87426; 94760; 99284; A4216

== ENCOUNTER 2021-02-20 00:03 | Emergency (ER) | payer MEDICARE, MEDICAID, SELFPAY ==
[2021-02-20 00:12] VITALS: BP 147/100; PULSE 103; RESP 23; TEMP 37.6; O2SAT 92; BMI 40.2
[2021-02-20 00:25] VITALS: BP 147/100; PULSE 103; RESP 20; TEMP 37.6; O2SAT 92
--- NOTE | 2021-02-20 00:47 | RAD_ITS ---
EXAM: XR Chest, 1 View CLINICAL INDICATION: 65 years old, Female; chest pain TECHNIQUE: Frontal view of the chest. This report was created using [employer] report generation technology. COMPARISON: Chest x-ray dated 02/18/2021. FINDINGS: Lungs and pleural spaces: Mild bibasilar infiltrates or atelectasis. No pneumothorax. No effusion. Heart: Unremarkable. Cardiac silhouette not enlarged. Mediastinum: Central airways and mediastinal contour are unremarkable. Bones/joints: Unremarkable. Soft tissues: Unremarkable. RAD/Chest 1 View (Portable) IMPRESSION: Mild bibasilar infiltrates or atelectasis. Electronically Signed: Charles Vieyra MD at 1:36 EDT Tel , Service support ,
--- NOTE | 2021-02-20 00:47 | EKG12_ITS ---
Test Reason : CP Blood Pressure : / mmHG Vent. Rate : 103 BPM Atrial Rate : 103 BPM P-R Int : 196 ms QRS Dur : 072 ms QT Int : 336 ms P-R-T Axes : 022 -16 018 degrees QTc Int : 440 ms Sinus tachycardia with Premature atrial complexes Inferior infarct , age undetermined, cannot be excluded Abnormal ECG Confirmed by CATHY ROJAS, LUIS M ([id number]), avid editor HERMAN DOWNS ([id number]) on 02/22/2021 8:59:14 AM Referred By: OSWALDO Confirmed By:LUIS M MORGAN MD
[2021-02-20] MEDS: Aspirin 81 MG TAB.CHEW 324 MG PO (00:56)
--- NOTE | 2021-02-20 01:13 | ED.RN ---
THIS RN ATTEMPTED TO PLACE AN IV ON PT. THE VEIN BLEW. PT REFUSES ANY OTHER BLOOD WORK OR IV START. NOTIFIED.
--- NOTE | 2021-02-20 01:14 | EX.ED.DYSGE1 ---
HPI History of Present Illness Chief Complaint: Chest Pain Informant: patient Onset/Context/Timing Onset: Yesterday Context: Gradual Onset Timing: Waxes and wanes Current Severity: Mild Maximum Severity: Moderate Narrative Narrative: Patient presents via EMS secondary to chest pain with radiation down her left arm. Patient states that she is been sick for the past week. She was in the ER multiple times and 2 days ago was diagnosed with Covid. She is been monitoring her heart rate and oxygen level. Last evening she developed chest pressure with radiation down her left arm. She came in via EMS but refused to allow them to get her vital signs or an EKG. [facility] Medical History Anxiety Asthma Chronic pain Coronary artery disease Depression Depression Former smoker GERD (gastroesophageal reflux disease) History of fracture of hand Hypertension Irregular heart beat Irregular heart beat Migraines On home oxygen therapy PTSD (post-traumatic stress disorder) Seizures Stroke/cerebrovascular accident Home Medications albuterol sulfate 2 puff INHALATION Q6H PRN PRN 02/20/18 [History Last Taken 06/21/19 18:00] calcium carbonate-vitamin D3 1 ea PO DAILY 06/13/19 [History Last Taken 06/19/19] metoprolol succinate 25 mg PO DAILY 07/08/19 [History Last Taken 07/21/19] divalproex 250 mg PO BIDCM 11/15/19 [History Last Taken Unknown] topiramate 200 mg PO BID 11/15/19 [History Last Taken Unknown] duloxetine 30 mg PO DAILY 05/27/20 [History Last Taken Unknown] lurasidone 1 tab PO DAILY 05/27/20 [History Last Taken Unknown] pantoprazole 40 mg PO BID 05/27/20 [History Last Taken Unknown] metformin 500 mg PO DAILY 09/02/20 [History Last Taken Unknown] ondansetron 4 mg PO Q8H PRN #10 tab 09/11/20 [Rx Last Taken Unknown] psyllium husk (aspartame) [Metamucil Fiber Singles] 1 packet PO DAILY PRN PRN #0 ea 09/19/20 [Rx Last Taken Unknown] hydroxyzine pamoate [Vistaril] 25 mg PO TID PRN #14 cap 12/05/20 [Rx Last Taken Unknown] alendronate [Fosamax] 70 mg PO QWEEK 10/23/21 [History Last Taken Unknown] furosemide [Lasix] 20 mg PO DAILY 02/18/21 [History Last Taken Unknown] mirtazapine 30 mg PO QHS 02/18/21 [History Last Taken Unknown] pravastatin 80 mg PO QHS 02/18/21 [History Last Taken Unknown] prazosin 5 mg PO QHS 02/18/21 [History Last Taken Unknown] Allergy/AdvReac Type Severity Reaction Status Date / Time acetaminophen [From Tylenol] AdvReac Upset Verified 02/14/21 19:29 Stomach amoxicillin [From Augmentin] AdvReac Hives Verified 02/14/21 19:29 clavulanic acid AdvReac Hives Verified 02/14/21 19:29 [From Augmentin] sulfamethoxazole AdvReac Vomiting Verified 02/14/21 19:29 [From Bactrim] sumatriptan [From Imitrex] AdvReac Vomiting Verified 02/14/21 19:29 sumatriptan succinate AdvReac Vomiting Verified 02/14/21 19:29 [From Imitrex] trimethoprim [From Bactrim] AdvReac Vomiting Verified 02/14/21 19:29 BEE STING Allergy Anaphylaxis Uncoded 02/14/21 19:29 ANTI PSYCHOTICS AdvReac Other Uncoded 02/14/21 19:29 PAPER TAPE AdvReac Rash Uncoded 02/14/21 19:29 Family History Mother Hypertension Father Hypertension Surgical History H/O hand surgery H/O knee surgery History of cholecystectomy History of left heart catheterization (06/23/19) Social History household members: none Smoking Status: Current some day smoker tobacco type: cigarettes alcohol intake: never substance use type: does not use ROS ROS ED Constitutional Constitutional ED: Reports fever(s); Denies chills Eyes Eyes: Denies change in vision ENT ENT ED: Denies sore throat Cardiovascular Cardiovascular: Reports chest pain Respiratory/Chest Respiratory/Chest: Reports cough and dyspnea Gastrointestinal Gastrointestinal: Reports abdominal pain and diarrhea; Denies nausea or vomiting Genitourinary Genitourinary ED: Denies dysuria Musculoskeletal Musculoskeletal: Reports myalgias; Denies back pain Integumentary Denies rash Allergic/Immunologic Allergic/Immunologic ED: Denies urticaria EXAM Physical Exam Const Vital Signs: 02/20/21 00:12 02/20/21 00:25 Temperature 99.7 F H 99.7 F H Temperature Source Oral Oral Pulse Rate 103 H 103 H Respiratory Rate 23 H 20 H Respiratory Effort Normal Non-Labored Respiratory Pattern Normal Blood Pressure 147/100 H 147/100 H Blood Pressure Mean 115 115 Pulse Ox 92 92 Oxygen Delivery Method Room Air Room Air Positive well nourished and well developed General Appearance ED: well developed HEENT Reports moist mucous membranes Eyes PERRL and EOMs intact bilaterally Neck supple Chest Wall Chest Narrative: Muscular tenderness with palpation of the chest wall. Resp normal respiratory effort and clear to auscultation bilaterally Cardio regular rate and regular rhythm GI normal to inspection, nondistended, normoactive bowel sounds and non-tender Palpation: soft Neuro oriented x3 Sensorium / Orientation: alert Psych mental status grossly normal Skin no rashes or lesions noted MDM MDM MDM Narrative Medical decision making narrative: Patient was given aspirin on arrival. EKG, chest x-ray, lab work ordered. Lab Data Attestation: I reviewed the patient's lab results. Labs: Laboratory Results - last 24 hr 02/20/21 02/20/21 02:30 02:30 WBC 4.5 RBC 3.85 L Hgb 11.8 L Hct 35.5 L MCV 92.2 MCH 30.6 MCHC 33.2 RDW Std Deviation 46.5 H RDW Coeff of Lenora 13.7 Plt Count 179 MPV 10.5 Immature Gran % (Auto) 0.000 Neut % (Auto) 47.5 Lymph % (Auto) 31.3 Vilas % (Auto) 18.3 H Eos % (Auto) 2.2 Baso % (Auto) 0.7 Absolute Neuts (auto) 2.1 Absolute Lymphs (auto) 1.40 Nucleated RBC % 0 Sodium 138 Potassium 3.0 L Chloride 104 Carbon Dioxide 27.0 Anion Gap 7 BUN 14 Creatinine 0.87 Estim Creat Clear Calc 51.67 Est GFR (MDRD) Af Amer 84 Est GFR (MDRD) Non-Af 70 BUN/Creatinine Ratio 16.1 Glucose 173 H Calcium 8.4 L Troponin I High Sens 6 Radiography Chest X-Ray - ED: 1 View, Read by ED Physician and Chronic Changes Diagnostic Testing: Clinical Impression(s) from Imaging Studies Chest X-Ray 02/20/21 00:47 IMPRESSION: Mild bibasilar infiltrates or atelectasis. Electronically Signed: Charles Vieyra MD at 1:36 EDT Tel , Service support , EKG Initial EKG: Attestation: I personally reviewed and interpreted this EKG as follows: Interpretation: Sinus Tachycardia (Sinus tach at 103. No acute ST change.) Treatment and Re-Evaluation Comments:: Patient is a difficult IV stick and given significant delay in getting her blood. She eventually let us try with a butterfly needle just to draw labs. Blood work is remarkable only for potassium low at 3.0 and glucose of 173. Troponin is normal at 6. Patient did use her inhaler while here under our instruction. At this time she has home oxygen that she can use as needed. She has a pulse ox meter to continue monitoring her symptoms. I do not feel that Decadron will be of great benefit to her in light of her diabetes and already elevated blood sugar. I did offer to write something nonnarcotic for pain but she declined stating that they all upset her stomach. Discharge Plan Triage Chief Complaint: Chest Pain ED Provider: Alisa Caicedo Dx/Rx/DC Orders Clinical Impression: Chest pain, COVID-19 Instructions: ED Strain Chest Wall Prescriptions: No Action albuterol sulfate 1 INHALER inhaler 2 puff inhalation Q6H PRN PRN (Reason: Shortness Of Breath) RF: 0 calcium carbonate-vitamin D3 1 EACH tablet 1 ea PO DAILY RF: 0 metoprolol succinate 25 MG tablet extended release 24 hr 25 mg PO DAILY RF: 0 divalproex 250 MG tablet 250 mg PO BIDCM RF: 0 topiramate 200 MG tablet 200 mg PO BID RF: 0 pantoprazole 40 MG tablet 40 mg PO BID RF: 0 lurasidone 40 MG tablet 1 tab PO DAILY RF: 0 duloxetine 30 MG capsule,delayed release(DR/EC) 30 mg PO DAILY RF: 0 metformin 500 mg tablet 500 mg PO DAILY RF: 0 ondansetron 4 mg tablet,disintegrating 4 mg PO Q8H PRN (Reason: nausea and vomiting) Qty: 10 RF: 0 Metamucil Fiber Singles 3.4 gram Powder In Packet 1 packet PO DAILY PRN PRN (Reason: Constipation) Qty: 0 RF: 0 hydroxyzine pamoate [Vistaril] 25 mg capsule 25 mg PO TID PRN (Reason: itching) Qty: 14 RF: 0 mirtazapine 30 mg Tablet,Disintegrating 30 mg PO QHS RF: 0 prazosin 1 mg Capsule 5 mg PO QHS RF: 0 alendronate [Fosamax] 70 mg Tablet 70 mg PO QWEEK RF: 0 pravastatin 80 mg Tablet 80 mg PO QHS RF: 0 furosemide [Lasix] 20 mg Tablet 20 mg PO DAILY RF: 0 Referrals: REY SHEA [Other] Disposition Disposition: Home, Self Care
[2021-02-20 02:41] LABS: Absolute Neutrophil Count 2.1 X10^3/uL (2.0-7.7); Basophil# 0.03 X10^3/uL; Basophil% 0.7 % (0-1); Eosinophils% 2.2 % (0-5); Hematocrit 35.5 % (37-47); Hemoglobin 11.8 g/dL (12.0-15.0); Lymphocyte % 31.3 % (19-41); Mean Corp Hgb Conc 33.2 g/dL (32-36); Mean Corpuscular Hgb 30.6 pg (27.0-32.0); Mean Corpuscular Volume 92.2 fL (81-99); Mean Platelet Vol. 10.5 fl (6.2-12.0); Monocyte# 0.82 X10^3/uL; Monocyte% 18.3 % (0-10); NRBC Flagged by Analyzer 0 % (0-5); Neutrophil # 2.13 X10^3/uL (2.7-7.7); Neutrophil % 47.5 % (47-70); Platelet Count 179 K/mm3 (150-450); RBC Distribution Width CV 13.7 % (11.6-14.6); RBC Distribution Width SD 46.5 fl (35.1-43.9); Red Blood Count 3.85 M/mm3 (4.2-5.4); White Blood Count 4.5 K/mm3 (4.4-11.0)
[2021-02-20 03:04] LABS: Anion Gap 7 (5-15); BUN 14 mg/dL (7-18); BUN/Creat Ratio 16.1 RATIO (10-20); Calcium,Total 8.4 mg/dL (8.5-10.1); Chloride 104 mmol/L (98-107); Creatinine, Serum 0.87 mg/dL (0.55-1.02); EST Glomerular Filtration Rate 70 mL/min (>60); Est Glom Filt Rate - Afr Amer 84 mL/min (>60); Estimated Creatinine Clearance 51.67 ml/min; Glucose 173 mg/dL (74-106); Sodium Level 138 mmol/L (136-145); Troponin-I HS 6 pg/mL (3.0-54.0)
--- NOTE | 2021-02-20 05:22 | ED.RN ---
PT DEMANDS THAT THE HOSPITAL PRINT OUT HER LABWORK. SHE WAS INFORMED THE APPROPRIATE WAY TO GET HER LAB WORK IS TO GO THROUGH [facility]ORDS. PT BECAME IRATE AND STATES SHE WANTS THEM NOW. THIS RN LEAVES THE ROOM TO TALK TO DOCTOR ABOUT RELEASING LABWORK. PT YELLS DAVID BYNUM. THIS RN CONSULTS WITH ER PHYSICIAN AND IT IS DECIDED UPON TO HAVE PATIENT SIGN A RELEASE OF MEDICAL RECORDS AND GIVE HER A COPY OF HER RESULTS FROM THIS VISIT. RELEASE PAPERWORK SIGNED AND RESULTS WERE GIVEN TO PATIENT.
== END 2021-02-20 05:54 | disposition home or self-care (01) ==
PROVIDERS: Emergency Provider Emergency Medicine
DX: U07.1 COVID-19 (principal); R07.89 Other chest pain; I25.10 Atherosclerotic heart disease of native coronary artery without angina pectoris
CPT/HCPCS: 36415; 71045; 80048; 84484; 85025; 93005; 99285

== ENCOUNTER 2021-02-22 02:03 | Emergency (ER) | payer MEDICARE, MEDICAID, SELFPAY ==
[2021-02-22 02:05] VITALS: BP 110/73; PULSE 95; RESP 18; TEMP 37.3; O2SAT 96; BMI 43.0
[2021-02-22 02:17] VITALS: BP 110/73; PULSE 95; RESP 18; TEMP 37.3; O2SAT 96
[2021-02-22 02:35] VITALS: PULSE 93; RESP 20
--- NOTE | 2021-02-22 02:37 | RAD_ITS ---
STUDY: X-RAY CHEST REASON FOR EXAM: Female, 65 years old. cough, covid TECHNIQUE: Single AP portable view of the chest. COMPARISON: None. FINDINGS: Ill-defined subpleural groundglass opacities are seen more prominent in the lung bases , may represent atypical pneumonia or viral pneumonia (COVID-19 pneumonia). There is no demonstrated pleural abnormality. Normal size heart. Normal mediastinum and ita. Normal visualized pulmonary arteries. Normal visualized aortic arch and descending thoracic aorta. Normal visualized thoracic spine. Normal visualized ribs, clavicles, and shoulders. There is no demonstrated abnormality of the visualized soft tissue structures of the upper abdomen. RAD/Chest 1 View (Portable) IMPRESSION: Ill-defined subpleural groundglass opacities are seen more prominent in the lung bases , may represent atypical pneumonia or viral pneumonia (COVID-19 pneumonia). Electronically Signed: Benedicto Alvarez MD at 3:27 EDT Tel , Service support ,
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
[2021-02-22] MEDS: Ipratropium/Albuterol Sulfate 3 ML AMPUL.NEB INHALATION (02:45)
[2021-02-22 03:12] VITALS: O2SAT 97
[2021-02-22 05:09] VITALS: BP 110/70; PULSE 82; RESP 20; O2SAT 97
== END 2021-02-22 05:10 | disposition home or self-care (01) ==
PROVIDERS: Emergency Provider Emergency Medicine
DX: U07.1 COVID-19 (principal); I25.10 Atherosclerotic heart disease of native coronary artery without angina pectoris; F17.210 Nicotine dependence, cigarettes, uncomplicated
CPT/HCPCS: 71045; 94640; 99284

== ENCOUNTER 2021-02-27 01:27 | Emergency (ER) | payer MEDICARE, MEDICAID, SELFPAY ==
[2021-02-27 01:28] VITALS: BP 119/66; PULSE 74; RESP 18; TEMP 36.9; O2SAT 97; BMI 40.6
--- NOTE | 2021-02-27 01:54 | EDS_ITS ---
HPI History of Present Illness Chief Complaint: Headache Informant: patient Onset/Context/Timing Onset: Today Context: Gradual Timing: Continuous Quality -Headache: Positive for Sharp Location: Bitemporal Worsened by: Lites Relieved by: Nothing Associated Symptoms/Injury Associated Symptoms: Positive for Nausea, Sinus Pressure, Blurred Vision and Photophobia; Negative for Fever, Vomiting, Sore Throat, Numbness, Tingling, Preceding Aura, Visual Changes and Visual Loss Injury - AUGUSTIN: Negative for Direct Trauma Narrative Narrative: Patient presents with a headache. Patient states it began earlier today. Patient states it is gradually getting worse. Patient states the pain has been constant throughout the day. Patient states the pain is sharp. Patient states it is localized to the temporal areas bilaterally. Patient states it is worse with lights. Patient admits to nausea but denies any vo miting. Patient does admit to some sinus pressure. Patient also admits to some blurred vision but denies any double vision. Patient denies any fevers or chills. Patient denies any paresthesias. PFSH PFS Medical History Anxiety Asthma Chronic pain Coronary artery disease Depression Depression Former smoker GERD (gastroesophageal reflux disease) History of fracture of hand Hypertension Irregular heart beat Irregular heart beat Migraines On home oxygen therapy PTSD (post-traumatic stress disorder) Seizures Stroke/cerebrovascular accident Home Medications albuterol sulfate 2 puff INHALATION Q6H PRN PRN 02/20/18 [History Last Taken 06/21/19 18:00] calcium carbonate-vitamin D3 1 ea PO DAILY 06/13/19 [History Last Taken 06/19/19] metoprolol succinate 25 mg PO DAILY 07/08/19 [History Last Taken 07/21/19] divalproex 250 mg PO BIDCM 11/15/19 [History Last Taken Unknown] topiramate 200 mg PO BID 11/15/19 [History Last Taken Unknown] duloxetine 30 mg PO DAILY 05/27/20 [History Last Taken Unknown] lurasidone 1 tab PO DAILY 05/27/20 [History Last Taken Unknown] pantoprazole 40 mg PO BID 05/27/20 [History Last Taken Unknown] metformin 500 mg PO DAILY 09/02/20 [History Last Taken Unknown] ondansetron 4 mg PO Q8H PRN #10 tab 09/11/20 [Rx Last Taken Unknown] psyllium husk (aspartame) [Metamucil Fiber Singles] 1 packet PO DAILY PRN PRN #0 ea 09/19/20 [Rx Last Taken Unknown] hydroxyzine pamoate [Vistaril] 25 mg PO TID PRN #14 cap 12/05/20 [Rx Last Taken Unknown] alendronate [Fosamax] 70 mg PO QWEEK 02/18/21 [History Last Taken Unknown] furosemide [Lasix] 20 mg PO DAILY 02/18/21 [History Last Taken Unknown] mirtazapine 30 mg PO QHS 02/18/21 [History Last Taken Unknown] pravastatin 80 mg PO QHS 02/18/21 [History Last Taken Unknown] prazosin 5 mg PO QHS 02/18/21 [History Last Taken Unknown] benzonatate [Tessalon Perles] 100 mg PO TID PRN #14 cap 02/22/21 [Rx Last Taken Unknown] Allergy/AdvReac Type Severity Reaction Status Date / Time acetaminophen [From Tylenol] AdvReac Upset Verified 02/14/21 19:29 Stomach amoxicillin [From Augmentin] AdvReac Hives Verified 02/14/21 19:29 clavulanic acid AdvReac Hives Verified 02/14/21 19:29 [From Augmentin] sulfamethoxazole AdvReac Vomiting Verified 02/14/21 19:29 [From Bactrim] sumatriptan [From Imitrex] AdvReac Vomiting Verified 02/14/21 19:29 sumatriptan succinate AdvReac Vomiting Verified 02/14/21 19:29 [From Imitrex] trimethoprim [From Bactrim] AdvReac Vomiting Verified 02/14/21 19:29 BEE STING Allergy Anaphylaxis Uncoded 02/14/21 19:29 ANTI PSYCHOTICS AdvReac Other Uncoded 02/14/21 19:29 PAPER TAPE AdvReac Rash Uncoded 02/14/21 19:29 Family History Mother Hypertension Father Hypertension Surgical History H/O hand surgery H/O knee surgery History of cholecystectomy History of left heart catheterization (06/23/19) Social History household members: none Smoking Status: Current some day smoker tobacco type: cigarettes alcohol intake: never substance use type: does not use ROS ROS ED Constitutional Constitutional ED: Denies chills or fever(s) Eyes Eyes: Reports blurry vision; Denies diplopia ENT ENT ED: Denies rhinorrhea or sore throat Cardiovascular Cardiovascular: Reports chest pain; Denies palpitations Respiratory/Chest Respiratory/Chest: Reports cough and dyspnea Gastrointestinal Gastrointestinal: Reports nausea; Denies vomiting Genitourinary Genitourinary ED: Denies dysuria or hematuria Musculoskeletal Musculoskeletal: Reports back pain and neck pain Integumentary Denies abscess or rash Neurologic Neurologic: Reports headache(s); Denies paresthesias Allergic/Immunologic Allergic/Immunologic ED: Denies mouth swelling or urticaria EXAM Physical Exam Const Vital Signs: 02/27/21 01:28 Temperature 98.4 F Temperature Source Temporal Pulse Rate 74 Respiratory Rate 18 Blood Pressure 119/66 Blood Pressure Mean 83 Pulse Ox 97 Oxygen Delivery Method Room Air Positive well nourished, well developed and obese General Appearance ED: well developed Nutritional Appearance: obese HEENT Reports moist mucous membranes Eyes PERRL and EOMs intact bilaterally Neck supple, no meningeal signs and no JVD Resp normal respiratory effort and clear to auscultation bilaterally Cardio regular rate and regular rhythm GI non-tender and non-distended Palpation: soft Neuro oriented x3, CN's II-XII intact bilaterally and no sensory deficits noted Sensorium / Orientation: awake and alert Motor Exam: strength 5/5 throughout Psych mental status grossly normal Skin Rashes: no rashes MDM MDM MDM Narrative Medical decision making narrative: Patient is given injection of Toradol here. Patient feels better on reevaluation. Patient was instructed to rest in a dark quiet room. Patient was instructed to follow-up with her primary care physician in 3 to 5 days. Patient understood and was agreeable with the plan. All questions were answered. Discharge Plan Triage Chief Complaint: Headache ED Provider: Jorje Westbrook Dx/Rx/DC Orders Clinical Impression: Headache Instructions: ED Headache Unspecified Prescriptions: No Action albuterol sulfate 1 INHALER inhaler 2 puff inhalation Q6H PRN PRN (Reason: Shortness Of Breath) RF: 0 calcium carbonate-vitamin D3 1 EACH tablet 1 ea PO DAILY RF: 0 metoprolol succinate 25 MG tablet extended release 24 hr 25 mg PO DAILY RF: 0 divalproex 250 MG tablet 250 mg PO BIDCM RF: 0 topiramate 200 MG tablet 200 mg PO BID RF: 0 pantoprazole 40 MG tablet 40 mg PO BID RF: 0 lurasidone 40 MG tablet 1 tab PO DAILY RF: 0 duloxetine 30 MG capsule,delayed release(DR/EC) 30 mg PO DAILY RF: 0 metformin 500 mg tablet 500 mg PO DAILY RF: 0 ondansetron 4 mg tablet,disintegrating 4 mg PO Q8H PRN (Reason: nausea and vomiting) Qty: 10 RF: 0 Metamucil Fiber Singles 3.4 gram Powder In Packet 1 packet PO DAILY PRN PRN (Reason: Constipation) Qty: 0 RF: 0 hydroxyzine pamoate [Vistaril] 25 mg capsule 25 mg PO TID PRN (Reason: itching) Qty: 14 RF: 0 mirtazapine 30 mg Tablet,Disintegrating 30 mg PO QHS RF: 0 prazosin 1 mg Capsule 5 mg PO QHS RF: 0 alendronate [Fosamax] 70 mg Tablet 70 mg PO QWEEK RF: 0 pravastatin 80 mg Tablet 80 mg PO QHS RF: 0 furosemide [Lasix] 20 mg Tablet 20 mg PO DAILY RF: 0 benzonatate [Tessalon Perles] 100 mg capsule 100 mg PO TID PRN (Reason: cough) Qty: 14 RF: 0 Referrals: REY SHEA [Other] - 3-5 Days Disposition Disposition: Home, Self Care
[2021-02-27] MEDS: Ketorolac 30 MG/ML Syringe IM (02:13)
--- NOTE | 2021-02-27 02:38 | ED.RN ---
WARM BLANKET GIVEN, LIGHTS OUT PER PT REQUEST AND NO DISTRESS NOTED
[2021-02-27 03:19] VITALS: BP 129/82; PULSE 67; RESP 16; O2SAT 95
== END 2021-02-27 03:58 | disposition home or self-care (01) ==
PROVIDERS: Emergency Provider Emergency Medicine
DX: G43.909 Migraine, unspecified, not intractable, without status migrainosus (principal); F32.9 Major depressive disorder, single episode, unspecified; I25.10 Atherosclerotic heart disease of native coronary artery without angina pectoris; I10 Essential (primary) hypertension; K21.9 Gastro-esophageal reflux disease without esophagitis; J45.909 Unspecified asthma, uncomplicated; Z79.84 Long term (current) use of oral hypoglycemic drugs; Z79.899 Other long term (current) drug therapy
CPT/HCPCS: 96372; 99284

== ENCOUNTER 2021-03-02 23:17 | Emergency (ER) | payer MEDICARE, MEDICAID, SELFPAY ==
[2021-03-02 23:21] VITALS: BP 137/95; PULSE 93; RESP 22; TEMP 37.1; O2SAT 97; BMI 42.0
--- NOTE | 2021-03-02 23:25 | EX.ED.DYSGE1 ---
HPI History of Present Illness Chief Complaint: Nausea/Vomiting Informant: patient Onset/Context/Timing Onset: Hours (2) Context: Gradual Onset Timing: Continuous Quality: Sharp, stabbing, throbbing Location: Abdomen, head Worsened by: Light Relieved by: Nothing Narrative Narrative: Patient presents with headache, nausea, vomiting, and burning sensation in her hands. Patient states this is gradually been getting worse over the last 2 hours. Patient states her pain is sharp, stabbing, and throbbing. Patient states it is diffuse around her head as well as diffuse across her abdomen. Patient states her headache is worse with light. Patient states nothing makes it better. Patient denies any hematemesis or coffee-ground emesis. Patient denies any diarrhea, melena, or hematochezia. Patient does admit to some blurred vision and neck pain. [facility] Medical History Anxiety Asthma Chronic pain Coronary artery disease Depression Depression Former smoker GERD (gastroesophageal reflux disease) History of fracture of hand Hypertension Irregular heart beat Irregular heart beat Migraines On home oxygen therapy PTSD (post-traumatic stress disorder) Seizures Stroke/cerebrovascular accident Home Medications albuterol sulfate 2 puff INHALATION Q6H PRN PRN 02/20/18 [History Last Taken 06/21/19 18:00] calcium carbonate-vitamin D3 1 ea PO DAILY 06/13/19 [History Last Taken 06/19/19] metoprolol succinate 25 mg PO DAILY 07/08/19 [History Last Taken 07/21/19] divalproex 250 mg PO BIDCM 11/15/19 [History Last Taken Unknown] topiramate 200 mg PO BID 11/15/19 [History Last Taken Unknown] duloxetine 30 mg PO DAILY 05/27/20 [History Last Taken Unknown] lurasidone 1 tab PO DAILY 05/27/20 [History Last Taken Unknown] pantoprazole 40 mg PO BID 05/27/20 [History Last Taken Unknown] metformin 500 mg PO DAILY 09/02/20 [History Last Taken Unknown] ondansetron 4 mg PO Q8H PRN #10 tab 09/11/20 [Rx Last Taken Unknown] psyllium husk (aspartame) [Metamucil Fiber Singles] 1 packet PO DAILY PRN PRN #0 ea 09/19/20 [Rx Last Taken Unknown] hydroxyzine pamoate [Vistaril] 25 mg PO TID PRN #14 cap 12/05/20 [Rx Last Taken Unknown] alendronate [Fosamax] 70 mg PO QWEEK 02/18/21 [History Last Taken Unknown] furosemide [Lasix] 20 mg PO DAILY 02/18/21 [History Last Taken Unknown] mirtazapine 30 mg PO QHS 02/18/21 [History Last Taken Unknown] pravastatin 80 mg PO QHS 02/18/21 [History Last Taken Unknown] prazosin 5 mg PO QHS 02/18/21 [History Last Taken Unknown] benzonatate [Tessalon Perles] 100 mg PO TID PRN #14 cap 02/22/21 [Rx Last Taken Unknown] Allergy/AdvReac Type Severity Reaction Status Date / Time acetaminophen [From Tylenol] AdvReac Upset Verified 03/02/21 23:20 Stomach amoxicillin [From Augmentin] AdvReac Hives Verified 03/02/21 23:20 clavulanic acid AdvReac Hives Verified 03/02/21 23:20 [From Augmentin] sulfamethoxazole AdvReac Vomiting Verified 03/02/21 23:20 [From Bactrim] sumatriptan [From Imitrex] AdvReac Vomiting Verified 03/02/21 23:20 sumatriptan succinate AdvReac Vomiting Verified 03/02/21 23:20 [From Imitrex] trimethoprim [From Bactrim] AdvReac Vomiting Verified 03/02/21 23:20 BEE STING Allergy Anaphylaxis Uncoded 03/02/21 23:20 ANTI PSYCHOTICS AdvReac Other Uncoded 03/02/21 23:20 PAPER TAPE AdvReac Rash Uncoded 03/02/21 23:20 Family History Mother Hypertension Father Hypertension Surgical History H/O hand surgery H/O knee surgery History of cholecystectomy History of left heart catheterization (06/23/19) Social History household members: none Smoking Status: Current some day smoker tobacco type: cigarettes alcohol intake: never substance use type: does not use ROS ROS ED Constitutional Constitutional ED: Denies chills or fever(s) Eyes Eyes: Reports blurry vision; Denies diplopia ENT ENT ED: Denies rhinorrhea or sore throat Cardiovascular Cardiovascular: Denies chest pain or palpitations Respiratory/Chest Respiratory/Chest: Reports cough and dyspnea Gastrointestinal Gastrointestinal: Reports abdominal pain, nausea and vomiting; Denies diarrhea or melena Genitourinary Genitourinary ED: Denies dysuria or hematuria Musculoskeletal Musculoskeletal: Reports neck pain; Denies back pain Integumentary Denies abscess or rash Neurologic Neurologic: Reports headache(s); Denies weakness Allergic/Immunologic Allergic/Immunologic ED: Denies mouth swelling or urticaria EXAM Physical Exam Const Vital Signs: 03/02/21 23:21 Temperature 98.7 F Temperature Source Oral Pulse Rate 93 Respiratory Rate 22 H Blood Pressure 137/95 H Blood Pressure Mean 109 Pulse Ox 97 Oxygen Delivery Method Room Air Positive well nourished and well developed General Appearance ED: well developed HEENT Reports moist mucous membranes Neck supple and no JVD Resp normal respiratory effort and clear to auscultation bilaterally Cardio regular rate, regular rhythm and no murmurs GI normal to inspection, nondistended, normoactive bowel sounds Palpation: soft and tender epigastric, LLQ, RLQ, LUQ, RUQ, periumbilical and suprapubic; Negative for guarding or rebound tenderness present Extremity normal to inspection General Extremety ED: Negative for edema or tenderness General Extremity: Negative for edema Neuro oriented x3, CN's II-XII intact bilaterally and no sensory deficits noted Sensorium / Orientation: alert Motor Exam: strength 5/5 throughout Psych mental status grossly normal Skin no rashes or lesions noted MDM MDM MDM Narrative Medical decision making narrative: Patient was given IV fluids, Compazine, Benadryl, and Toradol. Patient is feeling better on reevaluation. Patient wants to go home. Patient was instructed to rest in a dark quiet room. Patient was instructed to follow-up with her primary care physician in 3 to 5 days. Patient understood and was agreeable with the plan. All questions were answered. Discharge Plan Triage Chief Complaint: Nausea/Vomiting ED Provider: Jorje Westbrook Dx/Rx/DC Orders Clinical Impression: Headache, Vomiting Instructions: ED, Migraine (Classical), ED Vomiting (Adult) Prescriptions: No Action albuterol sulfate 1 INHALER inhaler 2 puff inhalation Q6H PRN PRN (Reason: Shortness Of Breath) RF: 0 calcium carbonate-vitamin D3 1 EACH tablet 1 ea PO DAILY RF: 0 metoprolol succinate 25 MG tablet extended release 24 hr 25 mg PO DAILY RF: 0 divalproex 250 MG tablet 250 mg PO BIDCM RF: 0 topiramate 200 MG tablet 200 mg PO BID RF: 0 pantoprazole 40 MG tablet 40 mg PO BID RF: 0 lurasidone 40 MG tablet 1 tab PO DAILY RF: 0 duloxetine 30 MG capsule,delayed release(DR/EC) 30 mg PO DAILY RF: 0 metformin 500 mg tablet 500 mg PO DAILY RF: 0 ondansetron 4 mg tablet,disintegrating 4 mg PO Q8H PRN (Reason: nausea and vomiting) Qty: 10 RF: 0 Metamucil Fiber Singles 3.4 gram Powder In Packet 1 packet PO DAILY PRN PRN (Reason: Constipation) Qty: 0 RF: 0 hydroxyzine pamoate [Vistaril] 25 mg capsule 25 mg PO TID PRN (Reason: itching) Qty: 14 RF: 0 mirtazapine 30 mg Tablet,Disintegrating 30 mg PO QHS RF: 0 prazosin 1 mg Capsule 5 mg PO QHS RF: 0 alendronate [Fosamax] 70 mg Tablet 70 mg PO QWEEK RF: 0 pravastatin 80 mg Tablet 80 mg PO QHS RF: 0 furosemide [Lasix] 20 mg Tablet 20 mg PO DAILY RF: 0 benzonatate [Tessalon Perles] 100 mg capsule 100 mg PO TID PRN (Reason: cough) Qty: 14 RF: 0 Primary Care Provider: Care Physician,No Primary Referrals: Care Physician,No Primary [Primary Care Provider] - 3-5 Days Disposition Disposition: Home, Self Care
[2021-03-03] MEDS: proCHLORPERazine 10 MG/2 ML Vial IV
[2021-03-03] MEDS: 0.9% Normal Saline 1,000 ML 999 ML IV (00:01)
[2021-03-03] MEDS: Ketorolac 15 MG/ML Vial IV (00:02)
[2021-03-03] MEDS: DiphenhydrAMINE 50 MG/ML Syringe 25 MG IV (00:03)
== END 2021-03-03 01:12 | disposition home or self-care (01) ==
PROVIDERS: Emergency Provider Emergency Medicine
DX: R51.9 Headache, unspecified (principal); R11.2 Nausea with vomiting, unspecified; I25.10 Atherosclerotic heart disease of native coronary artery without angina pectoris; F17.210 Nicotine dependence, cigarettes, uncomplicated; J45.909 Unspecified asthma, uncomplicated; K21.9 Gastro-esophageal reflux disease without esophagitis; I10 Essential (primary) hypertension; F32.9 Major depressive disorder, single episode, unspecified; Z79.84 Long term (current) use of oral hypoglycemic drugs; Z79.899 Other long term (current) drug therapy
CPT/HCPCS: 96374; 96375; 99285; J7030; A4216

== ENCOUNTER 2021-03-24 23:45 | Emergency (ER) | payer MEDICARE, MEDICAID, SELFPAY ==
[2021-03-24 23:45] VITALS: BP 116/66; PULSE 84; RESP 17; TEMP 36.8; O2SAT 95; BMI 46.4
--- NOTE | 2021-03-24 23:58 | EDS_ITS ---
HPI History of Present Illness Chief Complaint: General Illness Informant: patient Onset/Context/Timing Onset: Days Current Severity: Mild Maximum Severity: Moderate Narrative Narrative: Patient presents secondary to feeling cold for the past 3 days. She states is been sleeping a lot and when she woke up had a craving to eat liver. She looked online and is concerned that she might be anemic so she came to the emergency room. She also complains of a migraine headache. She been taking aspirin without improvement. She states she usually does well with a shot of Toradol to help her headache. She denies any obvious source of blood loss. [facility] Medical History (Updated 03/25/21 @ 01:[address] Alisa Ciacedo MD) Anxiety Asthma Chronic pain Coronary artery disease Depression Former smoker GERD (gastroesophageal reflux disease) History of fracture of hand Hypertension Irregular heart beat Migraines On home oxygen therapy PTSD (post-traumatic stress disorder) Seizures Stroke/cerebrovascular accident Home Medications albuterol sulfate 2 puff INHALATION Q6H PRN PRN 02/20/18 [History Last Taken 06/21/19 18:00] calcium carbonate-vitamin D3 1 ea PO DAILY 06/13/19 [History Last Taken 06/19/19] metoprolol succinate 25 mg PO DAILY 07/08/19 [History Last Taken 07/21/19] divalproex 250 mg PO BIDCM 11/15/19 [History Last Taken Unknown] topiramate 200 mg PO BID 11/15/19 [History Last Taken Unknown] duloxetine 30 mg PO DAILY 05/27/20 [History Last Taken Unknown] lurasidone 1 tab PO DAILY 05/27/20 [History Last Taken Unknown] pantoprazole 40 mg PO BID 05/27/20 [History Last Taken Unknown] metformin 500 mg PO DAILY 09/02/20 [History Last Taken Unknown] ondansetron 4 mg PO Q8H PRN #10 tab 09/11/20 [Rx Last Taken Unknown] psyllium husk (aspartame) [Metamucil Fiber Singles] 1 packet PO DAILY PRN PRN #0 ea 09/19/20 [Rx Last Taken Unknown] hydroxyzine pamoate [Vistaril] 25 mg PO TID PRN #14 cap 12/05/20 [Rx Last Taken Unknown] alendronate [Fosamax] 70 mg PO QWEEK 02/18/21 [History Last Taken Unknown] furosemide [Lasix] 20 mg PO DAILY 02/18/21 [History Last Taken Unknown] mirtazapine 30 mg PO QHS 02/18/21 [History Last Taken Unknown] pravastatin 80 mg PO QHS 02/18/21 [History Last Taken Unknown] prazosin 5 mg PO QHS 02/18/21 [History Last Taken Unknown] benzonatate [Tessalon Perles] 100 mg PO TID PRN #14 cap 02/22/21 [Rx Last Taken Unknown] ciprofloxacin [Cipro] 500 mg PO BID 3 Days #30 ml 03/25/21 [Rx Last Taken U nknown] Allergy/AdvReac Type Severity Reaction Status Date / Time acetaminophen [From Tylenol] AdvReac Upset Verified 03/24/21 23:52 Stomach amoxicillin [From Augmentin] AdvReac Hives Verified 03/24/21 23:52 clavulanic acid AdvReac Hives Verified 03/24/21 23:52 [From Augmentin] ibuprofen [From Advil] AdvReac Nausea Verified 03/24/21 23:52 sulfamethoxazole AdvReac Vomiting Verified 03/24/21 23:52 [From Bactrim] sumatriptan [From Imitrex] AdvReac Vomiting Verified 03/24/21 23:52 sumatriptan succinate AdvReac Vomiting Verified 03/24/21 23:52 [From Imitrex] trimethoprim [From Bactrim] AdvReac Vomiting Verified 03/24/21 23:52 BEE STING Allergy Anaphylaxis Uncoded 03/24/21 23:52 ANTI PSYCHOTICS AdvReac Other Uncoded 03/24/21 23:52 PAPER TAPE AdvReac Rash Uncoded 03/24/21 23:52 Family History Mother Hypertension Father Hypertension Surgical History H/O hand surgery H/O knee surgery History of cholecystectomy History of left heart catheterization (06/23/19) Social History household members: none Smoking Status: Current some day smoker tobacco type: cigarettes alcohol intake: never substance use type: does not use ROS ROS ED Constitutional Constitutional ED: Denies chills or fever(s) Eyes Eyes: Denies change in vision ENT ENT ED: Denies sore throat Cardiovascular Cardiovascular: Denies chest pain Respiratory/Chest Respiratory/Chest: Denies cough or dyspnea Gastrointestinal Gastrointestinal: Denies abdominal pain, diarrhea, nausea or vomiting Genitourinary Genitourinary ED: Reports other Details: Haziness to urine ; Denies dysuria Musculoskeletal Musculoskeletal: Denies back pain Integumentary Denies rash Neurologic Neurologic: Reports headache(s); Denies weakness Allergic/Immunologic Allergic/Immunologic ED: Denies urticaria EXAM Physical Exam Const Vital Signs: 03/24/21 23:45 03/24/21 23:53 Temperature 98.2 F Temperature Source Temporal Pulse Rate 84 Respiratory Rate 17 Respiratory Effort Normal Blood Pressure 116/66 Blood Pressure Mean 82 Pulse Ox 95 Oxygen Delivery Method Room Air Positive well nourished and well developed General Appearance ED: well developed HEENT Reports moist mucous membranes Eyes PERRL and EOMs intact bilaterally Neck supple Chest Wall inspection of chest normal and palpation of chest normal Resp normal respiratory effort and clear to auscultation bilaterally Cardio regular rate and regular rhythm Rate: other Other Details: Strong distal pulses throughout GI non-tender Auscultation: hypoactive bowel sounds Palpation: soft Extremity normal to inspection Neuro oriented x3 Neuro Narrative: No focal neurologic deficits. Sensorium / Orientation: alert Psych mental status grossly normal Skin no rashes or lesions noted MDM MDM MDM Narrative Medical decision making narrative: CBC, chemistry studies, urinalysis obtained. Patient was given a dose of IV Toradol which is worked well for her migraines in the past. Lab Data Attestation: I reviewed the patient's lab results. Labs: Laboratory Results - last 24 hr 03/25/21 03/25/21 03/25/21 00:15 00:15 00:57 WBC 7.7 RBC 4.00 L Hgb 12.3 Hct 37.8 MCV 94.5 MCH 30.8 MCHC 32.5 RDW Std Deviation 53.7 H RDW Coeff of Lenora 15.2 H Plt Count 189 MPV 10.4 Immature Gran % (Auto) 0.400 Neut % (Auto) 44.5 L Lymph % (Auto) 36.1 [place] % (Auto) 11.2 H Eos % (Auto) 6.9 H Baso % (Auto) 0.9 Absolute Neuts (auto) 3.4 Absolute Lymphs (auto) 2.77 Nucleated RBC % 0 Sodium 143 Potassium 3.6 Chloride 107 Carbon Dioxide 31.0 Anion Gap 5 BUN 26 H Creatinine 0.76 Estim Creat Clear Calc 59.15 Est GFR (MDRD) Af Amer 98 Est GFR (MDRD) Non-Af 81 BUN/Creatinine Ratio 34.2 H Glucose 139 H Calcium 9.1 Urine Color Yellow Urine Clarity Sl. Cloudy Urine pH 6.0 Ur Specific [place] 1.025 Urine Protein Negative Urine Glucose (UA) Normal Urine Ketones Negative Urine Occult Blood 10 H Urine Nitrite Negative Urine Bilirubin Negative Urine Urobilinogen Normal Ur Leukocyte Esterase 500 H Urine RBC 0-5 SEEN Urine WBC 25-50 SEEN Ur Squamous Epith Cells 0-5 SEEN Urine Bacteria 1+ Urine Mucus 0 SEEN Treatment and Re-Evaluation Comments:: On repeat evaluation patient resting comfortably. Patient advised that she has no evidence of anemia on her blood work. Urinalysis does reveal infection. She does have allergies to Bactrim and Augmentin. We will try 3 days of Cipro. Discharge Plan Triage Chief Complaint: General Illness ED Provider: Alisa Caicedo Dx/Rx/DC Orders Clinical Impression: UTI (urinary tract infection) Instructions: ED CYSTITIS Female Adult Prescriptions: New ciprofloxacin [Cipro] 500 mg/5 mL suspension,microcapsule recon 500 mg PO BID 3 Days Qty: 30 RF: 0 No Action albuterol sulfate 1 INHALER inhaler 2 puff inhalation Q6H PRN PRN (Reason: Shortness Of Breath) RF: 0 calcium carbonate-vitamin D3 1 EACH tablet 1 ea PO DAILY RF: 0 metoprolol succinate 25 MG tablet extended release 24 hr 25 mg PO DAILY RF: 0 divalproex 250 MG tablet 250 mg PO BIDCM RF: 0 topiramate 200 MG tablet 200 mg PO BID RF: 0 pantoprazole 40 MG tablet 40 mg PO BID RF: 0 lurasidone 40 MG tablet 1 tab PO DAILY RF: 0 duloxetine 30 MG capsule,delayed release(DR/EC) 30 mg PO DAILY RF: 0 metformin 500 mg tablet 500 mg PO DAILY RF: 0 ondansetron 4 mg tablet,disintegrating 4 mg PO Q8H PRN (Reason: nausea and vomiting) Qty: 10 RF: 0 Metamucil Fiber Singles 3.4 gram Powder In Packet 1 packet PO DAILY PRN PRN (Reason: Constipation) Qty: 0 RF: 0 hydroxyzine pamoate [Vistaril] 25 mg capsule 25 mg PO TID PRN (Reason: itching) Qty: 14 RF: 0 mirtazapine 30 mg Tablet,Disintegrating 30 mg PO QHS RF: 0 prazosin 1 mg Capsule 5 mg PO QHS RF: 0 alendronate [Fosamax] 70 mg Tablet 70 mg PO QWEEK RF: 0 pravastatin 80 mg Tablet 80 mg PO QHS RF: 0 furosemide [Lasix] 20 mg Tablet 20 mg PO DAILY RF: 0 benzonatate [Tessalon Perles] 100 mg capsule 100 mg PO TID PRN (Reason: cough) Qty: 14 RF: 0 Primary Care Provider: Care Physician,No Primary Referrals: Care Physician,No Primary [Primary Care Provider] - Activity Restrictions/Additional Instructions: Follow-up with your doctor on Saturday as scheduled. Disposition Disposition: Home, Self Care
[2021-03-25 00:22] LABS: Absolute Lymphocyte Count 2.77 X10^3/uL (0.83-4.51); Absolute Neutrophil Count 3.4 X10^3/uL (2.0-7.7); Basophil# 0.07 X10^3/uL; Basophil% 0.9 % (0-1); Eosinophil# 0.53 X10^3/uL; Eosinophils% 6.9 % (0-5); Hematocrit 37.8 % (37-47); Hemoglobin 12.3 g/dL (12.0-15.0); Lymphocyte # 2.77 X10^3/ul (0.83-4.51); Lymphocyte % 36.1 % (19-41); Mean Corp Hgb Conc 32.5 g/dL (32-36); Mean Corpuscular Hgb 30.8 pg (27.0-32.0); Mean Corpuscular Volume 94.5 fL (81-99); Mean Platelet Vol. 10.4 fl (6.2-12.0); Monocyte# 0.86 X10^3/uL; Monocyte% 11.2 % (0-10); NRBC Flagged by Analyzer 0 % (0-5); Neutrophil # 3.42 X10^3/uL (2.7-7.7); Neutrophil % 44.5 % (47-70); Platelet Count 189 K/mm3 (150-450); RBC Distribution Width CV 15.2 % (11.6-14.6); RBC Distribution Width SD 53.7 fl (35.1-43.9); White Blood Count 7.7 K/mm3 (4.4-11.0)
[2021-03-25] MEDS: Ketorolac 30 MG/ML Syringe IV (00:32)
[2021-03-25 00:38] LABS: Anion Gap 5 (5-15); BUN 26 mg/dL (7-18); BUN/Creat Ratio 34.2 RATIO (10-20); Calcium,Total 9.1 mg/dL (8.5-10.1); Chloride 107 mmol/L (98-107); Creatinine, Serum 0.76 mg/dL (0.55-1.02); EST Glomerular Filtration Rate 81 mL/min (>60); Est Glom Filt Rate - Afr Amer 98 mL/min (>60); Estimated Creatinine Clearance 59.15 ml/min; Glucose 139 mg/dL (74-106); Potassium 3.6 mmol/L (3.5-5.1); Sodium Level 143 mmol/L (136-145)
[2021-03-25 01:01] LABS: Color, Urine Yellow (Yellow); Glucose, Dipstick Normal (Normal); Ketone-Dipstick Negative (Negative); Leukocyte Esterase-Dipstick 500 /ul (Negative); Nitrite-Dipstick Negative (Negative); Occult Blood-Urine 10 /ul (Negative); Protein-Dipstick Negative (Negative); Specific Gravity, Urine 1.025 (1.002-1.030); Urine Bilirubin Dipstick Negative (Negative); Urine Clarity Sl. Cloudy (Clear); Urine Urobilinogen Normal (Normal)
[2021-03-25 01:02] LABS: Mucous, Urine 0 SEEN /hpf (<or=2+)
[2021-03-25 01:15] LABS: Squamous Epithelial Cells - UA 0-5 SEEN /hpf (5-10)
[2021-03-25 01:16] LABS: Red Blood Cells-Urine 0-5 SEEN /hpf (0-5); White Blood Cells 25-50 SEEN /hpf (0-5)
[2021-03-25 01:17] LABS: Bacteria 1+ /hpf (None Seen)
[2021-03-25 01:48] VITALS: PULSE 88; RESP 16; O2SAT 94
== END 2021-03-25 01:51 | disposition home or self-care (01) ==
PROVIDERS: Emergency Provider Emergency Medicine
DX: N39.0 Urinary tract infection, site not specified (principal); J45.909 Unspecified asthma, uncomplicated; I25.10 Atherosclerotic heart disease of native coronary artery without angina pectoris; I10 Essential (primary) hypertension; K21.9 Gastro-esophageal reflux disease without esophagitis; G43.909 Migraine, unspecified, not intractable, without status migrainosus; Z79.84 Long term (current) use of oral hypoglycemic drugs; Z79.899 Other long term (current) drug therapy
CPT/HCPCS: 80048; 81001; 85025; 96374; 99285; A4216

== ENCOUNTER 2021-04-05 03:19 | Emergency (ER) | payer MEDICARE, MEDICAID, SELFPAY ==
[2021-04-05 03:21] VITALS: BP 118/76; PULSE 85; RESP 16; TEMP 36.4; O2SAT 98; BMI 38.7
--- NOTE | 2021-04-05 04:04 | EDS_ITS ---
HPI History of Present Illness Chief Complaint: Mental Health Narrative Narrative: Patient is a 65-year-old female with history of paranoid schizophrenia. She states she called 911 this evening because the radiation waves that are being being through her window are causing her to have difficulty sleeping as well as causing a rash to her arms. She denies any homicidal or suicidal ideation but states that with these persistent symptoms from the radiation waves she called 911 to bring her in for evaluation [facility] Medical History (Updated 04/05/21 @ 04:[address] Chris Valentine, DO) Anxiety Asthma Chronic pain Coronary artery disease Depression Former smoker GERD (gastroesophageal reflux disease) History of fracture of hand Hypertension Irregular heart beat Migraines On home oxygen therapy PTSD (post-traumatic stress disorder) Seizures Stroke/cerebrovascular accident Home Medications albuterol sulfate 2 puff INHALATION Q6H PRN PRN 02/20/18 [History Last Taken 06/21/19 18:00] calcium carbonate-vitamin D3 1 ea PO DAILY 06/13/19 [History Last Taken 06/19/19] metoprolol succinate 25 mg PO DAILY 07/08/19 [History Last Taken 07/21/19] divalproex 250 mg PO BIDCM 11/15/19 [History Last Taken Unknown] topiramate 200 mg PO BID 11/15/19 [History Last Taken Unknown] duloxetine 30 mg PO DAILY 05/27/20 [History Last Taken Unknown] lurasidone 1 tab PO DAILY 05/27/20 [History Last Taken Unknown] pantoprazole 40 mg PO BID 05/27/20 [History Last Taken Unknown] metformin 500 mg PO DAILY 09/02/20 [History Last Taken Unknown] ondansetron 4 mg PO Q8H PRN #10 tab 09/11/20 [Rx Last Taken Unknown] psyllium husk (aspartame) [Metamucil Fiber Singles] 1 packet PO DAILY PRN PRN #0 ea 09/19/20 [Rx Last Taken Unknown] hydroxyzine pamoate [Vistaril] 25 mg PO TID PRN #14 cap 12/05/20 [Rx Last Taken Unknown] alendronate [Fosamax] 70 mg PO QWEEK 02/18/21 [History Last Taken Unknown] furosemide [Lasix] 20 mg PO DAILY 02/18/21 [History Last Taken Unknown] mirtazapine 30 mg PO QHS 02/18/21 [History Last Taken Unknown] pravastatin 80 mg PO QHS 02/18/21 [History Last Taken Unknown] prazosin 5 mg PO QHS 02/18/21 [History Last Taken Unknown] Allergy/AdvReac Type Severity Reaction Status Date / Time acetaminophen [From Tylenol] AdvReac Upset Verified 04/05/21 03:26 Stomach amoxicillin [From Augmentin] AdvReac Hives Verified 04/05/21 03:26 clavulanic acid AdvReac Hives Verified 04/05/21 03:26 [From Augmentin] ibuprofen [From Advil] AdvReac Nausea Verified 04/05/21 03:26 sulfamethoxazole AdvReac Vomiting Verified 04/05/21 03:26 [From Bactrim] sumatriptan [From Imitrex] AdvReac Vomiting Verified 04/05/21 03:26 sumatriptan succinate AdvReac Vomiting Verified 04/05/21 03:26 [From Imitrex] trimethoprim [From Bactrim] AdvReac Vomiting Verified 04/05/21 03:26 BEE STING Allergy Anaphylaxis Uncoded 04/05/21 03:26 ANTI PSYCHOTICS AdvReac Other Uncoded 04/05/21 03:26 PAPER TAPE AdvReac Rash Uncoded 04/05/21 03:26 Family History Mother Hypertension Father Hypertension Surgical History H/O hand surgery H/O knee surgery History of cholecystectomy History of left heart catheterization (06/23/19) Social History household members: none Smoking Status: Current some day smoker tobacco type: cigarettes alcohol intake: never substance use type: does not use ROS ROS ED Constitutional Constitutional ED: Denies chills or fever(s) ENT ENT ED: Denies sore throat Cardiovascular Cardiovascular: Denies chest pain Respiratory/Chest Respiratory/Chest: Denies cough or dyspnea Gastrointestinal Gastrointestinal: Reports abdominal pain, nausea and vomiting; Denies diarrhea Genitourinary Genitourinary ED: Denies dysuria Musculoskeletal Musculoskeletal: Reports myalgias Integumentary Reports rash Neurologic Neurologic: Denies headache(s) Psychiatric Psychiatric: Denies suicidal ideation or suicidal thoughts Hematologic/Lymphatic Hematologic/Lymphatic: Denies easy bleeding or easy bruising EXAM Physical Exam Const Vital Signs: 04/05/21 03:21 Temperature 97.5 F L Temperature Source Oral Pulse Rate 85 Respiratory Rate 16 Blood Pressure 118/76 Blood Pressure Mean 90 Pulse Ox 98 Oxygen Delivery Method Room Air Positive well nourished, well developed and obese General Appearance ED: well developed Nutritional Appearance: obese HEENT Reports moist mucous membranes Eyes PERRL and EOMs intact bilaterally Neck supple Resp normal respiratory effort and clear to auscultation bilaterally Cardio regular rate and regular rhythm Rate: other Other Details: Radial pulses are plus 2 out of 4 bilaterally are equal and symmetric GI non-distended GI Narrative: There is mild pain on palpation diffusely but no voluntary guarding or rigidity no pulsatile mass Auscultation: normoactive bowel sounds Palpation: soft Extremity normal to inspection Neuro oriented x3 and CN's II-XII intact bilaterally Sensorium / Orientation: alert Motor Exam: strength 5/5 throughout Psych Psych Narrative: Patient has a paranoid and depressed affect but no homicidal or suicidal ideations Skin no rashes or lesions noted MDM MDM MDM Narrative Medical decision making narrative: Patient presented to the ER in no acute distress with a nonfocal exam. She reported multiple different reasons for calling 911 this evening but the recurrent theme was the radiation waves causing changes to her health. The patient has been seen multiple times in the ER for a similar complaint and is well-known to the ER. At this time she is at her baseline mental status without homicidal or suicidal ideations and does not have acute worsening of her paranoid schizophrenia. By exam there is no signs of infection and therefore do not feel there is need for work-up and patient can be discharged at this time. Discharge Plan Triage Chief Complaint: Mental Health ED Provider: Chris Valentine Dx/Rx/DC Orders Clinical Impression: Chronic paranoid schizophrenia Instructions: ED Schizophrenia, Paranoid Type Prescriptions: No Action albuterol sulfate 1 INHALER inhaler 2 puff inhalation Q6H PRN PRN (Reason: Shortness Of Breath) RF: 0 calcium carbonate-vitamin D3 1 EACH tablet 1 ea PO DAILY RF: 0 metoprolol succinate 25 MG tablet extended release 24 hr 25 mg PO DAILY RF: 0 divalproex 250 MG tablet 250 mg PO BIDCM RF: 0 topiramate 200 MG tablet 200 mg PO BID RF: 0 pantoprazole 40 MG tablet 40 mg PO BID RF: 0 lurasidone 40 MG tablet 1 tab PO DAILY RF: 0 duloxetine 30 MG capsule,delayed release(DR/EC) 30 mg PO DAILY RF: 0 metformin 500 mg tablet 500 mg PO DAILY RF: 0 ondansetron 4 mg tablet,disintegrating 4 mg PO Q8H PRN (Reason: nausea and vomiting) Qty: 10 RF: 0 Metamucil Fiber Singles 3.4 gram Powder In Packet 1 packet PO DAILY PRN PRN (Reason: Constipation) Qty: 0 RF: 0 hydroxyzine pamoate [Vistaril] 25 mg capsule 25 mg PO TID PRN (Reason: itching) Qty: 14 RF: 0 mirtazapine 30 mg Tablet,Disintegrating 30 mg PO QHS RF: 0 prazosin 1 mg Capsule 5 mg PO QHS RF: 0 alendronate [Fosamax] 70 mg Tablet 70 mg PO QWEEK RF: 0 pravastatin 80 mg Tablet 80 mg PO QHS RF: 0 furosemide [Lasix] 20 mg Tablet 20 mg PO DAILY RF: 0 Primary Care Provider: Care Physician,No Primary Referrals: Laura Michel MD [STAFF PHYSICIAN] - 1 Week Care Physician,No Primary [Primary Care Provider] - Disposition Disposition: Home, Self Care Discharge Date/Time: 04/05/21 05:02
--- NOTE | 2021-04-05 04:56 | ED.RN ---
this nurse went in to discharge patient. Patient refusing to leave stating she needs to be admitted to a hospital. Nurse went over paperwork and advised her that she does not need to be admitted. patient is suffering from chronic condition and no acute issue. patient refusing to accept this. patient demanding to be transferred and admitted. patient advised that she can not be transferred there is no need at this time per doctor and we can not call a squad to take her to another hospital. patient states the hospital needs to find her a way home. patient advised that the hospital does not set up transportation home. patient at this time arguing with staff. advised to call [facility] to set up more appointments. patient wants admitted to hospital. patient advised she will need to find her own transportation to get to that hospital. patient upset and not willing to accept this information. patient thru discharge paperwork across room and wheeled herself out the doors and will not leave at this time. Security made aware at this time
--- NOTE | 2021-04-05 09:58 | CM.ED ---
Addendum entered by Geno Moise 04/05/21 10:13: Randee met with MD Palacio. Per MD patient eloped as she went outside to smoke and get ride to [facility]. Patient has left the [facility] and not available for assessment. Per MD patient denied SI/HI. Geno HERNÁNDEZ Original Note: RANDEE Note SW received consult from MD Palacio regarding patient. However, patient has been discharged. Geno HERNÁNDEZ
--- NOTE | 2021-04-05 11:03 | CM.ED ---
Addendum entered by Geno Moise 04/05/21 12:42: SW went out to the [facility] at 12:42, following a zoom meeting, and patient was not in the waiting room and SW did not see her outside. 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 ELÍAS was advised by Pastora DOMINGUEZ that was patient, who had eloped from the ED. AT 10:56 am SW went outside with security and was unable to locate patient however SW went into the waiting room and attempted to meet with patient however, she was on the phone. SW attempted to meet with patient however, was unsuccessful as patient was on phone. Geno HERNÁNDEZ
== END 2021-04-05 05:02 | disposition home or self-care (01) ==
PROVIDERS: Emergency Provider Emergency Medicine
DX: F20.0 Paranoid schizophrenia (principal); E66.9 Obesity, unspecified; J45.909 Unspecified asthma, uncomplicated; I25.10 Atherosclerotic heart disease of native coronary artery without angina pectoris
CPT/HCPCS: 99283

== ENCOUNTER 2021-04-05 07:24 | Emergency (ER) | payer MEDICARE, MEDICAID, SELFPAY ==
[2021-04-05 07:25] VITALS: BP 129/78; PULSE 89; RESP 18; TEMP 35.8; O2SAT 96; BMI 42.5
--- NOTE | 2021-04-05 07:47 | EDS_ITS ---
HPI HPI - Psych History of Present Illness Chief Complaint: Anxiety Narrative Narrative: Patient was seen earlier in the morning, and had arrived via 911. She had been medically screened and discharged. Of note, she had a visit to the emergency department the day before. She is well-known to the emergency department. As she was sitting out in the waiting room, she wanted to be seen again because of the shift change. She states that she wants to go to the [facility] because she has not seen her new psychiatrist. She feels that she is unstable. However, when asked what she meant by this, she cannot specifically say. She states that she is scared to that her dog is going to . Additionally, she states that she wants to be admitted to the [facility] and get better. She mentioned that she feels as if she wants to cut herself and she has not done that in a long time, however, she denies suicidal ideation or plan. PFSH PFS Medical History Anxiety Asthma Chronic pain Coronary artery disease Depression Former smoker GERD (gastroesophageal reflux disease) History of fracture of hand Hypertension Irregular heart beat Migraines On home oxygen therapy PTSD (post-traumatic stress disorder) Seizures Stroke/cerebrovascular accident Home Medications albuterol sulfate 2 puff INHALATION Q6H PRN PRN 02/20/18 [History Last Taken 06/21/19 18:00] calcium carbonate-vitamin D3 1 ea PO DAILY 06/13/19 [History Last Taken 06/19/19] metoprolol succinate 25 mg PO DAILY 07/08/19 [History Last Taken 07/21/19] divalproex 250 mg PO BIDCM 11/15/19 [History Last Taken Unknown] topiramate 200 mg PO BID 11/15/19 [History Last Taken Unknown] duloxetine 30 mg PO DAILY 05/27/20 [History Last Taken Unknown] lurasidone 1 tab PO DAILY 05/27/20 [History Last Taken Unknown] pantoprazole 40 mg PO BID 05/27/20 [History Last Taken Unknown] metformin 500 mg PO DAILY 09/02/20 [History Last Taken Unknown] ondansetron 4 mg PO Q8H PRN #10 tab 09/11/20 [Rx Last Taken Unknown] psyllium husk (aspartame) [Metamucil Fiber Singles] 1 packet PO DAILY PRN PRN #0 ea 09/19/20 [Rx Last Taken Unknown] hydroxyzine pamoate [Vistaril] 25 mg PO TID PRN #14 cap 12/05/20 [Rx Last Taken Unknown] alendronate [Fosamax] 70 mg PO QWEEK 02/18/21 [History Last Taken Unknown] furosemide [Lasix] 20 mg PO DAILY 02/18/21 [History Last Taken Unknown] mirtazapine 30 mg PO QHS 02/18/21 [History Last Taken Unknown] pravastatin 80 mg PO QHS 02/18/21 [History Last Taken Unknown] prazosin 5 mg PO QHS 02/18/21 [History Last Taken Unknown] Allergy/AdvReac Type Severity Reaction Status Date / Time acetaminophen [From Tylenol] AdvReac Upset Verified 04/05/21 07:25 Stomach amoxicillin [From Augmentin] AdvReac Hives Verified 04/05/21 07:25 clavulanic acid AdvReac Hives Verified 04/05/21 07:25 [From Augmentin] ibuprofen [From Advil] AdvReac Nausea Verified 04/05/21 07:25 sulfamethoxazole AdvReac Vomiting Verified 04/05/21 07:25 [From Bactrim] sumatriptan [From Imitrex] AdvReac Vomiting Verified 04/05/21 07:25 sumatriptan succinate AdvReac Vomiting Verified 04/05/21 07:25 [From Imitrex] trimethoprim [From Bactrim] AdvReac Vomiting Verified 04/05/21 07:25 BEE STING Allergy Anaphylaxis Uncoded 04/05/21 07:25 ANTI PSYCHOTICS AdvReac Other Uncoded 04/05/21 07:25 PAPER TAPE AdvReac Rash Uncoded 04/05/21 07:25 Family History Mother Hypertension Father Hypertension Surgical History H/O hand surgery H/O knee surgery History of cholecystectomy History of left heart catheterization (06/23/19) Social History household members: none Smoking Status: Current some day smoker tobacco type: cigarettes alcohol intake: never substance use type: does not use ROS ROS ED ROS Narrative Constitutional: No fever, no chills. HEENT: No sore throat. No neck pain. No loss of vision. No rhinorrhea. Cardiovascular: No chest pain. No palpitations. No pedal edema. Respiratory: No cough, no shortness of breath. Abdominal: No abdominal pain. No nausea. No vomiting. Genitourinary: No dysuria. No hematuria. Musculoskeletal: No myalgias. No arthralgias. Neurologic: No headaches. No dizziness. No lightheadedness. Skin: No rash. No change in color. Psychiatric: Mild depression. No anxiety. Unstable EXAM Physical Exam Narrative Exam Narrative: Afebrile. Vital signs noted. HEENT: Normocephalic. Atraumatic. PERRL, EOMI. Neck soft and supple. No point tenderness or step off. Cardiovascular: Regular rate and rhythm. No murmurs, rubs, or gallops appreciated. Respiratory: No tachypnea. Lungs clear to auscultation bilaterally. Gastrointestinal: Abdomen soft, nontender, with normoactive bowel sounds. No rebound or guarding. Neurological: Awake. Alert. Nonfocal, nonlateralizing. Skin: No rash. Normal color. No pallor. Musculoskeletal: No pedal edema. Full range of motion extremities. Psychiatric: Denies suicidal ideation when asked directly. Const Vital Signs: 04/05/21 07:25 Temperature 96.5 F L Temperature Source Temporal Pulse Rate 89 Respiratory Rate 18 Blood Pressure 129/78 H Blood Pressure Mean 95 Pulse Ox 96 Oxygen Delivery Method Room Air MDM MDM MDM Narrative Medical decision making narrative: I reviewed her prior charts/electronic medical record. She had basic laboratories drawn 2 days ago because she thought she was anemic. Patient will be seen by case management/social work. However, I do not feel that she needs emergent psychiatric admission. Patient had gone outside to smoke and returned to her room. As she was waiting for social work/case management to arrive, I was told by the RN that she had called a cab to take her to the [facility]. She had eloped from her room. I would not print out discharge instructions for her as she had left the room prior to being evaluated/formal discharge. She was in stable condition. Discharge Plan Triage Chief Complaint: Anxiety ED Provider: James Palacio Dx/Rx/DC Orders Clinical Impression: Chronic schizophrenia Instructions: ED Schizophrenia, General Prescriptions: No Action albuterol sulfate 1 INHALER inhaler 2 puff inhalation Q6H PRN PRN (Reason: Shortness Of Breath) RF: 0 calcium carbonate-vitamin D3 1 EACH tablet 1 ea PO DAILY RF: 0 metoprolol succinate 25 MG tablet extended release 24 hr 25 mg PO DAILY RF: 0 divalproex 250 MG tablet 250 mg PO BIDCM RF: 0 topiramate 200 MG tablet 200 mg PO BID RF: 0 pantoprazole 40 MG tablet 40 mg PO BID RF: 0 lurasidone 40 MG tablet 1 tab PO DAILY RF: 0 duloxetine 30 MG capsule,delayed release(DR/EC) 30 mg PO DAILY RF: 0 metformin 500 mg tablet 500 mg PO DAILY RF: 0 ondansetron 4 mg tablet,disintegrating 4 mg PO Q8H PRN (Reason: nausea and vomiting) Qty: 10 RF: 0 Metamucil Fiber Singles 3.4 gram Powder In Packet 1 packet PO DAILY PRN PRN (Reason: Constipation) Qty: 0 RF: 0 hydroxyzine pamoate [Vistaril] 25 mg capsule 25 mg PO TID PRN (Reason: itching) Qty: 14 RF: 0 mirtazapine 30 mg Tablet,Disintegrating 30 mg PO QHS RF: 0 prazosin 1 mg Capsule 5 mg PO QHS RF: 0 alendronate [Fosamax] 70 mg Tablet 70 mg PO QWEEK RF: 0 pravastatin 80 mg Tablet 80 mg PO QHS RF: 0 furosemide [Lasix] 20 mg Tablet 20 mg PO DAILY RF: 0 Primary Care Provider: Care Physician,No Primary Referrals: Care Physician,No Primary [Primary Care Provider] - Disposition Disposition: Elopement Discharge Date/Time: 04/05/21 09:55
--- NOTE | 2021-04-05 09:16 | ED.RN ---
pt wheeled herself outside, per provider, if pt goes outside again she will be d/c.
--- NOTE | 2021-04-05 09:54 | ED.RN ---
pt called [facility] to take her to [facility]
== END 2021-04-05 09:55 | disposition left against medical advice (07) ==
PROVIDERS: Emergency Provider Emergency Medicine
DX: F20.0 Paranoid schizophrenia (principal); I25.10 Atherosclerotic heart disease of native coronary artery without angina pectoris; E66.9 Obesity, unspecified; F17.210 Nicotine dependence, cigarettes, uncomplicated
CPT/HCPCS: 99282; 99283

== ENCOUNTER 2021-06-23 01:26 | Emergency (ER) | payer MEDICARE, MEDICAID, SELFPAY ==
[2021-06-23 01:27] VITALS: BP 112/94; PULSE 85; RESP 16; TEMP 36.9; O2SAT 99; BMI 37.4
--- NOTE | 2021-06-23 01:54 | EDS_ITS ---
HPI History of Present Illness Chief Complaint: Back Narrative Narrative: Patient is a 65-year-old female who reports a past medical history of a bad back. She states that she has been doing excessive activity recently and is noticed pain in her general entire back region that is worse with any type of motion. She denies any direct trauma fevers chills hematuria dysuria loss of bowel or bladder control or IV drug use. She states she is taken her home medication with minimal symptom improvement and secondary to this comes to the hospital for evaluation [facility] Medical History Anxiety Asthma Chronic pain Coronary artery disease Depression Former smoker GERD (gastroesophageal reflux disease) History of fracture of hand Hypertension Irregular heart beat Migraines On home oxygen therapy PTSD (post-traumatic stress disorder) Seizures Stroke/cerebrovascular accident Home Medications albuterol sulfate 2 puff INHALATION Q6H PRN PRN 02/20/18 [History Last Taken 06/21/19 18:00] calcium carbonate-vitamin D3 1 ea PO DAILY 06/13/19 [History Last Taken 06/19/19] metoprolol succinate 25 mg PO DAILY 07/08/19 [History Last Taken 07/21/19] divalproex 250 mg PO BIDCM 11/15/19 [History Last Taken Unknown] topiramate 200 mg PO BID 11/15/19 [History Last Taken Unknown] duloxetine 30 mg PO DAILY 05/27/20 [History Last Taken Unknown] lurasidone 1 tab PO DAILY 05/27/20 [History Last Taken Unknown] pantoprazole 40 mg PO BID 05/27/20 [History Last Taken Unknown] metformin 500 mg PO DAILY 09/02/20 [History Last Taken Unknown] ondansetron 4 mg PO Q8H PRN #10 tab 09/11/20 [Rx Last Taken Unknown] psyllium husk (aspartame) [Metamucil Fiber Singles] 1 packet PO DAILY PRN PRN #0 ea 09/19/20 [Rx Last Taken Unknown] hydroxyzine pamoate [Vistaril] 25 mg PO TID PRN #14 cap 12/05/20 [Rx Last Taken Unknown] alendronate [Fosamax] 70 mg PO QWEEK 02/18/21 [History Last Taken Unknown] furosemide [Lasix] 20 mg PO DAILY 02/18/21 [History Last Taken Unknown] mirtazapine 30 mg PO QHS 02/18/21 [History Last Taken Unknown] pravastatin 80 mg PO QHS 02/18/21 [History Last Taken Unknown] prazosin 5 mg PO QHS 02/18/21 [History Last Taken Unknown] methocarbamol 500 mg PO 4X/DAY PRN PRN 10 Days #40 tab 06/23/21 [Rx Last Taken Unknown] Allergy/AdvReac Type Severity Reaction Status Date / Time acetaminophen [From Tylenol] AdvReac Upset Verified 04/05/21 07:25 Stomach amoxicillin [From Augmentin] AdvReac Hives Verified 04/05/21 07:25 clavulanic acid AdvReac Hives Verified 04/05/21 07:25 [From Augmentin] ibuprofen [From Advil] AdvReac Nausea Verified 04/05/21 07:25 sulfamethoxazole AdvReac Vomiting Verified 04/05/21 07:25 [From Bactrim] sumatriptan [From Imitrex] AdvReac Vomiting Verified 04/05/21 07:25 sumatriptan succinate AdvReac Vomiting Verified 04/05/21 07:25 [From Imitrex] trimethoprim [From Bactrim] AdvReac Vomiting Verified 04/05/21 07:25 BEE STING Allergy Anaphylaxis Uncoded 04/05/21 07:25 ANTI PSYCHOTICS AdvReac Other Uncoded 04/05/21 07:25 PAPER TAPE AdvReac Rash Uncoded 04/05/21 07:25 Family History Mother Hypertension Father Hypertension Surgical History H/O hand surgery H/O knee surgery History of cholecystectomy History of left heart catheterization (06/23/19) Social History household members: none Smoking Status: Current some day smoker tobacco type: cigarettes alcohol intake: never substance use type: does not use ROS ROS ED Constitutional Constitutional ED: Denies chills or fever(s) ENT ENT ED: Denies sore throat Cardiovascular Cardiovascular: Denies chest pain Respiratory/Chest Respiratory/Chest: Denies cough or dyspnea Gastrointestinal Gastrointestinal: Denies abdominal pain, diarrhea, nausea or vomiting Genitourinary Genitourinary ED: Denies dysuria Musculoskeletal Musculoskeletal: Reports back pain; Denies myalgias Integumentary Denies rash Neurologic Neurologic: Denies headache(s) Hematologic/Lymphatic Hematologic/Lymphatic: Denies easy bleeding or easy bruising EXAM Physical Exam Const Vital Signs: 06/23/21 01:27 Temperature 98.5 F Temperature Source Temporal Pulse Rate 85 Respiratory Rate 16 Blood Pressure 112/94 H Blood Pressure Mean 100 Pulse Ox 99 Oxygen Delivery Method Room Air Positive well nourished and well developed General Appearance ED: well developed Eyes PERRL and EOMs intact bilaterally Neck supple Resp normal respiratory effort and clear to auscultation bilaterally Cardio regular rate and regular rhythm Rate: other Other Details: Radial pulses are +2-4 bilaterally are equal and symmetric GI normal to inspection, nondistended, normoactive bowel sounds, non-tender, non- distended and no masses GI Narrative: No voluntary guarding or rigidity no pulsatile mass Auscultation: normoactive bowel sounds Palpation: soft Extremity Extremity Narrative: Patient has no bony deformity or step-off of her thoracic or lumbar spine. There is diffuse pain with palpation of the spine as well as the parathoracic and paralumbar muscle belly. Pain worsens with extension and rotation. No saddle anesthesia. Negative straight leg raise. No clonus or Babinski. Patellar reflexes are plus 1 out of 4 bilaterally Neuro oriented x3 and CN's II-XII intact bilaterally Sensorium / Orientation: alert Psych Psych Narrative: Patient has a nervous/anxious affect Skin no rashes or lesions noted Skin Narrative: No overlying soft tissue changes to suggest trauma or infection MDM MDM MDM Narrative Medical decision making narrative: Patient presented to the ER no acute distress with no report or physical exam findings concerning for cauda equina or epidural abscess. She also had no report or signs of trauma or infection on exam. She reported excessive activity recently and as there was no one section of localized pain but more of diffuse back pain I do not feel there is need for work-up. Patient be medicated with Toradol Norflex to help reduce her pain and placed on Robaxin for home. However at this time I do not feel there is an infectious or bony process going on at this time and patient can simply be medicated and discharged with outpatient follow-up Discharge Plan Triage Chief Complaint: Back ED Provider: Chris Valentine Dx/Rx/DC Orders Clinical Impression: Acute exacerbation of chronic low back pain, Thoracic myofascial strain Instructions: ED Back Care Tips, ED Back Sprain/Strain Prescriptions: New methocarbamol 500 mg tablet 500 mg PO 4X/DAY PRN PRN (Reason: Muscle pain/spasm) 10 Days Qty: 40 RF: 0 No Action albuterol sulfate 1 INHALER inhaler 2 puff inhalation Q6H PRN PRN (Reason: Shortness Of Breath) RF: 0 calcium carbonate-vitamin D3 1 EACH tablet 1 ea PO DAILY RF: 0 metoprolol succinate 25 MG tablet extended release 24 hr 25 mg PO DAILY RF: 0 divalproex 250 MG tablet 250 mg PO BIDCM RF: 0 topiramate 200 MG tablet 200 mg PO BID RF: 0 pantoprazole 40 MG tablet 40 mg PO BID RF: 0 lurasidone 40 MG tablet 1 tab PO DAILY RF: 0 duloxetine 30 MG capsule,delayed release(DR/EC) 30 mg PO DAILY RF: 0 metformin 500 mg tablet 500 mg PO DAILY RF: 0 ondansetron 4 mg tablet,disintegrating 4 mg PO Q8H PRN (Reason: nausea and vomiting) Qty: 10 RF: 0 Metamucil Fiber Singles 3.4 gram Powder In Packet 1 packet PO DAILY PRN PRN (Reason: Constipation) Qty: 0 RF: 0 hydroxyzine pamoate [Vistaril] 25 mg capsule 25 mg PO TID PRN (Reason: itching) Qty: 14 RF: 0 mirtazapine 30 mg Tablet,Disintegrating 30 mg PO QHS RF: 0 prazosin 1 mg Capsule 5 mg PO QHS RF: 0 alendronate [Fosamax] 70 mg Tablet 70 mg PO QWEEK RF: 0 pravastatin 80 mg Tablet 80 mg PO QHS RF: 0 furosemide [Lasix] 20 mg Tablet 20 mg PO DAILY RF: 0 Primary Care Provider: Care Physician,No Primary Referrals: Debbie Aleman MD [STAFF PHYSICIAN] - 1 Week if not improving Care Physician,No Primary [Primary Care Provider] - Disposition Disposition: Home, Self Care
[2021-06-23] MEDS: Ketorolac 30 MG/ML Syringe IM (02:31)
[2021-06-23] MEDS: Orphenadrine 60 MG/2 ML Ampul IM (02:32)
== END 2021-06-23 02:37 | disposition home or self-care (01) ==
PROVIDERS: Emergency Provider Emergency Medicine; Visit Provider Emergency Medicine
DX: M54.50 Low back pain, unspecified (principal); S29.019A Strain of muscle and tendon of unspecified wall of thorax, initial encounter; I25.10 Atherosclerotic heart disease of native coronary artery without angina pectoris; F17.210 Nicotine dependence, cigarettes, uncomplicated; G89.29 Other chronic pain; Z99.81 Dependence on supplemental oxygen; X58.XXXA Exposure to other specified factors, initial encounter
CPT/HCPCS: 96372; 99281; 99282

== ENCOUNTER 2021-07-04 12:04 | Emergency (ER) | payer MEDICARE, MEDICAID, SELFPAY ==
[2021-07-04 12:05] VITALS: BP 135/87; PULSE 87; RESP 16; TEMP 36.2; O2SAT 99; BMI 40.2
--- NOTE | 2021-07-04 13:20 | EX.ED.VIS.HA ---
HPI History of Present Illness Chief Complaint: Headache Narrative Narrative: Patient presents with migraine that she has had since 5 PM last evening. Has been approximately 20 hours. It is associated with nausea but no vomiting. She states she has history of migraine headaches for which she takes Depakote and Topamax. She has no rescue medications. States her migraines are becoming more frequent. She sees Dr. Davila her neurologist in [place]. She has past medical history of diabetes, schizophrenia, COPD, and is well-known to the emergency department. She denies any numbness or tingling of her arms or legs but states that she has a headache similar to her previous migraines and her temples that radiates back towards her neck. She denies any fevers or chills. No other symptoms. [facility] Medical History Anxiety Asthma Chronic pain Coronary artery disease Depression Former smoker GERD (gastroesophageal reflux disease) History of fracture of hand Hypertension Irregular heart beat Migraines On home oxygen therapy PTSD (post-traumatic stress disorder) Seizures Stroke/cerebrovascular accident Home Medications albuterol sulfate 2 puff INHALATION Q6H PRN PRN 02/20/18 [History Last Taken 06/21/19 18:00] calcium carbonate-vitamin D3 1 ea PO DAILY 06/13/19 [History Last Taken 06/19/19] metoprolol succinate 25 mg PO DAILY 07/08/19 [History Last Taken 07/21/19] divalproex 250 mg PO BIDCM 11/15/19 [History Last Taken Unknown] topiramate 200 mg PO BID 11/15/19 [History Last Taken Unknown] duloxetine 30 mg PO DAILY 05/27/20 [History Last Taken Unknown] lurasidone 1 tab PO DAILY 05/27/20 [History Last Taken Unknown] pantoprazole 40 mg PO BID 05/27/20 [History Last Taken Unknown] metformin 500 mg PO DAILY 09/02/20 [History Last Taken Unknown] ondansetron 4 mg PO Q8H PRN #10 tab 09/11/20 [Rx Last Taken Unknown] psyllium husk (aspartame) [Metamucil Fiber Singles] 1 packet PO DAILY PRN PRN #0 ea 09/19/20 [Rx Last Taken Unknown] hydroxyzine pamoate [Vistaril] 25 mg PO TID PRN #14 cap 12/05/20 [Rx Last Taken Unknown] alendronate [Fosamax] 70 mg PO QWEEK 02/18/21 [History Last Taken Unknown] furosemide [Lasix] 20 mg PO DAILY 02/18/21 [History Last Taken Unknown] mirtazapine 30 mg PO QHS 02/18/21 [History Last Taken Unknown] pravastatin 80 mg PO QHS 02/18/21 [History Last Taken Unknown] prazosin 5 mg PO QHS 02/18/21 [History Last Taken Unknown] methocarbamol 500 mg PO 4X/DAY PRN PRN 10 Days #40 tab 06/23/21 [Rx Last Taken Unknown] Allergy/AdvReac Type Severity Reaction Status Date / Time acetaminophen [From Tylenol] AdvReac Upset Verified 04/05/21 07:25 Stomach amoxicillin [From Augmentin] AdvReac Hives Verified 04/05/21 07:25 clavulanic acid AdvReac Hives Verified 04/05/21 07:25 [From Augmentin] ibuprofen [From Advil] AdvReac Nausea Verified 04/05/21 07:25 sulfamethoxazole AdvReac Vomiting Verified 04/05/21 07:25 [From Bactrim] sumatriptan [From Imitrex] AdvReac Vomiting Verified 04/05/21 07:25 sumatriptan succinate AdvReac Vomiting Verified 04/05/21 07:25 [From Imitrex] trimethoprim [From Bactrim] AdvReac Vomiting Verified 04/05/21 07:25 BEE STING Allergy Anaphylaxis Uncoded 04/05/21 07:25 ANTI PSYCHOTICS AdvReac Other Uncoded 04/05/21 07:25 PAPER TAPE AdvReac Rash Uncoded 04/05/21 07:25 Family History Mother Hypertension Father Hypertension Surgical History H/O hand surgery H/O knee surgery History of cholecystectomy History of left heart catheterization (06/23/19) Social History household members: none Smoking Status: Former smoker alcohol intake: never substance use type: does not use ROS ROS ED ROS Narrative Constitutional: No fever, no chills. HEENT: No sore throat. No neck pain. No loss of vision. No rhinorrhea. Cardiovascular: No chest pain. No palpitations. No pedal edema. Respiratory: No cough, no shortness of breath. Abdominal: No abdominal pain. Positive nausea. No vomiting. Genitourinary: No dysuria. No hematuria. Musculoskeletal: No myalgias. No arthralgias. Neurologic: Temporal headaches with history of migraines. No dizziness. No lightheadedness. Skin: No rash. No change in color. Psychiatric: No depression. No anxiety. EXAM Physical Exam Narrative Exam Narrative: Afebrile. Vital signs noted. HEENT: Normocephalic. Atraumatic. PERRL, EOMI. Neck soft and supple. No point tenderness or step off. Cardiovascular: Regular rate and rhythm. No murmurs, rubs, or gallops appreciated. Respiratory: No tachypnea. Lungs clear to auscultation bilaterally. Gastrointestinal: Abdomen soft, nontender, with normoactive bowel sounds. No rebound or guarding. Neurological: Awake. Alert. Oriented. Nonfocal, nonlateralizing. Skin: No rash. Normal color. No pallor. Musculoskeletal: No pedal edema. Full range of motion extremities. Const Vital Signs: 07/04/21 12:05 07/04/21 14:10 Temperature 97.1 F L Temperature Source Temporal Pulse Rate 87 80 Respiratory Rate 16 15 Blood Pressure 135/87 H 106/50 L Blood Pressure Mean 103 68 Pulse Ox 99 98 Oxygen Delivery Method Room Air MDM MDM MDM Narrative Medical decision making narrative: We will check her baseline labs including CBC and BMP. She will be given a liter of IV fluids, Compazine and Benadryl for her headache. She was given Compazine and Benadryl. Her laboratory work is grossly unremarkable with a normal white count, normal hemoglobin at 12.7. Electrolyte panel is grossly unremarkable. I do not feel that she requires CT imaging of her brain. She has mild dystonia from her Compazine and wanted to leave. I feel she be discharged safely home with follow-up. Return instructions to the emergency department were reviewed. Disposition is discharged home in stable condition. Lab Data Attestation: I reviewed the patient's lab results. Labs: Laboratory Results - last 24 hr 07/04/21 07/04/21 14:01 14:01 WBC 7.5 RBC 3.93 L Hgb 12.7 Hct 37.8 MCV 96.2 MCH 32.3 H MCHC 33.6 RDW Std Deviation 49.1 H RDW Coeff of Lenora 13.8 Plt Count 211 MPV 9.6 Immature Gran % (Auto) 0.100 Neut % (Auto) 46.9 L Lymph % (Auto) 34.5 [place] % (Auto) 13.0 H Eos % (Auto) 4.4 Baso % (Auto) 1.1 H Absolute Neuts (auto) 3.5 Absolute Lymphs (auto) 2.60 Nucleated RBC % 0 Sodium 141 Potassium 3.7 Chloride 106 Carbon Dioxide 32.0 Anion Gap 3 L BUN 17 Creatinine 0.79 Estim Creat Clear Calc 56.90 Est GFR (MDRD) Af Amer 95 Est GFR (MDRD) Non-Af 78 BUN/Creatinine Ratio 21.6 H Glucose 107 H Calcium 8.8 Discharge Plan Triage Chief Complaint: Headache ED Provider: James Palacoi Dx/Rx/DC Orders Clinical Impression: Headache, migraine Instructions: ED, Migraine (Classical) Prescriptions: No Action albuterol sulfate 1 INHALER inhaler 2 puff inhalation Q6H PRN PRN (Reason: Shortness Of Breath) RF: 0 calcium carbonate-vitamin D3 1 EACH tablet 1 ea PO DAILY RF: 0 metoprolol succinate 25 MG tablet extended release 24 hr 25 mg PO DAILY RF: 0 divalproex 250 MG tablet 250 mg PO BIDCM RF: 0 topiramate 200 MG tablet 200 mg PO BID RF: 0 pantoprazole 40 MG tablet 40 mg PO BID RF: 0 lurasidone 40 MG tablet 1 tab PO DAILY RF: 0 duloxetine 30 MG capsule,delayed release(DR/EC) 30 mg PO DAILY RF: 0 metformin 500 mg tablet 500 mg PO DAILY RF: 0 ondansetron 4 mg tablet,disintegrating 4 mg PO Q8H PRN (Reason: nausea and vomiting) Qty: 10 RF: 0 Metamucil Fiber Singles 3.4 gram Powder In Packet 1 packet PO DAILY PRN PRN (Reason: Constipation) Qty: 0 RF: 0 hydroxyzine pamoate [Vistaril] 25 mg capsule 25 mg PO TID PRN (Reason: itching) Qty: 14 RF: 0 mirtazapine 30 mg Tablet,Disintegrating 30 mg PO QHS RF: 0 prazosin 1 mg Capsule 5 mg PO QHS RF: 0 alendronate [Fosamax] 70 mg Tablet 70 mg PO QWEEK RF: 0 pravastatin 80 mg Tablet 80 mg PO QHS RF: 0 furosemide [Lasix] 20 mg Tablet 20 mg PO DAILY RF: 0 methocarbamol 500 mg tablet 500 mg PO 4X/DAY PRN PRN (Reason: Muscle pain/spasm) 10 Days Qty: 40 RF: 0 Primary Care Provider: Care Physician,No Primary Referrals: Care Physician,No Primary [Primary Care Provider] - Disposition Disposition: Home, Self Care
[2021-07-04] MEDS: DiphenhydrAMINE 50 MG/ML Syringe 25 MG IV (14:04)
[2021-07-04 14:05] LABS: Absolute Neutrophil Count 3.5 X10^3/uL (2.0-7.7); Basophil# 0.08 X10^3/uL; Basophil% 1.1 % (0-1); Eosinophil# 0.33 X10^3/uL; Eosinophils% 4.4 % (0-5); Hematocrit 37.8 % (37-47); Hemoglobin 12.7 g/dL (12.0-15.0); Lymphocyte % 34.5 % (19-41); Mean Corp Hgb Conc 33.6 g/dL (32-36); Mean Corpuscular Hgb 32.3 pg (27.0-32.0); Mean Corpuscular Volume 96.2 fL (81-99); Mean Platelet Vol. 9.6 fl (6.2-12.0); Monocyte# 0.98 X10^3/uL; NRBC Flagged by Analyzer 0 % (0-5); Neutrophil # 3.54 X10^3/uL (2.7-7.7); Neutrophil % 46.9 % (47-70); Platelet Count 211 K/mm3 (150-450); RBC Distribution Width CV 13.8 % (11.6-14.6); RBC Distribution Width SD 49.1 fl (35.1-43.9); Red Blood Count 3.93 M/mm3 (4.2-5.4); White Blood Count 7.5 K/mm3 (4.4-11.0)
[2021-07-04] MEDS: proCHLORPERazine 10 MG/2 ML Vial IV (14:05)
[2021-07-04] MEDS: 0.9% Normal Saline 1,000 ML 999 ML IV (14:05)
[2021-07-04 14:10] VITALS: BP 106/50; PULSE 80; RESP 15; O2SAT 98
[2021-07-04 14:17] LABS: Anion Gap 3 (5-15); BUN 17 mg/dL (7-18); BUN/Creat Ratio 21.6 RATIO (10-20); Calcium,Total 8.8 mg/dL (8.5-10.1); Chloride 106 mmol/L (98-107); Creatinine, Serum 0.79 mg/dL (0.55-1.02); EST Glomerular Filtration Rate 78 mL/min (>60); Est Glom Filt Rate - Afr Amer 95 mL/min (>60); Glucose 107 mg/dL (74-106); Potassium 3.7 mmol/L (3.5-5.1); Sodium Level 141 mmol/L (136-145)
--- NOTE | 2021-07-04 15:03 | ED.RN ---
Nicole at [facility] concerned about pt. Pt has been fired from her PCP and Mental Health Dr. Arce social work is aware and will talk to the pt prior to discharge
--- NOTE | 2021-07-04 15:11 | CM.ED ---
Social Work This high school social studies tutor notified by nursing staff that patient counseling case manager from [facility] voiced concerns for patient. Patient currently up for discharge. Patient getting into wheelchair, upon this high school social studies tutor entering the room. This high school social studies tutor introduced self and high school social studies tutor role. Patient agreeable to speak with this high school social studies tutor. This high school social studies tutor inquired if patient has any concerns currently. Patient reports to be working with counseling case manager on finding other housing. Patient states to not feel safe in current living situation. This high school social studies tutor inquired as to why patient does not feel safe. Patient states the radiation. Patient then showing this high school social studies tutor multiple pictures of what appears to be different pictures of the same lamp and points out the light around the lamp as radiation. This high school social studies tutor inquired if patient is taking care of self, patient states to be sleeping. Patient then states I need to go, my ride is here. Patient denies suicidal thoughts or plans. Patient denies paranoia and to be working on finding other housing. Patient not wanting to speak with this high school social studies tutor any longer. Patient getting bag and wanting to leave the ED. Collaborating with medical team, patient is able to make own choices as patient denies suicidal thoughts, plans, intents. Patient reports to be caring for self and does not appear unkept. Patient presenting with bizarre behavior but does not appear to be at risk of self currently. Patient then leaving the ED to be transported back to home with friend. Umu PAULINO, DORIS
[2021-07-04 15:12] VITALS: BP 113/74; PULSE 82; RESP 15; O2SAT 98
== END 2021-07-04 15:13 | disposition home or self-care (01) ==
PROVIDERS: Emergency Provider Emergency Medicine; Visit Provider Emergency Medicine
DX: G43.909 Migraine, unspecified, not intractable, without status migrainosus (principal); I25.10 Atherosclerotic heart disease of native coronary artery without angina pectoris; Z99.81 Dependence on supplemental oxygen; Z87.891 Personal history of nicotine dependence
CPT/HCPCS: 80048; 85025; 96374; 96375; 99285; J7030

== ENCOUNTER 2021-07-10 21:50 | Emergency (ER) | payer MEDICARE, MEDICAID, SELFPAY ==
[2021-07-10 21:51] VITALS: BP 116/73; PULSE 99; RESP 16; TEMP 36.7; O2SAT 95; BMI 47.0
[2021-07-10] MEDS: Ketorolac 15 MG/ML Vial IV (22:23)
--- NOTE | 2021-07-10 22:25 | CT_ITS ---
EXAM: CT ABDOMEN AND PELVIS WITHOUT INTRAVENOUS CONTRAST CLINICAL INDICATION: left flank pain TECHNIQUE: Helically acquired images were obtained of the abdomen and pelvis without intravenous contrast. CTDIvol = ( 24.07 ) mGy, DLP = ( 1178.77 ) mGycm This CT exam was performed using one or more of the following dose reduction techniques: automated exposure control, adjustment of the mA and/or kV according to patient size, and/or use of iterative reconstruction technique. This report was created using [employer] report generation technology. COMPARISON: None. FINDINGS: LOWER THORAX: Unremarkable. Lung bases are clear. No cardiomegaly. No significant pericardial effusion. ABDOMEN: LIVER: Unremarkable. Homogeneous. GALLBLADDER AND BILE DUCTS: Unremarkable. No calcified gallstones. No gallbladder distention or wall edema. No intra- or extrahepatic biliary ductal dilation. PANCREAS: Unremarkable. No focal cystic mass. SPLEEN: Unremarkable. Normal size without focal cystic or solid mass. ADRENALS: Unremarkable. No nodules. KIDNEYS AND URETERS: 5 mm nonobstructing calyceal calculus at the lower pole left kidney. Punctate calyceal calculus at the lower pole of the right kidney. No hydronephrosis. No other renal abnormalities. STOMACH AND BOWEL: Distal colonic diverticulosis but no acute diverticulitis. No stomach or bowel distention. PELVIS: APPENDIX: No evidence of acute appendicitis. BLADDER: Unremarkable. REPRODUCTIVE: Unremarkable as visualized. No mass. ABDOMEN and PELVIS: INTRAPERITONEAL SPACE: Unremarkable. No ascites or other fluid collection. No free air. BONES/JOINTS: Right total hip arthroplasty with satisfactory alignment and no other complications. No suspicious lytic or blastic abnormality. SOFT TISSUES: Unremarkable. No discrete abdominal or pelvic wall hernia. VASCULATURE: Unremarkable. Abdominal aorta is non-dilated. LYMPH NODES: Unremarkable. No enlarged lymph nodes. CT/Abdomen/Pelvis without Cont IMPRESSION: 5 mm nonobstructing calyceal calculus at the lower pole left kidney. Electronically Signed: Chris Victoria MD at 22:54 EDT ,
[2021-07-10 22:27] LABS: Mucous, Urine 0 SEEN /hpf (<or=2+)
[2021-07-10 22:28] LABS: Color, Urine Yellow (Yellow); Glucose, Dipstick Normal (Normal); Ketone-Dipstick Negative (Negative); Leukocyte Esterase-Dipstick 100 /ul (Negative); Nitrite-Dipstick Negative (Negative); Occult Blood-Urine 25 /ul (Negative); Protein-Dipstick Negative (Negative); Urine Bilirubin Dipstick Negative (Negative); Urine Clarity Clear (Clear); Urine Urobilinogen Normal (Normal)
[2021-07-10 22:28] LABS: Absolute Lymphocyte Count 3.82 X10^3/uL (0.83-4.51); Absolute Neutrophil Count 4.1 X10^3/uL (2.0-7.7); Basophil# 0.08 X10^3/uL; Basophil% 0.8 % (0-1); Eosinophil# 0.52 X10^3/uL; Eosinophils% 5.4 % (0-5); Hematocrit 39.1 % (37-47); Hemoglobin 13.2 g/dL (12.0-15.0); Lymphocyte # 3.82 X10^3/ul (0.83-4.51); Lymphocyte % 39.4 % (19-41); Mean Corp Hgb Conc 33.8 g/dL (32-36); Mean Corpuscular Hgb 32.7 pg (27.0-32.0); Mean Corpuscular Volume 96.8 fL (81-99); Mean Platelet Vol. 10.1 fl (6.2-12.0); Monocyte# 1.12 X10^3/uL; Monocyte% 11.6 % (0-10); NRBC Flagged by Analyzer 0 % (0-5); Neutrophil # 4.13 X10^3/uL (2.7-7.7); Neutrophil % 42.6 % (47-70); Platelet Count 241 K/mm3 (150-450); RBC Distribution Width CV 13.7 % (11.6-14.6); Red Blood Count 4.04 M/mm3 (4.2-5.4); White Blood Count 9.7 K/mm3 (4.4-11.0)
[2021-07-10 22:40] LABS: Bacteria RARE /hpf (None Seen); Red Blood Cells-Urine 0-5 SEEN /hpf (0-5); Squamous Epithelial Cells - UA 0-5 SEEN /hpf (5-10); White Blood Cells 0-5 SEEN /hpf (0-5)
[2021-07-10 22:42] LABS: Anion Gap 4 (5-15); BUN 15 mg/dL (7-18); BUN/Creat Ratio 16.6 RATIO (10-20); Calcium,Total 9.6 mg/dL (8.5-10.1); Chloride 106 mmol/L (98-107); Creatinine, Serum 0.91 mg/dL (0.55-1.02); EST Glomerular Filtration Rate 66 mL/min (>60); Est Glom Filt Rate - Afr Amer 80 mL/min (>60); Glucose 139 mg/dL (74-106); Potassium 4.4 mmol/L (3.5-5.1); Sodium Level 139 mmol/L (136-145)
--- NOTE | 2021-07-10 23:55 | EDS_ITS ---
HPI History of Present Illness Chief Complaint: Flank Pain Narrative Narrative: Patient is a 65-year-old female who states about 4 hours prior to arrival she was sitting in her chair and she noticed some pain in the left flank/back region. She states that it is more sharp in nature and does seem to radiate towards the abdomen. She denies any trauma or excessive activity recently. She denies any loss of bowel or bladder control or IV drug use. She states she was concerned she may have developed a kidney stone secondary to this comes to the hospital for evaluation [facility] Medical History Anxiety Asthma Chronic pain Coronary artery disease Depression Former smoker GERD (gastroesophageal reflux disease) History of fracture of hand Hypertension Irregular heart beat Migraines On home oxygen therapy PTSD (post-traumatic stress disorder) Seizures Stroke/cerebrovascular accident Home Medications albuterol sulfate 2 puff INHALATION Q6H PRN PRN 02/20/18 [History Last Taken 06/21/19 18:00] calcium carbonate-vitamin D3 1 ea PO DAILY 06/13/19 [History Last Taken 06/19/19] metoprolol succinate 25 mg PO DAILY 07/08/19 [History Last Taken 07/21/19] divalproex 250 mg PO BIDCM 11/15/19 [History Last Taken Unknown] topiramate 200 mg PO BID 11/15/19 [History Last Taken Unknown] duloxetine 30 mg PO DAILY 05/27/20 [History Last Taken Unknown] lurasidone 1 tab PO DAILY 05/27/20 [History Last Taken Unknown] pantoprazole 40 mg PO BID 05/27/20 [History Last Taken Unknown] metformin 500 mg PO DAILY 09/02/20 [History Last Taken Unknown] ondansetron 4 mg PO Q8H PRN #10 tab 09/11/20 [Rx Last Taken Unknown] psyllium husk (aspartame) [Metamucil Fiber Singles] 1 packet PO DAILY PRN PRN #0 ea 09/19/20 [Rx Last Taken Unknown] hydroxyzine pamoate [Vistaril] 25 mg PO TID PRN #14 cap 12/05/20 [Rx Last Taken Unknown] alendronate [Fosamax] 70 mg PO QWEEK 02/18/21 [History Last Taken Unknown] furosemide [Lasix] 20 mg PO DAILY 02/18/21 [History Last Taken Unknown] mirtazapine 30 mg PO QHS 02/18/21 [History Last Taken Unknown] pravastatin 80 mg PO QHS 02/18/21 [History Last Taken Unknown] prazosin 5 mg PO QHS 02/18/21 [History Last Taken Unknown] methocarbamol 500 mg PO 4X/DAY PRN PRN 10 Days #40 tab 06/23/21 [Rx Last Taken Unknown] diazepam [Valium] 2 mg PO TID PRN 5 Days #15 tab 07/10/21 [Rx Last Taken Un known] Allergy/AdvReac Type Severity Reaction Status Date / Time acetaminophen [From Tylenol] AdvReac Upset Verified 04/05/21 07:25 Stomach amoxicillin [From Augmentin] AdvReac Hives Verified 04/05/21 07:25 clavulanic acid AdvReac Hives Verified 04/05/21 07:25 [From Augmentin] ibuprofen [From Advil] AdvReac Nausea Verified 04/05/21 07:25 sulfamethoxazole AdvReac Vomiting Verified 04/05/21 07:25 [From Bactrim] sumatriptan [From Imitrex] AdvReac Vomiting Verified 04/05/21 07:25 sumatriptan succinate AdvReac Vomiting Verified 04/05/21 07:25 [From Imitrex] trimethoprim [From Bactrim] AdvReac Vomiting Verified 04/05/21 07:25 BEE STING Allergy Anaphylaxis Uncoded 04/05/21 07:25 ANTI PSYCHOTICS AdvReac Other Uncoded 04/05/21 07:25 PAPER TAPE AdvReac Rash Uncoded 04/05/21 07:25 Family History Mother Hypertension Father Hypertension Surgical History H/O hand surgery H/O knee surgery History of cholecystectomy History of left heart catheterization (06/23/19) Social History household members: none Smoking Status: Former smoker alcohol intake: never substance use type: does not use ROS ROS ED Constitutional Constitutional ED: Denies chills or fever(s) ENT ENT ED: Denies sore throat Cardiovascular Cardiovascular: Denies chest pain Respiratory/Chest Respiratory/Chest: Denies cough or dyspnea Gastrointestinal Gastrointestinal: Reports abdominal pain; Denies diarrhea, nausea or vomiting Genitourinary Genitourinary ED: Denies dysuria or hematuria Musculoskeletal Musculoskeletal: Reports back pain; Denies myalgias Integumentary Denies rash Neurologic Neurologic: Denies headache(s) Hematologic/Lymphatic Hematologic/Lymphatic: Denies easy bleeding or easy bruising EXAM Physical Exam Const Vital Signs: 07/10/21 21:51 07/10/21 22:01 Temperature 98.0 F Temperature Source Temporal Pulse Rate 99 Respiratory Rate 16 Respiratory Pattern Normal Blood Pressure 116/73 Blood Pressure Mean 87 Pulse Ox 95 Oxygen Delivery Method Room Air Positive well nourished, well developed and obese General Appearance ED: well developed Nutritional Appearance: obese Eyes PERRL and EOMs intact bilaterally Neck supple Resp normal respiratory effort and clear to auscultation bilaterally Cardio regular rate and regular rhythm Rate: other Other Details: Radial pulses are +2-4 bilaterally are equal and symmetric GI normal to inspection, nondistended, normoactive bowel sounds, non-tender, non- distended and no masses GI Narrative: No voluntary guarding or rigidity no pulsatile mass Auscultation: normoactive bowel sounds Palpation: soft Back/Spine Back/Spine Narrative: No bony deformity or step-off of the thoracic or lumbar spine no midline pain with palpation. No saddle anesthesia. Negative straight leg raise. No clonus or Babinski. Patellar reflexes are plus 1 out of 4 bilaterally. There is pain along the left paralumbar muscle belly that worsens with palpation and motion. Extremity normal to inspection Neuro oriented x3 and CN's II-XII intact bilaterally Sensorium / Orientation: alert Psych mental status grossly normal Skin no rashes or lesions noted Skin Narrative: No overlying soft tissue changes to suggest trauma or infection MDM MDM MDM Narrative Medical decision making narrative: Patient presented to the ER with stable vitals. She had left-sided back pain with no trauma but no signs or history concerning for cauda equina or epidural abscess. Patient did have concern for kidney stone and therefore elected perform basic laboratory studies and a noncontrast CT. the CT showed a stone within the kidney but not outside and labs showed just rare bacteria in the urine without white blood cells. Otherwise she has no leukocytosis or acute kidney injury. At this time I do not believe this is pyelonephritis based on the rare bacteria or the fact that she has a true UTI based on this week value in the urine. Patient will be covered with Valium as a muscle relaxer but is otherwise safe for discharge. Lab Data Attestation: I reviewed the patient's lab results. Labs: Laboratory Results - last 24 hr 07/10/21 07/10/21 07/10/21 22:18 22:22 22:22 WBC 9.7 RBC 4.04 L Hgb 13.2 Hct 39.1 MCV 96.8 MCH 32.7 H MCHC 33.8 RDW Std Deviation 49.0 H RDW Coeff of Lenora 13.7 Plt Count 241 MPV 10.1 Immature Gran % (Auto) 0.200 Neut % (Auto) 42.6 L Lymph % (Auto) 39.4 [place] % (Auto) 11.6 H Eos % (Auto) 5.4 H Baso % (Auto) 0.8 Absolute Neuts (auto) 4.1 Absolute Lymphs (auto) 3.82 Nucleated RBC % 0 Sodium 139 Potassium 4.4 Chloride 106 Carbon Dioxide 29.0 Anion Gap 4 L BUN 15 Creatinine 0.91 Estim Creat Clear Calc 49.40 Est GFR (MDRD) Af Amer 80 Est GFR (MDRD) Non-Af 66 BUN/Creatinine Ratio 16.6 Glucose 139 H Calcium 9.6 Urine Color Yellow Urine Clarity Clear Urine pH 6.0 Ur Specific [place] 1.020 Urine Protein Negative Urine Glucose (UA) Normal Urine Ketones Negative Urine Occult Blood 25 H Urine Nitrite Negative Urine Bilirubin Negative Urine Urobilinogen Normal Ur Leukocyte Esterase 100 H Urine RBC 0-5 SEEN Urine WBC 0-5 SEEN Ur Squamous Epith Cells 0-5 SEEN Urine Bacteria RARE Urine Mucus 0 SEEN Radiography Diagnostic Testing: Clinical Impression(s) from Imaging Studies Abdomen/Pelvis CT 07/10/21 22:25 IMPRESSION: 5 mm nonobstructing calyceal calculus at the lower pole left kidney. Electronically Signed: Chris Victoria MD at 22:54 EDT , Discharge Plan Triage Chief Complaint: Flank Pain ED Provider: Chris Valentine Dx/Rx/DC Orders Clinical Impression: Lumbosacral strain Instructions: Understanding Lumbosacral Strain Prescriptions: New diazepam [Valium] 2 mg tablet 2 mg PO TID PRN (Reason: muscle spasm) 5 Days Qty: 15 RF: 0 No Action albuterol sulfate 1 INHALER inhaler 2 puff inhalation Q6H PRN PRN (Reason: Shortness Of Breath) RF: 0 calcium carbonate-vitamin D3 1 EACH tablet 1 ea PO DAILY RF: 0 metoprolol succinate 25 MG tablet extended release 24 hr 25 mg PO DAILY RF: 0 divalproex 250 MG tablet 250 mg PO BIDCM RF: 0 topiramate 200 MG tablet 200 mg PO BID RF: 0 pantoprazole 40 MG tablet 40 mg PO BID RF: 0 lurasidone 40 MG tablet 1 tab PO DAILY RF: 0 duloxetine 30 MG capsule,delayed release(DR/EC) 30 mg PO DAILY RF: 0 metformin 500 mg tablet 500 mg PO DAILY RF: 0 ondansetron 4 mg tablet,disintegrating 4 mg PO Q8H PRN (Reason: nausea and vomiting) Qty: 10 RF: 0 Metamucil Fiber Singles 3.4 gram Powder In Packet 1 packet PO DAILY PRN PRN (Reason: Constipation) Qty: 0 RF: 0 hydroxyzine pamoate [Vistaril] 25 mg capsule 25 mg PO TID PRN (Reason: itching) Qty: 14 RF: 0 mirtazapine 30 mg Tablet,Disintegrating 30 mg PO QHS RF: 0 prazosin 1 mg Capsule 5 mg PO QHS RF: 0 alendronate [Fosamax] 70 mg Tablet 70 mg PO QWEEK RF: 0 pravastatin 80 mg Tablet 80 mg PO QHS RF: 0 furosemide [Lasix] 20 mg Tablet 20 mg PO DAILY RF: 0 methocarbamol 500 mg tablet 500 mg PO 4X/DAY PRN PRN (Reason: Muscle pain/spasm) 10 Days Qty: 40 RF: 0 Primary Care Provider: Care Physician,No Primary Referrals: Michael Newell MD [STAFF PHYSICIAN] - 1 Week if not improving Care Physician,No Primary [Primary Care Provider] - Disposition Disposition: Home, Self Care Discharge Date/Time: 07/11/21 00:09
== END 2021-07-11 00:09 | disposition home or self-care (01) ==
PROVIDERS: Emergency Provider Emergency Medicine; Visit Provider Emergency Medicine
DX: S39.012A Strain of muscle, fascia and tendon of lower back, initial encounter (principal); I25.10 Atherosclerotic heart disease of native coronary artery without angina pectoris; E66.9 Obesity, unspecified; Z99.81 Dependence on supplemental oxygen; Z86.73 Personal history of transient ischemic attack (TIA), and cerebral infarction without residual deficits; Z87.891 Personal history of nicotine dependence; X58.XXXA Exposure to other specified factors, initial encounter
CPT/HCPCS: 74176; 80048; 81001; 85025; 87086; 96374; 99285; J7040; A4216

== ENCOUNTER 2021-07-20 22:42 | Emergency (ER) | payer MEDICARE, MEDICAID, SELFPAY ==
[2021-07-20 22:43] VITALS: BP 132/87; PULSE 104; RESP 14; TEMP 36.7; O2SAT 97; BMI 45.9
--- NOTE | 2021-07-20 23:07 | EKG12_ITS ---
Test Reason : CP Blood Pressure : / mmHG Vent. Rate : 097 BPM Atrial Rate : 097 BPM P-R Int : 204 ms QRS Dur : 062 ms QT Int : 344 ms P-R-T Axes : 038 -14 009 degrees QTc Int : 436 ms Normal sinus rhythm Inferior infarct , age undetermined Abnormal ECG Confirmed by JANI ROJAS, NADIA ([id number]), technical writer and editor HERMAN DOWNS ([id number]) on 07/24/2021 10:36:17 AM Referred By: Confirmed By:NADIA GUNTER MD
--- NOTE | 2021-07-20 23:08 | EDS_ITS ---
HPI History of Present Illness Chief Complaint: Chest Pain Informant: patient Narrative Narrative: Brought in by EMS from home sudden chest aching bilateral arm pain 3 hours prior to arrival. Currently subsiding. Smoker's cough. History of COPD. History of diabetes. Reports has ran out of her Glucophage and her blood pressure medicine and her nasal spray for the past 2 days. She did call the pharmacy throughout the day states there are refills however they have not gotten to it. She was denying any increasing stress from this. However due to the onset of symptoms she called EMS. She is brought in for evaluation. Review of records had a heart cath May 2019 here with a nonobstructive coronaries. Stress test August 2020 that was normal. Similar symptoms in the past. Denies history of PE or DVT. Prior Similar Symptoms: Yes CVD Risk Factors: Positive for Hypertension, Diabetes and Smoking [facility] Medical History Anxiety Asthma Chronic pain Coronary artery disease Depression Former smoker GERD (gastroesophageal reflux disease) History of fracture of hand Hypertension Irregular heart beat Migraines On home oxygen therapy PTSD (post-traumatic stress disorder) Seizures Stroke/cerebrovascular accident Home Medications albuterol sulfate 2 puff INHALATION Q6H PRN PRN 02/20/18 [History Last Taken 06/21/19 18:00] calcium carbonate-vitamin D3 1 ea PO DAILY 06/13/19 [History Last Taken 06/19] metoprolol succinate 25 mg PO DAILY 07/08/19 [History Last Taken 07/21/19] divalproex 250 mg PO BIDCM 11/15/19 [History Last Taken Unknown] topiramate 200 mg PO BID 11/15/19 [History Last Taken Unknown] duloxetine 30 mg PO DAILY 05/27/20 [History Last Taken Unknown] lurasidone 1 tab PO DAILY 05/27/20 [History Last Taken Unknown] pantoprazole 40 mg PO BID 05/27/20 [History Last Taken Unknown] metformin 500 mg PO DAILY 09/02/20 [History Last Taken Unknown] ondansetron 4 mg PO Q8H PRN #10 tab 09/11/20 [Rx Last Taken Unknown] psyllium husk (aspartame) [Metamucil Fiber Singles] 1 packet PO DAILY PRN PRN #0 ea 09/19/20 [Rx Last Taken Unknown] hydroxyzine pamoate [Vistaril] 25 mg PO TID PRN #14 cap 12/05/20 [Rx Last Taken Unknown] alendronate [Fosamax] 70 mg PO QWEEK 02/18/21 [History Last Taken Unknown] furosemide [Lasix] 20 mg PO DAILY 02/18/21 [History Last Taken Unknown] mirtazapine 30 mg PO QHS 02/18/21 [History Last Taken Unknown] pravastatin 80 mg PO QHS 02/18/21 [History Last Taken Unknown] prazosin 5 mg PO QHS 02/18/21 [History Last Taken Unknown] methocarbamol 500 mg PO 4X/DAY PRN PRN 10 Days #40 tab 06/23/21 [Rx Last Taken Unknown] diazepam [Valium] 2 mg PO TID PRN 5 Days #15 tab 07/10/21 [Rx Last Taken Unknown] Allergy/AdvReac Type Severity Reaction Status Date / Time acetaminophen [From Tylenol] AdvReac Upset Verified 07/20/21 22:51 Stomach amoxicillin [From Augmentin] AdvReac Hives Verified 07/20/21 22:51 clavulanic acid AdvReac Hives Verified 07/20/21 22:51 [From Augmentin] ibuprofen [From Advil] AdvReac Nausea Verified 07/20/21 22:51 sulfamethoxazole AdvReac Vomiting Verified 07/20/21 22:51 [From Bactrim] sumatriptan [From Imitrex] AdvReac Vomiting Verified 07/20/21 22:51 sumatriptan succinate AdvReac Vomiting Verified 07/20/21 22:51 [From Imitrex] trimethoprim [From Bactrim] AdvReac Vomiting Verified 07/20/21 22:51 BEE STING Allergy Anaphylaxis Uncoded 07/20/21 22:51 ANTI PSYCHOTICS AdvReac Other Uncoded 07/20/21 22:51 PAPER TAPE AdvReac Rash Uncoded 07/20/21 22:51 Family History Mother Hypertension Father Hypertension Surgical History H/O hand surgery H/O knee surgery History of cholecystectomy History of left heart catheterization (02/25/20) Social History household members: none Smoking Status: Former smoker alcohol intake: never substance use type: does not use ROS ROS ED Constitutional Constitutional ED: Denies chills, fever(s) or sweats Eyes Eyes: Denies change in vision ENT ENT ED: Denies dysphagia or sore throat Cardiovascular Cardiovascular: Reports chest pain; Denies leg edema, palpitations or racing heartbeat Respiratory/Chest Respiratory/Chest: Reports cough; Denies dyspnea or dyspnea on exertion Gastrointestinal Gastrointestinal: Denies abdominal pain, diarrhea, nausea or vomiting Genitourinary Genitourinary ED: Denies dysuria, hematuria or urinary frequency Musculoskeletal Musculoskeletal: Denies back pain, extremity pain or neck pain Integumentary Denies rash or wounds Neurologic Neurologic: Denies headache(s), paresthesias or weakness EXAM Physical Exam Const Vital Signs: 07/20/21 22:43 Temperature 98.1 F Temperature Source Oral Pulse Rate 104 H Respiratory Rate 14 Blood Pressure 132/87 H Blood Pressure Mean 102 Pulse Ox 97 Oxygen Delivery Method Room Air Positive well nourished and well developed General Appearance ED: well developed and NAD HEENT Reports moist mucous membranes normocephalic and atraumatic Eyes PERRL, EOMs intact bilaterally and conjunctivae normal General Eye ED: Yes normal appearance of both eyes Neck no lymphadenopathy and supple General: Negative for tenderness Chest Wall Chest: Negative for tenderness Resp normal respiratory effort and normal air movement Effort and Inspection: symmetric chest movement; Negative for respiratory distress Cardio regular rate, regular rhythm and no murmurs Peripheral Pulses: pulses 2+ throughout GI normal to inspection, nondistended, normoactive bowel sounds and non-tender Palpation: Negative for guarding or rebound tenderness present Back/Spine no CVA tenderness and no thoracic nor lumbar tenderness Extremity normal to inspection General Extremety ED: Negative for edema or tenderness General Extremity: Negative for edema Neuro oriented x3 and no sensory deficits noted Sensorium / Orientation: awake and alert Skin no rashes or lesions noted and no wounds Heart Score History: Slightly/Non-Suspicious ECG: Normal Age: >45 - <65 years Risk Factors: >/= 3 Risk Factors or History of CAD Troponin: </= Normal Limit Score: 3 MDM MDM MDM Narrative Medical decision making narrative: EKG nonspecific T wave inversion leads III. Chest x-ray 1 view reviewed by myself and read by radiology shows no acute process. Cardiac work-up negative initial troponin less than 3. Per algorithm, ACS is ruled out. Reevaluation symptoms improved. Patient will follow-up with her PCP further testing as outpatient. Return precautions.. Patient has refills of her pharmacy for the medications. All questions were answered. Lab Data Attestation: I reviewed the patient's lab results. Labs: Laboratory Results - last 24 hr 07/20/21 07/20/21 22:58 22:58 WBC 6.8 RBC 4.03 L Hgb 12.8 Hct 37.7 MCV 93.5 MCH 31.8 MCHC 34.0 RDW Std Deviation 45.3 H RDW Coeff of Lenora 13.2 Plt Count 222 MPV 10.3 Immature Gran % (Auto) 0.600 Neut % (Auto) 58.1 Lymph % (Auto) 23.1 [place] % (Auto) 13.9 H Eos % (Auto) 3.1 Baso % (Auto) 1.2 H Absolute Neuts (auto) 3.9 Absolute Lymphs (auto) 1.56 Nucleated RBC % 0 Sodium 141 Potassium 3.5 Chloride 107 Carbon Dioxide 29.0 Anion Gap 5 BUN 16 Creatinine 0.85 Estim Creat Clear Calc 52.88 Est GFR (MDRD) Af Amer 86 Est GFR (MDRD) Non-Af 71 BUN/Creatinine Ratio 18.7 Glucose 128 H Calcium 8.9 Troponin I High Sens < 3 L Radiography Chest X-Ray - ED: 1 View and Read by ED Physician Diagnostic Testing: Clinical Impression(s) from Imaging Studies Chest X-Ray 07/20/21 23:10 IMPRESSION: Degenerative changes, as described above. No demonstrated acute cardiopulmonary process. Electronically Signed: Clint Toro DO at 23:34 EDT Reading Location ID and State: [address] [place] [address] Tel [phone], Service support , EKG Initial EKG: Attestation: I personally reviewed and interpreted this EKG as follows: Comments: Sinus rate of 97, no ST changes isolated T wave inversion leads III. Nonspecific. Discharge Plan Triage Chief Complaint: Chest Pain ED Provider: Ruben Marr Dx/Rx/DC Orders Clinical Impression: Chest pain Instructions: ED Chest Pain, Uncertain Cause Prescriptions: No Action albuterol sulfate 1 INHALER inhaler 2 puff inhalation Q6H PRN PRN (Reason: Shortness Of Breath) RF: 0 calcium carbonate-vitamin D3 1 EACH tablet 1 ea PO DAILY RF: 0 metoprolol succinate 25 MG tablet extended release 24 hr 25 mg PO DAILY RF: 0 divalproex 250 MG tablet 250 mg PO BIDCM RF: 0 topiramate 200 MG tablet 200 mg PO BID RF: 0 pantoprazole 40 MG tablet 40 mg PO BID RF: 0 lurasidone 40 MG tablet 1 tab PO DAILY RF: 0 duloxetine 30 MG capsule,delayed release(DR/EC) 30 mg PO DAILY RF: 0 metformin 500 mg tablet 500 mg PO DAILY RF: 0 ondansetron 4 mg tablet,disintegrating 4 mg PO Q8H PRN (Reason: nausea and vomiting) Qty: 10 RF: 0 Metamucil Fiber Singles 3.4 gram Powder In Packet 1 packet PO DAILY PRN PRN (Reason: Constipation) Qty: 0 RF: 0 hydroxyzine pamoate [Vistaril] 25 mg capsule 25 mg PO TID PRN (Reason: itching) Qty: 14 RF: 0 mirtazapine 30 mg Tablet,Disintegrating 30 mg PO QHS RF: 0 prazosin 1 mg Capsule 5 mg PO QHS RF: 0 alendronate [Fosamax] 70 mg Tablet 70 mg PO QWEEK RF: 0 pravastatin 80 mg Tablet 80 mg PO QHS RF: 0 furosemide [Lasix] 20 mg Tablet 20 mg PO DAILY RF: 0 methocarbamol 500 mg tablet 500 mg PO 4X/DAY PRN PRN (Reason: Muscle pain/spasm) 10 Days Qty: 40 RF: 0 diazepam [Valium] 2 mg tablet 2 mg PO TID PRN (Reason: muscle spasm) 5 Days Qty: 15 RF: 0 Primary Care Provider: Care Physician,No Primary Referrals: Care Physician,No Primary [Primary Care Provider] - Activity Restrictions/Additional Instructions: Cardiac work-up negative. Chest x-ray negative. Follow-up with your doctor in 3 days for reevaluation. Disposition Disposition: Home, Self Care
--- NOTE | 2021-07-20 23:10 | RAD_ITS ---
STUDY: X-RAY CHEST REASON FOR EXAM: Female, 65 years old. Chest pain. TECHNIQUE: Single AP portable view of the chest. COMPARISON: 02/22/2021. FINDINGS: The lungs are well-expanded. There is resolution of the infiltrate seen on the previous examination. No new mass or infiltrate. There is no demonstrated pleural abnormality. Normal size heart. Normal mediastinum and ita. Normal visualized pulmonary arteries. Normal visualized aortic arch and descending thoracic aorta. There are diffuse degenerative changes of the visualized thoracic spine. Normal visualized ribs, clavicles, and shoulders. There is no demonstrated abnormality of the visualized soft tissue structures of the upper abdomen. RAD/Chest 1 View (Portable) IMPRESSION: Degenerative changes, as described above. No demonstrated acute cardiopulmonary process. Electronically Signed: Clint Toro DO at 23:34 EDT ,
[2021-07-20] MEDS: Aspirin 81 MG TAB.CHEW 324 MG PO (23:12)
[2021-07-20 23:23] LABS: Absolute Lymphocyte Count 1.56 X10^3/uL (0.83-4.51); Absolute Neutrophil Count 3.9 X10^3/uL (2.0-7.7); Basophil# 0.08 X10^3/uL; Basophil% 1.2 % (0-1); Eosinophil# 0.21 X10^3/uL; Eosinophils% 3.1 % (0-5); Hematocrit 37.7 % (37-47); Hemoglobin 12.8 g/dL (12.0-15.0); Lymphocyte # 1.56 X10^3/ul (0.83-4.51); Lymphocyte % 23.1 % (19-41); Mean Corpuscular Hgb 31.8 pg (27.0-32.0); Mean Corpuscular Volume 93.5 fL (81-99); Mean Platelet Vol. 10.3 fl (6.2-12.0); Monocyte# 0.94 X10^3/uL; Monocyte% 13.9 % (0-10); NRBC Flagged by Analyzer 0 % (0-5); Neutrophil # 3.92 X10^3/uL (2.7-7.7); Neutrophil % 58.1 % (47-70); Platelet Count 222 K/mm3 (150-450); RBC Distribution Width CV 13.2 % (11.6-14.6); RBC Distribution Width SD 45.3 fl (35.1-43.9); Red Blood Count 4.03 M/mm3 (4.2-5.4); White Blood Count 6.8 K/mm3 (4.4-11.0)
[2021-07-20 23:32] LABS: Anion Gap 5 (5-15); BUN 16 mg/dL (7-18); BUN/Creat Ratio 18.7 RATIO (10-20); Calcium,Total 8.9 mg/dL (8.5-10.1); Chloride 107 mmol/L (98-107); Creatinine, Serum 0.85 mg/dL (0.55-1.02); EST Glomerular Filtration Rate 71 mL/min (>60); Est Glom Filt Rate - Afr Amer 86 mL/min (>60); Estimated Creatinine Clearance 52.88 ml/min; Glucose 128 mg/dL (74-106); Potassium 3.5 mmol/L (3.5-5.1); Sodium Level 141 mmol/L (136-145); Troponin-I HS < 3 pg/mL (3.0-54.0)
[2021-07-20 23:52] VITALS: BP 103/82; PULSE 100; RESP 16; O2SAT 98
--- NOTE | 2021-07-21 00:13 | ED.RN ---
PT WAS DISCHARGED AND WAS MADE AWARE THAT [facility] WAS ON THEIR WAY IN 30 MINUTES TO PICK HER . WAS ALERTED BY CHARGE NURSE THAT THE PT BECAME ANGRY AFTER SHE GOT DRESSED AND THREW THE HOSPITAL PHONE AND HER DISCHARGE PAPERS ON THE FLOOR AND STORMED OUT.
--- NOTE | 2021-07-21 00:16 | ED.RN ---
ELENA DOMINGUEZ ATTEMPTED TO GIVE THE PT HER DISCHARGE PAPERS IN THE [facility] ARE[facility] AND PT WOULD NOT TAKE THEM.
== END 2021-07-21 00:07 | disposition home or self-care (01) ==
PROVIDERS: Emergency Provider Emergency Medicine; Visit Provider Emergency Medicine
DX: R07.9 Chest pain, unspecified (principal); J44.9 Chronic obstructive pulmonary disease, unspecified; E11.9 Type 2 diabetes mellitus without complications; I25.10 Atherosclerotic heart disease of native coronary artery without angina pectoris; I10 Essential (primary) hypertension; K21.9 Gastro-esophageal reflux disease without esophagitis; Z79.84 Long term (current) use of oral hypoglycemic drugs; Z87.891 Personal history of nicotine dependence; Z86.73 Personal history of transient ischemic attack (TIA), and cerebral infarction without residual deficits; Z79.899 Other long term (current) drug therapy
CPT/HCPCS: 71045; 80048; 84484; 85025; 93005; 99285

== ENCOUNTER 2021-07-26 05:34 | Emergency (ER) | payer MEDICARE, MEDICAID, SELFPAY ==
[2021-07-26 05:35] VITALS: BP 120/55; BP 122/58; PULSE 76; PULSE 79; RESP 15; RESP 20; TEMP 36.6; O2SAT 98; BMI 47.2
--- NOTE | 2021-07-26 05:43 | EKG12_ITS ---
Test Reason : CP Blood Pressure : / mmHG Vent. Rate : 076 BPM Atrial Rate : 076 BPM P-R Int : 210 ms QRS Dur : 072 ms QT Int : 392 ms P-R-T Axes : 046 -09 019 degrees QTc Int : 441 ms Sinus rhythm with 1st degree A-V block Otherwise normal ECG Confirmed by ALBINO ROJAS, MOHAN ([id number]), deputy editor in chief HERMAN DOWNS ([id number]) on 07/28/2021 2:11:41 PM Referred By: ELGIN Confirmed By:FIONA POSADA MD
--- NOTE | 2021-07-26 05:49 | RAD_ITS ---
EXAM: XR CHEST, 1 VIEW CLINICAL INDICATION: chest pain TECHNIQUE: Frontal view of the chest. This report was created using [email or web address] report generation technology. COMPARISON: Previous chest radiographs of 07/20/2021 and 02/22/2021. FINDINGS: LUNGS AND PLEURAL SPACES: No acute pulmonary infiltrates are identified. HEART: Heart size is upper normal, with normal pulmonary vasculature. MEDIASTINUM: Thoracic aorta remains mildly elongated. No mediastinal widening. BONES/JOINTS: Cervical and thoracic degenerative changes. No acute abnormality. SOFT TISSUES: Unremarkable. TUBES, LINES AND DEVICES: A small linear metallic density now overlies the left suprahilar region, and most likely lies on the skin surface. laboratory monitor leads overlie the chest wall. OTHER FINDINGS: Large body habitus. RAD/Chest 1 View (Portable) IMPRESSION: No significant interval change or acute process. Electronically Signed: Ethan Marley MD at 6:48 EDT ,
--- NOTE | 2021-07-26 05:50 | ED.VIS.CHEST ---
HPI History of Present Illness Chief Complaint: Chest Pain Informant: patient Onset/Context/Timing Onset: Hours (3) Activity at onset: sudden and sleep Timing: Continuous Quality: Positive for Pain Location: Right Chest and Left Chest Current Severity: Moderate Maximum Severity: Moderate Worsened By: Nothing; Not Worsened By Breathing and Coughing Relieved By: Nothing Associated Symptoms: Positive for Cough; Negative for Nausea, Vomiting, Diaphoresis, Dyspnea, Fever, Lightheadedness and Palpitations Narrative Narrative: Patient presenting for chest discomfort at work around her sleep for the past 3 hours or more and has been constant. She states she has this pain almost every day. She called her doctor's office and the nurse on-call directed her here to the emergency department. She was seen here less than 1 week ago, she states the pain is the same as it was then. It is on the right side sometimes on the left now, and she has discomfort in both of her arms. She has a hard time describing the discomfort. She denies any dyspnea associated with it but states she has had chronic cough that has been a little worse in the past week along with her COPD, using her inhaler occasionally does not feel like she needs one right now. [facility] Medical History Anxiety Asthma Chronic pain Coronary artery disease Depression Former smoker GERD (gastroesophageal reflux disease) History of fracture of hand Hypertension Irregular heart beat Migraines On home oxygen therapy PTSD (post-traumatic stress disorder) Seizures Stroke/cerebrovascular accident Home Medications albuterol sulfate 2 puff INHALATION Q6H PRN PRN 02/20/18 [History Last Taken 06/21/19 18:00] calcium carbonate-vitamin D3 1 ea PO DAILY 06/13/19 [History Last Taken 06/19/19] metoprolol succinate 25 mg PO DAILY 07/08/19 [History Last Taken 07/21/19] divalproex 250 mg PO BIDCM 11/15/19 [History Last Taken Unknown] topiramate 200 mg PO BID 11/15/19 [History Last Taken Unknown] duloxetine 30 mg PO DAILY 05/27/20 [History Last Taken Unknown] lurasidone 1 tab PO DAILY 05/27/20 [History Last Taken Unknown] pantoprazole 40 mg PO BID 05/27/20 [History Last Taken Unknown] metformin 500 mg PO DAILY 09/02/20 [History Last Taken Unknown] ondansetron 4 mg PO Q8H PRN #10 tab 09/11/20 [Rx Last Taken Unknown] psyllium husk (aspartame) [Metamucil Fiber Singles] 1 packet PO DAILY PRN PRN #0 ea 09/19/20 [Rx Last Taken Unknown] hydroxyzine pamoate [Vistaril] 25 mg PO TID PRN #14 cap 12/05/20 [Rx Last Taken Unknown] alendronate [Fosamax] 70 mg PO QWEEK 02/18/21 [History Last Taken Unknown] furosemide [Lasix] 20 mg PO DAILY 02/18/21 [History Last Taken Unknown] mirtazapine 30 mg PO QHS 02/18/21 [History Last Taken Unknown] pravastatin 80 mg PO QHS 02/18/21 [History Last Taken Unknown] prazosin 5 mg PO QHS 02/18/21 [History Last Taken Unknown] methocarbamol 500 mg PO 4X/DAY PRN PRN 10 Days #40 tab 06/23/21 [Rx Last Taken Unknown] diazepam [Valium] 2 mg PO TID PRN 5 Days #15 tab 07/10/21 [Rx Last Taken Unknown] Allergy/AdvReac Type Severity Reaction Status Date / Time acetaminophen [From Tylenol] AdvReac Upset Verified 07/20/21 22:51 Stomach amoxicillin [From Augmentin] AdvReac Hives Verified 07/20/21 22:51 clavulanic acid AdvReac Hives Verified 07/20/21 22:51 [From Augmentin] ibuprofen [From Advil] AdvReac Nausea Verified 07/20/21 22:51 sulfamethoxazole AdvReac Vomiting Verified 07/20/21 22:51 [From Bactrim] sumatriptan [From Imitrex] AdvReac Vomiting Verified 07/20/21 22:51 sumatriptan succinate AdvReac Vomiting Verified 07/20/21 22:51 [From Imitrex] trimethoprim [From Bactrim] AdvReac Vomiting Verified 07/20/21 22:51 BEE STING Allergy Anaphylaxis Uncoded 07/20/21 22:51 ANTI PSYCHOTICS AdvReac Other Uncoded 07/20/21 22:51 PAPER TAPE AdvReac Rash Uncoded 07/20/21 22:51 Family History Mother Hypertension Father Hypertension Surgical History H/O hand surgery H/O knee surgery History of cholecystectomy History of left heart catheterization (06/23/19) Social History household members: none Smoking Status: Former smoker alcohol intake: never substance use type: does not use ROS ROS ED Constitutional Constitutional ED: Denies chills or fever(s) Eyes Eyes: Denies change in vision or diplopia ENT ENT ED: Denies rhinorrhea or sore throat Cardiovascular Cardiovascular: Reports as per HPI and chest pain; Denies palpitations Respiratory/Chest Respiratory/Chest: Reports cough; Denies dyspnea Gastrointestinal Gastrointestinal: Denies abdominal pain, diarrhea, nausea or vomiting Genitourinary Genitourinary ED: Denies dysuria or hematuria Musculoskeletal Musculoskeletal: Denies back pain or neck pain Integumentary Denies abscess or rash Neurologic Neurologic: Denies headache(s), paresthesias or weakness Psychiatric Psychiatric: Denies anxiety or suicidal thoughts EXAM Physical Exam Const Vital Signs: 07/26/21 05:35 07/26/21 06:28 Temperature 97.8 F Temperature Source Oral Pulse Rate 76 69 Respiratory Rate 20 H 18 Blood Pressure 122/58 H 110/57 L Blood Pressure Mean 79 74 Pulse Ox 98 98 Oxygen Delivery Method Room Air Room Air Positive well nourished and well developed General Appearance ED: well developed and NAD HEENT Reports moist mucous membranes normocephalic and atraumatic Eyes PERRL and EOMs intact bilaterally Neck full ROM and supple Chest Wall inspection of chest normal and palpation of chest normal Chest: Negative for tenderness Resp normal respiratory effort and clear to auscultation bilaterally Cardio regular rate, regular rhythm and no murmurs Rate: Negative for tachycardic GI non-tender and non-distended Auscultation: normoactive bowel sounds Palpation: soft Back/Spine no CVA tenderness General Back: other FROM Extremity normal to inspection and no calf tenderness General Extremety ED: Yes edema; Negative for pulses abnormal or tenderness General Extremity: edema bilateral lower extremity Details: mild (symmetric); Negative for pulses abnormal Neuro oriented x3, CN's II-XII intact bilaterally and no sensory deficits noted Sensorium / Orientation: awake and alert Motor Exam: strength 5/5 throughout Psych cooperative, speech normal, activity/motor behavior normal and denies suicidal ideation Mood & Affect: anxious Skin no rashes or lesions noted and no wounds Heart Score History: Slightly/Non-Suspicious ECG: Normal Age: >45 - <65 years Risk Factors: >/= 3 Risk Factors or History of CAD Troponin: </= Normal Limit Score: 3 MDM MDM MDM Narrative Medical decision making narrative: While awaiting work-up which returned unremarkable except for mild prerenal azotemia, patient was given a GI cocktail. She states that her discomfort transiently improved/resolved, and then returned. Unknown if improvement was due to the medication she was given or not. She will be offered a dose of Toradol for her pain prior to discharge. She had no telemetry events or dysrhythmias, nor ectopy, while on telemetry here during her ED visit. She was reassured that as it was last week, her work-up is negative for acute coronary syndrome. Her symptoms are not consistent with pulmonary embolus and she has no tachycardia although she is continuing to take her low-dose beta-monica. The rest of her vital signs are indeed normal, her pulse ox is 98% on room air and she does not have symptoms or findings of a true COPD exacerbation. At this time as I discussed with her it is safe for her to be discharged home and follow-up with her doctor. Lab Data Attestation: I reviewed the patient's lab results. Labs: Laboratory Results - last 24 hr 07/26/21 07/26/21 05:57 05:57 WBC 7.3 RBC 3.83 L Hgb 12.4 Hct 36.6 L MCV 95.6 MCH 32.4 H MCHC 33.9 RDW Std Deviation 47.8 H RDW Coeff of Lenora 13.6 Plt Count 230 MPV 10.3 Immature Gran % (Auto) 0.300 Neut % (Auto) 38.6 L Lymph % (Auto) 39.3 [place] % (Auto) 16.4 H Eos % (Auto) 4.4 Baso % (Auto) 1.0 Absolute Neuts (auto) 2.8 Absolute Lymphs (auto) 2.85 Nucleated RBC % 0 Sodium 142 Potassium 3.7 Chloride 109 H Carbon Dioxide 30.0 Anion Gap 3 L BUN 19 H Creatinine 0.87 Estim Creat Clear Calc 51.67 Est GFR (MDRD) Af Amer 84 Est GFR (MDRD) Non-Af 69 BUN/Creatinine Ratio 21.8 H Glucose 147 H Calcium 9.1 Troponin I High Sens < 3 L Radiography Chest X-Ray - ED: 1 View, Read by ED Physician, No Acute Disease and Chronic Changes (Unchanged compared with prior chest x-ray) Rhythm Strip Rhythm Strip: Sinus Rhythm Rate: 75 Ectopy: None EKG Initial EKG: Attestation: I personally reviewed and interpreted this EKG as follows: Interpretation: Sinus Rhythm, No Acute Injury Pattern and AV Block (1st deg) Comments: Otherwise normal EKG Prior EKG tracings: available for review Prior: Unchanged Discharge Plan Triage Chief Complaint: Chest Pain ED Provider: Arnel Burrell Dx/Rx/DC Orders Clinical Impression: Atypical chest pain, COPD (chronic obstructive pulmonary disease), Chronic cough Instructions: ED Chest Pain, Noncardiac Prescriptions: No Action albuterol sulfate 1 INHALER inhaler 2 puff inhalation Q6H PRN PRN (Reason: Shortness Of Breath) RF: 0 calcium carbonate-vitamin D3 1 EACH tablet 1 ea PO DAILY RF: 0 metoprolol succinate 25 MG tablet extended release 24 hr 25 mg PO DAILY RF: 0 divalproex 250 MG tablet 250 mg PO BIDCM RF: 0 topiramate 200 MG tablet 200 mg PO BID RF: 0 pantoprazole 40 MG tablet 40 mg PO BID RF: 0 lurasidone 40 MG tablet 1 tab PO DAILY RF: 0 duloxetine 30 MG capsule,delayed release(DR/EC) 30 mg PO DAILY RF: 0 metformin 500 mg tablet 500 mg PO DAILY RF: 0 ondansetron 4 mg tablet,disintegrating 4 mg PO Q8H PRN (Reason: nausea and vomiting) Qty: 10 RF: 0 Metamucil Fiber Singles 3.4 gram Powder In Packet 1 packet PO DAILY PRN PRN (Reason: Constipation) Qty: 0 RF: 0 hydroxyzine pamoate [Vistaril] 25 mg capsule 25 mg PO TID PRN (Reason: itching) Qty: 14 RF: 0 mirtazapine 30 mg Tablet,Disintegrating 30 mg PO QHS RF: 0 prazosin 1 mg Capsule 5 mg PO QHS RF: 0 alendronate [Fosamax] 70 mg Tablet 70 mg PO QWEEK RF: 0 pravastatin 80 mg Tablet 80 mg PO QHS RF: 0 furosemide [Lasix] 20 mg Tablet 20 mg PO DAILY RF: 0 methocarbamol 500 mg tablet 500 mg PO 4X/DAY PRN PRN (Reason: Muscle pain/spasm) 10 Days Qty: 40 RF: 0 diazepam [Valium] 2 mg tablet 2 mg PO TID PRN (Reason: muscle spasm) 5 Days Qty: 15 RF: 0 Primary Care Provider: Care Physician,No Primary Referrals: Care Physician,No Primary [Primary Care Provider] - Doctor,Your [STAFF PHYSICIAN] - As soon as possible Disposition Disposition: Home, Self Care
[2021-07-26] MEDS: Mag Hydrox/Al Hydrox/Simeth 30 ML UDC PO (05:56)
[2021-07-26 06:03] LABS: Absolute Lymphocyte Count 2.85 X10^3/uL (0.83-4.51); Absolute Neutrophil Count 2.8 X10^3/uL (2.0-7.7); Basophil# 0.07 X10^3/uL; Eosinophil# 0.32 X10^3/uL; Eosinophils% 4.4 % (0-5); Hematocrit 36.6 % (37-47); Hemoglobin 12.4 g/dL (12.0-15.0); Lymphocyte # 2.85 X10^3/ul (0.83-4.51); Lymphocyte % 39.3 % (19-41); Mean Corp Hgb Conc 33.9 g/dL (32-36); Mean Corpuscular Hgb 32.4 pg (27.0-32.0); Mean Corpuscular Volume 95.6 fL (81-99); Mean Platelet Vol. 10.3 fl (6.2-12.0); Monocyte# 1.19 X10^3/uL; Monocyte% 16.4 % (0-10); NRBC Flagged by Analyzer 0 % (0-5); Neutrophil % 38.6 % (47-70); Platelet Count 230 K/mm3 (150-450); RBC Distribution Width CV 13.6 % (11.6-14.6); RBC Distribution Width SD 47.8 fl (35.1-43.9); Red Blood Count 3.83 M/mm3 (4.2-5.4); White Blood Count 7.3 K/mm3 (4.4-11.0)
[2021-07-26 06:28] VITALS: BP 110/57; PULSE 69; RESP 18; O2SAT 98
[2021-07-26 06:29] LABS: Anion Gap 3 (5-15); BUN 19 mg/dL (7-18); BUN/Creat Ratio 21.8 RATIO (10-20); Calcium,Total 9.1 mg/dL (8.5-10.1); Chloride 109 mmol/L (98-107); Creatinine, Serum 0.87 mg/dL (0.55-1.02); EST Glomerular Filtration Rate 69 mL/min (>60); Est Glom Filt Rate - Afr Amer 84 mL/min (>60); Estimated Creatinine Clearance 51.67 ml/min; Glucose 147 mg/dL (74-106); Potassium 3.7 mmol/L (3.5-5.1); Sodium Level 142 mmol/L (136-145); Troponin-I HS < 3 pg/mL (3.0-54.0)
[2021-07-26 06:47] VITALS: BP 110/57; PULSE 78; RESP 16; O2SAT 98
== END 2021-07-26 06:51 | disposition home or self-care (01) ==
PROVIDERS: Emergency Provider Emergency Medicine; Visit Provider Emergency Medicine
DX: R07.89 Other chest pain (principal); J44.9 Chronic obstructive pulmonary disease, unspecified; I25.10 Atherosclerotic heart disease of native coronary artery without angina pectoris; R05.3 Chronic cough; Z99.81 Dependence on supplemental oxygen; Z86.73 Personal history of transient ischemic attack (TIA), and cerebral infarction without residual deficits; Z87.891 Personal history of nicotine dependence
CPT/HCPCS: 71045; 80048; 84484; 85025; 93005; 99285; A4216

== ENCOUNTER 2021-08-01 20:02 | Emergency (ER) | payer MEDICARE, MEDICAID, SELFPAY ==
[2021-08-01 20:04] VITALS: BP 144/120; PULSE 85; RESP 18; TEMP 36.6; O2SAT 99; BMI 48.4
--- NOTE | 2021-08-01 20:57 | EDS_ITS ---
HPI History of Present Illness Chief Complaint: Other, Pain/Inj Detail of Chief Complaint: Neck and upper back pain after mammogram Informant: patient Onset/Context/Timing Onset: Today Injury: twisting Timing: Continuous Quality: Sharp and Aching Location: - (Neck and upper back.) Current Severity: Mild Maximum Severity: Moderate Worsened by: improves with Movement Relieved by: Nothing Associated Symptoms Associated Symptoms: Negative for Numbness, Tingling, Radiation to Right Leg, Radiation to Left Leg, Fever, Abdominal Pain, Dysuria, Unable to Ambulate, Un able to Transfer, Urinary Retention, Urinary Incontinence, Constipation and Fecal Incontinence Narrative Narrative: 65-year-old female history of diabetes and mitral valve prolapse. States she has typically limited range of motion of her neck and shoulders. She was at the [facility] today having a mammogram done and states when they were pulling and moving her moving her neck from side to side she started having neck and upper back pain. She denies any prior neck surgery. She denies any falls or other trauma. Says it is just sore now along with her upper back. She denies any numbness, tingling or weakness in her arms or legs. Prior similar symptoms: No Recent Illness/Hospitalization: No PFSH PFSH Medical History Anxiety Asthma Chronic pain Coronary artery disease Depression Former smoker GERD (gastroesophageal reflux disease) History of fracture of hand Hypertension Irregular heart beat Migraines On home oxygen therapy PTSD (post-traumatic stress disorder) Seizures Stroke/cerebrovascular accident Home Medications albuterol sulfate 2 puff INHALATION Q6H PRN PRN 02/20/18 [History Last Taken 06/21/19 18:00] calcium carbonate-vitamin D3 1 ea PO DAILY 06/13/19 [History Last Taken 06/19/19] metoprolol succinate 25 mg PO DAILY 07/08/19 [History Last Taken 07/21/19] divalproex 250 mg PO BIDCM 11/15/19 [History Last Taken Unknown] topiramate 200 mg PO BID 11/15/19 [History Last Taken Unknown] duloxetine 30 mg PO DAILY 05/27/20 [History Last Taken Unknown] lurasidone 1 tab PO DAILY 05/27/20 [History Last Taken Unknown] pantoprazole 40 mg PO BID 05/27/20 [History Last Taken Unknown] metformin 500 mg PO DAILY 09/02/20 [History Last Taken Unknown] ondansetron 4 mg PO Q8H PRN #10 tab 09/11/20 [Rx Last Taken Unknown] psyllium husk (aspartame) [Metamucil Fiber Singles] 1 packet PO DAILY PRN PRN #0 ea 09/19/20 [Rx Last Taken Unknown] hydroxyzine pamoate [Vistaril] 25 mg PO TID PRN #14 cap 12/05/20 [Rx Last Taken Unknown] alendronate [Fosamax] 70 mg PO QWEEK 02/18/21 [History Last Taken Unknown] furosemide [Lasix] 20 mg PO DAILY 02/18/21 [History Last Taken Unknown] mirtazapine 30 mg PO QHS 02/18/21 [History Last Taken Unknown] pravastatin 80 mg PO QHS 02/18/21 [History Last Taken Unknown] prazosin 5 mg PO QHS 02/18/21 [History Last Taken Unknown] methocarbamol 500 mg PO 4X/DAY PRN PRN 10 Days #40 tab 06/23/21 [Rx Last Taken Unknown] diazepam [Valium] 2 mg PO TID PRN 5 Days #15 tab 07/10/21 [Rx Last Taken Unknown] Allergy/AdvReac Type Severity Reaction Status Date / Time acetaminophen [From Tylenol] AdvReac Upset Verified 08/01/21 20:04 Stomach amoxicillin [From Augmentin] AdvReac Hives Verified 08/01/21 20:04 clavulanic acid AdvReac Hives Verified 08/01/21 20:04 [From Augmentin] ibuprofen [From Advil] AdvReac Nausea Verified 08/01/21 20:04 sulfamethoxazole AdvReac Vomiting Verified 08/01/21 20:04 [From Bactrim] sumatriptan [From Imitrex] AdvReac Vomiting Verified 08/01/21 20:04 sumatriptan succinate AdvReac Vomiting Verified 08/01/21 20:04 [From Imitrex] trimethoprim [From Bactrim] AdvReac Vomiting Verified 08/01/21 20:04 BEE STING Allergy Anaphylaxis Uncoded 08/01/21 20:04 ANTI PSYCHOTICS AdvReac Other Uncoded 08/01/21 20:04 PAPER TAPE AdvReac Rash Uncoded 08/01/21 20:04 Family History Mother Hypertension Father Hypertension Surgical History H/O hand surgery H/O knee surgery History of cholecystectomy History of left heart catheterization (06/23/19) Social History household members: none Smoking Status: Former smoker alcohol intake: never substance use type: does not use ROS ROS ED ROS Narrative Denies recent illness. Review of Systems ROS Unobtainable: Denies due to encephalopathy Constitutional Constitutional ED: Denies fever(s) Eyes Eyes: Denies change in vision ENT ENT ED: Denies ear pain Cardiovascular Cardiovascular: Denies chest pain Respiratory/Chest Respiratory/Chest: Denies dyspnea Gastrointestinal Gastrointestinal: Denies abdominal pain Genitourinary Genitourinary ED: Denies dysuria Musculoskeletal Musculoskeletal: Reports back pain and neck pain; Denies myalgias Integumentary Denies rash Neurologic Neurologic: Denies headache(s) Psychiatric Psychiatric: Denies depression Endocrine Endocrinology: Denies polyuria Hematologic/Lymphatic Hematologic/Lymphatic: Denies easy bruising Allergic/Immunologic Allergic/Immunologic ED: Denies urticaria EXAM Physical Exam Narrative Exam Narrative: 65-year-old female sitting upright in a wheelchair. Vital signs are stable. Afebrile. Initial pressures elevated 144/120 that will be rechecked. H EENT exam unremarkable. Neck she has paracervical soft tissue tenderness in her upper back and shoulders. Consistent with myofascial strain. Trachea midline. Lungs are clear. Heart regular rhythm. Chest wall nontender. Abdomen soft nontender. She is moving all 4 extremities. 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 Dorsi and plantar flexion intact. She has normal motor strength and sensation in both upper and lower extremities. Const Vital Signs: 08/01/21 20:04 Temperature 97.8 F Temperature Source Temporal Pulse Rate 85 Respiratory Rate 18 Blood Pressure 144/120 H Blood Pressure Mean 128 Pulse Ox 99 Oxygen Delivery Method Room Air Positive well nourished, well developed and obese; Negative for cachectic, contractures or unkempt General Appearance ED: well developed and NAD; Negative for unkempt, cachectic, contractures or pallor Nutritional Appearance: obese; Negative for cachectic HEENT Reports moist mucous membranes; Denies dry mucous membranes Negative for trauma or tenderness Mouth ED: No dry mucous membranes Mouth: No dry mucous membranes Eyes PERRL and EOMs intact bilaterally Neck no lymphadenopathy, supple and no JVD Neck Narrative: Soft tissue tenderness to her neck and upper back. General: tenderness Resp normal respiratory effort and clear to auscultation bilaterally Effort and Inspection: Negative for pain with movement or other Auscultation: Negative for rhonchi Cardio regular rate, regular rhythm, S1 normal heart sound, S2 normal heart sound and no murmurs GI normal to inspection, nondistended, normoactive bowel sounds, soft to palpation, non-tender, non-distended and no masses Palpation: Negative for tender, guarding or rebound tenderness present Back/Spine Negative for normal to inspection Back/Spine Narrative: Paracervical and upper shoulder and back soft tissue tenderness. Cervical Spine: paracervical muscle tenderness Extremity normal to inspection General Extremety ED: Negative for edema or tenderness General Extremity: Negative for edema Neuro oriented x3 Sensorium / Orientation: alert; Negative for confused, lethargic or stuporous Motor Exam: strength 5/5 throughout Psych mental status grossly normal Appearance: Negative for unkempt Mood & Affect: Negative for depressed or tearful Skin no rashes or lesions noted and no wounds General Skin Exam: Negative for jaundice or pallor MDM MDM MDM Narrative Medical decision making narrative: 65-year-old female complaining neck and upper back pain after mammogram. Exam is consistent with myofascial strain. There is no significant trauma or falls. She does not need any imaging. She will be given 1 Crane and discharged home. Tylenol Motrin for pain. Hot shower, warm bath and massage. Follow-up if not improving. Discharge Plan Triage Chief Complaint: Other, Pain/Inj ED Provider: Tano Rangel Dx/Rx/DC Orders Clinical Impression: Neck muscle strain, History of diabetes mellitus Instructions: ED Neck Sprain or Strain Prescriptions: No Action albuterol sulfate 1 INHALER inhaler 2 puff inhalation Q6H PRN PRN (Reason: Shortness Of Breath) RF: 0 calcium carbonate-vitamin D3 1 EACH tablet 1 ea PO DAILY RF: 0 metoprolol succinate 25 MG tablet extended release 24 hr 25 mg PO DAILY RF: 0 divalproex 250 MG tablet 250 mg PO BIDCM RF: 0 topiramate 200 MG tablet 200 mg PO BID RF: 0 pantoprazole 40 MG tablet 40 mg PO BID RF: 0 lurasidone 40 MG tablet 1 tab PO DAILY RF: 0 duloxetine 30 MG capsule,delayed release(DR/EC) 30 mg PO DAILY RF: 0 metformin 500 mg tablet 500 mg PO DAILY RF: 0 ondansetron 4 mg tablet,disintegrating 4 mg PO Q8H PRN (Reason: nausea and vomiting) Qty: 10 RF: 0 Metamucil Fiber Singles 3.4 gram Powder In Packet 1 packet PO DAILY PRN PRN (Reason: Constipation) Qty: 0 RF: 0 hydroxyzine pamoate [Vistaril] 25 mg capsule 25 mg PO TID PRN (Reason: itching) Qty: 14 RF: 0 mirtazapine 30 mg Tablet,Disintegrating 30 mg PO QHS RF: 0 prazosin 1 mg Capsule 5 mg PO QHS RF: 0 alendronate [Fosamax] 70 mg Tablet 70 mg PO QWEEK RF: 0 pravastatin 80 mg Tablet 80 mg PO QHS RF: 0 furosemide [Lasix] 20 mg Tablet 20 mg PO DAILY RF: 0 methocarbamol 500 mg tablet 500 mg PO 4X/DAY PRN PRN (Reason: Muscle pain/spasm) 10 Days Qty: 40 RF: 0 diazepam [Valium] 2 mg tablet 2 mg PO TID PRN (Reason: muscle spasm) 5 Days Qty: 15 RF: 0 Primary Care Provider: Justino Escoto Referrals: Justino Escoto MD [Primary Care Provider] - 1 Week if not improving Activity Restrictions/Additional Instructions: Loo, warm bath and massage. You have strained of your neck and back muscles. Motrin and Tylenol for pain. Follow-up with your doctor if not improving. Disposition Disposition: Home, Self Care
[2021-08-01] MEDS: HYDROcodone Bitartrate/Apap 5/325 Tablet PO (21:12)
== END 2021-08-01 21:23 | disposition home or self-care (01) ==
PROVIDERS: Emergency Provider Emergency Medicine; PCP Family Medicine; Visit Provider Emergency Medicine
DX: S16.1XXA Strain of muscle, fascia and tendon at neck level, initial encounter (principal); I25.10 Atherosclerotic heart disease of native coronary artery without angina pectoris; E66.9 Obesity, unspecified; Z87.891 Personal history of nicotine dependence; X58.XXXA Exposure to other specified factors, initial encounter
CPT/HCPCS: 99283

== ENCOUNTER 2021-08-13 02:46 | Emergency (ER) | payer MEDICARE, MEDICAID, SELFPAY ==
[2021-08-13 02:47] VITALS: BP 140/87; PULSE 92; RESP 15; TEMP 36.6; O2SAT 99; BMI 30.2
--- NOTE | 2021-08-13 02:57 | ED.VIS.GI ---
HPI HPI - GI History of Present Illness Chief Complaint: Other, Pain/Inj Informant: patient and EMS Abdominal Pain/Flank Pain Onset: - (this past day) Context: Gradual Onset Timing: Continuous Quality: Aching Location: Left Flank (and radiating into left low back) Current Severity: Severe Maximum Severity: Severe Worsened by: Movement Relieved by: Nothing Nausea/Vomiting/Emesis GI Symptom: Positive for Nausea (couple times); Negative for Vomiting Diarrhea/Melena/Hematochezia GI Symptom: Negative for Diarrhea, Melena and Hematochezia Associated Symptoms Associated Symptoms: Negative for Dysuria, Frequency and Hematuria Narrative Narrative: Patient states she has been having left flank/lower quadrant/back pain the day or so. She confusingly states that her bowels are out of whack mentioning that at times they are loose but now they are constipated, and then states they are locked up. She usually has bowel movement every day and she has not had one in 2 days. She denies any fevers or chills. However she also keeps saying that she has some type of hernia and points to the left upper quadrant and states that her PCP sent her to some [facility] in [place] and was post to have it repaired but then she had a stroke and could not have it repaired, and she thinks it might be related. She does not know what kind of hernia it is, and I see no records regarding anything like this in our system. [facility] Medical History Anxiety Asthma Chronic pain Coronary artery disease Depression Former smoker GERD (gastroesophageal reflux disease) History of fracture of hand Hypertension Irregular heart beat Migraines On home oxygen therapy PTSD (post-traumatic stress disorder) Seizures Stroke/cerebrovascular accident Home Medications albuterol sulfate 2 puff INHALATION Q6H PRN PRN 02/20/18 [History Last Taken 06/21/19 18:00] calcium carbonate-vitamin D3 1 ea PO DAILY 06/13/19 [History Last Taken 06/19/19] metoprolol succinate 25 mg PO DAILY 07/08/19 [History Last Taken 07/21/19] divalproex 250 mg PO BIDCM 11/15/19 [History Last Taken Unknown] topiramate 200 mg PO BID 11/15/19 [History Last Taken Unknown] duloxetine 30 mg PO DAILY 05/27/20 [History Last Taken Unknown] lurasidone 1 tab PO DAILY 05/27/20 [History Last Taken Unknown] pantoprazole 40 mg PO BID 05/27/20 [History Last Taken Unknown] metformin 500 mg PO DAILY 09/02/20 [History Last Taken Unknown] ondansetron 4 mg PO Q8H PRN #10 tab 09/11/20 [Rx Last Taken Unknown] psyllium husk (aspartame) [Metamucil Fiber Singles] 1 packet PO DAILY PRN PRN #0 ea 09/19/20 [Rx Last Taken Unknown] hydroxyzine pamoate [Vistaril] 25 mg PO TID PRN #14 cap 12/05/20 [Rx Last Taken Unknown] alendronate [Fosamax] 70 mg PO QWEEK 02/18/21 [History Last Taken Unknown] furosemide [Lasix] 20 mg PO DAILY 02/18/21 [History Last Taken Unknown] mirtazapine 30 mg PO QHS 02/18/21 [History Last Taken Unknown] pravastatin 80 mg PO QHS 02/18/21 [History Last Taken Unknown] prazosin 5 mg PO QHS 02/18/21 [History Last Taken Unknown] methocarbamol 500 mg PO 4X/DAY PRN PRN 10 Days #40 tab 06/23/21 [Rx Last Taken Unknown] diazepam [Valium] 2 mg PO TID PRN 5 Days #15 tab 07/10/21 [Rx Last Taken Unknown] Allergy/AdvReac Type Severity Reaction Status Date / Time acetaminophen [From Tylenol] AdvReac Upset Verified 08/13/21 02:50 Stomach amoxicillin [From Augmentin] AdvReac Hives Verified 08/13/21 02:50 clavulanic acid AdvReac Hives Verified 08/13/21 02:50 [From Augmentin] ibuprofen [From Advil] AdvReac Nausea Verified 08/13/21 02:50 sulfamethoxazole AdvReac Vomiting Verified 08/13/21 02:50 [From Bactrim] sumatriptan [From Imitrex] AdvReac Vomiting Verified 08/13/21 02:50 sumatriptan succinate AdvReac Vomiting Verified 08/13/21 02:50 [From Imitrex] trimethoprim [From Bactrim] AdvReac Vomiting Verified 08/13/21 02:50 BEE STING Allergy Anaphylaxis Uncoded 08/13/21 02:50 ANTI PSYCHOTICS AdvReac Other Uncoded 08/13/21 02:50 PAPER TAPE AdvReac Rash Uncoded 08/13/21 02:50 Family History Mother Hypertension Father Hypertension Surgical History H/O hand surgery H/O knee surgery History of cholecystectomy History of left heart catheterization (06/23/19) Social History household members: none Smoking Status: Former smoker alcohol intake: never substance use type: does not use ROS ROS ED Constitutional Constitutional ED: Denies chills or fever(s) Eyes Eyes: Denies change in vision or diplopia ENT ENT ED: Denies rhinorrhea or sore throat Cardiovascular Cardiovascular: Denies chest pain or palpitations Respiratory/Chest Respiratory/Chest: Denies cough or dyspnea Gastrointestinal Gastrointestinal: Reports as per HPI, abdominal pain, constipation and nausea; Denies vomiting Genitourinary Genitourinary ED: Reports flank pain; Denies dysuria or hematuria Musculoskeletal Musculoskeletal: Reports back pain; Denies neck pain Integumentary Denies abscess or rash Neurologic Neurologic: Denies headache(s), paresthesias or weakness Psychiatric Psychiatric: Denies anxiety or suicidal thoughts EXAM Physical Exam Const Vital Signs: 08/13/21 02:47 08/13/21 02:50 Temperature 97.9 F Temperature Source Oral Pulse Rate 92 Respiratory Rate 15 Respiratory Effort Normal Non-Labored Respiratory Pattern Normal Blood Pressure 140/87 H Blood Pressure Mean 104 Pulse Ox 99 Oxygen Delivery Method Room Air Positive well nourished, well developed and obese General Appearance ED: well developed and NAD Nutritional Appearance: obese HEENT Reports moist mucous membranes normocephalic and atraumatic Eyes PERRL and EOMs intact bilaterally Neck full ROM and supple Resp normal respiratory effort and clear to auscultation bilaterally Cardio regular rate, regular rhythm and no murmurs GI non-distended GI Narrative: Mildly tender throughout the left side. No guarding or rebound. No other areas of tenderness. Normal on inspection. Exam limited by obesity. Auscultation: normoactive bowel sounds Palpation: soft Back/Spine no CVA tenderness General Back: other FROM Extremity normal to inspection General Extremety ED: Negative for edema, pulses abnormal or tenderness General Extremity: Negative for edema or pulses abnormal Neuro oriented x3, CN's II-XII intact bilaterally and no sensory deficits noted Sensorium / Orientation: awake and alert Motor Exam: strength 5/5 throughout Skin no rashes or lesions noted and no wounds MDM MDM MDM Narrative Medical decision making narrative: With regards to her hernia, she states she remembers she was diagnosed with an umbilical hernia. Right now she has no pain or tenderness at the umbilicus and no hernia there, all of her pain is in the left and her abdomen is mildly tender there but her exam is benign. Patient had a CT scan just over 1 month ago for left flank pain. It was negative except for nonobstructive nephrolithiasis. Furthermore she states she has had renal colic from kidney stones in the past and this DOES NOT feel like that pain. To me she sounds constipated right now. I advised her I recommend trying a fleets enema to get her to have a bowel movement if she would wish, before I would repeat her CT scan. She was initially amenable to that, but then refused the fleets enema and states she would rather try something orally. I explained magnesium citrate, we gave her half of a bottle here, encouraged to drink fluids, she was given the rest of the bottle to go home with, and if she has a bowel movement and still has lots of pain, she is welcome to return. Discharge Plan Triage Chief Complaint: Other, Pain/Inj ED Provider: Arnel Burrell Dx/Rx/DC Orders Clinical Impression: Acute left flank pain, Constipation Instructions: Treating Constipation Prescriptions: No Action albuterol sulfate 1 INHALER inhaler 2 puff inhalation Q6H PRN PRN (Reason: Shortness Of Breath) RF: 0 calcium carbonate-vitamin D3 1 EACH tablet 1 ea PO DAILY RF: 0 metoprolol succinate 25 MG tablet extended release 24 hr 25 mg PO DAILY RF: 0 divalproex 250 MG tablet 250 mg PO BIDCM RF: 0 topiramate 200 MG tablet 200 mg PO BID RF: 0 pantoprazole 40 MG tablet 40 mg PO BID RF: 0 lurasidone 40 MG tablet 1 tab PO DAILY RF: 0 duloxetine 30 MG capsule,delayed release(DR/EC) 30 mg PO DAILY RF: 0 metformin 500 mg tablet 500 mg PO DAILY RF: 0 ondansetron 4 mg tablet,disintegrating 4 mg PO Q8H PRN (Reason: nausea and vomiting) Qty: 10 RF: 0 Metamucil Fiber Singles 3.4 gram Powder In Packet 1 packet PO DAILY PRN PRN (Reason: Constipation) Qty: 0 RF: 0 hydroxyzine pamoate [Vistaril] 25 mg capsule 25 mg PO TID PRN (Reason: itching) Qty: 14 RF: 0 mirtazapine 30 mg Tablet,Disintegrating 30 mg PO QHS RF: 0 prazosin 1 mg Capsule 5 mg PO QHS RF: 0 alendronate [Fosamax] 70 mg Tablet 70 mg PO QWEEK RF: 0 pravastatin 80 mg Tablet 80 mg PO QHS RF: 0 furosemide [Lasix] 20 mg Tablet 20 mg PO DAILY RF: 0 methocarbamol 500 mg tablet 500 mg PO 4X/DAY PRN PRN (Reason: Muscle pain/spasm) 10 Days Qty: 40 RF: 0 diazepam [Valium] 2 mg tablet 2 mg PO TID PRN (Reason: muscle spasm) 5 Days Qty: 15 RF: 0 Primary Care Provider: Justino Escoto Referrals: Justino Escoto MD [Primary Care Provider] - 3-5 Days if not improving (Or may return to the ER if you have a good bowel movement from the laxative and you are not feeling better) Activity Restrictions/Additional Instructions: You may have a good bowel movement within 6-24 hours of taking the magnesium citrate. If you do not, you may repeat with the other half of the bottle 24 hours or so after the initial half. Drink plenty of fluids after taking magnesium citrate. You may also try fleets enema in addition to this at home if you are still unable to have a bowel movement but feel like you need to. Disposition Disposition: Home, Self Care
[2021-08-13] MEDS: Magnesium Citrate 300 ML 150 ML PO (04:31)
== END 2021-08-13 04:32 | disposition home or self-care (01) ==
PROVIDERS: Emergency Provider Emergency Medicine; PCP Family Medicine; Visit Provider Emergency Medicine
DX: R10.9 Unspecified abdominal pain (principal); K59.00 Constipation, unspecified; I25.10 Atherosclerotic heart disease of native coronary artery without angina pectoris; E66.9 Obesity, unspecified; Z87.891 Personal history of nicotine dependence; Z86.73 Personal history of transient ischemic attack (TIA), and cerebral infarction without residual deficits; Z99.81 Dependence on supplemental oxygen

== ENCOUNTER 2021-08-13 20:51 | Emergency (ER) | payer MEDICARE, MEDICAID, SELFPAY ==
[2021-08-13 20:54] VITALS: BP 115/56; PULSE 94; RESP 16; TEMP 37; O2SAT 98; BMI 45.9
--- NOTE | 2021-08-13 21:35 | EDS_ITS ---
HPI HPI - GI History of Present Illness Chief Complaint: Abd Pain Informant: patient Abdominal Pain/Flank Pain Onset: Weeks Context: Gradual Onset Timing: Continuous Quality: Sharp Location: LLQ Worsened by: Movement Relieved by: Nothing Nausea/Vomiting/Emesis GI Symptom: Positive for Nausea and Vomiting Diarrhea/Melena/Hematochezia GI Symptom: Negative for Diarrhea, Melena and Hematochezia Associated Symptoms Associated Symptoms: Positive for Frequency; Negative for Dysuria and Hematuria Narrative Narrative: Patient presents with abdominal pain that has been getting worse over the past 3 to 4 weeks. Patient was seen here earlier today for this. Patient states her pain became worse tonight. Patient states her pain is sharp. Patient states it is over the left mid abdomen. Patient states it is worse with movement. Patient states she started having some nausea and vomiting tonight. Patient admits to some constipation recently as well. Patient denies any melena or hematochezia. Patient denies any hematemesis or coffee-ground emesis. Patient admits to some urinary frequency but denies any dysuria or hematuria. Patient states she called her surgeon from [facility] who told her to come to [facility] emergency department for further evaluation and that if patient required emergency surgery then she could be transferred there. [facility] Medical History Anxiety Asthma Chronic pain Coronary artery disease Depression Former smoker GERD (gastroesophageal reflux disease) History of fracture of hand Hypertension Irregular heart beat Migraines On home oxygen therapy PTSD (post-traumatic stress disorder) Seizures Stroke/cerebrovascular accident Home Medications albuterol sulfate 2 puff INHALATION Q6H PRN PRN 02/20/18 [History Last Taken 06/21/19 18:00] calcium carbonate-vitamin D3 1 ea PO DAILY 06/13/19 [History Last Taken 06/19/19] metoprolol succinate 25 mg PO DAILY 07/08/19 [History Last Taken 07/21/19] divalproex 250 mg PO BIDCM 11/15/19 [History Last Taken Unknown] topiramate 200 mg PO BID 11/15/19 [History Last Taken Unknown] duloxetine 30 mg PO DAILY 05/27/20 [History Last Taken Unknown] lurasidone 1 tab PO DAILY 05/27/20 [History Last Taken Unknown] pantoprazole 40 mg PO BID 05/27/20 [History Last Taken Unknown] metformin 500 mg PO DAILY 09/02/20 [History Last Taken Unknown] ondansetron 4 mg PO Q8H PRN #10 tab 09/11/20 [Rx Last Taken Unknown] psyllium husk (aspartame) [Metamucil Fiber Singles] 1 packet PO DAILY PRN PRN #0 ea 09/19/20 [Rx Last Taken Unknown] hydroxyzine pamoate [Vistaril] 25 mg PO TID PRN #14 cap 12/05/20 [Rx Last Taken Unknown] alendronate [Fosamax] 70 mg PO QWEEK 02/18/21 [History Last Taken Unknown] furosemide [Lasix] 20 mg PO DAILY 02/18/21 [History Last Taken Unknown] mirtazapine 30 mg PO QHS 02/18/21 [History Last Taken Unknown] pravastatin 80 mg PO QHS 02/18/21 [History Last Taken Unknown] prazosin 5 mg PO QHS 02/18/21 [History Last Taken Unknown] methocarbamol 500 mg PO 4X/DAY PRN PRN 10 Days #40 tab 06/23/21 [Rx Last Taken U nknown] diazepam [Valium] 2 mg PO TID PRN 5 Days #15 tab 07/10/21 [Rx Last Taken Unknown] Allergy/AdvReac Type Severity Reaction Status Date / Time acetaminophen [From Tylenol] AdvReac Upset Verified 08/13/21 20:57 Stomach amoxicillin [From Augmentin] AdvReac Hives Verified 08/13/21 20:57 clavulanic acid AdvReac Hives Verified 08/13/21 20:57 [From Augmentin] ibuprofen [From Advil] AdvReac Nausea Verified 08/13/21 20:57 sulfamethoxazole AdvReac Vomiting Verified 08/13/21 20:57 [From Bactrim] sumatriptan [From Imitrex] AdvReac Vomiting Verified 08/13/21 20:57 sumatriptan succinate AdvReac Vomiting Verified 08/13/21 20:57 [From Imitrex] trimethoprim [From Bactrim] AdvReac Vomiting Verified 08/13/21 20:57 BEE STING Allergy Anaphylaxis Uncoded 08/13/21 20:57 ANTI PSYCHOTICS AdvReac Other Uncoded 08/13/21 20:57 PAPER TAPE AdvReac Rash Uncoded 08/13/21 20:57 Family History Mother Hypertension Father Hypertension Surgical History H/O hand surgery H/O knee surgery History of cholecystectomy History of left heart catheterization (06/23/19) Social History household members: none Smoking Status: Former smoker alcohol intake: never substance use type: does not use ROS ROS ED Constitutional Constitutional ED: Denies chills or fever(s) Eyes Eyes: Denies blurry vision or change in vision ENT ENT ED: Denies rhinorrhea or sore throat Cardiovascular Cardiovascular: Denies chest pain or palpitations Respiratory/Chest Respiratory/Chest: Denies cough or dyspnea Gastrointestinal Gastrointestinal: Reports abdominal pain, constipation, nausea and vomiting Genitourinary Genitourinary ED: Reports urinary frequency; Denies dysuria or hematuria Musculoskeletal Musculoskeletal: Reports back pain; Denies neck pain Integumentary Denies abscess or rash Neurologic Neurologic: Denies headache(s) or weakness Allergic/Immunologic Allergic/Immunologic ED: Denies mouth swelling or urticaria EXAM Physical Exam Const Vital Signs: 08/13/21 20:54 08/13/21 23:00 Temperature 98.6 F Temperature Source Oral Pulse Rate 94 78 Respiratory Rate 16 16 Blood Pressure 115/56 L 134/66 H Blood Pressure Mean 75 88 Pulse Ox 98 98 Oxygen Delivery Method Room Air Room Air Positive well nourished and well developed General Appearance ED: well developed and NAD HEENT Reports moist mucous membranes Neck supple and no JVD Resp normal respiratory effort and clear to auscultation bilaterally Cardio regular rate, regular rhythm and no murmurs GI normal to inspection, nondistended, normoactive bowel sounds Palpation: soft and tender LLQ; Negative for guarding or rebound tenderness present Extremity normal to inspection General Extremety ED: Negative for edema or tenderness General Extremity: Negative for edema Neuro oriented x3, CN's II-XII intact bilaterally and no sensory deficits noted Sensorium / Orientation: alert Motor Exam: strength 5/5 throughout Psych mental status grossly normal Skin no rashes or lesions noted MDM MDM MDM Narrative Medical decision making narrative: Patient was given IV fluids, morphine, and Zofran here. CBC was within normal limits. Comprehensive metabolic profile was essentially within normal limits. Lipase was normal. Urinalysis does not show any evidence of urinary tract infection or hematuria. Acute abdominal x-rays were obtained. There are 5 views. On my interpretation, there is no evidence of perforation or obstruction. There is nonspecific bowel gas pattern. Rad iologist also interpreted the x-ray and agrees. Patient was advised of her findings. Patient was instructed to follow-up with her primary care physician in 3 to 5 days. Patient understood and was agreeable with the plan. All questions were answered. Lab Data Attestation: I reviewed the patient's lab results. Labs: Laboratory Results - last 24 hr 08/13/21 08/13/21 08/13/21 21:55 21:55 22:00 WBC 9.1 RBC 4.21 Hgb 13.4 Hct 39.6 MCV 94.1 MCH 31.8 MCHC 33.8 RDW Std Deviation 45.4 H RDW Coeff of Lenora 13.2 Plt Count 224 MPV 10.2 Immature Gran % (Auto) 0.200 Neut % (Auto) 41.9 L Lymph % (Auto) 42.4 H Hartley % (Auto) 11.5 H Eos % (Auto) 3.0 Baso % (Auto) 1.0 Absolute Neuts (auto) 3.8 Absolute Lymphs (auto) 3.85 Nucleated RBC % 0 Sodium 143 Potassium 3.8 Chloride 109 H Carbon Dioxide 31.0 Anion Gap 3 L BUN 12 Creatinine 0.92 Estim Creat Clear Calc 48.86 Est GFR (MDRD) Af Amer 79 Est GFR (MDRD) Non-Af 65 BUN/Creatinine Ratio 13.1 Glucose 115 H Calcium 8.8 Total Bilirubin 0.30 AST 15 ALT 18 Alkaline Phosphatase 70 Total Protein 7.0 Albumin 3.2 Globulin 3.8 Albumin/Globulin Ratio 0.8 L Lipase 142 Urine Color Yellow Urine Clarity Clear Urine pH 7.0 Ur Specific [place] 1.015 Urine Protein Negative Urine Glucose (UA) Normal Urine Ketones Negative Urine Occult Blood Negative Urine Nitrite Negative Urine Bilirubin Negative Urine Urobilinogen Normal Ur Leukocyte Esterase 100 H Urine RBC 0 SEEN Urine WBC 0-5 SEEN Ur Squamous Epith Cells 0 SEEN Amorphous Sediment 1+ Urine Bacteria 0 SEEN Urine Mucus 0 SEEN Discharge Plan Triage Chief Complaint: Abd Pain ED Provider: Schwiger,Jorje Dx/Rx/DC Orders Clinical Impression: Abdominal pain, Abdominal hernia Instructions: ED Abdominal Pain Unkn Cause Fem, ED Constipation (Adult), ED Hernia (Adult) Prescriptions: No Action albuterol sulfate 1 INHALER inhaler 2 puff inhalation Q6H PRN PRN (Reason: Shortness Of Breath) RF: 0 calcium carbonate-vitamin D3 1 EACH tablet 1 ea PO DAILY RF: 0 metoprolol succinate 25 MG tablet extended release 24 hr 25 mg PO DAILY RF: 0 divalproex 250 MG tablet 250 mg PO BIDCM RF: 0 topiramate 200 MG tablet 200 mg PO BID RF: 0 pantoprazole 40 MG tablet 40 mg PO BID RF: 0 lurasidone 40 MG tablet 1 tab PO DAILY RF: 0 duloxetine 30 MG capsule,delayed release(DR/EC) 30 mg PO DAILY RF: 0 metformin 500 mg tablet 500 mg PO DAILY RF: 0 ondansetron 4 mg tablet,disintegrating 4 mg PO Q8H PRN (Reason: nausea and vomiting) Qty: 10 RF: 0 Metamucil Fiber Singles 3.4 gram Powder In Packet 1 packet PO DAILY PRN PRN (Reason: Constipation) Qty: 0 RF: 0 hydroxyzine pamoate [Vistaril] 25 mg capsule 25 mg PO TID PRN (Reason: itching) Qty: 14 RF: 0 mirtazapine 30 mg Tablet,Disintegrating 30 mg PO QHS RF: 0 prazosin 1 mg Capsule 5 mg PO QHS RF: 0 alendronate [Fosamax] 70 mg Tablet 70 mg PO QWEEK RF: 0 pravastatin 80 mg Tablet 80 mg PO QHS RF: 0 furosemide [Lasix] 20 mg Tablet 20 mg PO DAILY RF: 0 methocarbamol 500 mg tablet 500 mg PO 4X/DAY PRN PRN (Reason: Muscle pain/spasm) 10 Days Qty: 40 RF: 0 diazepam [Valium] 2 mg tablet 2 mg PO TID PRN (Reason: muscle spasm) 5 Days Qty: 15 RF: 0 Primary Care Provider: Justino Escoto Referrals: Justino Escoto MD [Primary Care Provider] - 3-5 Days Disposition Disposition: Home, Self Care
--- NOTE | 2021-08-13 21:40 | RAD_ITS ---
STUDY: ACUTE ABDOMEN X-RAY SERIES--6 VIEWS OF 2209 HOURS ON 08/13/2021 REASON FOR EXAM: 65-year-old female with abdominal pain. TECHNIQUE: Single view of the chest. Supine, 5 view(s) of the abdomen were obtained. COMPARISON: None. FINDINGS: Mild demineralization. Mild to moderate cardiomegaly with left ventricular cardiac configuration. Borderline to mild emphysema. No pulmonary infiltrates, atelectasis, effusion, or pulmonary mass lesions. No free subdiaphragmatic air. No abdominal hepatomegaly. No abnormal intra-abdominal calcification or collections of air. No evidence of free air. Moderate constipation. Mildly distended bladder. Complete right hip prosthesis. Obesity. RAD/Acute Abdomen Inc Chest IMPRESSION: 1. Mild to moderate cardiomegaly with left ventricular cardiac configuration, but no evidence of heart failure. 2. Borderline to mild emphysema. 3. No evidence of active cardiopulmonary disease. 4. No free subdiaphragmatic air. 5. Moderate constipation. Otherwise, unremarkable intestinal gas pattern. 6. No abnormal intra-abdominal calcifications or collections of air. 7. Mildly distended bladder. 8. Complete right hip prosthesis. 9. Obesity. Electronically Signed: Jayce Combs MD at 23:39 EDT ,
[2021-08-13 22:05] LABS: Absolute Lymphocyte Count 3.85 X10^3/uL (0.83-4.51); Absolute Neutrophil Count 3.8 X10^3/uL (2.0-7.7); Basophil# 0.09 X10^3/uL; Eosinophil# 0.27 X10^3/uL; Hematocrit 39.6 % (37-47); Hemoglobin 13.4 g/dL (12.0-15.0); Lymphocyte # 3.85 X10^3/ul (0.83-4.51); Lymphocyte % 42.4 % (19-41); Mean Corp Hgb Conc 33.8 g/dL (32-36); Mean Corpuscular Hgb 31.8 pg (27.0-32.0); Mean Corpuscular Volume 94.1 fL (81-99); Mean Platelet Vol. 10.2 fl (6.2-12.0); Monocyte# 1.04 X10^3/uL; Monocyte% 11.5 % (0-10); NRBC Flagged by Analyzer 0 % (0-5); Neutrophil # 3.81 X10^3/uL (2.7-7.7); Neutrophil % 41.9 % (47-70); Platelet Count 224 K/mm3 (150-450); RBC Distribution Width CV 13.2 % (11.6-14.6); RBC Distribution Width SD 45.4 fl (35.1-43.9); Red Blood Count 4.21 M/mm3 (4.2-5.4); White Blood Count 9.1 K/mm3 (4.4-11.0)
[2021-08-13] MEDS: Morphine 2 MG/ML Syringe IV (22:22)
[2021-08-13] MEDS: 0.9% Normal Saline 1,000 ML 1000 ML IV (22:22)
[2021-08-13] MEDS: Ondansetron 4 MG/2 ML Vial IV (22:22)
[2021-08-13 22:23] LABS: ALB/GLOB Ratio 0.8 RATIO (0.9-2.4); AST(SGOT) 15 U/L (15-37); Alanine Aminotransfer ALT/SGPT 18 U/L (13-56); Albumin, Serum 3.2 g/dL (3.2-5.0); Alkaline Phosphatase 70 U/L (45-117); Anion Gap 3 (5-15); BUN 12 mg/dL (7-18); BUN/Creat Ratio 13.1 RATIO (10-20); Calcium,Total 8.8 mg/dL (8.5-10.1); Chloride 109 mmol/L (98-107); Creatinine, Serum 0.92 mg/dL (0.55-1.02); EST Glomerular Filtration Rate 65 mL/min (>60); Est Glom Filt Rate - Afr Amer 79 mL/min (>60); Estimated Creatinine Clearance 48.86 ml/min; Globulin 3.8 g/dL (2.2-4.2); Glucose 115 mg/dL (74-106); Lipase 142 U/L (73-393); Potassium 3.8 mmol/L (3.5-5.1); Sodium Level 143 mmol/L (136-145)
[2021-08-13 22:25] LABS: Bacteria 0 SEEN /hpf (None Seen); Color, Urine Yellow (Yellow); Glucose, Dipstick Normal (Normal); Ketone-Dipstick Negative (Negative); Leukocyte Esterase-Dipstick 100 /ul (Negative); Mucous, Urine 0 SEEN /hpf (<or=2+); Nitrite-Dipstick Negative (Negative); Occult Blood-Urine Negative /ul (Negative); Protein-Dipstick Negative (Negative); Red Blood Cells-Urine 0 SEEN /hpf (0-5); Specific Gravity, Urine 1.015 (1.002-1.030); Squamous Epithelial Cells - UA 0 SEEN /hpf (5-10); Urine Bilirubin Dipstick Negative (Negative); Urine Clarity Clear (Clear); Urine Urobilinogen Normal (Normal)
[2021-08-13 22:33] LABS: White Blood Cells 0-5 SEEN /hpf (0-5)
[2021-08-13 22:34] LABS: Amorphous Sediment 1+
[2021-08-13 23:00] VITALS: BP 134/66; PULSE 78; RESP 16; O2SAT 98
== END 2021-08-13 23:59 | disposition home or self-care (01) ==
PROVIDERS: Emergency Provider Emergency Medicine; PCP Family Medicine; Visit Provider Emergency Medicine
DX: R10.32 Left lower quadrant pain (principal); K59.00 Constipation, unspecified; I10 Essential (primary) hypertension; I25.10 Atherosclerotic heart disease of native coronary artery without angina pectoris; E66.9 Obesity, unspecified; Z87.891 Personal history of nicotine dependence; Z86.73 Personal history of transient ischemic attack (TIA), and cerebral infarction without residual deficits; Z99.81 Dependence on supplemental oxygen; Z79.899 Other long term (current) drug therapy
CPT/HCPCS: 74022; 80053; 81001; 83690; 85025; 96361; 96374; 96375; 99282; 99285; A4216; J2405

== ENCOUNTER 2021-08-14 02:58 | Emergency (ER) | payer MEDICARE, MEDICAID, SELFPAY ==
[2021-08-14 02:59] VITALS: BP 105/69; PULSE 95; RESP 18; TEMP 36.4; O2SAT 96; BMI 50.2
--- NOTE | 2021-08-14 03:04 | CT_ITS ---
EXAM: CT ABDOMEN AND PELVIS WITH INTRAVENOUS CONTRAST CLINICAL INDICATION: left sided abd pain, n/v TECHNIQUE: Helically acquired images were obtained of the abdomen and pelvis with intravenous contrast. This CT exam was performed using one or more of the following dose reduction techniques: automated exposure control, adjustment of the mA and/or kV according to patient size, and/or use of iterative reconstruction technique. This report was created using Cardio control report generation technology. CONTRAST: IV 100mL [id number] RADIATION DOSE: CTDIvol = 26.11 mGy, DLP = 2052.25 mGy-cm. COMPARISON: 07/10/2021. FINDINGS: LOWER THORAX: Unremarkable. Lung bases are clear. No cardiomegaly. No significant pericardial effusion. ABDOMEN: LIVER: There is diffuse low-attenuation of the liver. GALLBLADDER AND BILE DUCTS: Cholecystectomy. No intra- or extrahepatic biliary ductal dilation. PANCREAS: Unremarkable. No focal cystic or solid mass. SPLEEN: Unremarkable. Normal size without focal cystic or solid mass. ADRENALS: Unremarkable. No nodules. KIDNEYS AND URETERS: Small nonobstructing stone lower pole left kidney unchanged. STOMACH AND BOWEL: Unremarkable. No stomach or bowel distention. No focal inflammatory change. PELVIS: APPENDIX: Normal appendix. BLADDER: Unremarkable. REPRODUCTIVE: Unremarkable as visualized. No mass. ABDOMEN and PELVIS: INTRAPERITONEAL SPACE: Unremarkable. No ascites or other fluid collection. No free air. BONES/JOINTS: Right hip arthroplasty. No suspicious lytic or blastic abnormality. SOFT TISSUES: Unremarkable. No discrete abdominal or pelvic wall hernia. VASCULATURE: Unremarkable. Abdominal aorta is non-dilated. LYMPH NODES: Unremarkable. No enlarged lymph nodes. CT/Abdomen/Pelvis W IV Cont ONLY IMPRESSION: 1. Fatty liver. 2. Small nonobstructing stone lower pole left kidney unchanged. 3. Cholecystectomy. 4. No acute intra-abdominal abnormality. Electronically Signed: Trent Etinene MD at 4:01 EDT ,
--- NOTE | 2021-08-14 03:07 | EDS_ITS ---
HPI HPI - GI History of Present Illness Chief Complaint: Nausea/Vomiting Informant: patient Abdominal Pain/Flank Pain Onset: Days (2) Context: Gradual Onset Timing: Continuous Quality: Aching Location: LUQ, LLQ and Left Flank Current Severity: Moderate Maximum Severity: Moderate Worsened by: Nothing Relieved by: Nothing Nausea/Vomiting/Emesis GI Symptom: Positive for Nausea and Vomiting Onset: Today Quality: Positive for Blood streaks Episodes: 1 Diarrhea/Melena/Hematochezia GI Symptom: Positive for - (can't have a BM); Negative for Melena and Hematochezia Associated Symptoms Associated Symptoms: Negative for Dysuria, Frequency and Hematuria Narrative Narrative: Patient presents for the third visit in the past 24 hours for this same left flank pain and inability to have a bowel movement. She usually goes daily, now it has been about 3 days and she has had 1. She refused an enema, was given magnesium citrate, she states that she drink a lot of water after that and has still not had a bowel movement. Last night, she had labs and an acute abdominal series that was consistent with constipation. Now she has vomited once she states there was a small amount of red in it, and after vomiting, she is having substernal chest burning. She denies dyspnea. She states she has an umbilical hernia and she thinks that is the problem here although she admits that the pain is left of the area where she states she was diagnosed with a hernia, which we do not have record of. She again states that she has called multiple doctors of hers concerning this and they recommended that she come to the nearest emergency department. [facility] Medical History Anxiety Asthma Chronic pain Coronary artery disease Depression Former smoker GERD (gastroesophageal reflux disease) History of fracture of hand Hypertension Irregular heart beat Migraines On home oxygen therapy PTSD (post-traumatic stress disorder) Seizures Stroke/cerebrovascular accident Home Medications albuterol sulfate 2 puff INHALATION Q6H PRN PRN 02/20/18 [History Last Taken 06/21/19 18:00] calcium carbonate-vitamin D3 1 ea PO DAILY 06/13/19 [History Last Taken 06/19/19] metoprolol succinate 25 mg PO DAILY 07/08/19 [History Last Taken 07/21/19] divalproex 250 mg PO BIDCM 11/15/19 [History Last Taken Unknown] topiramate 200 mg PO BID 11/15/19 [History Last Taken Unknown] duloxetine 30 mg PO DAILY 05/27/20 [History Last Taken Unknown] lurasidone 1 tab PO DAILY 05/27/20 [History Last Taken Unknown] pantoprazole 40 mg PO BID 05/27/20 [History Last Taken Unknown] metformin 500 mg PO DAILY 09/02/20 [History Last Taken Unknown] ondansetron 4 mg PO Q8H PRN #10 tab 09/11/20 [Rx Last Taken Unknown] psyllium husk (aspartame) [Metamucil Fiber Singles] 1 packet PO DAILY PRN PRN #0 ea 09/19/20 [Rx Last Taken Unknown] hydroxyzine pamoate [Vistaril] 25 mg PO TID PRN #14 cap 12/05/20 [Rx Last Taken Unknown] alendronate [Fosamax] 70 mg PO QWEEK 02/18/21 [History Last Taken Unknown] furosemide [Lasix] 20 mg PO DAILY 02/18/21 [History Last Taken Unknown] mirtazapine 30 mg PO QHS 02/18/21 [History Last Taken Unknown] pravastatin 80 mg PO QHS 02/18/21 [History Last Taken Unknown] prazosin 5 mg PO QHS 02/18/21 [History Last Taken Unknown] methocarbamol 500 mg PO 4X/DAY PRN PRN 10 Days #40 tab 06/23/21 [Rx Last Taken Unknown] diazepam [Valium] 2 mg PO TID PRN 5 Days #15 tab 07/10/21 [Rx Last Taken Unknown] Allergy/AdvReac Type Severity Reaction Status Date / Time acetaminophen [From Tylenol] AdvReac Upset Verified 08/13/21 20:57 Stomach amoxicillin [From Augmentin] AdvReac Hives Verified 08/13/21 20:57 clavulanic acid AdvReac Hives Verified 08/13/21 20:57 [From Augmentin] ibuprofen [From Advil] AdvReac Nausea Verified 08/13/21 20:57 sulfamethoxazole AdvReac Vomiting Verified 08/13/21 20:57 [From Bactrim] sumatriptan [From Imitrex] AdvReac Vomiting Verified 08/13/21 20:57 sumatriptan succinate AdvReac Vomiting Verified 08/13/21 20:57 [From Imitrex] trimethoprim [From Bactrim] AdvReac Vomiting Verified 08/13/21 20:57 BEE STING Allergy Anaphylaxis Uncoded 08/13/21 20:57 ANTI PSYCHOTICS AdvReac Other Uncoded 08/13/21 20:57 PAPER TAPE AdvReac Rash Uncoded 08/13/21 20:57 Family History Mother Hypertension Father Hypertension Surgical History H/O hand surgery H/O knee surgery History of cholecystectomy History of left heart catheterization (06/23/19) Social History household members: none Smoking Status: Former smoker alcohol intake: never substance use type: does not use ROS ROS ED Constitutional Constitutional ED: Denies chills or fever(s) Eyes Eyes: Denies change in vision or diplopia ENT ENT ED: Denies rhinorrhea or sore throat Cardiovascular Cardiovascular: Reports as per HPI and chest pain; Denies palpitations Respiratory/Chest Respiratory/Chest: Denies cough or dyspnea Gastrointestinal Gastrointestinal: Reports as per HPI, abdominal pain, constipation, nausea and vomiting; Denies diarrhea Genitourinary Genitourinary ED: Denies dysuria or hematuria Musculoskeletal Musculoskeletal: Reports back pain; Denies neck pain Integumentary Denies abscess or rash Neurologic Neurologic: Denies headache(s), paresthesias or weakness Psychiatric Psychiatric: Denies anxiety or suicidal thoughts EXAM Physical Exam Const Vital Signs: 08/14/21 02:59 08/14/21 03:33 08/14/21 04:30 Temperature 97.6 F L Temperature Source Temporal Pulse Rate 95 87 Respiratory Rate 18 18 Respiratory Effort Normal Non-Labored Blood Pressure 105/69 142/67 H Blood Pressure Mean 81 92 Pulse Ox 96 95 Oxygen Delivery Method Room Air Room Air Positive well nourished, well developed and obese General Appearance ED: well developed and NAD Nutritional Appearance: obese HEENT Reports moist mucous membranes normocephalic and atraumatic Eyes PERRL and EOMs intact bilaterally Neck full ROM and supple Resp normal respiratory effort and clear to auscultation bilaterally Cardio regular rate, regular rhythm and no murmurs GI non-distended GI Narrative: Tender in the medial aspect of the left lower quadrant. No umbilical pain/tenderness/erythema and no palpable umbilical hernia, no palpable abdominal wall hernia otherwise either. Obesity limits the abdominal exam. Auscultation: normoactive bowel sounds Palpation: soft Back/Spine no CVA tenderness General Back: other FROM Extremity normal to inspection General Extremety ED: Negative for edema, pulses abnormal or tenderness General Extremity: Negative for edema or pulses abnormal Neuro oriented x3, CN's II-XII intact bilaterally and no sensory deficits noted Sensorium / Orientation: awake and alert Motor Exam: strength 5/5 throughout Psych Speech: loud Mood & Affect: hostile affect Skin no rashes or lesions noted and no wounds MDM MDM MDM Narrative Medical decision making narrative: Patient had labs several hours ago, they are noted and normal. I added a troponin which is normal, and her EKG is normal. I suspect her chest discomfort is noncardiac and probably related to the vomiting she had. Given that this is her third visit for the same thing in 3 days I went ahead and obtained a CT with IV contrast, it shows no acute abnormality. Reassured patient that as I discussed with her yesterday/day before, I think this is all constipation. I see no evidence of a hernia or strangulation of one on the CT. After IV fluids, Zofran, Toradol 15 mg, her nausea and pain are significantly better. I again offered an enema and she is amenable to it. She was given a soapsuds enema. Lab Data Attestation: I reviewed the patient's lab results. Labs: Laboratory Results - last 24 hr 08/14/21 03:22 Troponin I High Sens < 3 L Radiography Diagnostic Testing: Clinical Impression(s) from Imaging Studies Abdomen/Pelvis CT 08/14/21 03:04 IMPRESSION: 1. Fatty liver. 2. Small nonobstructing stone lower pole left kidney unchanged. 3. Cholecystectomy. 4. No acute intra-abdominal abnormality. Electronically Signed: Trent Etienne MD at 4:01 EDT , EKG Initial EKG: Attestation: I personally reviewed and interpreted this EKG as follows: Interpretation: Sinus Rhythm and No Acute Injury Pattern Comments: Inferior Q waves unchanged compared with prior otherwise negative/normal EKG Prior EKG tracings: available for review Prior: Unchanged Discharge Plan Triage Chief Complaint: Nausea/Vomiting ED Provider: Arnel Burrell Dx/Rx/DC Orders Clinical Impression: Left sided abdominal pain, Constipation Instructions: ED Constipation (Adult) Prescriptions: No Action albuterol sulfate 1 INHALER inhaler 2 puff inhalation Q6H PRN PRN (Reason: Shortness Of Breath) RF: 0 calcium carbonate-vitamin D3 1 EACH tablet 1 ea PO DAILY RF: 0 metoprolol succinate 25 MG tablet extended release 24 hr 25 mg PO DAILY RF: 0 divalproex 250 MG tablet 250 mg PO BIDCM RF: 0 topiramate 200 MG tablet 200 mg PO BID RF: 0 pantoprazole 40 MG tablet 40 mg PO BID RF: 0 lurasidone 40 MG tablet 1 tab PO DAILY RF: 0 duloxetine 30 MG capsule,delayed release(DR/EC) 30 mg PO DAILY RF: 0 metformin 500 mg tablet 500 mg PO DAILY RF: 0 ondansetron 4 mg tablet,disintegrating 4 mg PO Q8H PRN (Reason: nausea and vomiting) Qty: 10 RF: 0 Metamucil Fiber Singles 3.4 gram Powder In Packet 1 packet PO DAILY PRN PRN (Reason: Constipation) Qty: 0 RF: 0 hydroxyzine pamoate [Vistaril] 25 mg capsule 25 mg PO TID PRN (Reason: itching) Qty: 14 RF: 0 mirtazapine 30 mg Tablet,Disintegrating 30 mg PO QHS RF: 0 prazosin 1 mg Capsule 5 mg PO QHS RF: 0 alendronate [Fosamax] 70 mg Tablet 70 mg PO QWEEK RF: 0 pravastatin 80 mg Tablet 80 mg PO QHS RF: 0 furosemide [Lasix] 20 mg Tablet 20 mg PO DAILY RF: 0 methocarbamol 500 mg tablet 500 mg PO 4X/DAY PRN PRN (Reason: Muscle pain/spasm) 10 Days Qty: 40 RF: 0 diazepam [Valium] 2 mg tablet 2 mg PO TID PRN (Reason: muscle spasm) 5 Days Qty: 15 RF: 0 Primary Care Provider: Justino Escoto Referrals: Justino Escoto MD [Primary Care Provider] - 3-5 Days if not improving Disposition Disposition: Home, Self Care
--- NOTE | 2021-08-14 03:08 | EKG12_ITS ---
Test Reason : N/V Blood Pressure : / mmHG Vent. Rate : 084 BPM Atrial Rate : 084 BPM P-R Int : 228 ms QRS Dur : 082 ms QT Int : 378 ms P-R-T Axes : 042 -16 017 degrees QTc Int : 446 ms Sinus rhythm with 1st degree A-V block Low voltage QRS (Precordial Leads) Inferior infarct , age undetermined , cannot be excluded Abnormal ECG Confirmed by CATHY ROJAS, LUIS M ([id number]), brands editor HERMAN DOWNS ([id number]) on 08/16/2021 8:52:36 AM Referred By: ELGIN Confirmed By:LUIS M MORGAN MD
[2021-08-14] MEDS: Ketorolac 15 MG/ML Vial IV (03:27)
[2021-08-14] MEDS: Ondansetron 4 MG/2 ML Vial IV (03:28)
[2021-08-14 03:53] LABS: Troponin-I HS < 3 pg/mL (3.0-54.0)
[2021-08-14 04:30] VITALS: BP 142/67; PULSE 87; RESP 18; O2SAT 95
[2021-08-14 05:28] VITALS: RESP 18
== END 2021-08-14 05:58 | disposition home or self-care (01) ==
PROVIDERS: Emergency Provider Emergency Medicine; PCP Family Medicine; Visit Provider Emergency Medicine
DX: R10.9 Unspecified abdominal pain (principal); K59.00 Constipation, unspecified; I25.10 Atherosclerotic heart disease of native coronary artery without angina pectoris; Z87.891 Personal history of nicotine dependence; Z99.81 Dependence on supplemental oxygen
CPT/HCPCS: 74177; 84484; 93005; J7030; Q9967; A4216; J2405

== ENCOUNTER 2021-08-14 23:15 | Emergency (ER) | payer MEDICARE, MEDICAID, SELFPAY ==
[2021-08-14 23:17] VITALS: BP 119/75; PULSE 82; RESP 18; TEMP 36.3; O2SAT 95; BMI 47.5
--- NOTE | 2021-08-15 00:14 | EDS_ITS ---
HPI History of Present Illness Chief Complaint: Nausea/Vomiting Detail of Chief Complaint: I do not feel safe and want to talk to the counseling center. Informant: patient Onset/Context/Timing Onset: Days Context: Gradual Onset Current Severity: Mild Maximum Severity: Mild Narrative Narrative: 65-year-old female well-known to this emergency department has been here twice in the last 3 days. This is now her third visit. She has a history of chronic pain, CAD, PTSD and psychiatric disorders. Recently has been treated for constipation. States that she just does not feel safe at home. Does not feel that she needs to be admitted to a psychiatric facility but she would like to at the counseling center. Prior similar symptoms: Yes Recent Illness/Hospitalization: No PFSH PFS Medical History Anxiety Asthma Chronic pain Coronary artery disease Depression Former smoker GERD (gastroesophageal reflux disease) History of fracture of hand Hypertension Irregular heart beat Migraines On home oxygen therapy PTSD (post-traumatic stress disorder) Seizures Stroke/cerebrovascular accident Home Medications albuterol sulfate 2 puff INHALATION Q6H PRN PRN 02/20/18 [History Last Taken 06/21/19 18:00] calcium carbonate-vitamin D3 1 ea PO DAILY 06/13/19 [History Last Taken 06/19/19] metoprolol succinate 25 mg PO DAILY 07/08/19 [History Last Taken 07/21/19] divalproex 250 mg PO BIDCM 11/15/19 [History Last Taken Unknown] topiramate 200 mg PO BID 11/15/19 [History Last Taken Unknown] duloxetine 30 mg PO DAILY 05/27/20 [History Last Taken Unknown] lurasidone 1 tab PO DAILY 05/27/20 [History Last Taken Unknown] pantoprazole 40 mg PO BID 05/27/20 [History Last Taken Unknown] metformin 500 mg PO DAILY 09/02/20 [History Last Taken Unknown] ondansetron 4 mg PO Q8H PRN #10 tab 09/11/20 [Rx Last Taken Unknown] psyllium husk (aspartame) [Metamucil Fiber Singles] 1 packet PO DAILY PRN PRN #0 ea 09/19/20 [Rx Last Taken Unknown] hydroxyzine pamoate [Vistaril] 25 mg PO TID PRN #14 cap 12/05/20 [Rx Last Taken Unknown] alendronate [Fosamax] 70 mg PO QWEEK 02/18/21 [History Last Taken Unknown] furosemide [Lasix] 20 mg PO DAILY 02/18/21 [History Last Taken Unknown] mirtazapine 30 mg PO QHS 02/18/21 [History Last Taken Unknown] pravastatin 80 mg PO QHS 02/18/21 [History Last Taken Unknown] prazosin 5 mg PO QHS 02/18/21 [History Last Taken Unknown] methocarbamol 500 mg PO 4X/DAY PRN PRN 10 Days #40 tab 06/23/21 [Rx Last Taken Unknown] diazepam [Valium] 2 mg PO TID PRN 5 Days #15 tab 07/10/21 [Rx Last Taken Unknown] Allergy/AdvReac Type Severity Reaction Status Date / Time acetaminophen [From Tylenol] AdvReac Upset Verified 08/14/21 23:17 Stomach amoxicillin [From Augmentin] AdvReac Hives Verified 08/14/21 23:17 clavulanic acid AdvReac Hives Verified 08/14/21 23:17 [From Augmentin] ibuprofen [From Advil] AdvReac Nausea Verified 08/14/21 23:17 sulfamethoxazole AdvReac Vomiting Verified 08/14/21 23:17 [From Bactrim] sumatriptan [From Imitrex] AdvReac Vomiting Verified 08/14/21 23:17 sumatriptan succinate AdvReac Vomiting Verified 08/14/21 23:17 [From Imitrex] trimethoprim [From Bactrim] AdvReac Vomiting Verified 08/14/21 23:17 BEE STING Allergy Anaphylaxis Uncoded 08/14/21 23:17 ANTI PSYCHOTICS AdvReac Other Uncoded 08/14/21 23:17 PAPER TAPE AdvReac Rash Uncoded 08/14/21 23:17 Family History Mother Hypertension Father Hypertension Surgical History H/O hand surgery H/O knee surgery History of cholecystectomy History of left heart catheterization (06/23/19) Social History household members: none Smoking Status: Current every day smoker tobacco type: cigarettes alcohol intake: never substance use type: does not use ROS ROS ED ROS Narrative Constipation. Review of Systems ROS Unobtainable: Denies due to encephalopathy Constitutional Constitutional ED: Denies fever(s) Eyes Eyes: Denies change in vision ENT ENT ED: Denies ear pain Cardiovascular Cardiovascular: Denies chest pain Respiratory/Chest Respiratory/Chest: Denies cough or dyspnea Gastrointestinal Gastrointestinal: Reports constipation; Denies abdominal pain, diarrhea, melena, nausea or vomiting Genitourinary Genitourinary ED: Denies dysuria or hematuria Musculoskeletal Musculoskeletal: Denies myalgias Integumentary Denies rash Neurologic Neurologic: Denies headache(s) Psychiatric Psychiatric: Denies depression Endocrine Endocrinology: Denies polyuria Allergic/Immunologic Allergic/Immunologic ED: Denies urticaria EXAM Physical Exam Narrative Exam Narrative: 65-year-old no acute distress sitting upright in a wheelchair. Was sitting between the doorway and hallway when I entered the room. Patient is in no acute distress. Vital signs are stable afebrile. H EENT exam unremarkable. Neck nontender no lymphadenopathy. Lungs clear to auscultation. Heart regular rhythm no murmur. Abdomen soft nondistended normal bowel sounds no peritoneal signs. Moving all 4 extremities. Nontender no edema. Neurologically she is awake and alert with no focal motor deficits. Const Vital Signs: 08/14/21 23:17 Temperature 97.3 F L Temperature Source Temporal Pulse Rate 82 Respiratory Rate 18 Blood Pressure 119/75 Blood Pressure Mean 89 Pulse Ox 95 Oxygen Delivery Method Room Air Positive well nourished, well developed and obese; Negative for cachectic, contractures or unkempt General Appearance ED: well developed and NAD; Negative for unkempt, cachectic, contractures, cyanotic, diaphoretic or pallor Nutritional Appearance: obese; Negative for cachectic HEENT Reports moist mucous membranes Negative for trauma or tenderness Eyes PERRL and EOMs intact bilaterally General Eye ED: Negative for pale conjunctiva or scleral icterus Neck no lymphadenopathy, supple and no JVD General: Negative for tenderness Chest Wall inspection of chest normal and palpation of chest normal Resp normal respiratory effort and clear to auscultation bilaterally Effort and Inspection: Negative for pain with movement Auscultation: Negative for rales, rhonchi or wheezes Cardio regular rate, regular rhythm, S1 normal heart sound, S2 normal heart sound and no murmurs GI normal to inspection, nondistended, normoactive bowel sounds, non-tender, non- distended and no masses Inspection: Negative for abdominal distention Auscultation: normoactive bowel sounds Palpation: soft; Negative for tender, guarding or rebound tenderness present Back/Spine no CVA tenderness General Back: Negative for CVA tenderness Cervical Spine: Negative for cervical spine tenderness Thoracic Spine / Upper Back: Negative for thoracic spinal tenderness Extremity normal to inspection General Extremety ED: Negative for edema or tenderness General Extremity: Negative for edema Neuro oriented x3 Sensorium / Orientation: alert; Negative for orientation impaired, lethargic or stuporous Motor Exam: strength 5/5 throughout Psych mental status grossly normal Appearance: Negative for unkempt Attitude: No agitated Mood & Affect: Negative for depressed, anxious or tearful Skin no rashes or lesions noted and no wounds General Skin Exam: Negative for jaundice or pallor MDM MDM MDM Narrative Medical decision making narrative: 65-year-old female well-known to this emergency department third visit last 3 days. Would like to speak with the counseling center. She is no acute medical issue. Her exam is benign. She has recently been treated for constipation. Discharge Plan Triage Chief Complaint: Nausea/Vomiting Other Complaint: Constipation ED Provider: Tano Rangel Dx/Rx/DC Orders Clinical Impression: Anxiety and depression, Constipation Instructions: ED Constipation (Adult), ED Depression Prescriptions: No Action albuterol sulfate 1 INHALER inhaler 2 puff inhalation Q6H PRN PRN (Reason: Shortness Of Breath) RF: 0 calcium carbonate-vitamin D3 1 EACH tablet 1 ea PO DAILY RF: 0 metoprolol succinate 25 MG tablet extended release 24 hr 25 mg PO DAILY RF: 0 divalproex 250 MG tablet 250 mg PO BIDCM RF: 0 topiramate 200 MG tablet 200 mg PO BID RF: 0 pantoprazole 40 MG tablet 40 mg PO BID RF: 0 lurasidone 40 MG tablet 1 tab PO DAILY RF: 0 duloxetine 30 MG capsule,delayed release(DR/EC) 30 mg PO DAILY RF: 0 metformin 500 mg tablet 500 mg PO DAILY RF: 0 ondansetron 4 mg tablet,disintegrating 4 mg PO Q8H PRN (Reason: nausea and vomiting) Qty: 10 RF: 0 Metamucil Fiber Singles 3.4 gram Powder In Packet 1 packet PO DAILY PRN PRN (Reason: Constipation) Qty: 0 RF: 0 hydroxyzine pamoate [Vistaril] 25 mg capsule 25 mg PO TID PRN (Reason: itching) Qty: 14 RF: 0 mirtazapine 30 mg Tablet,Disintegrating 30 mg PO QHS RF: 0 prazosin 1 mg Capsule 5 mg PO QHS RF: 0 alendronate [Fosamax] 70 mg Tablet 70 mg PO QWEEK RF: 0 pravastatin 80 mg Tablet 80 mg PO QHS RF: 0 furosemide [Lasix] 20 mg Tablet 20 mg PO DAILY RF: 0 methocarbamol 500 mg tablet 500 mg PO 4X/DAY PRN PRN (Reason: Muscle pain/spasm) 10 Days Qty: 40 RF: 0 diazepam [Valium] 2 mg tablet 2 mg PO TID PRN (Reason: muscle spasm) 5 Days Qty: 15 RF: 0 Primary Care Provider: Justino Escoto Referrals: Counseling,Center [GROUP OF PHYSICIANS] - 1 Day Justino Escoto MD [Primary Care Provider] - As Needed Activity Restrictions/Additional Instructions: Follow-up with the counseling center. Follow-up with your primary care physician. Disposition Disposition: Home, Self Care
== END 2021-08-15 00:40 | disposition home or self-care (01) ==
PROVIDERS: Emergency Provider Emergency Medicine; PCP Family Medicine; Visit Provider Emergency Medicine
DX: F41.9 Anxiety disorder, unspecified (principal); F32.A Depression, unspecified; K59.00 Constipation, unspecified; I25.10 Atherosclerotic heart disease of native coronary artery without angina pectoris; E66.9 Obesity, unspecified; R10.9 Unspecified abdominal pain; Z87.891 Personal history of nicotine dependence; Z99.81 Dependence on supplemental oxygen
CPT/HCPCS: 74177; 84484; 93005; 96374; 96375; 99285; J7030; Q9967; A4216; J2405

== ENCOUNTER 2021-08-22 01:36 | Emergency (ER) | payer MEDICARE, MEDICAID, SELFPAY ==
[2021-08-22 01:36] VITALS: BP 144/78; PULSE 106; RESP 18; TEMP 36.6; O2SAT 96; BMI 43.9
--- NOTE | 2021-08-22 01:43 | CT_ITS ---
STUDY: CT CERVICAL SPINE WITHOUT CONTRAST REASON FOR EXAM: Female, 65 years old. Trauma RADIATION DOSAGE (If Supplied By Facility): CTDIvol = ( 24.52 ) mGy, DLP = ( 473.04 ) mGycm TECHNIQUE: High resolution transaxial imaging was performed without contrast material. Sagittal and coronal images were reconstructed. Individualized dose optimization techniques were used for this CT. COMPARISON: None FINDINGS: Normal craniovertebral junction. There are degenerative changes of the anterior atlantoaxial articulation. Normal odontoid process. Normal cervical lordosis. No acute fracture or subluxation. There is diffuse degenerative facet arthrosis. Normal visualized soft tissue structures. CT/Spine Cervical without Contras IMPRESSION: Negative unenhanced CT examination of the cervical spine for acute fracture or subluxation. Electronically Signed: Rigoberto Cabrera MD at 2:25 EDT ,
--- NOTE | 2021-08-22 01:43 | CT_ITS ---
STUDY: CT BRAIN WITHOUT CONTRAST REASON FOR EXAM: Female, 65 years old. Trauma RADIATION DOSAGE (If Supplied By Facility): CTDIvol = ( 44.99 ) mGy, DLP = ( 829.85 ) mGycm TECHNIQUE: Transaxial CT imaging of the brain was performed without administration of intravenous contrast material. Individualized dose optimization techniques were used for this CT. COMPARISON: CT head from 02/14/2021. FINDINGS: Normal soft tissue structures. Normal calvarium. Normal size ventricles and extra-axial spaces for the patient''s age. Normal white matter tracts of the cerebral hemispheres. Normal basal ganglia and thalami. Normal brainstem. Normal cerebellum. There is no intracranial hemorrhage. There are no findings of an acute ischemic infarction. Normal visualized paranasal sinuses. CT/Brain/Head without Contrast IMPRESSION: Negative unenhanced CT scan of the brain. Electronically Signed: Rigoberto Cabrera MD at 2:21 EDT ,
[2021-08-22] MEDS: Ketorolac 15 MG/ML Vial IM (02:54)
[2021-08-22 02:56] VITALS: BP 140/74; PULSE 80; RESP 17; TEMP 36.6; O2SAT 99
--- NOTE | 2021-08-22 03:03 | ED.VIS.FALL ---
HPI HPI - Fall History of Present Illness Chief Complaint: Fall Informant: patient Narrative Narrative: Patient is a 65-year-old female with extensive medical history presenting after a fall. Patient states that she was attempting to transfer self from her wheelchair to the toilet when she slipped and fell. She hit her head on the sink. She denies loss of consciousness but states she felt dazed. She is not on any anticoagulation. She is not complaining of worsening of her migraine as well as diffuse neck and back pain. Denies any weakness of her extremities. States her neck feels like it is tingling. Came by EMS. Did not take anything for symptoms prior to arrival. [facility] Medical History Anxiety Asthma Chronic pain Coronary artery disease Depression Former smoker GERD (gastroesophageal reflux disease) History of fracture of hand Hypertension Irregular heart beat Migraines On home oxygen therapy PTSD (post-traumatic stress disorder) Seizures Stroke/cerebrovascular accident Home Medications albuterol sulfate 2 puff INHALATION Q6H PRN PRN 02/20/18 [History Last Taken 06/21/19 18:00] calcium carbonate-vitamin D3 1 ea PO DAILY 06/13/19 [History Last Taken 06/19/19] metoprolol succinate 25 mg PO DAILY 07/08/19 [History Last Taken 07/21/19] divalproex 250 mg PO BIDCM 11/15/19 [History Last Taken Unknown] topiramate 200 mg PO BID 11/15/19 [History Last Taken Unknown] duloxetine 30 mg PO DAILY 05/27/20 [History Last Taken Unknown] lurasidone 1 tab PO DAILY 05/27/20 [History Last Taken Unknown] pantoprazole 40 mg PO BID 05/27/20 [History Last Taken Unknown] metformin 500 mg PO DAILY 09/02/20 [History Last Taken Unknown] ondansetron 4 mg PO Q8H PRN #10 tab 09/11/20 [Rx Last Taken Unknown] psyllium husk (aspartame) [Metamucil Fiber Singles] 1 packet PO DAILY PRN PRN #0 ea 09/19/20 [Rx Last Taken Unknown] hydroxyzine pamoate [Vistaril] 25 mg PO TID PRN #14 cap 12/05/20 [Rx Last Taken Unknown] alendronate [Fosamax] 70 mg PO QWEEK 02/18/21 [History Last Taken Unknown] furosemide [Lasix] 20 mg PO DAILY 02/18/21 [History Last Taken Unknown] mirtazapine 30 mg PO QHS 02/18/21 [History Last Taken Unknown] pravastatin 80 mg PO QHS 02/18/21 [History Last Taken Unknown] prazosin 5 mg PO QHS 02/18/21 [History Last Taken Unknown] methocarbamol 500 mg PO 4X/DAY PRN PRN 10 Days #40 tab 06/23/21 [Rx Last Taken Unknown] diazepam [Valium] 2 mg PO TID PRN 5 Days #15 tab 07/10/21 [Rx Last Taken Unknown] Allergy/AdvReac Type Severity Reaction Status Date / Time acetaminophen [From Tylenol] AdvReac Upset Verified 08/14/21 23:17 Stomach amoxicillin [From Augmentin] AdvReac Hives Verified 08/14/21 23:17 clavulanic acid AdvReac Hives Verified 08/14/21 23:17 [From Augmentin] ibuprofen [From Advil] AdvReac Nausea Verified 08/14/21 23:17 sulfamethoxazole AdvReac Vomiting Verified 08/14/21 23:17 [From Bactrim] sumatriptan [From Imitrex] AdvReac Vomiting Verified 08/14/21 23:17 sumatriptan succinate AdvReac Vomiting Verified 08/14/21 23:17 [From Imitrex] trimethoprim [From Bactrim] AdvReac Vomiting Verified 08/14/21 23:17 BEE STING Allergy Anaphylaxis Uncoded 08/14/21 23:17 ANTI PSYCHOTICS AdvReac Other Uncoded 08/14/21 23:17 PAPER TAPE AdvReac Rash Uncoded 08/14/21 23:17 Family History Mother Hypertension Father Hypertension Surgical History H/O hand surgery H/O knee surgery History of cholecystectomy History of left heart catheterization (06/23/19) Social History household members: none Smoking Status: Current every day smoker tobacco type: cigarettes alcohol intake: never substance use type: does not use ROS ROS ED Constitutional Constitutional ED: Denies chills or fever(s) Eyes Eyes: Denies blurry vision, change in vision or diplopia ENT ENT ED: Denies ear pain, rhinorrhea or sore throat Cardiovascular Cardiovascular: Denies chest pain Respiratory/Chest Respiratory/Chest: Denies dyspnea Gastrointestinal Gastrointestinal: Denies abdominal pain or vomiting Musculoskeletal Musculoskeletal: Reports arthralgias, back pain and neck pain Integumentary Denies rash Neurologic Neurologic: Reports headache(s); Denies paresthesias or weakness Psychiatric Psychiatric: Denies depression Hematologic/Lymphatic Hematologic/Lymphatic: Denies easy bleeding or easy bruising EXAM Physical Exam Const Vital Signs: 08/22/21 01:36 08/22/21 02:56 Temperature 97.8 F 97.8 F Temperature Source Temporal Pulse Rate 106 H 80 Respiratory Rate 18 17 Blood Pressure 144/78 H 140/74 H Blood Pressure Mean 100 Pulse Ox 96 99 Oxygen Delivery Method Room Air Positive well nourished and well developed General Appearance ED: well developed and NAD HEENT Reports normocephalic and TM's clear atraumatic; Negative for hematoma or tenderness Tympanic Membrane ED: Yes TM's clear Eyes PERRL and EOMs intact bilaterally Neck full ROM and supple Neck Narrative: No pinpoint bony tenderness. Range of motion preserved. No step-off side. Diffuse paraspinal tenderness Chest Wall inspection of chest normal Resp normal respiratory effort and clear to auscultation bilaterally Cardio regular rate and regular rhythm Back/Spine Thoracic Spine / Upper Back: Negative for thoracic spinal tenderness Lumbar Spine / Lower Back: Negative for lumbar spinal tenderness Extremity normal to inspection and full ROM Neuro oriented x3, CN's II-XII intact bilaterally, no focal motor deficits and no sensory deficits noted Sensorium / Orientation: alert Psych mental status grossly normal Skin Lesions: no lesions Rashes: no rashes MDM MDM MDM Narrative Medical decision making narrative: Patient evaluated for head injury as well as back and neck pain associated with mechanical fall. Given mechanism and pain CT of the head as well as C-spine is obtained. No acute processes seen. Patient is given a shot of IM Toradol to help with her neck/back pain as well as her headache. Will be discharged back home. Patient does not have any focal neurologic deficits or other signs of trauma. Radiography Diagnostic Testing: Clinical Impression(s) from Imaging Studies Brain CT 08/22/21 01:43 IMPRESSION: Negative unenhanced CT scan of the brain. Electronically Signed: Rigoberto Cabrera MD at 2:21 EDT , Cervical Spine CT 08/22/21 01:43 IMPRESSION: Negative unenhanced CT examination of the cervical spine for acute fracture or subluxation. Electronically Signed: Rigoberto Cabrera MD at 2:25 EDT , Discharge Plan Triage Chief Complaint: Fall ED Provider: Ayah Bauer Dx/Rx/DC Orders Clinical Impression: Fall from slipping, Closed head injury, Acute neck pain, Migraine headache Instructions: ED Head Injury (Adult), ED Neck Pain, ED Fall Prevention Prescriptions: No Action albuterol sulfate 1 INHALER inhaler 2 puff inhalation Q6H PRN PRN (Reason: Shortness Of Breath) RF: 0 calcium carbonate-vitamin D3 1 EACH tablet 1 ea PO DAILY RF: 0 metoprolol succinate 25 MG tablet extended release 24 hr 25 mg PO DAILY RF: 0 divalproex 250 MG tablet 250 mg PO BIDCM RF: 0 topiramate 200 MG tablet 200 mg PO BID RF: 0 pantoprazole 40 MG tablet 40 mg PO BID RF: 0 lurasidone 40 MG tablet 1 tab PO DAILY RF: 0 duloxetine 30 MG capsule,delayed release(DR/EC) 30 mg PO DAILY RF: 0 metformin 500 mg tablet 500 mg PO DAILY RF: 0 ondansetron 4 mg tablet,disintegrating 4 mg PO Q8H PRN (Reason: nausea and vomiting) Qty: 10 RF: 0 Metamucil Fiber Singles 3.4 gram Powder In Packet 1 packet PO DAILY PRN PRN (Reason: Constipation) Qty: 0 RF: 0 hydroxyzine pamoate [Vistaril] 25 mg capsule 25 mg PO TID PRN (Reason: itching) Qty: 14 RF: 0 mirtazapine 30 mg Tablet,Disintegrating 30 mg PO QHS RF: 0 prazosin 1 mg Capsule 5 mg PO QHS RF: 0 alendronate [Fosamax] 70 mg Tablet 70 mg PO QWEEK RF: 0 pravastatin 80 mg Tablet 80 mg PO QHS RF: 0 furosemide [Lasix] 20 mg Tablet 20 mg PO DAILY RF: 0 methocarbamol 500 mg tablet 500 mg PO 4X/DAY PRN PRN (Reason: Muscle pain/spasm) 10 Days Qty: 40 RF: 0 diazepam [Valium] 2 mg tablet 2 mg PO TID PRN (Reason: muscle spasm) 5 Days Qty: 15 RF: 0 Primary Care Provider: Justino Escoto Referrals: Justino Escoto MD [Primary Care Provider] - Disposition Disposition: Home, Self Care Discharge Date/Time: 08/22/21 02:57
== END 2021-08-22 02:57 | disposition home or self-care (01) ==
PROVIDERS: Emergency Provider Emergency Medicine; PCP Family Medicine; Visit Provider Emergency Medicine
DX: S09.90XA Unspecified injury of head, initial encounter (principal); M54.2 Cervicalgia; G43.909 Migraine, unspecified, not intractable, without status migrainosus; I10 Essential (primary) hypertension; I25.10 Atherosclerotic heart disease of native coronary artery without angina pectoris; F17.210 Nicotine dependence, cigarettes, uncomplicated; K21.9 Gastro-esophageal reflux disease without esophagitis; Z86.73 Personal history of transient ischemic attack (TIA), and cerebral infarction without residual deficits; Z99.81 Dependence on supplemental oxygen; Z79.84 Long term (current) use of oral hypoglycemic drugs; W18.11XA Fall from or off toilet without subsequent striking against object, initial encounter; W05.0XXA Fall from non-moving wheelchair, initial encounter
CPT/HCPCS: 70450; 72125; 96372; 99283

== ENCOUNTER 2021-09-02 03:41 | Emergency (ER) | payer MEDICARE, MEDICAID, SELFPAY ==
[2021-09-02 03:42] VITALS: PULSE 89; RESP 17; TEMP 36.4; O2SAT 99; BMI 47.5
[2021-09-02 03:45] VITALS: BP 122/70
--- NOTE | 2021-09-02 03:46 | ED.RN ---
PT STOPPED ANSWERING QUESTIONS AND REFUSED TO CHANGE INTO GOWN. STATES ONLY OTHR SX OTHER THAN ABDOMINAL PAIN AND N/V IS DIZZINESS AND ALL OF IT STARTED JUST BEFORE SHE CALLED EMS.
--- NOTE | 2021-09-02 03:49 | NURSING ---
PT BROUGHT ENERGY DRIN, PORK RINDS, AND W/C WITH HER.
--- NOTE | 2021-09-02 03:59 | ED.RN ---
PATIENT WENT TO [facility] BEFORE COMING HERE AND CALLED TO HAVE THE [facility] GET HER THERE. SHE IS DRINKING HER ENERGY DRINK. STAFF ASKED HER NOT TO DRINK IT SHE IS STILL WAITING ON THE DOCTOR BUT PATIENT STATES SHE IS GOING TO DO WHAT SHE WANTS TO DO.
--- NOTE | 2021-09-02 04:07 | EDS_ITS ---
HPI History of Present Illness Chief Complaint: Abd Pain Informant: patient Onset/Context/Timing Onset: Today Context: Sudden Onset Current Severity: Mild Maximum Severity: Moderate Narrative Narrative: Patient presents via EMS secondary to abdominal pain with nausea and vomiting. Patient states she ate some [employer] cheddar soup around 1 AM that she had bought at the [facility] Shortly after she felt ill and developed abdominal pain with a single episode of vomiting. She called EMS. She states she felt like she may have a seizure. Patient presents to the emergency room with a bag of pork rinds and an energy drink. When I enter the room to evaluate her she is already drinking her energy drink. [facility] Medical History Anxiety and depression Asthma Chronic pain Coronary artery disease Depression Diabetes Former smoker GERD (gastroesophageal reflux disease) History of fracture of hand Hypertension Irregular heart beat Legal blindness Migraines On home oxygen therapy PTSD (post-traumatic stress disorder) Schizophrenia Seizures Stroke/cerebrovascular accident Home Medications albuterol sulfate 2 puff INHALATION Q6H PRN PRN 02/20/18 [History Last Taken 06/21/19 18:00] calcium carbonate-vitamin D3 1 ea PO DAILY 06/13/19 [History Last Taken 06/19/19] metoprolol succinate 25 mg PO DAILY 07/08/19 [History Last Taken 07/21/19] divalproex 250 mg PO BIDCM 11/15/19 [History Last Taken Unknown] topiramate 200 mg PO BID 11/15/19 [History Last Taken Unknown] duloxetine 30 mg PO DAILY 05/27/20 [History Last Taken Unknown] lurasidone 1 tab PO DAILY 05/27/20 [History Last Taken Unknown] pantoprazole 40 mg PO BID 05/27/20 [History Last Taken Unknown] metformin 500 mg PO DAILY 09/02/20 [History Last Taken Unknown] ondansetron 4 mg PO Q8H PRN #10 tab 09/11/20 [Rx Last Taken Unknown] psyllium husk (aspartame) [Metamucil Fiber Singles] 1 packet PO DAILY PRN PRN #0 ea 09/19/20 [Rx Last Taken Unknown] hydroxyzine pamoate [Vistaril] 25 mg PO TID PRN #14 cap 12/05/20 [Rx Last Taken Unknown] alendronate [Fosamax] 70 mg PO QWEEK 02/18/21 [History Last Taken Unknown] furosemide [Lasix] 20 mg PO DAILY 02/18/21 [History Last Taken Unknown] mirtazapine 30 mg PO QHS 02/18/21 [History Last Taken Unknown] pravastatin 80 mg PO QHS 02/18/21 [History Last Taken Unknown] prazosin 5 mg PO QHS 02/18/21 [History Last Taken Unknown] methocarbamol 500 mg PO 4X/DAY PRN PRN 10 Days #40 tab 06/23/21 [Rx Last Taken Unknown] diazepam [Valium] 2 mg PO TID PRN 5 Days #15 tab 07/10/21 [Rx Last Taken Unknown] Allergy/AdvReac Type Severity Reaction Status Date / Time acetaminophen [From Tylenol] AdvReac Upset Verified 09/02/21 03:44 Stomach amoxicillin [From Augmentin] AdvReac Hives Verified 09/02/21 03:44 clavulanic acid AdvReac Hives Verified 09/02/21 03:44 [From Augmentin] ibuprofen [From Advil] AdvReac Nausea Verified 09/02/21 03:44 sulfamethoxazole AdvReac Vomiting Verified 09/02/21 03:44 [From Bactrim] sumatriptan [From Imitrex] AdvReac Vomiting Verified 09/02/21 03:44 sumatriptan succinate AdvReac Vomiting Verified 09/02/21 03:44 [From Imitrex] trimethoprim [From Bactrim] AdvReac Vomiting Verified 09/02/21 03:44 BEE STING Allergy Anaphylaxis Uncoded 09/02/21 03:44 ANTI PSYCHOTICS AdvReac Other Uncoded 09/02/21 03:44 PAPER TAPE AdvReac Rash Uncoded 09/02/21 03:44 Family History Mother Hypertension Father Hypertension Surgical History H/O hand surgery H/O knee surgery History of cholecystectomy History of left heart catheterization (06/23/19) Social History household members: none Smoking Status: Current every day smoker tobacco type: cigarettes alcohol intake: never substance use type: does not use ROS ROS ED Constitutional Constitutional ED: Denies chills or fever(s) Eyes Eyes: Denies change in vision ENT ENT ED: Denies sore throat Cardiovascular Cardiovascular: Denies chest pain Respiratory/Chest Respiratory/Chest: Denies cough or dyspnea Gastrointestinal Gastrointestinal: Reports abdominal pain, nausea and vomiting; Denies diarrhea Genitourinary Genitourinary ED: Denies dysuria Musculoskeletal Musculoskeletal: Denies back pain Integumentary Denies rash Neurologic Neurologic: Denies headache(s) or weakness Allergic/Immunologic Allergic/Immunologic ED: Denies urticaria EXAM Physical Exam Const Vital Signs: 09/02/21 03:42 09/02/21 03:45 Temperature 97.6 F L Temperature Source Temporal Pulse Rate 89 Respiratory Rate 17 Blood Pressure 122/70 H Blood Pressure Mean 87 Pulse Ox 99 Oxygen Delivery Method Room Air Positive well nourished and well developed General Appearance ED: well developed HEENT Reports moist mucous membranes Eyes PERRL and EOMs intact bilaterally Neck supple Chest Wall inspection of chest normal and palpation of chest normal Resp normal respiratory effort and clear to auscultation bilaterally Cardio regular rate and regular rhythm GI normal to inspection, nondistended, normoactive bowel sounds and non-tender Palpation: soft Extremity normal to inspection Neuro oriented x3 Sensorium / Orientation: alert Psych mental status grossly normal Skin no rashes or lesions noted MDM MDM MDM Narrative Medical decision making narrative: Patient was given p.o. doses of Bentyl, Zofran, Protonix. Treatment and Re-Evaluation Narrative: I was notified a short time later that the patient is requesting her paperwork and wants to leave. She wheeled herself out to the waiting room to call her cab before I can get to the room to reevaluate her. Discharge Plan Triage Chief Complaint: Abd Pain ED Provider: Alisa Caicedo Dx/Rx/DC Orders Clinical Impression: Abdominal pain Prescriptions: No Action albuterol sulfate 1 INHALER inhaler 2 puff inhalation Q6H PRN PRN (Reason: Shortness Of Breath) RF: 0 calcium carbonate-vitamin D3 1 EACH tablet 1 ea PO DAILY RF: 0 metoprolol succinate 25 MG tablet extended release 24 hr 25 mg PO DAILY RF: 0 divalproex 250 MG tablet 250 mg PO BIDCM RF: 0 topiramate 200 MG tablet 200 mg PO BID RF: 0 pantoprazole 40 MG tablet 40 mg PO BID RF: 0 lurasidone 40 MG tablet 1 tab PO DAILY RF: 0 duloxetine 30 MG capsule,delayed release(DR/EC) 30 mg PO DAILY RF: 0 metformin 500 mg tablet 500 mg PO DAILY RF: 0 ondansetron 4 mg tablet,disintegrating 4 mg PO Q8H PRN (Reason: nausea and vomiting) Qty: 10 RF: 0 Metamucil Fiber Singles 3.4 gram Powder In Packet 1 packet PO DAILY PRN PRN (Reason: Constipation) Qty: 0 RF: 0 hydroxyzine pamoate [Vistaril] 25 mg capsule 25 mg PO TID PRN (Reason: itching) Qty: 14 RF: 0 mirtazapine 30 mg Tablet,Disintegrating 30 mg PO QHS RF: 0 prazosin 1 mg Capsule 5 mg PO QHS RF: 0 alendronate [Fosamax] 70 mg Tablet 70 mg PO QWEEK RF: 0 pravastatin 80 mg Tablet 80 mg PO QHS RF: 0 furosemide [Lasix] 20 mg Tablet 20 mg PO DAILY RF: 0 methocarbamol 500 mg tablet 500 mg PO 4X/DAY PRN PRN (Reason: Muscle pain/spasm) 10 Days Qty: 40 RF: 0 diazepam [Valium] 2 mg tablet 2 mg PO TID PRN (Reason: muscle spasm) 5 Days Qty: 15 RF: 0 Primary Care Provider: Justino Escoto Referrals: Justino Escoto MD [Primary Care Provider] - 1 Week if not improving Disposition Disposition: Home, Self Care
[2021-09-02] MEDS: Ondansetron ODT 4 MG Tablet PO (04:14)
[2021-09-02] MEDS: Pantoprazole Sodium 20 MG Tablet PO (04:14)
[2021-09-02] MEDS: Dicyclomine 10 MG Capsule 20 MG PO (04:14)
== END 2021-09-02 04:53 | disposition home or self-care (01) ==
PROVIDERS: Emergency Provider Emergency Medicine; PCP Family Medicine; Visit Provider Emergency Medicine
DX: R10.9 Unspecified abdominal pain (principal); E11.9 Type 2 diabetes mellitus without complications; R11.2 Nausea with vomiting, unspecified; I10 Essential (primary) hypertension; I25.10 Atherosclerotic heart disease of native coronary artery without angina pectoris; F17.210 Nicotine dependence, cigarettes, uncomplicated; Z79.84 Long term (current) use of oral hypoglycemic drugs; Z79.899 Other long term (current) drug therapy; Z99.81 Dependence on supplemental oxygen; Z86.73 Personal history of transient ischemic attack (TIA), and cerebral infarction without residual deficits
CPT/HCPCS: 99284

== ENCOUNTER 2021-09-15 14:47 | Emergency (ER) | payer MEDICARE, MEDICAID, SELFPAY ==
[2021-09-15 14:47] VITALS: BP 160/105; PULSE 95; RESP 20; TEMP 36.2; O2SAT 95; BMI 45.6
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
--- NOTE | 2021-09-15 14:55 | RAD_ITS ---
STUDY: X-RAY CHEST REASON FOR EXAM: Female, 65 years old. MENTAL HEALTH TECHNIQUE: Single AP portable view of the chest. COMPARISON: Comparison is made with prior study dated 08/13/2021. FINDINGS: EKG electrodes are seen. Stable elevation of the right hemidiaphragm. There is no demonstrated pleural abnormality. There is mild cardiac enlargement. Normal mediastinum and ita. Normal visualized pulmonary arteries. There is atherosclerotic tortuosity of the aortic arch and descending thoracic aorta. There are diffuse degenerative changes of the visualized thoracic spine. Normal visualized ribs, clavicles, and shoulders. There is no demonstrated abnormality of the visualized soft tissue structures of the upper abdomen. RAD/Chest 1 View (Portable) IMPRESSION: Mild cardiomegaly. The lungs are clear. Electronically Signed: Raoul Cobian MD at 15:33 EDT ,
[2021-09-15 15:04] LABS: Absolute Lymphocyte Count 3.71 X10^3/uL (0.83-4.51); Absolute Neutrophil Count 4.8 X10^3/uL (2.0-7.7); Basophil# 0.09 X10^3/uL; Basophil% 0.9 % (0-1); Eosinophil# 0.32 X10^3/uL; Eosinophils% 3.2 % (0-5); Hematocrit 41.9 % (37-47); Lymphocyte # 3.71 X10^3/ul (0.83-4.51); Lymphocyte % 36.7 % (19-41); Mean Corp Hgb Conc 33.4 g/dL (32-36); Mean Corpuscular Hgb 31.3 pg (27.0-32.0); Mean Corpuscular Volume 93.7 fL (81-99); Mean Platelet Vol. 10.3 fl (6.2-12.0); Monocyte# 1.16 X10^3/uL; Monocyte% 11.5 % (0-10); NRBC Flagged by Analyzer 0 % (0-5); Neutrophil % 47.5 % (47-70); Platelet Count 242 K/mm3 (150-450); RBC Distribution Width CV 13.1 % (11.6-14.6); RBC Distribution Width SD 45.2 fl (35.1-43.9); Red Blood Count 4.47 M/mm3 (4.2-5.4); White Blood Count 10.1 K/mm3 (4.4-11.0)
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
[2021-09-15 15:17] LABS: Anion Gap 8 (5-15); BUN 24 mg/dL (7-18); BUN/Creat Ratio 28.2 RATIO (10-20); Calcium,Total 9.7 mg/dL (8.5-10.1); Chloride 109 mmol/L (98-107); Creatinine, Serum 0.85 mg/dL (0.55-1.02); EST Glomerular Filtration Rate 71 mL/min (>60); Est Glom Filt Rate - Afr Amer 86 mL/min (>60); Estimated Creatinine Clearance 52.88 ml/min; Glucose 108 mg/dL (74-106); Sodium Level 143 mmol/L (136-145)
[2021-09-15 15:45] LABS: Alcohol, Blood (Medical)-Serum < 3.0 mg/dL
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
[2021-09-15 15:50] LABS: Bacteria 0 SEEN /hpf (None Seen); Mucous, Urine 0 SEEN /hpf (<or=2+); Red Blood Cells-Urine 0 SEEN /hpf (0-5)
[2021-09-15 16:01] LABS: Color, Urine Yellow (Yellow); Glucose, Dipstick Normal (Normal); Ketone-Dipstick Negative (Negative); Leukocyte Esterase-Dipstick 25 /ul (Negative); Nitrite-Dipstick Negative (Negative); Occult Blood-Urine Negative /ul (Negative); Protein-Dipstick Negative (Negative); Specific Gravity, Urine 1.015 (1.002-1.030); Urine Bilirubin Dipstick Negative (Negative); Urine Clarity Clear (Clear); Urine Urobilinogen Normal (Normal)
[2021-09-15 16:14] LABS: Amorphous Sediment 2+ URATE; Squamous Epithelial Cells - UA 0-5 SEEN /hpf (5-10); White Blood Cells 0-5 SEEN /hpf (0-5)
[2021-09-15 16:16] LABS: Amphetamine Urine VISTA NEGATIVE (<1000 ng/mL); Barbiturate Urine VISTA NEGATIVE (< 200 ng/mL); Benzodiazepine Urine VISTA NEGATIVE (< 200 ng/mL); Cocaine Urine VISTA NEGATIVE (< 300 ng/mL); Ecstacy Urine VISTA NEGATIVE (< 500 ng/mL); Methadone Urine VISTA NEGATIVE (< 300 ng/mL); PCP Urine VISTA NEGATIVE (< 25 ng/mL); THC Urine VISTA NEGATIVE (< 50 ng/mL); Vista UDS pH Range 6
[2021-09-15 17:54] VITALS: BP 126/83; PULSE 77; RESP 17; O2SAT 98
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
--- NOTE | 2021-09-15 18:53 | CM.ED ---
Social work Note Referral faxed to [facility]. Nicole Rascon YIELD LOSS INSPECTOR, INDUSTRIAL ENGINEERING DIRECTOR
[2021-09-15 21:00] VITALS: BP 136/78; PULSE 78; RESP 14; O2SAT 98
--- NOTE | 2021-09-15 21:48 | ED.RN ---
pt. had phone was calling different [facility] requesting she could bring her dog. phone taken
--- NOTE | 2021-09-15 22:07 | ED.RN ---
PATIENT SHOWING SIGNS OF PARANOID THOUGHTS AT THIS TIME. PATIENT REQUESTING DRINKS BE OPENED IN FRONT OF HER AND SHE MUST INSPECT THE CUP PRIOR TO POURING DRINK INTO CUP
--- NOTE | 2021-09-15 22:44 | EKG12_ITS ---
Test Reason : MHC Blood Pressure : / mmHG Vent. Rate : 084 BPM Atrial Rate : 084 BPM P-R Int : 196 ms QRS Dur : 070 ms QT Int : 364 ms P-R-T Axes : 043 -16 012 degrees QTc Int : 430 ms Normal sinus rhythm Normal ECG Confirmed by NADIA GUNTER MD ([id number]), legal editor EVY AUGUSTINE ([id number]) on 09/18/2021 11:33:28 AM Referred By: ES Confirmed By:NADIA GUNTER MD
--- NOTE | 2021-09-15 22:51 | ED.RN ---
PATIENT HAS BEEN DENIED AT [facility] PATIENT PENDING AT [facility]
[2021-09-15 23:20] VITALS: BP 138/78; PULSE 88; RESP 14; O2SAT 98
[2021-09-15] MEDS: Divalproex Sodium 125 MG Tablet 375 MG PO (23:21)
[2021-09-15] MEDS: Mirtazapine 30 MG Tablet PO (23:21)
[2021-09-15 23:55] LABS: Bedside Glucose 143 mg/dL (74-106)
[2021-09-16 01:00] VITALS: BP 136/76; PULSE 86; RESP 18; O2SAT 98
[2021-09-16 03:00] VITALS: RESP 16
[2021-09-16 05:00] VITALS: RESP 16
[2021-09-16 07:13] VITALS: RESP 16
[2021-09-16] MEDS: Aspirin 81 MG TAB.CHEW PO (08:51)
[2021-09-16] MEDS: Metoprolol(XL)Succ 25 MG Tablet PO (08:52)
[2021-09-16] MEDS: Furosemide 20 MG Tablet PO (08:52)
[2021-09-16] MEDS: Pantoprazole Sodium 40 MG Tablet PO (08:52)
[2021-09-16] MEDS: Topiramate 200 MG Tablet PO (08:52)
--- NOTE | 2021-09-16 08:53 | ED.RN ---
Pt is being belligerent and paranoid. Pt refusing to eat food that is provided and refusing to take meds. Per pt she does not want her metformin, depakote or anti psychotics. Pt is being given Geodon and Ativan. Pt continues to be belligerent and demand things.
[2021-09-16] MEDS: LORazepam 2 MG/ML Syringe 1 MG IM (08:54)
[2021-09-16] MEDS: Ziprasidone IM 20 MG/ML VIAL 10 MG IM (08:54)
[2021-09-16 09:23] VITALS: BP 100/63; PULSE 74; RESP 17; O2SAT 95
--- NOTE | 2021-09-16 10:27 | ED.RN ---
Per patient request the [facility] was called by this nurse and given the contact information for her dog control officer, Mony, to claim her dog.
--- NOTE | 2021-09-16 11:54 | ED.RN ---
NURSE TO NURSE REPORT GIVEN TO RAY AT 1131.
--- NOTE | 2021-09-16 12:12 | ED.RN ---
SPOKE WITH TASH, PT.'S RESEARCH SUPPORT SPECIALIST. TASH HAS PT. DOG AND WILL BE STOPPING BY ED TO SENIOR WATER RESOURCES ENGINEER PT. KEYS TO PT. HOME TO GET BELONGINGS AND FOOD FOR DOG.
[2021-09-16 13:18] VITALS: BP 110/80; PULSE 82; RESP 16; O2SAT 98
--- NOTE | 2021-09-18 16:02 | CM.ED ---
Social Work Note Pt has CM Nicole Alvarado ([phone]) through [facility]. SW placed a call to Nicole and left message regarding pt. Nicole Rascon FELT HOOKER, CLERICAL GRADER
--- NOTE | 2021-09-18 20:17 | CM.ED ---
ELÍAS received voice mail from Wallace at [facility] inquiring as to where patient is currently placed at. ELÍAS reviewed record and noted that patient is at [facility] as ELÍAS helms. ELÍAS called Nicole Alexandre at [facility] and she confirmed patient is at [facility]. Plan: Inpatient psych Geno HERNÁNDEZ
== END 2021-09-16 16:38 ==
LOC: ED 15:12
PROVIDERS: Emergency Provider Emergency Medicine; PCP Family Medicine; Visit Provider Emergency Medicine
DX: F20.9 Schizophrenia, unspecified (principal); F22 Delusional disorders; E11.9 Type 2 diabetes mellitus without complications; I25.10 Atherosclerotic heart disease of native coronary artery without angina pectoris; I10 Essential (primary) hypertension; Z20.822 Contact with and (suspected) exposure to COVID-19; Z78.1 Physical restraint status; J45.909 Unspecified asthma, uncomplicated; G89.29 Other chronic pain; K21.9 Gastro-esophageal reflux disease without esophagitis; E66.9 Obesity, unspecified; F17.210 Nicotine dependence, cigarettes, uncomplicated; Z99.81 Dependence on supplemental oxygen; Z79.84 Long term (current) use of oral hypoglycemic drugs; Z79.82 Long term (current) use of aspirin; Z86.73 Personal history of transient ischemic attack (TIA), and cerebral infarction without residual deficits
CPT/HCPCS: 71045; 80048; 80307; 81001; 82077; 82962; 85025; 87635; 87811; 93005; 96372; 99285; J3486; U0003; U0005